=== PATIENT | male | born 1965 | race African-American/Black ===

== ENCOUNTER 2020-05-08 07:14 | Inpatient (IN) | payer BC ==
[2020-05-08] VITALS (13 sets, daily range): BP systolic 119–150; BP diastolic 70–103
[~2020-05-08] VITALS: Ht 180.3 cm; Wt 113.5 kg
[2020-05-08] MEDS ORDERED: PROPOFOL 50 ML IV ONE (07:33)
[2020-05-08] MEDS: PROPOFOL 100 ML IV PRN (07:35)
[2020-05-08] MEDS ORDERED: ALBUTEROL SULFATE 2.5 MG/3 ML NEBU. NEB ONE (07:45)
[2020-05-08] MEDS ORDERED: methylPREDNISolone SOD SUCC PF 125 MG/2 ML VIAL. IV ONE (07:45)
[2020-05-08] MEDS ORDERED: SUCCINYLCHOLINE 200 MG/10 ML VIAL. IV ONE (07:45)
[2020-05-08] MEDS ORDERED: IPRATRPIUM/ALBUTEROL 0.5/2.5MG 3 ML NEBU. NEB ONE (07:45)
[2020-05-08] MEDS ORDERED: ETOMIDATE 20 MG/10 ML VIAL. IV ONE ×2 (07:45→07:55)
[2020-05-08] MEDS ORDERED: cefTRIAXone IV Push 1 GM VIAL. IVP ONE (07:45)
[2020-05-08 07:53] LABS: BASO % 0 % (0-3); EOS # 0.1 x10^3/uL (0.0-0.7); EOS % 1 % (0-3); HEMATOCRIT 48.3 % (39.0-53.0); HEMOGLOBIN 14.6 g/dL (13.0-17.5); LYMPH # 6.9 x10^3/uL (1.0-4.8); LYMPH % 44 % (24-48); MEAN CORPUSCULAR HEMOGLOBIN 24 pg (25-35); MEAN CORPUSCULAR HGB CONC 30 g/dL (31-37); MEAN CORPUSCULAR VOLUME 78 fL (79-100); MONO % 6 % (0-9); NEUT # 7.9 x10^3/uL (1.8-7.7); NEUT % 49 % (31-73); PLATELET COUNT 283 x10^3/uL (140-400); RED BLOOD COUNT 6.18 x10^6/uL (4.30-5.70); RED CELL DISTRIBUTION WIDTH 17.5 % (11.5-14.5)
[2020-05-08] MEDS ORDERED: PROPOFOL 10 MG/ML (20ML) VIAL. IV ONE (08:00)
[2020-05-08] MEDS: MIDAZOLAM HCL/PF 5 MG/5 ML VIAL. IV PRN ×6 (08:05→12:55)
[2020-05-08 08:06] LABS: CALCIUM 7.9 mg/dL (8.5-10.1); CREATININE 2.2 mg/dL (0.7-1.3); GFR 31.1; POTASSIUM 4.5 mmol/L (3.5-5.1)
--- NOTE | 2020-05-08 08:09 | RAD ---
EXAM: Chest, single view. HISTORY: Intubation. COMPARISON: None. FINDINGS: A frontal view of the chest is obtained. There is an endotracheal tube within the mid trachea. There is a nasogastric tube within the stomach. There is diffuse increased interstitial opacity. No pleural effusion or pneumothorax is seen. There is an enlarged cardiac silhouette, a component of which is accentuated due to portable supine technique. IMPRESSION: 1. Endotracheal tube and nasogastric tube in expected position. 2. Diffuse increased interstitial opacity likely due to interstitial infiltrate. Electronically signed by: Jaycee Moyer MD (05/08/2020 8:07 AM) [id number]
[2020-05-08 08:12] LABS: ALBUMIN 3.1 g/dL (3.4-5.0); TOTAL BILIRUBIN 0.5 mg/dL (0.2-1.0); TOTAL PROTEIN 6.1 g/dL (6.4-8.2)
[2020-05-08] MEDS ORDERED: IV NORMAL SALINE 1000ML BAG 1,000 ML IV ONE (08:30)
[2020-05-08] MEDS ORDERED: MIDAZOLAM HCL/PF 5 MG/5 ML VIAL. IV ONE (08:30)
--- NOTE | 2020-05-08 08:30 | PHYS DOC ---
General Adult EDM: Chief Complaint: DYSPNEA/RESPIRATOY DISTRESS HPI: HPI: Patient is a 54-year-old male who lives at home with a history of COPD who presents via EMS with a GCS of 8 and severe respiratory distress. Patient is unable to tell me exactly when his symptoms started. There is been no reported fever chills or sweats. EMS states that there was hydrocodone in the house but they were told he does not take pain medication. EMS did give him Narcan in route and they state that he improved some after being given Narcan. Unknown whether he has been exposed to COVID. [] Review of Systems: Review of Systems: Review of systems is unobtainable secondary to the critical nature of the patient's illness Heart Score: Risk Factors: Risk Factors: DM, Current or recent (<one month) smoker, HTN, HLP, family history of CAD, obesity. Risk Scores: Score 0 - 3: 2.5% MACE over next 6 weeks - Discharge Home Score 4 - 6: 20.3% MACE over next 6 weeks - Admit for Clinical Observation Score 7 - 10: 72.7% MACE over next 6 weeks - Early Invasive Strategies Current Medications: Current Medications Medications (Trade) Dose Ordered Sig/Dario Start Time Stop Time Status Last Admin Dose Admin Albuterol Sulfate (Ventolin Neb Soln) 2.5 mg 1X ONCE 05/08/20 07:45 05/08/20 07:46 UNV Albuterol/ Ipratropium (Duoneb) 6 ml 1X ONCE 05/08/20 07:45 05/08/20 07:46 UNV Ceftriaxone Sodium (Rocephin) 1 gm 1X ONCE 05/08/20 07:45 05/08/20 07:46 UNV Chlorhexidine Gluconate (Peridex) 15 ml BID 05/08/20 09:00 UNV Etomidate (Amidate) 20 mg 1X ONCE 05/08/20 07:45 05/08/20 07:46 UNV 05/08/20 07:30 20 MG Fentanyl Citrate 30 ml @ 0 mls/hr CONT PRN 05/08/20 08:15 UNV Fentanyl Citrate (Fentanyl 2ml Vial) 50 mcg PRN Q1HR PRN 05/08/20 07:45 UNV Methylprednisolone Sodium Succinate (SOLU-Medrol 125MG VIAL) 125 mg 1X ONCE 05/08/20 07:45 05/08/20 07:46 UNV Midazolam HCl 100 ml @ 0 mls/hr CONT PRN 05/08/20 08:15 Propofol (Diprivan) 40 mg 1X ONCE 05/08/20 08:00 05/08/20 08:01 UNV Sodium Chloride 1,000 ml @ 1,000 mls/hr 1X ONCE 05/08/20 08:30 05/08/20 09:29 UNV Succinylcholine Chloride (Anectine) 100 mg 1X ONCE 05/08/20 07:45 05/08/20 07:46 UNV 05/08/20 07:31 100 MG Allergies: Allergies: Allergies Coded Allergies Type Severity Reaction Last Updated Verified No Known Drug Allergies 05/08/20 No Physical Exam: PE: Constitutional: Well developed, well nourished, severe respiratory distress appears acutely ill [] HENT: Normocephalic, atraumatic, bilateral external ears normal, oropharynx moist, no oral exudates, nose normal. [] Eyes: PERRLA, EOMI, conjunctiva normal, no discharge. [] Neck: Normal range of motion, no tenderness, supple, no stridor. [] Cardiovascular:Heart rate regular rhythm, no murmur [] Lungs & Thorax: Diminished breath sounds wheezes in the apices] Abdomen: Bowel sounds normal, soft, no tenderness, no masses, no pulsatile masses. [] Skin: Warm, dry, no erythema, no rash. [] Back: No tenderness, no CVA tenderness. [] Extremities: No tenderness, no cyanosis, no clubbing, ROM intact, no edema. [] Neurologic: Obtunded but does move all 4 extremities [] Psychologic: Obtunded [] Current Patient Data: Labs: Laboratory Tests Test 05/08/20 07:20 White Blood Count 16.0 x10^3/uL (4.0-11.0) H Red Blood Count 6.18 x10^6/uL (4.30-5.70) H Hemoglobin 14.6 g/dL (13.0-17.5) Hematocrit 48.3 % (39.0-53.0) Mean Corpuscular Volume 78 fL (79-100) L Mean Corpuscular Hemoglobin 24 pg (25-35) L Mean Corpuscular Hemoglobin Concent 30 g/dL (31-37) L Red Cell Distribution Width 17.5 % (11.5-14.5) H Platelet Count 283 x10^3/uL (140-400) Neutrophils (%) (Auto) 49 % (31-73) Lymphocytes (%) (Auto) 44 % (24-48) Monocytes (%) (Auto) 6 % (0-9) Eosinophils (%) (Auto) 1 % (0-3) Basophils (%) (Auto) 0 % (0-3) Neutrophils # (Auto) 7.9 x10^3/uL (1.8-7.7) H Lymphocytes # (Auto) 6.9 x10^3/uL (1.0-4.8) H Monocytes # (Auto) 1.0 x10^3/uL (0.0-1.1) Eosinophils # (Auto) 0.1 x10^3/uL (0.0-0.7) Basophils # (Auto) 0.0 x10^3/uL (0.0-0.2) Sodium Level 141 mmol/L (136-145) Potassium Level 4.5 mmol/L (3.5-5.1) Chloride Level 103 mmol/L (98-107) Carbon Dioxide Level 29 mmol/L (21-32) Anion Gap 9 (6-14) Blood Urea Nitrogen 33 mg/dL (8-26) H Creatinine 2.2 mg/dL (0.7-1.3) H Estimated GFR (Cockcroft-Gault) 31.1 BUN/Creatinine Ratio 15 (6-20) Glucose Level 237 mg/dL (70-99) H Calcium Level 7.9 mg/dL (8.5-10.1) L Total Bilirubin 0.5 mg/dL (0.2-1.0) Aspartate Amino Transferase (AST) 64 U/L (15-37) H Alanine Aminotransferase (ALT) 93 U/L (16-63) H Alkaline Phosphatase 37 U/L (46-116) L Troponin I Quantitative 1.123 ng/mL (0.000-0.055) Total Protein 6.1 g/dL (6.4-8.2) L Albumin 3.1 g/dL (3.4-5.0) L Albumin/Globulin Ratio 1.0 (1.0-1.7) Laboratory Tests 05/08/20 07:20 Laboratory Tests 05/08/20 07:20 Vital Signs: Vital Signs Date Time Temp Pulse Resp B/P (MAP) Pulse Ox O2 Delivery O2 Flow Rate FiO2 05/08/20 07:46 100 Ventilator EKG: EKG: EKG: Sinus tachycardia rate of [address]-T changes [] Radiology/Procedures: Radiology/Procedures: []PROCEDURE: CHEST AP ONLY EXAM: Chest, single view. HISTORY: Intubation. COMPARISON: None. FINDINGS: A frontal view of the chest is obtained. There is an endotracheal tube within the mid trachea. There is a nasogastric tube within the stomach. There is diffuse increased interstitial opacity. No pleural effusion or pneumothorax is seen. There is an enlarged cardiac silhouette, a component of which is accentuated due to portable supine technique. IMPRESSION: 1. Endotracheal tube and nasogastric tube in expected position. 2. Diffuse increased interstitial opacity likely due to interstitial infiltrate. Course & Med Decision Making: Course & Med Decision Making Pertinent Labs and Imaging studies reviewed. (See chart for details) [CRITICAL CARE: Time spent was 35 minutes. This includes medical management, evaluation, reevaluation, discussion with consultants and family. Critical Care does NOT include time spent on separately billed procedures.] [email or web address] Disclaimer: [email or web address] Disclaimer: This electronic medical record was generated, in whole or in part, using a voice recognition dictation system. Departure Departure Impression: Primary Impression: Respiratory failure Qualified Codes: J96.01 - Acute respiratory failure with hypoxia Additional Impressions: Suspected COVID-19 virus infection NSTEMI (non-ST elevated myocardial infarction) Cocaine abuse Disposition: ADMITTED INPATIENT Admitting Physician: AARON Condition: CRITICAL Referrals: UNKNOWN PCP NAME (PCP) Justicifation of Admission Dx: Justifications for Admission: Justification of Admission Dx: Yes Respiratory Failure: Mechanical Ventilation Intubation Procedure Intubation Procedure Intub Indication: Respiratory failure Consent: Unable to give consent due to emergent nature. Medications Used: see nursing note Procedure: The patient was placed in the appropriate position. Intubation was performed [cord visualized using 4 Reese blade] 8.0 endotracheal tube. Secured via tube device. Initial confirmation of placement included bilateral breath sounds, tube fogging, adequate chest rise, adequate pulse oximetry reading. A chest x-ray to verify correct placement of the tube showed appropriate tube position. The patient tolerated the procedure well. Complications: none. HERNANDEZ,PETAR C DO May 08, 2020 08:30
[2020-05-08] MEDS: fentaNYL PF VIAL 100 MCG/2 ML VIAL IV PRN ×2 (08:31→12:44)
[2020-05-08] MEDS ORDERED: ONDANSETRON PF 4 MG/2 ML VIAL. IV PRN ×3 (08:45→16:15)
[2020-05-08] MEDS ORDERED: ASPIRIN RECTAL 300 MG SUPP. PR ONE (08:45)
[2020-05-08] MEDS: MIDAZOLAM 100mg/100ml NS BAG 100 ML IV PRN ×2 (08:49→19:03)
[2020-05-08 08:55] LABS: BASE EXCESS COOX -1 mmol/L (-3-3); HCO3 COOX 27 mmol/L (21-28); METHEMOGLOBIN 0.5 % (0.0-1.9); OXYHEMOGLOBIN 94.7 %; PCO2 COOX 59 mmHg (35-46); PO2 COOX 167 mmHg (75-108); SAT O2 COOX 99 % (92-99)
--- NOTE | 2020-05-08 08:56 | EKG ---
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
[2020-05-08] MEDS: CHLORHEXIDINE 0.12% 15 ML MOUTHWASH. MM SCH ×2 (09:00→22:06)
--- NOTE | 2020-05-08 10:26 | PDOC1 ---
History and Physical Date of Admission Date of Admission DATE: 05/08/20 TIME: 10:25 Identification/Chief Complaint Chief Complaint SEEN IN ER WITH ACUTE RESP FAILURE , 54-year-old male who lives at home with a history of COPD who presents via EMS with a GCS of 8 and severe respiratory distress. UNKNOWN when his symptoms started. cocaine pos on UDS, /// INTUBATED IN ER Past Medical History Pulmonary: COPD Family History Family History: High Cholestrol, Hypertension Social History Smoke: <1 pack per day ALCOHOL: none Drugs: None, Cocaine Current Problem List Problem List Problems Medical Problems: (1) NSTEMI (non-ST elevated myocardial infarction) Status: Acute (2) Respiratory failure Status: Acute (3) Suspected COVID-19 virus infection Status: Acute Current Medications Current Medications Current Medications Propofol 50 ml @ As Directed STK-MED ONCE IV ; Start 05/08/20 at 07:33; Stop 05/08/20 at 07:33; Status DC Propofol 100 ml @ 0 mls/hr CONT PRN IV SEE PROTOCOL Last administered on 05/08/20at 07:35; Start 05/08/20 at 07:45 Fentanyl Citrate (Fentanyl 2ml Vial) 50 mcg PRN Q1HR PRN IV SEE COMMENTS Last administered on 05/08/20at 08:31; Start 05/08/20 at 07:45 Chlorhexidine Gluconate (Peridex) 15 ml BID MM ; Start 05/08/20 at 09:00 Etomidate (Amidate) 20 mg 1X ONCE IV Last administered on 05/08/20at 07:30; Start 05/08/20 at 07:45; Stop 05/08/20 at 09:04; Status DC Succinylcholine Chloride (Anectine) 100 mg 1X ONCE IV Last administered on 05/08/20at 07:31; Start 05/08/20 at 07:45; Stop 05/08/20 at 09:04; Status DC Albuterol/ Ipratropium (Duoneb) 6 ml 1X ONCE NEB ; Start 05/08/20 at 07:45; Stop 05/08/20 at 09:04; Status DC Methylprednisolone Sodium Succinate (SOLU-Medrol 125MG VIAL) 125 mg 1X ONCE IV Last administered on 05/08/20at 08:31; Start 05/08/20 at 07:45; Stop 05/08/20 at 09:04; Status DC Albuterol Sulfate (Ventolin Neb Soln) 2.5 mg 1X ONCE NEB ; Start 05/08/20 at 07:45; Stop 05/08/20 at 08:56; Status DC Ceftriaxone Sodium (Rocephin) 1 gm 1X ONCE IVP Last administered on 05/08/20at 08:31; Start 05/08/20 at 07:45; Stop 05/08/20 at 09:04; Status DC Propofol (Diprivan) 40 mg 1X ONCE IV ; Start 05/08/20 at 08:00; Stop 05/08/20 at 09:04; Status DC Fentanyl Citrate 30 ml @ 0 mls/hr CONT PRN IV SEE PROTOCOL; Start 05/08/20 at 08:15 Midazolam HCl 100 ml @ 0 mls/hr CONT PRN IV SEE PROTOCOL Last administered on 05/08/20at 08:49; Start 05/08/20 at 08:15 Sodium Chloride 1,000 ml @ 1,000 mls/hr 1X ONCE IV Last administered on 05/08/20at 08:47; Start 05/08/20 at 08:30; Stop 05/08/20 at 09:29; Status DC Midazolam HCl (Versed) 5 mg 1X ONCE IV Last administered on 05/08/20at 08:33; Start 05/08/20 at 08:30; Stop 05/08/20 at 09:04; Status DC Ondansetron HCl (Zofran) 4 mg PRN Q8HRS PRN IV NAUSEA/VOMITING; Start 05/08/20 at 08:45; Stop 05/09/20 at 08:44 Aspirin (Aspirin Rectal Supp) 300 mg 1X ONCE OH Last administered on 05/08/20at 10:00; Start 05/08/20 at 08:45; Stop 05/08/20 at 09:04; Status DC Allergies Allergies: Coded Allergies: No Known Drug Allergies (Unverified , 05/08/20) ROS Review of System Review of systems is unobtainable, ON VENT Neurological: Yes Confusion Physical Exam Physical Exam Constitutional: Well developed, well nourished, severe respiratory distress appears acutely ill [] HENT: Normocephalic, atraumatic, bilateral external ears normal, oropharynx moist, no oral exudates, nose normal. [] Eyes: PERRLA, EOMI, conjunctiva normal, no discharge. [] Neck: Normal range of motion, no tenderness, supple, no stridor. [] Cardiovascular:Heart rate regular rhythm, no murmur [] Lungs & Thorax: Diminished breath sounds wheezes in the apices] Abdomen: Bowel sounds normal, soft, no tenderness, no masses, no pulsatile masses. [] Skin: Warm, dry, no erythema, no rash. [] Back: No tenderness, no CVA tenderness. [] Extremities: No tenderness, no cyanosis, no clubbing, ROM intact, no edema. [] Neurologic: SEDATED ON VENT Heart: RRR Abdomen: Soft, No tenderness Rectal Exam: not examined Vitals Vitals Vital Signs Date Time Temp Pulse Resp B/P (MAP) Pulse Ox O2 Delivery O2 Flow Rate FiO2 05/08/20 10:00 98 Ventilator Labs Labs Laboratory Tests Test 05/08/20 07:20 05/08/20 08:45 White Blood Count 16.0 x10^3/uL (4.0-11.0) Red Blood Count 6.18 x10^6/uL (4.30-5.70) Hemoglobin 14.6 g/dL (13.0-17.5) Hematocrit 48.3 % (39.0-53.0) Mean Corpuscular Volume 78 fL (79-100) Mean Corpuscular Hemoglobin 24 pg (25-35) Mean Corpuscular Hemoglobin Concent 30 g/dL (31-37) Red Cell Distribution Width 17.5 % (11.5-14.5) Platelet Count 283 x10^3/uL (140-400) Neutrophils (%) (Auto) 49 % (31-73) Lymphocytes (%) (Auto) 44 % (24-48) Monocytes (%) (Auto) 6 % (0-9) Eosinophils (%) (Auto) 1 % (0-3) Basophils (%) (Auto) 0 % (0-3) Neutrophils # (Auto) 7.9 x10^3/uL (1.8-7.7) Lymphocytes # (Auto) 6.9 x10^3/uL (1.0-4.8) Monocytes # (Auto) 1.0 x10^3/uL (0.0-1.1) Eosinophils # (Auto) 0.1 x10^3/uL (0.0-0.7) Basophils # (Auto) 0.0 x10^3/uL (0.0-0.2) Sodium Level 141 mmol/L (136-145) Potassium Level 4.5 mmol/L (3.5-5.1) Chloride Level 103 mmol/L (98-107) Carbon Dioxide Level 29 mmol/L (21-32) Anion Gap 9 (6-14) Blood Urea Nitrogen 33 mg/dL (8-26) Creatinine 2.2 mg/dL (0.7-1.3) Estimated GFR (Cockcroft-Gault) 31.1 BUN/Creatinine Ratio 15 (6-20) Glucose Level 237 mg/dL (70-99) Calcium Level 7.9 mg/dL (8.5-10.1) Total Bilirubin 0.5 mg/dL (0.2-1.0) Aspartate Amino Transf (AST/SGOT) 64 U/L (15-37) Alanine Aminotransferase (ALT/SGPT) 93 U/L (16-63) Alkaline Phosphatase 37 U/L (46-116) Troponin I Quantitative 1.123 ng/mL (0.000-0.055) LX-Ewr-W-Type Natriuretic Peptide 5279 pg/mL (0-124) Total Protein 6.1 g/dL (6.4-8.2) Albumin 3.1 g/dL (3.4-5.0) Albumin/Globulin Ratio 1.0 (1.0-1.7) O2 Saturation 99 % (92-99) Arterial Blood pH 7.28 (7.35-7.45) Arterial Blood pCO2 at Patient Temp 59 mmHg (35-46) Arterial Blood pO2 at Patient Temp 167 mmHg (75-108) Arterial Blood HCO3 27 mmol/L (21-28) Arterial Blood Base Excess -1 mmol/L (-3-3) Oxyhemoglobin 94.7 % Methemoglobin 0.5 % (0.0-1.9) Carbon Monoxide, Quantitative 3.4 % (0.0-1.9) FiO2 100 Laboratory Tests Test 05/08/20 07:20 05/08/20 08:45 White Blood Count 16.0 x10^3/uL (4.0-11.0) Red Blood Count 6.18 x10^6/uL (4.30-5.70) Hemoglobin 14.6 g/dL (13.0-17.5) Hematocrit 48.3 % (39.0-53.0) Mean Corpuscular Volume 78 fL (79-100) Mean Corpuscular Hemoglobin 24 pg (25-35) Mean Corpuscular Hemoglobin Concent 30 g/dL (31-37) Red Cell Distribution Width 17.5 % (11.5-14.5) Platelet Count 283 x10^3/uL (140-400) Neutrophils (%) (Auto) 49 % (31-73) Lymphocytes (%) (Auto) 44 % (24-48) Monocytes (%) (Auto) 6 % (0-9) Eosinophils (%) (Auto) 1 % (0-3) Basophils (%) (Auto) 0 % (0-3) Neutrophils # (Auto) 7.9 x10^3/uL (1.8-7.7) Lymphocytes # (Auto) 6.9 x10^3/uL (1.0-4.8) Monocytes # (Auto) 1.0 x10^3/uL (0.0-1.1) Eosinophils # (Auto) 0.1 x10^3/uL (0.0-0.7) Basophils # (Auto) 0.0 x10^3/uL (0.0-0.2) Sodium Level 141 mmol/L (136-145) Potassium Level 4.5 mmol/L (3.5-5.1) Chloride Level 103 mmol/L (98-107) Carbon Dioxide Level 29 mmol/L (21-32) Anion Gap 9 (6-14) Blood Urea Nitrogen 33 mg/dL (8-26) Creatinine 2.2 mg/dL (0.7-1.3) Estimated GFR (Cockcroft-Gault) 31.1 BUN/Creatinine Ratio 15 (6-20) Glucose Level 237 mg/dL (70-99) Calcium Level 7.9 mg/dL (8.5-10.1) Total Bilirubin 0.5 mg/dL (0.2-1.0) Aspartate Amino Transf (AST/SGOT) 64 U/L (15-37) Alanine Aminotransferase (ALT/SGPT) 93 U/L (16-63) Alkaline Phosphatase 37 U/L (46-116) Troponin I Quantitative 1.123 ng/mL (0.000-0.055) EO-Cee-S-Type Natriuretic Peptide 5279 pg/mL (0-124) Total Protein 6.1 g/dL (6.4-8.2) Albumin 3.1 g/dL (3.4-5.0) Albumin/Globulin Ratio 1.0 (1.0-1.7) O2 Saturation 99 % (92-99) Arterial Blood pH 7.28 (7.35-7.45) Arterial Blood pCO2 at Patient Temp 59 mmHg (35-46) Arterial Blood pO2 at Patient Temp 167 mmHg (75-108) Arterial Blood HCO3 27 mmol/L (21-28) Arterial Blood Base Excess -1 mmol/L (-3-3) Oxyhemoglobin 94.7 % Methemoglobin 0.5 % (0.0-1.9) Carbon Monoxide, Quantitative 3.4 % (0.0-1.9) FiO2 100 Images Images EXAM: Chest, single view. HISTORY: Intubation. COMPARISON: None. FINDINGS: A frontal view of the chest is obtained. There is an endotracheal tube within the mid trachea. There is a nasogastric tube within the stomach. There is diffuse increased interstitial opacity. No pleural effusion or pneumothorax is seen. There is an enlarged cardiac silhouette, a component of which is accentuated due to portable supine technique. IMPRESSION: 1. Endotracheal tube and nasogastric tube in expected position. 2. Diffuse increased interstitial opacity likely due to interstitial infiltrate. Electronically signed by: Jaycee Moyer MD (05/08/2020 8:07 AM) [id number] DICTATED and SIGNED BY: JAYCEE MOYER MD DATE: 05/08/20 0807 VTE Prophylaxis Ordered VTE Prophylaxis Devices: Yes VTE Pharmacological Prophylaxi: Yes Assessment/Plan Assessment/Plan Impression: Respiratory failure COPD ACUTE HYPOXIC RESP FAILURE Suspected COVID-19 virus infection NSTEMI (non-ST elevated myocardial infarction) COCAINE ABUSE Morbid obesity EVY ADMITTED ICU BED PULM CONSULT CARDIOLOGY CONSULT VENT SUPPORT dvt prophylaxis GI PROPHYLAXIS ECHO TAPERING IV STEROIDS covid 19 screen Nephrology consult 50 min cc time Justicifation of Admission Dx: Justifications for Admission: Justification of Admission Dx: Yes CHF: Hemodynamic Instability Respiratory Failure: Mechanical Ventilation Acute COPD Exacerbation: Acute COPD Exacerbation Altered Mental Status: Altered Mental Status CLARK MCMANUS MD May 08, 2020 10:26
[2020-05-08 10:34] LABS: BILIRUBIN,URINE NEGATIVE (NEG); CLARITY,URINE TURBID; COLOR,URINE AMBER; NITRITE,URINE NEGATIVE (NEG); PH,URINE 5.5 (<5.0-8.0); PROTEIN,URINE >=300 mg/dL (NEG-TRACE)
[2020-05-08 10:42] LABS: AMPHETAMINE/METHAMPHETAMINE NEG (NEG); BARBITURATES NEG (NEG); BENZODIAZEPINES POS (NEG); CANNABINOIDS NEG (NEG); COCAINE POS (NEG); METHADONE NEG (NEG); OPIATES NEG (NEG); PHENCYCLIDINE NEG (NEG)
[2020-05-08 10:49] LABS: AMORPHOUS SEDIMENT,UR PRESENT /HPF; BACTERIA,URINE 0 /HPF (0-FEW); SPERM,URINE PRESENT /HPF; SQUAMOUS EPITHELIAL CELL,UR FEW /LPF
[2020-05-08] MEDS ORDERED: IV NORMAL SALINE 1000ML BAG 1,000 ML IV SCH (11:24)
[2020-05-08] MEDS ORDERED: SODIUM PHOSPHATES 19/7GM 133 ML ENEMA. PR PRN ×2 (11:30→16:15)
[2020-05-08] MEDS ORDERED: IPRATRPIUM/ALBUTEROL 0.5/2.5MG 3 ML NEBU. NEB SCH ×2 (11:30→16:15)
[2020-05-08] MEDS ORDERED: 0.9 % SODIUM CHLORIDE 10 ML DISP.SYRIN. IV PRN ×2 (11:30→16:15)
[2020-05-08] MEDS ORDERED: ACETAMINOPHEN 650 MG SUPP.RECT. PR PRN ×2 (11:30→16:15)
[2020-05-08] MEDS ORDERED: FLUT1DIS IH (12:03)
[2020-05-08] MEDS ORDERED: PROVENTIL HFA6.7 G2 INH (12:04)
[2020-05-08] MEDS ORDERED: AMLODIPINE BENAZEP PO (12:08)
--- NOTE | 2020-05-08 12:47 | PDOC2 ---
BELINDA NAVARRO SILK OPENER 05/08/20 1247: CARDIAC CONSULT DATE OF CONSULT Date of Consult DATE: 05/08/20 TIME: 12:39 REASON FOR CONSULT Reason for Consult: NSTEMI REFERRING PHYSICIAN Referring Physician: Dr. Ledesma SOURCE Source: Chart review HISTORY OF PRESENT ILLNESS HISTORY OF PRESENT ILLNESS This is a 54 yo male who presented secondary to respiratory distress. Troponin noted to be elevated, which prompted this consult. Patient intubated, sedative and unable to provide any history. Patient and are here form [place] visiting family. Family reported found him in respiratory distress and EMS was called. Was significantly hxpoxic upon their arrival. No reports of chest pain or recent fevers. No known sick contacts. Was lightheaded yesterday. reports his abdomen has been distended and she noticed some left lower extremity edema. A week ago was hospitalized due to acute respiratory failure, hypoxia. Was set up for outpatient CONNER evaluation. Was sent home with PRN oxygen. Normally goes to [facility] in [place], [place]. reports normal echocardiogram about a year ago. She denies any drug use although UDS was + for cocaine. PAST MEDICAL HISTORY Cardiovascular: HTN Pulmonary: COPD PAST SURGICAL HISTORY Past Surgical History: Hernia Repair, No pertinent history FAMILY HISTORY Family History: Hypertension SOCIAL HISTORY Smoke: 1 pack per day ALCOHOL: social Drugs: Cocaine Lives: with Family CURRENT MEDICATIONS CURRENT MEDICATIONS Current Medications Medications (Trade) Dose Ordered Sig/Dario Route PRN Reason Start Time Stop Time Status Last Admin Dose Admin Propofol 100 ml @ 0 mls/hr CONT PRN IV SEE PROTOCOL 05/08/20 07:45 05/08/20 07:35 Fentanyl Citrate (Fentanyl 2ml Vial) 50 mcg PRN Q1HR PRN IV SEE COMMENTS 05/08/20 07:45 05/08/20 08:31 Etomidate (Amidate) 20 mg 1X ONCE IV 05/08/20 07:45 05/08/20 09:04 DC 05/08/20 07:30 Succinylcholine Chloride (Anectine) 100 mg 1X ONCE IV 05/08/20 07:45 05/08/20 09:04 DC 05/08/20 07:31 Methylprednisolone Sodium Succinate (SOLU-Medrol 125MG VIAL) 125 mg 1X ONCE IV 05/08/20 07:45 05/08/20 09:04 DC 05/08/20 08:31 Ceftriaxone Sodium (Rocephin) 1 gm 1X ONCE IVP 05/08/20 07:45 05/08/20 09:04 DC 05/08/20 08:31 Midazolam HCl 100 ml @ 0 mls/hr CONT PRN IV SEE PROTOCOL 05/08/20 08:15 05/08/20 08:49 Sodium Chloride 1,000 ml @ 1,000 mls/hr 1X ONCE IV 05/08/20 08:30 05/08/20 09:29 DC 05/08/20 08:47 Midazolam HCl (Versed) 5 mg 1X ONCE IV 05/08/20 08:30 05/08/20 09:04 DC 05/08/20 08:33 Aspirin (Aspirin Rectal Supp) 300 mg 1X ONCE RI 05/08/20 08:45 05/08/20 09:04 DC 05/08/20 10:00 Etomidate (Amidate) 40 mg 1X ONCE IV 05/08/20 07:55 05/08/20 12:05 DC 05/08/20 07:57 ALLERGIES ALLERGIES: Coded Allergies: No Known Drug Allergies (Unverified , 05/08/20) ROS Review of System unobtainable. PHYSICAL EXAM General: Other (sedated ) HEENT: Atraumatic Lungs: Other (mechanical vent) Heart: Regular rate, Other Abdomen: Soft Extremities: Other (1+ bilateral LE edema ) Skin: No significant lesion Neuro: Other (sedated ) MUSCULOSKELETAL: No deformity VITALS/I&O VITALS/I&O: Vital Signs Date Time Temp Pulse Resp B/P (MAP) Pulse Ox O2 Delivery O2 Flow Rate FiO2 05/08/20 12:20 100 Ventilator 05/08/20 11:30 20 140/98 (112) 05/08/20 10:30 72 05/08/20 07:30 15.0 05/08/20 07:14 96.8 96.8 LABS Lab: Laboratory Tests Test 05/08/20 07:17 05/08/20 07:20 05/08/20 08:45 05/08/20 09:20 Glucose (Fingerstick) 231 mg/dL (70-99) H White Blood Count 16.0 x10^3/uL (4.0-11.0) H Red Blood Count 6.18 x10^6/uL (4.30-5.70) H Hemoglobin 14.6 g/dL (13.0-17.5) Hematocrit 48.3 % (39.0-53.0) Mean Corpuscular Volume 78 fL (79-100) L Mean Corpuscular Hemoglobin 24 pg (25-35) L Mean Corpuscular Hemoglobin Concent 30 g/dL (31-37) L Red Cell Distribution Width 17.5 % (11.5-14.5) H Platelet Count 283 x10^3/uL (140-400) Neutrophils (%) (Auto) 49 % (31-73) Lymphocytes (%) (Auto) 44 % (24-48) Monocytes (%) (Auto) 6 % (0-9) Eosinophils (%) (Auto) 1 % (0-3) Basophils (%) (Auto) 0 % (0-3) Neutrophils # (Auto) 7.9 x10^3/uL (1.8-7.7) H Lymphocytes # (Auto) 6.9 x10^3/uL (1.0-4.8) H Monocytes # (Auto) 1.0 x10^3/uL (0.0-1.1) Eosinophils # (Auto) 0.1 x10^3/uL (0.0-0.7) Basophils # (Auto) 0.0 x10^3/uL (0.0-0.2) Sodium Level 141 mmol/L (136-145) Potassium Level 4.5 mmol/L (3.5-5.1) Chloride Level 103 mmol/L (98-107) Carbon Dioxide Level 29 mmol/L (21-32) Anion Gap 9 (6-14) Blood Urea Nitrogen 33 mg/dL (8-26) H Creatinine 2.2 mg/dL (0.7-1.3) H Estimated GFR (Cockcroft-Gault) 31.1 BUN/Creatinine Ratio 15 (6-20) Glucose Level 237 mg/dL (70-99) H Calcium Level 7.9 mg/dL (8.5-10.1) L Total Bilirubin 0.5 mg/dL (0.2-1.0) Aspartate Amino Transferase (AST) 64 U/L (15-37) H Alanine Aminotransferase (ALT) 93 U/L (16-63) H Alkaline Phosphatase 37 U/L (46-116) L Troponin I Quantitative 1.123 ng/mL (0.000-0.055) KK-Mdg-S-Type Natriuretic Peptide 5279 pg/mL (0-124) H Total Protein 6.1 g/dL (6.4-8.2) L Albumin 3.1 g/dL (3.4-5.0) L Albumin/Globulin Ratio 1.0 (1.0-1.7) O2 Saturation 99 % (92-99) Arterial Blood pH 7.28 (7.35-7.45) L Arterial Blood pCO2 at Patient Temp 59 mmHg (35-46) H Arterial Blood pO2 at Patient Temp 167 mmHg (75-108) H Arterial Blood HCO3 27 mmol/L (21-28) Arterial Blood Base Excess -1 mmol/L (-3-3) Oxyhemoglobin 94.7 % Methemoglobin 0.5 % (0.0-1.9) Carbon Monoxide, Quantitative 3.4 % (0.0-1.9) H FiO2 100 Urine Collection Type Unknown Urine Color Mariluz Urine Clarity Turbid Urine pH 5.5 (<5.0-8.0) Urine Specific [place] 1.025 (1.000-1.030) Urine Protein >=300 mg/dL (NEG-TRACE) Urine Glucose (UA) 100 mg/dL (NEG) Urine Ketones (Stick) Negative mg/dL (NEG) Urine Blood Large (NEG) Urine Nitrite Negative (NEG) Urine Bilirubin Negative (NEG) Urine Urobilinogen Dipstick 1.0 mg/dL (0.2 mg/dL) Urine Leukocyte Esterase Negative (NEG) Urine RBC 6-10 /HPF (0-2) Urine WBC 1-4 /HPF (0-4) Urine Squamous Epithelial Cells Few /LPF Urine Amorphous Sediment Present /HPF Urine Bacteria 0 /HPF (0-FEW) Urine Sperm Present /HPF Urine Opiates Screen Neg (NEG) Urine Methadone Screen Neg (NEG) Urine Barbiturates Neg (NEG) Urine Phencyclidine Screen Neg (NEG) Urine Amphetamine/Methamphetamine Neg (NEG) Urine Benzodiazepines Screen Pos (NEG) Urine Cocaine Screen Pos (NEG) Urine Cannabinoids Screen Neg (NEG) Urine Ethyl Alcohol Neg (NEG) Test 05/08/20 11:00 Troponin I Quantitative 1.629 ng/mL (0.000-0.055) Laboratory Tests 05/08/20 07:20 Laboratory Tests 05/08/20 07:20 ASSESSMENT/PLAN ASSESSMENT/PLAN 1. Acute on chronic respiratory failure with AECOPD and mild acute CHF. s/p intubation. COVID pending. reports hospitalization last week for hypoxia, respiratory failure. Outpatient sleep study was recommended. PRN oxygen was provided. 2. NSTEMI; highest trop 1.6. Possibly type II, demand ischemia in the setting of EVY, respiratory failure/hypoxia. 3. EVY; denies any prior renal disease 4. Elevated LFTs 5. Leukocytosis 6. Elevated glucose 7. Substance abuse; UDS + cocaine 8. Probable CONNER Recommendations ASA Lipids, A1C Trend trop Echo to assess LV systolic function pending negative COVID testing Obtain records from [facility] in [place], [place]. Consider further ischemic evaluation pending course of hospitalization Follow pulm recs Supportive care. TINY MARSHALL MD 05/09/20 1254: CARDIAC CONSULT ASSESSMENT/PLAN ASSESSMENT/PLAN Late entry for 05/08/2020 Patient seen and examined. Agree with above nurse practitioner note. Awaiting outside hospital records. Suspect that elevated troponin is likely secondary to respiratory failure and not the primary cause. Continue aspirin. Will consider heparinization as necessary depending on clinical status. Supportive care. We will follow along. Critically ill. BELINDA NAVARRO APRN May 08, 2020 12:47 TINY MARSHALL MD May 09, 2020 12:54
[2020-05-08] MEDS: PANTOPRAZOLE IV PUSH 40 MG VIAL. IVP SCH (12:57)
[2020-05-08 13:26] LABS: CHOLESTEROL/HDL RATIO 3.3
[2020-05-08 13:51] LABS: PROTHROMBIN TIME PATIENT 15.2 SEC (11.7-14.0)
--- NOTE | 2020-05-08 13:54 | CONS ---
DATE OF CONSULTATION: PULMONARY CONSULTATION ATTENDING PHYSICIAN: Lukas Jiang MD. REASON FOR CONSULTATION: Respiratory failure. HISTORY OF PRESENT ILLNESS: The patient is a 54-year-old male who has history of COPD. He was brought in via EMS with a Renato coma scale of 8 and in severe respiratory distress. The patient was intubated in the Emergency Room. His urine drug screen was positive for cocaine. Apparently, he was visiting his relatives in [place] and is from [place]. His arterial blood gases revealed a pH of 7.28, pCO2 of 59 and a pO2 of 167 on 100% FiO2. His rate has been increased and FiO2 has been reduced to 70%. He is currently sedated. He also has EVY with a creatinine of 2.2 and a BUN of 33. The patient's chest x-ray was reviewed and it showed mild interstitial prominence. Endotracheal tube is in satisfactory position. Consultation requested for further evaluation and management. I saw the patient in the Emergency Room. PAST MEDICAL HISTORY: Unknown, but likely COPD. The patient is from [place]. PAST SURGICAL HISTORY: Unknown. ALLERGIES: None. MEDICATIONS: Reviewed as listed in the MRAD including Lovenox for DVT prophylaxis, DuoNebs, IV Solu-Medrol. REVIEW OF SYSTEMS: Unable to obtain as he is sedated and intubated. SOCIAL HISTORY: Appears to be cocaine abuse. Urine drug screen was positive. PHYSICAL EXAMINATION: GENERAL: He is intubated and sedated. VITAL SIGNS: Blood pressure 140/98, pulse ox 100%. He is afebrile, 96.8 temperature. HEENT: Sclerae with mild ecchymosis of the conjunctivae. NECK: With no JVD. LUNGS: With diminished breath sounds. CARDIOVASCULAR: With a regular rate. ABDOMEN: Obese. EXTREMITIES: With trace pitting edema. LABORATORY DATA: Reviewed. BUN 33, creatinine 2.2. AST and ALT elevated. Troponin 1.6. Urine toxicology screen positive for cocaine. ABG discussed in my history of present illness. White cell count 16.0, hemoglobin 14.6, and platelets are 283. IMPRESSION: 1. Acute hypoxic and hypercapnic respiratory failure secondary to multifactorial etiologies including suspected chronic obstructive pulmonary disease with acute exacerbation, non-ST myocardial infarction, and cocaine overdose. Possibility of narcotic overdose is also a consideration as the patient reportedly takes pain medication. 2. Underlying chronic obstructive pulmonary disease, clinically suspected. 3. Abnormal chest x-ray with prominent interstitial markings, probably related to mild interstitial edema. 4. Abnormal troponin consistent with non-ST myocardial infarction. 5. Acute kidney injury. 6. Abnormal LFTs. Could be related to hypoperfusion. 7. Urine drug screen positive for cocaine. RECOMMENDATIONS: 1. Continue with present assist control mode. Follow ABGs and make necessary adjustments. 2. Follow Cardiology recommendations. 3. COVID-19 needs to be ruled out. We will keep him under isolation. 4. IV Solu-Medrol. 5. Lovenox for DVT prophylaxis. 6. Follow troponin levels. 7. Renal consultation and follow their recommendation. 8. We will need to obtain old records from [place]. 9. Discussed with ER physician. 10. Discussed with RN and Cardiology. We will follow along with you. Critical care time 37 minutes. KARYNA FRASER MD DR: GEOVANNI/chadwick JOB#: [id number] / [id number]
[2020-05-08] MEDS: methylPREDNISolone SOD SUCC PF 125 MG/2 ML VIAL. IV SCH ×2 (15:36→22:06)
[2020-05-08] MEDS: ENOXAPARIN 40 MG/0.4 ML SYRINGE. SQ SCH (17:17)
[2020-05-08] MEDS ORDERED: ASPIRIN CHEWABLE 81 MG TABLET. PO SCH (17:30)
[2020-05-08 18:41] LABS: BILIRUBIN,URINE SMALL (NEG); CLARITY,URINE TURBID; COLOR,URINE YELLOW; NITRITE,URINE NEGATIVE (NEG); PROTEIN,URINE 100 mg/dL (NEG-TRACE)
[2020-05-08 18:54] LABS: AMORPHOUS SEDIMENT,UR PRESENT /HPF; BACTERIA,URINE 0 /HPF (0-FEW)
[2020-05-08] MEDS ORDERED: ALBUTEROL SULFATE 2.5 MG/3 ML NEBU. NEB PRN (19:00)
[2020-05-08] MEDS: IV NORMAL SALINE 1000ML BAG 1,000 ML IV SCH (22:07)
[2020-05-09] VITALS (24 sets, daily range): BP systolic 122–161; BP diastolic 73–113
[2020-05-09 01:08] LABS: HEMOGLOBIN A1C 6.7 % (4.8-5.6)
[2020-05-09] MEDS: IV NORMAL SALINE 1000ML BAG 1,000 ML IV SCH ×2 (02:32→15:03)
[2020-05-09] MEDS: MIDAZOLAM 100mg/100ml NS BAG 100 ML IV PRN ×2 (03:38→14:44)
[2020-05-09 04:11] LABS: BASO % 0 % (0-3); EOS % 0 % (0-3); HEMATOCRIT 44.5 % (39.0-53.0); HEMOGLOBIN 13.6 g/dL (13.0-17.5); LYMPH # 0.7 x10^3/uL (1.0-4.8); LYMPH % 9 % (24-48); MEAN CORPUSCULAR HEMOGLOBIN 23 pg (25-35); MEAN CORPUSCULAR HGB CONC 31 g/dL (31-37); MEAN CORPUSCULAR VOLUME 76 fL (79-100); MONO # 0.2 x10^3/uL (0.0-1.1); MONO % 2 % (0-9); NEUT # 7.3 x10^3/uL (1.8-7.7); NEUT % 89 % (31-73); PLATELET COUNT 214 x10^3/uL (140-400); RED BLOOD COUNT 5.89 x10^6/uL (4.30-5.70); RED CELL DISTRIBUTION WIDTH 17.2 % (11.5-14.5); WHITE BLOOD COUNT 8.2 x10^3/uL (4.0-11.0)
[2020-05-09 05:11] LABS: ALBUMIN 2.6 g/dL (3.4-5.0); CALCIUM 7.6 mg/dL (8.5-10.1); CREATININE 2.4 mg/dL (0.7-1.3); GFR 34.1; POTASSIUM 4.7 mmol/L (3.5-5.1); TOTAL BILIRUBIN 0.6 mg/dL (0.2-1.0); TOTAL PROTEIN 5.2 g/dL (6.4-8.2)
--- NOTE | 2020-05-09 05:33 | RAD ---
Examination: Ultrasound kidneys HISTORY: History of acute renal insufficiency COMPARISON: None available FINDINGS: The right kidney measures 11.8 x 5.7 x 5.3 cm . The left kidney measures 13.5 x 6.2 x 5.2 cm. Echogenic appearing bilateral kidneys. No evidence of hydronephrosis. Frances catheter identified in the urinary bladder. IMPRESSION: Echogenic appearing bilateral kidneys probably medical renal disease. No evidence of hydronephrosis. Electronically signed by: Alex Yanes MD (05/09/2020 5:30 AM) [id number]
[2020-05-09] MEDS: methylPREDNISolone SOD SUCC PF 125 MG/2 ML VIAL. IV SCH ×3 (06:10→22:22)
[2020-05-09 07:37] LABS: % LYMPHS 10 % (24-48); % MONOS 6 % (0-10); % SEGS 84 % (35-66); NUCLEATED RBC 2; PLT ESTIMATE ADEQUATE (ADEQUATE)
[2020-05-09 07:38] LABS: ANISOCYTOSIS SLIGHT; POLYCHROMASIA SLIGHT
[2020-05-09] MEDS: cefTRIAXone IV Push 1 GM VIAL. IVP SCH (08:22)
[2020-05-09] MEDS: CHLORHEXIDINE 0.12% 15 ML MOUTHWASH. MM SCH ×2 (08:22→22:21)
[2020-05-09] MEDS: ASPIRIN CHEWABLE 81 MG TABLET. PO SCH (08:22)
[2020-05-09] MEDS: PANTOPRAZOLE IV PUSH 40 MG VIAL. IVP SCH (08:22)
[2020-05-09] MEDS ORDERED: ENOXAPARIN 40 MG/0.4 ML SYRINGE. SQ SCH (09:00)
[2020-05-09 09:03] LABS: BASE EXCESS ABG 0 mmol/L (-3-3); CORRECTED PCO2 ABG 46 mmHg; CORRECTED PH ABG 7.37; CORRECTED PO2 ABG 71 mmHg; HCO3 ABG 26 mmol/L (21-28); PCO2 ABG 47 mmHg (35-46); PO2 ABG 72 mmHg (75-108); SAT O2 ABG 93 % (92-99)
[2020-05-09 09:30] LABS: FIO2 ABG 70% VENT
--- NOTE | 2020-05-09 09:39 | PDOC ---
PULMONARY PROGRESS NOTES Subjective remains intubated/sedated AC mode, 70%FIO2 Vitals Vital Signs Date Time Temp Pulse Resp B/P (MAP) Pulse Ox O2 Delivery O2 Flow Rate FiO2 05/09/20 08:10 97 Ventilator 05/09/20 07:00 79 20 140/83 (102) 05/09/20 04:45 98.8 98.8 05/09/20 00:19 15.0 Comments Visual exam done done.due to COVID suspicion sedated/ in sync with vent no JVD no rash Labs Laboratory Tests Test 05/08/20 07:17 05/08/20 07:20 05/08/20 08:45 05/08/20 09:20 Glucose (Fingerstick) 231 mg/dL (70-99) White Blood Count 16.0 x10^3/uL (4.0-11.0) Red Blood Count 6.18 x10^6/uL (4.30-5.70) Hemoglobin 14.6 g/dL (13.0-17.5) Hematocrit 48.3 % (39.0-53.0) Mean Corpuscular Volume 78 fL (79-100) Mean Corpuscular Hemoglobin 24 pg (25-35) Mean Corpuscular Hemoglobin Concent 30 g/dL (31-37) Red Cell Distribution Width 17.5 % (11.5-14.5) Platelet Count 283 x10^3/uL (140-400) Neutrophils (%) (Auto) 49 % (31-73) Lymphocytes (%) (Auto) 44 % (24-48) Monocytes (%) (Auto) 6 % (0-9) Eosinophils (%) (Auto) 1 % (0-3) Basophils (%) (Auto) 0 % (0-3) Neutrophils # (Auto) 7.9 x10^3/uL (1.8-7.7) Lymphocytes # (Auto) 6.9 x10^3/uL (1.0-4.8) Monocytes # (Auto) 1.0 x10^3/uL (0.0-1.1) Eosinophils # (Auto) 0.1 x10^3/uL (0.0-0.7) Basophils # (Auto) 0.0 x10^3/uL (0.0-0.2) Prothrombin Time 15.2 SEC (11.7-14.0) Prothromb Time International Ratio 1.2 (0.8-1.1) Sodium Level 141 mmol/L (136-145) Potassium Level 4.5 mmol/L (3.5-5.1) Chloride Level 103 mmol/L (98-107) Carbon Dioxide Level 29 mmol/L (21-32) Anion Gap 9 (6-14) Blood Urea Nitrogen 33 mg/dL (8-26) Creatinine 2.2 mg/dL (0.7-1.3) Estimated GFR (Cockcroft-Gault) 31.1 BUN/Creatinine Ratio 15 (6-20) Glucose Level 237 mg/dL (70-99) Hemoglobin A1c 6.7 % (4.8-5.6) Calcium Level 7.9 mg/dL (8.5-10.1) Total Bilirubin 0.5 mg/dL (0.2-1.0) Aspartate Amino Transf (AST/SGOT) 64 U/L (15-37) Alanine Aminotransferase (ALT/SGPT) 93 U/L (16-63) Alkaline Phosphatase 37 U/L (46-116) Troponin I Quantitative 1.123 ng/mL (0.000-0.055) LO-[id number]-Type Natriuretic Peptide 5279 pg/mL (0-124) Total Protein 6.1 g/dL (6.4-8.2) Albumin 3.1 g/dL (3.4-5.0) Albumin/Globulin Ratio 1.0 (1.0-1.7) Triglycerides Level 119 mg/dL (0-150) Cholesterol Level 109 mg/dL (0-200) LDL Cholesterol, Calculated 52 mg/dL (0-100) VLDL Cholesterol, Calculated 24 mg/dL (0-40) Non-HDL Cholesterol Calculated 76 mg/dL (0-129) HDL Cholesterol 33 mg/dL (40-60) Cholesterol/HDL Ratio 3.3 Thyroid Stimulating Hormone (TSH) 5.769 uIU/mL (0.358-3.74) O2 Saturation 99 % (92-99) Arterial Blood pH 7.28 (7.35-7.45) Arterial Blood pCO2 at Patient Temp 59 mmHg (35-46) Arterial Blood pO2 at Patient Temp 167 mmHg (75-108) Arterial Blood HCO3 27 mmol/L (21-28) Arterial Blood Base Excess -1 mmol/L (-3-3) Oxyhemoglobin 94.7 % Methemoglobin 0.5 % (0.0-1.9) Carbon Monoxide, Quantitative 3.4 % (0.0-1.9) FiO2 100 Urine Collection Type Unknown Urine Color [place] Urine Clarity Turbid Urine pH 5.5 (<5.0-8.0) Urine Specific [place] 1.025 (1.000-1.030) Urine Protein >=300 mg/dL (NEG-TRACE) Urine Glucose (UA) 100 mg/dL (NEG) Urine Ketones (Stick) Negative mg/dL (NEG) Urine Blood Large (NEG) Urine Nitrite Negative (NEG) Urine Bilirubin Negative (NEG) Urine Urobilinogen Dipstick 1.0 mg/dL (0.2 mg/dL) Urine Leukocyte Esterase Negative (NEG) Urine RBC 6-10 /HPF (0-2) Urine WBC 1-4 /HPF (0-4) Urine Squamous Epithelial Cells Few /LPF Urine Amorphous Sediment Present /HPF Urine Bacteria 0 /HPF (0-FEW) Urine Sperm Present /HPF Urine Opiates Screen Neg (NEG) Urine Methadone Screen Neg (NEG) Urine Barbiturates Neg (NEG) Urine Phencyclidine Screen Neg (NEG) Urine Amphetamine/Methamphetamine Neg (NEG) Urine Benzodiazepines Screen Pos (NEG) Urine Cocaine Screen Pos (NEG) Urine Cannabinoids Screen Neg (NEG) Urine Ethyl Alcohol Neg (NEG) Test 05/08/20 11:00 05/08/20 14:45 05/08/20 17:20 05/09/20 03:05 Troponin I Quantitative 1.629 ng/mL (0.000-0.055) 1.664 ng/mL (0.000-0.055) 1.348 ng/mL (0.000-0.055) Urine Collection Type Unknown Urine Color Yellow Urine Clarity Turbid Urine pH 5.0 (<5.0-8.0) Urine Specific [place] 1.025 (1.000-1.030) Urine Protein 100 mg/dL (NEG-TRACE) Urine Glucose (UA) Negative mg/dL (NEG) Urine Ketones (Stick) Negative mg/dL (NEG) Urine Blood Moderate (NEG) Urine Nitrite Negative (NEG) Urine Bilirubin Small (NEG) Urine Urobilinogen Dipstick 1.0 mg/dL (0.2 mg/dL) Urine Leukocyte Esterase Negative (NEG) Urine RBC 6-10 /HPF (0-2) Urine WBC 1-4 /HPF (0-4) Urine Amorphous Sediment Present /HPF Urine Bacteria 0 /HPF (0-FEW) White Blood Count 8.2 x10^3/uL (4.0-11.0) Red Blood Count 5.89 x10^6/uL (4.30-5.70) Hemoglobin 13.6 g/dL (13.0-17.5) Hematocrit 44.5 % (39.0-53.0) Mean Corpuscular Volume 76 fL (79-100) Mean Corpuscular Hemoglobin 23 pg (25-35) Mean Corpuscular Hemoglobin Concent 31 g/dL (31-37) Red Cell Distribution Width 17.2 % (11.5-14.5) Platelet Count 214 x10^3/uL (140-400) Neutrophils (%) (Auto) 89 % (31-73) Lymphocytes (%) (Auto) 9 % (24-48) Monocytes (%) (Auto) 2 % (0-9) Eosinophils (%) (Auto) 0 % (0-3) Basophils (%) (Auto) 0 % (0-3) Neutrophils # (Auto) 7.3 x10^3/uL (1.8-7.7) Lymphocytes # (Auto) 0.7 x10^3/uL (1.0-4.8) Monocytes # (Auto) 0.2 x10^3/uL (0.0-1.1) Eosinophils # (Auto) 0.0 x10^3/uL (0.0-0.7) Basophils # (Auto) 0.0 x10^3/uL (0.0-0.2) Segmented Neutrophils % 84 % (35-66) Lymphocytes % 10 % (24-48) Monocytes % 6 % (0-10) Nucleated Red Blood Cells 2 Platelet Estimate Adequate (ADEQUATE) Large Platelets Few Polychromasia Slight Basophilic Stippling Present Anisocytosis Slight Sodium Level 142 mmol/L (136-145) Potassium Level 4.7 mmol/L (3.5-5.1) Chloride Level 106 mmol/L (98-107) Carbon Dioxide Level 28 mmol/L (21-32) Anion Gap 8 (6-14) Blood Urea Nitrogen 45 mg/dL (8-26) Creatinine 2.4 mg/dL (0.7-1.3) Estimated GFR (Cockcroft-Gault) 34.1 BUN/Creatinine Ratio 19 (6-20) Glucose Level 160 mg/dL (70-99) Calcium Level 7.6 mg/dL (8.5-10.1) Total Bilirubin 0.6 mg/dL (0.2-1.0) Aspartate Amino Transf (AST/SGOT) 47 U/L (15-37) Alanine Aminotransferase (ALT/SGPT) 85 U/L (16-63) Alkaline Phosphatase 29 U/L (46-116) Total Protein 5.2 g/dL (6.4-8.2) Albumin 2.6 g/dL (3.4-5.0) Albumin/Globulin Ratio 1.0 (1.0-1.7) Test 05/09/20 08:55 O2 Saturation 93 % (92-99) Arterial Blood pH 7.36 (7.35-7.45) Arterial Blood pH (Temp corrected) 7.37 Arterial Blood pCO2 at Patient Temp 47 mmHg (35-46) Arterial Blood pCO2 (Temp correct) 46 mmHg Arterial Blood pO2 at Patient Temp 72 mmHg (75-108) Arterial Blood pO2 (Temp corrected) 71 mmHg Arterial Blood HCO3 26 mmol/L (21-28) Arterial Blood Base Excess 0 mmol/L (-3-3) FiO2 70% vent Laboratory Tests Test 05/08/20 11:00 05/08/20 14:45 05/08/20 17:20 05/09/20 03:05 Troponin I Quantitative 1.629 ng/mL (0.000-0.055) 1.664 ng/mL (0.000-0.055) 1.348 ng/mL (0.000-0.055) Urine Collection Type Unknown Urine Color Yellow Urine Clarity Turbid Urine pH 5.0 (<5.0-8.0) Urine Specific [place]ilt 1.025 (1.000-1.030) Urine Protein 100 mg/dL (NEG-TRACE) Urine Glucose (UA) Negative mg/dL (NEG) Urine Ketones (Stick) Negative mg/dL (NEG) Urine Blood Moderate (NEG) Urine Nitrite Negative (NEG) Urine Bilirubin Small (NEG) Urine Urobilinogen Dipstick 1.0 mg/dL (0.2 mg/dL) Urine Leukocyte Esterase Negative (NEG) Urine RBC 6-10 /HPF (0-2) Urine WBC 1-4 /HPF (0-4) Urine Amorphous Sediment Present /HPF Urine Bacteria 0 /HPF (0-FEW) White Blood Count 8.2 x10^3/uL (4.0-11.0) Red Blood Count 5.89 x10^6/uL (4.30-5.70) Hemoglobin 13.6 g/dL (13.0-17.5) Hematocrit 44.5 % (39.0-53.0) Mean Corpuscular Volume 76 fL (79-100) Mean Corpuscular Hemoglobin 23 pg (25-35) Mean Corpuscular Hemoglobin Concent 31 g/dL (31-37) Red Cell Distribution Width 17.2 % (11.5-14.5) Platelet Count 214 x10^3/uL (140-400) Neutrophils (%) (Auto) 89 % (31-73) Lymphocytes (%) (Auto) 9 % (24-48) Monocytes (%) (Auto) 2 % (0-9) Eosinophils (%) (Auto) 0 % (0-3) Basophils (%) (Auto) 0 % (0-3) Neutrophils # (Auto) 7.3 x10^3/uL (1.8-7.7) Lymphocytes # (Auto) 0.7 x10^3/uL (1.0-4.8) Monocytes # (Auto) 0.2 x10^3/uL (0.0-1.1) Eosinophils # (Auto) 0.0 x10^3/uL (0.0-0.7) Basophils # (Auto) 0.0 x10^3/uL (0.0-0.2) Segmented Neutrophils % 84 % (35-66) Lymphocytes % 10 % (24-48) Monocytes % 6 % (0-10) Nucleated Red Blood Cells 2 Platelet Estimate Adequate (ADEQUATE) Large Platelets Few Polychromasia Slight Basophilic Stippling Present Anisocytosis Slight Sodium Level 142 mmol/L (136-145) Potassium Level 4.7 mmol/L (3.5-5.1) Chloride Level 106 mmol/L (98-107) Carbon Dioxide Level 28 mmol/L (21-32) Anion Gap 8 (6-14) Blood Urea Nitrogen 45 mg/dL (8-26) Creatinine 2.4 mg/dL (0.7-1.3) Estimated GFR (Cockcroft-Gault) 34.1 BUN/Creatinine Ratio 19 (6-20) Glucose Level 160 mg/dL (70-99) Calcium Level 7.6 mg/dL (8.5-10.1) Total Bilirubin 0.6 mg/dL (0.2-1.0) Aspartate Amino Transf (AST/SGOT) 47 U/L (15-37) Alanine Aminotransferase (ALT/SGPT) 85 U/L (16-63) Alkaline Phosphatase 29 U/L (46-116) Total Protein 5.2 g/dL (6.4-8.2) Albumin 2.6 g/dL (3.4-5.0) Albumin/Globulin Ratio 1.0 (1.0-1.7) Test 05/09/20 08:55 O2 Saturation 93 % (92-99) Arterial Blood pH 7.36 (7.35-7.45) Arterial Blood pH (Temp corrected) 7.37 Arterial Blood pCO2 at Patient Temp 47 mmHg (35-46) Arterial Blood pCO2 (Temp correct) 46 mmHg Arterial Blood pO2 at Patient Temp 72 mmHg (75-108) Arterial Blood pO2 (Temp corrected) 71 mmHg Arterial Blood HCO3 26 mmol/L (21-28) Arterial Blood Base Excess 0 mmol/L (-3-3) FiO2 70% vent Medications Active Scripts Medications Dose Route/Sig Max Daily Dose Days Date Category [amlodipine benazep] Unknown Dose PO 05/08/20 Reported Proventil Hfa (Albuterol Sulfate) 6.7 Gm Hfa.aer.ad 1 Puff INH PRN Q6HRS PRN 05/08/20 Reported Advair 100-50 Diskus (Fluticasone/Salmeterol) 1 Each Disk.w.dev 1 Puff IH BID 05/08/20 Reported Impression . 1. Acute hypoxic and hypercapnic respiratory failure secondary to multifactorial etiologies including suspected chronic obstructive pulmonary disease with acute exacerbation, non-ST myocardial infarction, and cocaine overdose. Possibility of narcotic overdose is also a consideration as the patient reportedly takes pain medication. 2. Underlying chronic obstructive pulmonary disease, clinically suspected. 3. Abnormal chest x-ray with prominent interstitial markings, probably related to mild interstitial edema. 4. Abnormal troponin consistent with non-ST myocardial infarction. 5. Acute kidney injury. 6. Abnormal LFTs. Could be related to hypoperfusion. 7. Urine drug screen positive for cocaine. Plan . 1. Continue with present assist control mode. Follow ABGs and make necessary adjustments. 2. Follow Cardiology recommendations. 3. COVID-19 needs to be ruled out. We will keep him under isolation. 4. IV Solu-Medrol. 5. Lovenox for DVT prophylaxis. 6. Follow troponin levels. 7. Renal consultation and follow their recommendation. 8. We will need to obtain old records from [place]. 9. Discussed with RN/RT 10. Discussed with RN and Cardiology. 11. will repeat cxr to r/o worsening infiltrates We will follow along with you. Critical care time 30 minutes. KARYNA FRASER MD May 09, 2020 09:39
--- NOTE | 2020-05-09 10:15 | PDOC ---
BLAINE KEENE C[employer] PLANNER 05/09/20 1015: CARDIO Progress Notes Date and Time Date of Service 05/09/2020 Time of Evaluation 0930 Vitals Vitals Vital Signs Date Time Temp Pulse Resp B/P (MAP) Pulse Ox O2 Delivery O2 Flow Rate FiO2 05/09/20 09:00 78 20 144/96 (112) 97 Ventilator 05/09/20 08:00 98.0 98.0 05/09/20 00:19 15.0 Weight Weight [ ] Input and Output Intake and Output Intake and Output 05/09/20 07:00 Intake Total 2404.84 ml Output Total 695 ml Balance 1709.84 ml Intake IV Total 2404.84 ml Output Urine Total 695 ml Laboratory Labs Laboratory Tests Test 05/08/20 11:00 05/08/20 14:45 05/08/20 17:20 05/09/20 03:05 Troponin I Quantitative 1.629 ng/mL (0.000-0.055) 1.664 ng/mL (0.000-0.055) 1.348 ng/mL (0.000-0.055) Urine Collection Type Unknown Urine Color Yellow Urine Clarity Turbid Urine pH 5.0 (<5.0-8.0) Urine Specific [place] 1.025 (1.000-1.030) Urine Protein 100 mg/dL (NEG-TRACE) Urine Glucose (UA) Negative mg/dL (NEG) Urine Ketones (Stick) Negative mg/dL (NEG) Urine Blood Moderate (NEG) Urine Nitrite Negative (NEG) Urine Bilirubin Small (NEG) Urine Urobilinogen Dipstick 1.0 mg/dL (0.2 mg/dL) Urine Leukocyte Esterase Negative (NEG) Urine RBC 6-10 /HPF (0-2) Urine WBC 1-4 /HPF (0-4) Urine Amorphous Sediment Present /HPF Urine Bacteria 0 /HPF (0-FEW) White Blood Count 8.2 x10^3/uL (4.0-11.0) Red Blood Count 5.89 x10^6/uL (4.30-5.70) Hemoglobin 13.6 g/dL (13.0-17.5) Hematocrit 44.5 % (39.0-53.0) Mean Corpuscular Volume 76 fL (79-100) Mean Corpuscular Hemoglobin 23 pg (25-35) Mean Corpuscular Hemoglobin Concent 31 g/dL (31-37) Red Cell Distribution Width 17.2 % (11.5-14.5) Platelet Count 214 x10^3/uL (140-400) Neutrophils (%) (Auto) 89 % (31-73) Lymphocytes (%) (Auto) 9 % (24-48) Monocytes (%) (Auto) 2 % (0-9) Eosinophils (%) (Auto) 0 % (0-3) Basophils (%) (Auto) 0 % (0-3) Neutrophils # (Auto) 7.3 x10^3/uL (1.8-7.7) Lymphocytes # (Auto) 0.7 x10^3/uL (1.0-4.8) Monocytes # (Auto) 0.2 x10^3/uL (0.0-1.1) Eosinophils # (Auto) 0.0 x10^3/uL (0.0-0.7) Basophils # (Auto) 0.0 x10^3/uL (0.0-0.2) Segmented Neutrophils % 84 % (35-66) Lymphocytes % 10 % (24-48) Monocytes % 6 % (0-10) Nucleated Red Blood Cells 2 Platelet Estimate Adequate (ADEQUATE) Large Platelets Few Polychromasia Slight Basophilic Stippling Present Anisocytosis Slight Sodium Level 142 mmol/L (136-145) Potassium Level 4.7 mmol/L (3.5-5.1) Chloride Level 106 mmol/L (98-107) Carbon Dioxide Level 28 mmol/L (21-32) Anion Gap 8 (6-14) Blood Urea Nitrogen 45 mg/dL (8-26) Creatinine 2.4 mg/dL (0.7-1.3) Estimated GFR (Cockcroft-Gault) 34.1 BUN/Creatinine Ratio 19 (6-20) Glucose Level 160 mg/dL (70-99) Calcium Level 7.6 mg/dL (8.5-10.1) Total Bilirubin 0.6 mg/dL (0.2-1.0) Aspartate Amino Transf (AST/SGOT) 47 U/L (15-37) Alanine Aminotransferase (ALT/SGPT) 85 U/L (16-63) Alkaline Phosphatase 29 U/L (46-116) Total Protein 5.2 g/dL (6.4-8.2) Albumin 2.6 g/dL (3.4-5.0) Albumin/Globulin Ratio 1.0 (1.0-1.7) Test 05/09/20 08:55 O2 Saturation 93 % (92-99) Arterial Blood pH 7.36 (7.35-7.45) Arterial Blood pH (Temp corrected) 7.37 Arterial Blood pCO2 at Patient Temp 47 mmHg (35-46) Arterial Blood pCO2 (Temp correct) 46 mmHg Arterial Blood pO2 at Patient Temp 72 mmHg (75-108) Arterial Blood pO2 (Temp corrected) 71 mmHg Arterial Blood HCO3 26 mmol/L (21-28) Arterial Blood Base Excess 0 mmol/L (-3-3) FiO2 70% vent Microbiology Micro Microbiology 05/08/20 Blood Culture - Preliminary, Resulted NO GROWTH AFTER 1 DAY Physical Exam Chest: Symmetric LUNGS: Other (intubated) Heart: RRR Abdomen: Other (obese) Neurology: other (sedated) Assessment Assessment 1. Acute on chronic respiratory failure with AECOPD and mild acute CHF. s/p intubation. COVID pending. 2. NSTEMI; highest trop 1.6.likely demand mediated with above. No significant arrhythmias 3. EVY likely on CKD: unknown baseline 4. Mild transaminitis 5. Leukocytosis 6. DM2: A1C 6.7. NEW? per PCP 7. Substance abuse; UDS + cocaine 8. Probable CONNER Recommendations 1. ASA. Avoid nephrotoxins. Will need nephrology follow up. May resume home norvasc per BP trend. 2. Echo to assess LV systolic function pending negative COVID testing 3. Will review records from [facility] in [place], [place]. when available 4. Consider further ischemic evaluation pending course of hospitalization 5. Follow pulm recs 6. Supportive care. Justicifation of Admission Dx: Justifications for Admission: Justification of Admission Dx: Yes CHF: Hemodynamic Instability Respiratory Failure: Mechanical Ventilation Acute COPD Exacerbation: Acute COPD Exacerbation Altered Mental Status: Altered Mental Status TINY MARSHALL MD 05/09/20 1656: CARDIO Progress Notes Plan Plan Patient seen and examined. Agree with above nurse practitioner note. No acute cardiovascular events. Supportive care. Await extubation. Consider outpatient ischemic testing. Troponin elevation likely secondary to respiratory failure, cocaine abuse. BLAINE KEENE APRN May 09, 2020 10:15 TINY MARSHALL MD May 09, 2020 16:56
--- NOTE | 2020-05-09 10:52 | PDOC ---
PROGRESS NOTES History of Present Illness History of Present Illness VTE Prophylaxis Ordered VTE Prophylaxis Devices: Yes VTE Pharmacological Prophylaxi: Yes Assessment/Plan Assessment/Plan Impression: Respiratory failure COPD ACUTE HYPOXIC RESP FAILURE Suspected COVID-19 virus infection NSTEMI (non-ST elevated myocardial infarction) COCAINE ABUSE Morbid obesity EVY Echogenic appearing bilateral kidneys probably medical renal disease. No evidence of hydronephrosis. Echo to assess LV systolic function pending negative COVID testing Will review records from [facility] in [place], [place]. when available Consider further ischemic evaluation pending course of hospitalization ADMITTED ICU BED PULM CONSULT AC mode, 70%FIO2 CARDIOLOGY CONSULT VENT SUPPORT dvt prophylaxis GI PROPHYLAXIS ECHO TAPERING IV STEROIDS covid 19 screen Nephrology consult cpk Echo to assess LV systolic function pending negative COVID testing review records from [facility] in [place], [place]. when available further ischemic evaluation pending course of hospitalization 37 min cc time Justicifation of Admission Dx: Justicifation of Admission Dx: Justifications for Admission: Justification of Admission Dx: Yes CHF: Hemodynamic Instability Respiratory Failure: Mechanical Ventilation Acute COPD Exacerbation: Acute COPD Exacerbation Altered Mental Status: Altered Mental Status Vitals Vitals Vital Signs Date Time Temp Pulse Resp B/P (MAP) Pulse Ox O2 Delivery O2 Flow Rate FiO2 05/09/20 10:00 77 20 153/113 (126) 97 Ventilator 05/09/20 08:00 98.0 98.0 05/09/20 00:19 15.0 Physical Exam General: Other (sedated ) Heart: Regular rate, Other Abdomen: Soft, No tenderness Extremities: Other (1+ bilateral LE edema ) Skin: No significant lesion Labs LABS Examination: Ultrasound kidneys HISTORY: History of acute renal insufficiency COMPARISON: None available FINDINGS: The right kidney measures 11.8 x 5.7 x 5.3 cm . The left kidney measures 13.5 x 6.2 x 5.2 cm. Echogenic appearing bilateral kidneys. No evidence of hydronephrosis. Frances catheter identified in the urinary bladder. IMPRESSION: Echogenic appearing bilateral kidneys probably medical renal disease. No evidence of hydronephrosis. Electronically signed by: Alex Yanes MD (05/09/2020 5:30 AM) [id number] DICTATED and SIGNED BY: ALEX YANES MD DATE: 05/09/20 0530 Laboratory Tests Test 05/08/20 11:00 05/08/20 14:45 05/08/20 17:20 05/09/20 03:05 Troponin I Quantitative 1.629 ng/mL (0.000-0.055) 1.664 ng/mL (0.000-0.055) 1.348 ng/mL (0.000-0.055) Urine Collection Type Unknown Urine Color Yellow Urine Clarity Turbid Urine pH 5.0 (<5.0-8.0) Urine Specific [place] 1.025 (1.000-1.030) Urine Protein 100 mg/dL (NEG-TRACE) Urine Glucose (UA) Negative mg/dL (NEG) Urine Ketones (Stick) Negative mg/dL (NEG) Urine Blood Moderate (NEG) Urine Nitrite Negative (NEG) Urine Bilirubin Small (NEG) Urine Urobilinogen Dipstick 1.0 mg/dL (0.2 mg/dL) Urine Leukocyte Esterase Negative (NEG) Urine RBC 6-10 /HPF (0-2) Urine WBC 1-4 /HPF (0-4) Urine Amorphous Sediment Present /HPF Urine Bacteria 0 /HPF (0-FEW) White Blood Count 8.2 x10^3/uL (4.0-11.0) Red Blood Count 5.89 x10^6/uL (4.30-5.70) Hemoglobin 13.6 g/dL (13.0-17.5) Hematocrit 44.5 % (39.0-53.0) Mean Corpuscular Volume 76 fL (79-100) Mean Corpuscular Hemoglobin 23 pg (25-35) Mean Corpuscular Hemoglobin Concent 31 g/dL (31-37) Red Cell Distribution Width 17.2 % (11.5-14.5) Platelet Count 214 x10^3/uL (140-400) Neutrophils (%) (Auto) 89 % (31-73) Lymphocytes (%) (Auto) 9 % (24-48) Monocytes (%) (Auto) 2 % (0-9) Eosinophils (%) (Auto) 0 % (0-3) Basophils (%) (Auto) 0 % (0-3) Neutrophils # (Auto) 7.3 x10^3/uL (1.8-7.7) Lymphocytes # (Auto) 0.7 x10^3/uL (1.0-4.8) Monocytes # (Auto) 0.2 x10^3/uL (0.0-1.1) Eosinophils # (Auto) 0.0 x10^3/uL (0.0-0.7) Basophils # (Auto) 0.0 x10^3/uL (0.0-0.2) Segmented Neutrophils % 84 % (35-66) Lymphocytes % 10 % (24-48) Monocytes % 6 % (0-10) Nucleated Red Blood Cells 2 Platelet Estimate Adequate (ADEQUATE) Large Platelets Few Polychromasia Slight Basophilic Stippling Present Anisocytosis Slight Sodium Level 142 mmol/L (136-145) Potassium Level 4.7 mmol/L (3.5-5.1) Chloride Level 106 mmol/L (98-107) Carbon Dioxide Level 28 mmol/L (21-32) Anion Gap 8 (6-14) Blood Urea Nitrogen 45 mg/dL (8-26) Creatinine 2.4 mg/dL (0.7-1.3) Estimated GFR (Cockcroft-Gault) 34.1 BUN/Creatinine Ratio 19 (6-20) Glucose Level 160 mg/dL (70-99) Calcium Level 7.6 mg/dL (8.5-10.1) Total Bilirubin 0.6 mg/dL (0.2-1.0) Aspartate Amino Transf (AST/SGOT) 47 U/L (15-37) Alanine Aminotransferase (ALT/SGPT) 85 U/L (16-63) Alkaline Phosphatase 29 U/L (46-116) Total Protein 5.2 g/dL (6.4-8.2) Albumin 2.6 g/dL (3.4-5.0) Albumin/Globulin Ratio 1.0 (1.0-1.7) Test 05/09/20 08:55 O2 Saturation 93 % (92-99) Arterial Blood pH 7.36 (7.35-7.45) Arterial Blood pH (Temp corrected) 7.37 Arterial Blood pCO2 at Patient Temp 47 mmHg (35-46) Arterial Blood pCO2 (Temp correct) 46 mmHg Arterial Blood pO2 at Patient Temp 72 mmHg (75-108) Arterial Blood pO2 (Temp corrected) 71 mmHg Arterial Blood HCO3 26 mmol/L (21-28) Arterial Blood Base Excess 0 mmol/L (-3-3) FiO2 70% vent Assessment and Plan Assessmemt and Plan Problems Medical Problems: (1) Cocaine abuse Status: Acute (2) NSTEMI (non-ST elevated myocardial infarction) Status: Acute (3) Respiratory failure Status: Acute (4) Suspected COVID-19 virus infection Status: Acute Comment Review of Relevant I have reviewed the following items jeffrey (where applicable) has been applied. Labs Laboratory Tests Test 05/08/20 07:17 05/08/20 07:20 05/08/20 08:45 05/08/20 09:20 Glucose (Fingerstick) 231 mg/dL (70-99) White Blood Count 16.0 x10^3/uL (4.0-11.0) Red Blood Count 6.18 x10^6/uL (4.30-5.70) Hemoglobin 14.6 g/dL (13.0-17.5) Hematocrit 48.3 % (39.0-53.0) Mean Corpuscular Volume 78 fL (79-100) Mean Corpuscular Hemoglobin 24 pg (25-35) Mean Corpuscular Hemoglobin Concent 30 g/dL (31-37) Red Cell Distribution Width 17.5 % (11.5-14.5) Platelet Count 283 x10^3/uL (140-400) Neutrophils (%) (Auto) 49 % (31-73) Lymphocytes (%) (Auto) 44 % (24-48) Monocytes (%) (Auto) 6 % (0-9) Eosinophils (%) (Auto) 1 % (0-3) Basophils (%) (Auto) 0 % (0-3) Neutrophils # (Auto) 7.9 x10^3/uL (1.8-7.7) Lymphocytes # (Auto) 6.9 x10^3/uL (1.0-4.8) Monocytes # (Auto) 1.0 x10^3/uL (0.0-1.1) Eosinophils # (Auto) 0.1 x10^3/uL (0.0-0.7) Basophils # (Auto) 0.0 x10^3/uL (0.0-0.2) Prothrombin Time 15.2 SEC (11.7-14.0) Prothromb Time International Ratio 1.2 (0.8-1.1) Sodium Level 141 mmol/L (136-145) Potassium Level 4.5 mmol/L (3.5-5.1) Chloride Level 103 mmol/L (98-107) Carbon Dioxide Level 29 mmol/L (21-32) Anion Gap 9 (6-14) Blood Urea Nitrogen 33 mg/dL (8-26) Creatinine 2.2 mg/dL (0.7-1.3) Estimated GFR (Cockcroft-Gault) 31.1 BUN/Creatinine Ratio 15 (6-20) Glucose Level 237 mg/dL (70-99) Hemoglobin A1c 6.7 % (4.8-5.6) Calcium Level 7.9 mg/dL (8.5-10.1) Total Bilirubin 0.5 mg/dL (0.2-1.0) Aspartate Amino Transf (AST/SGOT) 64 U/L (15-37) Alanine Aminotransferase (ALT/SGPT) 93 U/L (16-63) Alkaline Phosphatase 37 U/L (46-116) Troponin I Quantitative 1.123 ng/mL (0.000-0.055) MR-Csq-[id number]-Type Natriuretic Peptide 5279 pg/mL (0-124) Total Protein 6.1 g/dL (6.4-8.2) Albumin 3.1 g/dL (3.4-5.0) Albumin/Globulin Ratio 1.0 (1.0-1.7) Triglycerides Level 119 mg/dL (0-150) Cholesterol Level 109 mg/dL (0-200) LDL Cholesterol, Calculated 52 mg/dL (0-100) VLDL Cholesterol, Calculated 24 mg/dL (0-40) Non-HDL Cholesterol Calculated 76 mg/dL (0-129) HDL Cholesterol 33 mg/dL (40-60) Cholesterol/HDL Ratio 3.3 Thyroid Stimulating Hormone (TSH) 5.769 uIU/mL (0.358-3.74) O2 Saturation 99 % (92-99) Arterial Blood pH 7.28 (7.35-7.45) Arterial Blood pCO2 at Patient Temp 59 mmHg (35-46) Arterial Blood pO2 at Patient Temp 167 mmHg (75-108) Arterial Blood HCO3 27 mmol/L (21-28) Arterial Blood Base Excess -1 mmol/L (-3-3) Oxyhemoglobin 94.7 % Methemoglobin 0.5 % (0.0-1.9) Carbon Monoxide, Quantitative 3.4 % (0.0-1.9) FiO2 100 Urine Collection Type Unknown Urine Color [place] Urine Clarity Turbid Urine pH 5.5 (<5.0-8.0) Urine Specific [place] 1.025 (1.000-1.030) Urine Protein >=300 mg/dL (NEG-TRACE) Urine Glucose (UA) 100 mg/dL (NEG) Urine Ketones (Stick) Negative mg/dL (NEG) Urine Blood Large (NEG) Urine Nitrite Negative (NEG) Urine Bilirubin Negative (NEG) Urine Urobilinogen Dipstick 1.0 mg/dL (0.2 mg/dL) Urine Leukocyte Esterase Negative (NEG) Urine RBC 6-10 /HPF (0-2) Urine WBC 1-4 /HPF (0-4) Urine Squamous Epithelial Cells Few /LPF Urine Amorphous Sediment Present /HPF Urine Bacteria 0 /HPF (0-FEW) Urine Sperm Present /HPF Urine Opiates Screen Neg (NEG) Urine Methadone Screen Neg (NEG) Urine Barbiturates Neg (NEG) Urine Phencyclidine Screen Neg (NEG) Urine Amphetamine/Methamphetamine Neg (NEG) Urine Benzodiazepines Screen Pos (NEG) Urine Cocaine Screen Pos (NEG) Urine Cannabinoids Screen Neg (NEG) Urine Ethyl Alcohol Neg (NEG) Test 05/08/20 11:00 05/08/20 14:45 05/08/20 17:20 05/09/20 03:05 Troponin I Quantitative 1.629 ng/mL (0.000-0.055) 1.664 ng/mL (0.000-0.055) 1.348 ng/mL (0.000-0.055) Urine Collection Type Unknown Urine Color Yellow Urine Clarity Turbid Urine pH 5.0 (<5.0-8.0) Urine Specific [place] 1.025 (1.000-1.030) Urine Protein 100 mg/dL (NEG-TRACE) Urine Glucose (UA) Negative mg/dL (NEG) Urine Ketones (Stick) Negative mg/dL (NEG) Urine Blood Moderate (NEG) Urine Nitrite Negative (NEG) Urine Bilirubin Small (NEG) Urine Urobilinogen Dipstick 1.0 mg/dL (0.2 mg/dL) Urine Leukocyte Esterase Negative (NEG) Urine RBC 6-10 /HPF (0-2) Urine WBC 1-4 /HPF (0-4) Urine Amorphous Sediment Present /HPF Urine Bacteria 0 /HPF (0-FEW) White Blood Count 8.2 x10^3/uL (4.0-11.0) Red Blood Count 5.89 x10^6/uL (4.30-5.70) Hemoglobin 13.6 g/dL (13.0-17.5) Hematocrit 44.5 % (39.0-53.0) Mean Corpuscular Volume 76 fL (79-100) Mean Corpuscular Hemoglobin 23 pg (25-35) Mean Corpuscular Hemoglobin Concent 31 g/dL (31-37) Red Cell Distribution Width 17.2 % (11.5-14.5) Platelet Count 214 x10^3/uL (140-400) Neutrophils (%) (Auto) 89 % (31-73) Lymphocytes (%) (Auto) 9 % (24-48) Monocytes (%) (Auto) 2 % (0-9) Eosinophils (%) (Auto) 0 % (0-3) Basophils (%) (Auto) 0 % (0-3) Neutrophils # (Auto) 7.3 x10^3/uL (1.8-7.7) Lymphocytes # (Auto) 0.7 x10^3/uL (1.0-4.8) Monocytes # (Auto) 0.2 x10^3/uL (0.0-1.1) Eosinophils # (Auto) 0.0 x10^3/uL (0.0-0.7) Basophils # (Auto) 0.0 x10^3/uL (0.0-0.2) Segmented Neutrophils % 84 % (35-66) Lymphocytes % 10 % (24-48) Monocytes % 6 % (0-10) Nucleated Red Blood Cells 2 Platelet Estimate Adequate (ADEQUATE) Large Platelets Few Polychromasia Slight Basophilic Stippling Present Anisocytosis Slight Sodium Level 142 mmol/L (136-145) Potassium Level 4.7 mmol/L (3.5-5.1) Chloride Level 106 mmol/L (98-107) Carbon Dioxide Level 28 mmol/L (21-32) Anion Gap 8 (6-14) Blood Urea Nitrogen 45 mg/dL (8-26) Creatinine 2.4 mg/dL (0.7-1.3) Estimated GFR (Cockcroft-Gault) 34.1 BUN/Creatinine Ratio 19 (6-20) Glucose Level 160 mg/dL (70-99) Calcium Level 7.6 mg/dL (8.5-10.1) Total Bilirubin 0.6 mg/dL (0.2-1.0) Aspartate Amino Transf (AST/SGOT) 47 U/L (15-37) Alanine Aminotransferase (ALT/SGPT) 85 U/L (16-63) Alkaline Phosphatase 29 U/L (46-116) Total Protein 5.2 g/dL (6.4-8.2) Albumin 2.6 g/dL (3.4-5.0) Albumin/Globulin Ratio 1.0 (1.0-1.7) Test 05/09/20 08:55 O2 Saturation 93 % (92-99) Arterial Blood pH 7.36 (7.35-7.45) Arterial Blood pH (Temp corrected) 7.37 Arterial Blood pCO2 at Patient Temp 47 mmHg (35-46) Arterial Blood pCO2 (Temp correct) 46 mmHg Arterial Blood pO2 at Patient Temp 72 mmHg (75-108) Arterial Blood pO2 (Temp corrected) 71 mmHg Arterial Blood HCO3 26 mmol/L (21-28) Arterial Blood Base Excess 0 mmol/L (-3-3) FiO2 70% vent Laboratory Tests Test 05/08/20 11:00 05/08/20 14:45 05/08/20 17:20 05/09/20 03:05 Troponin I Quantitative 1.629 ng/mL (0.000-0.055) 1.664 ng/mL (0.000-0.055) 1.348 ng/mL (0.000-0.055) Urine Collection Type Unknown Urine Color Yellow Urine Clarity Turbid Urine pH 5.0 (<5.0-8.0) Urine Specific [place] 1.025 (1.000-1.030) Urine Protein 100 mg/dL (NEG-TRACE) Urine Glucose (UA) Negative mg/dL (NEG) Urine Ketones (Stick) Negative mg/dL (NEG) Urine Blood Moderate (NEG) Urine Nitrite Negative (NEG) Urine Bilirubin Small (NEG) Urine Urobilinogen Dipstick 1.0 mg/dL (0.2 mg/dL) Urine Leukocyte Esterase Negative (NEG) Urine RBC 6-10 /HPF (0-2) Urine WBC 1-4 /HPF (0-4) Urine Amorphous Sediment Present /HPF Urine Bacteria 0 /HPF (0-FEW) White Blood Count 8.2 x10^3/uL (4.0-11.0) Red Blood Count 5.89 x10^6/uL (4.30-5.70) Hemoglobin 13.6 g/dL (13.0-17.5) Hematocrit 44.5 % (39.0-53.0) Mean Corpuscular Volume 76 fL (79-100) Mean Corpuscular Hemoglobin 23 pg (25-35) Mean Corpuscular Hemoglobin Concent 31 g/dL (31-37) Red Cell Distribution Width 17.2 % (11.5-14.5) Platelet Count 214 x10^3/uL (140-400) Neutrophils (%) (Auto) 89 % (31-73) Lymphocytes (%) (Auto) 9 % (24-48) Monocytes (%) (Auto) 2 % (0-9) Eosinophils (%) (Auto) 0 % (0-3) Basophils (%) (Auto) 0 % (0-3) Neutrophils # (Auto) 7.3 x10^3/uL (1.8-7.7) Lymphocytes # (Auto) 0.7 x10^3/uL (1.0-4.8) Monocytes # (Auto) 0.2 x10^3/uL (0.0-1.1) Eosinophils # (Auto) 0.0 x10^3/uL (0.0-0.7) Basophils # (Auto) 0.0 x10^3/uL (0.0-0.2) Segmented Neutrophils % 84 % (35-66) Lymphocytes % 10 % (24-48) Monocytes % 6 % (0-10) Nucleated Red Blood Cells 2 Platelet Estimate Adequate (ADEQUATE) Large Platelets Few Polychromasia Slight Basophilic Stippling Present Anisocytosis Slight Sodium Level 142 mmol/L (136-145) Potassium Level 4.7 mmol/L (3.5-5.1) Chloride Level 106 mmol/L (98-107) Carbon Dioxide Level 28 mmol/L (21-32) Anion Gap 8 (6-14) Blood Urea Nitrogen 45 mg/dL (8-26) Creatinine 2.4 mg/dL (0.7-1.3) Estimated GFR (Cockcroft-Gault) 34.1 BUN/Creatinine Ratio 19 (6-20) Glucose Level 160 mg/dL (70-99) Calcium Level 7.6 mg/dL (8.5-10.1) Total Bilirubin 0.6 mg/dL (0.2-1.0) Aspartate Amino Transf (AST/SGOT) 47 U/L (15-37) Alanine Aminotransferase (ALT/SGPT) 85 U/L (16-63) Alkaline Phosphatase 29 U/L (46-116) Total Protein 5.2 g/dL (6.4-8.2) Albumin 2.6 g/dL (3.4-5.0) Albumin/Globulin Ratio 1.0 (1.0-1.7) Test 05/09/20 08:55 O2 Saturation 93 % (92-99) Arterial Blood pH 7.36 (7.35-7.45) Arterial Blood pH (Temp corrected) 7.37 Arterial Blood pCO2 at Patient Temp 47 mmHg (35-46) Arterial Blood pCO2 (Temp correct) 46 mmHg Arterial Blood pO2 at Patient Temp 72 mmHg (75-108) Arterial Blood pO2 (Temp corrected) 71 mmHg Arterial Blood HCO3 26 mmol/L (21-28) Arterial Blood Base Excess 0 mmol/L (-3-3) FiO2 70% vent Microbiology 05/08/20 Blood Culture - Preliminary, Resulted NO GROWTH AFTER 1 DAY Medications Current Medications Propofol 50 ml @ As Directed STK-MED ONCE IV ; Start 05/08/20 at 07:33; Stop 05/08/20 at 07:33; Status DC Propofol 100 ml @ 0 mls/hr CONT PRN IV SEE PROTOCOL Last administered on 05/08/20at 07:35; Start 05/08/20 at 07:45 Fentanyl Citrate (Fentanyl 2ml Vial) 50 mcg PRN Q1HR PRN IV SEE COMMENTS Last administered on 05/08/20at 12:44; Start 05/08/20 at 07:45 Chlorhexidine Gluconate (Peridex) 15 ml BID MM Last administered on 05/09/20at 08:22; Start 05/08/20 at 09:00 Etomidate (Amidate) 20 mg 1X ONCE IV Last administered on 05/08/20at 07:30; Start 05/08/20 at 07:45; Stop 05/08/20 at 09:04; Status DC Succinylcholine Chloride (Anectine) 100 mg 1X ONCE IV Last administered on 05/08/20at 07:31; Start 05/08/20 at 07:45; Stop 05/08/20 at 09:04; Status DC Albuterol/ Ipratropium (Duoneb) 6 ml 1X ONCE NEB ; Start 05/08/20 at 07:45; Stop 05/08/20 at 09:04; Status DC Methylprednisolone Sodium Succinate (SOLU-Medrol 125MG VIAL) 125 mg 1X ONCE IV Last administered on 05/08/20at 08:31; Start 05/08/20 at 07:45; Stop 05/08/20 at 09:04; Status DC Albuterol Sulfate (Ventolin Neb Soln) 2.5 mg 1X ONCE NEB ; Start 05/08/20 at 07:45; Stop 05/08/20 at 08:56; Status DC Ceftriaxone Sodium (Rocephin) 1 gm 1X ONCE IVP Last administered on 05/08/20at 08:31; Start 05/08/20 at 07:45; Stop 05/08/20 at 09:04; Status DC Propofol (Diprivan) 40 mg 1X ONCE IV ; Start 05/08/20 at 08:00; Stop 05/08/20 at 09:04; Status DC Fentanyl Citrate 30 ml @ 0 mls/hr CONT PRN IV SEE PROTOCOL Last administered on 05/08/20at 23:49; Start 05/08/20 at 08:15 Midazolam HCl 100 ml @ 0 mls/hr CONT PRN IV SEE PROTOCOL Last administered on 05/09/20at 03:38; Start 05/08/20 at 08:15 Sodium Chloride 1,000 ml @ 1,000 mls/hr 1X ONCE IV Last administered on 05/08/20at 08:47; Start 05/08/20 at 08:30; Stop 05/08/20 at 09:29; Status DC Midazolam HCl (Versed) 5 mg 1X ONCE IV Last administered on 05/08/20at 08:33; Start 05/08/20 at 08:30; Stop 05/08/20 at 09:04; Status DC Ondansetron HCl (Zofran) 4 mg PRN Q8HRS PRN IV NAUSEA/VOMITING; Start 05/08/20 at 08:45; Stop 05/09/20 at 08:44; Status DC Aspirin (Aspirin Rectal Supp) 300 mg 1X ONCE [place] Last administered on 05/08/20at 10:00; Start 05/08/20 at 08:45; Stop 05/08/20 at 09:04; Status DC Sodium Chloride (Normal Saline Flush) 3 ml QSHIFT PRN IV AFTER MEDS AND BLOOD DRAWS; Start 05/08/20 at 11:30; Stop 05/08/20 at 18:55; Status DC Sodium Chloride 1,000 ml @ 60 mls/hr [id number] IV Last administered on 05/08/20at 12:53; Start 05/08/20 at 11:24; Stop 05/08/20 at 18:55; Status DC Ondansetron HCl (Zofran) 4 mg PRN Q4HRS PRN IV NAUSEA/VOMITING; Start 05/08/20 at 11:30; Stop 05/08/20 at 18:55; Status DC Acetaminophen (Tylenol Supp) 650 mg PRN Q4HRS PRN [place] TEMP OVER 100.4F OR MILD PAIN; Start 05/08/20 at 11:30; Stop 05/08/20 at 18:47; Status DC Sodium Monofluorophosphate (Fleet Adult) 133 ml PRN DAILY PRN [place] CONSTIPATION; Start 05/08/20 at 11:30; Stop 05/08/20 at 18:55; Status DC Albuterol/ Ipratropium (Duoneb) 3 ml Q4H NEB ; Start 05/08/20 at 11:30; Stop 05/08/20 at 15:37; Status DC Enoxaparin Sodium (Lovenox 40mg Syringe) 40 mg DAILY SQ ; Start 05/09/20 at 09:00; Stop 05/08/20 at 18:54; Status DC Pantoprazole Sodium (PROTONIX VIAL for IV PUSH) 40 mg DAILYAC IVP Last administered on 05/09/20at 08:22; Start 05/08/20 at 11:30 Etomidate (Amidate) 40 mg 1X ONCE IV Last administered on 05/08/20at 07:57; Start 05/08/20 at 07:55; Stop 05/08/20 at 12:05; Status DC Methylprednisolone Sodium Succinate (SOLU-Medrol 125MG VIAL) 60 mg Q8HRS IV Last administered on 05/09/20at 06:10; Start 05/08/20 at 14:00 Midazolam HCl (Versed) 5 mg PRN Q15MIN PRN IV SEDATION Last administered on 05/08/20at 12:32; Start 05/08/20 at 08:00 Enoxaparin Sodium (Lovenox Per Pharmacy Prophylaxis Dosing) 1 each PRN DAILY PRN MC SEE COMMENTS; Start 05/08/20 at 16:00 Sodium Chloride (Normal Saline Flush) 3 ml QSHIFT PRN IV AFTER MEDS AND BLOOD DRAWS; Start 05/08/20 at 16:15 Sodium Chloride 1,000 ml @ 80 mls/hr [id number] IV Last administered on 05/09/20at 02:32; Start 05/08/20 at 16:01 Ondansetron HCl (Zofran) 4 mg PRN Q4HRS PRN IV NAUSEA/VOMITING; Start 05/08/20 at 16:15 Acetaminophen (Tylenol Supp) 650 mg PRN Q4HRS PRN [place] TEMP OVER 100.4F OR MILD PAIN; Start 05/08/20 at 16:15 Sodium Monofluorophosphate (Fleet Adult) 133 ml PRN DAILY PRN [place] CONSTIPATION; Start 05/08/20 at 16:15 Albuterol/ Ipratropium (Duoneb) 3 ml Q4H NEB ; Start 05/08/20 at 16:15; Stop 05/08/20 at 18:45; Status DC Enoxaparin Sodium (Lovenox 40mg Syringe) 40 mg Q24H SQ Last administered on 05/08/20at 17:17; Start 05/08/20 at 17:00 Ceftriaxone Sodium (Rocephin) 1 gm Q24H IVP Last administered on 05/09/20at 08:22; Start 05/09/20 at 08:00 Aspirin (Aspirin Chewable) 81 mg DAILYWBKFT PO ; Start 05/08/20 at 17:30; Stop 05/08/20 at 17:27; Status DC Aspirin (Aspirin Chewable) 81 mg DAILYWBKFT PO Last administered on 05/09/20at 08:22; Start 05/09/20 at 08:00 Albuterol Sulfate (Ventolin Neb Soln) 2.5 mg PRN Q4HRS PRN NEB SHORTNESS OF BREATH; Start 05/08/20 at 19:00 Active Scripts Active Reported [amlodipine benazep] Unknown Dose PO Proventil Hfa (Albuterol Sulfate) 6.7 Gm Hfa.aer.ad 1 Puff INH PRN Q6HRS PRN Advair 100-50 Diskus (Fluticasone/Salmeterol) 1 Each Disk.w.dev 1 Puff IH BID Vitals/I & O Vital Sign - Last 24 Hours 05/08/20 05/08/20 05/08/20 05/08/20 11:00 11:30 12:00 12:20 Pulse 80 Resp 20 20 20 B/P (MAP) 143/102 (116) 140/98 (112) 149/104 (119) Pulse Ox 100 100 100 100 O2 Delivery Ventilator Ventilator Ventilator Ventilator 05/08/20 05/08/20 05/08/20 05/08/20 12:30 13:00 13:00 13:30 Temp 97.1 97.1 Pulse 82 78 78 Resp 20 20 20 B/P (MAP) 152/103 (119) 131/86 (101) 134/89 (104) Pulse Ox 100 100 100 O2 Delivery Ventilator Ventilator Ventilator 05/08/20 05/08/20 05/08/20 05/08/20 13:45 14:00 14:00 14:03 Temp 98.0 98.0 Pulse 80 82 Resp 20 20 20 B/P (MAP) 140/91 (107) 137/95 (109) Pulse Ox 97 97 99 O2 Delivery Ventilator Ventilator Mechanical Ventilator Ventilator 05/08/20 05/08/20 05/08/20 05/08/20 14:15 14:30 14:33 15:00 Pulse 82 80 80 Resp 20 20 20 B/P (MAP) 127/87 (100) 127/84 (98) 121/70 (87) Pulse Ox 97 98 98 O2 Delivery Ventilator Ventilator Ventilator Ventilator 05/08/20 05/08/20 05/08/20 05/08/20 16:00 16:00 16:02 17:00 Pulse 80 80 Resp 20 20 B/P (MAP) 119/79 (92) 120/73 (89) Pulse Ox 99 99 99 O2 Delivery Mechanical Ventilator Ventilator Ventilator Ventilator 05/08/20 05/08/20 05/08/20 05/08/20 18:00 18:19 18:45 19:39 Pulse 80 80 Resp 19 21 B/P (MAP) 140/84 (102) 134/87 (103) Pulse Ox 99 98 99 98 O2 Delivery Ventilator Ventilator Ventilator Ventilator 05/08/20 05/08/20 05/08/20 05/08/20 20:00 20:00 21:00 22:00 Temp 98.8 98.8 Pulse 81 81 80 Resp 20 19 20 B/P (MAP) 124/84 (97) 147/103 (118) 148/95 (112) Pulse Ox 98 97 97 O2 Delivery Mechanical Ventilator Ventilator Ventilator Ventilator 05/08/20 05/08/20 05/08/20 05/09/20 23:00 23:25 23:49 00:00 Pulse 82 Resp 19 18 B/P (MAP) 150/91 (110) Pulse Ox 96 96 96 O2 Delivery Ventilator Ventilator Mechanical Ventilator O2 Flow Rate 15.0 05/09/20 05/09/20 05/09/20 05/09/20 00:00 00:19 01:00 02:00 Temp 98.2 98.2 Pulse 82 83 84 Resp 20 20 19 19 B/P (MAP) 154/96 (115) 153/79 (103) 153/94 (113) Pulse Ox 96 96 96 96 O2 Delivery Ventilator Ventilator Ventilator O2 Flow Rate 15.0 05/09/20 05/09/20 05/09/20 05/09/20 03:05 03:21 04:00 04:45 Temp 98.8 98.8 Pulse 84 82 Resp 20 20 B/P (MAP) 140/86 (104) 128/84 (99) Pulse Ox 96 97 97 O2 Delivery Ventilator Ventilator Mechanical Ventilator Ventilator 05/09/20 05/09/20 05/09/20 05/09/20 05:00 06:00 07:00 08:00 Pulse 80 80 79 Resp 20 20 20 B/P (MAP) 137/78 (97) 142/91 (108) 140/83 (102) Pulse Ox 96 96 97 O2 Delivery Ventilator Ventilator Ventilator Mechanical Ventilator 05/09/20 05/09/20 05/09/20 05/09/20 08:00 08:10 09:00 10:00 Temp 98.0 98.0 Pulse 76 78 77 Resp 20 20 20 B/P (MAP) 150/94 (112) 144/96 (112) 153/113 (126) Pulse Ox 97 97 97 97 O2 Delivery Ventilator Ventilator Ventilator Ventilator Intake and Output 05/08/20 05/08/20 05/09/20 15:00 23:00 07:00 Intake Total 1004.84 ml 1400 ml Output Total 120 ml 275 ml 300 ml Balance 884.84 ml 1125 ml -300 ml CLARK MCMANUS MD May 09, 2020 10:52
--- NOTE | 2020-05-09 11:07 | PDOC2 ---
CONSULT Date of Consult Date of Consult DATE: 05/09/20 TIME: 11:00 Reason for Consult Reason for Consult: EVY Referring Physician Referring Physician: YONATHAN Identification/Chief Complaint Chief Complaint SOB Source Source: Chart review History of Present Illness Reason for Visit: THIS IS A 54 YR OLD WITH HX OF COPD. ADMITTED WITH SOB AND RESP DISTRESS. INTUBATED IN THE ER AND NOW IN THE ICU. NO KNOW CKD OR HX AVAILABLE. CR OF 2.2 ON ADMIT. UA DIPSTICK POS FOR BLOOD BUT NOT MAY RBC'S. UDS POS FOR COCAINE. HEMODYNAMICALLY STABLE. APPARENTLY VISITING FAMILY HERE FROM [place]. NOTED TO HAVE HYPERCARBIA AND HYPOXIA. UNKNOWN BASELINE PCO2 LEVEL. CARDIAC ENZYMES WERE ALSO ELEVATED AND PT IS UNDERGOING CARDIOLOGY AND PULM EVALUATION. Past Medical History Cardiovascular: HTN Pulmonary: COPD Past Surgical History Past Surgical History: Hernia Repair, No pertinent history Family History Family History: Hypertension Social History 1 pack per day ALCOHOL: social Drugs: None, Cocaine Lives: with Family Current Problem List Problem List Problems Medical Problems: (1) Cocaine abuse Status: Acute (2) NSTEMI (non-ST elevated myocardial infarction) Status: Acute (3) Respiratory failure Status: Acute (4) Suspected COVID-19 virus infection Status: Acute Current Medications Current Medications Current Medications Propofol 50 ml @ As Directed STK-MED ONCE IV ; Start 05/08/20 at 07:33; Stop 05/08/20 at 07:33; Status DC Propofol 100 ml @ 0 mls/hr CONT PRN IV SEE PROTOCOL Last administered on 05/08/20at 07:35; Start 05/08/20 at 07:45 Fentanyl Citrate (Fentanyl 2ml Vial) 50 mcg PRN Q1HR PRN IV SEE COMMENTS Last administered on 05/08/20at 12:44; Start 05/08/20 at 07:45 Chlorhexidine Gluconate (Peridex) 15 ml BID MM Last administered on 05/09/20at 08:22; Start 05/08/20 at 09:00 Etomidate (Amidate) 20 mg 1X ONCE IV Last administered on 05/08/20at 07:30; Start 05/08/20 at 07:45; Stop 05/08/20 at 09:04; Status DC Succinylcholine Chloride (Anectine) 100 mg 1X ONCE IV Last administered on 05/08/20at 07:31; Start 05/08/20 at 07:45; Stop 05/08/20 at 09:04; Status DC Albuterol/ Ipratropium (Duoneb) 6 ml 1X ONCE NEB ; Start 05/08/20 at 07:45; Stop 05/08/20 at 09:04; Status DC Methylprednisolone Sodium Succinate (SOLU-Medrol 125MG VIAL) 125 mg 1X ONCE IV Last administered on 05/08/20at 08:31; Start 05/08/20 at 07:45; Stop 05/08/20 at 09:04; Status DC Albuterol Sulfate (Ventolin Neb Soln) 2.5 mg 1X ONCE NEB ; Start 05/08/20 at 07:45; Stop 05/08/20 at 08:56; Status DC Ceftriaxone Sodium (Rocephin) 1 gm 1X ONCE IVP Last administered on 05/08/20at 08:31; Start 05/08/20 at 07:45; Stop 05/08/20 at 09:04; Status DC Propofol (Diprivan) 40 mg 1X ONCE IV ; Start 05/08/20 at 08:00; Stop 05/08/20 at 09:04; Status DC Fentanyl Citrate 30 ml @ 0 mls/hr CONT PRN IV SEE PROTOCOL Last administered on 05/08/20at 23:49; Start 05/08/20 at 08:15 Midazolam HCl 100 ml @ 0 mls/hr CONT PRN IV SEE PROTOCOL Last administered on 05/09/20at 03:38; Start 05/08/20 at 08:15 Sodium Chloride 1,000 ml @ 1,000 mls/hr 1X ONCE IV Last administered on 05/08/20at 08:47; Start 05/08/20 at 08:30; Stop 05/08/20 at 09:29; Status DC Midazolam HCl (Versed) 5 mg 1X ONCE IV Last administered on 05/08/20at 08:33; Start 05/08/20 at 08:30; Stop 05/08/20 at 09:04; Status DC Ondansetron HCl (Zofran) 4 mg PRN Q8HRS PRN IV NAUSEA/VOMITING; Start 05/08/20 at 08:45; Stop 05/09/20 at 08:44; Status DC Aspirin (Aspirin Rectal Supp) 300 mg 1X ONCE DC Last administered on 05/08/20at 10:00; Start 05/08/20 at 08:45; Stop 05/08/20 at 09:04; Status DC Sodium Chloride (Normal Saline Flush) 3 ml QSHIFT PRN IV AFTER MEDS AND BLOOD DRAWS; Start 05/08/20 at 11:30; Stop 05/08/20 at 18:55; Status DC Sodium Chloride 1,000 ml @ 60 mls/hr [id number] IV Last administered on 05/08/20at 12:53; Start 05/08/20 at 11:24; Stop 05/08/20 at 18:55; Status DC Ondansetron HCl (Zofran) 4 mg PRN Q4HRS PRN IV NAUSEA/VOMITING; Start 05/08/20 at 11:30; Stop 05/08/20 at 18:55; Status DC Acetaminophen (Tylenol Supp) 650 mg PRN Q4HRS PRN DC TEMP OVER 100.4F OR MILD PAIN; Start 05/08/20 at 11:30; Stop 05/08/20 at 18:47; Status DC Sodium Monofluorophosphate (Fleet Adult) 133 ml PRN DAILY PRN DC CONSTIPATION; Start 05/08/20 at 11:30; Stop 05/08/20 at 18:55; Status DC Albuterol/ Ipratropium (Duoneb) 3 ml Q4H NEB ; Start 05/08/20 at 11:30; Stop 05/08/20 at 15:37; Status DC Enoxaparin Sodium (Lovenox 40mg Syringe) 40 mg DAILY SQ ; Start 05/09/20 at 09:00; Stop 05/08/20 at 18:54; Status DC Pantoprazole Sodium (PROTONIX VIAL for IV PUSH) 40 mg DAILYAC IVP Last administered on 05/09/20at 08:22; Start 05/08/20 at 11:30 Etomidate (Amidate) 40 mg 1X ONCE IV Last administered on 05/08/20at 07:57; Start 05/08/20 at 07:55; Stop 05/08/20 at 12:05; Status DC Methylprednisolone Sodium Succinate (SOLU-Medrol 125MG VIAL) 60 mg Q8HRS IV Last administered on 05/09/20at 06:10; Start 05/08/20 at 14:00 Midazolam HCl (Versed) 5 mg PRN Q15MIN PRN IV SEDATION Last administered on 05/08/20at 12:32; Start 05/08/20 at 08:00 Enoxaparin Sodium (Lovenox Per Pharmacy Prophylaxis Dosing) 1 each PRN DAILY PRN MC SEE COMMENTS; Start 05/08/20 at 16:00 Sodium Chloride (Normal Saline Flush) 3 ml QSHIFT PRN IV AFTER MEDS AND BLOOD DRAWS; Start 05/08/20 at 16:15 Sodium Chloride 1,000 ml @ 80 mls/hr [id number] IV Last administered on 05/09/20at 02:32; Start 05/08/20 at 16:01 Ondansetron HCl (Zofran) 4 mg PRN Q4HRS PRN IV NAUSEA/VOMITING; Start 05/08/20 at 16:15 Acetaminophen (Tylenol Supp) 650 mg PRN Q4HRS PRN DC TEMP OVER 100.4F OR MILD PAIN; Start 05/08/20 at 16:15 Sodium Monofluorophosphate (Fleet Adult) 133 ml PRN DAILY PRN DC CONSTIPATION; Start 05/08/20 at 16:15 Albuterol/ Ipratropium (Duoneb) 3 ml Q4H NEB ; Start 05/08/20 at 16:15; Stop 05/08/20 at 18:45; Status DC Enoxaparin Sodium (Lovenox 40mg Syringe) 40 mg Q24H SQ Last administered on 05/08/20at 17:17; Start 05/08/20 at 17:00 Ceftriaxone Sodium (Rocephin) 1 gm Q24H IVP Last administered on 05/09/20at 08 :22; Start 05/09/20 at 08:00 Aspirin (Aspirin Chewable) 81 mg DAILYWBKFT PO ; Start 05/08/20 at 17:30; Stop 05/08/20 at 17:27; Status DC Aspirin (Aspirin Chewable) 81 mg DAILYWBKFT PO Last administered on 05/09/20at 08:22; Start 05/09/20 at 08:00 Albuterol Sulfate (Ventolin Neb Soln) 2.5 mg PRN Q4HRS PRN NEB SHORTNESS OF BREATH; Start 05/08/20 at 19:00 Active Scripts Active Reported [amlodipine benazep] Unknown Dose PO Proventil Hfa (Albuterol Sulfate) 6.7 Gm Hfa.aer.ad 1 Puff INH PRN Q6HRS PRN Advair 100-50 Diskus (Fluticasone/Salmeterol) 1 Each Disk.w.dev 1 Puff IH BID Allergies Allergies: Coded Allergies: No Known Drug Allergies (Unverified , 05/08/20) ROS Review of System UNABLE TO OBTAIN Physical Exam General: Other (INTUBATED AND SEDATED) HEENT: Atraumatic, PERRLA Lungs: Clear to auscultation Heart: Regular rate, Normal S1, Normal S2 Abdomen: Normal bowel sounds, No tenderness Extremities: No cyanosis Skin: No breakdown, No significant lesion Neuro: Other (SEDATED) Psych/Mental Status: Other (SEDATED) MUSCULOSKELETAL: No joint tenderness, No deformity Vitals VITALS Vital Signs Date Time Temp Pulse Resp B/P (MAP) Pulse Ox O2 Delivery O2 Flow Rate FiO2 05/09/20 10:00 77 20 153/113 (126) 97 Ventilator 05/09/20 08:00 98.0 98.0 05/09/20 00:19 15.0 Labs Labs Laboratory Tests Test 05/08/20 07:17 05/08/20 07:20 05/08/20 08:45 05/08/20 09:20 Glucose (Fingerstick) 231 mg/dL (70-99) White Blood Count 16.0 x10^3/uL (4.0-11.0) Red Blood Count 6.18 x10^6/uL (4.30-5.70) Hemoglobin 14.6 g/dL (13.0-17.5) Hematocrit 48.3 % (39.0-53.0) Mean Corpuscular Volume 78 fL (79-100) Mean Corpuscular Hemoglobin 24 pg (25-35) Mean Corpuscular Hemoglobin Concent 30 g/dL (31-37) Red Cell Distribution Width 17.5 % (11.5-14.5) Platelet Count 283 x10^3/uL (140-400) Neutrophils (%) (Auto) 49 % (31-73) Lymphocytes (%) (Auto) 44 % (24-48) Monocytes (%) (Auto) 6 % (0-9) Eosinophils (%) (Auto) 1 % (0-3) Basophils (%) (Auto) 0 % (0-3) Neutrophils # (Auto) 7.9 x10^3/uL (1.8-7.7) Lymphocytes # (Auto) 6.9 x10^3/uL (1.0-4.8) Monocytes # (Auto) 1.0 x10^3/uL (0.0-1.1) Eosinophils # (Auto) 0.1 x10^3/uL (0.0-0.7) Basophils # (Auto) 0.0 x10^3/uL (0.0-0.2) Prothrombin Time 15.2 SEC (11.7-14.0) Prothromb Time International Ratio 1.2 (0.8-1.1) Sodium Level 141 mmol/L (136-145) Potassium Level 4.5 mmol/L (3.5-5.1) Chloride Level 103 mmol/L (98-107) Carbon Dioxide Level 29 mmol/L (21-32) Anion Gap 9 (6-14) Blood Urea Nitrogen 33 mg/dL (8-26) Creatinine 2.2 mg/dL (0.7-1.3) Estimated GFR (Cockcroft-Gault) 31.1 BUN/Creatinine Ratio 15 (6-20) Glucose Level 237 mg/dL (70-99) Hemoglobin A1c 6.7 % (4.8-5.6) Calcium Level 7.9 mg/dL (8.5-10.1) Total Bilirubin 0.5 mg/dL (0.2-1.0) Aspartate Amino Transf (AST/SGOT) 64 U/L (15-37) Alanine Aminotransferase (ALT/SGPT) 93 U/L (16-63) Alkaline Phosphatase 37 U/L (46-116) Troponin I Quantitative 1.123 ng/mL (0.000-0.055) YS-Syd-V-Type Natriuretic Peptide 5279 pg/mL (0-124) Total Protein 6.1 g/dL (6.4-8.2) Albumin 3.1 g/dL (3.4-5.0) Albumin/Globulin Ratio 1.0 (1.0-1.7) Triglycerides Level 119 mg/dL (0-150) Cholesterol Level 109 mg/dL (0-200) LDL Cholesterol, Calculated 52 mg/dL (0-100) VLDL Cholesterol, Calculated 24 mg/dL (0-40) Non-HDL Cholesterol Calculated 76 mg/dL (0-129) HDL Cholesterol 33 mg/dL (40-60) Cholesterol/HDL Ratio 3.3 Thyroid Stimulating Hormone (TSH) 5.769 uIU/mL (0.358-3.74) O2 Saturation 99 % (92-99) Arterial Blood pH 7.28 (7.35-7.45) Arterial Blood pCO2 at Patient Temp 59 mmHg (35-46) Arterial Blood pO2 at Patient Temp 167 mmHg (75-108) Arterial Blood HCO3 27 mmol/L (21-28) Arterial Blood Base Excess -1 mmol/L (-3-3) Oxyhemoglobin 94.7 % Methemoglobin 0.5 % (0.0-1.9) Carbon Monoxide, Quantitative 3.4 % (0.0-1.9) FiO2 100 Urine Collection Type Unknown Urine Color [place] Urine Clarity Turbid Urine pH 5.5 (<5.0-8.0) Urine Specific [place] 1.025 (1.000-1.030) Urine Protein >=300 mg/dL (NEG-TRACE) Urine Glucose (UA) 100 mg/dL (NEG) Urine Ketones (Stick) Negative mg/dL (NEG) Urine Blood Large (NEG) Urine Nitrite Negative (NEG) Urine Bilirubin Negative (NEG) Urine Urobilinogen Dipstick 1.0 mg/dL (0.2 mg/dL) Urine Leukocyte Esterase Negative (NEG) Urine RBC 6-10 /HPF (0-2) Urine WBC 1-4 /HPF (0-4) Urine Squamous Epithelial Cells Few /LPF Urine Amorphous Sediment Present /HPF Urine Bacteria 0 /HPF (0-FEW) Urine Sperm Present /HPF Urine Opiates Screen Neg (NEG) Urine Methadone Screen Neg (NEG) Urine Barbiturates Neg (NEG) Urine Phencyclidine Screen Neg (NEG) Urine Amphetamine/Methamphetamine Neg (NEG) Urine Benzodiazepines Screen Pos (NEG) Urine Cocaine Screen Pos (NEG) Urine Cannabinoids Screen Neg (NEG) Urine Ethyl Alcohol Neg (NEG) Test 05/08/20 11:00 05/08/20 14:45 05/08/20 17:20 05/09/20 03:05 Troponin I Quantitative 1.629 ng/mL (0.000-0.055) 1.664 ng/mL (0.000-0.055) 1.348 ng/mL (0.000-0.055) Urine Collection Type Unknown Urine Color Yellow Urine Clarity Turbid Urine pH 5.0 (<5.0-8.0) Urine Specific [place] 1.025 (1.000-1.030) Urine Protein 100 mg/dL (NEG-TRACE) Urine Glucose (UA) Negative mg/dL (NEG) Urine Ketones (Stick) Negative mg/dL (NEG) Urine Blood Moderate (NEG) Urine Nitrite Negative (NEG) Urine Bilirubin Small (NEG) Urine Urobilinogen Dipstick 1.0 mg/dL (0.2 mg/dL) Urine Leukocyte Esterase Negative (NEG) Urine RBC 6-10 /HPF (0-2) Urine WBC 1-4 /HPF (0-4) Urine Amorphous Sediment Present /HPF Urine Bacteria 0 /HPF (0-FEW) White Blood Count 8.2 x10^3/uL (4.0-11.0) Red Blood Count 5.89 x10^6/uL (4.30-5.70) Hemoglobin 13.6 g/dL (13.0-17.5) Hematocrit 44.5 % (39.0-53.0) Mean Corpuscular Volume 76 fL (79-100) Mean Corpuscular Hemoglobin 23 pg (25-35) Mean Corpuscular Hemoglobin Concent 31 g/dL (31-37) Red Cell Distribution Width 17.2 % (11.5-14.5) Platelet Count 214 x10^3/uL (140-400) Neutrophils (%) (Auto) 89 % (31-73) Lymphocytes (%) (Auto) 9 % (24-48) Monocytes (%) (Auto) 2 % (0-9) Eosinophils (%) (Auto) 0 % (0-3) Basophils (%) (Auto) 0 % (0-3) Neutrophils # (Auto) 7.3 x10^3/uL (1.8-7.7) Lymphocytes # (Auto) 0.7 x10^3/uL (1.0-4.8) Monocytes # (Auto) 0.2 x10^3/uL (0.0-1.1) Eosinophils # (Auto) 0.0 x10^3/uL (0.0-0.7) Basophils # (Auto) 0.0 x10^3/uL (0.0-0.2) Segmented Neutrophils % 84 % (35-66) Lymphocytes % 10 % (24-48) Monocytes % 6 % (0-10) Nucleated Red Blood Cells 2 Platelet Estimate Adequate (ADEQUATE) Large Platelets Few Polychromasia Slight Basophilic Stippling Present Anisocytosis Slight Sodium Level 142 mmol/L (136-145) Potassium Level 4.7 mmol/L (3.5-5.1) Chloride Level 106 mmol/L (98-107) Carbon Dioxide Level 28 mmol/L (21-32) Anion Gap 8 (6-14) Blood Urea Nitrogen 45 mg/dL (8-26) Creatinine 2.4 mg/dL (0.7-1.3) Estimated GFR (Cockcroft-Gault) 34.1 BUN/Creatinine Ratio 19 (6-20) Glucose Level 160 mg/dL (70-99) Calcium Level 7.6 mg/dL (8.5-10.1) Total Bilirubin 0.6 mg/dL (0.2-1.0) Aspartate Amino Transf (AST/SGOT) 47 U/L (15-37) Alanine Aminotransferase (ALT/SGPT) 85 U/L (16-63) Alkaline Phosphatase 29 U/L (46-116) Total Protein 5.2 g/dL (6.4-8.2) Albumin 2.6 g/dL (3.4-5.0) Albumin/Globulin Ratio 1.0 (1.0-1.7) Test 05/09/20 08:55 O2 Saturation 93 % (92-99) Arterial Blood pH 7.36 (7.35-7.45) Arterial Blood pH (Temp corrected) 7.37 Arterial Blood pCO2 at Patient Temp 47 mmHg (35-46) Arterial Blood pCO2 (Temp correct) 46 mmHg Arterial Blood pO2 at Patient Temp 72 mmHg (75-108) Arterial Blood pO2 (Temp corrected) 71 mmHg Arterial Blood HCO3 26 mmol/L (21-28) Arterial Blood Base Excess 0 mmol/L (-3-3) FiO2 70% vent Laboratory Tests Test 05/08/20 14:45 05/08/20 17:20 05/09/20 03:05 05/09/20 08:55 Troponin I Quantitative 1.664 ng/mL (0.000-0.055) 1.348 ng/mL (0.000-0.055) Urine Collection Type Unknown Urine Color Yellow Urine Clarity Turbid Urine pH 5.0 (<5.0-8.0) Urine Specific [place] 1.025 (1.000-1.030) Urine Protein 100 mg/dL (NEG-TRACE) Urine Glucose (UA) Negative mg/dL (NEG) Urine Ketones (Stick) Negative mg/dL (NEG) Urine Blood Moderate (NEG) Urine Nitrite Negative (NEG) Urine Bilirubin Small (NEG) Urine Urobilinogen Dipstick 1.0 mg/dL (0.2 mg/dL) Urine Leukocyte Esterase Negative (NEG) Urine RBC 6-10 /HPF (0-2) Urine WBC 1-4 /HPF (0-4) Urine Amorphous Sediment Present /HPF Urine Bacteria 0 /HPF (0-FEW) White Blood Count 8.2 x10^3/uL (4.0-11.0) Red Blood Count 5.89 x10^6/uL (4.30-5.70) Hemoglobin 13.6 g/dL (13.0-17.5) Hematocrit 44.5 % (39.0-53.0) Mean Corpuscular Volume 76 fL (79-100) Mean Corpuscular Hemoglobin 23 pg (25-35) Mean Corpuscular Hemoglobin Concent 31 g/dL (31-37) Red Cell Distribution Width 17.2 % (11.5-14.5) Platelet Count 214 x10^3/uL (140-400) Neutrophils (%) (Auto) 89 % (31-73) Lymphocytes (%) (Auto) 9 % (24-48) Monocytes (%) (Auto) 2 % (0-9) Eosinophils (%) (Auto) 0 % (0-3) Basophils (%) (Auto) 0 % (0-3) Neutrophils # (Auto) 7.3 x10^3/uL (1.8-7.7) Lymphocytes # (Auto) 0.7 x10^3/uL (1.0-4.8) Monocytes # (Auto) 0.2 x10^3/uL (0.0-1.1) Eosinophils # (Auto) 0.0 x10^3/uL (0.0-0.7) Basophils # (Auto) 0.0 x10^3/uL (0.0-0.2) Segmented Neutrophils % 84 % (35-66) Lymphocytes % 10 % (24-48) Monocytes % 6 % (0-10) Nucleated Red Blood Cells 2 Platelet Estimate Adequate (ADEQUATE) Large Platelets Few Polychromasia Slight Basophilic Stippling Present Anisocytosis Slight Sodium Level 142 mmol/L (136-145) Potassium Level 4.7 mmol/L (3.5-5.1) Chloride Level 106 mmol/L (98-107) Carbon Dioxide Level 28 mmol/L (21-32) Anion Gap 8 (6-14) Blood Urea Nitrogen 45 mg/dL (8-26) Creatinine 2.4 mg/dL (0.7-1.3) Estimated GFR (Cockcroft-Gault) 34.1 BUN/Creatinine Ratio 19 (6-20) Glucose Level 160 mg/dL (70-99) Calcium Level 7.6 mg/dL (8.5-10.1) Total Bilirubin 0.6 mg/dL (0.2-1.0) Aspartate Amino Transf (AST/SGOT) 47 U/L (15-37) Alanine Aminotransferase (ALT/SGPT) 85 U/L (16-63) Alkaline Phosphatase 29 U/L (46-116) Total Protein 5.2 g/dL (6.4-8.2) Albumin 2.6 g/dL (3.4-5.0) Albumin/Globulin Ratio 1.0 (1.0-1.7) O2 Saturation 93 % (92-99) Arterial Blood pH 7.36 (7.35-7.45) Arterial Blood pH (Temp corrected) 7.37 Arterial Blood pCO2 at Patient Temp 47 mmHg (35-46) Arterial Blood pCO2 (Temp correct) 46 mmHg Arterial Blood pO2 at Patient Temp 72 mmHg (75-108) Arterial Blood pO2 (Temp corrected) 71 mmHg Arterial Blood HCO3 26 mmol/L (21-28) Arterial Blood Base Excess 0 mmol/L (-3-3) FiO2 70% vent Assessment/Plan Assessment/Plan IMP EVY WITH CR OF 2.4 POSSIBLE RHABDOMYOLYSIS ACUTE ON CHRONIC HYPERCARBIC HYPOXIC RESP FAILURE SUBSTANCE ABUSE-COCAINE LEUCOCYTOSIS-PROB REACTIVE NSTEMI HYPERGLYCEMIA HTN PLAN RULING OUT COVID 19 VENT SUPPORT SALINE HYDRATION START TF CHECK CPK LEVEL CARDIOLOGY AND PULM EVAL WILL FOLLOW CLOVER REID MD May 09, 2020 11:07
--- NOTE | 2020-05-09 13:23 | NUR ---
SS following for discharge planning. SS reviewed pt chart and discussed with pt RN. Pt is from home with spouse and is currently on the vent. Pt on IV Rocephin. Pt COVID19 pending. SS will continue to follow for discharge planning.
[2020-05-09] MEDS ORDERED: cloNIDine HCL 0.1 MG TABLET PO PRN (14:30)
[2020-05-09] MEDS ORDERED: amLODIPine BESYLATE 10 MG TABLET PO ONE (14:30)
[2020-05-09] MEDS: ENOXAPARIN 40 MG/0.4 ML SYRINGE. SQ SCH (17:04)
[2020-05-10] VITALS (24 sets, daily range): BP systolic 97–135; BP diastolic 64–92
[2020-05-10] MEDS: MIDAZOLAM 100mg/100ml NS BAG 100 ML IV PRN ×3 (01:44→21:56)
[2020-05-10] MEDS: IV NORMAL SALINE 1000ML BAG 1,000 ML IV SCH ×3 (03:23→21:56)
[2020-05-10 05:09] LABS: BASO % 0 % (0-3); EOS % 0 % (0-3); HEMATOCRIT 44.5 % (39.0-53.0); HEMOGLOBIN 13.9 g/dL (13.0-17.5); LYMPH # 0.5 x10^3/uL (1.0-4.8); LYMPH % 4 % (24-48); MEAN CORPUSCULAR HEMOGLOBIN 23 pg (25-35); MEAN CORPUSCULAR HGB CONC 31 g/dL (31-37); MEAN CORPUSCULAR VOLUME 75 fL (79-100); MONO # 0.3 x10^3/uL (0.0-1.1); MONO % 3 % (0-9); NEUT # 10.4 x10^3/uL (1.8-7.7); NEUT % 93 % (31-73); PLATELET COUNT 199 x10^3/uL (140-400); RED BLOOD COUNT 5.95 x10^6/uL (4.30-5.70); WHITE BLOOD COUNT 11.2 x10^3/uL (4.0-11.0)
--- NOTE | 2020-05-10 05:23 | RAD ---
EXAM: CHEST 1 VIEW History: Respiratory failure COMPARISON: 05/08/2020 TECHNIQUE: Single portable radiograph of the chest FINDINGS: Low lung volumes and technique accentuates heart size and pulmonary vascularity. Feeding tube is identified in the stomach. Mild bibasilar lung airspace opacities likely atelectasis or infiltrates. IMPRESSION: Mild bibasilar lung airspace opacities likely atelectasis or infiltrates. Electronically signed by: Alex Yanes MD (05/10/2020 5:20 AM) [id number]
[2020-05-10 05:43] LABS: ALBUMIN 2.5 g/dL (3.4-5.0); ALBUMIN/GLOBULIN RATIO 0.9 (1.0-1.7); CALCIUM 7.5 mg/dL (8.5-10.1); CREATININE 3.3 mg/dL (0.7-1.3); GFR 23.6; POTASSIUM 4.8 mmol/L (3.5-5.1); TOTAL BILIRUBIN 0.5 mg/dL (0.2-1.0); TOTAL PROTEIN 5.2 g/dL (6.4-8.2)
[2020-05-10] MEDS: methylPREDNISolone SOD SUCC PF 125 MG/2 ML VIAL. IV SCH ×3 (06:11→21:55)
[2020-05-10 07:59] LABS: BASE EXCESS ABG -1 mmol/L (-3-3); HCO3 ABG 25 mmol/L (21-28); PCO2 ABG 49 mmHg (35-46); PO2 ABG 65 mmHg (75-108)
[2020-05-10 08:00] LABS: FIO2 ABG 70; SAT O2 ABG 89 % (92-99)
[2020-05-10] MEDS: PANTOPRAZOLE IV PUSH 40 MG VIAL. IVP SCH (08:21)
[2020-05-10] MEDS: CHLORHEXIDINE 0.12% 15 ML MOUTHWASH. MM SCH ×2 (08:32→21:11)
[2020-05-10] MEDS: cefTRIAXone IV Push 1 GM VIAL. IVP SCH (08:32)
[2020-05-10] MEDS: ASPIRIN CHEWABLE 81 MG TABLET. PO SCH (08:32)
[2020-05-10] MEDS: PROPOFOL 100 ML IV PRN ×4 (09:03→21:55)
--- NOTE | 2020-05-10 09:12 | PDOC ---
PULMONARY PROGRESS NOTES Subjective remains intubated/sedated AC mode, 70%FIO2 Vitals Vital Signs Date Time Temp Pulse Resp B/P (MAP) Pulse Ox O2 Delivery O2 Flow Rate FiO2 05/10/20 08:00 Mechanical Ventilator 05/10/20 08:00 97.9 72 20 125/82 (96) 93 97.9 05/09/20 11:49 15.0 Comments intubated/sedated Lungs: Other (decrease bs) Cardiovascular: S1 Abdomen: Soft, Other (obese) Extremities: Other (trace edema) Labs Laboratory Tests Test 05/08/20 09:20 05/08/20 11:00 05/08/20 14:45 05/08/20 17:20 Urine Collection Type Unknown Unknown Urine Color [place] Yellow Urine Clarity Turbid Turbid Urine pH 5.5 (<5.0-8.0) 5.0 (<5.0-8.0) Urine Specific [place] 1.025 (1.000-1.030) 1.025 (1.000-1.030) Urine Protein >=300 mg/dL (NEG-TRACE) 100 mg/dL (NEG-TRACE) Urine Glucose (UA) 100 mg/dL (NEG) Negative mg/dL (NEG) Urine Ketones (Stick) Negative mg/dL (NEG) Negative mg/dL (NEG) Urine Blood Large (NEG) Moderate (NEG) Urine Nitrite Negative (NEG) Negative (NEG) Urine Bilirubin Negative (NEG) Small (NEG) Urine Urobilinogen Dipstick 1.0 mg/dL (0.2 mg/dL) 1.0 mg/dL (0.2 mg/dL) Urine Leukocyte Esterase Negative (NEG) Negative (NEG) Urine RBC 6-10 /HPF (0-2) 6-10 /HPF (0-2) Urine WBC 1-4 /HPF (0-4) 1-4 /HPF (0-4) Urine Squamous Epithelial Cells Few /LPF Urine Amorphous Sediment Present /HPF Present /HPF Urine Bacteria 0 /HPF (0-FEW) 0 /HPF (0-FEW) Urine Sperm Present /HPF Urine Opiates Screen Neg (NEG) Urine Methadone Screen Neg (NEG) Urine Barbiturates Neg (NEG) Urine Phencyclidine Screen Neg (NEG) Urine Amphetamine/Methamphetamine Neg (NEG) Urine Benzodiazepines Screen Pos (NEG) Urine Cocaine Screen Pos (NEG) Urine Cannabinoids Screen Neg (NEG) Urine Ethyl Alcohol Neg (NEG) Troponin I Quantitative 1.629 ng/mL (0.000-0.055) 1.664 ng/mL (0.000-0.055) Test 05/09/20 03:05 05/09/20 08:55 05/09/20 12:49 05/10/20 04:45 White Blood Count 8.2 x10^3/uL (4.0-11.0) 11.2 x10^3/uL (4.0-11.0) Red Blood Count 5.89 x10^6/uL (4.30-5.70) 5.95 x10^6/uL (4.30-5.70) Hemoglobin 13.6 g/dL (13.0-17.5) 13.9 g/dL (13.0-17.5) Hematocrit 44.5 % (39.0-53.0) 44.5 % (39.0-53.0) Mean Corpuscular Volume 76 fL (79-100) 75 fL (79-100) Mean Corpuscular Hemoglobin 23 pg (25-35) 23 pg (25-35) Mean Corpuscular Hemoglobin Concent 31 g/dL (31-37) 31 g/dL (31-37) Red Cell Distribution Width 17.2 % (11.5-14.5) 17.0 % (11.5-14.5) Platelet Count 214 x10^3/uL (140-400) 199 x10^3/uL (140-400) Neutrophils (%) (Auto) 89 % (31-73) 93 % (31-73) Lymphocytes (%) (Auto) 9 % (24-48) 4 % (24-48) Monocytes (%) (Auto) 2 % (0-9) 3 % (0-9) Eosinophils (%) (Auto) 0 % (0-3) 0 % (0-3) Basophils (%) (Auto) 0 % (0-3) 0 % (0-3) Neutrophils # (Auto) 7.3 x10^3/uL (1.8-7.7) 10.4 x10^3/uL (1.8-7.7) Lymphocytes # (Auto) 0.7 x10^3/uL (1.0-4.8) 0.5 x10^3/uL (1.0-4.8) Monocytes # (Auto) 0.2 x10^3/uL (0.0-1.1) 0.3 x10^3/uL (0.0-1.1) Eosinophils # (Auto) 0.0 x10^3/uL (0.0-0.7) 0.0 x10^3/uL (0.0-0.7) Basophils # (Auto) 0.0 x10^3/uL (0.0-0.2) 0.0 x10^3/uL (0.0-0.2) Segmented Neutrophils % 84 % (35-66) Lymphocytes % 10 % (24-48) Monocytes % 6 % (0-10) Nucleated Red Blood Cells 2 Platelet Estimate Adequate (ADEQUATE) Large Platelets Few Polychromasia Slight Basophilic Stippling Present Anisocytosis Slight Sodium Level 142 mmol/L (136-145) 139 mmol/L (136-145) Potassium Level 4.7 mmol/L (3.5-5.1) 4.8 mmol/L (3.5-5.1) Chloride Level 106 mmol/L (98-107) 103 mmol/L (98-107) Carbon Dioxide Level 28 mmol/L (21-32) 26 mmol/L (21-32) Anion Gap 8 (6-14) 10 (6-14) Blood Urea Nitrogen 45 mg/dL (8-26) 61 mg/dL (8-26) Creatinine 2.4 mg/dL (0.7-1.3) 3.3 mg/dL (0.7-1.3) Estimated GFR (Cockcroft-Gault) 34.1 23.6 BUN/Creatinine Ratio 19 (6-20) 18 (6-20) Glucose Level 160 mg/dL (70-99) 190 mg/dL (70-99) Calcium Level 7.6 mg/dL (8.5-10.1) 7.5 mg/dL (8.5-10.1) Total Bilirubin 0.6 mg/dL (0.2-1.0) 0.5 mg/dL (0.2-1.0) Aspartate Amino Transf (AST/SGOT) 47 U/L (15-37) 20 U/L (15-37) Alanine Aminotransferase (ALT/SGPT) 85 U/L (16-63) 61 U/L (16-63) Alkaline Phosphatase 29 U/L (46-116) 30 U/L (46-116) Creatine Kinase 441 U/L (39-308) 170 U/L (39-308) Troponin I Quantitative 1.348 ng/mL (0.000-0.055) Total Protein 5.2 g/dL (6.4-8.2) 5.2 g/dL (6.4-8.2) Albumin 2.6 g/dL (3.4-5.0) 2.5 g/dL (3.4-5.0) Albumin/Globulin Ratio 1.0 (1.0-1.7) 0.9 (1.0-1.7) O2 Saturation 93 % (92-99) Arterial Blood pH 7.36 (7.35-7.45) Arterial Blood pH (Temp corrected) 7.37 Arterial Blood pCO2 at Patient Temp 47 mmHg (35-46) Arterial Blood pCO2 (Temp correct) 46 mmHg Arterial Blood pO2 at Patient Temp 72 mmHg (75-108) Arterial Blood pO2 (Temp corrected) 71 mmHg Arterial Blood HCO3 26 mmol/L (21-28) Arterial Blood Base Excess 0 mmol/L (-3-3) FiO2 70% vent Glucose (Fingerstick) 270 mg/dL (70-99) Test 05/10/20 07:45 O2 Saturation 89 % (92-99) Arterial Blood pH 7.33 (7.35-7.45) Arterial Blood pCO2 at Patient Temp 49 mmHg (35-46) Arterial Blood pO2 at Patient Temp 65 mmHg (75-108) Arterial Blood HCO3 25 mmol/L (21-28) Arterial Blood Base Excess -1 mmol/L (-3-3) FiO2 70 Laboratory Tests Test 05/09/20 12:49 05/10/20 04:45 05/10/20 07:45 Glucose (Fingerstick) 270 mg/dL (70-99) White Blood Count 11.2 x10^3/uL (4.0-11.0) Red Blood Count 5.95 x10^6/uL (4.30-5.70) Hemoglobin 13.9 g/dL (13.0-17.5) Hematocrit 44.5 % (39.0-53.0) Mean Corpuscular Volume 75 fL (79-100) Mean Corpuscular Hemoglobin 23 pg (25-35) Mean Corpuscular Hemoglobin Concent 31 g/dL (31-37) Red Cell Distribution Width 17.0 % (11.5-14.5) Platelet Count 199 x10^3/uL (140-400) Neutrophils (%) (Auto) 93 % (31-73) Lymphocytes (%) (Auto) 4 % (24-48) Monocytes (%) (Auto) 3 % (0-9) Eosinophils (%) (Auto) 0 % (0-3) Basophils (%) (Auto) 0 % (0-3) Neutrophils # (Auto) 10.4 x10^3/uL (1.8-7.7) Lymphocytes # (Auto) 0.5 x10^3/uL (1.0-4.8) Monocytes # (Auto) 0.3 x10^3/uL (0.0-1.1) Eosinophils # (Auto) 0.0 x10^3/uL (0.0-0.7) Basophils # (Auto) 0.0 x10^3/uL (0.0-0.2) Sodium Level 139 mmol/L (136-145) Potassium Level 4.8 mmol/L (3.5-5.1) Chloride Level 103 mmol/L (98-107) Carbon Dioxide Level 26 mmol/L (21-32) Anion Gap 10 (6-14) Blood Urea Nitrogen 61 mg/dL (8-26) Creatinine 3.3 mg/dL (0.7-1.3) Estimated GFR (Cockcroft-Gault) 23.6 BUN/Creatinine Ratio 18 (6-20) Glucose Level 190 mg/dL (70-99) Calcium Level 7.5 mg/dL (8.5-10.1) Total Bilirubin 0.5 mg/dL (0.2-1.0) Aspartate Amino Transf (AST/SGOT) 20 U/L (15-37) Alanine Aminotransferase (ALT/SGPT) 61 U/L (16-63) Alkaline Phosphatase 30 U/L (46-116) Creatine Kinase 170 U/L (39-308) Total Protein 5.2 g/dL (6.4-8.2) Albumin 2.5 g/dL (3.4-5.0) Albumin/Globulin Ratio 0.9 (1.0-1.7) O2 Saturation 89 % (92-99) Arterial Blood pH 7.33 (7.35-7.45) Arterial Blood pCO2 at Patient Temp 49 mmHg (35-46) Arterial Blood pO2 at Patient Temp 65 mmHg (75-108) Arterial Blood HCO3 25 mmol/L (21-28) Arterial Blood Base Excess -1 mmol/L (-3-3) FiO2 70 Medications Active Scripts Medications Dose Route/Sig Max Daily Dose Days Date Category [amlodipine benazep] Unknown Dose PO 05/08/20 Reported Proventil Hfa (Albuterol Sulfate) 6.7 Gm Hfa.aer.ad 1 Puff INH PRN Q6HRS PRN 05/08/20 Reported Advair 100-50 Diskus (Fluticasone/Salmeterol) 1 Each Disk.w.dev 1 Puff IH BID 05/08/20 Reported Comments cxr 05/10 improved effusions Impression . 1. Acute hypoxic and hypercapnic respiratory failure secondary to multifactorial etiologies including suspected chronic obstructive pulmonary disease with acute exacerbation, non-ST myocardial infarction, and cocaine overdose. Persistent hypoxia with improving cxr/ ? PE/? RV ischemia 2. Underlying chronic obstructive pulmonary disease, clinically suspected. 3. Abnormal chest x-ray with prominent interstitial markings, probably related to mild interstitial edema.improved 4. Abnormal troponin consistent with non-ST myocardial infarction./? RV infarction 5. Acute kidney injury. 6. Abnormal LFTs. Could be related to hypoperfusion. 7. Urine drug screen positive for cocaine. Plan . 1. Continue with present assist control mode. Follow ABGs and make necessary adjustments.Increase FIO2 75%/ PEEP 7 2. Follow Cardiology recommendations. 3. Will get venous dopplers and echo report for RV dilatation. Would start heparin full dose. Cannot do CTA chest 4. IV Solu-Medrol./taper 5. COVID 19 Neg 6. Follow troponin levels. 7. Renal recommendation. 8. d/w in detail 05/09 9. Discussed with RN/RT 10. Discussed with Cardiology. 11. enteral nutrition Critical care time 35 minutes including review of labs , cxr and decision making KARYNA FRASER MD May 10, 2020 09:12
--- NOTE | 2020-05-10 09:39 | RAD ---
AP chest. HISTORY: Respiratory failure AP view was taken of the chest. Endotracheal tube remains in good position. NG tube extends into the abdomen although not optimally evaluated. There is density in both lung bases from atelectasis or infiltrates more on the left than on the right. Pleural effusions are likely. There is been a slight improvement compared to the study from earlier this morning. IMPRESSION: 1. Slight improvement with persistent basilar density bilaterally more on the left. Electronically signed by: Pio Melendrez MD (05/10/2020 9:36 AM) [id number]
--- NOTE | 2020-05-10 09:49 | PDOC ---
PROGRESS NOTES History of Present Illness History of Present Illness VTE Prophylaxis Ordered VTE Prophylaxis Devices: Yes VTE Pharmacological Prophylaxi: Yes Assessment/Plan Assessment/Plan Impression: Respiratory failure COPD ACUTE HYPOXIC / HYPERCAPNIC RESP FAILURE Slight improvement with persistent basilar density bilaterally more on the left. CXR 05/10 Screen COVID-19 virus infection neg 05/09 NSTEMI (non-ST elevated myocardial infarction) COCAINE ABUSE Morbid obesity EVY EVY Echogenic appearing bilateral kidneys probably medical renal disease. No evidence of hydronephrosis. Echo to assess LV systolic function pending negative COVID testing Will review records from [facility] in [place], [place]. when available Consider further ischemic evaluation pending course of hospitalization ADMITTED ICU BED PULM CONSULT AC mode, 70%FIO2 remains intubated/sedated CARDIOLOGY CONSULT VENT SUPPORT heparin drip GI PROPHYLAXIS ECHO TAPERING IV STEROIDS covid 19 screen Nephrology consult cpk Echo to assess LV systolic function pending negative COVID testing review records from [facility] in [place], [place]. when available further ischemic evaluation pending course of hospitalization picc 05/10 BB moving forward with cocaine cessation counseling guarded prognosis 37 min cc time Justicifation of Admission Dx: Justicifation of Admission Dx: Justifications for Admission: Justification of Admission Dx: Yes CHF: Hemodynamic Instability Respiratory Failure: Mechanical Ventilation Acute COPD Exacerbation: Acute COPD Exacerbation Altered Mental Status: Altered Mental Status Vitals Vitals Vital Signs Date Time Temp Pulse Resp B/P (MAP) Pulse Ox O2 Delivery O2 Flow Rate FiO2 05/10/20 09:00 70 22 113/81 (92) 95 Ventilator 05/10/20 08:00 97.9 97.9 05/09/20 11:49 15.0 Physical Exam Physical Exam Heart: RRR Abdomen: obese Neurology: SEDATED General: No acute distress, Other (INTUBATED AND SEDATED) Heart: Regular rate, Normal S1, Normal S2 Lungs: Other (decrease bs) Abdomen: Normal bowel sounds, Soft, No tenderness Extremities: No clubbing, No cyanosis Skin: No breakdown, No significant lesion Labs LABS Examination: Ultrasound kidneys HISTORY: History of acute renal insufficiency COMPARISON: None available FINDINGS: The right kidney measures 11.8 x 5.7 x 5.3 cm . The left kidney measures 13.5 x 6.2 x 5.2 cm. Echogenic appearing bilateral kidneys. No evidence of hydronephrosis. Frances catheter identified in the urinary bladder. IMPRESSION: Echogenic appearing bilateral kidneys probably medical renal disease. No evidence of hydronephrosis. Electronically signed by: Alex Yanes MD (05/09/2020 5:30 AM) [id number] DICTATED and SIGNED BY: ALEX YANES MD DATE: 05/09/20 0530 AP chest. HISTORY: Respiratory failure AP view was taken of the chest. Endotracheal tube remains in good position. NG tube extends into the abdomen although not optimally evaluated. There is density in both lung bases from atelectasis or infiltrates more on the left than on the right. Pleural effusions are likely. There is been a slight improvement compared to the study from earlier this morning. IMPRESSION: 1. Slight improvement with persistent basilar density bilaterally more on the left. Electronically signed by: Pio Melendrez MD (05/10/2020 9:36 AM) [id number] DICTATED and SIGNED BY: PIO MELENDREZ MD DATE: 05/10/20 0936 Laboratory Tests Test 05/09/20 12:49 05/10/20 04:45 05/10/20 07:45 Glucose (Fingerstick) 270 mg/dL (70-99) White Blood Count 11.2 x10^3/uL (4.0-11.0) Red Blood Count 5.95 x10^6/uL (4.30-5.70) Hemoglobin 13.9 g/dL (13.0-17.5) Hematocrit 44.5 % (39.0-53.0) Mean Corpuscular Volume 75 fL (79-100) Mean Corpuscular Hemoglobin 23 pg (25-35) Mean Corpuscular Hemoglobin Concent 31 g/dL (31-37) Red Cell Distribution Width 17.0 % (11.5-14.5) Platelet Count 199 x10^3/uL (140-400) Neutrophils (%) (Auto) 93 % (31-73) Lymphocytes (%) (Auto) 4 % (24-48) Monocytes (%) (Auto) 3 % (0-9) Eosinophils (%) (Auto) 0 % (0-3) Basophils (%) (Auto) 0 % (0-3) Neutrophils # (Auto) 10.4 x10^3/uL (1.8-7.7) Lymphocytes # (Auto) 0.5 x10^3/uL (1.0-4.8) Monocytes # (Auto) 0.3 x10^3/uL (0.0-1.1) Eosinophils # (Auto) 0.0 x10^3/uL (0.0-0.7) Basophils # (Auto) 0.0 x10^3/uL (0.0-0.2) Sodium Level 139 mmol/L (136-145) Potassium Level 4.8 mmol/L (3.5-5.1) Chloride Level 103 mmol/L (98-107) Carbon Dioxide Level 26 mmol/L (21-32) Anion Gap 10 (6-14) Blood Urea Nitrogen 61 mg/dL (8-26) Creatinine 3.3 mg/dL (0.7-1.3) Estimated GFR (Cockcroft-Gault) 23.6 BUN/Creatinine Ratio 18 (6-20) Glucose Level 190 mg/dL (70-99) Calcium Level 7.5 mg/dL (8.5-10.1) Total Bilirubin 0.5 mg/dL (0.2-1.0) Aspartate Amino Transf (AST/SGOT) 20 U/L (15-37) Alanine Aminotransferase (ALT/SGPT) 61 U/L (16-63) Alkaline Phosphatase 30 U/L (46-116) Creatine Kinase 170 U/L (39-308) Total Protein 5.2 g/dL (6.4-8.2) Albumin 2.5 g/dL (3.4-5.0) Albumin/Globulin Ratio 0.9 (1.0-1.7) O2 Saturation 89 % (92-99) Arterial Blood pH 7.33 (7.35-7.45) Arterial Blood pCO2 at Patient Temp 49 mmHg (35-46) Arterial Blood pO2 at Patient Temp 65 mmHg (75-108) Arterial Blood HCO3 25 mmol/L (21-28) Arterial Blood Base Excess -1 mmol/L (-3-3) FiO2 70 Assessment and Plan Assessmemt and Plan Problems Medical Problems: (1) Cocaine abuse Status: Acute (2) NSTEMI (non-ST elevated myocardial infarction) Status: Acute (3) Respiratory failure Status: Acute (4) Suspected COVID-19 virus infection Status: Acute Comment Review of Relevant I have reviewed the following items jeffrey (where applicable) has been applied. Labs Laboratory Tests Test 05/08/20 11:00 05/08/20 14:45 05/08/20 17:20 05/09/20 03:05 Troponin I Quantitative 1.629 ng/mL (0.000-0.055) 1.664 ng/mL (0.000-0.055) 1.348 ng/mL (0.000-0.055) Urine Collection Type Unknown Urine Color Yellow Urine Clarity Turbid Urine pH 5.0 (<5.0-8.0) Urine Specific [place] 1.025 (1.000-1.030) Urine Protein 100 mg/dL (NEG-TRACE) Urine Glucose (UA) Negative mg/dL (NEG) Urine Ketones (Stick) Negative mg/dL (NEG) Urine Blood Moderate (NEG) Urine Nitrite Negative (NEG) Urine Bilirubin Small (NEG) Urine Urobilinogen Dipstick 1.0 mg/dL (0.2 mg/dL) Urine Leukocyte Esterase Negative (NEG) Urine RBC 6-10 /HPF (0-2) Urine WBC 1-4 /HPF (0-4) Urine Amorphous Sediment Present /HPF Urine Bacteria 0 /HPF (0-FEW) White Blood Count 8.2 x10^3/uL (4.0-11.0) Red Blood Count 5.89 x10^6/uL (4.30-5.70) Hemoglobin 13.6 g/dL (13.0-17.5) Hematocrit 44.5 % (39.0-53.0) Mean Corpuscular Volume 76 fL (79-100) Mean Corpuscular Hemoglobin 23 pg (25-35) Mean Corpuscular Hemoglobin Concent 31 g/dL (31-37) Red Cell Distribution Width 17.2 % (11.5-14.5) Platelet Count 214 x10^3/uL (140-400) Neutrophils (%) (Auto) 89 % (31-73) Lymphocytes (%) (Auto) 9 % (24-48) Monocytes (%) (Auto) 2 % (0-9) Eosinophils (%) (Auto) 0 % (0-3) Basophils (%) (Auto) 0 % (0-3) Neutrophils # (Auto) 7.3 x10^3/uL (1.8-7.7) Lymphocytes # (Auto) 0.7 x10^3/uL (1.0-4.8) Monocytes # (Auto) 0.2 x10^3/uL (0.0-1.1) Eosinophils # (Auto) 0.0 x10^3/uL (0.0-0.7) Basophils # (Auto) 0.0 x10^3/uL (0.0-0.2) Segmented Neutrophils % 84 % (35-66) Lymphocytes % 10 % (24-48) Monocytes % 6 % (0-10) Nucleated Red Blood Cells 2 Platelet Estimate Adequate (ADEQUATE) Large Platelets Few Polychromasia Slight Basophilic Stippling Present Anisocytosis Slight Sodium Level 142 mmol/L (136-145) Potassium Level 4.7 mmol/L (3.5-5.1) Chloride Level 106 mmol/L (98-107) Carbon Dioxide Level 28 mmol/L (21-32) Anion Gap 8 (6-14) Blood Urea Nitrogen 45 mg/dL (8-26) Creatinine 2.4 mg/dL (0.7-1.3) Estimated GFR (Cockcroft-Gault) 34.1 BUN/Creatinine Ratio 19 (6-20) Glucose Level 160 mg/dL (70-99) Calcium Level 7.6 mg/dL (8.5-10.1) Total Bilirubin 0.6 mg/dL (0.2-1.0) Aspartate Amino Transf (AST/SGOT) 47 U/L (15-37) Alanine Aminotransferase (ALT/SGPT) 85 U/L (16-63) Alkaline Phosphatase 29 U/L (46-116) Creatine Kinase 441 U/L (39-308) Total Protein 5.2 g/dL (6.4-8.2) Albumin 2.6 g/dL (3.4-5.0) Albumin/Globulin Ratio 1.0 (1.0-1.7) Test 05/09/20 08:55 05/09/20 12:49 05/10/20 04:45 05/10/20 07:45 O2 Saturation 93 % (92-99) 89 % (92-99) Arterial Blood pH 7.36 (7.35-7.45) 7.33 (7.35-7.45) Arterial Blood pH (Temp corrected) 7.37 Arterial Blood pCO2 at Patient Temp 47 mmHg (35-46) 49 mmHg (35-46) Arterial Blood pCO2 (Temp correct) 46 mmHg Arterial Blood pO2 at Patient Temp 72 mmHg (75-108) 65 mmHg (75-108) Arterial Blood pO2 (Temp corrected) 71 mmHg Arterial Blood HCO3 26 mmol/L (21-28) 25 mmol/L (21-28) Arterial Blood Base Excess 0 mmol/L (-3-3) -1 mmol/L (-3-3) FiO2 70% vent 70 Glucose (Fingerstick) 270 mg/dL (70-99) White Blood Count 11.2 x10^3/uL (4.0-11.0) Red Blood Count 5.95 x10^6/uL (4.30-5.70) Hemoglobin 13.9 g/dL (13.0-17.5) Hematocrit 44.5 % (39.0-53.0) Mean Corpuscular Volume 75 fL (79-100) Mean Corpuscular Hemoglobin 23 pg (25-35) Mean Corpuscular Hemoglobin Concent 31 g/dL (31-37) Red Cell Distribution Width 17.0 % (11.5-14.5) Platelet Count 199 x10^3/uL (140-400) Neutrophils (%) (Auto) 93 % (31-73) Lymphocytes (%) (Auto) 4 % (24-48) Monocytes (%) (Auto) 3 % (0-9) Eosinophils (%) (Auto) 0 % (0-3) Basophils (%) (Auto) 0 % (0-3) Neutrophils # (Auto) 10.4 x10^3/uL (1.8-7.7) Lymphocytes # (Auto) 0.5 x10^3/uL (1.0-4.8) Monocytes # (Auto) 0.3 x10^3/uL (0.0-1.1) Eosinophils # (Auto) 0.0 x10^3/uL (0.0-0.7) Basophils # (Auto) 0.0 x10^3/uL (0.0-0.2) Sodium Level 139 mmol/L (136-145) Potassium Level 4.8 mmol/L (3.5-5.1) Chloride Level 103 mmol/L (98-107) Carbon Dioxide Level 26 mmol/L (21-32) Anion Gap 10 (6-14) Blood Urea Nitrogen 61 mg/dL (8-26) Creatinine 3.3 mg/dL (0.7-1.3) Estimated GFR (Cockcroft-Gault) 23.6 BUN/Creatinine Ratio 18 (6-20) Glucose Level 190 mg/dL (70-99) Calcium Level 7.5 mg/dL (8.5-10.1) Total Bilirubin 0.5 mg/dL (0.2-1.0) Aspartate Amino Transf (AST/SGOT) 20 U/L (15-37) Alanine Aminotransferase (ALT/SGPT) 61 U/L (16-63) Alkaline Phosphatase 30 U/L (46-116) Creatine Kinase 170 U/L (39-308) Total Protein 5.2 g/dL (6.4-8.2) Albumin 2.5 g/dL (3.4-5.0) Albumin/Globulin Ratio 0.9 (1.0-1.7) Laboratory Tests Test 05/09/20 12:49 05/10/20 04:45 05/10/20 07:45 Glucose (Fingerstick) 270 mg/dL (70-99) White Blood Count 11.2 x10^3/uL (4.0-11.0) Red Blood Count 5.95 x10^6/uL (4.30-5.70) Hemoglobin 13.9 g/dL (13.0-17.5) Hematocrit 44.5 % (39.0-53.0) Mean Corpuscular Volume 75 fL (79-100) Mean Corpuscular Hemoglobin 23 pg (25-35) Mean Corpuscular Hemoglobin Concent 31 g/dL (31-37) Red Cell Distribution Width 17.0 % (11.5-14.5) Platelet Count 199 x10^3/uL (140-400) Neutrophils (%) (Auto) 93 % (31-73) Lymphocytes (%) (Auto) 4 % (24-48) Monocytes (%) (Auto) 3 % (0-9) Eosinophils (%) (Auto) 0 % (0-3) Basophils (%) (Auto) 0 % (0-3) Neutrophils # (Auto) 10.4 x10^3/uL (1.8-7.7) Lymphocytes # (Auto) 0.5 x10^3/uL (1.0-4.8) Monocytes # (Auto) 0.3 x10^3/uL (0.0-1.1) Eosinophils # (Auto) 0.0 x10^3/uL (0.0-0.7) Basophils # (Auto) 0.0 x10^3/uL (0.0-0.2) Sodium Level 139 mmol/L (136-145) Potassium Level 4.8 mmol/L (3.5-5.1) Chloride Level 103 mmol/L (98-107) Carbon Dioxide Level 26 mmol/L (21-32) Anion Gap 10 (6-14) Blood Urea Nitrogen 61 mg/dL (8-26) Creatinine 3.3 mg/dL (0.7-1.3) Estimated GFR (Cockcroft-Gault) 23.6 BUN/Creatinine Ratio 18 (6-20) Glucose Level 190 mg/dL (70-99) Calcium Level 7.5 mg/dL (8.5-10.1) Total Bilirubin 0.5 mg/dL (0.2-1.0) Aspartate Amino Transf (AST/SGOT) 20 U/L (15-37) Alanine Aminotransferase (ALT/SGPT) 61 U/L (16-63) Alkaline Phosphatase 30 U/L (46-116) Creatine Kinase 170 U/L (39-308) Total Protein 5.2 g/dL (6.4-8.2) Albumin 2.5 g/dL (3.4-5.0) Albumin/Globulin Ratio 0.9 (1.0-1.7) O2 Saturation 89 % (92-99) Arterial Blood pH 7.33 (7.35-7.45) Arterial Blood pCO2 at Patient Temp 49 mmHg (35-46) Arterial Blood pO2 at Patient Temp 65 mmHg (75-108) Arterial Blood HCO3 25 mmol/L (21-28) Arterial Blood Base Excess -1 mmol/L (-3-3) FiO2 70 Microbiology 05/08/20 Blood Culture - Preliminary, Resulted NO GROWTH AFTER 1 DAY Medications Current Medications Propofol 50 ml @ As Directed STK-MED ONCE IV ; Start 05/08/20 at 07:33; Stop 05/08/20 at 07:33; Status DC Propofol 100 ml @ 0 mls/hr CONT PRN IV SEE PROTOCOL Last administered on 05/10/20at 09:03; Start 05/08/20 at 07:45 Fentanyl Citrate (Fentanyl 2ml Vial) 50 mcg PRN Q1HR PRN IV SEE COMMENTS Last administered on 05/08/20at 12:44; Start 05/08/20 at 07:45 Chlorhexidine Gluconate (Peridex) 15 ml BID MM Last administered on 05/10/20at 08:32; Start 05/08/20 at 09:00 Etomidate (Amidate) 20 mg 1X ONCE IV Last administered on 05/08/20at 07:30; Start 05/08/20 at 07:45; Stop 05/08/20 at 09:04; Status DC Succinylcholine Chloride (Anectine) 100 mg 1X ONCE IV Last administered on 05/08/20at 07:31; Start 05/08/20 at 07:45; Stop 05/08/20 at 09:04; Status DC Albuterol/ Ipratropium (Duoneb) 6 ml 1X ONCE NEB ; Start 05/08/20 at 07:45; Stop 05/08/20 at 09:04; Status DC Methylprednisolone Sodium Succinate (SOLU-Medrol 125MG VIAL) 125 mg 1X ONCE IV Last administered on 05/08/20at 08:31; Start 05/08/20 at 07:45; Stop 05/08/20 at 09:04; Status DC Albuterol Sulfate (Ventolin Neb Soln) 2.5 mg 1X ONCE NEB ; Start 05/08/20 at 07:45; Stop 05/08/20 at 08:56; Status DC Ceftriaxone Sodium (Rocephin) 1 gm 1X ONCE IVP Last administered on 05/08/20at 08:31; Start 05/08/20 at 07:45; Stop 05/08/20 at 09:04; Status DC Propofol (Diprivan) 40 mg 1X ONCE IV ; Start 05/08/20 at 08:00; Stop 05/08/20 at 09:04; Status DC Fentanyl Citrate 30 ml @ 0 mls/hr CONT PRN IV SEE PROTOCOL Last administered on 05/10/20at 09:04; Start 05/08/20 at 08:15 Midazolam HCl 100 ml @ 0 mls/hr CONT PRN IV SEE PROTOCOL Last administered on 05/10/20at 01:44; Start 05/08/20 at 08:15 Sodium Chloride 1,000 ml @ 1,000 mls/hr 1X ONCE IV Last administered on 05/08/20at 08:47; Start 05/08/20 at 08:30; Stop 05/08/20 at 09:29; Status DC Midazolam HCl (Versed) 5 mg 1X ONCE IV Last administered on 05/08/20at 08:33; Start 05/08/20 at 08:30; Stop 05/08/20 at 09:04; Status DC Ondansetron HCl (Zofran) 4 mg PRN Q8HRS PRN IV NAUSEA/VOMITING; Start 05/08/20 at 08:45; Stop 05/09/20 at 08:44; Status DC Aspirin (Aspirin Rectal Supp) 300 mg 1X ONCE GA Last administered on 05/08/20at 10:00; Start 05/08/20 at 08:45; Stop 05/08/20 at 09:04; Status DC Sodium Chloride (Normal Saline Flush) 3 ml QSHIFT PRN IV AFTER MEDS AND BLOOD DRAWS; Start 05/08/20 at 11:30; Stop 05/08/20 at 18:55; Status DC Sodium Chloride 1,000 ml @ 60 mls/hr [id number] IV Last administered on 05/08/20at 12:53; Start 05/08/20 at 11:24; Stop 05/08/20 at 18:55; Status DC Ondansetron HCl (Zofran) 4 mg PRN Q4HRS PRN IV NAUSEA/VOMITING; Start 05/08/20 at 11:30; Stop 05/08/20 at 18:55; Status DC Acetaminophen (Tylenol Supp) 650 mg PRN Q4HRS PRN GA TEMP OVER 100.4F OR MILD P AIN; Start 05/08/20 at 11:30; Stop 05/08/20 at 18:47; Status DC Sodium Monofluorophosphate (Fleet Adult) 133 ml PRN DAILY PRN GA CONSTIPATION; Start 05/08/20 at 11:30; Stop 05/08/20 at 18:55; Status DC Albuterol/ Ipratropium (Duoneb) 3 ml Q4H NEB ; Start 05/08/20 at 11:30; Stop 05/08/20 at 15:37; Status DC Enoxaparin Sodium (Lovenox 40mg Syringe) 40 mg DAILY SQ ; Start 05/09/20 at 09:00; Stop 05/08/20 at 18:54; Status DC Pantoprazole Sodium (PROTONIX VIAL for IV PUSH) 40 mg DAILYAC IVP Last administered on 05/10/20at 08:21; Start 05/08/20 at 11:30 Etomidate (Amidate) 40 mg 1X ONCE IV Last administered on 05/08/20at 07:57; Start 05/08/20 at 07:55; Stop 05/08/20 at 12:05; Status DC Methylprednisolone Sodium Succinate (SOLU-Medrol 125MG VIAL) 60 mg Q8HRS IV Last administered on 05/10/20at 06:11; Start 05/08/20 at 14:00 Midazolam HCl (Versed) 5 mg PRN Q15MIN PRN IV SEDATION Last administered on 05/08/20at 12:32; Start 05/08/20 at 08:00 Enoxaparin Sodium (Lovenox Per Pharmacy Prophylaxis Dosing) 1 each PRN DAILY PRN MC SEE COMMENTS; Start 05/08/20 at 16:00; Stop 05/10/20 at 09:14; Status DC Sodium Chloride (Normal Saline Flush) 3 ml QSHIFT PRN IV AFTER MEDS AND BLOOD DRAWS; Start 05/08/20 at 16:15 Sodium Chloride 1,000 ml @ 80 mls/hr [id number] IV Last administered on 05/10/20at 03:23; Start 05/08/20 at 16:01 Ondansetron HCl (Zofran) 4 mg PRN Q4HRS PRN IV NAUSEA/VOMITING; Start 05/08/20 at 16:15 Acetaminophen (Tylenol Supp) 650 mg PRN Q4HRS PRN GA TEMP OVER 100.4F OR MILD PAIN; Start 05/08/20 at 16:15 Sodium Monofluorophosphate (Fleet Adult) 133 ml PRN DAILY PRN GA CONSTIPATION; Start 05/08/20 at 16:15 Albuterol/ Ipratropium (Duoneb) 3 ml Q4H NEB ; Start 05/08/20 at 16:15; Stop 05/08/20 at 18:45; Status DC Enoxaparin Sodium (Lovenox 40mg Syringe) 40 mg Q24H SQ Last administered on 05/09/20at 17:04; Start 05/08/20 at 17:00; Stop 05/10/20 at 09:14; Status DC Ceftriaxone Sodium (Rocephin) 1 gm Q24H IVP Last administered on 05/10/20at 08:32; Start 05/09/20 at 08:00 Aspirin (Aspirin Chewable) 81 mg DAILYWBKFT PO ; Start 05/08/20 at 17:30; Stop 05/08/20 at 17:27; Status DC Aspirin (Aspirin Chewable) 81 mg DAILYWBKFT PO Last administered on 05/10/20at 08:32; Start 05/09/20 at 08:00 Albuterol Sulfate (Ventolin Neb Soln) 2.5 mg PRN Q4HRS PRN NEB SHORTNESS OF BREATH; Start 05/08/20 at 19:00 Amlodipine Besylate (Norvasc) 10 mg 1X ONCE PO Last administered on 05/09/20at 14:31; Start 05/09/20 at 14:30; Stop 05/09/20 at 14:31; Status DC Clonidine HCl (Catapres) 0.1 mg PRN Q2HR PRN PO HYPERTENSION; Start 05/09/20 at 14:30 Enoxaparin Sodium (Lovenox Per Pharmacy Treatment Dosing) 1 each PRN DAILY PRN MC SEE COMMENTS; Start 05/10/20 at 09:30 Enoxaparin Sodium (Lovenox 120mg Syringe) 120 mg DAILY SQ ; Start 05/10/20 at 10:00 Active Scripts Active Reported [amlodipine benazep] Unknown Dose PO Proventil Hfa (Albuterol Sulfate) 6.7 Gm Hfa.aer.ad 1 Puff INH PRN Q6HRS PRN Advair 100-50 Diskus (Fluticasone/Salmeterol) 1 Each Disk.w.dev 1 Puff IH BID Vitals/I & O Vital Sign - Last 24 Hours 05/09/20 05/09/20 05/09/20 05/09/20 10:00 11:00 11:43 11:49 Pulse 77 76 Resp 20 20 20 B/P (MAP) 153/113 (126) 148/105 (119) Pulse Ox 97 98 97 97 O2 Delivery Ventilator Ventilator Ventilator Ventilator O2 Flow Rate 15.0 6/2305/09/20 05/09/20 05/09/20 12:00 12:00 12:18 13:00 Temp 98.2 98.2 Pulse 76 80 Resp 20 33 B/P (MAP) 154/100 (118) 161/110 (127) Pulse Ox 98 98 96 O2 Delivery Mechanical Ventilator Ventilator Ventilator Ventilator 05/09/20 05/09/20 05/09/20 05/09/20 13:58 14:00 14:31 15:00 Pulse 76 75 75 Resp 20 20 B/P (MAP) 147/106 (120) 147/106 144/105 (118) Pulse Ox 97 97 98 O2 Delivery Ventilator Ventilator Ventilator 05/09/20 05/09/20 05/09/20 05/09/20 15:25 16:00 16:00 17:00 Temp 98.0 98.0 Pulse 71 75 Resp 19 19 B/P (MAP) 155/98 (117) 123/78 (93) Pulse Ox 97 97 98 O2 Delivery Ventilator Ventilator Mechanical Ventilator Ventilator 05/09/20 05/09/20 05/09/20 05/09/20 17:47 18:00 19:00 19:55 Pulse 80 75 Resp 20 19 B/P (MAP) 125/79 (94) 134/83 (100) Pulse Ox 97 97 98 98 O2 Delivery Ventilator Ventilator Ventilator Ventilator 05/09/20 05/09/20 05/09/20 05/09/20 20:00 20:03 21:00 22:00 Temp 97.8 97.8 Pulse 75 80 76 Resp 20 20 20 B/P (MAP) 135/80 (98) 155/104 (121) 122/73 (89) Pulse Ox 98 98 98 O2 Delivery Mechanical Ventilator Ventilator Ventilator Ventilator 05/09/20 05/09/20 05/09/20 05/10/20 23:00 23:35 23:43 00:00 Temp 98.5 98.5 Pulse 72 70 Resp 19 19 19 B/P (MAP) 124/81 (95) 135/87 (103) Pulse Ox 98 98 96 98 O2 Delivery Ventilator Ventilator Ventilator 05/10/20 05/10/20 05/10/20 05/10/20 00:00 00:05 01:00 02:00 Pulse 71 73 Resp 19 19 19 B/P (MAP) 131/86 (101) 132/82 (99) Pulse Ox 98 95 95 O2 Delivery Mechanical Ventilator Ventilator Ventilator Ventilator 05/10/20 05/10/20 05/10/20 05/10/20 03:00 04:00 04:00 04:05 Temp 98.6 98.6 Pulse 70 71 Resp 20 19 B/P (MAP) 131/87 (102) 131/87 (102) Pulse Ox 98 93 96 O2 Delivery Ventilator Mechanical Ventilator Ventilator Ventilator 05/10/20 05/10/20 05/10/20 05/10/20 05:00 06:00 07:00 07:33 Pulse 75 72 75 Resp 20 19 19 B/P (MAP) 125/92 (103) 134/92 (106) 125/87 (100) Pulse Ox 98 98 92 93 O2 Delivery Ventilator Ventilator Ventilator Ventilator 05/10/20 05/10/20 05/10/20 08:00 08:00 09:00 Temp 97.9 97.9 Pulse 72 70 Resp 20 22 B/P (MAP) 125/82 (96) 113/81 (92) Pulse Ox 93 95 O2 Delivery Ventilator Mechanical Ventilator Ventilator Intake and Output 05/09/20 05/09/20 05/10/20 15:00 23:00 07:00 Intake Total 100 ml 2285.2 ml 262 ml Output Total 182 ml 380 ml 250 ml Balance -82 ml 1905.2 ml 12 ml CLARK MCMANUS MD May 10, 2020 09:49
--- NOTE | 2020-05-10 10:12 | CARD ---
MR#: [id number] Date of Study: 05/10/2020 Ordering Physician: CLARK MCMANUS, Referring Physician: CLARK MCMANUS, Tech: Gini Teresa APPROVED REPORT EXAM: Two-dimensional and M-mode echocardiogram with Doppler and color Doppler. Other Information Quality : AverageHR: 73bpm INDICATION COPD Status/Post NH 2D DIMENSIONS RVDd4.2 (2.9-3.5cm)Left Atrium(2D)3.6 (1.6-4.0cm) IVSd1.2 (0.7-1.1cm)Aortic Root(2D)3.8 (2.0-3.7cm) LVDd5.0 (3.9-5.9cm)LVOT Diameter2.2 (1.8-2.4cm) PWd1.3 (0.7-1.1cm)LVDs4.0 (2.5-4.0cm) FS (%) 18.3 %SV43.7 ml LVEF(%)37.8 (>50%) Aortic Valve AoV Peak Kaveh.126.6cm/sAoV VTI22.3cm AO Peak GR.6.4mmHgLVOT VTI 12.25cm AO Mean GR.3mmHg Mitral Valve MV E Vpdvblkh04.0cm/sMV E Peak Gr.1mmHg MV DECEL [id number] A Obqcjpee32.2cm/s MV E Mean Gr.1mmHgE/A Ratio1.1 TDI Lateral E' P. V6.05cm/sMedial E' P. V4.89cm/s E/Lateral E'7.8E/Medial E'9.6 Tricuspid Valve TR P. [id number]/sRAP [id number] TR Peak Gr.[id number] LEFT VENTRICLE The left ventricle is normal size. There is mild left ventricular hypertrophy. The left ventricular s ystolic function is mildly impaired. The Ejection Fraction is 45%. There is global hypokinesis of the left ventricle. RIGHT VENTRICLE The right ventricle is mildly dilated. There is normal right ventricular wall thickness. Systolic fun ction is borderline reduced. ATRIA The left atrium is borderline dilated. The right atrium is moderately dilated. The interatrial septum is intact with no evidence for an atrial septal defect or patent foramen ovale as noted on 2-D or Do ppler imaging. AORTIC VALVE The aortic valve is normal in structure and function. Doppler and Color Flow revealed no significant aortic regurgitation. There is no significant aortic valvular stenosis. MITRAL VALVE The mitral valve is normal in structure and function. There is no evidence of mitral valve prolapse. There is no mitral valve stenosis. Doppler and Color Flow revealed no mitral valve regurgitation note d. TRICUSPID VALVE The tricuspid valve is normal in structure and function. Doppler and Color Flow revealed trace tricus pid regurgitation with an estimated PAP of 54 mmHg. There is no tricuspid valve stenosis. PULMONIC VALVE The pulmonic valve is not well visualized. Doppler and Color Flow revealed no pulmonic valvular regur gitation. GREAT VESSELS The aortic root is normal in size. The IVC is dilated and collapses <50% with inspiration. PERICARDIAL EFFUSION There is no evidence of significant pericardial effusion. Critical Notification Critical Value: No <Conclusion> The left ventricular systolic function is mildly impaired. The Ejection Fraction is 45%. Trace tricuspid regurgitation with an estimated PAP of 54 mmHg. There is no evidence of significant pericardial effusion. Signed by : Reinier Girard, Electronically Approved : 05/10/2020 10:11:44
--- NOTE | 2020-05-10 10:53 | PDOC ---
BLAINE KEENE TEST BAKER 05/10/20 1053: CARDIO Progress Notes Date and Time Date of Service 05/10/2020 Time of Evaluation 1030 Subjective Subjective: Other (intubated) Vitals Vitals Vital Signs Date Time Temp Pulse Resp B/P (MAP) Pulse Ox O2 Delivery O2 Flow Rate FiO2 05/10/20 10:00 73 22 121/82 (95) 95 Ventilator 05/10/20 08:00 97.9 97.9 05/09/20 11:49 15.0 Weight Weight [ ] Input and Output Intake and Output Intake and Output 05/10/20 07:00 Intake Total 2647.2 ml Output Total 812 ml Balance 1835.2 ml Intake IV Total 2083.2 ml Tube Feeding 564 ml Output Urine Total 812 ml Laboratory Labs Laboratory Tests Test 05/09/20 12:49 05/10/20 04:45 05/10/20 07:45 Glucose (Fingerstick) 270 mg/dL (70-99) White Blood Count 11.2 x10^3/uL (4.0-11.0) Red Blood Count 5.95 x10^6/uL (4.30-5.70) Hemoglobin 13.9 g/dL (13.0-17.5) Hematocrit 44.5 % (39.0-53.0) Mean Corpuscular Volume 75 fL (79-100) Mean Corpuscular Hemoglobin 23 pg (25-35) Mean Corpuscular Hemoglobin Concent 31 g/dL (31-37) Red Cell Distribution Width 17.0 % (11.5-14.5) Platelet Count 199 x10^3/uL (140-400) Neutrophils (%) (Auto) 93 % (31-73) Lymphocytes (%) (Auto) 4 % (24-48) Monocytes (%) (Auto) 3 % (0-9) Eosinophils (%) (Auto) 0 % (0-3) Basophils (%) (Auto) 0 % (0-3) Neutrophils # (Auto) 10.4 x10^3/uL (1.8-7.7) Lymphocytes # (Auto) 0.5 x10^3/uL (1.0-4.8) Monocytes # (Auto) 0.3 x10^3/uL (0.0-1.1) Eosinophils # (Auto) 0.0 x10^3/uL (0.0-0.7) Basophils # (Auto) 0.0 x10^3/uL (0.0-0.2) Sodium Level 139 mmol/L (136-145) Potassium Level 4.8 mmol/L (3.5-5.1) Chloride Level 103 mmol/L (98-107) Carbon Dioxide Level 26 mmol/L (21-32) Anion Gap 10 (6-14) Blood Urea Nitrogen 61 mg/dL (8-26) Creatinine 3.3 mg/dL (0.7-1.3) Estimated GFR (Cockcroft-Gault) 23.6 BUN/Creatinine Ratio 18 (6-20) Glucose Level 190 mg/dL (70-99) Calcium Level 7.5 mg/dL (8.5-10.1) Total Bilirubin 0.5 mg/dL (0.2-1.0) Aspartate Amino Transf (AST/SGOT) 20 U/L (15-37) Alanine Aminotransferase (ALT/SGPT) 61 U/L (16-63) Alkaline Phosphatase 30 U/L (46-116) Creatine Kinase 170 U/L (39-308) Total Protein 5.2 g/dL (6.4-8.2) Albumin 2.5 g/dL (3.4-5.0) Albumin/Globulin Ratio 0.9 (1.0-1.7) O2 Saturation 89 % (92-99) Arterial Blood pH 7.33 (7.35-7.45) Arterial Blood pCO2 at Patient Temp 49 mmHg (35-46) Arterial Blood pO2 at Patient Temp 65 mmHg (75-108) Arterial Blood HCO3 25 mmol/L (21-28) Arterial Blood Base Excess -1 mmol/L (-3-3) FiO2 70 Microbiology Micro Microbiology 05/08/20 Blood Culture - Preliminary, Resulted NO GROWTH AFTER 1 DAY Physical Exam Chest: Symmetric LUNGS: Other (intubated) Heart: RRR Abdomen: Other (obese) Neurology: other (sedated) Assessment Assessment 1. Acute on chronic respiratory failure with AECOPD and acute CHF. s/p intubation. COVID negative. Still hypoxic. PE/RV ischemia part of the differential 2. NSTEMI; highest trop 1.6.likely demand mediated with above. No significant arrhythmias 3. EVY likely on CKD: unknown baseline, worsening Cr, nephrology following 4. Mild transaminitis 5. Leukocytosis 6. DM2: A1C 6.7. NEW? per PCP 7. Substance abuse; UDS + cocaine 8. Probable CONNER 9. Mild Cardiomyopathy: EF at 45% Recommendations 1. ASA. Avoid nephrotoxins. May start home norvasc if BP becomes labile. Clonidine PRN. Consider BB moving forward with cocaine cessation counseling 2. EF nml and noted with RV dilation per TTE. Awaiting venous doppler. Empiric lovenox in place will DC due to severe EVY and will initiate heparin tomorrow as lovenox has been received. 3. Will review records from [facility] in [place], [place]. when available 4. Consider further ischemic evaluation pending clinical course 5. Follow pulm recs 6. Supportive care. Justicifation of Admission Dx: Justifications for Admission: Justification of Admission Dx: Yes CHF: Hemodynamic Instability Respiratory Failure: Mechanical Ventilation Acute COPD Exacerbation: Acute COPD Exacerbation Altered Mental Status: Altered Mental Status TINY MARSHALL MD 05/10/20 1836: CARDIO Progress Notes Plan Plan Pt. seen and examined. Agree with above ROTOR PLATE WASHER Note. Discussed with at bedside. Acute on chronic hypoxic resp failure. Echo with mild LV dysfunction. Mild RV dilation, lower suspicion for massive PE NSTEMI - likely demand mediated. EVY Given current EVY, no clear EKG changes and positive cocaine, would defer cardiac catheterization as risks outweight benefits. Agree with empiric heparinization for possible P.E per pulmonary. Continue asa for elevated troponin. Supportive care. Thanks BLAINE KEENE APRN May 10, 2020 10:53 TINY MARSHALL MD May 10, 2020 18:36
[2020-05-10] MEDS ORDERED: HEPARIN for IV BOLUS 10,000 UNIT/10 ML VIAL. IV PRN (11:00)
[2020-05-10] MEDS ORDERED: HEPARIN 25,000UTS/250ML PREMIX 250 ML IV PRN (11:00)
--- NOTE | 2020-05-10 12:36 | NUR ---
Notified Dr. Metz of ABG results this am, order received to change ventilator settings. Extensive discussion with patient's son, Alpesh Ch, regarding ventilator changes, Covid test results, and POC. Asked patient's and son to give consent to a central line, patient's son would prefer a PICC line instead, will ask nephrology. Dr. Metz changed lovenox order to weight based for potential PE, dose given. When cardiology SENIOR SERVICE AIDE rounded, the order was changed to a heparin gtt. Per pharmacy, the heparin gtt needs to wait until 24 hours post lovenox dose before initiation, notified SENIOR SERVICE AIDE.
--- NOTE | 2020-05-10 13:45 | PDOC ---
Renal-Progress Notes Subjective Notes Notes REMAINS INTUBATED History of Present Illness Hx of present illness NO CHANGES Vitals Vitals Vital Signs Date Time Temp Pulse Resp B/P (MAP) Pulse Ox O2 Delivery O2 Flow Rate FiO2 05/10/20 13:00 75 21 120/69 (86) 94 Ventilator 05/10/20 12:00 97.9 97.9 05/09/20 11:49 15.0 Weight Weight [ ] I.O. Intake and Output Intake and Output 05/10/20 07:00 Intake Total 2647.2 ml Output Total 812 ml Balance 1835.2 ml Intake IV Total 2083.2 ml Tube Feeding 564 ml Output Urine Total 812 ml Labs Labs Laboratory Tests Test 05/10/20 04:45 05/10/20 07:45 White Blood Count 11.2 x10^3/uL (4.0-11.0) Red Blood Count 5.95 x10^6/uL (4.30-5.70) Hemoglobin 13.9 g/dL (13.0-17.5) Hematocrit 44.5 % (39.0-53.0) Mean Corpuscular Volume 75 fL (79-100) Mean Corpuscular Hemoglobin 23 pg (25-35) Mean Corpuscular Hemoglobin Concent 31 g/dL (31-37) Red Cell Distribution Width 17.0 % (11.5-14.5) Platelet Count 199 x10^3/uL (140-400) Neutrophils (%) (Auto) 93 % (31-73) Lymphocytes (%) (Auto) 4 % (24-48) Monocytes (%) (Auto) 3 % (0-9) Eosinophils (%) (Auto) 0 % (0-3) Basophils (%) (Auto) 0 % (0-3) Neutrophils # (Auto) 10.4 x10^3/uL (1.8-7.7) Lymphocytes # (Auto) 0.5 x10^3/uL (1.0-4.8) Monocytes # (Auto) 0.3 x10^3/uL (0.0-1.1) Eosinophils # (Auto) 0.0 x10^3/uL (0.0-0.7) Basophils # (Auto) 0.0 x10^3/uL (0.0-0.2) Sodium Level 139 mmol/L (136-145) Potassium Level 4.8 mmol/L (3.5-5.1) Chloride Level 103 mmol/L (98-107) Carbon Dioxide Level 26 mmol/L (21-32) Anion Gap 10 (6-14) Blood Urea Nitrogen 61 mg/dL (8-26) Creatinine 3.3 mg/dL (0.7-1.3) Estimated GFR (Cockcroft-Gault) 23.6 BUN/Creatinine Ratio 18 (6-20) Glucose Level 190 mg/dL (70-99) Calcium Level 7.5 mg/dL (8.5-10.1) Total Bilirubin 0.5 mg/dL (0.2-1.0) Aspartate Amino Transf (AST/SGOT) 20 U/L (15-37) Alanine Aminotransferase (ALT/SGPT) 61 U/L (16-63) Alkaline Phosphatase 30 U/L (46-116) Creatine Kinase 170 U/L (39-308) Total Protein 5.2 g/dL (6.4-8.2) Albumin 2.5 g/dL (3.4-5.0) Albumin/Globulin Ratio 0.9 (1.0-1.7) O2 Saturation 89 % (92-99) Arterial Blood pH 7.33 (7.35-7.45) Arterial Blood pCO2 at Patient Temp 49 mmHg (35-46) Arterial Blood pO2 at Patient Temp 65 mmHg (75-108) Arterial Blood HCO3 25 mmol/L (21-28) Arterial Blood Base Excess -1 mmol/L (-3-3) FiO2 70 Micro Micro Microbiology 05/08/20 Blood Culture - Preliminary, Resulted NO GROWTH AFTER 1 DAY Review of Systems Constitutional: yes: other (ON THE VENT SEDATED) Physical Exam General Appearance: no apparent distress Skin: warm Respiratory: decreased breath sounds Heart: S1S2 Abdomen: soft, bowel sounds present Genitourinary: bladder flat Extremities: pulses present Neurology: other (sedated) Assessment Assessment IMP EVY WITH CR WORSE UP TO 3.3 AND DECREASED UO POSSIBLE RHABDOMYOLYSIS-CK OF 441 ACUTE ON CHRONIC HYPERCARBIC HYPOXIC RESP FAILURE-FIO2 OF 70% SUBSTANCE ABUSE-COCAINE LEUCOCYTOSIS-PROB REACTIVE NSTEMI HYPERGLYCEMIA HTN PLAN COVID 19 NEG VENT SUPPORT INCREASE SALINE HYDRATION ? PE START TF F/U CPK LEVEL CARDIOLOGY AND PULM EVAL MAY NEED HD WILL FOLLOW CLOVER REID MD May 10, 2020 13:45
--- NOTE | 2020-05-10 14:09 | RAD ---
EXAM: Bilateral lower extremity venous Doppler. HISTORY: Bilateral lower extremity pain/swelling. Pulmonary embolism. COMPARISON: None. FINDINGS: Grayscale and Doppler analysis of the both lower extremity deep venous systems was performed with graded compression and augmentation. The common femoral, greater saphenous, superficial femoral, popliteal and calf veins were assessed. There is no evidence of deep venous thrombosis. IMPRESSION: 1. No evidence of deep venous thrombosis. Electronically signed by: Cachorro Diamond MD (05/10/2020 2:06 PM) [id number]
--- NOTE | 2020-05-10 14:35 | NUR ---
SS following up with discharge planning. SS reviewed pt chart and discussed with pt RN. Pt COVID19 negative. Pt remains on the vent at this time. Pt on IV Rocephin. SS will continue to follow for discharge planning.
[2020-05-10] MEDS: POLYETHYLENE GLYCOL 3350 17 GM PACKET. PO PRN (17:29)
--- NOTE | 2020-05-10 21:30 | NUR ---
Minimal output since 1699. Townsend placement verified. Flushed townsend with 10cc of NS, received large amount of thick yellow sediment and received 350cc of urine immediately.
[2020-05-11] VITALS (24 sets, daily range): BP systolic 106–159; BP diastolic 55–97
[2020-05-11] MEDS: PROPOFOL 100 ML IV PRN ×2 (01:29→05:46)
[2020-05-11] MEDS: IV NORMAL SALINE 1000ML BAG 1,000 ML IV SCH ×3 (05:45→21:52)
[2020-05-11] MEDS: methylPREDNISolone SOD SUCC PF 125 MG/2 ML VIAL. IV SCH ×3 (05:46→21:52)
[2020-05-11 06:01] LABS: BASO % 0 % (0-3); EOS % 0 % (0-3); HEMATOCRIT 44.3 % (39.0-53.0); HEMOGLOBIN 13.6 g/dL (13.0-17.5); LYMPH # 0.5 x10^3/uL (1.0-4.8); LYMPH % 5 % (24-48); MEAN CORPUSCULAR HEMOGLOBIN 23 pg (25-35); MEAN CORPUSCULAR HGB CONC 31 g/dL (31-37); MEAN CORPUSCULAR VOLUME 75 fL (79-100); MONO # 0.2 x10^3/uL (0.0-1.1); MONO % 2 % (0-9); NEUT % 93 % (31-73); PLATELET COUNT 174 x10^3/uL (140-400); RED BLOOD COUNT 5.88 x10^6/uL (4.30-5.70); RED CELL DISTRIBUTION WIDTH 17.8 % (11.5-14.5); WHITE BLOOD COUNT 10.7 x10^3/uL (4.0-11.0)
[2020-05-11 06:25] LABS: ALBUMIN 2.4 g/dL (3.4-5.0); ALBUMIN/GLOBULIN RATIO 1.1 (1.0-1.7); CALCIUM 7.6 mg/dL (8.5-10.1); CREATININE 3.4 mg/dL (0.7-1.3); GFR 22.8; POTASSIUM 5.5 mmol/L (3.5-5.1); TOTAL BILIRUBIN 0.3 mg/dL (0.2-1.0); TOTAL PROTEIN 4.6 g/dL (6.4-8.2)
[2020-05-11 08:09] LABS: BASE EXCESS ABG -5 mmol/L (-3-3); FIO2 ABG 75; HCO3 ABG 20 mmol/L (21-28); PCO2 ABG 37 mmHg (35-46); PO2 ABG 70 mmHg (75-108); SAT O2 ABG 93 % (92-99)
[2020-05-11] MEDS: MIDAZOLAM 100mg/100ml NS BAG 100 ML IV PRN (09:06)
--- NOTE | 2020-05-11 09:28 | PDOC ---
BLAINE KEENE TELEPHONE MECHANIC 05/11/20 0928: CARDIO Progress Notes Date and Time Date of Service 05/11/2020 Time of Evaluation 0915 Subjective Subjective: Other (intubated) Vitals Vitals Vital Signs Date Time Temp Pulse Resp B/P (MAP) Pulse Ox O2 Delivery O2 Flow Rate FiO2 05/11/20 07:45 96 Ventilator 05/11/20 06:05 60 22 125/75 (92) 05/11/20 04:00 97.7 97.7 Weight Weight [ ] Input and Output Intake and Output Intake and Output 05/11/20 07:00 Intake Total 6721.5 ml Output Total 2215 ml Balance 4506.5 ml Intake IV Total 4670.5 ml Tube Feeding 1751 ml Other 300 ml Output Urine Total 2215 ml Laboratory Labs Laboratory Tests Test 05/11/20 05:52 05/11/20 08:00 White Blood Count 10.7 x10^3/uL (4.0-11.0) Red Blood Count 5.88 x10^6/uL (4.30-5.70) Hemoglobin 13.6 g/dL (13.0-17.5) Hematocrit 44.3 % (39.0-53.0) Mean Corpuscular Volume 75 fL (79-100) Mean Corpuscular Hemoglobin 23 pg (25-35) Mean Corpuscular Hemoglobin Concent 31 g/dL (31-37) Red Cell Distribution Width 17.8 % (11.5-14.5) Platelet Count 174 x10^3/uL (140-400) Neutrophils (%) (Auto) 93 % (31-73) Lymphocytes (%) (Auto) 5 % (24-48) Monocytes (%) (Auto) 2 % (0-9) Eosinophils (%) (Auto) 0 % (0-3) Basophils (%) (Auto) 0 % (0-3) Neutrophils # (Auto) 10.0 x10^3/uL (1.8-7.7) Lymphocytes # (Auto) 0.5 x10^3/uL (1.0-4.8) Monocytes # (Auto) 0.2 x10^3/uL (0.0-1.1) Eosinophils # (Auto) 0.0 x10^3/uL (0.0-0.7) Basophils # (Auto) 0.0 x10^3/uL (0.0-0.2) Sodium Level 141 mmol/L (136-145) Potassium Level 5.5 mmol/L (3.5-5.1) Chloride Level 107 mmol/L (98-107) Carbon Dioxide Level 23 mmol/L (21-32) Anion Gap 11 (6-14) Blood Urea Nitrogen 72 mg/dL (8-26) Creatinine 3.4 mg/dL (0.7-1.3) Estimated GFR (Cockcroft-Gault) 22.8 BUN/Creatinine Ratio 21 (6-20) Glucose Level 240 mg/dL (70-99) Calcium Level 7.6 mg/dL (8.5-10.1) Total Bilirubin 0.3 mg/dL (0.2-1.0) Aspartate Amino Transf (AST/SGOT) 11 U/L (15-37) Alanine Aminotransferase (ALT/SGPT) 41 U/L (16-63) Alkaline Phosphatase 31 U/L (46-116) Total Protein 4.6 g/dL (6.4-8.2) Albumin 2.4 g/dL (3.4-5.0) Albumin/Globulin Ratio 1.1 (1.0-1.7) O2 Saturation 93 % (92-99) Arterial Blood pH 7.35 (7.35-7.45) Arterial Blood pCO2 at Patient Temp 37 mmHg (35-46) Arterial Blood pO2 at Patient Temp 70 mmHg (75-108) Arterial Blood HCO3 20 mmol/L (21-28) Arterial Blood Base Excess -5 mmol/L (-3-3) FiO2 75 Microbiology Micro Microbiology 05/08/20 Blood Culture - Preliminary, Resulted NO GROWTH AFTER 2 DAYS Review of Systems Constitutional: yes: other (ON THE VENT SEDATED) Physical Exam Chest: Symmetric LUNGS: Other (intubated) Heart: RRR (SR) Abdomen: Other (obese) Neurology: other (sedated) Assessment Assessment 1. Acute on chronic respiratory failure with AECOPD and acute CHF. s/p intubation. COVID negative. Still hypoxic. PE/RV ischemia part of the differential 2. NSTEMI; highest trop 1.6.likely demand mediated with above. No significant arrhythmias 3. EVY: baseline Cr at 1.2 05/03/2020. Cr 3.4. no improvement. nephrology following 4. Mild transaminitis 5. Leukocytosis 6. DM2: A1C 6.7. NEW? per PCP 7. Substance abuse; UDS + cocaine 8. Probable CONNER 9. Mild Cardiomyopathy: EF at 45% Recommendations 1. ASA. Avoid nephrotoxins. May start home norvasc if BP becomes labile. Clonidine PRN. Consider BB moving forward with cocaine cessation counseling 2. Neg for DVT. Needing HD. Empiric heparin for possible PE once HD cath is placed 3. Will review records from [facility] in [facility] [place]. when available. Limited records so far. 4. Consider further ischemic evaluation pending clinical course 5. Follow pulm recs 6. Discussed with RN as is wanting pt to transfer to [facility], defer to PCP Justicifation of Admission Dx: Justifications for Admission: Justification of Admission Dx: Yes CHF: Hemodynamic Instability Respiratory Failure: Mechanical Ventilation Acute COPD Exacerbation: Acute COPD Exacerbation Altered Mental Status: Altered Mental Status TINY MARSHALL MD 05/11/20 1418: CARDIO Progress Notes Plan Plan Pt. seen and examined. Agree with above ROLL HAND note. Stable from CV standpoint. No significant hemodynamic collapse. I had a long discussion with the patient's brother and patient's yesterday regarding the current issues. 1. Hypoxic resp failure likely related to primary pulmonary etiology. 2. Elevated troponin likely Type 2 with peak trop of only 1.6 in the setting of EVY and cocaine in U tox, although family is not sure that toxicology is accurate as they do not believe he did any drugs. 3. Mild cardiomyopathy - cannot rule out ischemic etiology but given EVY, poor candidate for invasive evaluation. 4. Currently on anticoagulation for possible PE, continue same, may need HD, ok to hold hep for HD cath placement. Continue aspirin daily. No CV contraindications for transfer. Will follow along while he is here, I think ultimately he does merit an ischemic evaluation with either a cath or stress test depending on the course of his renal failure. Awaiting OSH records. Thanks BLAINE KEENE APRN May 11, 2020 09:28 TINY MARSHALL MD May 11, 2020 14:18
--- NOTE | 2020-05-11 09:31 | PDOC ---
PROGRESS NOTES History of Present Illness History of Present Illness VTE Prophylaxis Ordered VTE Prophylaxis Devices: Yes VTE Pharmacological Prophylaxi: Yes Assessment/Plan Assessment/Plan Impression: Respiratory failure requiring vent support 75% fio2 COPD ACUTE HYPOXIC / HYPERCAPNIC RESP FAILURE Slight improvement with persistent basilar density bilaterally more on the left. CXR 05/10 Screen COVID-19 virus infection neg 05/09 NSTEMI (non-ST elevated myocardial infarction) COCAINE ABUSE, present on admit Morbid obesity EVY EVY Echogenic appearing bilateral kidneys probably medical renal disease., worse No evidence of hydronephrosis. Echo to assess LV systolic function pending negative COVID testing Will review records from [facility] in [place], [place]. when available Consider further ischemic evaluation pending course of hospitalization ADMITTED ICU BED PULM CONSULT AC mode, 70%FIO2 remains intubated/sedated CARDIOLOGY CONSULT VENT SUPPORT heparin drip GI PROPHYLAXIS ECHO TAPERING IV STEROIDS covid 19 screen Nephrology following cpk Echo to assess LV systolic function pending negative COVID testing review records from [facility] in [place], [place]. when available further ischemic evaluati on pending course of hospitalization picc 05/10 BB moving forward with cocaine cessation counseling guarded prognosis 05/11 EVY WORSE, planning dialysis cr 3.4 wt 121 kg , family request transfer to [facility] notified, pending 38 min cc time Justicifation of Admission Dx: Justicifation of Admission Dx: Justifications for Admission: Justification of Admission Dx: Yes CHF: Hemodynamic Instability Respiratory Failure: Mechanical Ventilation Acute COPD Exacerbation: Acute COPD Exacerbation Altered Mental Status: Altered Mental Status Vitals Vitals Vital Signs Date Time Temp Pulse Resp B/P (MAP) Pulse Ox O2 Delivery O2 Flow Rate FiO2 05/11/20 09:17 22 95 Ventilator 05/11/20 06:05 60 125/75 (92) 05/11/20 04:00 97.7 97.7 Physical Exam Physical Exam Heart: RRR Abdomen: obese Neurology: SEDATED General: No acute distress, Other (INTUBATED AND SEDATED) Heart: Regular rate, Normal S1, Normal S2 Lungs: Other (decrease bs) Abdomen: Normal bowel sounds, Soft, No tenderness Extremities: No clubbing, No cyanosis Skin: No breakdown, No significant lesion Labs LABS Laboratory Tests Test 05/11/20 05:52 05/11/20 08:00 White Blood Count 10.7 x10^3/uL (4.0-11.0) Red Blood Count 5.88 x10^6/uL (4.30-5.70) Hemoglobin 13.6 g/dL (13.0-17.5) Hematocrit 44.3 % (39.0-53.0) Mean Corpuscular Volume 75 fL (79-100) Mean Corpuscular Hemoglobin 23 pg (25-35) Mean Corpuscular Hemoglobin Concent 31 g/dL (31-37) Red Cell Distribution Width 17.8 % (11.5-14.5) Platelet Count 174 x10^3/uL (140-400) Neutrophils (%) (Auto) 93 % (31-73) Lymphocytes (%) (Auto) 5 % (24-48) Monocytes (%) (Auto) 2 % (0-9) Eosinophils (%) (Auto) 0 % (0-3) Basophils (%) (Auto) 0 % (0-3) Neutrophils # (Auto) 10.0 x10^3/uL (1.8-7.7) Lymphocytes # (Auto) 0.5 x10^3/uL (1.0-4.8) Monocytes # (Auto) 0.2 x10^3/uL (0.0-1.1) Eosinophils # (Auto) 0.0 x10^3/uL (0.0-0.7) Basophils # (Auto) 0.0 x10^3/uL (0.0-0.2) Sodium Level 141 mmol/L (136-145) Potassium Level 5.5 mmol/L (3.5-5.1) Chloride Level 107 mmol/L (98-107) Carbon Dioxide Level 23 mmol/L (21-32) Anion Gap 11 (6-14) Blood Urea Nitrogen 72 mg/dL (8-26) Creatinine 3.4 mg/dL (0.7-1.3) Estimated GFR (Cockcroft-Gault) 22.8 BUN/Creatinine Ratio 21 (6-20) Glucose Level 240 mg/dL (70-99) Calcium Level 7.6 mg/dL (8.5-10.1) Total Bilirubin 0.3 mg/dL (0.2-1.0) Aspartate Amino Transf (AST/SGOT) 11 U/L (15-37) Alanine Aminotransferase (ALT/SGPT) 41 U/L (16-63) Alkaline Phosphatase 31 U/L (46-116) Total Protein 4.6 g/dL (6.4-8.2) Albumin 2.4 g/dL (3.4-5.0) Albumin/Globulin Ratio 1.1 (1.0-1.7) O2 Saturation 93 % (92-99) Arterial Blood pH 7.35 (7.35-7.45) Arterial Blood pCO2 at Patient Temp 37 mmHg (35-46) Arterial Blood pO2 at Patient Temp 70 mmHg (75-108) Arterial Blood HCO3 20 mmol/L (21-28) Arterial Blood Base Excess -5 mmol/L (-3-3) FiO2 75 Assessment and Plan Assessmemt and Plan Problems Medical Problems: (1) Cocaine abuse Status: Acute (2) NSTEMI (non-ST elevated myocardial infarction) Status: Acute (3) Respiratory failure Status: Acute (4) Suspected COVID-19 virus infection Status: Acute Comment Review of Relevant I have reviewed the following items jeffrey (where applicable) has been applied. Labs Laboratory Tests Test 05/09/20 12:49 05/10/20 04:45 05/10/20 07:45 05/11/20 05:52 Glucose (Fingerstick) 270 mg/dL (70-99) White Blood Count 11.2 x10^3/uL (4.0-11.0) 10.7 x10^3/uL (4.0-11.0) Red Blood Count 5.95 x10^6/uL (4.30-5.70) 5.88 x10^6/uL (4.30-5.70) Hemoglobin 13.9 g/dL (13.0-17.5) 13.6 g/dL (13.0-17.5) Hematocrit 44.5 % (39.0-53.0) 44.3 % (39.0-53.0) Mean Corpuscular Volume 75 fL (79-100) 75 fL (79-100) Mean Corpuscular Hemoglobin 23 pg (25-35) 23 pg (25-35) Mean Corpuscular Hemoglobin Concent 31 g/dL (31-37) 31 g/dL (31-37) Red Cell Distribution Width 17.0 % (11.5-14.5) 17.8 % (11.5-14.5) Platelet Count 199 x10^3/uL (140-400) 174 x10^3/uL (140-400) Neutrophils (%) (Auto) 93 % (31-73) 93 % (31-73) Lymphocytes (%) (Auto) 4 % (24-48) 5 % (24-48) Monocytes (%) (Auto) 3 % (0-9) 2 % (0-9) Eosinophils (%) (Auto) 0 % (0-3) 0 % (0-3) Basophils (%) (Auto) 0 % (0-3) 0 % (0-3) Neutrophils # (Auto) 10.4 x10^3/uL (1.8-7.7) 10.0 x10^3/uL (1.8-7.7) Lymphocytes # (Auto) 0.5 x10^3/uL (1.0-4.8) 0.5 x10^3/uL (1.0-4.8) Monocytes # (Auto) 0.3 x10^3/uL (0.0-1.1) 0.2 x10^3/uL (0.0-1.1) Eosinophils # (Auto) 0.0 x10^3/uL (0.0-0.7) 0.0 x10^3/uL (0.0-0.7) Basophils # (Auto) 0.0 x10^3/uL (0.0-0.2) 0.0 x10^3/uL (0.0-0.2) Sodium Level 139 mmol/L (136-145) 141 mmol/L (136-145) Potassium Level 4.8 mmol/L (3.5-5.1) 5.5 mmol/L (3.5-5.1) Chloride Level 103 mmol/L (98-107) 107 mmol/L (98-107) Carbon Dioxide Level 26 mmol/L (21-32) 23 mmol/L (21-32) Anion Gap 10 (6-14) 11 (6-14) Blood Urea Nitrogen 61 mg/dL (8-26) 72 mg/dL (8-26) Creatinine 3.3 mg/dL (0.7-1.3) 3.4 mg/dL (0.7-1.3) Estimated GFR (Cockcroft-Gault) 23.6 22.8 BUN/Creatinine Ratio 18 (6-20) 21 (6-20) Glucose Level 190 mg/dL (70-99) 240 mg/dL (70-99) Calcium Level 7.5 mg/dL (8.5-10.1) 7.6 mg/dL (8.5-10.1) Total Bilirubin 0.5 mg/dL (0.2-1.0) 0.3 mg/dL (0.2-1.0) Aspartate Amino Transf (AST/SGOT) 20 U/L (15-37) 11 U/L (15-37) Alanine Aminotransferase (ALT/SGPT) 61 U/L (16-63) 41 U/L (16-63) Alkaline Phosphatase 30 U/L (46-116) 31 U/L (46-116) Creatine Kinase 170 U/L (39-308) Total Protein 5.2 g/dL (6.4-8.2) 4.6 g/dL (6.4-8.2) Albumin 2.5 g/dL (3.4-5.0) 2.4 g/dL (3.4-5.0) Albumin/Globulin Ratio 0.9 (1.0-1.7) 1.1 (1.0-1.7) O2 Saturation 89 % (92-99) Arterial Blood pH 7.33 (7.35-7.45) Arterial Blood pCO2 at Patient Temp 49 mmHg (35-46) Arterial Blood pO2 at Patient Temp 65 mmHg (75-108) Arterial Blood HCO3 25 mmol/L (21-28) Arterial Blood Base Excess -1 mmol/L (-3-3) FiO2 70 Test 05/11/20 08:00 O2 Saturation 93 % (92-99) Arterial Blood pH 7.35 (7.35-7.45) Arterial Blood pCO2 at Patient Temp 37 mmHg (35-46) Arterial Blood pO2 at Patient Temp 70 mmHg (75-108) Arterial Blood HCO3 20 mmol/L (21-28) Arterial Blood Base Excess -5 mmol/L (-3-3) FiO2 75 Laboratory Tests Test 05/11/20 05:52 05/11/20 08:00 White Blood Count 10.7 x10^3/uL (4.0-11.0) Red Blood Count 5.88 x10^6/uL (4.30-5.70) Hemoglobin 13.6 g/dL (13.0-17.5) Hematocrit 44.3 % (39.0-53.0) Mean Corpuscular Volume 75 fL (79-100) Mean Corpuscular Hemoglobin 23 pg (25-35) Mean Corpuscular Hemoglobin Concent 31 g/dL (31-37) Red Cell Distribution Width 17.8 % (11.5-14.5) Platelet Count 174 x10^3/uL (140-400) Neutrophils (%) (Auto) 93 % (31-73) Lymphocytes (%) (Auto) 5 % (24-48) Monocytes (%) (Auto) 2 % (0-9) Eosinophils (%) (Auto) 0 % (0-3) Basophils (%) (Auto) 0 % (0-3) Neutrophils # (Auto) 10.0 x10^3/uL (1.8-7.7) Lymphocytes # (Auto) 0.5 x10^3/uL (1.0-4.8) Monocytes # (Auto) 0.2 x10^3/uL (0.0-1.1) Eosinophils # (Auto) 0.0 x10^3/uL (0.0-0.7) Basophils # (Auto) 0.0 x10^3/uL (0.0-0.2) Sodium Level 141 mmol/L (136-145) Potassium Level 5.5 mmol/L (3.5-5.1) Chloride Level 107 mmol/L (98-107) Carbon Dioxide Level 23 mmol/L (21-32) Anion Gap 11 (6-14) Blood Urea Nitrogen 72 mg/dL (8-26) Creatinine 3.4 mg/dL (0.7-1.3) Estimated GFR (Cockcroft-Gault) 22.8 BUN/Creatinine Ratio 21 (6-20) Glucose Level 240 mg/dL (70-99) Calcium Level 7.6 mg/dL (8.5-10.1) Total Bilirubin 0.3 mg/dL (0.2-1.0) Aspartate Amino Transf (AST/SGOT) 11 U/L (15-37) Alanine Aminotransferase (ALT/SGPT) 41 U/L (16-63) Alkaline Phosphatase 31 U/L (46-116) Total Protein 4.6 g/dL (6.4-8.2) Albumin 2.4 g/dL (3.4-5.0) Albumin/Globulin Ratio 1.1 (1.0-1.7) O2 Saturation 93 % (92-99) Arterial Blood pH 7.35 (7.35-7.45) Arterial Blood pCO2 at Patient Temp 37 mmHg (35-46) Arterial Blood pO2 at Patient Temp 70 mmHg (75-108) Arterial Blood HCO3 20 mmol/L (21-28) Arterial Blood Base Excess -5 mmol/L (-3-3) FiO2 75 Microbiology 05/08/20 Blood Culture - Preliminary, Resulted NO GROWTH AFTER 2 DAYS Medications Current Medications Propofol 50 ml @ As Directed STK-MED ONCE IV ; Start 05/08/20 at 07:33; Stop 05/08/20 at 07:33; Status DC Propofol 100 ml @ 0 mls/hr CONT PRN IV SEE PROTOCOL Last administered on 05/11/20at 05:46; Start 05/08/20 at 07:45 Fentanyl Citrate (Fentanyl 2ml Vial) 50 mcg PRN Q1HR PRN IV SEE COMMENTS Last administered on 05/08/20at 12:44; Start 05/08/20 at 07:45 Chlorhexidine Gluconate (Peridex) 15 ml BID MM Last administered on 05/10/20at 21:11; Start 05/08/20 at 09:00 Etomidate (Amidate) 20 mg 1X ONCE IV Last administered on 05/08/20at 07:30; S tart 05/08/20 at 07:45; Stop 05/08/20 at 09:04; Status DC Succinylcholine Chloride (Anectine) 100 mg 1X ONCE IV Last administered on 05/08/20at 07:31; Start 05/08/20 at 07:45; Stop 05/08/20 at 09:04; Status DC Albuterol/ Ipratropium (Duoneb) 6 ml 1X ONCE NEB ; Start 05/08/20 at 07:45; Stop 05/08/20 at 09:04; Status DC Methylprednisolone Sodium Succinate (SOLU-Medrol 125MG VIAL) 125 mg 1X ONCE IV Last administered on 05/08/20at 08:31; Start 05/08/20 at 07:45; Stop 05/08/20 at 09:04; Status DC Albuterol Sulfate (Ventolin Neb Soln) 2.5 mg 1X ONCE NEB ; Start 05/08/20 at 07:45; Stop 05/08/20 at 08:56; Status DC Ceftriaxone Sodium (Rocephin) 1 gm 1X ONCE IVP Last administered on 05/08/20at 08:31; Start 05/08/20 at 07:45; Stop 05/08/20 at 09:04; Status DC Propofol (Diprivan) 40 mg 1X ONCE IV ; Start 05/08/20 at 08:00; Stop 05/08/20 at 09:04; Status DC Fentanyl Citrate 30 ml @ 0 mls/hr CONT PRN IV SEE PROTOCOL Last administered on 05/11/20at 09:17; Start 05/08/20 at 08:15 Midazolam HCl 100 ml @ 0 mls/hr CONT PRN IV SEE PROTOCOL Last administered on 05/11/20at 09:06; Start 05/08/20 at 08:15 Sodium Chloride 1,000 ml @ 1,000 mls/hr 1X ONCE IV Last administered on 05/08/20at 08:47; Start 05/08/20 at 08:30; Stop 05/08/20 at 09:29; Status DC Midazolam HCl (Versed) 5 mg 1X ONCE IV Last administered on 05/08/20at 08:33; Start 05/08/20 at 08:30; Stop 05/08/20 at 09:04; Status DC Ondansetron HCl (Zofran) 4 mg PRN Q8HRS PRN IV NAUSEA/VOMITING; Start 05/08/20 at 08:45; Stop 05/09/20 at 08:44; Status DC Aspirin (Aspirin Rectal Supp) 300 mg 1X ONCE AR Last administered on 05/08/20at 10:00; Start 05/08/20 at 08:45; Stop 05/08/20 at 09:04; Status DC Sodium Chloride (Normal Saline Flush) 3 ml QSHIFT PRN IV AFTER MEDS AND BLOOD DRAWS; Start 05/08/20 at 11:30; Stop 05/08/20 at 18:55; Status DC Sodium Chloride 1,000 ml @ 60 mls/hr [id number] IV Last administered on 05/08/20at 12:53; Start 05/08/20 at 11:24; Stop 05/08/20 at 18:55; Status DC Ondansetron HCl (Zofran) 4 mg PRN Q4HRS PRN IV NAUSEA/VOMITING; Start 05/08/20 at 11:30; Stop 05/08/20 at 18:55; Status DC Acetaminophen (Tylenol Supp) 650 mg PRN Q4HRS PRN AR TEMP OVER 100.4F OR MILD PAIN; Start 05/08/20 at 11:30; Stop 05/08/20 at 18:47; Status DC Sodium Monofluorophosphate (Fleet Adult) 133 ml PRN DAILY PRN AR CONSTIPATION; Start 05/08/20 at 11:30; Stop 05/08/20 at 18:55; Status DC Albuterol/ Ipratropium (Duoneb) 3 ml Q4H NEB ; Start 05/08/20 at 11:30; Stop 05/08/20 at 15:37; Status DC Enoxaparin Sodium (Lovenox 40mg Syringe) 40 mg DAILY SQ ; Start 05/09/20 at 09:00; Stop 05/08/20 at 18:54; Status DC Pantoprazole Sodium (PROTONIX VIAL for IV PUSH) 40 mg DAILYAC IVP Last administered on 05/10/20at 08:21; Start 05/08/20 at 11:30 Etomidate (Amidate) 40 mg 1X ONCE IV Last administered on 05/08/20at 07:57; Start 05/08/20 at 07:55; Stop 05/08/20 at 12:05; Status DC Methylprednisolone Sodium Succinate (SOLU-Medrol 125MG VIAL) 60 mg Q8HRS IV Last administered on 05/11/20at 05:46; Start 05/08/20 at 14:00 Midazolam HCl (Versed) 5 mg PRN Q15MIN PRN IV SEDATION Last administered on 05/08/20at 12:32; Start 05/08/20 at 08:00 Enoxaparin Sodium (Lovenox Per Pharmacy Prophylaxis Dosing) 1 each PRN DAILY PRN MC SEE COMMENTS; Start 05/08/20 at 16:00; Stop 05/10/20 at 09:14; Status DC Sodium Chloride (Normal Saline Flush) 3 ml QSHIFT PRN IV AFTER MEDS AND BLOOD DRAWS; Start 05/08/20 at 16:15 Sodium Chloride 1,000 ml @ 125 mls/hr Q8H IV Last administered on 05/11/20at 05:45; Start 05/08/20 at 16:01 Ondansetron HCl (Zofran) 4 mg PRN Q4HRS PRN IV NAUSEA/VOMITING; Start 05/08/20 at 16:15 Acetaminophen (Tylenol Supp) 650 mg PRN Q4HRS PRN AR TEMP OVER 100.4F OR MILD PAIN; Start 05/08/20 at 16:15 Sodium Monofluorophosphate (Fleet Adult) 133 ml PRN DAILY PRN AR CONSTIPATION; Start 05/08/20 at 16:15 Albuterol/ Ipratropium (Duoneb) 3 ml Q4H NEB ; Start 05/08/20 at 16:15; Stop 05/08/20 at 18:45; Status DC Enoxaparin Sodium (Lovenox 40mg Syringe) 40 mg Q24H SQ Last administered on 05/09/20at 17:04; Start 05/08/20 at 17:00; Stop 05/10/20 at 09:14; Status DC Ceftriaxone Sodium (Rocephin) 1 gm Q24H IVP Last administered on 05/10/20at 08:32; Start 05/09/20 at 08:00 Aspirin (Aspirin Chewable) 81 mg DAILYWBKFT PO ; Start 05/08/20 at 17:30; Stop 05/08/20 at 17:27; Status DC Aspirin (Aspirin Chewable) 81 mg DAILYWBKFT PO Last administered on 05/10/20at 08:32; Start 05/09/20 at 08:00 Albuterol Sulfate (Ventolin Neb Soln) 2.5 mg PRN Q4HRS PRN NEB SHORTNESS OF BREATH; Start 05/08/20 at 19:00 Amlodipine Besylate (Norvasc) 10 mg 1X ONCE PO Last administered on 05/09/20at 14:31; Start 05/09/20 at 14:30; Stop 05/09/20 at 14:31; Status DC Clonidine HCl (Catapres) 0.1 mg PRN Q2HR PRN PO HYPERTENSION; Start 05/09/20 at 14:30 Enoxaparin Sodium (Lovenox Per Pharmacy Treatment Dosing) 1 each PRN DAILY PRN MC SEE COMMENTS; Start 05/10/20 at 09:30; Status Cancel Enoxaparin Sodium (Lovenox 120mg Syringe) 120 mg DAILY SQ Last administered on 05/10/20at 10:19; Start 05/10/20 at 10:00; Stop 05/10/20 at 10:48; Status DC Heparin Sodium/ Dextrose 250 ml @ 10 mls/hr CONT PRN IV PER PROTOCOL; Start 05/10/20 at 11:00 Heparin Sodium (Porcine) (Heparin Sodium) 2,950 unit PRN Q6HRS PRN IV FOR UFH LEVEL LESS THAN 0.2; Start 05/10/20 at 11:00 Polyethylene Glycol (miraLAX PACKET) 17 gm PRN DAILY PRN PO CONSTIPATION Last administered on 05/10/20at 17:29; Start 05/10/20 at 16:00 Active Scripts Active Reported [amlodipine benazep] Unknown Dose PO Proventil Hfa (Albuterol Sulfate) 6.7 Gm Hfa.aer.ad 1 Puff INH PRN Q6HRS PRN Advair 100-50 Diskus (Fluticasone/Salmeterol) 1 Each Disk.w.dev 1 Puff IH BID Vitals/I & O Vital Sign - Last 24 Hours 05/10/20 05/10/20 05/10/20 05/10/20 10:00 11:00 11:07 12:00 Temp 97.9 97.9 Pulse 73 75 72 Resp 22 22 22 B/P (MAP) 121/82 (95) 128/77 (94) 117/72 (87) Pulse Ox 95 94 94 92 O2 Delivery Ventilator Ventilator Ventilator Ventilator 05/10/20 05/10/20 05/10/20 05/10/20 12:00 13:00 14:00 15:00 Pulse 75 69 71 Resp 22 22 22 B/P (MAP) 120/69 (86) 102/70 (81) 100/70 (80) Pulse Ox 94 96 96 O2 Delivery Mechanical Ventilator Ventilator Ventilator Ventilator 05/10/20 05/10/20 05/10/20 05/10/20 15:29 15:34 16:00 17:00 Temp 98.0 98.0 Pulse 67 69 Resp 22 22 B/P (MAP) 115/78 (90) 126/85 (99) Pulse Ox 96 96 94 O2 Delivery Mechanical Ventilator Ventilator Ventilator Ventilator 05/10/20 05/10/20 05/10/20 05/10/20 18:00 19:00 20:00 20:00 Temp 97.6 97.6 Pulse 69 67 68 Resp 22 22 B/P (MAP) 118/84 (95) 119/85 (96) 100/73 (82) Pulse Ox 93 94 93 O2 Delivery Ventilator Ventilator Mechanical Ventilator Ventilator 05/10/20 05/10/20 05/10/20 05/10/20 20:08 21:00 22:00 23:00 Pulse 65 61 64 Resp 22 B/P (MAP) 106/69 (81) 104/69 (81) 97/64 (75) Pulse Ox 94 96 95 95 O2 Delivery Ventilator Ventilator Ventilator Ventilator 05/11/20 05/11/20 05/11/20 05/11/20 00:03 00:04 00:24 01:00 Temp 97.6 97.6 Pulse 59 64 Resp 22 B/P (MAP) 106/70 (82) 106/71 (83) Pulse Ox 96 95 95 O2 Delivery Ventilator Mechanical Ventilator Ventilator Ventilator 05/11/20 05/11/20 05/11/20 05/11/20 02:00 03:00 04:00 04:00 Temp 97.7 97.7 Pulse 61 64 58 Resp 22 B/P (MAP) 115/77 (90) 106/71 (83) 108/76 (87) Pulse Ox 96 95 95 O2 Delivery Ventilator Ventilator Mechanical Ventilator Ventilator 05/11/20 05/11/20 05/11/20 05/11/20 04:37 05:00 06:05 07:45 Pulse 57 60 Resp 22 B/P (MAP) 118/77 (91) 125/75 (92) Pulse Ox 95 96 96 96 O2 Delivery Ventilator Ventilator Ventilator Ventilator 05/11/20 09:17 Resp 22 Pulse Ox 95 O2 Delivery Ventilator Intake and Output 05/10/20 05/10/20 05/11/20 14:59 22:59 06:59 Intake Total 200 ml 3517 ml 3004.5 ml Output Total 650 ml 865 ml 700 ml Balance -450 ml 2652 ml 2304.5 ml CLARK MCMANUS MD May 11, 2020 09:31
--- NOTE | 2020-05-11 10:06 | NUR ---
Talked with Avelina and she wishes patient transfered to [facility]. Social Work notified and they will proceed with notification. Dr Jiang made aware of the wifes decision. called back and gave verbal consent for the dialysis catheter.
--- NOTE | 2020-05-11 10:29 | NUR ---
SS following up with discharge planning. SS reviewed pt chart and discussed with RN, Marlen. Pt remains on the vent at this time. COVID19 negative. Pt's family requesting transfer to [facility] on the [address], ; fax [phone]. SS contacted [facility] inpatient transfer team and spoke with Susan. SS faxed face sheet and insurance card copies to [facility] as requested. SS contacted Radiology, [phone], and requested that images be clouded to [facility]. Packet, transfer form, and ambulance form on the chart. SS will await acceptance decision and will proceed accordingly.
--- NOTE | 2020-05-11 10:31 | PDOC ---
PULMONARY PROGRESS NOTES Subjective Patient remains on assist control ventilation 7 of PEEP 75% FiO2 Vitals Vital Signs Date Time Temp Pulse Resp B/P (MAP) Pulse Ox O2 Delivery O2 Flow Rate FiO2 05/11/20 09:17 22 95 Ventilator 05/11/20 06:05 60 125/75 (92) 05/11/20 04:00 97.7 97.7 Comments intubated/sedated Lungs: Other (decrease bs) Cardiovascular: S1 Abdomen: Soft, Other (obese) Extremities: Other (trace edema) Labs Laboratory Tests Test 05/09/20 12:49 05/10/20 04:45 05/10/20 07:45 05/11/20 05:52 Glucose (Fingerstick) 270 mg/dL (70-99) White Blood Count 11.2 x10^3/uL (4.0-11.0) 10.7 x10^3/uL (4.0-11.0) Red Blood Count 5.95 x10^6/uL (4.30-5.70) 5.88 x10^6/uL (4.30-5.70) Hemoglobin 13.9 g/dL (13.0-17.5) 13.6 g/dL (13.0-17.5) Hematocrit 44.5 % (39.0-53.0) 44.3 % (39.0-53.0) Mean Corpuscular Volume 75 fL (79-100) 75 fL (79-100) Mean Corpuscular Hemoglobin 23 pg (25-35) 23 pg (25-35) Mean Corpuscular Hemoglobin Concent 31 g/dL (31-37) 31 g/dL (31-37) Red Cell Distribution Width 17.0 % (11.5-14.5) 17.8 % (11.5-14.5) Platelet Count 199 x10^3/uL (140-400) 174 x10^3/uL (140-400) Neutrophils (%) (Auto) 93 % (31-73) 93 % (31-73) Lymphocytes (%) (Auto) 4 % (24-48) 5 % (24-48) Monocytes (%) (Auto) 3 % (0-9) 2 % (0-9) Eosinophils (%) (Auto) 0 % (0-3) 0 % (0-3) Basophils (%) (Auto) 0 % (0-3) 0 % (0-3) Neutrophils # (Auto) 10.4 x10^3/uL (1.8-7.7) 10.0 x10^3/uL (1.8-7.7) Lymphocytes # (Auto) 0.5 x10^3/uL (1.0-4.8) 0.5 x10^3/uL (1.0-4.8) Monocytes # (Auto) 0.3 x10^3/uL (0.0-1.1) 0.2 x10^3/uL (0.0-1.1) Eosinophils # (Auto) 0.0 x10^3/uL (0.0-0.7) 0.0 x10^3/uL (0.0-0.7) Basophils # (Auto) 0.0 x10^3/uL (0.0-0.2) 0.0 x10^3/uL (0.0-0.2) Sodium Level 139 mmol/L (136-145) 141 mmol/L (136-145) Potassium Level 4.8 mmol/L (3.5-5.1) 5.5 mmol/L (3.5-5.1) Chloride Level 103 mmol/L (98-107) 107 mmol/L (98-107) Carbon Dioxide Level 26 mmol/L (21-32) 23 mmol/L (21-32) Anion Gap 10 (6-14) 11 (6-14) Blood Urea Nitrogen 61 mg/dL (8-26) 72 mg/dL (8-26) Creatinine 3.3 mg/dL (0.7-1.3) 3.4 mg/dL (0.7-1.3) Estimated GFR (Cockcroft-Gault) 23.6 22.8 BUN/Creatinine Ratio 18 (6-20) 21 (6-20) Glucose Level 190 mg/dL (70-99) 240 mg/dL (70-99) Calcium Level 7.5 mg/dL (8.5-10.1) 7.6 mg/dL (8.5-10.1) Total Bilirubin 0.5 mg/dL (0.2-1.0) 0.3 mg/dL (0.2-1.0) Aspartate Amino Transf (AST/SGOT) 20 U/L (15-37) 11 U/L (15-37) Alanine Aminotransferase (ALT/SGPT) 61 U/L (16-63) 41 U/L (16-63) Alkaline Phosphatase 30 U/L (46-116) 31 U/L (46-116) Creatine Kinase 170 U/L (39-308) Total Protein 5.2 g/dL (6.4-8.2) 4.6 g/dL (6.4-8.2) Albumin 2.5 g/dL (3.4-5.0) 2.4 g/dL (3.4-5.0) Albumin/Globulin Ratio 0.9 (1.0-1.7) 1.1 (1.0-1.7) O2 Saturation 89 % (92-99) Arterial Blood pH 7.33 (7.35-7.45) Arterial Blood pCO2 at Patient Temp 49 mmHg (35-46) Arterial Blood pO2 at Patient Temp 65 mmHg (75-108) Arterial Blood HCO3 25 mmol/L (21-28) Arterial Blood Base Excess -1 mmol/L (-3-3) FiO2 70 Test 05/11/20 08:00 O2 Saturation 93 % (92-99) Arterial Blood pH 7.35 (7.35-7.45) Arterial Blood pCO2 at Patient Temp 37 mmHg (35-46) Arterial Blood pO2 at Patient Temp 70 mmHg (75-108) Arterial Blood HCO3 20 mmol/L (21-28) Arterial Blood Base Excess -5 mmol/L (-3-3) FiO2 75 Laboratory Tests Test 05/11/20 05:52 05/11/20 08:00 White Blood Count 10.7 x10^3/uL (4.0-11.0) Red Blood Count 5.88 x10^6/uL (4.30-5.70) Hemoglobin 13.6 g/dL (13.0-17.5) Hematocrit 44.3 % (39.0-53.0) Mean Corpuscular Volume 75 fL (79-100) Mean Corpuscular Hemoglobin 23 pg (25-35) Mean Corpuscular Hemoglobin Concent 31 g/dL (31-37) Red Cell Distribution Width 17.8 % (11.5-14.5) Platelet Count 174 x10^3/uL (140-400) Neutrophils (%) (Auto) 93 % (31-73) Lymphocytes (%) (Auto) 5 % (24-48) Monocytes (%) (Auto) 2 % (0-9) Eosinophils (%) (Auto) 0 % (0-3) Basophils (%) (Auto) 0 % (0-3) Neutrophils # (Auto) 10.0 x10^3/uL (1.8-7.7) Lymphocytes # (Auto) 0.5 x10^3/uL (1.0-4.8) Monocytes # (Auto) 0.2 x10^3/uL (0.0-1.1) Eosinophils # (Auto) 0.0 x10^3/uL (0.0-0.7) Basophils # (Auto) 0.0 x10^3/uL (0.0-0.2) Sodium Level 141 mmol/L (136-145) Potassium Level 5.5 mmol/L (3.5-5.1) Chloride Level 107 mmol/L (98-107) Carbon Dioxide Level 23 mmol/L (21-32) Anion Gap 11 (6-14) Blood Urea Nitrogen 72 mg/dL (8-26) Creatinine 3.4 mg/dL (0.7-1.3) Estimated GFR (Cockcroft-Gault) 22.8 BUN/Creatinine Ratio 21 (6-20) Glucose Level 240 mg/dL (70-99) Calcium Level 7.6 mg/dL (8.5-10.1) Total Bilirubin 0.3 mg/dL (0.2-1.0) Aspartate Amino Transf (AST/SGOT) 11 U/L (15-37) Alanine Aminotransferase (ALT/SGPT) 41 U/L (16-63) Alkaline Phosphatase 31 U/L (46-116) Total Protein 4.6 g/dL (6.4-8.2) Albumin 2.4 g/dL (3.4-5.0) Albumin/Globulin Ratio 1.1 (1.0-1.7) O2 Saturation 93 % (92-99) Arterial Blood pH 7.35 (7.35-7.45) Arterial Blood pCO2 at Patient Temp 37 mmHg (35-46) Arterial Blood pO2 at Patient Temp 70 mmHg (75-108) Arterial Blood HCO3 20 mmol/L (21-28) Arterial Blood Base Excess -5 mmol/L (-3-3) FiO2 75 Medications Active Scripts Medications Dose Route/Sig Max Daily Dose Days Date Category [amlodipine benazep] Unknown Dose PO 05/08/20 Reported Proventil Hfa (Albuterol Sulfate) 6.7 Gm Hfa.aer.ad 1 Puff INH PRN Q6HRS PRN 05/08/20 Reported Advair 100-50 Diskus (Fluticasone/Salmeterol) 1 Each Disk.w.dev 1 Puff IH BID 05/08/20 Reported Comments IMPRESSION:New right internal jugular central venous catheter with tip at the superior cavoatrial junction. No pneumothorax. Otherwise unchanged. Impression . 1. Acute hypoxic and hypercapnic respiratory failure secondary to multifactorial etiologies including suspected chronic obstructive pulmonary disease with acute exacerbation, non-ST myocardial infarction, and cocaine overdose. 2. Underlying chronic obstructive pulmonary disease, clinically suspected. 3. Abnormal chest x-ray with prominent interstitial markings, probably related to mild interstitial edema.improved 4. Abnormal troponin consistent with non-ST myocardial infarction./? RV infarction 5. Acute kidney injury. 6. Abnormal LFTs. Could be related to hypoperfusion. 7. Urine drug screen positive for cocaine. 8. Possible pulmonary embolism Plan . Case discussed with Dr. Miranda, patient to start hemodialysis Continue assist control ventilation We will obtain CT angiogram IV steroids Follow cardiology input Discussed with RT Total cumulative critical care time of 30 minutes, reviewing data, labs, chest x-ray, and formulating a plan TOÑA WAGONER MD May 11, 2020 10:31
--- NOTE | 2020-05-11 10:50 | NUR ---
SS following up with discharge planning. [facility] the [place] contacted SS and notified SS that pt has been declined for transfer to [facility]. They reported that they do not have the resources at this time to accept pt. Pt's RN notified.
--- NOTE | 2020-05-11 11:12 | NUR ---
SS following up with discharge planning. Pt's family now requesting transfer to . SS contacted transfer team, ; fax [phone]. SS spoke with Norman in the transfer team, , and made request for transfer. SS faxed face sheet and insurance cards per request. Norman reported that he would discuss with his medical collections representative and would notify SS of further steps needed.
[2020-05-11] MEDS: ASPIRIN CHEWABLE 81 MG TABLET. PO SCH (11:19)
[2020-05-11] MEDS: POLYETHYLENE GLYCOL 3350 17 GM PACKET. PO PRN (11:20)
[2020-05-11] MEDS: PANTOPRAZOLE IV PUSH 40 MG VIAL. IVP SCH (11:20)
[2020-05-11] MEDS: cefTRIAXone IV Push 1 GM VIAL. IVP SCH (11:21)
[2020-05-11] MEDS: CHLORHEXIDINE 0.12% 15 ML MOUTHWASH. MM SCH ×2 (11:21→20:57)
--- NOTE | 2020-05-11 11:30 | PDOC ---
Renal-Progress Notes Subjective Notes Notes INTUBATED History of Present Illness Hx of present illness EVY IS WORSE Vitals Vitals Vital Signs Date Time Temp Pulse Resp B/P (MAP) Pulse Ox O2 Delivery O2 Flow Rate FiO2 05/11/20 09:17 22 95 Ventilator 05/11/20 06:05 60 125/75 (92) 05/11/20 04:00 97.7 97.7 Weight Weight [ ] I.O. Intake and Output Intake and Output 05/11/20 07:00 Intake Total 6721.5 ml Output Total 2215 ml Balance 4506.5 ml Intake IV Total 4670.5 ml Tube Feeding 1751 ml Other 300 ml Output Urine Total 2215 ml Labs Labs Laboratory Tests Test 05/11/20 05:52 05/11/20 08:00 White Blood Count 10.7 x10^3/uL (4.0-11.0) Red Blood Count 5.88 x10^6/uL (4.30-5.70) Hemoglobin 13.6 g/dL (13.0-17.5) Hematocrit 44.3 % (39.0-53.0) Mean Corpuscular Volume 75 fL (79-100) Mean Corpuscular Hemoglobin 23 pg (25-35) Mean Corpuscular Hemoglobin Concent 31 g/dL (31-37) Red Cell Distribution Width 17.8 % (11.5-14.5) Platelet Count 174 x10^3/uL (140-400) Neutrophils (%) (Auto) 93 % (31-73) Lymphocytes (%) (Auto) 5 % (24-48) Monocytes (%) (Auto) 2 % (0-9) Eosinophils (%) (Auto) 0 % (0-3) Basophils (%) (Auto) 0 % (0-3) Neutrophils # (Auto) 10.0 x10^3/uL (1.8-7.7) Lymphocytes # (Auto) 0.5 x10^3/uL (1.0-4.8) Monocytes # (Auto) 0.2 x10^3/uL (0.0-1.1) Eosinophils # (Auto) 0.0 x10^3/uL (0.0-0.7) Basophils # (Auto) 0.0 x10^3/uL (0.0-0.2) Sodium Level 141 mmol/L (136-145) Potassium Level 5.5 mmol/L (3.5-5.1) Chloride Level 107 mmol/L (98-107) Carbon Dioxide Level 23 mmol/L (21-32) Anion Gap 11 (6-14) Blood Urea Nitrogen 72 mg/dL (8-26) Creatinine 3.4 mg/dL (0.7-1.3) Estimated GFR (Cockcroft-Gault) 22.8 BUN/Creatinine Ratio 21 (6-20) Glucose Level 240 mg/dL (70-99) Calcium Level 7.6 mg/dL (8.5-10.1) Total Bilirubin 0.3 mg/dL (0.2-1.0) Aspartate Amino Transf (AST/SGOT) 11 U/L (15-37) Alanine Aminotransferase (ALT/SGPT) 41 U/L (16-63) Alkaline Phosphatase 31 U/L (46-116) Total Protein 4.6 g/dL (6.4-8.2) Albumin 2.4 g/dL (3.4-5.0) Albumin/Globulin Ratio 1.1 (1.0-1.7) O2 Saturation 93 % (92-99) Arterial Blood pH 7.35 (7.35-7.45) Arterial Blood pCO2 at Patient Temp 37 mmHg (35-46) Arterial Blood pO2 at Patient Temp 70 mmHg (75-108) Arterial Blood HCO3 20 mmol/L (21-28) Arterial Blood Base Excess -5 mmol/L (-3-3) FiO2 75 Micro Micro Microbiology 05/08/20 Blood Culture - Preliminary, Resulted NO GROWTH AFTER 2 DAYS Review of Systems Constitutional: yes: other (ON THE VENT SEDATED) Physical Exam General Appearance: no apparent distress Skin: warm Respiratory: ventilator (Mode:A/C), decreased breath sounds Heart: S1S2 Abdomen: soft, bowel sounds present Genitourinary: bladder flat Extremities: pulses present Neurology: other (sedated) Assessment Assessment IMP EVY - ATN WITH CR WORSE AND DECREASED UO HYPERKALEMIA POSSIBLE RHABDOMYOLYSIS-CK OF 441 ACUTE ON CHRONIC HYPERCARBIC HYPOXIC RESP FAILURE-FIO2 OF 70% SUBSTANCE ABUSE-COCAINE LEUCOCYTOSIS-PROB REACTIVE NSTEMI HYPERGLYCEMIA HTN PLAN COVID 19 NEG VENT SUPPORT CONT SALINE HYDRATION ? PE - OK WITH CTA IF NEEDED CONT TF-CHANGE TO NEPRO F/U CPK LEVEL CARDIOLOGY AND PULM EVAL TEMP HD CATH TODAY HD TODAY UF MINIMAL D/W PULM AND CARDIOLOGY OK WITH HEART CATH NEEDED UPDATED CLOVER REID MD May 11, 2020 11:30
--- NOTE | 2020-05-11 12:47 | NUR ---
SS following up with discharge planning. SS received phone contact from Norman at the transfer team, , reporting that pt has financial clearance and physician director is requesting to review clinical. SS faxed clinical to transfer team, fax [phone], as requested. SS contacted radiology, [phone], and requested images be clouded to . SS will continue to follow for discharge planning.
[2020-05-11] MEDS ORDERED: LIDOCAINE WITH 8.4% SOD BICARB 3 ML DISP.SYRIN. ONE (13:30)
[2020-05-11] MEDS ORDERED: LIDOCAINE WITH 8.4% SOD BICARB 3 ML DISP.SYRIN. INJ ONE (14:00)
--- NOTE | 2020-05-11 14:17 | RAD ---
EXAM: CHEST AP ONLY 05/11/2020 1:49 PM CLINICAL INDICATION:Temporary dialysis catheter placement COMPARISON:Chest radiograph 05/10/2020 TECHNIQUE:AP supine view of the chest FINDINGS:A new right IJ central venous catheter tip terminates at the superior cavoatrial junction. Nasogastric tube is seen to the inferior edge of the film, with the distal tip not visualized. An endotracheal tube terminates approximately 7 cm above the michaela, unchanged. Bilateral pleural effusions and bibasilar opacities are unchanged allowing for differences in technique. No pneumothorax. The cardiomediastinal silhouette remains enlarged. IMPRESSION:New right internal jugular central venous catheter with tip at the superior cavoatrial junction. No pneumothorax. Otherwise unchanged. Electronically signed by: Alba Mcclain MD (05/11/2020 2:14 PM) [id number]
[2020-05-11] MEDS ORDERED: IV NORMAL SALINE 1000ML BAG 1,000 ML IV PRN (15:19)
[2020-05-11] MEDS ORDERED: DIALYSIS PATIENT. MC PRN ×2 (15:30)
--- NOTE | 2020-05-11 20:52 | RAD ---
EXAM: Supine AP view of the abdomen DATE: 05/11/2020 8:14 PM INDICATION: Reason: verify NG placement / Spl. Instructions: / History: COMPARISON: No Prior FINDINGS: Exam is limited by motion artifact. NG tube tip projects over the body of the stomach. No abnormal small or large bowel dilatation. No abnormal soft tissue mass effect. No suspicious calcifications are seen. Evaluation for free intraperitoneal gas is limited on this supine exam. Left lung base opacities IMPRESSION: 1. No evidence for bowel obstruction. 2. NG tube tip projects over the body of the stomach. Electronically signed by: Miller Mcbride MD (05/11/2020 8:49 PM) MEKA
[2020-05-12] VITALS (24 sets, daily range): BP systolic 92–177; BP diastolic 66–106
[2020-05-12] MEDS: IV NORMAL SALINE 1000ML BAG 1,000 ML IV SCH ×3 (01:04→20:54)
[2020-05-12] MEDS: MIDAZOLAM 100mg/100ml NS BAG 100 ML IV PRN ×2 (01:05→18:17)
[2020-05-12] MEDS: PROPOFOL 100 ML IV PRN ×4 (01:05→22:17)
[2020-05-12 03:39] LABS: HEMATOCRIT 44.9 % (39.0-53.0); HEMOGLOBIN 13.9 g/dL (13.0-17.5); RED BLOOD COUNT 5.99 x10^6/uL (4.30-5.70); RED CELL DISTRIBUTION WIDTH 17.6 % (11.5-14.5); WHITE BLOOD COUNT 11.9 x10^3/uL (4.0-11.0)
[2020-05-12 03:55] LABS: ALBUMIN 2.4 g/dL (3.4-5.0); ALBUMIN/GLOBULIN RATIO 0.9 (1.0-1.7); CALCIUM 7.8 mg/dL (8.5-10.1); CREATININE 2.7 mg/dL (0.7-1.3); GFR 29.7; POTASSIUM 4.5 mmol/L (3.5-5.1); TOTAL BILIRUBIN 0.5 mg/dL (0.2-1.0)
[2020-05-12] MEDS: methylPREDNISolone SOD SUCC PF 125 MG/2 ML VIAL. IV SCH ×3 (05:54→22:17)
[2020-05-12 07:52] LABS: BASE EXCESS ABG -1 mmol/L (-3-3); HCO3 ABG 23 mmol/L (21-28); PCO2 ABG 39 mmHg (35-46); PO2 ABG 70 mmHg (75-108); SAT O2 ABG 93 % (92-99)
[2020-05-12] MEDS: PANTOPRAZOLE IV PUSH 40 MG VIAL. IVP SCH (08:11)
[2020-05-12] MEDS: cefTRIAXone IV Push 1 GM VIAL. IVP SCH (08:11)
[2020-05-12] MEDS: ASPIRIN CHEWABLE 81 MG TABLET. PO SCH (08:11)
[2020-05-12] MEDS: CHLORHEXIDINE 0.12% 15 ML MOUTHWASH. MM SCH ×2 (08:28→20:53)
[2020-05-12] MEDS ORDERED: IV NORMAL SALINE 1000ML BAG 1,000 ML IV PRN ×2 (08:28)
[2020-05-12] MEDS ORDERED: 0.9 % SODIUM CHLORIDE 10 ML DISP.SYRIN. IV PRN ×2 (08:30)
[2020-05-12] MEDS ORDERED: DIALYSIS PATIENT. MC PRN ×2 (08:30)
[2020-05-12] MEDS ORDERED: ALBUMIN HUMAN 25% 200 ML IV PRN (08:30)
--- NOTE | 2020-05-12 09:09 | PDOC ---
BLAINE KEENE CLIENT EXPERIENCE SPECIALIST 05/12/20 0909: CARDIO Progress Notes Date and Time Date of Service 05/12/2020 Time of Evaluation 0850 Subjective Subjective: Other (intubated) Vitals Vitals Vital Signs Date Time Temp Pulse Resp B/P (MAP) Pulse Ox O2 Delivery O2 Flow Rate FiO2 05/12/20 07:39 97 Ventilator 05/12/20 06:00 63 22 146/92 (110) 05/12/20 04:00 97.8 97.8 05/11/20 16:04 15.0 Weight Weight [ ] Input and Output Intake and Output Intake and Output 05/12/20 07:00 Intake Total 2370.83 ml Output Total 1600 ml Balance 770.83 ml Intake Oral 0 ml IV Total 1514.83 ml Tube Feeding 640 ml Other 216 ml Output Urine Total 1600 ml # Voids 1 Laboratory Labs Laboratory Tests Test 05/12/20 03:10 White Blood Count 11.9 x10^3/uL (4.0-11.0) Red Blood Count 5.99 x10^6/uL (4.30-5.70) Hemoglobin 13.9 g/dL (13.0-17.5) Hematocrit 44.9 % (39.0-53.0) Mean Corpuscular Volume 75 fL (79-100) Mean Corpuscular Hemoglobin 23 pg (25-35) Mean Corpuscular Hemoglobin Concent 31 g/dL (31-37) Red Cell Distribution Width 17.6 % (11.5-14.5) Platelet Count 153 x10^3/uL (140-400) Heparin Anti-Xa Act, Unfractionated 0.22 IU/mL (0.30-0.70) Sodium Level 141 mmol/L (136-145) Potassium Level 4.5 mmol/L (3.5-5.1) Chloride Level 106 mmol/L (98-107) Carbon Dioxide Level 25 mmol/L (21-32) Anion Gap 10 (6-14) Blood Urea Nitrogen 52 mg/dL (8-26) Creatinine 2.7 mg/dL (0.7-1.3) Estimated GFR (Cockcroft-Gault) 29.7 BUN/Creatinine Ratio 19 (6-20) Glucose Level 194 mg/dL (70-99) Calcium Level 7.8 mg/dL (8.5-10.1) Total Bilirubin 0.5 mg/dL (0.2-1.0) Aspartate Amino Transf (AST/SGOT) 15 U/L (15-37) Alanine Aminotransferase (ALT/SGPT) 34 U/L (16-63) Alkaline Phosphatase 31 U/L (46-116) Total Protein 5.0 g/dL (6.4-8.2) Albumin 2.4 g/dL (3.4-5.0) Albumin/Globulin Ratio 0.9 (1.0-1.7) Microbiology Micro Microbiology 05/08/20 Blood Culture - Preliminary, Resulted NO GROWTH AFTER 3 DAYS Review of Systems Constitutional: yes: other (ON THE VENT SEDATED) Physical Exam Chest: Symmetric LUNGS: Other (intubated) Heart: RRR (SR with significant ectopies) Abdomen: Other (obese) Neurology: other (sedated) Assessment Assessment 1. Acute on chronic respiratory failure with AECOPD and acute CHF. s/p intubation. COVID negative. Still hypoxic. PE/RV ischemia part of the differential 2. NSTEMI; highest trop 1.6.likely demand mediated with above. No significant arrhythmias 3. Severe EVY: HD started per nephrology 4. Mild transaminitis 5. Leukocytosis 6. DM2: A1C 6.7. NEW? per PCP 7. Substance abuse; UDS + cocaine 8. Probable CONNER 9. Mild Cardiomyopathy: EF at 45% Recommendations 1. ASA. Avoid nephrotoxins. May start home norvasc if BP becomes labile. Clonidine PRN. Consider BB moving forward with cocaine cessation counseling 2. Neg for DVT. Needing HD. Empiric heparin for possible PE 3. Will review records from [facility] in [facility] [place]. when available. Limited records so far. 4. Consider further ischemic evaluation pending clinical course 5. Follow pulm recs. Supportive care 6. Discussed with RN as is wanting pt to transfer to [facility], [facility] deferred, defer to PCP Justicifation of Admission Dx: Justifications for Admission: Justification of Admission Dx: Yes CHF: Hemodynamic Instability Respiratory Failure: Mechanical Ventilation Acute COPD Exacerbation: Acute COPD Exacerbation Altered Mental Status: Altered Mental Status TINY MARSHALL MD 05/12/20 2387: CARDIO Progress Notes Plan Plan Pt. seen and examined. Agree with above CORRECTIVE THERAPIST note. Supportive care. BLAINE KEENE APRN May 12, 2020 09:09 TINY MARSHALL MD May 12, 2020 17:07
[2020-05-12] MEDS ORDERED: ANTI-COAG MONITOR BY PHARMACY. MC PRN (09:15)
--- NOTE | 2020-05-12 09:30 | PDOC ---
PULMONARY PROGRESS NOTES Subjective Patient remains on assist control ventilation FiO2 down to 65% currently undergoing hemodialysis Vitals Vital Signs Date Time Temp Pulse Resp B/P (MAP) Pulse Ox O2 Delivery O2 Flow Rate FiO2 05/12/20 09:00 78 22 177/104 (128) 98 Ventilator 05/12/20 08:00 98.4 98.4 05/11/20 16:04 15.0 Comments intubated/sedated Lungs: Other (decrease bs) Cardiovascular: S1 Abdomen: Soft, Other (obese) Extremities: Other (trace edema) Labs Laboratory Tests Test 05/11/20 05:52 05/11/20 08:00 05/12/20 03:10 White Blood Count 10.7 x10^3/uL (4.0-11.0) 11.9 x10^3/uL (4.0-11.0) Red Blood Count 5.88 x10^6/uL (4.30-5.70) 5.99 x10^6/uL (4.30-5.70) Hemoglobin 13.6 g/dL (13.0-17.5) 13.9 g/dL (13.0-17.5) Hematocrit 44.3 % (39.0-53.0) 44.9 % (39.0-53.0) Mean Corpuscular Volume 75 fL (79-100) 75 fL (79-100) Mean Corpuscular Hemoglobin 23 pg (25-35) 23 pg (25-35) Mean Corpuscular Hemoglobin Concent 31 g/dL (31-37) 31 g/dL (31-37) Red Cell Distribution Width 17.8 % (11.5-14.5) 17.6 % (11.5-14.5) Platelet Count 174 x10^3/uL (140-400) 153 x10^3/uL (140-400) Neutrophils (%) (Auto) 93 % (31-73) Lymphocytes (%) (Auto) 5 % (24-48) Monocytes (%) (Auto) 2 % (0-9) Eosinophils (%) (Auto) 0 % (0-3) Basophils (%) (Auto) 0 % (0-3) Neutrophils # (Auto) 10.0 x10^3/uL (1.8-7.7) Lymphocytes # (Auto) 0.5 x10^3/uL (1.0-4.8) Monocytes # (Auto) 0.2 x10^3/uL (0.0-1.1) Eosinophils # (Auto) 0.0 x10^3/uL (0.0-0.7) Basophils # (Auto) 0.0 x10^3/uL (0.0-0.2) Sodium Level 141 mmol/L (136-145) 141 mmol/L (136-145) Potassium Level 5.5 mmol/L (3.5-5.1) 4.5 mmol/L (3.5-5.1) Chloride Level 107 mmol/L (98-107) 106 mmol/L (98-107) Carbon Dioxide Level 23 mmol/L (21-32) 25 mmol/L (21-32) Anion Gap 11 (6-14) 10 (6-14) Blood Urea Nitrogen 72 mg/dL (8-26) 52 mg/dL (8-26) Creatinine 3.4 mg/dL (0.7-1.3) 2.7 mg/dL (0.7-1.3) Estimated GFR (Cockcroft-Gault) 22.8 29.7 BUN/Creatinine Ratio 21 (6-20) 19 (6-20) Glucose Level 240 mg/dL (70-99) 194 mg/dL (70-99) Calcium Level 7.6 mg/dL (8.5-10.1) 7.8 mg/dL (8.5-10.1) Total Bilirubin 0.3 mg/dL (0.2-1.0) 0.5 mg/dL (0.2-1.0) Aspartate Amino Transf (AST/SGOT) 11 U/L (15-37) 15 U/L (15-37) Alanine Aminotransferase (ALT/SGPT) 41 U/L (16-63) 34 U/L (16-63) Alkaline Phosphatase 31 U/L (46-116) 31 U/L (46-116) Total Protein 4.6 g/dL (6.4-8.2) 5.0 g/dL (6.4-8.2) Albumin 2.4 g/dL (3.4-5.0) 2.4 g/dL (3.4-5.0) Albumin/Globulin Ratio 1.1 (1.0-1.7) 0.9 (1.0-1.7) Hepatitis B Surface Antigen Nonreactive (Nonreactive) Hepatitis B Surface Antibody Nonreactive O2 Saturation 93 % (92-99) Arterial Blood pH 7.35 (7.35-7.45) Arterial Blood pCO2 at Patient Temp 37 mmHg (35-46) Arterial Blood pO2 at Patient Temp 70 mmHg (75-108) Arterial Blood HCO3 20 mmol/L (21-28) Arterial Blood Base Excess -5 mmol/L (-3-3) FiO2 75 Heparin Anti-Xa Act, Unfractionated 0.22 IU/mL (0.30-0.70) Laboratory Tests Test 05/12/20 03:10 White Blood Count 11.9 x10^3/uL (4.0-11.0) Red Blood Count 5.99 x10^6/uL (4.30-5.70) Hemoglobin 13.9 g/dL (13.0-17.5) Hematocrit 44.9 % (39.0-53.0) Mean Corpuscular Volume 75 fL (79-100) Mean Corpuscular Hemoglobin 23 pg (25-35) Mean Corpuscular Hemoglobin Concent 31 g/dL (31-37) Red Cell Distribution Width 17.6 % (11.5-14.5) Platelet Count 153 x10^3/uL (140-400) Heparin Anti-Xa Act, Unfractionated 0.22 IU/mL (0.30-0.70) Sodium Level 141 mmol/L (136-145) Potassium Level 4.5 mmol/L (3.5-5.1) Chloride Level 106 mmol/L (98-107) Carbon Dioxide Level 25 mmol/L (21-32) Anion Gap 10 (6-14) Blood Urea Nitrogen 52 mg/dL (8-26) Creatinine 2.7 mg/dL (0.7-1.3) Estimated GFR (Cockcroft-Gault) 29.7 BUN/Creatinine Ratio 19 (6-20) Glucose Level 194 mg/dL (70-99) Calcium Level 7.8 mg/dL (8.5-10.1) Total Bilirubin 0.5 mg/dL (0.2-1.0) Aspartate Amino Transf (AST/SGOT) 15 U/L (15-37) Alanine Aminotransferase (ALT/SGPT) 34 U/L (16-63) Alkaline Phosphatase 31 U/L (46-116) Total Protein 5.0 g/dL (6.4-8.2) Albumin 2.4 g/dL (3.4-5.0) Albumin/Globulin Ratio 0.9 (1.0-1.7) Medications Active Scripts Medications Dose Route/Sig Max Daily Dose Days Date Category [amlodipine benazep] Unknown Dose PO 05/08/20 Reported Proventil Hfa (Albuterol Sulfate) 6.7 Gm Hfa.aer.ad 1 Puff INH PRN Q6HRS PRN 05/08/20 Reported Advair 100-50 Diskus (Fluticasone/Salmeterol) 1 Each Disk.w.dev 1 Puff IH BID 05/08/20 Reported Comments IMPRESSION:New right internal jugular central venous catheter with tip at the superior cavoatrial junction. No pneumothorax. Otherwise unchanged. Impression . 1. Acute hypoxic and hypercapnic respiratory failure secondary to multifactorial etiologies including suspected chronic obstructive pulmonary disease with acute exacerbation, non-ST myocardial infarction, and cocaine overdose. 2. Underlying chronic obstructive pulmonary disease, clinically suspected. 3. Abnormal chest x-ray with prominent interstitial markings, probably related to mild interstitial edema.improved 4. Abnormal troponin consistent with non-ST myocardial infarction./? RV infarction 5. Acute kidney injury. 6. Abnormal LFTs. Could be related to hypoperfusion. 7. Urine drug screen positive for cocaine. 8. Possible pulmonary embolism Plan . Discussed with RN, proceed with CT angiogram Had dialysis yesterday and today, review chest x-ray, recommend negative fluid balance Continue assist control ventilation We will obtain CT angiogram IV steroids Follow cardiology input Discussed with RT Total cumulative critical care time of 30 minutes, reviewing data, labs, chest x-ray, and formulating a plan TOÑA WAGONER MD May 12, 2020 09:30
[2020-05-12 09:34] LABS: FIO2 ABG 70
--- NOTE | 2020-05-12 10:52 | PDOC ---
Renal-Progress Notes Subjective Notes Notes INTUBATED History of Present Illness Hx of present illness STABLE Vitals Vitals Vital Signs Date Time Temp Pulse Resp B/P (MAP) Pulse Ox O2 Delivery O2 Flow Rate FiO2 05/12/20 10:19 96 15.0 05/12/20 10:00 70 22 159/106 (123) Ventilator 05/12/20 08:00 98.4 98.4 Weight Weight [ ] I.O. Intake and Output Intake and Output 05/12/20 07:00 Intake Total 2370.83 ml Output Total 1600 ml Balance 770.83 ml Intake Oral 0 ml IV Total 1514.83 ml Tube Feeding 640 ml Other 216 ml Output Urine Total 1600 ml # Voids 1 Labs Labs Laboratory Tests Test 05/12/20 03:10 05/12/20 07:45 05/12/20 09:47 White Blood Count 11.9 x10^3/uL (4.0-11.0) Red Blood Count 5.99 x10^6/uL (4.30-5.70) Hemoglobin 13.9 g/dL (13.0-17.5) Hematocrit 44.9 % (39.0-53.0) Mean Corpuscular Volume 75 fL (79-100) Mean Corpuscular Hemoglobin 23 pg (25-35) Mean Corpuscular Hemoglobin Concent 31 g/dL (31-37) Red Cell Distribution Width 17.6 % (11.5-14.5) Platelet Count 153 x10^3/uL (140-400) Heparin Anti-Xa Act, Unfractionated 0.22 IU/mL (0.30-0.70) 0.57 IU/mL (0.30-0.70) Sodium Level 141 mmol/L (136-145) Potassium Level 4.5 mmol/L (3.5-5.1) Chloride Level 106 mmol/L (98-107) Carbon Dioxide Level 25 mmol/L (21-32) Anion Gap 10 (6-14) Blood Urea Nitrogen 52 mg/dL (8-26) Creatinine 2.7 mg/dL (0.7-1.3) Estimated GFR (Cockcroft-Gault) 29.7 BUN/Creatinine Ratio 19 (6-20) Glucose Level 194 mg/dL (70-99) Calcium Level 7.8 mg/dL (8.5-10.1) Total Bilirubin 0.5 mg/dL (0.2-1.0) Aspartate Amino Transf (AST/SGOT) 15 U/L (15-37) Alanine Aminotransferase (ALT/SGPT) 34 U/L (16-63) Alkaline Phosphatase 31 U/L (46-116) Total Protein 5.0 g/dL (6.4-8.2) Albumin 2.4 g/dL (3.4-5.0) Albumin/Globulin Ratio 0.9 (1.0-1.7) O2 Saturation 93 % (92-99) Arterial Blood pH 7.40 (7.35-7.45) Arterial Blood pCO2 at Patient Temp 39 mmHg (35-46) Arterial Blood pO2 at Patient Temp 70 mmHg (75-108) Arterial Blood HCO3 23 mmol/L (21-28) Arterial Blood Base Excess -1 mmol/L (-3-3) FiO2 70 Micro Micro Microbiology 05/08/20 Blood Culture - Preliminary, Resulted NO GROWTH AFTER 3 DAYS Review of Systems Constitutional: yes: other (ON THE VENT SEDATED) Physical Exam General Appearance: no apparent distress Skin: warm Respiratory: ventilator (Mode:A/C), decreased breath sounds Heart: S1S2 Abdomen: soft, bowel sounds present Genitourinary: bladder flat Extremities: pulses present Neurology: other (sedated) Assessment Assessment IMP EVY - ATN WITH CR WORSE AND DECREASED UO HYPERKALEMIA POSSIBLE RHABDOMYOLYSIS-CK OF 441 ACUTE ON CHRONIC HYPERCARBIC HYPOXIC RESP FAILURE-FIO2 OF 70% SUBSTANCE ABUSE-COCAINE LEUCOCYTOSIS-PROB REACTIVE NSTEMI HYPERGLYCEMIA HTN PLAN COVID 19 NEG VENT SUPPORT CONT SALINE HYDRATION ? PE - OK WITH CTA IF NEEDED CONT TF-CHANGE TO NEPRO F/U CPK LEVEL CARDIOLOGY AND PULM EVAL HD AGAIN TODAY UF MINIMAL D/W PULM AND CARDIOLOGY UPDATED CLOVER REID MD May 12, 2020 10:52
--- NOTE | 2020-05-12 11:27 | PDOC ---
PROGRESS NOTES Chief Complaint Chief Complaint Assessment/Plan Impression: Respiratory failure requiring vent support 75% fio2 COPD ACUTE HYPOXIC / HYPERCAPNIC RESP FAILURE Slight improvement with persistent basilar density bilaterally more on the left. CXR 05/10 Screen COVID-19 virus infection neg 05/09 NSTEMI (non-ST elevated myocardial infarction) COCAINE ABUSE, present on admit Morbid obesity EVY EVY Echogenic appearing bilateral kidneys probably medical renal disease., worse No evidence of hydronephrosis. Echo to assess LV systolic function pending negative COVID testing Will review records from [facility] in [place], Consider further ischemic evaluation pending course of hospitalization Plan: ICU BED follow pulmonary recommendations for vent management. AC mode, 70%FIO2 remains intubated/sedated [employer] recommendations greatly appreciated. VENT SUPPORT heparin drip GI PROPHYLAXIS TAPERING IV STEROIDS covid 19 screen negative. Nephrology following cpk Echo to assess LV systolic function pending negative COVID testing review records from [facility] in [place], [place]. when available further ischemic evaluation pending course of hospitalization picc 05/10 BB moving forward with cocaine cessation counseling VTE Prophylaxis Ordered VTE Prophylaxis Devices: Yes VTE Pharmacological Prophylaxi: Yes History of Present Illness History of Present Illness guarded prognosis 05/11 EVY WORSE, planning dialysis cr 3.4 wt 121 kg , family request transfer to [facility] notified, pending 05/12 patient will start dialysis, discussed with php consultant. No acute events reported overnight, critically stable. Vitals Vitals Vital Signs Date Time Temp Pulse Resp B/P (MAP) Pulse Ox O2 Delivery O2 Flow Rate FiO2 05/12/20 11:10 97 Ventilator 05/12/20 10:49 15.0 05/12/20 10:00 70 22 159/106 (123) 05/12/20 08:00 98.4 98.4 Physical Exam Physical Exam Heart: RRR Abdomen: obese Neurology: SEDATED General: No acute distress, Other (INTUBATED AND SEDATED) Heart: Regular rate, Normal S1, Normal S2 Lungs: Other (decrease bs) Abdomen: Normal bowel sounds, Soft, No tenderness Extremities: No clubbing, No cyanosis Skin: No breakdown, No significant lesion Labs LABS Laboratory Tests Test 05/12/20 03:10 05/12/20 07:45 05/12/20 09:47 White Blood Count 11.9 x10^3/uL (4.0-11.0) Red Blood Count 5.99 x10^6/uL (4.30-5.70) Hemoglobin 13.9 g/dL (13.0-17.5) Hematocrit 44.9 % (39.0-53.0) Mean Corpuscular Volume 75 fL (79-100) Mean Corpuscular Hemoglobin 23 pg (25-35) Mean Corpuscular Hemoglobin Concent 31 g/dL (31-37) Red Cell Distribution Width 17.6 % (11.5-14.5) Platelet Count 153 x10^3/uL (140-400) Heparin Anti-Xa Act, Unfractionated 0.22 IU/mL (0.30-0.70) 0.57 IU/mL (0.30-0.70) Sodium Level 141 mmol/L (136-145) Potassium Level 4.5 mmol/L (3.5-5.1) Chloride Level 106 mmol/L (98-107) Carbon Dioxide Level 25 mmol/L (21-32) Anion Gap 10 (6-14) Blood Urea Nitrogen 52 mg/dL (8-26) Creatinine 2.7 mg/dL (0.7-1.3) Estimated GFR (Cockcroft-Gault) 29.7 BUN/Creatinine Ratio 19 (6-20) Glucose Level 194 mg/dL (70-99) Calcium Level 7.8 mg/dL (8.5-10.1) Total Bilirubin 0.5 mg/dL (0.2-1.0) Aspartate Amino Transf (AST/SGOT) 15 U/L (15-37) Alanine Aminotransferase (ALT/SGPT) 34 U/L (16-63) Alkaline Phosphatase 31 U/L (46-116) Total Protein 5.0 g/dL (6.4-8.2) Albumin 2.4 g/dL (3.4-5.0) Albumin/Globulin Ratio 0.9 (1.0-1.7) O2 Saturation 93 % (92-99) Arterial Blood pH 7.40 (7.35-7.45) Arterial Blood pCO2 at Patient Temp 39 mmHg (35-46) Arterial Blood pO2 at Patient Temp 70 mmHg (75-108) Arterial Blood HCO3 23 mmol/L (21-28) Arterial Blood Base Excess -1 mmol/L (-3-3) FiO2 70 Assessment and Plan Assessmemt and Plan Problems Medical Problems: (1) Cocaine abuse Status: Acute (2) NSTEMI (non-ST elevated myocardial infarction) Status: Acute (3) Respiratory failure Status: Acute (4) Suspected COVID-19 virus infection Status: Acute Comment Review of Relevant I have reviewed the following items jeffrey (where applicable) has been applied. Labs Laboratory Tests Test 05/11/20 05:52 05/11/20 08:00 05/12/20 03:10 05/12/20 07:45 White Blood Count 10.7 x10^3/uL (4.0-11.0) 11.9 x10^3/uL (4.0-11.0) Red Blood Count 5.88 x10^6/uL (4.30-5.70) 5.99 x10^6/uL (4.30-5.70) Hemoglobin 13.6 g/dL (13.0-17.5) 13.9 g/dL (13.0-17.5) Hematocrit 44.3 % (39.0-53.0) 44.9 % (39.0-53.0) Mean Corpuscular Volume 75 fL (79-100) 75 fL (79-100) Mean Corpuscular Hemoglobin 23 pg (25-35) 23 pg (25-35) Mean Corpuscular Hemoglobin Concent 31 g/dL (31-37) 31 g/dL (31-37) Red Cell Distribution Width 17.8 % (11.5-14.5) 17.6 % (11.5-14.5) Platelet Count 174 x10^3/uL (140-400) 153 x10^3/uL (140-400) Neutrophils (%) (Auto) 93 % (31-73) Lymphocytes (%) (Auto) 5 % (24-48) Monocytes (%) (Auto) 2 % (0-9) Eosinophils (%) (Auto) 0 % (0-3) Basophils (%) (Auto) 0 % (0-3) Neutrophils # (Auto) 10.0 x10^3/uL (1.8-7.7) Lymphocytes # (Auto) 0.5 x10^3/uL (1.0-4.8) Monocytes # (Auto) 0.2 x10^3/uL (0.0-1.1) Eosinophils # (Auto) 0.0 x10^3/uL (0.0-0.7) Basophils # (Auto) 0.0 x10^3/uL (0.0-0.2) Sodium Level 141 mmol/L (136-145) 141 mmol/L (136-145) Potassium Level 5.5 mmol/L (3.5-5.1) 4.5 mmol/L (3.5-5.1) Chloride Level 107 mmol/L (98-107) 106 mmol/L (98-107) Carbon Dioxide Level 23 mmol/L (21-32) 25 mmol/L (21-32) Anion Gap 11 (6-14) 10 (6-14) Blood Urea Nitrogen 72 mg/dL (8-26) 52 mg/dL (8-26) Creatinine 3.4 mg/dL (0.7-1.3) 2.7 mg/dL (0.7-1.3) Estimated GFR (Cockcroft-Gault) 22.8 29.7 BUN/Creatinine Ratio 21 (6-20) 19 (6-20) Glucose Level 240 mg/dL (70-99) 194 mg/dL (70-99) Calcium Level 7.6 mg/dL (8.5-10.1) 7.8 mg/dL (8.5-10.1) Total Bilirubin 0.3 mg/dL (0.2-1.0) 0.5 mg/dL (0.2-1.0) Aspartate Amino Transf (AST/SGOT) 11 U/L (15-37) 15 U/L (15-37) Alanine Aminotransferase (ALT/SGPT) 41 U/L (16-63) 34 U/L (16-63) Alkaline Phosphatase 31 U/L (46-116) 31 U/L (46-116) Total Protein 4.6 g/dL (6.4-8.2) 5.0 g/dL (6.4-8.2) Albumin 2.4 g/dL (3.4-5.0) 2.4 g/dL (3.4-5.0) Albumin/Globulin Ratio 1.1 (1.0-1.7) 0.9 (1.0-1.7) Hepatitis B Surface Antigen Nonreactive (Nonreactive) Hepatitis B Surface Antibody Nonreactive O2 Saturation 93 % (92-99) 93 % (92-99) Arterial Blood pH 7.35 (7.35-7.45) 7.40 (7.35-7.45) Arterial Blood pCO2 at Patient Temp 37 mmHg (35-46) 39 mmHg (35-46) Arterial Blood pO2 at Patient Temp 70 mmHg (75-108) 70 mmHg (75-108) Arterial Blood HCO3 20 mmol/L (21-28) 23 mmol/L (21-28) Arterial Blood Base Excess -5 mmol/L (-3-3) -1 mmol/L (-3-3) FiO2 75 70 Heparin Anti-Xa Act, Unfractionated 0.22 IU/mL (0.30-0.70) Test 05/12/20 09:47 Heparin Anti-Xa Act, Unfractionated 0.57 IU/mL (0.30-0.70) Laboratory Tests Test 05/12/20 03:10 05/12/20 07:45 05/12/20 09:47 White Blood Count 11.9 x10^3/uL (4.0-11.0) Red Blood Count 5.99 x10^6/uL (4.30-5.70) Hemoglobin 13.9 g/dL (13.0-17.5) Hematocrit 44.9 % (39.0-53.0) Mean Corpuscular Volume 75 fL (79-100) Mean Corpuscular Hemoglobin 23 pg (25-35) Mean Corpuscular Hemoglobin Concent 31 g/dL (31-37) Red Cell Distribution Width 17.6 % (11.5-14.5) Platelet Count 153 x10^3/uL (140-400) Heparin Anti-Xa Act, Unfractionated 0.22 IU/mL (0.30-0.70) 0.57 IU/mL (0.30-0.70) Sodium Level 141 mmol/L (136-145) Potassium Level 4.5 mmol/L (3.5-5.1) Chloride Level 106 mmol/L (98-107) Carbon Dioxide Level 25 mmol/L (21-32) Anion Gap 10 (6-14) Blood Urea Nitrogen 52 mg/dL (8-26) Creatinine 2.7 mg/dL (0.7-1.3) Estimated GFR (Cockcroft-Gault) 29.7 BUN/Creatinine Ratio 19 (6-20) Glucose Level 194 mg/dL (70-99) Calcium Level 7.8 mg/dL (8.5-10.1) Total Bilirubin 0.5 mg/dL (0.2-1.0) Aspartate Amino Transf (AST/SGOT) 15 U/L (15-37) Alanine Aminotransferase (ALT/SGPT) 34 U/L (16-63) Alkaline Phosphatase 31 U/L (46-116) Total Protein 5.0 g/dL (6.4-8.2) Albumin 2.4 g/dL (3.4-5.0) Albumin/Globulin Ratio 0.9 (1.0-1.7) O2 Saturation 93 % (92-99) Arterial Blood pH 7.40 (7.35-7.45) Arterial Blood pCO2 at Patient Temp 39 mmHg (35-46) Arterial Blood pO2 at Patient Temp 70 mmHg (75-108) Arterial Blood HCO3 23 mmol/L (21-28) Arterial Blood Base Excess -1 mmol/L (-3-3) FiO2 70 Microbiology 05/08/20 Blood Culture - Preliminary, Resulted NO GROWTH AFTER 3 DAYS Medications Current Medications Propofol 50 ml @ As Directed STK-MED ONCE IV ; Start 05/08/20 at 07:33; Stop 05/08/20 at 07:33; Status DC Propofol 100 ml @ 0 mls/hr CONT PRN IV SEE PROTOCOL Last administered on 05/12/20at 08:29; Start 05/08/20 at 07:45 Fentanyl Citrate (Fentanyl 2ml Vial) 50 mcg PRN Q1HR PRN IV SEE COMMENTS Last administered on 05/08/20at 12:44; Start 05/08/20 at 07:45 Chlorhexidine Gluconate (Peridex) 15 ml BID MM Last administered on 05/12/20at 08:28; Start 05/08/20 at 09:00 Etomidate (Amidate) 20 mg 1X ONCE IV Last administered on 05/08/20at 07:30; Start 05/08/20 at 07:45; Stop 05/08/20 at 09:04; Status DC Succinylcholine Chloride (Anectine) 100 mg 1X ONCE IV Last administered on 05/08/20at 07:31; Start 05/08/20 at 07:45; Stop 05/08/20 at 09:04; Status DC Albuterol/ Ipratropium (Duoneb) 6 ml 1X ONCE NEB ; Start 05/08/20 at 07:45; Stop 05/08/20 at 09:04; Status DC Methylprednisolone Sodium Succinate (SOLU-Medrol 125MG VIAL) 125 mg 1X ONCE IV Last administered on 05/08/20at 08:31; Start 05/08/20 at 07:45; Stop 05/08/20 at 09:04; Status DC Albuterol Sulfate (Ventolin Neb Soln) 2.5 mg 1X ONCE NEB ; Start 05/08/20 at 07:45; Stop 05/08/20 at 08:56; Status DC Ceftriaxone Sodium (Rocephin) 1 gm 1X ONCE IVP Last administered on 05/08/20at 08:31; Start 05/08/20 at 07:45; Stop 05/08/20 at 09:04; Status DC Propofol (Diprivan) 40 mg 1X ONCE IV ; Start 05/08/20 at 08:00; Stop 05/08/20 a t 09:04; Status DC Fentanyl Citrate 30 ml @ 0 mls/hr CONT PRN IV SEE PROTOCOL Last administered on 05/12/20at 10:19; Start 05/08/20 at 08:15 Midazolam HCl 100 ml @ 0 mls/hr CONT PRN IV SEE PROTOCOL Last administered on 05/12/20at 01:05; Start 05/08/20 at 08:15 Sodium Chloride 1,000 ml @ 1,000 mls/hr 1X ONCE IV Last administered on 05/08/20at 08:47; Start 05/08/20 at 08:30; Stop 05/08/20 at 09:29; Status DC Midazolam HCl (Versed) 5 mg 1X ONCE IV Last administered on 05/08/20at 08:33; Start 05/08/20 at 08:30; Stop 05/08/20 at 09:04; Status DC Ondansetron HCl (Zofran) 4 mg PRN Q8HRS PRN IV NAUSEA/VOMITING; Start 05/08/20 at 08:45; Stop 05/09/20 at 08:44; Status DC Aspirin (Aspirin Rectal Supp) 300 mg 1X ONCE HI Last administered on 05/08/20at 10:00; Start 05/08/20 at 08:45; Stop 05/08/20 at 09:04; Status DC Sodium Chloride (Normal Saline Flush) 3 ml QSHIFT PRN IV AFTER MEDS AND BLOOD DRAWS; Start 05/08/20 at 11:30; Stop 05/08/20 at 18:55; Status DC Sodium Chloride 1,000 ml @ 60 mls/hr [id number] IV Last administered on 05/08/20at 12:53; Start 05/08/20 at 11:24; Stop 05/08/20 at 18:55; Status DC Ondansetron HCl (Zofran) 4 mg PRN Q4HRS PRN IV NAUSEA/VOMITING; Start 05/08/20 at 11:30; Stop 05/08/20 at 18:55; Status DC Acetaminophen (Tylenol Supp) 650 mg PRN Q4HRS PRN HI TEMP OVER 100.4F OR MILD PAIN; Start 05/08/20 at 11:30; Stop 05/08/20 at 18:47; Status DC Sodium Monofluorophosphate (Fleet Adult) 133 ml PRN DAILY PRN HI CONSTIPATION; Start 05/08/20 at 11:30; Stop 05/08/20 at 18:55; Status DC Albuterol/ Ipratropium (Duoneb) 3 ml Q4H NEB ; Start 05/08/20 at 11:30; Stop 05/08/20 at 15:37; Status DC Enoxaparin Sodium (Lovenox 40mg Syringe) 40 mg DAILY SQ ; Start 05/09/20 at 09:00; Stop 05/08/20 at 18:54; Status DC Pantoprazole Sodium (PROTONIX VIAL for IV PUSH) 40 mg DAILYAC IVP Last administered on 05/12/20at 08:11; Start 05/08/20 at 11:30 Etomidate (Amidate) 40 mg 1X ONCE IV Last administered on 05/08/20at 07:57; Start 05/08/20 at 07:55; Stop 05/08/20 at 12:05; Status DC Methylprednisolone Sodium Succinate (SOLU-Medrol 125MG VIAL) 60 mg Q8HRS IV Last administered on 05/12/20at 05:54; Start 05/08/20 at 14:00 Midazolam HCl (Versed) 5 mg PRN Q15MIN PRN IV SEDATION Last administered on 05/08/20at 12:32; Start 05/08/20 at 08:00 Enoxaparin Sodium (Lovenox Per Pharmacy Prophylaxis Dosing) 1 each PRN DAILY PRN MC SEE COMMENTS; Start 05/08/20 at 16:00; Stop 05/10/20 at 09:14; Status DC Sodium Chloride (Normal Saline Flush) 3 ml QSHIFT PRN IV AFTER MEDS AND BLOOD DRAWS; Start 05/08/20 at 16:15 Sodium Chloride 1,000 ml @ 125 mls/hr Q8H IV Last administered on 05/12/20at 01:04; Start 05/08/20 at 16:01 Ondansetron HCl (Zofran) 4 mg PRN Q4HRS PRN IV NAUSEA/VOMITING; Start 05/08/20 at 16:15 Acetaminophen (Tylenol Supp) 650 mg PRN Q4HRS PRN HI TEMP OVER 100.4F OR MILD PAIN; Start 05/08/20 at 16:15 Sodium Monofluorophosphate (Fleet Adult) 133 ml PRN DAILY PRN HI CONSTIPATION; Start 05/08/20 at 16:15 Albuterol/ Ipratropium (Duoneb) 3 ml Q4H NEB ; Start 05/08/20 at 16:15; Stop 05/08/20 at 18:45; Status DC Enoxaparin Sodium (Lovenox 40mg Syringe) 40 mg Q24H SQ Last administered on 05/09/20at 17:04; Start 05/08/20 at 17:00; Stop 05/10/20 at 09:14; Status DC Ceftriaxone Sodium (Rocephin) 1 gm Q24H IVP Last administered on 05/12/20at 08:11; Start 05/09/20 at 08:00 Aspirin (Aspirin Chewable) 81 mg DAILYWBKFT PO ; Start 05/08/20 at 17:30; Stop 05/08/20 at 17:27; Status DC Aspirin (Aspirin Chewable) 81 mg DAILYWBKFT PO Last administered on 05/12/20at 08:11; Start 05/09/20 at 08:00 Albuterol Sulfate (Ventolin Neb Soln) 2.5 mg PRN Q4HRS PRN NEB SHORTNESS OF BREATH; Start 05/08/20 at 19:00 Amlodipine Besylate (Norvasc) 10 mg 1X ONCE PO Last administered on 05/09/20at 14:31; Start 05/09/20 at 14:30; Stop 05/09/20 at 14:31; Status DC Clonidine HCl (Catapres) 0.1 mg PRN Q2HR PRN PO HYPERTENSION; Start 05/09/20 at 14:30 Enoxaparin Sodium (Lovenox Per Pharmacy Treatment Dosing) 1 each PRN DAILY PRN MC SEE COMMENTS; Start 05/10/20 at 09:30; Status Cancel Enoxaparin Sodium (Lovenox 120mg Syringe) 120 mg DAILY SQ Last administered on 05/10/20at 10:19; Start 05/10/20 at 10:00; Stop 05/10/20 at 10:48; Status DC Heparin Sodium/ Dextrose 250 ml @ 10 mls/hr CONT PRN IV PER PROTOCOL Last administered on 05/11/20at 20:59; Start 05/10/20 at 11:00 Heparin Sodium (Porcine) (Heparin Sodium) 2,950 unit PRN Q6HRS PRN IV FOR UFH LEVEL LESS THAN 0.2; Start 05/10/20 at 11:00 Polyethylene Glycol (miraLAX PACKET) 17 gm PRN DAILY PRN PO CONSTIPATION Last administered on 05/11/20at 11:20; Start 05/10/20 at 16:00 Lidocaine HCl (Buffered Lidocaine 1%) 3 ml STK-MED ONCE .ROUTE ; Start 05/11/20 at 13:30; Stop 05/11/20 at 13:30; Status DC Lidocaine HCl (Buffered Lidocaine 1%) 6 ml 1X ONCE INJ Last administered on 05/11/20at 13:50; Start 05/11/20 at 14:00; Stop 05/11/20 at 14:01; Status DC Sodium Chloride 1,000 ml @ 1,000 mls/hr Q1H PRN IV hypotension; Start 05/11/20 at 15:19; Stop 05/11/20 at 21:18; Status DC Info (PHARMACY MONITORING -- do not chart) 1 each PRN DAILY PRN MC SEE COMMENTS; Start 05/11/20 at 15:30; Status Cancel Info (PHARMACY MONITORING -- do not chart) 1 each PRN DAILY PRN MC SEE COMMENTS; Start 05/11/20 at 15:30; Status UNV Sodium Chloride 1,000 ml @ 1,000 mls/hr Q1H PRN IV hypotension; Start 05/12/20 at 08:28; Stop 05/12/20 at 14:27 Albumin Human 200 ml @ 200 mls/hr 1X PRN PRN IV Hypotension; Start 05/12/20 at 08:30; Stop 05/12/20 at 14:29 Sodium Chloride (Normal Saline Flush) 10 ml 1X PRN PRN IV AP catheter pack; Start 05/12/20 at 08:30; Stop 05/13/20 at 08:29 Sodium Chloride (Normal Saline Flush) 10 ml 1X PRN PRN IV RETORT FIRER catheter pack; Start 05/12/20 at 08:30; Stop 05/13/20 at 08:29 Sodium Chloride 1,000 ml @ 400 mls/hr Q2H30M PRN IV PATENCY; Start 05/12/20 at 08:28; Stop 05/12/20 at 20:27 Info (PHARMACY MONITORING -- do not chart) 1 each PRN DAILY PRN MC SEE COMMENTS; Start 05/12/20 at 08:30; Status UNV Info (PHARMACY MONITORING -- do not chart) 1 each PRN DAILY PRN MC SEE COMMENTS; Start 05/12/20 at 08:30 Info (Anti-Coagulation Monitoring By Pharmacy) 1 each PRN DAILY PRN MC SEE COMMENTS; Start 05/12/20 at 09:15 Active Scripts Active Reported [amlodipine benazep] Unknown Dose PO Proventil Hfa (Albuterol Sulfate) 6.7 Gm Hfa.aer.ad 1 Puff INH PRN Q6HRS PRN Advair 100-50 Diskus (Fluticasone/Salmeterol) 1 Each Disk.w.dev 1 Puff IH BID Vitals/I & O Vital Sign - Last 24 Hours 05/11/20 05/11/20 05/11/20 05/11/20 12:00 12:00 13:00 13:28 Temp 97.9 97.9 Pulse 56 58 Resp 22 22 B/P (MAP) 120/60 (80) 137/97 (110) Pulse Ox 94 94 95 O2 Delivery Ventilator Mechanical Ventilator Ventilator Ventilator 05/11/20 05/11/20 05/11/20 05/11/20 14:00 15:00 15:35 16:00 Temp 97.7 97.7 Pulse 60 64 64 Resp 22 22 22 B/P (MAP) 127/93 (104) 119/84 (96) 129/78 (95) Pulse Ox 96 95 95 96 O2 Delivery Ventilator Ventilator Ventilator Ventilator 05/11/20 05/11/20 05/11/20 05/11/20 16:00 16:04 16:34 17:07 Pulse 64 Resp 22 22 B/P (MAP) 127/82 (97) Pulse Ox 95 96 94 O2 Delivery Mechanical Ventilator Ventilator Ventilator O2 Flow Rate 15.0 05/11/20 05/11/20 05/11/20 05/11/20 18:00 18:05 19:00 20:00 Pulse 64 72 Resp 22 26 B/P (MAP) 146/55 (85) 149/94 (112) Pulse Ox 95 93 93 O2 Delivery Ventilator Ventilator Ventilator Mechanical Ventilator 05/11/20 05/11/20 05/11/20 05/11/20 20:00 20:06 21:05 22:00 Temp 97.4 97.4 Pulse 75 62 60 Resp 22 22 22 B/P (MAP) 159/93 (115) 151/91 (111) 138/95 (109) Pulse Ox 95 95 96 97 O2 Delivery Ventilator Ventilator Ventilator Ventilator 05/11/20 05/11/20 05/12/20 05/12/20 23:00 23:36 00:00 00:00 Temp 97.6 97.6 Pulse 61 65 Resp 22 22 B/P (MAP) 140/95 (110) 144/93 (110) Pulse Ox 97 96 96 O2 Delivery Ventilator Ventilator Mechanical Ventilator Ventilator 05/12/20 05/12/20 05/12/20 05/12/20 01:00 02:00 02:30 03:00 Pulse 64 78 74 Resp 22 22 22 B/P (MAP) 149/91 (110) 151/98 (115) 144/99 (114) Pulse Ox 97 87 91 92 O2 Delivery Ventilator Ventilator Ventilator 05/12/20 05/12/20 05/12/20 05/12/20 03:57 04:00 04:00 05:00 Temp 97.8 97.8 Pulse 73 72 Resp 22 22 B/P (MAP) 135/91 (106) 141/91 (108) Pulse Ox 96 95 96 O2 Delivery Ventilator Mechanical Ventilator Ventilator Ventilator 05/12/20 05/12/20 05/12/20 05/12/20 06:00 07:00 07:39 08:00 Temp 98.4 98.4 Pulse 63 60 70 Resp 22 22 B/P (MAP) 146/92 (110) 150/104 (119) 169/102 (124) Pulse Ox 98 98 97 95 O2 Delivery Ventilator Ventilator Ventilator Ventilator 05/12/20 05/12/20 05/12/20 05/12/20 08:00 09:00 10:00 10:19 Pulse 78 70 Resp 22 B/P (MAP) 177/104 (128) 159/106 (123) Pulse Ox 98 96 96 O2 Delivery Mechanical Ventilator Ventilator Ventilator O2 Flow Rate 15.0 05/12/20 05/12/20 10:49 11:10 Pulse Ox 97 97 O2 Delivery Ventilator O2 Flow Rate 15.0 Intake and Output 05/11/20 05/11/20 05/12/20 15:00 23:00 07:00 Intake Total 200 ml 615 ml 1555.83 ml Output Total 470 ml 690 ml 440 ml Balance -270 ml -75 ml 1115.83 ml PRASANNA FERNANDES MD May 12, 2020 11:27
[2020-05-12] MEDS ORDERED: CONTRAST GIVEN. MC PRN (11:45)
[2020-05-12] MEDS ORDERED: IOHEXOL 350 MG/ML 100 ML VIAL. IV ONE (11:45)
[2020-05-12] MEDS ORDERED: IV DEXTROSE 5% 250 ML BAG. IV PRN (12:45)
[2020-05-12] MEDS ORDERED: DEXTROSE 50% 25 GM / 50ML DISP.SYRIN. IV PRN (12:45)
--- NOTE | 2020-05-12 14:20 | NUR ---
SS following up with discharge planning. SS reviewed pt chart and discussed with pt RN. [facility] contacted SS and declined transfer due to capacity. Pt remains on the vent at this time. Pt having CT today. SS will continue to follow for discharge planning.
[2020-05-12] MEDS: INSULIN LISPRO 300 UNITS/3 ML VIAL. SQ SCH ×2 (15:07→18:16)
--- NOTE | 2020-05-12 16:22 | RAD ---
EXAM: CT chest with contrast - pulmonary embolus protocol CLINICAL HISTORY: Reason: RESPIRATORY FAILURE / Spl. Instructions: INJ 100ML OMNI 350 PT TO HAVE DIALYSIS IN AM / History: . COMPARISON: None. TECHNIQUE: CT of the chest following the administration of intravenous contrast during the pulmonary arterial phase. Axial, coronal and sagittal reformatted images were generated including MIP images. ---PQRS compliance statement - One or more of the following individualized dose reduction techniques were utilized for this study: 1. Automated exposure control 2. Adjustment of the mA and/or kV according to patient size 3. Use of iterative reconstruction technique--- FINDINGS: CHEST: Diagnostic quality: Borderline adequate contrast bolus although parenchymal opacities and pleural effusions limited evaluation of distal pulmonary arteries. Pulmonary emboli: No pulmonary emboli to the level of the segmental branches. More peripheral vessels are not well assessed. Right heart strain: None Pulmonary arteries: Normal in caliber. ET tube tip terminates within the mid to distal thoracic trachea. Enteric tube tip terminates within the body of the stomach. Vascular catheter terminates within the distal SVC. Heart is not enlarged. Small pericardial effusion. Prominent pericardial recesses are seen. No mediastinal or hilar lymphadenopathy. There is volume loss with lobar collapse of the lower lobes bilaterally as well as a portion of the middle lobe. No obvious obstructing mass is identified linear opacities in the lingula likely scarring/atelectasis. Background of emphysematous change. Small to moderate bilateral pleural effusions. No axillary lymphadenopathy. Thyroid is grossly unremarkable. No aggressive osseous lesion is definitively seen. Visualized Upper abdomen: 7 mm right adrenal nodule is indeterminate. Otherwise upper abdomen is unremarkable. Trace perihepatic ascites. Bones: No aggressive osseous lesion is seen. IMPRESSION: 1. No evidence for acute pulmonary embolus the level of the subsegmental branches. More peripheral vessels are not well assessed. 2. Are seen moderate bilateral pleural effusions are seen. 3. Lower atelectasis of the lower lobes and atelectasis of the middle lobe without obvious obstructing mass, etiology is uncertain. Of note there may be small hilar lymph nodes bilaterally that are secured by the pleural effusions and hilar infiltration. Consider further evaluation with bronchoscopy or short interval follow-up CT following resolution of the acute process to further delineate. 4. Indeterminate right adrenal nodule can be correlated with prior imaging is available otherwise close attention on follow-up is recommended. Electronically signed by: Miller Mcbride MD (05/12/2020 4:20 PM) [facility]
[2020-05-13] VITALS (24 sets, daily range): BP systolic 118–183; BP diastolic 75–115
[2020-05-13] MEDS: INSULIN LISPRO 300 UNITS/3 ML VIAL. SQ SCH ×4 (00:28→17:10)
[2020-05-13] MEDS: PROPOFOL 100 ML IV PRN ×5 (03:46→23:17)
[2020-05-13] MEDS: methylPREDNISolone SOD SUCC PF 125 MG/2 ML VIAL. IV SCH ×3 (05:46→21:47)
[2020-05-13 06:10] LABS: HEMATOCRIT 41.7 % (39.0-53.0); HEMOGLOBIN 13.2 g/dL (13.0-17.5); RED BLOOD COUNT 5.61 x10^6/uL (4.30-5.70); RED CELL DISTRIBUTION WIDTH 17.5 % (11.5-14.5); WHITE BLOOD COUNT 7.5 x10^3/uL (4.0-11.0)
[2020-05-13 06:26] LABS: CALCIUM 7.4 mg/dL (8.5-10.1); CREATININE 2.1 mg/dL (0.7-1.3); GFR 39.7; POTASSIUM 4.3 mmol/L (3.5-5.1)
[2020-05-13 08:16] LABS: BASE EXCESS ABG 1 mmol/L (-3-3); HCO3 ABG 24 mmol/L (21-28); PCO2 ABG 36 mmHg (35-46); PO2 ABG 76 mmHg (75-108); SAT O2 ABG 95 % (92-99)
[2020-05-13 08:18] LABS: FIO2 ABG 60
[2020-05-13] MEDS: ASPIRIN CHEWABLE 81 MG TABLET. PO SCH (08:30)
[2020-05-13] MEDS: CHLORHEXIDINE 0.12% 15 ML MOUTHWASH. MM SCH ×2 (08:30→21:00)
[2020-05-13] MEDS: PANTOPRAZOLE IV PUSH 40 MG VIAL. IVP SCH (08:30)
[2020-05-13] MEDS: cefTRIAXone IV Push 1 GM VIAL. IVP SCH (08:30)
[2020-05-13] MEDS: MIDAZOLAM 100mg/100ml NS BAG 100 ML IV PRN (10:24)
--- NOTE | 2020-05-13 11:27 | PDOC ---
PULMONARY PROGRESS NOTES Subjective Patient remains on assist control ventilation FiO2 down to 65% Vitals Vital Signs Date Time Temp Pulse Resp B/P (MAP) Pulse Ox O2 Delivery O2 Flow Rate FiO2 05/13/20 10:18 88 176/111 05/13/20 10:00 22 97 Ventilator 05/13/20 08:00 98.5 98.5 05/13/20 07:54 15.0 Comments intubated/sedated Lungs: Other (decrease bs) Cardiovascular: S1 Abdomen: Soft, Other (obese) Extremities: Other (BLE +1) Skin: Warm, Dry Labs Laboratory Tests Test 05/12/20 03:10 05/12/20 07:45 05/12/20 09:47 05/12/20 15:05 White Blood Count 11.9 x10^3/uL (4.0-11.0) Red Blood Count 5.99 x10^6/uL (4.30-5.70) Hemoglobin 13.9 g/dL (13.0-17.5) Hematocrit 44.9 % (39.0-53.0) Mean Corpuscular Volume 75 fL (79-100) Mean Corpuscular Hemoglobin 23 pg (25-35) Mean Corpuscular Hemoglobin Concent 31 g/dL (31-37) Red Cell Distribution Width 17.6 % (11.5-14.5) Platelet Count 153 x10^3/uL (140-400) Heparin Anti-Xa Act, Unfractionated 0.22 IU/mL (0.30-0.70) 0.57 IU/mL (0.30-0.70) Sodium Level 141 mmol/L (136-145) Potassium Level 4.5 mmol/L (3.5-5.1) Chloride Level 106 mmol/L (98-107) Carbon Dioxide Level 25 mmol/L (21-32) Anion Gap 10 (6-14) Blood Urea Nitrogen 52 mg/dL (8-26) Creatinine 2.7 mg/dL (0.7-1.3) Estimated GFR (Cockcroft-Gault) 29.7 BUN/Creatinine Ratio 19 (6-20) Glucose Level 194 mg/dL (70-99) Calcium Level 7.8 mg/dL (8.5-10.1) Total Bilirubin 0.5 mg/dL (0.2-1.0) Aspartate Amino Transf (AST/SGOT) 15 U/L (15-37) Alanine Aminotransferase (ALT/SGPT) 34 U/L (16-63) Alkaline Phosphatase 31 U/L (46-116) Total Protein 5.0 g/dL (6.4-8.2) Albumin 2.4 g/dL (3.4-5.0) Albumin/Globulin Ratio 0.9 (1.0-1.7) O2 Saturation 93 % (92-99) Arterial Blood pH 7.40 (7.35-7.45) Arterial Blood pCO2 at Patient Temp 39 mmHg (35-46) Arterial Blood pO2 at Patient Temp 70 mmHg (75-108) Arterial Blood HCO3 23 mmol/L (21-28) Arterial Blood Base Excess -1 mmol/L (-3-3) FiO2 70 Glucose (Fingerstick) 237 mg/dL (70-99) Test 05/12/20 16:05 05/12/20 17:43 05/12/20 23:55 05/13/20 05:42 Heparin Anti-Xa Act, Unfractionated 0.46 IU/mL (0.30-0.70) Glucose (Fingerstick) 181 mg/dL (70-99) 195 mg/dL (70-99) 226 mg/dL (70-99) Test 05/13/20 05:45 05/13/20 08:10 White Blood Count 7.5 x10^3/uL (4.0-11.0) Red Blood Count 5.61 x10^6/uL (4.30-5.70) Hemoglobin 13.2 g/dL (13.0-17.5) Hematocrit 41.7 % (39.0-53.0) Mean Corpuscular Volume 74 fL (79-100) Mean Corpuscular Hemoglobin 23 pg (25-35) Mean Corpuscular Hemoglobin Concent 32 g/dL (31-37) Red Cell Distribution Width 17.5 % (11.5-14.5) Platelet Count 146 x10^3/uL (140-400) Sodium Level 139 mmol/L (136-145) Potassium Level 4.3 mmol/L (3.5-5.1) Chloride Level 103 mmol/L (98-107) Carbon Dioxide Level 29 mmol/L (21-32) Anion Gap 7 (6-14) Blood Urea Nitrogen 41 mg/dL (8-26) Creatinine 2.1 mg/dL (0.7-1.3) Estimated GFR (Cockcroft-Gault) 39.7 Glucose Level 238 mg/dL (70-99) Calcium Level 7.4 mg/dL (8.5-10.1) O2 Saturation 95 % (92-99) Arterial Blood pH 7.45 (7.35-7.45) Arterial Blood pCO2 at Patient Temp 36 mmHg (35-46) Arterial Blood pO2 at Patient Temp 76 mmHg (75-108) Arterial Blood HCO3 24 mmol/L (21-28) Arterial Blood Base Excess 1 mmol/L (-3-3) FiO2 60 Laboratory Tests Test 05/12/20 15:05 05/12/20 16:05 05/12/20 17:43 05/12/20 23:55 Glucose (Fingerstick) 237 mg/dL (70-99) 181 mg/dL (70-99) 195 mg/dL (70-99) Heparin Anti-Xa Act, Unfractionated 0.46 IU/mL (0.30-0.70) Test 05/13/20 05:42 05/13/20 05:45 05/13/20 08:10 Glucose (Fingerstick) 226 mg/dL (70-99) White Blood Count 7.5 x10^3/uL (4.0-11.0) Red Blood Count 5.61 x10^6/uL (4.30-5.70) Hemoglobin 13.2 g/dL (13.0-17.5) Hematocrit 41.7 % (39.0-53.0) Mean Corpuscular Volume 74 fL (79-100) Mean Corpuscular Hemoglobin 23 pg (25-35) Mean Corpuscular Hemoglobin Concent 32 g/dL (31-37) Red Cell Distribution Width 17.5 % (11.5-14.5) Platelet Count 146 x10^3/uL (140-400) Sodium Level 139 mmol/L (136-145) Potassium Level 4.3 mmol/L (3.5-5.1) Chloride Level 103 mmol/L (98-107) Carbon Dioxide Level 29 mmol/L (21-32) Anion Gap 7 (6-14) Blood Urea Nitrogen 41 mg/dL (8-26) Creatinine 2.1 mg/dL (0.7-1.3) Estimated GFR (Cockcroft-Gault) 39.7 Glucose Level 238 mg/dL (70-99) Calcium Level 7.4 mg/dL (8.5-10.1) O2 Saturation 95 % (92-99) Arterial Blood pH 7.45 (7.35-7.45) Arterial Blood pCO2 at Patient Temp 36 mmHg (35-46) Arterial Blood pO2 at Patient Temp 76 mmHg (75-108) Arterial Blood HCO3 24 mmol/L (21-28) Arterial Blood Base Excess 1 mmol/L (-3-3) FiO2 60 Medications Active Scripts Medications Dose Route/Sig Max Daily Dose Days Date Category [amlodipine benazep] Unknown Dose PO 05/08/20 Reported Proventil Hfa (Albuterol Sulfate) 6.7 Gm Hfa.aer.ad 1 Puff INH PRN Q6HRS PRN 05/08/20 Reported Advair 100-50 Diskus (Fluticasone/Salmeterol) 1 Each Disk.w.dev 1 Puff IH BID 05/08/20 Reported Comments IMPRESSION:New right internal jugular central venous catheter with tip at the superior cavoatrial junction. No pneumothorax. Otherwise unchanged. CTA chest IMPRESSION: 1. No evidence for acute pulmonary embolus the level of the subsegmental branches. More peripheral vessels are not well assessed. 2. Are seen moderate bilateral pleural effusions are seen. 3. Lower atelectasis of the lower lobes and atelectasis of the middle lobe without obvious obstructing mass, etiology is uncertain. Of note there may be small hilar lymph nodes bilaterally that are secured by the pleural effusions and hilar infiltration. Consider further evaluation with bronchoscopy or short interval follow-up CT following resolution of the acute process to further delineate. 4. Indeterminate right adrenal nodule can be correlated with prior imaging is available otherwise close attention on follow-up is recommended. Impression . 1. Acute hypoxic and hypercapnic respiratory failure secondary to multifactorial etiologies including suspected chronic obstructive pulmonary disease with acute exacerbation, non-ST myocardial infarction, and cocaine overdose. 2. Underlying chronic obstructive pulmonary disease, clinically suspected. 3. Abnormal chest x-ray with prominent interstitial markings, probably related to mild interstitial edema.improved 4. Abnormal troponin consistent with non-ST myocardial infarction./? RV infarction 5. Acute kidney injury. 6. Abnormal LFTs. Could be related to hypoperfusion. 7. Urine drug screen positive for cocaine. 8. CT chest neg for PE 9. Arslan atelectasis CT chest IMPRESSION: 1. No evidence for acute pulmonary embolus the level of the subsegmental branches. More peripheral vessels are not well assessed. 2. Are seen moderate bilateral pleural effusions are seen. 3. Lower atelectasis of the lower lobes and atelectasis of the middle lobe without obvious obstructing mass, etiology is uncertain. Of note there may be small hilar lymph nodes bilaterally that are secured by the pleural effusions and hilar infiltration. Consider further evaluation with bronchoscopy or short interval follow-up CT following resolution of the acute process to further delineate. 4. Indeterminate right adrenal nodule can be correlated with prior imaging is available otherwise close attention on follow-up is recommended. Plan . Continue current vent support Fi02 60% and PEEP 7 CTA reviewed-- will repeat CT in 2 months Follow nephrology recs-- cont. HD , neg fluid balance cont. IV steroids Cont. ABX Follow cardiology input Discussed with RT and RN Total cumulative critical care time of 30 minutes, reviewing data, labs, chest x-ray, and formulating a plan D/W Sister at bedside TOÑA WAGONER MD May 13, 2020 11:27
[2020-05-13] MEDS ORDERED: IV NORMAL SALINE 1000ML BAG 1,000 ML IV PRN ×2 (12:00)
[2020-05-13] MEDS ORDERED: DIALYSIS PATIENT. MC PRN ×2 (12:00)
--- NOTE | 2020-05-13 13:45 | PDOC ---
PROGRESS NOTES Chief Complaint Chief Complaint Assessment/Plan Impression: Respiratory failure requiring vent support 75% fio2 COPD ACUTE HYPOXIC / HYPERCAPNIC RESP FAILURE Slight improvement with persistent basilar density bilaterally more on the left. CXR 05/10 Screen COVID-19 virus infection neg 05/09 NSTEMI (non-ST elevated myocardial infarction) COCAINE ABUSE, present on admit Morbid obesity EVY EVY Echogenic appearing bilateral kidneys probably medical renal disease., worse No evidence of hydronephrosis. Echo to assess LV systolic function pending negative COVID testing Will review records from [facility] in [place], Consider further ischemic evaluation pending course of hospitalization Plan: ICU BED follow pulmonary recommendations for vent management. 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 VENT SUPPORT heparin drip GI PROPHYLAXIS TAPERING IV STEROIDS covid 19 screen negative. Nephrology following cpk Echo to assess LV systolic function pending negative COVID testing review records from [facility] in [place], [place]. when available further ischemic evaluation pending course of hospitalization picc 05/10 BB moving forward with cocaine cessation counseling VTE Prophylaxis Ordered VTE Prophylaxis Devices: Yes VTE Pharmacological Prophylaxi: Yes History of Present Illness History of Present Illness guarded prognosis 05/11 EVY WORSE, planning dialysis cr 3.4 wt 121 kg , family request transfer to [facility] notified, pending 05/12 patient will start dialysis, discussed with clinical documentation consultant. No acute events reported overnight, critically stable. 05/13 no acute events reported overnight, case discussed with nursing staff patient in no acute distress no complaints during my visit, he had dialysis yesterday, sister at bedside reassurance provided. Vitals Vitals Vital Signs Date Time Temp Pulse Resp B/P (MAP) Pulse Ox O2 Delivery O2 Flow Rate FiO2 05/13/20 13:00 54 22 145/90 (108) 99 Ventilator 05/13/20 12:00 98.6 98.6 05/13/20 07:54 15.0 Physical Exam Physical Exam Heart: RRR Abdomen: obese Neurology: SEDATED General: No acute distress, Other (INTUBATED AND SEDATED) Heart: Regular rate, Normal S1, Normal S2 Lungs: Other (decrease bs) Abdomen: Normal bowel sounds, Soft, No tenderness Extremities: No clubbing, No cyanosis Skin: No breakdown, No significant lesion Labs LABS Laboratory Tests Test 05/12/20 15:05 05/12/20 16:05 05/12/20 17:43 05/12/20 23:55 Glucose (Fingerstick) 237 mg/dL (70-99) 181 mg/dL (70-99) 195 mg/dL (70-99) Heparin Anti-Xa Act, Unfractionated 0.46 IU/mL (0.30-0.70) Test 05/13/20 05:42 05/13/20 05:45 05/13/20 08:10 05/13/20 12:44 Glucose (Fingerstick) 226 mg/dL (70-99) 216 mg/dL (70-99) White Blood Count 7.5 x10^3/uL (4.0-11.0) Red Blood Count 5.61 x10^6/uL (4.30-5.70) Hemoglobin 13.2 g/dL (13.0-17.5) Hematocrit 41.7 % (39.0-53.0) Mean Corpuscular Volume 74 fL (79-100) Mean Corpuscular Hemoglobin 23 pg (25-35) Mean Corpuscular Hemoglobin Concent 32 g/dL (31-37) Red Cell Distribution Width 17.5 % (11.5-14.5) Platelet Count 146 x10^3/uL (140-400) Sodium Level 139 mmol/L (136-145) Potassium Level 4.3 mmol/L (3.5-5.1) Chloride Level 103 mmol/L (98-107) Carbon Dioxide Level 29 mmol/L (21-32) Anion Gap 7 (6-14) Blood Urea Nitrogen 41 mg/dL (8-26) Creatinine 2.1 mg/dL (0.7-1.3) Estimated GFR (Cockcroft-Gault) 39.7 Glucose Level 238 mg/dL (70-99) Calcium Level 7.4 mg/dL (8.5-10.1) O2 Saturation 95 % (92-99) Arterial Blood pH 7.45 (7.35-7.45) Arterial Blood pCO2 at Patient Temp 36 mmHg (35-46) Arterial Blood pO2 at Patient Temp 76 mmHg (75-108) Arterial Blood HCO3 24 mmol/L (21-28) Arterial Blood Base Excess 1 mmol/L (-3-3) FiO2 60 Assessment and Plan Assessmemt and Plan Problems Medical Problems: (1) Cocaine abuse Status: Acute (2) NSTEMI (non-ST elevated myocardial infarction) Status: Acute (3) Respiratory failure Status: Acute (4) Suspected COVID-19 virus infection Status: Acute Comment Review of Relevant I have reviewed the following items jeffrey (where applicable) has been applied. Labs Laboratory Tests Test 05/12/20 03:10 05/12/20 07:45 05/12/20 09:47 05/12/20 15:05 White Blood Count 11.9 x10^3/uL (4.0-11.0) Red Blood Count 5.99 x10^6/uL (4.30-5.70) Hemoglobin 13.9 g/dL (13.0-17.5) Hematocrit 44.9 % (39.0-53.0) Mean Corpuscular Volume 75 fL (79-100) Mean Corpuscular Hemoglobin 23 pg (25-35) Mean Corpuscular Hemoglobin Concent 31 g/dL (31-37) Red Cell Distribution Width 17.6 % (11.5-14.5) Platelet Count 153 x10^3/uL (140-400) Heparin Anti-Xa Act, Unfractionated 0.22 IU/mL (0.30-0.70) 0.57 IU/mL (0.30-0.70) Sodium Level 141 mmol/L (136-145) Potassium Level 4.5 mmol/L (3.5-5.1) Chloride Level 106 mmol/L (98-107) Carbon Dioxide Level 25 mmol/L (21-32) Anion Gap 10 (6-14) Blood Urea Nitrogen 52 mg/dL (8-26) Creatinine 2.7 mg/dL (0.7-1.3) Estimated GFR (Cockcroft-Gault) 29.7 BUN/Creatinine Ratio 19 (6-20) Glucose Level 194 mg/dL (70-99) Calcium Level 7.8 mg/dL (8.5-10.1) Total Bilirubin 0.5 mg/dL (0.2-1.0) Aspartate Amino Transf (AST/SGOT) 15 U/L (15-37) Alanine Aminotransferase (ALT/SGPT) 34 U/L (16-63) Alkaline Phosphatase 31 U/L (46-116) Total Protein 5.0 g/dL (6.4-8.2) Albumin 2.4 g/dL (3.4-5.0) Albumin/Globulin Ratio 0.9 (1.0-1.7) O2 Saturation 93 % (92-99) Arterial Blood pH 7.40 (7.35-7.45) Arterial Blood pCO2 at Patient Temp 39 mmHg (35-46) Arterial Blood pO2 at Patient Temp 70 mmHg (75-108) Arterial Blood HCO3 23 mmol/L (21-28) Arterial Blood Base Excess -1 mmol/L (-3-3) FiO2 70 Glucose (Fingerstick) 237 mg/dL (70-99) Test 05/12/20 16:05 05/12/20 17:43 05/12/20 23:55 05/13/20 05:42 Heparin Anti-Xa Act, Unfractionated 0.46 IU/mL (0.30-0.70) Glucose (Fingerstick) 181 mg/dL (70-99) 195 mg/dL (70-99) 226 mg/dL (70-99) Test 05/13/20 05:45 05/13/20 08:10 05/13/20 12:44 White Blood Count 7.5 x10^3/uL (4.0-11.0) Red Blood Count 5.61 x10^6/uL (4.30-5.70) Hemoglobin 13.2 g/dL (13.0-17.5) Hematocrit 41.7 % (39.0-53.0) Mean Corpuscular Volume 74 fL (79-100) Mean Corpuscular Hemoglobin 23 pg (25-35) Mean Corpuscular Hemoglobin Concent 32 g/dL (31-37) Red Cell Distribution Width 17.5 % (11.5-14.5) Platelet Count 146 x10^3/uL (140-400) Sodium Level 139 mmol/L (136-145) Potassium Level 4.3 mmol/L (3.5-5.1) Chloride Level 103 mmol/L (98-107) Carbon Dioxide Level 29 mmol/L (21-32) Anion Gap 7 (6-14) Blood Urea Nitrogen 41 mg/dL (8-26) Creatinine 2.1 mg/dL (0.7-1.3) Estimated GFR (Cockcroft-Gault) 39.7 Glucose Level 238 mg/dL (70-99) Calcium Level 7.4 mg/dL (8.5-10.1) O2 Saturation 95 % (92-99) Arterial Blood pH 7.45 (7.35-7.45) Arterial Blood pCO2 at Patient Temp 36 mmHg (35-46) Arterial Blood pO2 at Patient Temp 76 mmHg (75-108) Arterial Blood HCO3 24 mmol/L (21-28) Arterial Blood Base Excess 1 mmol/L (-3-3) FiO2 60 Glucose (Fingerstick) 216 mg/dL (70-99) Laboratory Tests Test 05/12/20 15:05 05/12/20 16:05 05/12/20 17:43 05/12/20 23:55 Glucose (Fingerstick) 237 mg/dL (70-99) 181 mg/dL (70-99) 195 mg/dL (70-99) Heparin Anti-Xa Act, Unfractionated 0.46 IU/mL (0.30-0.70) Test 05/13/20 05:42 05/13/20 05:45 05/13/20 08:10 05/13/20 12:44 Glucose (Fingerstick) 226 mg/dL (70-99) 216 mg/dL (70-99) White Blood Count 7.5 x10^3/uL (4.0-11.0) Red Blood Count 5.61 x10^6/uL (4.30-5.70) Hemoglobin 13.2 g/dL (13.0-17.5) Hematocrit 41.7 % (39.0-53.0) Mean Corpuscular Volume 74 fL (79-100) Mean Corpuscular Hemoglobin 23 pg (25-35) Mean Corpuscular Hemoglobin Concent 32 g/dL (31-37) Red Cell Distribution Width 17.5 % (11.5-14.5) Platelet Count 146 x10^3/uL (140-400) Sodium Level 139 mmol/L (136-145) Potassium Level 4.3 mmol/L (3.5-5.1) Chloride Level 103 mmol/L (98-107) Carbon Dioxide Level 29 mmol/L (21-32) Anion Gap 7 (6-14) Blood Urea Nitrogen 41 mg/dL (8-26) Creatinine 2.1 mg/dL (0.7-1.3) Estimated GFR (Cockcroft-Gault) 39.7 Glucose Level 238 mg/dL (70-99) Calcium Level 7.4 mg/dL (8.5-10.1) O2 Saturation 95 % (92-99) Arterial Blood pH 7.45 (7.35-7.45) Arterial Blood pCO2 at Patient Temp 36 mmHg (35-46) Arterial Blood pO2 at Patient Temp 76 mmHg (75-108) Arterial Blood HCO3 24 mmol/L (21-28) Arterial Blood Base Excess 1 mmol/L (-3-3) FiO2 60 Microbiology 05/08/20 Blood Culture - Preliminary, Resulted NO GROWTH AFTER 4 DAYS Medications Current Medications Propofol 50 ml @ As Directed STK-MED ONCE IV ; Start 05/08/20 at 07:33; Stop 05/08/20 at 07:33; Status DC Propofol 100 ml @ 0 mls/hr CONT PRN IV SEE PROTOCOL Last administered on 05/13/20at 10:47; Start 05/08/20 at 07:45 Fentanyl Citrate (Fentanyl 2ml Vial) 50 mcg PRN Q1HR PRN IV SEE COMMENTS Last administered on 05/08/20at 12:44; Start 05/08/20 at 07:45 Chlorhexidine Gluconate (Peridex) 15 ml BID MM Last administered on 05/13/20at 08:30; Start 05/08/20 at 09:00 Etomidate (Amidate) 20 mg 1X ONCE IV Last administered on 05/08/20at 07:30; Start 05/08/20 at 07:45; Stop 05/08/20 at 09:04; Status DC Succinylcholine Chloride (Anectine) 100 mg 1X ONCE IV Last administered on at 07:31; Start 05/08/20 at 07:45; Stop 05/08/20 at 09:04; Status DC Albuterol/ Ipratropium (Duoneb) 6 ml 1X ONCE NEB ; Start 05/08/20 at 07:45; Stop 05/08/20 at 09:04; Status DC Methylprednisolone Sodium Succinate (SOLU-Medrol 125MG VIAL) 125 mg 1X ONCE IV Last administered on 05/08/20at 08:31; Start 05/08/20 at 07:45; Stop 05/08/20 at 09:04; Status DC Albuterol Sulfate (Ventolin Neb Soln) 2.5 mg 1X ONCE NEB ; Start 05/08/20 at 07:45; Stop 05/08/20 at 08:56; Status DC Ceftriaxone Sodium (Rocephin) 1 gm 1X ONCE IVP Last administered on 05/08/20at 08:31; Start 05/08/20 at 07:45; Stop 05/08/20 at 09:04; Status DC Propofol (Diprivan) 40 mg 1X ONCE IV ; Start 05/08/20 at 08:00; Stop 05/08/20 at 09:04; Status DC Fentanyl Citrate 30 ml @ 0 mls/hr CONT PRN IV SEE PROTOCOL Last administered on 05/13/20at 07:54; Start 05/08/20 at 08:15 Midazolam HCl 100 ml @ 0 mls/hr CONT PRN IV SEE PROTOCOL Last administered on 05/13/20at 10:24; Start 05/08/20 at 08:15 Sodium Chloride 1,000 ml @ 1,000 mls/hr 1X ONCE IV Last administered on 05/08/20at 08:47; Start 05/08/20 at 08:30; Stop 05/08/20 at 09:29; Status DC Midazolam HCl (Versed) 5 mg 1X ONCE IV Last administered on 05/08/20at 08:33; Start 05/08/20 at 08:30; Stop 05/08/20 at 09:04; Status DC Ondansetron HCl (Zofran) 4 mg PRN Q8HRS PRN IV NAUSEA/VOMITING; Start 05/08/20 at 08:45; Stop 05/09/20 at 08:44; Status DC Aspirin (Aspirin Rectal Supp) 300 mg 1X ONCE SC Last administered on 05/08/20at 10:00; Start 05/08/20 at 08:45; Stop 05/08/20 at 09:04; Status DC Sodium Chloride (Normal Saline Flush) 3 ml QSHIFT PRN IV AFTER MEDS AND BLOOD DRAWS; Start 05/08/20 at 11:30; Stop 05/08/20 at 18:55; Status DC Sodium Chloride 1,000 ml @ 60 mls/hr [id number] IV Last administered on 05/08/20at 12:53; Start 05/08/20 at 11:24; Stop 05/08/20 at 18:55; Status DC Ondansetron HCl (Zofran) 4 mg PRN Q4HRS PRN IV NAUSEA/VOMITING; Start 05/08/20 at 11:30; Stop 05/08/20 at 18:55; Status DC Acetaminophen (Tylenol Supp) 650 mg PRN Q4HRS PRN SC TEMP OVER 100.4F OR MILD PAIN; Start 05/08/20 at 11:30; Stop 05/08/20 at 18:47; Status DC Sodium Monofluorophosphate (Fleet Adult) 133 ml PRN DAILY PRN SC CONSTIPATION; Start 05/08/20 at 11:30; Stop 05/08/20 at 18:55; Status DC Albuterol/ Ipratropium (Duoneb) 3 ml Q4H NEB ; Start 05/08/20 at 11:30; Stop 05/08/20 at 15:37; Status DC Enoxaparin Sodium (Lovenox 40mg Syringe) 40 mg DAILY SQ ; Start 05/09/20 at 09:00; Stop 05/08/20 at 18:54; Status DC Pantoprazole Sodium (PROTONIX VIAL for IV PUSH) 40 mg DAILYAC IVP Last administered on 05/13/20at 08:30; Start 05/08/20 at 11:30 Etomidate (Amidate) 40 mg 1X ONCE IV Last administered on 05/08/20at 07:57; Start 05/08/20 at 07:55; Stop 05/08/20 at 12:05; Status DC Methylprednisolone Sodium Succinate (SOLU-Medrol 125MG VIAL) 60 mg Q8HRS IV Last administered on 05/13/20at 05:46; Start 05/08/20 at 14:00 Midazolam HCl (Versed) 5 mg PRN Q15MIN PRN IV SEDATION Last administered on 05/08/20at 12:32; Start 05/08/20 at 08:00 Enoxaparin Sodium (Lovenox Per Pharmacy Prophylaxis Dosing) 1 each PRN DAILY SC N MC SEE COMMENTS; Start 05/08/20 at 16:00; Stop 05/10/20 at 09:14; Status DC Sodium Chloride (Normal Saline Flush) 3 ml QSHIFT PRN IV AFTER MEDS AND BLOOD DRAWS; Start 05/08/20 at 16:15 Sodium Chloride 1,000 ml @ 125 mls/hr Q8H IV Last administered on 05/12/20at 20:54; Start 05/08/20 at 16:01 Ondansetron HCl (Zofran) 4 mg PRN Q4HRS PRN IV NAUSEA/VOMITING; Start 05/08/20 at 16:15 Acetaminophen (Tylenol Supp) 650 mg PRN Q4HRS PRN SC TEMP OVER 100.4F OR MILD PAIN; Start 05/08/20 at 16:15 Sodium Monofluorophosphate (Fleet Adult) 133 ml PRN DAILY PRN SC CONSTIPATION; Start 05/08/20 at 16:15 Albuterol/ Ipratropium (Duoneb) 3 ml Q4H NEB ; Start 05/08/20 at 16:15; Stop 05/08/20 at 18:45; Status DC Enoxaparin Sodium (Lovenox 40mg Syringe) 40 mg Q24H SQ Last administered on 05/09/20at 17:04; Start 05/08/20 at 17:00; Stop 05/10/20 at 09:14; Status DC Ceftriaxone Sodium (Rocephin) 1 gm Q24H IVP Last administered on 05/13/20at 08:30; Start 05/09/20 at 08:00 Aspirin (Aspirin Chewable) 81 mg DAILYWBKFT PO ; Start 05/08/20 at 17:30; Stop 05/08/20 at 17:27; Status DC Aspirin (Aspirin Chewable) 81 mg DAILYWBKFT PO Last administered on 05/13/20at 08:30; Start 05/09/20 at 08:00 Albuterol Sulfate (Ventolin Neb Soln) 2.5 mg PRN Q4HRS PRN NEB SHORTNESS OF BREATH; Start 05/08/20 at 19:00 Amlodipine Besylate (Norvasc) 10 mg 1X ONCE PO Last administered on 05/09/20at 14:31; Start 05/09/20 at 14:30; Stop 05/09/20 at 14:31; Status DC Clonidine HCl (Catapres) 0.1 mg PRN Q2HR PRN PO HYPERTENSION Last administered on 05/13/20at 10:18; Start 05/09/20 at 14:30; Stop 05/13/20 at 11:34; Status DC Enoxaparin Sodium (Lovenox Per Pharmacy Treatment Dosing) 1 each PRN DAILY PRN MC SEE COMMENTS; Start 05/10/20 at 09:30; Status Cancel Enoxaparin Sodium (Lovenox 120mg Syringe) 120 mg DAILY SQ Last administered on 05/10/20at 10:19; Start 05/10/20 at 10:00; Stop 05/10/20 at 10:48; Status DC Heparin Sodium/ Dextrose 250 ml @ 10 mls/hr CONT PRN IV PER PROTOCOL Last administered on 05/11/20at 20:59; Start 05/10/20 at 11:00; Stop 05/13/20 at 13:35; Status DC Heparin Sodium (Porcine) (Heparin Sodium) 2,950 unit PRN Q6HRS PRN IV FOR UFH LEVEL LESS THAN 0.2; Start 05/10/20 at 11:00; Stop 05/13/20 at 13:36; Status DC Polyethylene Glycol (miraLAX PACKET) 17 gm PRN DAILY PRN PO CONSTIPATION Last administered on 05/11/20at 11:20; Start 05/10/20 at 16:00 Lidocaine HCl (Buffered Lidocaine 1%) 3 ml STK-MED ONCE .ROUTE ; Start 05/11/20 at 13:30; Stop 05/11/20 at 13:30; Status DC Lidocaine HCl (Buffered Lidocaine 1%) 6 ml 1X ONCE INJ Last administered on 05/11/20at 13:50; Start 05/11/20 at 14:00; Stop 05/11/20 at 14:01; Status DC Sodium Chloride 1,000 ml @ 1,000 mls/hr Q1H PRN IV hypotension; Start 05/11/20 at 15:19; Stop 05/11/20 at 21:18; Status DC Info (PHARMACY MONITORING -- do not chart) 1 each PRN DAILY PRN MC SEE COMMENTS; Start 05/11/20 at 15:30; Status Cancel Info (PHARMACY MONITORING -- do not chart) 1 each PRN DAILY PRN MC SEE COMMENTS; Start 05/11/20 at 15:30; Status UNV Sodium Chloride 1,000 ml @ 1,000 mls/hr Q1H PRN IV hypotension; Start 05/12/20 at 08:28; Stop 05/12/20 at 14:27; Status DC Albumin Human 200 ml @ 200 mls/hr 1X PRN PRN IV Hypotension; Start 05/12/20 at 08:30; Stop 05/12/20 at 14:29; Status DC Sodium Chloride (Normal Saline Flush) 10 ml 1X PRN PRN IV AP catheter pack; Start 05/12/20 at 08:30; Stop 05/13/20 at 08:29; Status DC Sodium Chloride (Normal Saline Flush) 10 ml 1X PRN PRN IV MANAGER MOTOR catheter pack; Start 05/12/20 at 08:30; Stop 05/13/20 at 08:29; Status DC Sodium Chloride 1,000 ml @ 400 mls/hr Q2H30M PRN IV PATENCY; Start 05/12/20 at 08:28; Stop 05/12/20 at 20:27; Status DC Info (PHARMACY MONITORING -- do not chart) 1 each PRN DAILY PRN MC SEE COMMENTS; Start 05/12/20 at 08:30; Status UNV Info (PHARMACY MONITORING -- do not chart) 1 each PRN DAILY PRN MC SEE COMMENTS; Start 05/12/20 at 08:30 Info (Anti-Coagulation Monitoring By Pharmacy) 1 each PRN DAILY PRN MC SEE COMMENTS; Start 05/12/20 at 09:15; Stop 05/13/20 at 13:35; Status DC Iohexol (Omnipaque 350 Mg/ml) 100 ml 1X ONCE IV Last administered on 05/12/20at 15:45; Start 05/12/20 at 11:45; Stop 05/12/20 at 11:46; Status DC Info (CONTRAST GIVEN -- Rx MONITORING) 1 each PRN DAILY PRN MC SEE COMMENTS; Start 05/12/20 at 11:45; Stop 05/14/20 at 11:44 Insulin Human Lispro (HumaLOG) 0-5 UNITS TIDWMEALS SQ Last administered on 05/12/20at 18:16; Start 05/12/20 at 13:00; Stop 05/12/20 at 19:02; Status DC Dextrose (Dextrose 50%-Water Syringe) 12.5 gm PRN Q15MIN PRN IV SEE COMMENTS; Start 05/12/20 at 12:45 Dextrose (Iv Dextrose 5%) 250 ml PRN Q15MIN PRN IV SEE COMMENTS; Start 05/12/20 at 12:45 Insulin Human Lispro (HumaLOG) 0-5 UNITS Q6HRS SQ Last administered on 05/13/20at 12:47; Start 05/13/20 at 00:00 Labetalol HCl (Normodyne Iv Push) 10 mg PRN Q4HRS PRN IVP HYPERTENSION; Start 05/13/20 at 12:00 Sodium Chloride 1,000 ml @ 1,000 mls/hr Q1H PRN IV hypotension; Start 05/13/20 at 12:00; Stop 05/13/20 at 19:00 Sodium Chloride 1,000 ml @ 400 mls/hr Q2H30M PRN IV PATENCY; Start 05/13/20 at 12:00; Stop 05/13/20 at 19:00 Info (PHARMACY MONITORING -- do not chart) 1 each PRN DAILY PRN MC SEE COMMENTS; Start 05/13/20 at 12:00; Status UNV Info (PHARMACY MONITORING -- do not chart) 1 each PRN DAILY PRN MC SEE COMMENTS; Start 05/13/20 at 12:00; Status UNV Active Scripts Active Reported [amlodipine benazep] Unknown Dose PO Proventil Hfa (Albuterol Sulfate) 6.7 Gm Hfa.aer.ad 1 Puff INH PRN Q6HRS PRN Advair 100-50 Diskus (Fluticasone/Salmeterol) 1 Each Disk.w.dev 1 Puff IH BID Vitals/I & O Vital Sign - Last 24 Hours 05/12/20 05/12/20 05/12/20 05/12/20 14:00 15:00 15:56 16:00 Temp 98.9 98.9 Pulse 70 74 88 Resp 22 22 B/P (MAP) 119/83 (95) 127/81 (96) 122/78 (93) Pulse Ox 99 99 97 97 O2 Delivery Ventilator Ventilator Ventilator Ventilator 05/12/20 05/12/20 05/12/20 05/12/20 16:00 17:00 18:00 19:00 Temp 98.1 98.1 Pulse 68 63 65 Resp 22 22 22 B/P (MAP) 134/88 (103) 137/84 (101) 149/98 (115) Pulse Ox 99 96 97 O2 Delivery Mechanical Ventilator Ventilator Ventilator Ventilator 05/12/20 05/12/20 05/12/20 05/12/20 20:00 20:00 20:00 21:00 Pulse 81 76 Resp 22 22 B/P (MAP) 160/92 (114) 133/76 (95) Pulse Ox 97 96 96 O2 Delivery Ventilator Ventilator Mechanical Ventilator Ventilator 05/12/20 05/12/20 05/13/20 05/13/20 22:00 23:00 00:00 00:00 Temp 98.1 98.1 Pulse 80 70 58 Resp 22 22 22 B/P (MAP) 157/87 (110) 157/90 (112) 144/87 (106) Pulse Ox 97 96 96 O2 Delivery Ventilator Ventilator Mechanical Ventilator Ventilator 05/13/20 05/13/20 05/13/20 05/13/20 00:03 01:00 02:00 03:00 Pulse 57 59 70 Resp 22 22 B/P (MAP) 132/82 (99) 135/83 (100) 156/98 (117) Pulse Ox 96 97 98 98 O2 Delivery Ventilator Ventilator Ventilator Ventilator 05/13/20 05/13/20 05/13/20 05/13/20 04:00 04:00 04:57 05:00 Temp 98.4 98.4 Pulse 65 60 Resp 22 22 B/P (MAP) 156/98 (117) 155/93 (113) Pulse Ox 98 96 97 O2 Delivery Ventilator Mechanical Ventilator Ventilator Ventilator 05/13/20 05/13/20 05/13/20 05/13/20 06:00 07:00 07:54 07:56 Pulse 58 62 Resp 22 22 B/P (MAP) 140/87 (104) 146/84 (104) Pulse Ox 98 97 98 98 O2 Delivery Ventilator Ventilator Ventilator Ventilator O2 Flow Rate 15.0 05/13/20 05/13/20 05/13/20 05/13/20 08:00 08:00 09:00 10:00 Temp 98.5 98.5 Pulse 62 74 82 Resp 22 22 22 B/P (MAP) 163/96 (118) 183/115 (137) 176/111 (132) Pulse Ox 98 97 97 O2 Delivery Ventilator Mechanical Ventilator Ventilator Ventilator 05/13/20 05/13/20 05/13/20 05/13/20 10:18 11:00 11:20 12:00 Pulse 88 67 Resp 22 B/P (MAP) 176/111 177/105 (129) Pulse Ox 97 97 O2 Delivery Ventilator Ventilator Mechanical Ventilator 05/13/20 05/13/20 12:00 13:00 Temp 98.6 98.6 Pulse 60 54 Resp 22 22 B/P (MAP) 154/91 (112) 145/90 (108) Pulse Ox 98 99 O2 Delivery Ventilator Ventilator Intake and Output 05/12/20 05/12/20 05/13/20 15:00 23:00 07:00 Intake Total 340 ml 2113.6 ml 2072.3 ml Output Total 430 ml 400 ml 810 ml Balance -90 ml 1713.6 ml 1262.3 ml PRASANNA FERNANDES MD May 13, 2020 13:45
--- NOTE | 2020-05-13 14:33 | PDOC ---
Renal-Progress Notes Subjective Notes Notes INTUBATED History of Present Illness Hx of present illness STABLE Vitals Vitals Vital Signs Date Time Temp Pulse Resp B/P (MAP) Pulse Ox O2 Delivery O2 Flow Rate FiO2 05/13/20 14:00 62 22 133/81 (98) 99 Ventilator 05/13/20 13:42 15.0 05/13/20 12:00 98.6 98.6 Weight Weight [ ] I.O. Intake and Output Intake and Output 05/13/20 07:00 Intake Total 4525.9 ml Output Total 1640 ml Balance 2885.9 ml IV Total 2024.9 ml Tube Feeding 1821 ml Other 680 ml Output Urine Total 1640 ml Gastric Drainage Total 0 ml Labs Labs Laboratory Tests Test 05/12/20 15:05 05/12/20 16:05 05/12/20 17:43 05/12/20 23:55 Glucose (Fingerstick) 237 mg/dL (70-99) 181 mg/dL (70-99) 195 mg/dL (70-99) Heparin Anti-Xa Act, Unfractionated 0.46 IU/mL (0.30-0.70) Test 05/13/20 05:42 05/13/20 05:45 05/13/20 08:10 05/13/20 12:44 Glucose (Fingerstick) 226 mg/dL (70-99) 216 mg/dL (70-99) White Blood Count 7.5 x10^3/uL (4.0-11.0) Red Blood Count 5.61 x10^6/uL (4.30-5.70) Hemoglobin 13.2 g/dL (13.0-17.5) Hematocrit 41.7 % (39.0-53.0) Mean Corpuscular Volume 74 fL (79-100) Mean Corpuscular Hemoglobin 23 pg (25-35) Mean Corpuscular Hemoglobin Concent 32 g/dL (31-37) Red Cell Distribution Width 17.5 % (11.5-14.5) Platelet Count 146 x10^3/uL (140-400) Sodium Level 139 mmol/L (136-145) Potassium Level 4.3 mmol/L (3.5-5.1) Chloride Level 103 mmol/L (98-107) Carbon Dioxide Level 29 mmol/L (21-32) Anion Gap 7 (6-14) Blood Urea Nitrogen 41 mg/dL (8-26) Creatinine 2.1 mg/dL (0.7-1.3) Estimated GFR (Cockcroft-Gault) 39.7 Glucose Level 238 mg/dL (70-99) Calcium Level 7.4 mg/dL (8.5-10.1) O2 Saturation 95 % (92-99) Arterial Blood pH 7.45 (7.35-7.45) Arterial Blood pCO2 at Patient Temp 36 mmHg (35-46) Arterial Blood pO2 at Patient Temp 76 mmHg (75-108) Arterial Blood HCO3 24 mmol/L (21-28) Arterial Blood Base Excess 1 mmol/L (-3-3) FiO2 60 Micro Micro Microbiology 05/08/20 Blood Culture - Preliminary, Resulted NO GROWTH AFTER 4 DAYS Review of Systems Constitutional: yes: other (ON THE VENT SEDATED) Physical Exam General Appearance: no apparent distress Skin: warm Respiratory: ventilator (Mode:A/C), decreased breath sounds Heart: S1S2 Abdomen: soft, bowel sounds present Genitourinary: bladder flat Extremities: pulses present Neurology: other (sedated) Assessment Assessment IMP EVY - ATN UO IMPROVING HYPERKALEMIA-RESOLVED POSSIBLE RHABDOMYOLYSIS-CK NL NOW ACUTE ON CHRONIC HYPERCARBIC HYPOXIC RESP FAILURE-FIO2 OF 60% SUBSTANCE ABUSE-COCAINE LEUCOCYTOSIS-PROB REACTIVE NSTEMI HYPERGLYCEMIA ? ADRENAL MASS HTN PLAN COVID 19 NEG VENT SUPPORT DECREASE SALINE HYDRATION WILL ATTEMPT TO DIURESE TOMORROW CTA NEG FOR PE NEPRO TF TO CONTINUE CARDIOLOGY AND PULM EVAL HD AGAIN TODAY UF MINIMAL D/W PULM AND CARDIOLOGY CLOVER REID MD May 13, 2020 14:33
[2020-05-13] MEDS: IV NORMAL SALINE 1000ML BAG 1,000 ML IV SCH ×2 (16:04→18:39)
[2020-05-13] MEDS: HEPARIN for SUB-Q USE 5,000 UNIT/ML VIAL. SQ SCH (21:01)
[2020-05-14] VITALS (25 sets, daily range): BP systolic 85–181; BP diastolic 43–107
[2020-05-14] MEDS: INSULIN LISPRO 300 UNITS/3 ML VIAL. SQ SCH ×4 (00:17→17:23)
[2020-05-14] MEDS: PROPOFOL 100 ML IV PRN ×6 (04:08→20:52)
[2020-05-14] MEDS: methylPREDNISolone SOD SUCC PF 125 MG/2 ML VIAL. IV SCH ×3 (05:52→22:05)
--- NOTE | 2020-05-14 05:53 | RAD ---
AP chest. HISTORY: Short of breath, intubated AP view was taken of the chest. NG tube extends into the abdomen. Endotracheal tube remains in good position. Dialysis catheter is unchanged. There are bilateral effusions. There is atelectasis or consolidation in both lower lobes. There has been little change from the recent prior study. IMPRESSION: 1. Persistent pleural effusions with basilar atelectasis or infiltrates. 2. Tubes and lines unchanged. Electronically signed by: Pio Melendrez MD (05/14/2020 5:50 AM) [id number]
[2020-05-14 06:29] LABS: CALCIUM 7.9 mg/dL (8.5-10.1); CREATININE 1.8 mg/dL (0.7-1.3); GFR 47.5; POTASSIUM 4.2 mmol/L (3.5-5.1)
[2020-05-14] MEDS: ASPIRIN CHEWABLE 81 MG TABLET. PO SCH (07:25)
[2020-05-14] MEDS: PANTOPRAZOLE IV PUSH 40 MG VIAL. IVP SCH (07:25)
[2020-05-14 08:11] LABS: BASE EXCESS ABG 0 mmol/L (-3-3); HCO3 ABG 23 mmol/L (21-28); PCO2 ABG 33 mmHg (35-46); PO2 ABG 73 mmHg (75-108); SAT O2 ABG 94 % (92-99)
[2020-05-14] MEDS: MIDAZOLAM 100mg/100ml NS BAG 100 ML IV PRN ×2 (08:19→23:34)
[2020-05-14] MEDS: cefTRIAXone IV Push 1 GM VIAL. IVP SCH (08:52)
[2020-05-14] MEDS: CHLORHEXIDINE 0.12% 15 ML MOUTHWASH. MM SCH ×2 (08:52→20:07)
[2020-05-14] MEDS: HEPARIN for SUB-Q USE 5,000 UNIT/ML VIAL. SQ SCH ×2 (08:53→21:11)
[2020-05-14] MEDS: LABETALOL 20 MG/4 ML DISP.SYRIN. IVP PRN (09:03)
[2020-05-14 09:42] LABS: FIO2 ABG 60
--- NOTE | 2020-05-14 09:59 | PDOC ---
PULMONARY PROGRESS NOTES Subjective Patient remains on assist control ventilation FiO2 down 60% and PEEP 7 no overnight concerns from nursing Vitals Vital Signs Date Time Temp Pulse Resp B/P (MAP) Pulse Ox O2 Delivery O2 Flow Rate FiO2 05/14/20 09:20 70 22 175/93 (120) 94 Ventilator 05/14/20 08:00 98.1 98.1 05/13/20 13:42 15.0 Comments intubated/sedated Lungs: Other (decrease bs) Cardiovascular: S1 Abdomen: Soft, Other (obese) Extremities: Other (BLE +1) Skin: Warm, Dry Labs Laboratory Tests Test 05/12/20 15:05 05/12/20 16:05 05/12/20 17:43 05/12/20 23:55 Glucose (Fingerstick) 237 mg/dL (70-99) 181 mg/dL (70-99) 195 mg/dL (70-99) Heparin Anti-Xa Act, Unfractionated 0.46 IU/mL (0.30-0.70) Test 05/13/20 05:42 05/13/20 05:45 05/13/20 08:10 05/13/20 12:44 Glucose (Fingerstick) 226 mg/dL (70-99) 216 mg/dL (70-99) White Blood Count 7.5 x10^3/uL (4.0-11.0) Red Blood Count 5.61 x10^6/uL (4.30-5.70) Hemoglobin 13.2 g/dL (13.0-17.5) Hematocrit 41.7 % (39.0-53.0) Mean Corpuscular Volume 74 fL (79-100) Mean Corpuscular Hemoglobin 23 pg (25-35) Mean Corpuscular Hemoglobin Concent 32 g/dL (31-37) Red Cell Distribution Width 17.5 % (11.5-14.5) Platelet Count 146 x10^3/uL (140-400) Sodium Level 139 mmol/L (136-145) Potassium Level 4.3 mmol/L (3.5-5.1) Chloride Level 103 mmol/L (98-107) Carbon Dioxide Level 29 mmol/L (21-32) Anion Gap 7 (6-14) Blood Urea Nitrogen 41 mg/dL (8-26) Creatinine 2.1 mg/dL (0.7-1.3) Estimated GFR (Cockcroft-Gault) 39.7 Glucose Level 238 mg/dL (70-99) Calcium Level 7.4 mg/dL (8.5-10.1) O2 Saturation 95 % (92-99) Arterial Blood pH 7.45 (7.35-7.45) Arterial Blood pCO2 at Patient Temp 36 mmHg (35-46) Arterial Blood pO2 at Patient Temp 76 mmHg (75-108) Arterial Blood HCO3 24 mmol/L (21-28) Arterial Blood Base Excess 1 mmol/L (-3-3) FiO2 60 Test 05/13/20 17:07 05/14/20 00:11 05/14/20 05:58 05/14/20 06:00 Glucose (Fingerstick) 177 mg/dL (70-99) 227 mg/dL (70-99) 227 mg/dL (70-99) Sodium Level 138 mmol/L (136-145) Potassium Level 4.2 mmol/L (3.5-5.1) Chloride Level 103 mmol/L (98-107) Carbon Dioxide Level 30 mmol/L (21-32) Anion Gap 5 (6-14) Blood Urea Nitrogen 36 mg/dL (8-26) Creatinine 1.8 mg/dL (0.7-1.3) Estimated GFR (Cockcroft-Gault) 47.5 Glucose Level 235 mg/dL (70-99) Calcium Level 7.9 mg/dL (8.5-10.1) Test 05/14/20 07:45 O2 Saturation 94 % (92-99) Arterial Blood pH 7.47 (7.35-7.45) Arterial Blood pCO2 at Patient Temp 33 mmHg (35-46) Arterial Blood pO2 at Patient Temp 73 mmHg (75-108) Arterial Blood HCO3 23 mmol/L (21-28) Arterial Blood Base Excess 0 mmol/L (-3-3) FiO2 60 Laboratory Tests Test 05/13/20 12:44 05/13/20 17:07 05/14/20 00:11 05/14/20 05:58 Glucose (Fingerstick) 216 mg/dL (70-99) 177 mg/dL (70-99) 227 mg/dL (70-99) 227 mg/dL (70-99) Test 05/14/20 06:00 05/14/20 07:45 Sodium Level 138 mmol/L (136-145) Potassium Level 4.2 mmol/L (3.5-5.1) Chloride Level 103 mmol/L (98-107) Carbon Dioxide Level 30 mmol/L (21-32) Anion Gap 5 (6-14) Blood Urea Nitrogen 36 mg/dL (8-26) Creatinine 1.8 mg/dL (0.7-1.3) Estimated GFR (Cockcroft-Gault) 47.5 Glucose Level 235 mg/dL (70-99) Calcium Level 7.9 mg/dL (8.5-10.1) O2 Saturation 94 % (92-99) Arterial Blood pH 7.47 (7.35-7.45) Arterial Blood pCO2 at Patient Temp 33 mmHg (35-46) Arterial Blood pO2 at Patient Temp 73 mmHg (75-108) Arterial Blood HCO3 23 mmol/L (21-28) Arterial Blood Base Excess 0 mmol/L (-3-3) FiO2 60 Medications Active Scripts Medications Dose Route/Sig Max Daily Dose Days Date Category [amlodipine benazep] Unknown Dose PO 05/08/20 Reported Proventil Hfa (Albuterol Sulfate) 6.7 Gm Hfa.aer.ad 1 Puff INH PRN Q6HRS PRN 05/08/20 Reported Advair 100-50 Diskus (Fluticasone/Salmeterol) 1 Each Disk.w.dev 1 Puff IH BID 05/08/20 Reported Comments CXR 05/14/2020 IMPRESSION: 1. Persistent pleural effusions with basilar atelectasis or infiltrates. 2. Tubes and lines unchanged. CTA chest IMPRESSION: 1. No evidence for acute pulmonary embolus the level of the subsegmental branches. More peripheral vessels are not well assessed. 2. Are seen moderate bilateral pleural effusions are seen. 3. Lower atelectasis of the lower lobes and atelectasis of the middle lobe without obvious obstructing mass, etiology is uncertain. Of note there may be small hilar lymph nodes bilaterally that are secured by the pleural effusions and hilar infiltration. Consider further evaluation with bronchoscopy or short interval follow-up CT following resolution of the acute process to further delineate. 4. Indeterminate right adrenal nodule can be correlated with prior imaging is available otherwise close attention on follow-up is recommended. Impression . 1. Acute hypoxic and hypercapnic respiratory failure secondary to multifactorial etiologies including suspected chronic obstructive pulmonary disease with acute exacerbation, non-ST myocardial infarction, and cocaine overdose. 2. Underlying chronic obstructive pulmonary disease, clinically suspected. 3. Abnormal chest x-ray with prominent interstitial markings, probably related to mild interstitial edema.improved 4. Abnormal troponin consistent with non-ST myocardial infarction./? RV infarction 5. Acute kidney injury-- improving 6. Abnormal LFTs. Could be related to hypoperfusion. 7. Urine drug screen positive for cocaine. 8. CT chest neg for PE 9. Arslan atelectasis CT chest IMPRESSION: 1. No evidence for acute pulmonary embolus the level of the subsegmental branches. More peripheral vessels are not well assessed. 2. Are seen moderate bilateral pleural effusions are seen. 3. Lower atelectasis of the lower lobes and atelectasis of the middle lobe without obvious obstructing mass, etiology is uncertain. Of note there may be small hilar lymph nodes bilaterally that are secured by the pleural effusions and hilar infiltration. Consider further evaluation with bronchoscopy or short interval follow-up CT following resolution of the acute process to further delineate. 4. Indeterminate right adrenal nodule can be correlated with prior imaging is available otherwise close attention on follow-up is recommended. Plan . Continue current vent support Fi02 60% and PEEP 7, ABG and CXR reviewed will reduce rate to 20 CTA reviewed-- will repeat CT in 2 months Follow nephrology recs-- cont. HD , neg fluid balance, cr. improving cont. IV steroids Cont. ABX Follow cardiology input Continue TF for nutritional support Discussed with RT and RN Total cumulative critical care time of 30 minutes, reviewing data, labs, chest x-ray, and formulating a plan TOÑA WAGONER MD May 14, 2020 09:59
--- NOTE | 2020-05-14 10:59 | PDOC ---
PROGRESS NOTES Chief Complaint Chief Complaint Assessment/Plan Impression: Respiratory failure requiring vent support 75% fio2 COPD ACUTE HYPOXIC / HYPERCAPNIC RESP FAILURE Slight improvement with persistent basilar density bilaterally more on the left. CXR 05/10 Screen COVID-19 virus infection neg 05/09 NSTEMI (non-ST elevated myocardial infarction) COCAINE ABUSE, present on admit Morbid obesity EVY EVY Echogenic appearing bilateral kidneys probably medical renal disease., worse No evidence of hydronephrosis. Echo to assess LV systolic function pending negative COVID testing Will review records from [facility] in [place], Consider further ischemic evaluation pending course of hospitalization Plan: ICU BED follow pulmonary recommendations for vent management. AC mode, remains intubated/sedated [employer] recommendations greatly appreciated. VENT SUPPORT heparin drip GI PROPHYLAXIS TAPERING IV STEROIDS covid 19 screen negative. Nephrology following HD as per travel consultant cpk Echo to assess LV systolic function pending negative COVID testing review records from [facility] in [place], [place]. when available further ischemic evaluati on pending course of hospitalization picc 05/10 BB moving forward with cocaine cessation counseling VTE Prophylaxis Ordered VTE Prophylaxis Devices: Yes VTE Pharmacological Prophylaxi: Yes History of Present Illness History of Present Illness guarded prognosis 05/11 EVY WORSE, planning dialysis cr 3.4 wt 121 kg , family request transfer to [facility] notified, pending 05/12 patient will start dialysis, discussed with [employer] consultant. No acute events reported overnight, critically stable. 05/13 no acute events reported overnight, case discussed with nursing staff patient in no acute distress no complaints during my visit, he had dialysis yesterday, sister at bedside reassurance provided. 05/14 patient seems to be improving and seems to be making more urine, creatinine noted. No hemodialysis planned for today patient remains critically stable Vitals Vitals Vital Signs Date Time Temp Pulse Resp B/P (MAP) Pulse Ox O2 Delivery O2 Flow Rate FiO2 05/14/20 09:20 70 22 175/93 (120) 94 Ventilator 05/14/20 08:00 98.1 98.1 05/13/20 13:42 15.0 Physical Exam Physical Exam Heart: RRR Abdomen: obese Neurology: SEDATED General: No acute distress, Other (INTUBATED AND SEDATED) Heart: Regular rate, Normal S1, Normal S2 Lungs: Other (decrease bs) Abdomen: Normal bowel sounds, Soft, No tenderness Extremities: No clubbing, No cyanosis Skin: No breakdown, No significant lesion Labs LABS Laboratory Tests Test 05/13/20 12:44 05/13/20 17:07 05/14/20 00:11 05/14/20 05:58 Glucose (Fingerstick) 216 mg/dL (70-99) 177 mg/dL (70-99) 227 mg/dL (70-99) 227 mg/dL (70-99) Test 05/14/20 06:00 05/14/20 07:45 Sodium Level 138 mmol/L (136-145) Potassium Level 4.2 mmol/L (3.5-5.1) Chloride Level 103 mmol/L (98-107) Carbon Dioxide Level 30 mmol/L (21-32) Anion Gap 5 (6-14) Blood Urea Nitrogen 36 mg/dL (8-26) Creatinine 1.8 mg/dL (0.7-1.3) Estimated GFR (Cockcroft-Gault) 47.5 Glucose Level 235 mg/dL (70-99) Calcium Level 7.9 mg/dL (8.5-10.1) O2 Saturation 94 % (92-99) Arterial Blood pH 7.47 (7.35-7.45) Arterial Blood pCO2 at Patient Temp 33 mmHg (35-46) Arterial Blood pO2 at Patient Temp 73 mmHg (75-108) Arterial Blood HCO3 23 mmol/L (21-28) Arterial Blood Base Excess 0 mmol/L (-3-3) FiO2 60 Assessment and Plan Assessmemt and Plan Problems Medical Problems: (1) Cocaine abuse Status: Acute (2) NSTEMI (non-ST elevated myocardial infarction) Status: Acute (3) Respiratory failure Status: Acute (4) Suspected COVID-19 virus infection Status: Acute Comment Review of Relevant I have reviewed the following items jeffrey (where applicable) has been applied. Labs Laboratory Tests Test 05/12/20 15:05 05/12/20 16:05 05/12/20 17:43 05/12/20 23:55 Glucose (Fingerstick) 237 mg/dL (70-99) 181 mg/dL (70-99) 195 mg/dL (70-99) Heparin Anti-Xa Act, Unfractionated 0.46 IU/mL (0.30-0.70) Test 05/13/20 05:42 05/13/20 05:45 05/13/20 08:10 05/13/20 12:44 Glucose (Fingerstick) 226 mg/dL (70-99) 216 mg/dL (70-99) White Blood Count 7.5 x10^3/uL (4.0-11.0) Red Blood Count 5.61 x10^6/uL (4.30-5.70) Hemoglobin 13.2 g/dL (13.0-17.5) Hematocrit 41.7 % (39.0-53.0) Mean Corpuscular Volume 74 fL (79-100) Mean Corpuscular Hemoglobin 23 pg (25-35) Mean Corpuscular Hemoglobin Concent 32 g/dL (31-37) Red Cell Distribution Width 17.5 % (11.5-14.5) Platelet Count 146 x10^3/uL (140-400) Sodium Level 139 mmol/L (136-145) Potassium Level 4.3 mmol/L (3.5-5.1) Chloride Level 103 mmol/L (98-107) Carbon Dioxide Level 29 mmol/L (21-32) Anion Gap 7 (6-14) Blood Urea Nitrogen 41 mg/dL (8-26) Creatinine 2.1 mg/dL (0.7-1.3) Estimated GFR (Cockcroft-Gault) 39.7 Glucose Level 238 mg/dL (70-99) Calcium Level 7.4 mg/dL (8.5-10.1) O2 Saturation 95 % (92-99) Arterial Blood pH 7.45 (7.35-7.45) Arterial Blood pCO2 at Patient Temp 36 mmHg (35-46) Arterial Blood pO2 at Patient Temp 76 mmHg (75-108) Arterial Blood HCO3 24 mmol/L (21-28) Arterial Blood Base Excess 1 mmol/L (-3-3) FiO2 60 Test 05/13/20 17:07 05/14/20 00:11 05/14/20 05:58 05/14/20 06:00 Glucose (Fingerstick) 177 mg/dL (70-99) 227 mg/dL (70-99) 227 mg/dL (70-99) Sodium Level 138 mmol/L (136-145) Potassium Level 4.2 mmol/L (3.5-5.1) Chloride Level 103 mmol/L (98-107) Carbon Dioxide Level 30 mmol/L (21-32) Anion Gap 5 (6-14) Blood Urea Nitrogen 36 mg/dL (8-26) Creatinine 1.8 mg/dL (0.7-1.3) Estimated GFR (Cockcroft-Gault) 47.5 Glucose Level 235 mg/dL (70-99) Calcium Level 7.9 mg/dL (8.5-10.1) Test 05/14/20 07:45 O2 Saturation 94 % (92-99) Arterial Blood pH 7.47 (7.35-7.45) Arterial Blood pCO2 at Patient Temp 33 mmHg (35-46) Arterial Blood pO2 at Patient Temp 73 mmHg (75-108) Arterial Blood HCO3 23 mmol/L (21-28) Arterial Blood Base Excess 0 mmol/L (-3-3) FiO2 60 Laboratory Tests Test 05/13/20 12:44 05/13/20 17:07 05/14/20 00:11 05/14/20 05:58 Glucose (Fingerstick) 216 mg/dL (70-99) 177 mg/dL (70-99) 227 mg/dL (70-99) 227 mg/dL (70-99) Test 05/14/20 06:00 05/14/20 07:45 Sodium Level 138 mmol/L (136-145) Potassium Level 4.2 mmol/L (3.5-5.1) Chloride Level 103 mmol/L (98-107) Carbon Dioxide Level 30 mmol/L (21-32) Anion Gap 5 (6-14) Blood Urea Nitrogen 36 mg/dL (8-26) Creatinine 1.8 mg/dL (0.7-1.3) Estimated GFR (Cockcroft-Gault) 47.5 Glucose Level 235 mg/dL (70-99) Calcium Level 7.9 mg/dL (8.5-10.1) O2 Saturation 94 % (92-99) Arterial Blood pH 7.47 (7.35-7.45) Arterial Blood pCO2 at Patient Temp 33 mmHg (35-46) Arterial Blood pO2 at Patient Temp 73 mmHg (75-108) Arterial Blood HCO3 23 mmol/L (21-28) Arterial Blood Base Excess 0 mmol/L (-3-3) FiO2 60 Microbiology 05/08/20 Blood Culture - Final, Complete NO GROWTH AFTER 5 DAYS Medications Current Medications Propofol 50 ml @ As Directed STK-MED ONCE IV ; Start 05/08/20 at 07:33; Stop 05/08/20 at 07:33; Status DC Propofol 100 ml @ 0 mls/hr CONT PRN IV SEE PROTOCOL Last administered on at 07:25; Start 05/08/20 at 07:45 Fentanyl Citrate (Fentanyl 2ml Vial) 50 mcg PRN Q1HR PRN IV SEE COMMENTS Last administered on 05/08/20at 12:44; Start 05/08/20 at 07:45 Chlorhexidine Gluconate (Peridex) 15 ml BID MM Last administered on 05/14/20at 08:52; Start 05/08/20 at 09:00 Etomidate (Amidate) 20 mg 1X ONCE IV Last administered on 05/08/20at 07:30; Start 05/08/20 at 07:45; Stop 05/08/20 at 09:04; Status DC Succinylcholine Chloride (Anectine) 100 mg 1X ONCE IV Last administered on 05/08/20at 07:31; Start 05/08/20 at 07:45; Stop 05/08/20 at 09:04; Status DC Albuterol/ Ipratropium (Duoneb) 6 ml 1X ONCE NEB ; Start 05/08/20 at 07:45; Stop 05/08/20 at 09:04; Status DC Methylprednisolone Sodium Succinate (SOLU-Medrol 125MG VIAL) 125 mg 1X ONCE IV Last administered on 05/08/20at 08:31; Start 05/08/20 at 07:45; Stop 05/08/20 at 09:04; Status DC Albuterol Sulfate (Ventolin Neb Soln) 2.5 mg 1X ONCE NEB ; Start 05/08/20 at 07:45; Stop 05/08/20 at 08:56; Status DC Ceftriaxone Sodium (Rocephin) 1 gm 1X ONCE IVP Last administered on 05/08/20at 08:31; Start 05/08/20 at 07:45; Stop 05/08/20 at 09:04; Status DC Propofol (Diprivan) 40 mg 1X ONCE IV ; Start 05/08/20 at 08:00; Stop 05/08/20 at 09:04; Status DC Fentanyl Citrate 30 ml @ 0 mls/hr CONT PRN IV SEE PROTOCOL Last administered on 05/14/20at 05:54; Start 05/08/20 at 08:15 Midazolam HCl 100 ml @ 0 mls/hr CONT PRN IV SEE PROTOCOL Last administered on 05/14/20at 08:19; Start 05/08/20 at 08:15 Sodium Chloride 1,000 ml @ 1,000 mls/hr 1X ONCE IV Last administered on 05/08/20at 08:47; Start 05/08/20 at 08:30; Stop 05/08/20 at 09:29; Status DC Midazolam HCl (Versed) 5 mg 1X ONCE IV Last administered on 05/08/20at 08:33; Start 05/08/20 at 08:30; Stop 05/08/20 at 09:04; Status DC Ondansetron HCl (Zofran) 4 mg PRN Q8HRS PRN IV NAUSEA/VOMITING; Start 05/08/20 at 08:45; Stop 05/09/20 at 08:44; Status DC Aspirin (Aspirin Rectal Supp) 300 mg 1X ONCE DE Last administered on 05/08/20at 10:00; Start 05/08/20 at 08:45; Stop 05/08/20 at 09:04; Status DC Sodium Chloride (Normal Saline Flush) 3 ml QSHIFT PRN IV AFTER MEDS AND BLOOD DRAWS; Start 05/08/20 at 11:30; Stop 05/08/20 at 18:55; Status DC Sodium Chloride 1,000 ml @ 60 mls/hr [id number] IV Last administered on 05/08/20at 12:53; Start 05/08/20 at 11:24; Stop 05/08/20 at 18:55; Status DC Ondansetron HCl (Zofran) 4 mg PRN Q4HRS PRN IV NAUSEA/VOMITING; Start 05/08/20 at 11:30; Stop 05/08/20 at 18:55; Status DC Acetaminophen (Tylenol Supp) 650 mg PRN Q4HRS PRN DE TEMP OVER 100.4F OR MILD PAIN; Start 05/08/20 at 11:30; Stop 05/08/20 at 18:47; Status DC Sodium Monofluorophosphate (Fleet Adult) 133 ml PRN DAILY PRN DE CONSTIPATION; Start 05/08/20 at 11:30; Stop 05/08/20 at 18:55; Status DC Albuterol/ Ipratropium (Duoneb) 3 ml Q4H NEB ; Start 05/08/20 at 11:30; Stop 05/08/20 at 15:37; Status DC Enoxaparin Sodium (Lovenox 40mg Syringe) 40 mg DAILY SQ ; Start 05/09/20 at 09:00; Stop 05/08/20 at 18:54; Status DC Pantoprazole Sodium (PROTONIX VIAL for IV PUSH) 40 mg DAILYAC IVP Last administered on 05/14/20at 07:25; Start 05/08/20 at 11:30 Etomidate (Amidate) 40 mg 1X ONCE IV Last administered on 05/08/20at 07:57; Start 05/08/20 at 07:55; Stop 05/08/20 at 12:05; Status DC Methylprednisolone Sodium Succinate (SOLU-Medrol 125MG VIAL) 60 mg Q8HRS IV Last administered on 05/14/20at 05:52; Start 05/08/20 at 14:00 Midazolam HCl (Versed) 5 mg PRN Q15MIN PRN IV SEDATION Last administered on 05/08/20at 12:32; Start 05/08/20 at 08:00 Enoxaparin Sodium (Lovenox Per Pharmacy Prophylaxis Dosing) 1 each PRN DAILY PRN MC SEE COMMENTS; Start 05/08/20 at 16:00; Stop 05/10/20 at 09:14; Status DC Sodium Chloride (Normal Saline Flush) 3 ml QSHIFT PRN IV AFTER MEDS AND BLOOD DRAWS; Start 05/08/20 at 16:15 Sodium Chloride 1,000 ml @ 50 mls/hr Q20H IV Last administered on 05/13/20at 1 6:04; Start 05/08/20 at 16:01 Ondansetron HCl (Zofran) 4 mg PRN Q4HRS PRN IV NAUSEA/VOMITING; Start 05/08/20 at 16:15 Acetaminophen (Tylenol Supp) 650 mg PRN Q4HRS PRN DE TEMP OVER 100.4F OR MILD PAIN; Start 05/08/20 at 16:15 Sodium Monofluorophosphate (Fleet Adult) 133 ml PRN DAILY PRN DE CONSTIPATION; Start 05/08/20 at 16:15 Albuterol/ Ipratropium (Duoneb) 3 ml Q4H NEB ; Start 05/08/20 at 16:15; Stop 05/08/20 at 18:45; Status DC Enoxaparin Sodium (Lovenox 40mg Syringe) 40 mg Q24H SQ Last administered on 05/09/20at 17:04; Start 05/08/20 at 17:00; Stop 05/10/20 at 09:14; Status DC Ceftriaxone Sodium (Rocephin) 1 gm Q24H IVP Last administered on 05/14/20at 08:52; Start 05/09/20 at 08:00 Aspirin (Aspirin Chewable) 81 mg DAILYWBKFT PO ; Start 05/08/20 at 17:30; Stop 05/08/20 at 17:27; Status DC Aspirin (Aspirin Chewable) 81 mg DAILYWBKFT PO Last administered on 05/14/20at 07:25; Start 05/09/20 at 08:00 Albuterol Sulfate (Ventolin Neb Soln) 2.5 mg PRN Q4HRS PRN NEB SHORTNESS OF BREATH; Start 05/08/20 at 19:00 Amlodipine Besylate (Norvasc) 10 mg 1X ONCE PO Last administered on 05/09/20at 14:31; Start 05/09/20 at 14:30; Stop 05/09/20 at 14:31; Status DC Clonidine HCl (Catapres) 0.1 mg PRN Q2HR PRN PO HYPERTENSION Last administered on 05/13/20at 10:18; Start 05/09/20 at 14:30; Stop 05/13/20 at 11:34; Status DC Enoxaparin Sodium (Lovenox Per Pharmacy Treatment Dosing) 1 each PRN DAILY PRN MC SEE COMMENTS; Start 05/10/20 at 09:30; Status Cancel Enoxaparin Sodium (Lovenox 120mg Syringe) 120 mg DAILY SQ Last administered on 05/10/20at 10:19; Start 05/10/20 at 10:00; Stop 05/10/20 at 10:48; Status DC Heparin Sodium/ Dextrose 250 ml @ 10 mls/hr CONT PRN IV PER PROTOCOL Last administered on 05/11/20at 20:59; Start 05/10/20 at 11:00; Stop 05/13/20 at 13:35; Status DC Heparin Sodium (Porcine) (Heparin Sodium) 2,950 unit PRN Q6HRS PRN IV FOR UFH LEVEL LESS THAN 0.2; Start 05/10/20 at 11:00; Stop 05/13/20 at 13:36; Status DC Polyethylene Glycol (miraLAX PACKET) 17 gm PRN DAILY PRN PO CONSTIPATION Last administered on 05/11/20at 11:20; Start 05/10/20 at 16:00 Lidocaine HCl (Buffered Lidocaine 1%) 3 ml STK-MED ONCE .ROUTE ; Start 05/11/20 at 13:30; Stop 05/11/20 at 13:30; Status DC Lidocaine HCl (Buffered Lidocaine 1%) 6 ml 1X ONCE INJ Last administered on 05/11/20at 13:50; Start 05/11/20 at 14:00; Stop 05/11/20 at 14:01; Status DC Sodium Chloride 1,000 ml @ 1,000 mls/hr Q1H PRN IV hypotension; Start 05/11/20 at 15:19; Stop 05/11/20 at 21:18; Status DC Info (PHARMACY MONITORING -- do not chart) 1 each PRN DAILY PRN MC SEE COMMENTS; Start 05/11/20 at 15:30; Status Cancel Info (PHARMACY MONITORING -- do not chart) 1 each PRN DAILY PRN MC SEE COMMENTS; Start 05/11/20 at 15:30; Status UNV Sodium Chloride 1,000 ml @ 1,000 mls/hr Q1H PRN IV hypotension; Start 05/12/20 at 08:28; Stop 05/12/20 at 14:27; Status DC Albumin Human 200 ml @ 200 mls/hr 1X PRN PRN IV Hypotension; Start 05/12/20 at 08:30; Stop 05/12/20 at 14:29; Status DC Sodium Chloride (Normal Saline Flush) 10 ml 1X PRN PRN IV AP catheter pack; Start 05/12/20 at 08:30; Stop 05/13/20 at 08:29; Status DC Sodium Chloride (Normal Saline Flush) 10 ml 1X PRN PRN IV CLIN NURSE SPEC catheter pack; Start 05/12/20 at 08:30; Stop 05/13/20 at 08:29; Status DC Sodium Chloride 1,000 ml @ 400 mls/hr Q2H30M PRN IV PATENCY; Start 05/12/20 at 08:28; Stop 05/12/20 at 20:27; Status DC Info (PHARMACY MONITORING -- do not chart) 1 each PRN DAILY PRN MC SEE COMMENTS; Start 05/12/20 at 08:30; Status UNV Info (PHARMACY MONITORING -- do not chart) 1 each PRN DAILY PRN MC SEE COMMENTS; Start 05/12/20 at 08:30 Info (Anti-Coagulation Monitoring By Pharmacy) 1 each PRN DAILY PRN MC SEE COMMENTS; Start 05/12/20 at 09:15; Stop 05/13/20 at 13:35; Status DC Iohexol (Omnipaque 350 Mg/ml) 100 ml 1X ONCE IV Last administered on 05/12/20at 15:45; Start 05/12/20 at 11:45; Stop 05/12/20 at 11:46; Status DC Info (CONTRAST GIVEN -- Rx MONITORING) 1 each PRN DAILY PRN MC SEE COMMENTS; Start 05/12/20 at 11:45; Stop 05/14/20 at 11:44 Insulin Human Lispro (HumaLOG) 0-5 UNITS TIDWMEALS SQ Last administered on 05/12/20at 18:16; Start 05/12/20 at 13:00; Stop 05/12/20 at 19:02; Status DC Dextrose (Dextrose 50%-Water Syringe) 12.5 gm PRN Q15MIN PRN IV SEE COMMENTS; Start 05/12/20 at 12:45 Dextrose (Iv Dextrose 5%) 250 ml PRN Q15MIN PRN IV SEE COMMENTS; Start 05/12/20 at 12:45 Insulin Human Lispro (HumaLOG) 0-5 UNITS Q6HRS SQ Last administered on 05/14/20at 06:00; Start 05/13/20 at 00:00 Labetalol HCl (Normodyne Iv Push) 10 mg PRN Q4HRS PRN IVP HYPERTENSION Last administered on 05/14/20at 09:03; Start 05/13/20 at 12:00 Sodium Chloride 1,000 ml @ 1,000 mls/hr Q1H PRN IV hypotension; Start 05/13/20 at 12:00; Stop 05/13/20 at 19:00; Status DC Sodium Chloride 1,000 ml @ 400 mls/hr Q2H30M PRN IV PATENCY; Start 05/13/20 at 12:00; Stop 05/13/20 at 19:00; Status DC Info (PHARMACY MONITORING -- do not chart) 1 each PRN DAILY PRN MC SEE COMMENTS; Start 05/13/20 at 12:00; Status UNV Info (PHARMACY MONITORING -- do not chart) 1 each PRN DAILY PRN MC SEE COMMENTS; Start 05/13/20 at 12:00; Status UNV Heparin Sodium (Porcine) (Heparin Sodium) 5,000 unit Q12HR SQ Last administered on 05/14/20at 08:53; Start 05/13/20 at 21:00 Active Scripts Active Reported [amlodipine benazep] Unknown Dose PO Proventil Hfa (Albuterol Sulfate) 6.7 Gm Hfa.aer.ad 1 Puff INH PRN Q6HRS PRN Advair 100-50 Diskus (Fluticasone/Salmeterol) 1 Each Disk.w.dev 1 Puff IH BID Vitals/I & O Vital Sign - Last 24 Hours 05/13/20 05/13/20 05/13/20 05/13/20 11:00 11:20 12:00 12:00 Temp 98.6 98.6 Pulse 67 60 Resp 22 22 B/P (MAP) 177/105 (129) 154/91 (112) Pulse Ox 97 97 98 O2 Delivery Ventilator Ventilator Mechanical Ventilator Ventilator 05/13/20 05/13/20 05/13/20 05/13/20 13:00 13:42 14:00 15:00 Pulse 54 62 58 Resp 22 22 22 B/P (MAP) 145/90 (108) 133/81 (98) 118/75 (89) Pulse Ox 99 99 99 99 O2 Delivery Ventilator Ventilator Ventilator Ventilator O2 Flow Rate 15.0 05/13/20 05/13/20 05/13/20 05/13/20 15:52 16:00 16:00 17:00 Temp 98.6 98.6 Pulse 64 69 Resp 22 22 B/P (MAP) 141/88 (105) 144/99 (114) Pulse Ox 100 99 99 O2 Delivery Ventilator Mechanical Ventilator Ventilator Ventilator 05/13/20 05/13/20 05/13/20 05/13/20 18:00 19:00 19:48 20:00 Pulse 65 65 Resp 22 22 22 B/P (MAP) 154/100 (118) 155/97 (116) Pulse Ox 99 95 O2 Delivery Ventilator Ventilator Ventilator Mechanical Ventilator 05/13/20 05/13/20 05/13/20 05/13/20 20:00 20:09 20:18 21:00 Temp 98.2 98.2 Pulse 70 64 Resp 22 22 22 B/P (MAP) 148/89 (108) 150/90 (110) Pulse Ox 97 100 96 O2 Delivery Ventilator Ventilator Ventilator Ventilator 05/13/20 05/13/20 05/13/20 05/13/20 22:00 23:00 23:18 23:59 Pulse 68 61 Resp 22 22 B/P (MAP) 154/91 (112) 143/84 (103) Pulse Ox 96 97 100 O2 Delivery Ventilator Ventilator Ventilator Mechanical Ventilator 05/14/20 05/14/20 05/14/20 05/14/20 00:01 01:00 02:00 03:00 Temp 98.1 98.1 Pulse 60 78 79 82 Resp 22 22 22 B/P (MAP) 152/88 (109) 161/97 (118) 154/93 (113) 164/92 (116) Pulse Ox 97 97 98 97 O2 Delivery Ventilator Ventilator Ventilator Ventilator 05/14/20 05/14/20 05/14/20 05/14/20 04:00 04:00 05:00 05:06 Temp 98.0 98.0 Pulse 67 62 Resp 22 22 B/P (MAP) 151/89 (109) 157/91 (113) Pulse Ox 97 97 100 O2 Delivery Mechanical Ventilator Ventilator Ventilator Ventilator 05/14/20 05/14/20 05/14/20 05/14/20 05:54 06:00 07:00 07:45 Pulse 56 62 Resp 22 22 22 B/P (MAP) 155/90 (111) 150/86 (107) Pulse Ox 98 98 100 O2 Delivery Ventilator Ventilator Ventilator Ventilator 05/14/20 05/14/20 05/14/20 05/14/20 08:00 08:00 09:00 09:03 Temp 98.1 98.1 Pulse 59 69 69 Resp 22 22 B/P (MAP) 169/97 (121) 181/107 (131) 181/107 Pulse Ox 98 95 O2 Delivery Ventilator Mechanical Ventilator Ventilator 05/14/20 09:20 Pulse 70 Resp 22 B/P (MAP) 175/93 (120) Pulse Ox 94 O2 Delivery Ventilator Intake and Output 05/13/20 05/13/20 05/14/20 15:00 23:00 07:00 Intake Total 340 ml 2140 ml 2416.93 ml Output Total 700 ml 645 ml 850 ml Balance -360 ml 1495 ml 1566.93 ml PRASANNA FERNANDES MD May 14, 2020 10:59
[2020-05-14] MEDS: amLODIPine BESYLATE 10 MG TABLET PO SCH (11:46)
[2020-05-14] MEDS: hydrALAZINE 20 MG/ML VIAL. IVP SCH ×2 (11:47→23:00)
[2020-05-14] MEDS: IV NORMAL SALINE 1000ML BAG 1,000 ML IV SCH (11:48)
--- NOTE | 2020-05-14 11:49 | PDOC ---
Renal-Progress Notes Subjective Notes Notes INTUBATED History of Present Illness Hx of present illness NO CHANGE Vitals Vitals Vital Signs Date Time Temp Pulse Resp B/P (MAP) Pulse Ox O2 Delivery O2 Flow Rate FiO2 05/14/20 09:20 70 22 175/93 (120) 94 Ventilator 05/14/20 08:00 98.1 98.1 05/13/20 13:42 15.0 Weight Weight [ ] I.O. Intake and Output Intake and Output 05/14/20 07:00 Intake Total 4896.93 ml Output Total 2195 ml Balance 2701.93 ml IV Total 1093.93 ml Tube Feeding 2385 ml Other 1418 ml Output Urine Total 2195 ml Gastric Drainage Total 0 ml Labs Labs Laboratory Tests Test 05/13/20 12:44 05/13/20 17:07 05/14/20 00:11 05/14/20 05:58 Glucose (Fingerstick) 216 mg/dL (70-99) 177 mg/dL (70-99) 227 mg/dL (70-99) 227 mg/dL (70-99) Test 05/14/20 06:00 05/14/20 07:45 Sodium Level 138 mmol/L (136-145) Potassium Level 4.2 mmol/L (3.5-5.1) Chloride Level 103 mmol/L (98-107) Carbon Dioxide Level 30 mmol/L (21-32) Anion Gap 5 (6-14) Blood Urea Nitrogen 36 mg/dL (8-26) Creatinine 1.8 mg/dL (0.7-1.3) Estimated GFR (Cockcroft-Gault) 47.5 Glucose Level 235 mg/dL (70-99) Calcium Level 7.9 mg/dL (8.5-10.1) O2 Saturation 94 % (92-99) Arterial Blood pH 7.47 (7.35-7.45) Arterial Blood pCO2 at Patient Temp 33 mmHg (35-46) Arterial Blood pO2 at Patient Temp 73 mmHg (75-108) Arterial Blood HCO3 23 mmol/L (21-28) Arterial Blood Base Excess 0 mmol/L (-3-3) FiO2 60 Micro Micro Microbiology 05/08/20 Blood Culture - Final, Complete NO GROWTH AFTER 5 DAYS Review of Systems Constitutional: yes: other (ON THE VENT SEDATED) Physical Exam General Appearance: no apparent distress Skin: warm Respiratory: ventilator (Mode:A/C), decreased breath sounds Heart: S1S2 Abdomen: soft, bowel sounds present Genitourinary: bladder flat Extremities: pulses present Neurology: other (sedated) Assessment Assessment IMP EVY - ATN UO IMPROVING-CR 1.8 HYPERKALEMIA-RESOLVED POSSIBLE RHABDOMYOLYSIS-CK NL NOW ACUTE ON CHRONIC HYPERCARBIC HYPOXIC RESP FAILURE-FIO2 OF 60% SUBSTANCE ABUSE-COCAINE LEUCOCYTOSIS-PROB REACTIVE NSTEMI HYPERGLYCEMIA ? ADRENAL MASS HTN PLAN COVID 19 NEG VENT SUPPORT ATTEMPT TO DIURESE CTA NEG FOR PE NEPRO TF TO CONTINUE CARDIOLOGY AND PULM EVAL HD AGAIN ON HOLD FOR NOW TENTATIVE HD FRIDAY LOOK FOR RENAL RECOVERY CLOVER REID MD May 14, 2020 11:49
[2020-05-14] MEDS ORDERED: FUROSEMIDE 100 MG/10 ML VIAL. IVP ONE (12:00)
--- NOTE | 2020-05-14 23:00 | NUR ---
2100 dose of Hydralazine held since SBP 114 and less; reevaluated at 2200 and 2300 with SBP 108 and 97 respectively. Hydralazine non-administered.
[2020-05-15] VITALS (25 sets, daily range): BP systolic 93–159; BP diastolic 49–97
[2020-05-15] MEDS: INSULIN LISPRO 300 UNITS/3 ML VIAL. SQ SCH ×4 (00:51→18:50)
[2020-05-15] MEDS: PROPOFOL 100 ML IV PRN ×6 (01:25→21:36)
[2020-05-15] MEDS: methylPREDNISolone SOD SUCC PF 125 MG/2 ML VIAL. IV SCH ×3 (06:08→21:31)
[2020-05-15 06:48] LABS: CALCIUM 7.9 mg/dL (8.5-10.1); CREATININE 1.7 mg/dL (0.7-1.3); GFR 50.7; PHOSPHORUS 5.5 mg/dL (2.6-4.7); POTASSIUM 4.4 mmol/L (3.5-5.1)
[2020-05-15 07:47] LABS: BASE EXCESS ABG -3 mmol/L (-3-3); HCO3 ABG 23 mmol/L (21-28); PCO2 ABG 44 mmHg (35-46); PO2 ABG 80 mmHg (75-108); SAT O2 ABG 94 % (92-99)
[2020-05-15 07:48] LABS: FIO2 ABG 60
[2020-05-15] MEDS: IV NORMAL SALINE 1000ML BAG 1,000 ML IV SCH (07:51)
--- NOTE | 2020-05-15 09:18 | PDOC ---
PROGRESS NOTES Chief Complaint Chief Complaint Assessment/Plan Impression: Respiratory failure requiring vent support 75% fio2 COPD ACUTE HYPOXIC / HYPERCAPNIC RESP FAILURE Slight improvement with persistent basilar density bilaterally more on the left. CXR 05/10 Screen COVID-19 virus infection neg 05/09 NSTEMI (non-ST elevated myocardial infarction) left ventricular systolic function is mildly impaired. Ejection Fraction is 45%. tricuspid regurgitation with an estimated PAP of 54 mmHg. COCAINE ABUSE, present on admit Morbid obesity EVY RENAL FX IMPROVING EVY Echogenic appearing bilateral kidneys probably medical renal disease., worse No evidence of hydronephrosis. negative COVID testing Consider further ischemic evaluation pending course of hospitalization Plan: ICU BED follow pulmonary recommendations for vent management. AC mode, remains intubated/sedated CARDIOLOGY FOLLOWING recommendations greatly appreciated. VENT SUPPORT heparin drip GI PROPHYLAXIS TAPERING IV STEROIDS covid 19 screen negative. Nephrology following cpk Echo to assess LV systolic function pending negative COVID testing review records from [facility] in [place], [place]. when available further ischemic evaluation pending course of hospitalization picc 05/10 BB moving forward with cocaine cessation counseling The patient was evaluated during the global COVID-19 pandemic, and that diagnosis was suspected/considered upon their initial presentation. Their evaluation, treatment and testing was consistent with current guidelines for patients who present with complaints or symptoms that may be related to COVID- 19. 36 MIN CC TIME VTE Prophylaxis Ordered VTE Prophylaxis Devices: Yes VTE Pharmacological Prophylaxi: Yes History of Present Illness History of Present Illness guarded prognosis 05/11 EVY WORSE, planning dialysis cr 3.4 wt 121 kg , family request transfer to [facility] notified, pending 05/12 patient will start dialysis, discussed with hospice consultant. No acute events reported overnight, critically stable. 05/13 no acute events reported overnight, case discussed with nursing staff patient in no acute distress no complaints during my visit, he had dialysis yesterday, sister at bedside reassurance provided. 05/15 patient seems to be improving and seems to be making more urine, creatinine noted. No hemodialysis planned for today patient remains critically stable ? Adrenal mass Indeterminate right adrenal nodule can be correlated with prior imaging is available otherwise close attention on follow-up is recommended. 33 MIN CC TIME Vitals Vitals Vital Signs Date Time Temp Pulse Resp B/P (MAP) Pulse Ox O2 Delivery O2 Flow Rate FiO2 05/15/20 07:30 97 Ventilator 05/15/20 07:00 77 18 113/68 (83) 05/15/20 04:00 98.9 98.9 Physical Exam Physical Exam Heart: RRR Abdomen: obese Neurology: SEDATED General: No acute distress, Other (INTUBATED AND SEDATED) Heart: Regular rate, Normal S1, Normal S2 Lungs: Other (decrease bs) Abdomen: Normal bowel sounds, Soft, No tenderness Extremities: No clubbing, No cyanosis, No edema Skin: No breakdown, No significant lesion Labs LABS AP chest. HISTORY: Short of breath, intubated AP view was taken of the chest. NG tube extends into the abdomen. Endotracheal tube remains in good position. Dialysis catheter is unchanged. There are bilateral effusions. There is atelectasis or consolidation in both lower lobes. There has been little change from the recent prior study. IMPRESSION: 1. Persistent pleural effusions with basilar atelectasis or infiltrates. 2. Tubes and lines unchanged. Electronically signed by: Pio Melendrez MD (05/14/2020 5:50 AM) [id number] DICTATED and SIGNED BY: PIO MELENDREZ MD DATE: 05/14/20 0550 LEFT VENTRICLE The left ventricle is normal size. There is mild left ventricular hypertrophy. The left ventricular systolic function is mildly impaired. The Ejection Fraction is 45%. There is global hypokinesis of the left ventricle. RIGHT VENTRICLE The right ventricle is mildly dilated. There is normal right ventricular wall thickness. Systolic function is borderline reduced. ATRIA The left atrium is borderline dilated. The right atrium is moderately dilated. The interatrial septum is intact with no evidence for an atrial septal defect or patent foramen ovale as noted on 2-D or Doppler imaging. AORTIC VALVE The aortic valve is normal in structure and function. Doppler and Color Flow revealed no significant aortic regurgitation. There is no significant aortic valvular stenosis. MITRAL VALVE The mitral valve is normal in structure and function. There is no evidence of mitral valve prolapse. There is no mitral valve stenosis. Doppler and Color Flow revealed no mitral valve regurgitation noted. TRICUSPID VALVE The tricuspid valve is normal in structure and function. Doppler and Color Flow revealed trace tricuspid regurgitation with an estimated PAP of 54 mmHg. There is no tricuspid valve stenosis. PULMONIC VALVE The pulmonic valve is not well visualized. Doppler and Color Flow revealed no pulmonic valvular regurgitation. GREAT VESSELS The aortic root is normal in size. The IVC is dilated and collapses <50% with inspiration. PERICARDIAL EFFUSION There is no evidence of significant pericardial effusion. Critical Notification Critical Value: No <Conclusion> The left ventricular systolic function is mildly impaired. The Ejection Fraction is 45%. Trace tricuspid regurgitation with an estimated PAP of 54 mmHg. There is no evidence of significant pericardial effusion. Signed by : William Benavidez, Electronically Approved : 05/10/2020 10:11:44 DICTATED and SIGNED BY: WILLIAM BENAVIDEZ MD DATE: 05/10/20 0953 RUST compliance statement - One or more of the following individualized dose reduction techniques were utilized for this study: 1. Automated exposure control 2. Adjustment of the mA and/or kV according to patient size 3. Use of iterative reconstruction technique--- FINDINGS: CHEST: Diagnostic quality: Borderline adequate contrast bolus although parenchymal opacities and pleural effusions limited evaluation of distal pulmonary arteries. Pulmonary emboli: No pulmonary emboli to the level of the segmental branches. More peripheral vessels are not well assessed. Right heart strain: None Pulmonary arteries: Normal in caliber. ET tube tip terminates within the mid to distal thoracic trachea. Enteric tube tip terminates within the body of the stomach. Vascular catheter terminates within the distal SVC. Heart is not enlarged. Small pericardial effusion. Prominent pericardial recesses are seen. No mediastinal or hilar lymphadenopathy. There is volume loss with lobar collapse of the lower lobes bilaterally as well as a portion of the middle lobe. No obvious obstructing mass is identified linear opacities in the lingula likely scarring/atelectasis. Background of emphysematous change. Small to moderate bilateral pleural effusions. No axillary lymphadenopathy. Thyroid is grossly unremarkable. No aggressive osseous lesion is definitively seen. Visualized Upper abdomen: 7 mm right adrenal nodule is indeterminate. Otherwise upper abdomen is unremarkable. Trace perihepatic ascites. Bones: No aggressive osseous lesion is seen. IMPRESSION: 1. No evidence for acute pulmonary embolus the level of the subsegmental branches. More peripheral vessels are not well assessed. 2. Are seen moderate bilateral pleural effusions are seen. 3. Lower atelectasis of the lower lobes and atelectasis of the middle lobe without obvious obstructing mass, etiology is uncertain. Of note there may be small hilar lymph nodes bilaterally that are secured by the pleural effusions and hilar infiltration. Consider further evaluation with bronchoscopy or short interval follow-up CT following resolution of the acute process to further delineate. 4. Indeterminate right adrenal nodule can be correlated with prior imaging is available otherwise close attention on follow-up is recommended. Electronically signed by: Miller Mcbride MD (05/12/2020 4:20 PM) [facility] Laboratory Tests Test 05/14/20 11:59 05/14/20 17:20 05/15/20 00:35 05/15/20 06:00 Glucose (Fingerstick) 259 mg/dL (70-99) 250 mg/dL (70-99) 208 mg/dL (70-99) Sodium Level 140 mmol/L (136-145) Potassium Level 4.4 mmol/L (3.5-5.1) Chloride Level 103 mmol/L (98-107) Carbon Dioxide Level 31 mmol/L (21-32) Anion Gap 6 (6-14) Blood Urea Nitrogen 42 mg/dL (8-26) Creatinine 1.7 mg/dL (0.7-1.3) Estimated GFR (Cockcroft-Gault) 50.7 Glucose Level 230 mg/dL (70-99) Calcium Level 7.9 mg/dL (8.5-10.1) Phosphorus Level 5.5 mg/dL (2.6-4.7) Magnesium Level 2.0 mg/dL (1.8-2.4) Test 05/15/20 06:10 05/15/20 07:30 Glucose (Fingerstick) 212 mg/dL (70-99) O2 Saturation 94 % (92-99) Arterial Blood pH 7.34 (7.35-7.45) Arterial Blood pCO2 at Patient Temp 44 mmHg (35-46) Arterial Blood pO2 at Patient Temp 80 mmHg (75-108) Arterial Blood HCO3 23 mmol/L (21-28) Arterial Blood Base Excess -3 mmol/L (-3-3) FiO2 60 Assessment and Plan Assessmemt and Plan Problems Medical Problems: (1) Cocaine abuse Status: Acute (2) NSTEMI (non-ST elevated myocardial infarction) Status: Acute (3) Respiratory failure Status: Acute (4) Suspected COVID-19 virus infection Status: Acute Comment Review of Relevant I have reviewed the following items jeffrey (where applicable) has been applied. Labs Laboratory Tests Test 05/13/20 12:44 05/13/20 17:07 05/14/20 00:11 05/14/20 05:58 Glucose (Fingerstick) 216 mg/dL (70-99) 177 mg/dL (70-99) 227 mg/dL (70-99) 227 mg/dL (70-99) Test 05/14/20 06:00 05/14/20 07:45 05/14/20 11:59 05/14/20 17:20 Sodium Level 138 mmol/L (136-145) Potassium Level 4.2 mmol/L (3.5-5.1) Chloride Level 103 mmol/L (98-107) Carbon Dioxide Level 30 mmol/L (21-32) Anion Gap 5 (6-14) Blood Urea Nitrogen 36 mg/dL (8-26) Creatinine 1.8 mg/dL (0.7-1.3) Estimated GFR (Cockcroft-Gault) 47.5 Glucose Level 235 mg/dL (70-99) Calcium Level 7.9 mg/dL (8.5-10.1) O2 Saturation 94 % (92-99) Arterial Blood pH 7.47 (7.35-7.45) Arterial Blood pCO2 at Patient Temp 33 mmHg (35-46) Arterial Blood pO2 at Patient Temp 73 mmHg (75-108) Arterial Blood HCO3 23 mmol/L (21-28) Arterial Blood Base Excess 0 mmol/L (-3-3) FiO2 60 Glucose (Fingerstick) 259 mg/dL (70-99) 250 mg/dL (70-99) Test 05/15/20 00:35 05/15/20 06:00 05/15/20 06:10 05/15/20 07:30 Glucose (Fingerstick) 208 mg/dL (70-99) 212 mg/dL (70-99) Sodium Level 140 mmol/L (136-145) Potassium Level 4.4 mmol/L (3.5-5.1) Chloride Level 103 mmol/L (98-107) Carbon Dioxide Level 31 mmol/L (21-32) Anion Gap 6 (6-14) Blood Urea Nitrogen 42 mg/dL (8-26) Creatinine 1.7 mg/dL (0.7-1.3) Estimated GFR (Cockcroft-Gault) 50.7 Glucose Level 230 mg/dL (70-99) Calcium Level 7.9 mg/dL (8.5-10.1) Phosphorus Level 5.5 mg/dL (2.6-4.7) Magnesium Level 2.0 mg/dL (1.8-2.4) O2 Saturation 94 % (92-99) Arterial Blood pH 7.34 (7.35-7.45) Arterial Blood pCO2 at Patient Temp 44 mmHg (35-46) Arterial Blood pO2 at Patient Temp 80 mmHg (75-108) Arterial Blood HCO3 23 mmol/L (21-28) Arterial Blood Base Excess -3 mmol/L (-3-3) FiO2 60 Laboratory Tests Test 05/14/20 11:59 05/14/20 17:20 05/15/20 00:35 05/15/20 06:00 Glucose (Fingerstick) 259 mg/dL (70-99) 250 mg/dL (70-99) 208 mg/dL (70-99) Sodium Level 140 mmol/L (136-145) Potassium Level 4.4 mmol/L (3.5-5.1) Chloride Level 103 mmol/L (98-107) Carbon Dioxide Level 31 mmol/L (21-32) Anion Gap 6 (6-14) Blood Urea Nitrogen 42 mg/dL (8-26) Creatinine 1.7 mg/dL (0.7-1.3) Estimated GFR (Cockcroft-Gault) 50.7 Glucose Level 230 mg/dL (70-99) Calcium Level 7.9 mg/dL (8.5-10.1) Phosphorus Level 5.5 mg/dL (2.6-4.7) Magnesium Level 2.0 mg/dL (1.8-2.4) Test 05/15/20 06:10 05/15/20 07:30 Glucose (Fingerstick) 212 mg/dL (70-99) O2 Saturation 94 % (92-99) Arterial Blood pH 7.34 (7.35-7.45) Arterial Blood pCO2 at Patient Temp 44 mmHg (35-46) Arterial Blood pO2 at Patient Temp 80 mmHg (75-108) Arterial Blood HCO3 23 mmol/L (21-28) Arterial Blood Base Excess -3 mmol/L (-3-3) FiO2 60 Microbiology 05/08/20 Blood Culture - Final, Complete NO GROWTH AFTER 5 DAYS Medications Current Medications Propofol 50 ml @ As Directed STK-MED ONCE IV ; Start 05/08/20 at 07:33; Stop 05/08/20 at 07:33; Status DC Propofol 100 ml @ 0 mls/hr CONT PRN IV SEE PROTOCOL Last administered on 05/15/20at 07:50; Start 05/08/20 at 07:45 Fentanyl Citrate (Fentanyl 2ml Vial) 50 mcg PRN Q1HR PRN IV SEE COMMENTS Last administered on 05/08/20at 12:44; Start 05/08/20 at 07:45 Chlorhexidine Gluconate (Peridex) 15 ml BID MM Last administered on 05/14/20at 20:07; Start 05/08/20 at 09:00 Etomidate (Amidate) 20 mg 1X ONCE IV Last administered on 05/08/20at 07:30; Start 05/08/20 at 07:45; Stop 05/08/20 at 09:04; Status DC Succinylcholine Chloride (Anectine) 100 mg 1X ONCE IV Last administered on 05/08/20at 07:31; Start 05/08/20 at 07:45; Stop 05/08/20 at 09:04; Status DC Albuterol/ Ipratropium (Duoneb) 6 ml 1X ONCE NEB ; Start 05/08/20 at 07:45; Stop 05/08/20 at 09:04; Status DC Methylprednisolone Sodium Succinate (SOLU-Medrol 125MG VIAL) 125 mg 1X ONCE IV Last administered on 05/08/20at 08:31; Start 05/08/20 at 07:45; Stop 05/08/20 at 09:04; Status DC Albuterol Sulfate (Ventolin Neb Soln) 2.5 mg 1X ONCE NEB ; Start 05/08/20 at 07:45; Stop 05/08/20 at 08:56; Status DC Ceftriaxone Sodium (Rocephin) 1 gm 1X ONCE IVP Last administered on 05/08/20at 08:31; Start 05/08/20 at 07:45; Stop 05/08/20 at 09:04; Status DC Propofol (Diprivan) 40 mg 1X ONCE IV ; Start 05/08/20 at 08:00; Stop 05/08/20 at 09:04; Status DC Fentanyl Citrate 30 ml @ 0 mls/hr CONT PRN IV SEE PROTOCOL Last administered on 05/15/20at 04:20; Start 05/08/20 at 08:15 Midazolam HCl 100 ml @ 0 mls/hr CONT PRN IV SEE PROTOCOL Last administered on 05/14/20at 23:34; Start 05/08/20 at 08:15 Sodium Chloride 1,000 ml @ 1,000 mls/hr 1X ONCE IV Last administered on 05/08/20at 08:47; Start 05/08/20 at 08:30; Stop 05/08/20 at 09:29; Status DC Midazolam HCl (Versed) 5 mg 1X ONCE IV Last administered on 05/08/20at 08:33; Start 05/08/20 at 08:30; Stop 05/08/20 at 09:04; Status DC Ondansetron HCl (Zofran) 4 mg PRN Q8HRS PRN IV NAUSEA/VOMITING; Start 05/08/20 at 08:45; Stop 05/09/20 at 08:44; Status DC Aspirin (Aspirin Rectal Supp) 300 mg 1X ONCE FL Last administered on 05/08/20at 10:00; Start 05/08/20 at 08:45; Stop 05/08/20 at 09:04; Status DC Sodium Chloride (Normal Saline Flush) 3 ml QSHIFT PRN IV AFTER MEDS AND BLOOD DRAWS; Start 05/08/20 at 11:30; Stop 05/08/20 at 18:55; Status DC Sodium Chloride 1,000 ml @ 60 mls/hr [id number] IV Last administered on 05/08/20at 12:53; Start 05/08/20 at 11:24; Stop 05/08/20 at 18:55; Status DC Ondansetron HCl (Zofran) 4 mg PRN Q4HRS PRN IV NAUSEA/VOMITING; Start 05/08/20 at 11:30; Stop 05/08/20 at 18:55; Status DC Acetaminophen (Tylenol Supp) 650 mg PRN Q4HRS PRN FL TEMP OVER 100.4F OR MILD PAIN; Start 05/08/20 at 11:30; Stop 05/08/20 at 18:47; Status DC Sodium Monofluorophosphate (Fleet Adult) 133 ml PRN DAILY PRN FL CONSTIPATION; Start 05/08/20 at 11:30; Stop 05/08/20 at 18:55; Status DC Albuterol/ Ipratropium (Duoneb) 3 ml Q4H NEB ; Start 05/08/20 at 11:30; Stop 05/08/20 at 15:37; Status DC Enoxaparin Sodium (Lovenox 40mg Syringe) 40 mg DAILY SQ ; Start 05/09/20 at 09:00; Stop 05/08/20 at 18:54; Status DC Pantoprazole Sodium (PROTONIX VIAL for IV PUSH) 40 mg DAILYAC IVP Last administered on 05/14/20at 07:25; Start 05/08/20 at 11:30 Etomidate (Amidate) 40 mg 1X ONCE IV Last administered on 05/08/20at 07:57; Start 05/08/20 at 07:55; Stop 05/08/20 at 12:05; Status DC Methylprednisolone Sodium Succinate (SOLU-Medrol 125MG VIAL) 60 mg Q8HRS IV Last administered on 05/15/20at 06:08; Start 05/08/20 at 14:00 Midazolam HCl (Versed) 5 mg PRN Q15MIN PRN IV SEDATION Last administered on 05/08/20at 12:32; Start 05/08/20 at 08:00 Enoxaparin Sodium (Lovenox Per Pharmacy Prophylaxis Dosing) 1 each PRN DAILY PRN MC SEE COMMENTS; Start 05/08/20 at 16:00; Stop 05/10/20 at 09:14; Status DC Sodium Chloride (Normal Saline Flush) 3 ml QSHIFT PRN IV AFTER MEDS AND BLOOD DRAWS; Start 05/08/20 at 16:15 Sodium Chloride 1,000 ml @ 50 mls/hr Q20H IV Last administered on 05/15/20at 07:51; Start 05/08/20 at 16:01 Ondansetron HCl (Zofran) 4 mg PRN Q4HRS PRN IV NAUSEA/VOMITING; Start 05/08/20 at 16:15 Acetaminophen (Tylenol Supp) 650 mg PRN Q4HRS PRN [place] TEMP OVER 100.4F OR MILD PAIN; Start 05/08/20 at 16:15 Sodium Monofluorophosphate (Fleet Adult) 133 ml PRN DAILY PRN FL CONSTIPATION; Start 05/08/20 at 16:15 Albuterol/ Ipratropium (Duoneb) 3 ml Q4H NEB ; Start 05/08/20 at 16:15; Stop 05/08/20 at 18:45; Status DC Enoxaparin Sodium (Lovenox 40mg Syringe) 40 mg Q24H SQ Last administered on 05/09/20at 17:04; Start 05/08/20 at 17:00; Stop 05/10/20 at 09:14; Status DC Ceftriaxone Sodium (Rocephin) 1 gm Q24H IVP Last administered on 05/14/20at 08:52; Start 05/09/20 at 08:00 Aspirin (Aspirin Chewable) 81 mg DAILYWBKFT PO ; Start 05/08/20 at 17:30; Stop 05/08/20 at 17:27; Status DC Aspirin (Aspirin Chewable) 81 mg DAILYWBKFT PO Last administered on 05/14/20at 07:25; Start 05/09/20 at 08:00 Albuterol Sulfate (Ventolin Neb Soln) 2.5 mg PRN Q4HRS PRN NEB SHORTNESS OF BREATH; Start 05/08/20 at 19:00 Amlodipine Besylate (Norvasc) 10 mg 1X ONCE PO Last administered on 05/09/20at 14:31; Start 05/09/20 at 14:30; Stop 05/09/20 at 14:31; Status DC Clonidine HCl (Catapres) 0.1 mg PRN Q2HR PRN PO HYPERTENSION Last administered on 05/13/20at 10:18; Start 05/09/20 at 14:30; Stop 05/13/20 at 11:34; Status DC Enoxaparin Sodium (Lovenox Per Pharmacy Treatment Dosing) 1 each PRN DAILY PRN MC SEE COMMENTS; Start 05/10/20 at 09:30; Status Cancel Enoxaparin Sodium (Lovenox 120mg Syringe) 120 mg DAILY SQ Last administered on 05/10/20at 10:19; Start 05/10/20 at 10:00; Stop 05/10/20 at 10:48; Status DC Heparin Sodium/ Dextrose 250 ml @ 10 mls/hr CONT PRN IV PER PROTOCOL Last administered on 05/11/20at 20:59; Start 05/10/20 at 11:00; Stop 05/13/20 at 13:35; Status DC Heparin Sodium (Porcine) (Heparin Sodium) 2,950 unit PRN Q6HRS PRN IV FOR UFH LEVEL LESS THAN 0.2; Start 05/10/20 at 11:00; Stop 05/13/20 at 13:36; Status DC Polyethylene Glycol (miraLAX PACKET) 17 gm PRN DAILY PRN PO CONSTIPATION Last administered on 05/11/20at 11:20; Start 05/10/20 at 16:00 Lidocaine HCl (Buffered Lidocaine 1%) 3 ml STK-MED ONCE .ROUTE ; Start 05/11/20 at 13:30; Stop 05/11/20 at 13:30; Status DC Lidocaine HCl (Buffered Lidocaine 1%) 6 ml 1X ONCE INJ Last administered on 05/11/20at 13:50; Start 05/11/20 at 14:00; Stop 05/11/20 at 14:01; Status DC Sodium Chloride 1,000 ml @ 1,000 mls/hr Q1H PRN IV hypotension; Start 05/11/20 at 15:19; Stop 05/11/20 at 21:18; Status DC Info (PHARMACY MONITORING -- do not chart) 1 each PRN DAILY PRN MC SEE COMMENTS; Start 05/11/20 at 15:30; Status Cancel Info (PHARMACY MONITORING -- do not chart) 1 each PRN DAILY PRN MC SEE COMMENTS; Start 05/11/20 at 15:30; Status UNV Sodium Chloride 1,000 ml @ 1,000 mls/hr Q1H PRN IV hypotension; Start 05/12/20 at 08:28; Stop 05/12/20 at 14:27; Status DC Albumin Human 200 ml @ 200 mls/hr 1X PRN PRN IV Hypotension; Start 05/12/20 at 08:30; Stop 05/12/20 at 14:29; Status DC Sodium Chloride (Normal Saline Flush) 10 ml 1X PRN PRN IV AP catheter pack; Start 05/12/20 at 08:30; Stop 05/13/20 at 08:29; Status DC Sodium Chloride (Normal Saline Flush) 10 ml 1X PRN PRN IV [employer]IST catheter pack; Start 05/12/20 at 08:30; Stop 05/13/20 at 08:29; Status DC Sodium Chloride 1,000 ml @ 400 mls/hr Q2H30M PRN IV PATENCY; Start 05/12/20 at 08:28; Stop 05/12/20 at 20:27; Status DC Info (PHARMACY MONITORING -- do not chart) 1 each PRN DAILY PRN MC SEE COMMENTS; Start 05/12/20 at 08:30; Status UNV Info (PHARMACY MONITORING -- do not chart) 1 each PRN DAILY PRN MC SEE COMMENTS; Start 05/12/20 at 08:30 Info (Anti-Coagulation Monitoring By Pharmacy) 1 each PRN DAILY PRN MC SEE COMMENTS; Start 05/12/20 at 09:15; Stop 05/13/20 at 13:35; Status DC Iohexol (Omnipaque 350 Mg/ml) 100 ml 1X ONCE IV Last administered on 05/12/20at 15:45; Start 05/12/20 at 11:45; Stop 05/12/20 at 11:46; Status DC Info (CONTRAST GIVEN -- Rx MONITORING) 1 each PRN DAILY PRN MC SEE COMMENTS; Start 05/12/20 at 11:45; Stop 05/14/20 at 11:44; Status DC Insulin Human Lispro (HumaLOG) 0-5 UNITS TIDWMEALS SQ Last administered on 05/12/20at 18:16; Start 05/12/20 at 13:00; Stop 05/12/20 at 19:02; Status DC Dextrose (Dextrose 50%-Water Syringe) 12.5 gm PRN Q15MIN PRN IV SEE COMMENTS; Start 05/12/20 at 12:45 Dextrose (Iv Dextrose 5%) 250 ml PRN Q15MIN PRN IV SEE COMMENTS; Start 05/12/20 at 12:45 Insulin Human Lispro (HumaLOG) 0-5 UNITS Q6HRS SQ Last administered on 05/15/20at 06:12; Start 05/13/20 at 00:00 Labetalol HCl (Normodyne Iv Push) 10 mg PRN Q4HRS PRN IVP HYPERTENSION Last administered on 05/14/20at 09:03; Start 05/13/20 at 12:00 Sodium Chloride 1,000 ml @ 1,000 mls/hr Q1H PRN IV hypotension; Start 05/13/20 at 12:00; Stop 05/13/20 at 19:00; Status DC Sodium Chloride 1,000 ml @ 400 mls/hr Q2H30M PRN IV PATENCY; Start 05/13/20 at 12:00; Stop 05/13/20 at 19:00; Status DC Info (PHARMACY MONITORING -- do not chart) 1 each PRN DAILY PRN MC SEE COMMENTS; Start 05/13/20 at 12:00; Status UNV Info (PHARMACY MONITORING -- do not chart) 1 each PRN DAILY PRN MC SEE COMMENTS; Start 05/13/20 at 12:00; Status UNV Heparin Sodium (Porcine) (Heparin Sodium) 5,000 unit Q12HR SQ Last administered on 05/14/20at 21:11; Start 05/13/20 at 21:00 Amlodipine Besylate (Norvasc) 10 mg DAILY PO Last administered on 05/14/20at 11:46; Start 05/14/20 at 12:00 Hydralazine HCl (Apresoline Inj) 25 mg TID IVP Last administered on 05/14/20at 11:47; Start 05/14/20 at 12:00 Furosemide (Lasix) 80 mg 1X ONCE IVP Last administered on 05/14/20at 12:03; Start 05/14/20 at 12:00; Stop 05/14/20 at 12:01; Status DC Active Scripts Active Reported [amlodipine benazep] Unknown Dose PO Proventil Hfa (Albuterol Sulfate) 6.7 Gm Hfa.aer.ad 1 Puff INH PRN Q6HRS PRN Advair 100-50 Diskus (Fluticasone/Salmeterol) 1 Each Disk.w.dev 1 Puff IH BID Vitals/I & O Vital Sign - Last 24 Hours 05/14/20 05/14/20 05/14/20 05/14/20 09:20 10:00 11:00 11:46 Pulse 70 71 95 95 Resp 22 18 18 B/P (MAP) 175/93 (120) 161/85 (110) 176/104 (128) 176/104 Pulse Ox 94 95 94 O2 Delivery Ventilator Ventilator Ventilator 05/14/20 05/14/20 05/14/20 05/14/20 11:47 11:54 12:00 12:00 Temp 98.1 98.1 Pulse 95 106 Resp 23 B/P (MAP) 176/104 175/87 (116) Pulse Ox 98 96 O2 Delivery Ventilator Mechanical Ventilator Ventilator 05/14/20 05/14/20 05/14/20 05/14/20 13:00 14:00 15:00 15:46 Pulse 104 107 107 Resp 19 24 22 B/P (MAP) 150/76 (100) 115/71 (86) 120/68 (85) Pulse Ox 94 94 94 O2 Delivery Ventilator Ventilator Ventilator Mechanical Ventilator 05/14/20 05/14/20 05/14/20 05/14/20 16:00 16:00 16:32 17:00 Temp 98.8 98.8 Pulse 109 95 Resp 31 21 B/P (MAP) 144/82 (102) 133/73 (93) Pulse Ox 93 94 92 O2 Delivery Ventilator Ventilator Ventilator Ventilator 05/14/20 05/14/20 05/14/20 05/14/20 18:00 18:00 19:00 20:00 Temp 99.2 99.2 Pulse 92 90 90 Resp 18 18 20 B/P (MAP) 85/43 (57) 101/54 (70) 104/56 (72) Pulse Ox 92 93 93 95 O2 Delivery Ventilator Ventilator Ventilator Ventilator 05/14/20 05/14/20 05/14/20 05/14/20 20:00 20:31 21:00 22:00 Temp 99.3 99.3 Pulse 95 92 Resp 18 22 B/P (MAP) 114/63 (80) 108/66 (80) Pulse Ox 95 96 96 O2 Delivery Mechanical Ventilator Ventilator Ventilator Ventilator 05/14/20 05/14/20 05/14/20 05/15/20 23:00 23:00 23:59 00:00 Temp 98.8 98.8 Pulse 84 84 82 Resp 18 20 B/P (MAP) 97/52 97/52 (67) 100/54 (69) Pulse Ox 94 95 O2 Delivery Ventilator Mechanical Ventilator Ventilator 05/15/20 05/15/20 05/15/20 05/15/20 00:32 01:00 02:00 03:00 Pulse 94 94 92 Resp 18 18 18 B/P (MAP) 153/87 (109) 127/83 (98) 143/87 (105) Pulse Ox 95 95 96 97 O2 Delivery Ventilator Ventilator Ventilator Ventilator 05/15/20 05/15/20 05/15/20 05/15/20 04:00 04:00 04:20 04:29 Temp 98.9 98.9 Pulse 96 Resp 18 24 B/P (MAP) 159/97 (117) Pulse Ox 97 95 O2 Delivery Ventilator Mechanical Ventilator Ventilator Ventilator 05/15/20 05/15/20 05/15/20 05/15/20 04:50 05:00 06:00 07:00 Pulse 86 80 77 Resp 18 18 22 18 B/P (MAP) 141/83 (102) 104/66 (79) 113/68 (83) Pulse Ox 97 97 97 96 O2 Delivery Ventilator Ventilator Ventilator Ventilator 05/15/20 07:30 Pulse Ox 97 O2 Delivery Ventilator Intake and Output 05/14/20 05/14/20 05/15/20 15:00 23:00 07:00 Intake Total 340 ml 2405 ml 2353 ml Output Total 2020 ml 2045 ml 1030 ml Balance -1680 ml 360 ml 1323 ml CLARK MCMANUS MD May 15, 2020 09:18
[2020-05-15] MEDS: PANTOPRAZOLE IV PUSH 40 MG VIAL. IVP SCH (10:00)
[2020-05-15] MEDS: hydrALAZINE 20 MG/ML VIAL. IVP SCH ×3 (10:04→21:00)
[2020-05-15] MEDS: amLODIPine BESYLATE 10 MG TABLET PO SCH (10:05)
[2020-05-15] MEDS: ASPIRIN CHEWABLE 81 MG TABLET. PO SCH (10:05)
[2020-05-15] MEDS: CHLORHEXIDINE 0.12% 15 ML MOUTHWASH. MM SCH ×2 (10:05→20:22)
[2020-05-15] MEDS: HEPARIN for SUB-Q USE 5,000 UNIT/ML VIAL. SQ SCH ×2 (10:06→21:27)
--- NOTE | 2020-05-15 10:24 | PDOC ---
CARDIOLOGY PROGRESS NOTE SUBJECTIVE: No new events overnight. Still intubated. No HD over the weekend. UOP improving per nursing staff. Fio2 requirements coming down. OBJECTIVE: Vital Signs/I&O: Vital Signs Date Time Temp Pulse Resp B/P (MAP) Pulse Ox O2 Delivery O2 Flow Rate FiO2 05/15/20 10:05 108/62 05/15/20 10:04 81 05/15/20 07:30 97 Ventilator 05/15/20 07:00 18 05/15/20 04:00 98.9 98.9 I & O 05/14/20 05/14/20 05/15/20 15:00 23:00 07:00 Intake Total 340 ml 2405 ml 2353 ml Output Total 2020 ml 2045 ml 1030 ml Balance -1680 ml 360 ml 1323 ml Objective: Sedated, intubated. Non-responsive. Mild anasarca Normal heart tones. Soft abdomen HD cath site ok. Lungs clear anteriorly. CURRENT MEDICATIONS: amlodipine, asa, hydralazine iV prn. DIAGNOSTIC TESTING: Labs reviewed. Cr 1.7 Tele unremarkable. ASSESSMENT: 1. Acute on chronic respiratory failure - Multifactorial 2. EVY improving. 3. NSTEMI 4. Cocaine abuse 5. HTN PLAN: 1. Given hemodynamic stability, improving O2 requirements, and recent EVY, will defer any further aggressive invasive cardiac assessment. Continue supportive care. Will follow along. Thanks Justicifation of Admission Dx: Justifications for Admission: Justification of Admission Dx: Yes CHF: Hemodynamic Instability Respiratory Failure: Mechanical Ventilation Acute COPD Exacerbation: Acute COPD Exacerbation Altered Mental Status: Altered Mental Status TINY MARSHALL MD May 15, 2020 10:24
--- NOTE | 2020-05-15 10:28 | NUR ---
SS following up with discharge planning. SS reviewed pt chart and discussed with pt RN. Pt remains on the vent at this time. Per RN, pt required no HD over the weekend, pt's urine output improving, and pt's Fio2 requirements are decreasing. Pt visiting from [place], [place] and does not live in [place]. Pt was denied for transfer at [facility] and . SS will continue to follow for discharge planning.
--- NOTE | 2020-05-15 10:58 | PDOC ---
SUBJECTIVE ROS Intubated , sister at bedside OBJECTIVE Vital Signs Vital Signs Date Time Temp Pulse Resp B/P (MAP) Pulse Ox O2 Delivery O2 Flow Rate FiO2 05/15/20 10:05 108/62 05/15/20 10:04 81 05/15/20 07:30 97 Ventilator 05/15/20 07:00 18 05/15/20 04:00 98.9 98.9 I & 0 Intake and Output 05/15/20 07:00 Intake Total 5098 ml Output Total 5095 ml Balance 3 ml IV Total 2077 ml Tube Feeding 1904 ml Other 1117 ml Output Urine Total 5095 ml Gastric Drainage Total 0 ml PHYSICAL EXAM Physical Exam General : no apparent distress, Intubated HEENT-Intubated Neck supple Resp- decreased at bases Heart S1S2 Skin: warm, no rash Abdomen: soft, bowel sounds present Genitourinary: townsend + Extremities: No LE edema Neurology: sedated DIAGNOSIS/ASSESSMENT Assessment & Plan EVY - ATN , required HD, last HD was on 05/12 Improving renal function and UOP E-Lytes , acid base stable, Currently no indication for HD Supportive care, avoid nephrotoxins HyperKalemia- Resolved CKD - Echogenic appearing bilateral kidneys probably medical renal disease., worse No evidence of hydronephrosis. Acute Hypoxic /Hypercapnic Resp Failure- Intubated on MV COVID-19 virus infection negative 05/09 NSTEMI (non-ST elevated myocardial infarction) Cocaine Abuse-at presentation Morbid obesity ? Adrenal mass COMMENT/RELEVANT DATA Meds Current Medications Medications (Trade) Dose Ordered Sig/Dario Start Time Stop Time Status Last Admin Dose Admin Acetaminophen (Tylenol Supp) 650 mg PRN Q4HRS PRN 05/08/20 16:15 Albumin Human 200 ml @ 200 mls/hr 1X PRN PRN 05/12/20 08:30 05/12/20 14:29 DC Albuterol Sulfate (Ventolin Neb Soln) 2.5 mg PRN Q4HRS PRN 05/08/20 19:00 Albuterol/ Ipratropium (Duoneb) 3 ml Q4H 05/08/20 16:15 05/08/20 18:45 DC Amlodipine Besylate (Norvasc) 10 mg DAILY 05/14/20 12:00 05/15/20 10:05 10 MG Aspirin (Aspirin Chewable) 81 mg DAILYWBKFT 05/09/20 08:00 05/15/20 10:05 81 MG Aspirin (Aspirin Rectal Supp) 300 mg 1X ONCE 05/08/20 08:45 05/08/20 09:04 DC 05/08/20 10:00 300 MG Ceftriaxone Sodium (Rocephin) 1 gm Q24H 05/09/20 08:00 05/14/20 08:52 1 GM Chlorhexidine Gluconate (Peridex) 15 ml BID 05/08/20 09:00 05/15/20 10:05 15 ML Clonidine HCl (Catapres) 0.1 mg PRN Q2HR PRN 05/09/20 14:30 05/13/20 11:34 DC 05/13/20 10:18 0.1 MG Dextrose (Dextrose 50%-Water Syringe) 12.5 gm PRN Q15MIN PRN 05/12/20 12:45 Dextrose (Iv Dextrose 5%) 250 ml PRN Q15MIN PRN 05/12/20 12:45 Enoxaparin Sodium (Lovenox 120mg Syringe) 120 mg DAILY 05/10/20 10:00 05/10/20 10:48 DC 05/10/20 10:19 120 MG Enoxaparin Sodium (Lovenox 40mg Syringe) 40 mg Q24H 05/08/20 17:00 05/10/20 09:14 DC 05/09/20 17:04 40 MG Enoxaparin Sodium (Lovenox Per Pharmacy Prophylaxis Dosing) 1 each PRN DAILY PRN 05/08/20 16:00 05/10/20 09:14 DC Enoxaparin Sodium (Lovenox Per Pharmacy Treatment Dosing) 1 each PRN DAILY PRN 05/10/20 09:30 Cancel Etomidate (Amidate) 40 mg 1X ONCE 05/08/20 07:55 05/08/20 12:05 DC 05/08/20 07:57 40 MG Fentanyl Citrate 30 ml @ 0 mls/hr CONT PRN 05/08/20 08:15 05/15/20 04:20 2.5 MLS/HR Fentanyl Citrate (Fentanyl 2ml Vial) 50 mcg PRN Q1HR PRN 05/08/20 07:45 05/08/20 12:44 50 MCG Furosemide (Lasix) 80 mg 1X ONCE 05/14/20 12:00 05/14/20 12:01 DC 05/14/20 12:03 80 MG Heparin Sodium (Porcine) (Heparin Sodium) 5,000 unit Q12HR 05/13/20 21:00 05/15/20 10:06 5,000 UNIT Heparin Sodium/ Dextrose 250 ml @ 10 mls/hr CONT PRN 05/10/20 11:00 05/13/20 13:35 DC 05/11/20 20:59 10 MLS/HR Hydralazine HCl (Apresoline Inj) 25 mg TID 05/14/20 12:00 05/15/20 10:04 25 MG Info (Anti-Coagulation Monitoring By Pharmacy) 1 each PRN DAILY PRN 05/12/20 09:15 05/13/20 13:35 DC Info (CONTRAST GIVEN -- Rx MONITORING) 1 each PRN DAILY PRN 05/12/20 11:45 05/14/20 11:44 DC Info (PHARMACY MONITORING -- do not chart) 1 each PRN DAILY PRN 05/13/20 12:00 UNV Insulin Human Lispro (HumaLOG) 0-5 UNITS Q6HRS 05/13/20 00:00 05/15/20 06:12 3 UNITS Iohexol (Omnipaque 350 Mg/ml) 100 ml 1X ONCE 05/12/20 11:45 05/12/20 11:46 DC 05/12/20 15:45 100 ML Labetalol HCl (Normodyne Iv Push) 10 mg PRN Q4HRS PRN 05/13/20 12:00 05/14/20 09:03 10 MG Lidocaine HCl (Buffered Lidocaine 1%) 6 ml 1X ONCE 05/11/20 14:00 05/11/20 14:01 DC 05/11/20 13:50 3 ML Methylprednisolone Sodium Succinate (SOLU-Medrol 125MG VIAL) 60 mg Q8HRS 05/08/20 14:00 05/15/20 06:08 60 MG Midazolam HCl (Versed) 5 mg PRN Q15MIN PRN 05/08/20 08:00 05/08/20 12:32 5 MG Ondansetron HCl (Zofran) 4 mg PRN Q4HRS PRN 05/08/20 16:15 Pantoprazole Sodium (PROTONIX VIAL for IV PUSH) 40 mg DAILYAC 05/08/20 11:30 05/15/20 10:00 40 MG Polyethylene Glycol (miraLAX PACKET) 17 gm PRN DAILY PRN 05/10/20 16:00 05/11/20 11:20 17 GM Propofol (Diprivan) 40 mg 1X ONCE 05/08/20 08:00 05/08/20 09:04 DC Sodium Monofluorophosphate (Fleet Adult) 133 ml PRN DAILY PRN 05/08/20 16:15 Sodium Chloride 1,000 ml @ 400 mls/hr Q2H30M PRN 05/13/20 12:00 05/13/20 19:00 DC Sodium Chloride (Normal Saline Flush) 10 ml 1X PRN PRN 05/12/20 08:30 05/13/20 08:29 DC Succinylcholine Chloride (Anectine) 100 mg 1X ONCE 05/08/20 07:45 05/08/20 09:04 DC 05/08/20 07:31 100 MG Lab Laboratory Tests Test 05/14/20 11:59 05/14/20 17:20 05/15/20 00:35 05/15/20 06:00 Glucose (Fingerstick) 259 mg/dL (70-99) 250 mg/dL (70-99) 208 mg/dL (70-99) Sodium Level 140 mmol/L (136-145) Potassium Level 4.4 mmol/L (3.5-5.1) Chloride Level 103 mmol/L (98-107) Carbon Dioxide Level 31 mmol/L (21-32) Anion Gap 6 (6-14) Blood Urea Nitrogen 42 mg/dL (8-26) Creatinine 1.7 mg/dL (0.7-1.3) Estimated GFR (Cockcroft-Gault) 50.7 Glucose Level 230 mg/dL (70-99) Calcium Level 7.9 mg/dL (8.5-10.1) Phosphorus Level 5.5 mg/dL (2.6-4.7) Magnesium Level 2.0 mg/dL (1.8-2.4) Test 05/15/20 06:10 05/15/20 07:30 Glucose (Fingerstick) 212 mg/dL (70-99) O2 Saturation 94 % (92-99) Arterial Blood pH 7.34 (7.35-7.45) Arterial Blood pCO2 at Patient Temp 44 mmHg (35-46) Arterial Blood pO2 at Patient Temp 80 mmHg (75-108) Arterial Blood HCO3 23 mmol/L (21-28) Arterial Blood Base Excess -3 mmol/L (-3-3) FiO2 60 Results All relevant outside records, renal labs, imaging studies, telemetry/EKG's were reviewed. Justicifation of Admission Dx: Justifications for Admission: Justification of Admission Dx: Yes CHF: Hemodynamic Instability Respiratory Failure: Mechanical Ventilation Acute COPD Exacerbation: Acute COPD Exacerbation Altered Mental Status: Altered Mental Status ISMAEL BOOTH MD May 15, 2020 10:58
[2020-05-15] MEDS: cefTRIAXone IV Push 1 GM VIAL. IVP SCH (11:16)
--- NOTE | 2020-05-15 12:21 | PDOC ---
PULMONARY PROGRESS NOTES Subjective Patient is on assist control ventilation, some abdominal breathing no overnight concerns from nursing Vitals Vital Signs Date Time Temp Pulse Resp B/P (MAP) Pulse Ox O2 Delivery O2 Flow Rate FiO2 05/15/20 11:19 95 Ventilator 05/15/20 10:05 108/62 05/15/20 10:04 81 05/15/20 07:00 18 05/15/20 04:00 98.9 98.9 Comments intubated/sedated Lungs: Other (decrease bs) Cardiovascular: S1 Abdomen: Soft, Other (obese) Extremities: Other (BLE +1) Skin: Warm, Dry Labs Laboratory Tests Test 05/13/20 12:44 05/13/20 17:07 05/14/20 00:11 05/14/20 05:58 Glucose (Fingerstick) 216 mg/dL (70-99) 177 mg/dL (70-99) 227 mg/dL (70-99) 227 mg/dL (70-99) Test 05/14/20 06:00 05/14/20 07:45 05/14/20 11:59 05/14/20 17:20 Sodium Level 138 mmol/L (136-145) Potassium Level 4.2 mmol/L (3.5-5.1) Chloride Level 103 mmol/L (98-107) Carbon Dioxide Level 30 mmol/L (21-32) Anion Gap 5 (6-14) Blood Urea Nitrogen 36 mg/dL (8-26) Creatinine 1.8 mg/dL (0.7-1.3) Estimated GFR (Cockcroft-Gault) 47.5 Glucose Level 235 mg/dL (70-99) Calcium Level 7.9 mg/dL (8.5-10.1) O2 Saturation 94 % (92-99) Arterial Blood pH 7.47 (7.35-7.45) Arterial Blood pCO2 at Patient Temp 33 mmHg (35-46) Arterial Blood pO2 at Patient Temp 73 mmHg (75-108) Arterial Blood HCO3 23 mmol/L (21-28) Arterial Blood Base Excess 0 mmol/L (-3-3) FiO2 60 Glucose (Fingerstick) 259 mg/dL (70-99) 250 mg/dL (70-99) Test 05/15/20 00:35 05/15/20 06:00 05/15/20 06:10 05/15/20 07:30 Glucose (Fingerstick) 208 mg/dL (70-99) 212 mg/dL (70-99) Sodium Level 140 mmol/L (136-145) Potassium Level 4.4 mmol/L (3.5-5.1) Chloride Level 103 mmol/L (98-107) Carbon Dioxide Level 31 mmol/L (21-32) Anion Gap 6 (6-14) Blood Urea Nitrogen 42 mg/dL (8-26) Creatinine 1.7 mg/dL (0.7-1.3) Estimated GFR (Cockcroft-Gault) 50.7 Glucose Level 230 mg/dL (70-99) Calcium Level 7.9 mg/dL (8.5-10.1) Phosphorus Level 5.5 mg/dL (2.6-4.7) Magnesium Level 2.0 mg/dL (1.8-2.4) O2 Saturation 94 % (92-99) Arterial Blood pH 7.34 (7.35-7.45) Arterial Blood pCO2 at Patient Temp 44 mmHg (35-46) Arterial Blood pO2 at Patient Temp 80 mmHg (75-108) Arterial Blood HCO3 23 mmol/L (21-28) Arterial Blood Base Excess -3 mmol/L (-3-3) FiO2 60 Laboratory Tests Test 05/14/20 17:20 05/15/20 00:35 05/15/20 06:00 05/15/20 06:10 Glucose (Fingerstick) 250 mg/dL (70-99) 208 mg/dL (70-99) 212 mg/dL (70-99) Sodium Level 140 mmol/L (136-145) Potassium Level 4.4 mmol/L (3.5-5.1) Chloride Level 103 mmol/L (98-107) Carbon Dioxide Level 31 mmol/L (21-32) Anion Gap 6 (6-14) Blood Urea Nitrogen 42 mg/dL (8-26) Creatinine 1.7 mg/dL (0.7-1.3) Estimated GFR (Cockcroft-Gault) 50.7 Glucose Level 230 mg/dL (70-99) Calcium Level 7.9 mg/dL (8.5-10.1) Phosphorus Level 5.5 mg/dL (2.6-4.7) Magnesium Level 2.0 mg/dL (1.8-2.4) Test 05/15/20 07:30 O2 Saturation 94 % (92-99) Arterial Blood pH 7.34 (7.35-7.45) Arterial Blood pCO2 at Patient Temp 44 mmHg (35-46) Arterial Blood pO2 at Patient Temp 80 mmHg (75-108) Arterial Blood HCO3 23 mmol/L (21-28) Arterial Blood Base Excess -3 mmol/L (-3-3) FiO2 60 Medications Active Scripts Medications Dose Route/Sig Max Daily Dose Days Date Category [amlodipine benazep] Unknown Dose PO 05/08/20 Reported Proventil Hfa (Albuterol Sulfate) 6.7 Gm Hfa.aer.ad 1 Puff INH PRN Q6HRS PRN 05/08/20 Reported Advair 100-50 Diskus (Fluticasone/Salmeterol) 1 Each Disk.w.dev 1 Puff IH BID 05/08/20 Reported Comments CXR 05/14/2020 IMPRESSION: 1. Persistent pleural effusions with basilar atelectasis or infiltrates. 2. Tubes and lines unchanged. CTA chest IMPRESSION: 1. No evidence for acute pulmonary embolus the level of the subsegmental branches. More peripheral vessels are not well assessed. 2. Are seen moderate bilateral pleural effusions are seen. 3. Lower atelectasis of the lower lobes and atelectasis of the middle lobe without obvious obstructing mass, etiology is uncertain. Of note there may be small hilar lymph nodes bilaterally that are secured by the pleural effusions and hilar infiltration. Consider further evaluation with bronchoscopy or short interval follow-up CT following resolution of the acute process to further delineate. 4. Indeterminate right adrenal nodule can be correlated with prior imaging is available otherwise close attention on follow-up is recommended. Impression . 1. Acute hypoxic and hypercapnic respiratory failure secondary to multi factorial etiologies including suspected chronic obstructive pulmonary disease with acute exacerbation, non-ST myocardial infarction, and cocaine overdose. 2. Underlying chronic obstructive pulmonary disease, clinically suspected. 3. Abnormal chest x-ray with prominent interstitial markings, probably related to mild interstitial edema.improved 4. Abnormal troponin consistent with non-ST myocardial infarction./? RV infarction 5. Acute kidney injury-- improving 6. Abnormal LFTs. Could be related to hypoperfusion. 7. Urine drug screen positive for cocaine. 8. CT chest neg for PE 9. Arslan atelectasis CT chest IMPRESSION: 1. No evidence for acute pulmonary embolus the level of the subsegmental branches. More peripheral vessels are not well assessed. 2. Are seen moderate bilateral pleural effusions are seen. 3. Lower atelectasis of the lower lobes and atelectasis of the middle lobe without obvious obstructing mass, etiology is uncertain. Of note there may be small hilar lymph nodes bilaterally that are secured by the pleural effusions and hilar infiltration. Consider further evaluation with bronchoscopy or short interval follow-up CT following resolution of the acute process to further delineate. 4. Indeterminate right adrenal nodule can be correlated with prior imaging is available otherwise close attention on follow-up is recommended. Plan . ABG noted, some paradoxical breathing, not ready for trial, spoke with son yesterday at the bedside Appreciate nephrology and cardiology input CTA reviewed-- will repeat CT in 2 months cont. IV steroids Cont. ABX Follow cardiology input Continue TF for nutritional support Discussed with RT and RN Total cumulative critical care time of 30 minutes, reviewing data, labs, chest x-ray, and formulating a plan TOÑA WAGONER MD May 15, 2020 12:21
[2020-05-16] VITALS (24 sets, daily range): BP systolic 94–198; BP diastolic 42–121
[2020-05-16] MEDS: INSULIN LISPRO 300 UNITS/3 ML VIAL. SQ SCH ×4 (00:43→17:40)
[2020-05-16] MEDS: PROPOFOL 100 ML IV PRN ×8 (00:54→21:39)
[2020-05-16] MEDS: IV NORMAL SALINE 1000ML BAG 1,000 ML IV SCH ×2 (03:18→23:47)
[2020-05-16] MEDS: methylPREDNISolone SOD SUCC PF 125 MG/2 ML VIAL. IV SCH ×3 (06:23→22:24)
[2020-05-16 06:29] LABS: BASO % 0 % (0-3); EOS % 0 % (0-3); HEMATOCRIT 43.5 % (39.0-53.0); HEMOGLOBIN 13.6 g/dL (13.0-17.5); LYMPH # 0.2 x10^3/uL (1.0-4.8); LYMPH % 3 % (24-48); MEAN CORPUSCULAR HEMOGLOBIN 23 pg (25-35); MEAN CORPUSCULAR HGB CONC 31 g/dL (31-37); MEAN CORPUSCULAR VOLUME 75 fL (79-100); MONO # 0.4 x10^3/uL (0.0-1.1); MONO % 5 % (0-9); NEUT # 8.2 x10^3/uL (1.8-7.7); NEUT % 92 % (31-73); PLATELET COUNT 141 x10^3/uL (140-400); WHITE BLOOD COUNT 8.9 x10^3/uL (4.0-11.0)
[2020-05-16 06:48] LABS: ALBUMIN 2.2 g/dL (3.4-5.0); ALBUMIN/GLOBULIN RATIO 0.8 (1.0-1.7); CALCIUM 8.3 mg/dL (8.5-10.1); CREATININE 1.4 mg/dL (0.7-1.3); GFR 63.4; POTASSIUM 4.8 mmol/L (3.5-5.1); TOTAL BILIRUBIN 0.4 mg/dL (0.2-1.0)
[2020-05-16] MEDS: PANTOPRAZOLE IV PUSH 40 MG VIAL. IVP SCH (07:41)
[2020-05-16] MEDS: ASPIRIN CHEWABLE 81 MG TABLET. PO SCH (07:42)
[2020-05-16] MEDS: hydrALAZINE 20 MG/ML VIAL. IVP SCH (07:42)
[2020-05-16] MEDS: amLODIPine BESYLATE 10 MG TABLET PO SCH (07:42)
[2020-05-16] MEDS: cefTRIAXone IV Push 1 GM VIAL. IVP SCH (07:46)
[2020-05-16] MEDS: CHLORHEXIDINE 0.12% 15 ML MOUTHWASH. MM SCH ×2 (08:04→20:05)
[2020-05-16] MEDS: HEPARIN for SUB-Q USE 5,000 UNIT/ML VIAL. SQ SCH ×2 (08:07→21:04)
--- NOTE | 2020-05-16 08:09 | PDOC ---
PULMONARY PROGRESS NOTES Subjective Patient is on assist control ventilation, some abdominal breathing no overnight concerns from nursing Vitals Vital Signs Date Time Temp Pulse Resp B/P (MAP) Pulse Ox O2 Delivery O2 Flow Rate FiO2 05/16/20 07:55 97 Ventilator 05/16/20 07:42 182/104 05/16/20 07:00 95 20 05/16/20 04:00 98.9 98.9 05/15/20 15:09 15.0 Comments intubated/sedated Lungs: Other (decrease bs) Cardiovascular: S1 Abdomen: Soft, Other (obese) Extremities: Other (BLE +1) Skin: Warm, Dry Labs Laboratory Tests Test 05/14/20 11:59 05/14/20 17:20 05/15/20 00:35 05/15/20 06:00 Glucose (Fingerstick) 259 mg/dL (70-99) 250 mg/dL (70-99) 208 mg/dL (70-99) Sodium Level 140 mmol/L (136-145) Potassium Level 4.4 mmol/L (3.5-5.1) Chloride Level 103 mmol/L (98-107) Carbon Dioxide Level 31 mmol/L (21-32) Anion Gap 6 (6-14) Blood Urea Nitrogen 42 mg/dL (8-26) Creatinine 1.7 mg/dL (0.7-1.3) Estimated GFR (Cockcroft-Gault) 50.7 Glucose Level 230 mg/dL (70-99) Calcium Level 7.9 mg/dL (8.5-10.1) Phosphorus Level 5.5 mg/dL (2.6-4.7) Magnesium Level 2.0 mg/dL (1.8-2.4) Hepatitis B Core Total Antibody Nonreactive (Nonreactive) Test 05/15/20 06:10 05/15/20 07:30 05/15/20 13:52 05/16/20 00:38 Glucose (Fingerstick) 212 mg/dL (70-99) 240 mg/dL (70-99) 201 mg/dL (70-99) O2 Saturation 94 % (92-99) Arterial Blood pH 7.34 (7.35-7.45) Arterial Blood pCO2 at Patient Temp 44 mmHg (35-46) Arterial Blood pO2 at Patient Temp 80 mmHg (75-108) Arterial Blood HCO3 23 mmol/L (21-28) Arterial Blood Base Excess -3 mmol/L (-3-3) FiO2 60 Test 05/16/20 06:10 05/16/20 06:18 White Blood Count 8.9 x10^3/uL (4.0-11.0) Red Blood Count 5.80 x10^6/uL (4.30-5.70) Hemoglobin 13.6 g/dL (13.0-17.5) Hematocrit 43.5 % (39.0-53.0) Mean Corpuscular Volume 75 fL (79-100) Mean Corpuscular Hemoglobin 23 pg (25-35) Mean Corpuscular Hemoglobin Concent 31 g/dL (31-37) Red Cell Distribution Width 17.0 % (11.5-14.5) Platelet Count 141 x10^3/uL (140-400) Neutrophils (%) (Auto) 92 % (31-73) Lymphocytes (%) (Auto) 3 % (24-48) Monocytes (%) (Auto) 5 % (0-9) Eosinophils (%) (Auto) 0 % (0-3) Basophils (%) (Auto) 0 % (0-3) Neutrophils # (Auto) 8.2 x10^3/uL (1.8-7.7) Lymphocytes # (Auto) 0.2 x10^3/uL (1.0-4.8) Monocytes # (Auto) 0.4 x10^3/uL (0.0-1.1) Eosinophils # (Auto) 0.0 x10^3/uL (0.0-0.7) Basophils # (Auto) 0.0 x10^3/uL (0.0-0.2) Sodium Level 140 mmol/L (136-145) Potassium Level 4.8 mmol/L (3.5-5.1) Chloride Level 104 mmol/L (98-107) Carbon Dioxide Level 31 mmol/L (21-32) Anion Gap 5 (6-14) Blood Urea Nitrogen 41 mg/dL (8-26) Creatinine 1.4 mg/dL (0.7-1.3) Estimated GFR (Cockcroft-Gault) 63.4 BUN/Creatinine Ratio 29 (6-20) Glucose Level 233 mg/dL (70-99) Calcium Level 8.3 mg/dL (8.5-10.1) Total Bilirubin 0.4 mg/dL (0.2-1.0) Aspartate Amino Transf (AST/SGOT) 7 U/L (15-37) Alanine Aminotransferase (ALT/SGPT) 23 U/L (16-63) Alkaline Phosphatase 39 U/L (46-116) Total Protein 5.0 g/dL (6.4-8.2) Albumin 2.2 g/dL (3.4-5.0) Albumin/Globulin Ratio 0.8 (1.0-1.7) Glucose (Fingerstick) 217 mg/dL (70-99) Laboratory Tests Test 05/15/20 13:52 05/16/20 00:38 05/16/20 06:10 05/16/20 06:18 Glucose (Fingerstick) 240 mg/dL (70-99) 201 mg/dL (70-99) 217 mg/dL (70-99) White Blood Count 8.9 x10^3/uL (4.0-11.0) Red Blood Count 5.80 x10^6/uL (4.30-5.70) Hemoglobin 13.6 g/dL (13.0-17.5) Hematocrit 43.5 % (39.0-53.0) Mean Corpuscular Volume 75 fL (79-100) Mean Corpuscular Hemoglobin 23 pg (25-35) Mean Corpuscular Hemoglobin Concent 31 g/dL (31-37) Red Cell Distribution Width 17.0 % (11.5-14.5) Platelet Count 141 x10^3/uL (140-400) Neutrophils (%) (Auto) 92 % (31-73) Lymphocytes (%) (Auto) 3 % (24-48) Monocytes (%) (Auto) 5 % (0-9) Eosinophils (%) (Auto) 0 % (0-3) Basophils (%) (Auto) 0 % (0-3) Neutrophils # (Auto) 8.2 x10^3/uL (1.8-7.7) Lymphocytes # (Auto) 0.2 x10^3/uL (1.0-4.8) Monocytes # (Auto) 0.4 x10^3/uL (0.0-1.1) Eosinophils # (Auto) 0.0 x10^3/uL (0.0-0.7) Basophils # (Auto) 0.0 x10^3/uL (0.0-0.2) Sodium Level 140 mmol/L (136-145) Potassium Level 4.8 mmol/L (3.5-5.1) Chloride Level 104 mmol/L (98-107) Carbon Dioxide Level 31 mmol/L (21-32) Anion Gap 5 (6-14) Blood Urea Nitrogen 41 mg/dL (8-26) Creatinine 1.4 mg/dL (0.7-1.3) Estimated GFR (Cockcroft-Gault) 63.4 BUN/Creatinine Ratio 29 (6-20) Glucose Level 233 mg/dL (70-99) Calcium Level 8.3 mg/dL (8.5-10.1) Total Bilirubin 0.4 mg/dL (0.2-1.0) Aspartate Amino Transf (AST/SGOT) 7 U/L (15-37) Alanine Aminotransferase (ALT/SGPT) 23 U/L (16-63) Alkaline Phosphatase 39 U/L (46-116) Total Protein 5.0 g/dL (6.4-8.2) Albumin 2.2 g/dL (3.4-5.0) Albumin/Globulin Ratio 0.8 (1.0-1.7) Medications Active Scripts Medications Dose Route/Sig Max Daily Dose Days Date Category [amlodipine benazep] Unknown Dose PO 05/08/20 Reported Proventil Hfa (Albuterol Sulfate) 6.7 Gm Hfa.aer.ad 1 Puff INH PRN Q6HRS PRN 05/08/20 Reported Advair 100-50 Diskus (Fluticasone/Salmeterol) 1 Each Disk.w.dev 1 Puff IH BID 05/08/20 Reported Comments CXR 05/14/2020 IMPRESSION: 1. Persistent pleural effusions with basilar atelectasis or infiltrates. 2. Tubes and lines unchanged. CTA chest IMPRESSION: 1. No evidence for acute pulmonary embolus the level of the subsegmental branches. More peripheral vessels are not well assessed. 2. Are seen moderate bilateral pleural effusions are seen. 3. Lower atelectasis of the lower lobes and atelectasis of the middle lobe without obvious obstructing mass, etiology is uncertain. Of note there may be small hilar lymph nodes bilaterally that are secured by the pleural effusions and hilar infiltration. Consider further evaluation with bronchoscopy or short interval follow-up CT following resolution of the acute process to further delineate. 4. Indeterminate right adrenal nodule can be correlated with prior imaging is available otherwise close attention on follow-up is recommended. Impression . 1. Acute hypoxic and hypercapnic respiratory failure secondary to multifactorial etiologies including suspected chronic obstructive pulmonary disease with acute exacerbation, non-ST myocardial infarction, and cocaine overdose. 2. Underlying chronic obstructive pulmonary disease, clinically suspected. 3. Abnormal chest x-ray with prominent interstitial markings, probably related to mild interstitial edema.improved 4. Abnormal troponin consistent with non-ST myocardial infarction. 5. Acute kidney injury-- improving 6. Abnormal LFTs. Could be related to hypoperfusion. 7. Urine drug screen positive for cocaine. 8. CT chest neg for PE 9. Arslan atelectasis CT chest IMPRESSION: 1. No evidence for acute pulmonary embolus the level of the subsegmental branches. More peripheral vessels are not well assessed. 2. Are seen moderate bilateral pleural effusions are seen. 3. Lower atelectasis of the lower lobes and atelectasis of the middle lobe without obvious obstructing mass, etiology is uncertain. Of note there may be small hilar lymph nodes bilaterally that are secured by the pleural effusions and hilar infiltration. Consider further evaluation with bronchoscopy or short interval follow-up CT following resolution of the acute process to further delineate. 4. Indeterminate right adrenal nodule can be correlated with prior imaging is available otherwise close attention on follow-up is recommended. Plan . Repeat chest x-ray in the a.m., did not do well on trial today ABG noted, Appreciate nephrology and cardiology input CTA reviewed-- will repeat CT in 2 months cont. IV steroids Cont. ABX Follow cardiology input Continue TF for nutritional support Discussed with RT and RN Discussed with 2 sisters at the bedside Total cumulative critical care time of 30 minutes, reviewing data, labs, chest x-ray, and formulating a plan TOÑA WAGONER MD May 16, 2020 08:09
[2020-05-16 08:10] LABS: BASE EXCESS ABG 2 mmol/L (-3-3); HCO3 ABG 28 mmol/L (21-28); PCO2 ABG 47 mmHg (35-46); PO2 ABG 68 mmHg (75-108); SAT O2 ABG 94 % (92-99)
--- NOTE | 2020-05-16 09:12 | PDOC ---
SUBJECTIVE ROS Intubated OBJECTIVE Vital Signs Vital Signs Date Time Temp Pulse Resp B/P (MAP) Pulse Ox O2 Delivery O2 Flow Rate FiO2 05/16/20 07:55 97 Ventilator 05/16/20 07:42 182/104 05/16/20 07:00 95 20 05/16/20 04:00 98.9 98.9 05/15/20 15:09 15.0 I & 0 Intake and Output 05/16/20 07:00 Intake Total 2629 ml Output Total 3050 ml Balance -421 ml Tube Feeding 1923 ml Other 706 ml Output Urine Total 3050 ml Gastric Drainage Total 0 ml PHYSICAL EXAM Physical Exam General : no apparent distress, Intubated HEENT-Intubated Neck supple Resp- decreased at bases Heart S1S2 Skin: warm, no rash Abdomen: soft, bowel sounds present Genitourinary: townsend + Extremities: No LE edema Neurology: sedated DIAGNOSIS/ASSESSMENT Assessment & Plan EVY - ATN , required HD, last HD was on 05/12 Improving renal function and UOP E-Lytes , acid base stable, Currently no indication for HD Supportive care, avoid nephrotoxins HyperKalemia- Resolved CKD - Echogenic appearing bilateral kidneys probably medical renal disease., worse No evidence of hydronephrosis. Acute Hypoxic /Hypercapnic Resp Failure- Intubated on MV COVID-19 virus infection negative 05/09 NSTEMI (non-ST elevated myocardial infarction) Cocaine Abuse-at presentation Morbid obesity ? Adrenal nodule- defer to primary COMMENT/RELEVANT DATA Meds Current Medications Medications (Trade) Dose Ordered Sig/Dario Start Time Stop Time Status Last Admin Dose Admin Acetaminophen (Tylenol Supp) 650 mg PRN Q4HRS PRN 05/08/20 16:15 Albumin Human 200 ml @ 200 mls/hr 1X PRN PRN 05/12/20 08:30 05/12/20 14:29 DC Albuterol Sulfate (Ventolin Neb Soln) 2.5 mg PRN Q4HRS PRN 05/08/20 19:00 Albuterol/ Ipratropium (Duoneb) 3 ml Q4H 05/08/20 16:15 05/08/20 18:45 DC Amlodipine Besylate (Norvasc) 10 mg DAILY 05/14/20 12:00 05/16/20 07:42 10 MG Aspirin (Aspirin Chewable) 81 mg [id number] 05/09/20 08:00 05/16/20 07:42 81 MG Aspirin (Aspirin Rectal Supp) 300 mg 1X ONCE 05/08/20 08:45 05/08/20 09:04 DC 05/08/20 10:00 300 MG Ceftriaxone Sodium (Rocephin) 1 gm Q24H 05/09/20 08:00 05/16/20 07:46 1 GM Chlorhexidine Gluconate (Peridex) 15 ml BID 05/08/20 09:00 05/16/20 08:04 15 ML Clonidine HCl (Catapres) 0.1 mg PRN Q2HR PRN 05/09/20 14:30 05/13/20 11:34 DC 05/13/20 10:18 0.1 MG Dextrose (Dextrose 50%-Water Syringe) 12.5 gm PRN Q15MIN PRN 05/12/20 12:45 Dextrose (Iv Dextrose 5%) 250 ml PRN Q15MIN PRN 05/12/20 12:45 Enoxaparin Sodium (Lovenox 120mg Syringe) 120 mg DAILY 05/10/20 10:00 05/10/20 10:48 DC 05/10/20 10:19 120 MG Enoxaparin Sodium (Lovenox 40mg Syringe) 40 mg Q24H 05/08/20 17:00 05/10/20 09:14 DC 05/09/20 17:04 40 MG Enoxaparin Sodium (Lovenox Per Pharmacy Prophylaxis Dosing) 1 each PRN DAILY PRN 05/08/20 16:00 05/10/20 09:14 DC Enoxaparin Sodium (Lovenox Per Pharmacy Treatment Dosing) 1 each PRN DAILY PRN 05/10/20 09:30 Cancel Etomidate (Amidate) 40 mg 1X ONCE 05/08/20 07:55 05/08/20 12:05 DC 05/08/20 07:57 40 MG Fentanyl Citrate 30 ml @ 0 mls/hr CONT PRN 05/08/20 08:15 05/16/20 03:20 2.5 MLS/HR Fentanyl Citrate (Fentanyl 2ml Vial) 50 mcg PRN Q1HR PRN 05/08/20 07:45 05/08/20 12:44 50 MCG Furosemide (Lasix) 80 mg 1X ONCE 05/14/20 12:00 05/14/20 12:01 DC 05/14/20 12:03 80 MG Heparin Sodium (Porcine) (Heparin Sodium) 5,000 unit Q12HR 05/13/20 21:00 05/16/20 08:07 5,000 UNIT Heparin Sodium/ Dextrose 250 ml @ 10 mls/hr CONT PRN 05/10/20 11:00 05/13/20 13:35 DC 05/11/20 20:59 10 MLS/HR Hydralazine HCl (Apresoline Inj) 25 mg TID 05/14/20 12:00 05/16/20 07:42 25 MG Info (Anti-Coagulation Monitoring By Pharmacy) 1 each PRN DAILY PRN 05/12/20 09:15 05/13/20 13:35 DC Info (CONTRAST GIVEN -- Rx MONITORING) 1 each PRN DAILY PRN 05/12/20 11:45 05/14/20 11:44 DC Info (PHARMACY MONITORING -- do not chart) 1 each PRN DAILY PRN 05/13/20 12:00 UNV Insulin Human Lispro (HumaLOG) 0-5 UNITS Q6HRS 05/13/20 00:00 05/16/20 06:24 3 UNITS Iohexol (Omnipaque 350 Mg/ml) 100 ml 1X ONCE 05/12/20 11:45 05/12/20 11:46 DC 05/12/20 15:45 100 ML Labetalol HCl (Normodyne Iv Push) 10 mg PRN Q4HRS PRN 05/13/20 12:00 05/14/20 09:03 10 MG Lidocaine HCl (Buffered Lidocaine 1%) 6 ml 1X ONCE 05/11/20 14:00 05/11/20 14:01 DC 05/11/20 13:50 3 ML Methylprednisolone Sodium Succinate (SOLU-Medrol 125MG VIAL) 60 mg Q8HRS 05/08/20 14:00 05/16/20 06:23 60 MG Midazolam HCl (Versed) 5 mg PRN Q15MIN PRN 05/08/20 08:00 05/08/20 12:32 5 MG Ondansetron HCl (Zofran) 4 mg PRN Q4HRS PRN 05/08/20 16:15 Pantoprazole Sodium (PROTONIX VIAL for IV PUSH) 40 mg DAILYAC 05/08/20 11:30 05/16/20 07:41 40 MG Polyethylene Glycol (miraLAX PACKET) 17 gm PRN DAILY PRN 05/10/20 16:00 05/11/20 11:20 17 GM Propofol (Diprivan) 40 mg 1X ONCE 05/08/20 08:00 05/08/20 09:04 DC Sodium Monofluorophosphate (Fleet Adult) 133 ml PRN DAILY PRN 05/08/20 16:15 Sodium Chloride 1,000 ml @ 400 mls/hr Q2H30M PRN 05/13/20 12:00 05/13/20 19:00 DC Sodium Chloride (Normal Saline Flush) 10 ml 1X PRN PRN 05/12/20 08:30 05/13/20 08:29 DC Succinylcholine Chloride (Anectine) 100 mg 1X ONCE 05/08/20 07:45 05/08/20 09:04 DC 05/08/20 07:31 100 MG Lab Laboratory Tests Test 05/15/20 13:52 05/16/20 00:38 05/16/20 06:10 05/16/20 06:18 Glucose (Fingerstick) 240 mg/dL (70-99) 201 mg/dL (70-99) 217 mg/dL (70-99) White Blood Count 8.9 x10^3/uL (4.0-11.0) Red Blood Count 5.80 x10^6/uL (4.30-5.70) Hemoglobin 13.6 g/dL (13.0-17.5) Hematocrit 43.5 % (39.0-53.0) Mean Corpuscular Volume 75 fL (79-100) Mean Corpuscular Hemoglobin 23 pg (25-35) Mean Corpuscular Hemoglobin Concent 31 g/dL (31-37) Red Cell Distribution Width 17.0 % (11.5-14.5) Platelet Count 141 x10^3/uL (140-400) Neutrophils (%) (Auto) 92 % (31-73) Lymphocytes (%) (Auto) 3 % (24-48) Monocytes (%) (Auto) 5 % (0-9) Eosinophils (%) (Auto) 0 % (0-3) Basophils (%) (Auto) 0 % (0-3) Neutrophils # (Auto) 8.2 x10^3/uL (1.8-7.7) Lymphocytes # (Auto) 0.2 x10^3/uL (1.0-4.8) Monocytes # (Auto) 0.4 x10^3/uL (0.0-1.1) Eosinophils # (Auto) 0.0 x10^3/uL (0.0-0.7) Basophils # (Auto) 0.0 x10^3/uL (0.0-0.2) Sodium Level 140 mmol/L (136-145) Potassium Level 4.8 mmol/L (3.5-5.1) Chloride Level 104 mmol/L (98-107) Carbon Dioxide Level 31 mmol/L (21-32) Anion Gap 5 (6-14) Blood Urea Nitrogen 41 mg/dL (8-26) Creatinine 1.4 mg/dL (0.7-1.3) Estimated GFR (Cockcroft-Gault) 63.4 BUN/Creatinine Ratio 29 (6-20) Glucose Level 233 mg/dL (70-99) Calcium Level 8.3 mg/dL (8.5-10.1) Total Bilirubin 0.4 mg/dL (0.2-1.0) Aspartate Amino Transf (AST/SGOT) 7 U/L (15-37) Alanine Aminotransferase (ALT/SGPT) 23 U/L (16-63) Alkaline Phosphatase 39 U/L (46-116) Total Protein 5.0 g/dL (6.4-8.2) Albumin 2.2 g/dL (3.4-5.0) Albumin/Globulin Ratio 0.8 (1.0-1.7) Results All relevant outside records, renal labs, imaging studies, telemetry/EKG's were reviewed. Justicifation of Admission Dx: Justifications for Admission: Justification of Admission Dx: Yes CHF: Hemodynamic Instability Respiratory Failure: Mechanical Ventilation Acute COPD Exacerbation: Acute COPD Exacerbation Altered Mental Status: Altered Mental Status ISMAEL BOOTH MD May 16, 2020 09:12
--- NOTE | 2020-05-16 09:25 | PDOC ---
PROGRESS NOTES Chief Complaint Chief Complaint Assessment/Plan Impression: Respiratory failure requiring vent support 75% fio2 COPD ACUTE HYPOXIC / HYPERCAPNIC RESP FAILURE Slight improvement with persistent basilar density bilaterally more on the left. CXR 05/10 Screen COVID-19 virus infection neg 05/09 NSTEMI (non-ST elevated myocardial infarction) left ventricular systolic function is mildly impaired. Ejection Fraction is 45%. tricuspid regurgitation with an estimated PAP of 54 mmHg. COCAINE ABUSE, present on admit Morbid obesity EVY RENAL FX IMPROVING EVY Echogenic appearing bilateral kidneys probably medical renal disease., worse No evidence of hydronephrosis. negative COVID testing Consider further ischemic evaluation pending course of hospitalization Indeterminate right adrenal nodule can be correlated with prior imaging iF available otherwise close attention on follow-up Plan: ICU BED follow pulmonary recommendations for vent management. AC mode, remains intubated/sedated CARDIOLOGY FOLLOWING recommendations greatly appreciated. VENT SUPPORT heparin drip GI PROPHYLAXIS TAPERING IV STEROIDS covid 19 screen negative. Nephrology following cpk Echo to assess LV systolic function pending negative COVID testing review records from [facility] in [place], [place]. when available further ischemic evaluation pending course of hospitalization picc 05/10 BB moving forward with cocaine cessation counseling The patient was evaluated during the global COVID-19 pandemic, and that diagnosis was suspected/considered upon their initial presentation. Their evaluation, treatment and testing was consistent with current guidelines for patients who present with complaints or symptoms that may be related to COVID- 19. 38 MIN CC TIME VTE Prophylaxis Ordered VTE Prophylaxis Devices: Yes VTE Pharmacological Prophylaxi: Yes History of Present Illness History of Present Illness guarded prognosis 05/11 EVY WORSE, planning dialysis cr 3.4 wt 121 kg , family request transfer to [facility] notified, pending 05/12 patient will start dialysis, discussed with qa consultant. No acute events reported overnight, critically stable. 05/16 patient seems to be improving TRACKS No hemodialysis planned for today patient remains critically stable ? Adrenal mass Indeterminate right adrenal nodule can be correlated with prior imaging is available otherwise close attention on follow-up is recommended. 38 MIN CC TIME Vitals Vitals Vital Signs Date Time Temp Pulse Resp B/P (MAP) Pulse Ox O2 Delivery O2 Flow Rate FiO2 05/16/20 07:55 97 Ventilator 05/16/20 07:42 182/104 05/16/20 07:00 95 20 05/16/20 04:00 98.9 98.9 05/15/20 15:09 15.0 Physical Exam Physical Exam Heart: RRR Abdomen: obese Neurology: SEDATED General: Cooperative, No acute distress, Other (INTUBATED AND SEDATED) Heart: Regular rate, Normal S1, Normal S2 Lungs: Other (decrease bs) Abdomen: Normal bowel sounds, Soft, No tenderness Extremities: No clubbing, No cyanosis, No edema Skin: No breakdown, No significant lesion Labs LABS Laboratory Tests Test 05/15/20 13:52 05/16/20 00:38 05/16/20 06:10 05/16/20 06:18 Glucose (Fingerstick) 240 mg/dL (70-99) 201 mg/dL (70-99) 217 mg/dL (70-99) White Blood Count 8.9 x10^3/uL (4.0-11.0) Red Blood Count 5.80 x10^6/uL (4.30-5.70) Hemoglobin 13.6 g/dL (13.0-17.5) Hematocrit 43.5 % (39.0-53.0) Mean Corpuscular Volume 75 fL (79-100) Mean Corpuscular Hemoglobin 23 pg (25-35) Mean Corpuscular Hemoglobin Concent 31 g/dL (31-37) Red Cell Distribution Width 17.0 % (11.5-14.5) Platelet Count 141 x10^3/uL (140-400) Neutrophils (%) (Auto) 92 % (31-73) Lymphocytes (%) (Auto) 3 % (24-48) Monocytes (%) (Auto) 5 % (0-9) Eosinophils (%) (Auto) 0 % (0-3) Basophils (%) (Auto) 0 % (0-3) Neutrophils # (Auto) 8.2 x10^3/uL (1.8-7.7) Lymphocytes # (Auto) 0.2 x10^3/uL (1.0-4.8) Monocytes # (Auto) 0.4 x10^3/uL (0.0-1.1) Eosinophils # (Auto) 0.0 x10^3/uL (0.0-0.7) Basophils # (Auto) 0.0 x10^3/uL (0.0-0.2) Sodium Level 140 mmol/L (136-145) Potassium Level 4.8 mmol/L (3.5-5.1) Chloride Level 104 mmol/L (98-107) Carbon Dioxide Level 31 mmol/L (21-32) Anion Gap 5 (6-14) Blood Urea Nitrogen 41 mg/dL (8-26) Creatinine 1.4 mg/dL (0.7-1.3) Estimated GFR (Cockcroft-Gault) 63.4 BUN/Creatinine Ratio 29 (6-20) Glucose Level 233 mg/dL (70-99) Calcium Level 8.3 mg/dL (8.5-10.1) Total Bilirubin 0.4 mg/dL (0.2-1.0) Aspartate Amino Transf (AST/SGOT) 7 U/L (15-37) Alanine Aminotransferase (ALT/SGPT) 23 U/L (16-63) Alkaline Phosphatase 39 U/L (46-116) Total Protein 5.0 g/dL (6.4-8.2) Albumin 2.2 g/dL (3.4-5.0) Albumin/Globulin Ratio 0.8 (1.0-1.7) Assessment and Plan Assessmemt and Plan Problems Medical Problems: (1) Cocaine abuse Status: Acute (2) NSTEMI (non-ST elevated myocardial infarction) Status: Acute (3) Respiratory failure Status: Acute (4) Suspected COVID-19 virus infection Status: Acute Comment Review of Relevant I have reviewed the following items jeffrey (where applicable) has been applied. Labs Laboratory Tests Test 05/14/20 11:59 05/14/20 17:20 05/15/20 00:35 05/15/20 06:00 Glucose (Fingerstick) 259 mg/dL (70-99) 250 mg/dL (70-99) 208 mg/dL (70-99) Sodium Level 140 mmol/L (136-145) Potassium Level 4.4 mmol/L (3.5-5.1) Chloride Level 103 mmol/L (98-107) Carbon Dioxide Level 31 mmol/L (21-32) Anion Gap 6 (6-14) Blood Urea Nitrogen 42 mg/dL (8-26) Creatinine 1.7 mg/dL (0.7-1.3) Estimated GFR (Cockcroft-Gault) 50.7 Glucose Level 230 mg/dL (70-99) Calcium Level 7.9 mg/dL (8.5-10.1) Phosphorus Level 5.5 mg/dL (2.6-4.7) Magnesium Level 2.0 mg/dL (1.8-2.4) Hepatitis B Core Total Antibody Nonreactive (Nonreactive) Test 05/15/20 06:10 05/15/20 07:30 05/15/20 13:52 05/16/20 00:38 Glucose (Fingerstick) 212 mg/dL (70-99) 240 mg/dL (70-99) 201 mg/dL (70-99) O2 Saturation 94 % (92-99) Arterial Blood pH 7.34 (7.35-7.45) Arterial Blood pCO2 at Patient Temp 44 mmHg (35-46) Arterial Blood pO2 at Patient Temp 80 mmHg (75-108) Arterial Blood HCO3 23 mmol/L (21-28) Arterial Blood Base Excess -3 mmol/L (-3-3) FiO2 60 Test 05/16/20 06:10 05/16/20 06:18 White Blood Count 8.9 x10^3/uL (4.0-11.0) Red Blood Count 5.80 x10^6/uL (4.30-5.70) Hemoglobin 13.6 g/dL (13.0-17.5) Hematocrit 43.5 % (39.0-53.0) Mean Corpuscular Volume 75 fL (79-100) Mean Corpuscular Hemoglobin 23 pg (25-35) Mean Corpuscular Hemoglobin Concent 31 g/dL (31-37) Red Cell Distribution Width 17.0 % (11.5-14.5) Platelet Count 141 x10^3/uL (140-400) Neutrophils (%) (Auto) 92 % (31-73) Lymphocytes (%) (Auto) 3 % (24-48) Monocytes (%) (Auto) 5 % (0-9) Eosinophils (%) (Auto) 0 % (0-3) Basophils (%) (Auto) 0 % (0-3) Neutrophils # (Auto) 8.2 x10^3/uL (1.8-7.7) Lymphocytes # (Auto) 0.2 x10^3/uL (1.0-4.8) Monocytes # (Auto) 0.4 x10^3/uL (0.0-1.1) Eosinophils # (Auto) 0.0 x10^3/uL (0.0-0.7) Basophils # (Auto) 0.0 x10^3/uL (0.0-0.2) Sodium Level 140 mmol/L (136-145) Potassium Level 4.8 mmol/L (3.5-5.1) Chloride Level 104 mmol/L (98-107) Carbon Dioxide Level 31 mmol/L (21-32) Anion Gap 5 (6-14) Blood Urea Nitrogen 41 mg/dL (8-26) Creatinine 1.4 mg/dL (0.7-1.3) Estimated GFR (Cockcroft-Gault) 63.4 BUN/Creatinine Ratio 29 (6-20) Glucose Level 233 mg/dL (70-99) Calcium Level 8.3 mg/dL (8.5-10.1) Total Bilirubin 0.4 mg/dL (0.2-1.0) Aspartate Amino Transf (AST/SGOT) 7 U/L (15-37) Alanine Aminotransferase (ALT/SGPT) 23 U/L (16-63) Alkaline Phosphatase 39 U/L (46-116) Total Protein 5.0 g/dL (6.4-8.2) Albumin 2.2 g/dL (3.4-5.0) Albumin/Globulin Ratio 0.8 (1.0-1.7) Glucose (Fingerstick) 217 mg/dL (70-99) Laboratory Tests Test 05/15/20 13:52 05/16/20 00:38 05/16/20 06:10 05/16/20 06:18 Glucose (Fingerstick) 240 mg/dL (70-99) 201 mg/dL (70-99) 217 mg/dL (70-99) White Blood Count 8.9 x10^3/uL (4.0-11.0) Red Blood Count 5.80 x10^6/uL (4.30-5.70) Hemoglobin 13.6 g/dL (13.0-17.5) Hematocrit 43.5 % (39.0-53.0) Mean Corpuscular Volume 75 fL (79-100) Mean Corpuscular Hemoglobin 23 pg (25-35) Mean Corpuscular Hemoglobin Concent 31 g/dL (31-37) Red Cell Distribution Width 17.0 % (11.5-14.5) Platelet Count 141 x10^3/uL (140-400) Neutrophils (%) (Auto) 92 % (31-73) Lymphocytes (%) (Auto) 3 % (24-48) Monocytes (%) (Auto) 5 % (0-9) Eosinophils (%) (Auto) 0 % (0-3) Basophils (%) (Auto) 0 % (0-3) Neutrophils # (Auto) 8.2 x10^3/uL (1.8-7.7) Lymphocytes # (Auto) 0.2 x10^3/uL (1.0-4.8) Monocytes # (Auto) 0.4 x10^3/uL (0.0-1.1) Eosinophils # (Auto) 0.0 x10^3/uL (0.0-0.7) Basophils # (Auto) 0.0 x10^3/uL (0.0-0.2) Sodium Level 140 mmol/L (136-145) Potassium Level 4.8 mmol/L (3.5-5.1) Chloride Level 104 mmol/L (98-107) Carbon Dioxide Level 31 mmol/L (21-32) Anion Gap 5 (6-14) Blood Urea Nitrogen 41 mg/dL (8-26) Creatinine 1.4 mg/dL (0.7-1.3) Estimated GFR (Cockcroft-Gault) 63.4 BUN/Creatinine Ratio 29 (6-20) Glucose Level 233 mg/dL (70-99) Calcium Level 8.3 mg/dL (8.5-10.1) Total Bilirubin 0.4 mg/dL (0.2-1.0) Aspartate Amino Transf (AST/SGOT) 7 U/L (15-37) Alanine Aminotransferase (ALT/SGPT) 23 U/L (16-63) Alkaline Phosphatase 39 U/L (46-116) Total Protein 5.0 g/dL (6.4-8.2) Albumin 2.2 g/dL (3.4-5.0) Albumin/Globulin Ratio 0.8 (1.0-1.7) Microbiology 05/08/20 Blood Culture - Final, Complete NO GROWTH AFTER 5 DAYS Medications Current Medications Propofol 50 ml @ As Directed STK-MED ONCE IV ; Start 05/08/20 at 07:33; Stop 05/08/20 at 07:33; Status DC Propofol 100 ml @ 0 mls/hr CONT PRN IV SEE PROTOCOL Last administered on 05/16/20at 06:22; Start 05/08/20 at 07:45 Fentanyl Citrate (Fentanyl 2ml Vial) 50 mcg PRN Q1HR PRN IV SEE COMMENTS Last administered on 05/08/20at 12:44; Start 05/08/20 at 07:45 Chlorhexidine Gluconate (Peridex) 15 ml BID MM Last administered on 05/16/20at 08:04; Start 05/08/20 at 09:00 Etomidate (Amidate) 20 mg 1X ONCE IV Last administered on 05/08/20at 07:30; Start 05/08/20 at 07:45; Stop 05/08/20 at 09:04; Status DC Succinylcholine Chloride (Anectine) 100 mg 1X ONCE IV Last administered on 05/08/20at 07:31; Start 05/08/20 at 07:45; Stop 05/08/20 at 09:04; Status DC Albuterol/ Ipratropium (Duoneb) 6 ml 1X ONCE NEB ; Start 05/08/20 at 07:45; Stop 05/08/20 at 09:04; Status DC Methylprednisolone Sodium Succinate (SOLU-Medrol 125MG VIAL) 125 mg 1X ONCE IV Last administered on 05/08/20at 08:31; Start 05/08/20 at 07:45; Stop 05/08/20 at 09:04; Status DC Albuterol Sulfate (Ventolin Neb Soln) 2.5 mg 1X ONCE NEB ; Start 05/08/20 at 07:45; Stop 05/08/20 at 08:56; Status DC Ceftriaxone Sodium (Rocephin) 1 gm 1X ONCE IVP Last administered on 05/08/20at 08:31; Start 05/08/20 at 07:45; Stop 05/08/20 at 09:04; Status DC Propofol (Diprivan) 40 mg 1X ONCE IV ; Start 05/08/20 at 08:00; Stop 05/08/20 at 09:04; Status DC Fentanyl Citrate 30 ml @ 0 mls/hr CONT PRN IV SEE PROTOCOL Last administered on 05/16/20at 03:20; Start 05/08/20 at 08:15 Midazolam HCl 100 ml @ 0 mls/hr CONT PRN IV SEE PROTOCOL Last administered on 05/14/20at 23:34; Start 05/08/20 at 08:15 Sodium Chloride 1,000 ml @ 1,000 mls/hr 1X ONCE IV Last administered on 05/08/20at 08:47; Start 05/08/20 at 08:30; Stop 05/08/20 at 09:29; Status DC Midazolam HCl (Versed) 5 mg 1X ONCE IV Last administered on 05/08/20at 08:33; Start 05/08/20 at 08:30; Stop 05/08/20 at 09:04; Status DC Ondansetron HCl (Zofran) 4 mg PRN Q8HRS PRN IV NAUSEA/VOMITING; Start 05/08/20 at 08:45; Stop 05/09/20 at 08:44; Status DC Aspirin (Aspirin Rectal Supp) 300 mg 1X ONCE ND Last administered on 05/08/20at 10:00; Start 05/08/20 at 08:45; Stop 05/08/20 at 09:04; Status DC Sodium Chloride (Normal Saline Flush) 3 ml QSHIFT PRN IV AFTER MEDS AND BLOOD DRAWS; Start 05/08/20 at 11:30; Stop 05/08/20 at 18:55; Status DC Sodium Chloride 1,000 ml @ 60 mls/hr [id number] IV Last administered on 05/08/20at 12:53; Start 05/08/20 at 11:24; Stop 05/08/20 at 18:55; Status DC Ondansetron HCl (Zofran) 4 mg PRN Q4HRS PRN IV NAUSEA/VOMITING; Start 05/08/20 at 11:30; Stop 05/08/20 at 18:55; Status DC Acetaminophen (Tylenol Supp) 650 mg PRN Q4HRS PRN ND TEMP OVER 100.4F OR MILD PAIN; Start 05/08/20 at 11:30; Stop 05/08/20 at 18:47; Status DC Sodium Monofluorophosphate (Fleet Adult) 133 ml PRN DAILY PRN ND CONSTIPATION; Start 05/08/20 at 11:30; Stop 05/08/20 at 18:55; Status DC Albuterol/ Ipratropium (Duoneb) 3 ml Q4H NEB ; Start 05/08/20 at 11:30; Stop 05/08/20 at 15:37; Status DC Enoxaparin Sodium (Lovenox 40mg Syringe) 40 mg DAILY SQ ; Start 05/09/20 at 09:00; Stop 05/08/20 at 18:54; Status DC Pantoprazole Sodium (PROTONIX VIAL for IV PUSH) 40 mg DAILYAC IVP Last administered on 05/16/20at 07:41; Start 05/08/20 at 11:30 Etomidate (Amidate) 40 mg 1X ONCE IV Last administered on 05/08/20at 07:57; Start 05/08/20 at 07:55; Stop 05/08/20 at 12:05; Status DC Methylprednisolone Sodium Succinate (SOLU-Medrol 125MG VIAL) 60 mg Q8HRS IV Last administered on 05/16/20at 06:23; Start 05/08/20 at 14:00 Midazolam HCl (Versed) 5 mg PRN Q15MIN PRN IV SEDATION Last administered on 05/08/20at 12:32; Start 05/08/20 at 08:00 Enoxaparin Sodium (Lovenox Per Pharmacy Prophylaxis Dosing) 1 each PRN DAILY PRN MC SEE COMMENTS; Start 05/08/20 at 16:00; Stop 05/10/20 at 09:14; Status DC Sodium Chloride (Normal Saline Flush) 3 ml QSHIFT PRN IV AFTER MEDS AND BLOOD DRAWS; Start 05/08/20 at 16:15 Sodium Chloride 1,000 ml @ 50 mls/hr Q20H IV Last administered on 05/16/20at 03:18; Start 05/08/20 at 16:01 Ondansetron HCl (Zofran) 4 mg PRN Q4HRS PRN IV NAUSEA/VOMITING; Start 05/08/20 at 16:15 Acetaminophen (Tylenol Supp) 650 mg PRN Q4HRS PRN ND TEMP OVER 100.4F OR MILD PAIN; Start 05/08/20 at 16:15 Sodium Monofluorophosphate (Fleet Adult) 133 ml PRN DAILY PRN ND CONSTIPATION; Start 05/08/20 at 16:15 Albuterol/ Ipratropium (Duoneb) 3 ml Q4H NEB ; Start 05/08/20 at 16:15; Stop 05/08/20 at 18:45; Status DC Enoxaparin Sodium (Lovenox 40mg Syringe) 40 mg Q24H SQ Last administered on 05/09/20at 17:04; Start 05/08/20 at 17:00; Stop 05/10/20 at 09:14; Status DC Ceftriaxone Sodium (Rocephin) 1 gm Q24H IVP Last administered on 05/16/20at 07:46; Start 05/09/20 at 08:00 Aspirin (Aspirin Chewable) 81 mg DAILYWBKFT PO ; Start 05/08/20 at 17:30; Stop 05/08/20 at 17:27; Status DC Aspirin (Aspirin Chewable) 81 mg DAILYWBKFT PO Last administered on 05/16/20at 07:42; Start 05/09/20 at 08:00 Albuterol Sulfate (Ventolin Neb Soln) 2.5 mg PRN Q4HRS PRN NEB SHORTNESS OF BREATH; Start 05/08/20 at 19:00 Amlodipine Besylate (Norvasc) 10 mg 1X ONCE PO Last administered on 05/09/20at 14:31; Start 05/09/20 at 14:30; Stop 05/09/20 at 14:31; Status DC Clonidine HCl (Catapres) 0.1 mg PRN Q2HR PRN PO HYPERTENSION Last administered on 05/13/20at 10:18; Start 05/09/20 at 14:30; Stop 05/13/20 at 11:34; Status DC Enoxaparin Sodium (Lovenox Per Pharmacy Treatment Dosing) 1 each PRN DAILY PRN MC SEE COMMENTS; Start 05/10/20 at 09:30; Status Cancel Enoxaparin Sodium (Lovenox 120mg Syringe) 120 mg DAILY SQ Last administered on 05/10/20at 10:19; Start 05/10/20 at 10:00; Stop 05/10/20 at 10:48; Status DC Heparin Sodium/ Dextrose 250 ml @ 10 mls/hr CONT PRN IV PER PROTOCOL Last administered on 05/11/20at 20:59; Start 05/10/20 at 11:00; Stop 05/13/20 at 13:35; Status DC Heparin Sodium (Porcine) (Heparin Sodium) 2,950 unit PRN Q6HRS PRN IV FOR UFH LEVEL LESS THAN 0.2; Start 05/10/20 at 11:00; Stop 05/13/20 at 13:36; Status DC Polyethylene Glycol (miraLAX PACKET) 17 gm PRN DAILY PRN PO CONSTIPATION Last administered on 05/11/20at 11:20; Start 05/10/20 at 16:00 Lidocaine HCl (Buffered Lidocaine 1%) 3 ml STK-MED ONCE .ROUTE ; Start 05/11/20 at 13:30; Stop 05/11/20 at 13:30; Status DC Lidocaine HCl (Buffered Lidocaine 1%) 6 ml 1X ONCE INJ Last administered on 05/11/20at 13:50; Start 05/11/20 at 14:00; Stop 05/11/20 at 14:01; Status DC Sodium Chloride 1,000 ml @ 1,000 mls/hr Q1H PRN IV hypotension; Start 05/11/20 at 15:19; Stop 05/11/20 at 21:18; Status DC Info (PHARMACY MONITORING -- do not chart) 1 each PRN DAILY PRN MC SEE COMMENTS; Start 05/11/20 at 15:30; Status Cancel Info (PHARMACY MONITORING -- do not chart) 1 each PRN DAILY PRN MC SEE COMMENTS; Start 05/11/20 at 15:30; Status UNV Sodium Chloride 1,000 ml @ 1,000 mls/hr Q1H PRN IV hypotension; Start 05/12/20 at 08:28; Stop 05/12/20 at 14:27; Status DC Albumin Human 200 ml @ 200 mls/hr 1X PRN PRN IV Hypotension; Start 05/12/20 at 08:30; Stop 05/12/20 at 14:29; Status DC Sodium Chloride (Normal Saline Flush) 10 ml 1X PRN PRN IV AP catheter pack; Start 05/12/20 at 08:30; Stop 05/13/20 at 08:29; Status DC Sodium Chloride (Normal Saline Flush) 10 ml 1X PRN PRN IV 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; Start 05/12/20 at 08:30; Stop 05/13/20 at 08:29; Status DC Sodium Chloride 1,000 ml @ 400 mls/hr Q2H30M PRN IV PATENCY; Start 05/12/20 at 08:28; Stop 05/12/20 at 20:27; Status DC Info (PHARMACY MONITORING -- do not chart) 1 each PRN DAILY PRN MC SEE COMMENTS; Start 05/12/20 at 08:30; Status UNV Info (PHARMACY MONITORING -- do not chart) 1 each PRN DAILY PRN MC SEE COMMENTS; Start 05/12/20 at 08:30 Info (Anti-Coagulation Monitoring By Pharmacy) 1 each PRN DAILY PRN MC SEE COMMENTS; Start 05/12/20 at 09:15; Stop 05/13/20 at 13:35; Status DC Iohexol (Omnipaque 350 Mg/ml) 100 ml 1X ONCE IV Last administered on 05/12/20at 15:45; Start 05/12/20 at 11:45; Stop 05/12/20 at 11:46; Status DC Info (CONTRAST GIVEN -- Rx MONITORING) 1 each PRN DAILY PRN MC SEE COMMENTS; Start 05/12/20 at 11:45; Stop 05/14/20 at 11:44; Status DC Insulin Human Lispro (HumaLOG) 0-5 UNITS TIDWMEALS SQ Last administered on 05/12/20at 18:16; Start 05/12/20 at 13:00; Stop 05/12/20 at 19:02; Status DC Dextrose (Dextrose 50%-Water Syringe) 12.5 gm PRN Q15MIN PRN IV SEE COMMENTS; Start 05/12/20 at 12:45 Dextrose (Iv Dextrose 5%) 250 ml PRN Q15MIN PRN IV SEE COMMENTS; Start 05/12/20 at 12:45 Insulin Human Lispro (HumaLOG) 0-5 UNITS Q6HRS SQ Last administered on 05/16/20at 06:24; Start 05/13/20 at 00:00 Labetalol HCl (Normodyne Iv Push) 10 mg PRN Q4HRS PRN IVP HYPERTENSION Last administered on 05/14/20at 09:03; Start 05/13/20 at 12:00 Sodium Chloride 1,000 ml @ 1,000 mls/hr Q1H PRN IV hypotension; Start 05/13/20 at 12:00; Stop 05/13/20 at 19:00; Status DC Sodium Chloride 1,000 ml @ 400 mls/hr Q2H30M PRN IV PATENCY; Start 05/13/20 at 12:00; Stop 05/13/20 at 19:00; Status DC Info (PHARMACY MONITORING -- do not chart) 1 each PRN DAILY PRN MC SEE COMMENTS; Start 05/13/20 at 12:00; Status UNV Info (PHARMACY MONITORING -- do not chart) 1 each PRN DAILY PRN MC SEE COM MENTS; Start 05/13/20 at 12:00; Status UNV Heparin Sodium (Porcine) (Heparin Sodium) 5,000 unit Q12HR SQ Last administered on 05/16/20at 08:07; Start 05/13/20 at 21:00 Amlodipine Besylate (Norvasc) 10 mg DAILY PO Last administered on 05/16/20at 07:42; Start 05/14/20 at 12:00 Hydralazine HCl (Apresoline Inj) 25 mg TID IVP Last administered on 05/16/20at 07:42; Start 05/14/20 at 12:00 Furosemide (Lasix) 80 mg 1X ONCE IVP Last administered on 05/14/20at 12:03; Start 05/14/20 at 12:00; Stop 05/14/20 at 12:01; Status DC Active Scripts Active Reported [amlodipine benazep] Unknown Dose PO Proventil Hfa (Albuterol Sulfate) 6.7 Gm Hfa.aer.ad 1 Puff INH PRN Q6HRS PRN Advair 100-50 Diskus (Fluticasone/Salmeterol) 1 Each Disk.w.dev 1 Puff IH BID Vitals/I & O Vital Sign - Last 24 Hours 05/15/20 05/15/20 05/15/20 05/15/20 10:00 10:04 10:05 11:00 Pulse 78 81 102 Resp 20 19 B/P (MAP) 108/62 (77) 108/62 108/62 141/83 (102) Pulse Ox 96 96 O2 Delivery Ventilator Ventilator 05/15/20 05/15/20 05/15/20 05/15/20 11:19 12:00 12:00 13:00 Temp 98.3 98.3 Pulse 112 116 Resp 22 28 B/P (MAP) 150/83 (105) 150/87 (108) Pulse Ox 95 94 94 O2 Delivery Ventilator Ventilator Mechanical Ventilator Ventilator 05/15/20 05/15/20 05/15/20 05/15/20 13:57 14:00 14:39 15:00 Pulse 112 114 Resp B/P (MAP) 144/76 144/76 (98) 132/56 (81) Pulse Ox 93 95 94 O2 Delivery Ventilator Ventilator O2 Flow Rate 15.0 05/15/20 05/15/20 05/15/20 05/15/20 15:09 15:53 16:00 16:00 Temp 98.4 98.4 Pulse 114 Resp 29 B/P (MAP) 113/68 (83) Pulse Ox 91 95 93 O2 Delivery Ventilator Ventilator Mechanical Ventilator O2 Flow Rate 15.0 05/15/20 05/15/20 05/15/20 05/15/20 17:00 18:00 19:00 20:00 Temp 100.3 100.3 Pulse 114 106 104 99 Resp 20 B/P (MAP) 140/76 (97) 143/76 (98) 129/65 (86) 134/70 (91) Pulse Ox 92 91 94 94 O2 Delivery Ventilator Ventilator Ventilator Ventilator 05/15/20 05/15/20 05/15/20 05/15/20 20:00 20:30 21:00 21:00 Pulse 93 93 Resp 18 B/P (MAP) 96/49 96/49 (65) Pulse Ox 94 95 O2 Delivery Mechanical Ventilator Ventilator Ventilator 05/15/20 05/15/20 05/15/20 05/15/20 22:00 23:00 23:44 23:59 Temp 99.3 98.8 99.3 98.8 Pulse 88 84 85 Resp 18 20 B/P (MAP) 93/54 (67) 112/63 (79) 113/63 (80) Pulse Ox 95 95 96 96 O2 Delivery Ventilator Ventilator Ventilator Ventilator 05/15/20 05/16/20 05/16/20 05/16/20 23:59 01:00 02:00 03:00 Pulse 91 85 90 Resp 18 18 18 B/P (MAP) 115/66 (82) 113/62 (79) 131/42 (71) Pulse Ox 97 97 97 O2 Delivery Mechanical Ventilator Ventilator Ventilator Ventilator 05/16/20 05/16/20 05/16/20 05/16/20 03:20 03:50 04:00 04:00 Resp 18 18 Pulse Ox 97 95 95 O2 Delivery Ventilator Ventilator Mechanical Ventilator 05/16/20 05/16/20 05/16/20 05/16/20 04:00 05:00 06:00 07:00 Temp 98.9 98.9 Pulse 88 90 86 95 Resp 18 18 20 20 B/P (MAP) 136/92 (107) 171/105 (127) 161/95 (117) 182/104 (130) Pulse Ox 97 98 98 98 O2 Delivery Ventilator Ventilator Ventilator Ventilator 05/16/20 05/16/20 05/16/20 07:42 07:42 07:55 B/P (MAP) 182/104 182/104 Pulse Ox 97 O2 Delivery Ventilator Intake and Output 05/15/20 05/15/20 05/16/20 15:00 23:00 07:00 Intake Total 340 ml 1083 ml 1206 ml Output Total 950 ml 1330 ml 770 ml Balance -610 ml -247 ml 436 ml CLARK MCMANUS MD May 16, 2020 09:24
[2020-05-16] MEDS: LABETALOL 20 MG/4 ML DISP.SYRIN. IVP PRN (10:40)
--- NOTE | 2020-05-16 11:08 | NUR ---
SS following up with discharge planning. SS reviewed pt chart and discussed with pt RN. Pt remains on the vent at this time. Per RN, pt will have CPAP trial today. Pt on IV Rocephin. Pt temperature better today. SS will continue to follow for discharge planning.
[2020-05-16 12:14] LABS: FIO2 ABG 40%+7
--- NOTE | 2020-05-16 13:24 | PDOC ---
BLAINE KEENE ASSISTANT DIRECTOR OF NURSING 05/16/20 1324: CARDIO Progress Notes Date and Time Date of Service 05/16/2020 Time of Evaluation 1220 Subjective Subjective: Other (intubated) Vitals Vitals Vital Signs Date Time Temp Pulse Resp B/P (MAP) Pulse Ox O2 Delivery O2 Flow Rate FiO2 05/16/20 11:30 96 Ventilator 05/16/20 11:00 108 29 169/98 (121) 05/16/20 08:00 98.1 98.1 05/15/20 15:09 15.0 Weight Weight [ ] Input and Output Intake and Output Intake and Output 05/16/20 07:00 Intake Total 2629 ml Output Total 3050 ml Balance -421 ml Tube Feeding 1923 ml Other 706 ml Output Urine Total 3050 ml Gastric Drainage Total 0 ml Laboratory Labs Laboratory Tests Test 05/15/20 13:52 05/16/20 00:38 05/16/20 06:10 05/16/20 06:18 Glucose (Fingerstick) 240 mg/dL (70-99) 201 mg/dL (70-99) 217 mg/dL (70-99) White Blood Count 8.9 x10^3/uL (4.0-11.0) Red Blood Count 5.80 x10^6/uL (4.30-5.70) Hemoglobin 13.6 g/dL (13.0-17.5) Hematocrit 43.5 % (39.0-53.0) Mean Corpuscular Volume 75 fL (79-100) Mean Corpuscular Hemoglobin 23 pg (25-35) Mean Corpuscular Hemoglobin Concent 31 g/dL (31-37) Red Cell Distribution Width 17.0 % (11.5-14.5) Platelet Count 141 x10^3/uL (140-400) Neutrophils (%) (Auto) 92 % (31-73) Lymphocytes (%) (Auto) 3 % (24-48) Monocytes (%) (Auto) 5 % (0-9) Eosinophils (%) (Auto) 0 % (0-3) Basophils (%) (Auto) 0 % (0-3) Neutrophils # (Auto) 8.2 x10^3/uL (1.8-7.7) Lymphocytes # (Auto) 0.2 x10^3/uL (1.0-4.8) Monocytes # (Auto) 0.4 x10^3/uL (0.0-1.1) Eosinophils # (Auto) 0.0 x10^3/uL (0.0-0.7) Basophils # (Auto) 0.0 x10^3/uL (0.0-0.2) Sodium Level 140 mmol/L (136-145) Potassium Level 4.8 mmol/L (3.5-5.1) Chloride Level 104 mmol/L (98-107) Carbon Dioxide Level 31 mmol/L (21-32) Anion Gap 5 (6-14) Blood Urea Nitrogen 41 mg/dL (8-26) Creatinine 1.4 mg/dL (0.7-1.3) Estimated GFR (Cockcroft-Gault) 63.4 BUN/Creatinine Ratio 29 (6-20) Glucose Level 233 mg/dL (70-99) Calcium Level 8.3 mg/dL (8.5-10.1) Total Bilirubin 0.4 mg/dL (0.2-1.0) Aspartate Amino Transf (AST/SGOT) 7 U/L (15-37) Alanine Aminotransferase (ALT/SGPT) 23 U/L (16-63) Alkaline Phosphatase 39 U/L (46-116) Total Protein 5.0 g/dL (6.4-8.2) Albumin 2.2 g/dL (3.4-5.0) Albumin/Globulin Ratio 0.8 (1.0-1.7) Test 05/16/20 08:00 05/16/20 12:05 O2 Saturation 94 % (92-99) Arterial Blood pH 7.39 (7.35-7.45) Arterial Blood pCO2 at Patient Temp 47 mmHg (35-46) Arterial Blood pO2 at Patient Temp 68 mmHg (75-108) Arterial Blood HCO3 28 mmol/L (21-28) Arterial Blood Base Excess 2 mmol/L (-3-3) FiO2 40%+7 Glucose (Fingerstick) 251 mg/dL (70-99) Microbiology Micro Microbiology 05/08/20 Blood Culture - Final, Complete NO GROWTH AFTER 5 DAYS Review of Systems Constitutional: yes: other (ON THE VENT SEDATED) Physical Exam Chest: Symmetric LUNGS: Other (intubated) Heart: RRR (SR with significant ectopies) Abdomen: Other (obese) Neurology: other (sedated) Assessment Assessment 1. Acute on chronic respiratory failure with AECOPD and acute CHF. remains intubated. COVID negative. No PE per pulmonary 2. NSTEMI; highest trop 1.6.likely demand mediated with above. No significant arrhythmias 3. Severe EVY: last HD was last wk. UOP improving, Cr much better 4. Mild transaminitis: resolved 5. Leukocytosis 6. DM2: A1C 6.7. NEW? per PCP 7. Substance abuse; UDS + cocaine 8. Probable CONNER 9. Mild Cardiomyopathy: EF at 45%. No significant arrhythmia. sinus tach 10. HTN urgency: while off sedation. Recommendations 1. ASA. Avoid nephrotoxins. Continue norvasc. BP much better after resuming sedation. Continue hydralazine and will start coreg. Will uptitrate BP meds once off sedation per BP trend. 2. OUtp stress test. 3. Follow pulm recs. Supportive care 4. Supportive care Justicifation of Admission Dx: Justifications for Admission: Justification of Admission Dx: Yes CHF: Hemodynamic Instability Respiratory Failure: Mechanical Ventilation Acute COPD Exacerbation: Acute COPD Exacerbation Altered Mental Status: Altered Mental Status TINY MARSHALL MD 05/16/20 1743: CARDIO Progress Notes Plan Plan Patient seen and examined. Agree with above nurse practitioner note. No acute events overnight. Oxygenation is improved. Awaiting trial per pulmonary. Stable from a cardiovascular perspective. Supportive care. BLAINE KEENE APRN May 16, 2020 13:24 TINY MARSHALL MD May 16, 2020 17:43
[2020-05-16] MEDS: MIDAZOLAM 100mg/100ml NS BAG 100 ML IV PRN (14:08)
[2020-05-16] MEDS ORDERED: CARVEDILOL 3.125 MG TABLET. PO SCH (17:00)
[2020-05-16] MEDS ORDERED: CARVEDILOL 12.5 MG TABLET. PO SCH (17:00)
[2020-05-16] MEDS: hydrALAZINE 25 MG TABLET PO SCH (21:04)
[2020-05-17] VITALS (25 sets, daily range): BP systolic 104–193; BP diastolic 54–119
[2020-05-17] MEDS: INSULIN LISPRO 300 UNITS/3 ML VIAL. SQ SCH ×4 (00:01→18:07)
[2020-05-17] MEDS: PROPOFOL 100 ML IV PRN ×5 (00:58→14:21)
[2020-05-17] MEDS: LABETALOL 20 MG/4 ML DISP.SYRIN. IVP PRN (05:16)
--- NOTE | 2020-05-17 06:22 | RAD ---
AP chest. HISTORY: CHF AP view was taken of the chest. Endotracheal tube, dialysis catheter and NG tube are unchanged. There are bilateral effusions. There is retrocardiac atelectasis or infiltrate in the left lung base. There is mild right perihilar infiltrate or pulmonary edema. IMPRESSION: 1. Persistent pleural effusions and basilar atelectasis or infiltrates. 2. Little change. Electronically signed by: Pio Melendrez MD (05/17/2020 6:18 AM) [id number]
[2020-05-17] MEDS: methylPREDNISolone SOD SUCC PF 125 MG/2 ML VIAL. IV SCH ×3 (06:32→23:03)
[2020-05-17] MEDS: hydrALAZINE 20 MG/ML VIAL. IVP PRN ×2 (06:38→16:48)
[2020-05-17 07:25] LABS: ALBUMIN 2.4 g/dL (3.4-5.0); CALCIUM 8.5 mg/dL (8.5-10.1); CREATININE 1.2 mg/dL (0.7-1.3); GFR 75.8; PHOSPHORUS 3.9 mg/dL (2.6-4.7); POTASSIUM 4.5 mmol/L (3.5-5.1)
[2020-05-17 07:46] LABS: BASE EXCESS ABG 6 mmol/L (-3-3); HCO3 ABG 32 mmol/L (21-28); PCO2 ABG 54 mmHg (35-46); PO2 ABG 74 mmHg (75-108); SAT O2 ABG 95 % (92-99)
[2020-05-17 07:48] LABS: FIO2 ABG 40
--- NOTE | 2020-05-17 08:34 | PDOC ---
PULMONARY PROGRESS NOTES Subjective Patient is on assist control ventilation, some abdominal breathing A patient sedation holiday, very agitated Vitals Vital Signs Date Time Temp Pulse Resp B/P (MAP) Pulse Ox O2 Delivery O2 Flow Rate FiO2 05/17/20 07:36 97 Ventilator 05/17/20 07:00 90 20 178/98 (124) 05/17/20 04:00 98.6 98.6 05/16/20 15:55 15.0 Comments intubated/sedated Lungs: Other (decrease bs) Cardiovascular: S1 Abdomen: Soft, Other (obese) Extremities: Other (BLE +1) Skin: Warm, Dry Labs Laboratory Tests Test 05/15/20 13:52 05/16/20 00:38 05/16/20 06:10 05/16/20 06:18 Glucose (Fingerstick) 240 mg/dL (70-99) 201 mg/dL (70-99) 217 mg/dL (70-99) White Blood Count 8.9 x10^3/uL (4.0-11.0) Red Blood Count 5.80 x10^6/uL (4.30-5.70) Hemoglobin 13.6 g/dL (13.0-17.5) Hematocrit 43.5 % (39.0-53.0) Mean Corpuscular Volume 75 fL (79-100) Mean Corpuscular Hemoglobin 23 pg (25-35) Mean Corpuscular Hemoglobin Concent 31 g/dL (31-37) Red Cell Distribution Width 17.0 % (11.5-14.5) Platelet Count 141 x10^3/uL (140-400) Neutrophils (%) (Auto) 92 % (31-73) Lymphocytes (%) (Auto) 3 % (24-48) Monocytes (%) (Auto) 5 % (0-9) Eosinophils (%) (Auto) 0 % (0-3) Basophils (%) (Auto) 0 % (0-3) Neutrophils # (Auto) 8.2 x10^3/uL (1.8-7.7) Lymphocytes # (Auto) 0.2 x10^3/uL (1.0-4.8) Monocytes # (Auto) 0.4 x10^3/uL (0.0-1.1) Eosinophils # (Auto) 0.0 x10^3/uL (0.0-0.7) Basophils # (Auto) 0.0 x10^3/uL (0.0-0.2) Sodium Level 140 mmol/L (136-145) Potassium Level 4.8 mmol/L (3.5-5.1) Chloride Level 104 mmol/L (98-107) Carbon Dioxide Level 31 mmol/L (21-32) Anion Gap 5 (6-14) Blood Urea Nitrogen 41 mg/dL (8-26) Creatinine 1.4 mg/dL (0.7-1.3) Estimated GFR (Cockcroft-Gault) 63.4 BUN/Creatinine Ratio 29 (6-20) Glucose Level 233 mg/dL (70-99) Calcium Level 8.3 mg/dL (8.5-10.1) Total Bilirubin 0.4 mg/dL (0.2-1.0) Aspartate Amino Transf (AST/SGOT) 7 U/L (15-37) Alanine Aminotransferase (ALT/SGPT) 23 U/L (16-63) Alkaline Phosphatase 39 U/L (46-116) Total Protein 5.0 g/dL (6.4-8.2) Albumin 2.2 g/dL (3.4-5.0) Albumin/Globulin Ratio 0.8 (1.0-1.7) Test 05/16/20 08:00 05/16/20 12:05 05/16/20 23:58 05/17/20 06:20 O2 Saturation 94 % (92-99) Arterial Blood pH 7.39 (7.35-7.45) Arterial Blood pCO2 at Patient Temp 47 mmHg (35-46) Arterial Blood pO2 at Patient Temp 68 mmHg (75-108) Arterial Blood HCO3 28 mmol/L (21-28) Arterial Blood Base Excess 2 mmol/L (-3-3) FiO2 40%+7 Glucose (Fingerstick) 251 mg/dL (70-99) 232 mg/dL (70-99) Sodium Level 140 mmol/L (136-145) Potassium Level 4.5 mmol/L (3.5-5.1) Chloride Level 103 mmol/L (98-107) Carbon Dioxide Level 32 mmol/L (21-32) Anion Gap 5 (6-14) Blood Urea Nitrogen 38 mg/dL (8-26) Creatinine 1.2 mg/dL (0.7-1.3) Estimated GFR (Cockcroft-Gault) 75.8 Glucose Level 243 mg/dL (70-99) Calcium Level 8.5 mg/dL (8.5-10.1) Phosphorus Level 3.9 mg/dL (2.6-4.7) Albumin 2.4 g/dL (3.4-5.0) Test 05/17/20 06:40 05/17/20 07:36 Glucose (Fingerstick) 218 mg/dL (70-99) O2 Saturation 95 % (92-99) Arterial Blood pH 7.39 (7.35-7.45) Arterial Blood pCO2 at Patient Temp 54 mmHg (35-46) Arterial Blood pO2 at Patient Temp 74 mmHg (75-108) Arterial Blood HCO3 32 mmol/L (21-28) Arterial Blood Base Excess 6 mmol/L (-3-3) FiO2 40 Laboratory Tests Test 05/16/20 12:05 05/16/20 23:58 05/17/20 06:20 05/17/20 06:40 Glucose (Fingerstick) 251 mg/dL (70-99) 232 mg/dL (70-99) 218 mg/dL (70-99) Sodium Level 140 mmol/L (136-145) Potassium Level 4.5 mmol/L (3.5-5.1) Chloride Level 103 mmol/L (98-107) Carbon Dioxide Level 32 mmol/L (21-32) Anion Gap 5 (6-14) Blood Urea Nitrogen 38 mg/dL (8-26) Creatinine 1.2 mg/dL (0.7-1.3) Estimated GFR (Cockcroft-Gault) 75.8 Glucose Level 243 mg/dL (70-99) Calcium Level 8.5 mg/dL (8.5-10.1) Phosphorus Level 3.9 mg/dL (2.6-4.7) Albumin 2.4 g/dL (3.4-5.0) Test 05/17/20 07:36 O2 Saturation 95 % (92-99) Arterial Blood pH 7.39 (7.35-7.45) Arterial Blood pCO2 at Patient Temp 54 mmHg (35-46) Arterial Blood pO2 at Patient Temp 74 mmHg (75-108) Arterial Blood HCO3 32 mmol/L (21-28) Arterial Blood Base Excess 6 mmol/L (-3-3) FiO2 40 Medications Active Scripts Medications Dose Route/Sig Max Daily Dose Days Date Category [amlodipine benazep] Unknown Dose PO 05/08/20 Reported Proventil Hfa (Albuterol Sulfate) 6.7 Gm Hfa.aer.ad 1 Puff INH PRN Q6HRS PRN 05/08/20 Reported Advair 100-50 Diskus (Fluticasone/Salmeterol) 1 Each Disk.w.dev 1 Puff IH BID 05/08/20 Reported Comments CXR 05/14/2020 IMPRESSION: 1. Persistent pleural effusions with basilar atelectasis or infiltrates. 2. Tubes and lines unchanged. CTA chest IMPRESSION: 1. No evidence for acute pulmonary embolus the level of the subsegmental branches. More peripheral vessels are not well assessed. 2. Are seen moderate bilateral pleural effusions are seen. 3. Lower atelectasis of the lower lobes and atelectasis of the middle lobe without obvious obstructing mass, etiology is uncertain. Of note there may be small hilar lymph nodes bilaterally that are secured by the pleural effusions and hilar infiltration. Consider further evaluation with bronchoscopy or short interval follow-up CT following resolution of the acute process to further delineate. 4. Indeterminate right adrenal nodule can be correlated with prior imaging is available otherwise close attention on follow-up is recommended. Impression . 1. Acute hypoxic and hypercapnic respiratory failure secondary to multifactorial etiologies including suspected chronic obstructive pulmonary disease with acute exacerbation, non-ST myocardial infarction, and cocaine overdose. 2. Underlying chronic obstructive pulmonary disease, clinically suspected. 3. Abnormal chest x-ray with prominent interstitial markings, probably related to mild interstitial edema.improved 4. Abnormal troponin consistent with non-ST myocardial infarction. 5. Acute kidney injury-- improving 6. Abnormal LFTs. Could be related to hypoperfusion. 7. Urine drug screen positive for cocaine. 8. CT chest neg for PE 9. Arslan atelectasis 10. Delirium CT chest IMPRESSION: 1. No evidence for acute pulmonary embolus the level of the subsegmental branches. More peripheral vessels are not well assessed. 2. Are seen moderate bilateral pleural effusions are seen. 3. Lower atelectasis of the lower lobes and atelectasis of the middle lobe without obvious obstructing mass, etiology is uncertain. Of note there may be small hilar lymph nodes bilaterally that are secured by the pleural effusions and hilar infiltration. Consider further evaluation with bronchoscopy or short interval follow-up CT following resolution of the acute process to further delineate. 4. Indeterminate right adrenal nodule can be correlated with prior imaging is available otherwise close attention on follow-up is recommended. Plan . Gave patient sedation holiday, very agitated Add Haldol as needed, patient with polysubstance abuse ABG noted, Appreciate nephrology and cardiology input CTA reviewed-- will repeat CT in 2 months cont. IV steroids Cont. ABX Follow cardiology input Continue TF for nutritional support Discussed with RT and RN Total cumulative critical care time of 30 minutes, reviewing data, labs, chest x-ray, and formulating a plan TOÑA WAGONER MD May 17, 2020 08:34
[2020-05-17] MEDS: PANTOPRAZOLE IV PUSH 40 MG VIAL. IVP SCH (08:45)
[2020-05-17] MEDS: cefTRIAXone IV Push 1 GM VIAL. IVP SCH (08:45)
[2020-05-17] MEDS: hydrALAZINE 25 MG TABLET PO SCH ×2 (08:46→21:17)
[2020-05-17] MEDS: amLODIPine BESYLATE 10 MG TABLET PO SCH (08:47)
[2020-05-17] MEDS: CARVEDILOL 6.25 MG TABLET. PO SCH ×2 (08:47→16:48)
[2020-05-17] MEDS: ASPIRIN CHEWABLE 81 MG TABLET. PO SCH (08:47)
[2020-05-17] MEDS: HEPARIN for SUB-Q USE 5,000 UNIT/ML VIAL. SQ SCH ×2 (08:48→20:35)
[2020-05-17] MEDS: MIDAZOLAM 100mg/100ml NS BAG 100 ML IV PRN (08:57)
[2020-05-17] MEDS ORDERED: ATROPINE 0.5 MG/5 ML DISP.SYRINGE. IV PRN (09:45)
[2020-05-17] MEDS ORDERED: IV NORMAL SALINE 500ML BAG 500 ML IV PRN (09:45)
[2020-05-17] MEDS: DEXMEDETOMIDINE 400 MCG in IV NORMAL SALINE 100ML 96 ML IV PRN ×2 (09:54→20:28)
--- NOTE | 2020-05-17 10:33 | PDOC ---
SUBJECTIVE ROS Intubated OBJECTIVE Vital Signs Vital Signs Date Time Temp Pulse Resp B/P (MAP) Pulse Ox O2 Delivery O2 Flow Rate FiO2 05/17/20 08:47 86 114/64 05/17/20 08:00 Mechanical Ventilator 05/17/20 07:36 97 05/17/20 07:00 20 05/17/20 04:00 98.6 98.6 05/16/20 15:55 15.0 I & 0 Intake and Output 05/17/20 07:00 Intake Total 4825 ml Output Total 3140 ml Balance 1685 ml Intake Oral 207 ml IV Total 1983 ml Tube Feeding 1700 ml Other 935 ml Output Urine Total 3140 ml Gastric Drainage Total 0 ml PHYSICAL EXAM Physical Exam General : no apparent distress, Intubated HEENT-Intubated Neck supple Resp- decreased at bases Heart S1S2 Skin: warm, no rash Abdomen: soft, bowel sounds present Genitourinary: townsend + Extremities: No LE edema Neurology: sedated DIAGNOSIS/ASSESSMENT Assessment & Plan EVY - ATN , required HD, last HD was on 05/12 Improving renal function and UOP E-Lytes , acid base stable Supportive care, avoid nephrotoxins HyperKalemia- Resolved CKD - Echogenic appearing bilateral kidneys probably medical renal disease., worse No evidence of hydronephrosis. Acute Hypoxic /Hypercapnic Resp Failure- Intubated on MV COVID-19 virus infection negative 05/09 NSTEMI (non-ST elevated myocardial infarction) Cocaine Abuse-at presentation Morbid obesity ? Adrenal nodule- defer to primary COMMENT/RELEVANT DATA Meds Current Medications Medications (Trade) Dose Ordered Sig/Dario Start Time Stop Time Status Last Admin Dose Admin Acetaminophen (Tylenol Supp) 650 mg PRN Q4HRS PRN 05/08/20 16:15 Albumin Human 200 ml @ 200 mls/hr 1X PRN PRN 05/12/20 08:30 05/12/20 14:29 DC Albuterol Sulfate (Ventolin Neb Soln) 2.5 mg PRN Q4HRS PRN 05/08/20 19:00 Albuterol/ Ipratropium (Duoneb) 3 ml Q4H 05/08/20 16:15 05/08/20 18:45 DC Amlodipine Besylate (Norvasc) 10 mg DAILY 05/14/20 12:00 05/17/20 08:47 10 MG Aspirin (Aspirin Chewable) 81 mg [id number] 05/09/20 08:00 05/17/20 08:47 81 MG Aspirin (Aspirin Rectal Supp) 300 mg 1X ONCE 05/08/20 08:45 05/08/20 09:04 DC 05/08/20 10:00 300 MG Atropine Sulfate (ATROPINE 0.5mg SYRINGE) 0.5 mg PRN Q5MIN PRN 05/17/20 09:45 Carvedilol (Coreg) 6.25 mg BIDWMEALS 05/17/20 08:15 05/17/20 08:47 6.25 MG Ceftriaxone Sodium (Rocephin) 1 gm Q24H 05/09/20 08:00 05/17/20 08:45 1 GM Chlorhexidine Gluconate (Peridex) 15 ml BID 05/08/20 09:00 05/16/20 20:05 15 ML Clonidine HCl (Catapres) 0.1 mg PRN Q2HR PRN 05/09/20 14:30 05/13/20 11:34 DC 05/13/20 10:18 0.1 MG Dexmedetomidine HCl 400 mcg/ Sodium Chloride 100 ml @ 0 mls/hr CONT PRN 05/17/20 09:45 05/17/20 09:54 5.9 MLS/HR Dextrose (Dextrose 50%-Water Syringe) 12.5 gm PRN Q15MIN PRN 05/12/20 12:45 Dextrose (Iv Dextrose 5%) 250 ml PRN Q15MIN PRN 05/12/20 12:45 Enoxaparin Sodium (Lovenox 120mg Syringe) 120 mg DAILY 05/10/20 10:00 05/10/20 10:48 DC 05/10/20 10:19 120 MG Enoxaparin Sodium (Lovenox 40mg Syringe) 40 mg Q24H 05/08/20 17:00 05/10/20 09:14 DC 05/09/20 17:04 40 MG Enoxaparin Sodium (Lovenox Per Pharmacy Prophylaxis Dosing) 1 each PRN DAILY PRN 05/08/20 16:00 05/10/20 09:14 DC Enoxaparin Sodium (Lovenox Per Pharmacy Treatment Dosing) 1 each PRN DAILY PRN 05/10/20 09:30 Cancel Etomidate (Amidate) 40 mg 1X ONCE 05/08/20 07:55 05/08/20 12:05 DC 05/08/20 07:57 40 MG Fentanyl Citrate 30 ml @ 0 mls/hr CONT PRN 05/08/20 08:15 05/16/20 15:25 2.5 MLS/HR Fentanyl Citrate (Fentanyl 2ml Vial) 50 mcg PRN Q1HR PRN 05/08/20 07:45 05/08/20 12:44 50 MCG Furosemide (Lasix) 80 mg 1X ONCE 05/14/20 12:00 05/14/20 12:01 DC 05/14/20 12:03 80 MG Heparin Sodium (Porcine) (Heparin Sodium) 5,000 unit Q12HR 05/13/20 21:00 05/17/20 08:48 5,000 UNIT Heparin Sodium/ Dextrose 250 ml @ 10 mls/hr CONT PRN 05/10/20 11:00 05/13/20 13:35 DC 05/11/20 20:59 10 MLS/HR Hydralazine HCl (Apresoline Inj) 10 mg PRN Q4HRS PRN 05/16/20 12:15 05/17/20 06:38 10 MG Hydralazine HCl (Apresoline) 25 mg BID 05/16/20 21:00 05/17/20 08:46 25 MG Info (Anti-Coagulation Monitoring By Pharmacy) 1 each PRN DAILY PRN 05/12/20 09:15 05/13/20 13:35 DC Info (CONTRAST GIVEN -- Rx MONITORING) 1 each PRN DAILY PRN 05/12/20 11:45 05/14/20 11:44 DC Info (PHARMACY MONITORING -- do not chart) 1 each PRN DAILY PRN 05/13/20 12:00 UNV Insulin Human Lispro (HumaLOG) 0-5 UNITS Q6HRS 05/13/20 00:00 05/17/20 06:44 3 UNITS Iohexol (Omnipaque 350 Mg/ml) 100 ml 1X ONCE 05/12/20 11:45 05/12/20 11:46 DC 05/12/20 15:45 100 ML Labetalol HCl (Normodyne Iv Push) 10 mg PRN Q4HRS PRN 05/13/20 12:00 05/17/20 05:16 10 MG Lidocaine HCl (Buffered Lidocaine 1%) 6 ml 1X ONCE 05/11/20 14:00 05/11/20 14:01 DC 05/11/20 13:50 3 ML Methylprednisolone Sodium Succinate (SOLU-Medrol 125MG VIAL) 60 mg Q8HRS 05/08/20 14:00 05/17/20 06:32 60 MG Midazolam HCl (Versed) 5 mg PRN Q15MIN PRN 05/08/20 08:00 05/08/20 12:32 5 MG Ondansetron HCl (Zofran) 4 mg PRN Q4HRS PRN 05/08/20 16:15 Pantoprazole Sodium (PROTONIX VIAL for IV PUSH) 40 mg DAILYAC 05/08/20 11:30 05/17/20 08:45 40 MG Polyethylene Glycol (miraLAX PACKET) 17 gm PRN DAILY PRN 05/10/20 16:00 05/11/20 11:20 17 GM Propofol (Diprivan) 40 mg 1X ONCE 05/08/20 08:00 05/08/20 09:04 DC Sodium Monofluorophosphate (Fleet Adult) 133 ml PRN DAILY PRN 05/08/20 16:15 Sodium Chloride 500 ml @ 500 mls/hr 1X PRN PRN 05/17/20 09:45 Sodium Chloride (Normal Saline Flush) 10 ml 1X PRN PRN 05/12/20 08:30 05/13/20 08:29 DC Succinylcholine Chloride (Anectine) 100 mg 1X ONCE 05/08/20 07:45 05/08/20 09:04 DC 05/08/20 07:31 100 MG Lab Laboratory Tests Test 05/16/20 12:05 05/16/20 23:58 05/17/20 06:20 05/17/20 06:40 Glucose (Fingerstick) 251 mg/dL (70-99) 232 mg/dL (70-99) 218 mg/dL (70-99) Sodium Level 140 mmol/L (136-145) Potassium Level 4.5 mmol/L (3.5-5.1) Chloride Level 103 mmol/L (98-107) Carbon Dioxide Level 32 mmol/L (21-32) Anion Gap 5 (6-14) Blood Urea Nitrogen 38 mg/dL (8-26) Creatinine 1.2 mg/dL (0.7-1.3) Estimated GFR (Cockcroft-Gault) 75.8 Glucose Level 243 mg/dL (70-99) Calcium Level 8.5 mg/dL (8.5-10.1) Phosphorus Level 3.9 mg/dL (2.6-4.7) Albumin 2.4 g/dL (3.4-5.0) Test 05/17/20 07:36 O2 Saturation 95 % (92-99) Arterial Blood pH 7.39 (7.35-7.45) Arterial Blood pCO2 at Patient Temp 54 mmHg (35-46) Arterial Blood pO2 at Patient Temp 74 mmHg (75-108) Arterial Blood HCO3 32 mmol/L (21-28) Arterial Blood Base Excess 6 mmol/L (-3-3) FiO2 40 Results All relevant outside records, renal labs, imaging studies, telemetry/EKG's were reviewed. Justicifation of Admission Dx: Justifications for Admission: Justification of Admission Dx: Yes CHF: Hemodynamic Instability Respiratory Failure: Mechanical Ventilation Acute COPD Exacerbation: Acute COPD Exacerbation Altered Mental Status: Altered Mental Status ISMAEL BOOTH MD May 17, 2020 10:33
--- NOTE | 2020-05-17 13:26 | NUR ---
SS following up with discharge planning. SS reviewed pt chart and discussed with pt RN. Pt remains on the vent at this time. Pt on IV Rocephin. Pt not ready for extubation at this time. Pt's family traveled back to [place], [place] today. SS phoned and faxed referral to [facility], ; fax [phone], to check benefits. SS will continue to follow for discharge planning.
--- NOTE | 2020-05-17 14:09 | PDOC ---
BLAINE KEENE ASSEMBLER CATERPILLAR SPIDER 05/17/20 1409: CARDIO Progress Notes Date and Time Date of Service 05/17/2020 Time of Evaluation 1130 Subjective Subjective: Other (intubated) Vitals Vitals Vital Signs Date Time Temp Pulse Resp B/P (MAP) Pulse Ox O2 Delivery O2 Flow Rate FiO2 05/17/20 12:00 Mechanical Ventilator 05/17/20 12:00 81 23 111/57 (75) 99 05/17/20 08:00 98.4 98.4 05/16/20 15:55 15.0 Weight Weight [ ] Input and Output Intake and Output Intake and Output 05/17/20 07:00 Intake Total 4825 ml Output Total 3140 ml Balance 1685 ml Intake Oral 207 ml IV Total 1983 ml Tube Feeding 1700 ml Other 935 ml Output Urine Total 3140 ml Gastric Drainage Total 0 ml Laboratory Labs Laboratory Tests Test 05/16/20 23:58 05/17/20 06:20 05/17/20 06:40 05/17/20 07:36 Glucose (Fingerstick) 232 mg/dL (70-99) 218 mg/dL (70-99) Sodium Level 140 mmol/L (136-145) Potassium Level 4.5 mmol/L (3.5-5.1) Chloride Level 103 mmol/L (98-107) Carbon Dioxide Level 32 mmol/L (21-32) Anion Gap 5 (6-14) Blood Urea Nitrogen 38 mg/dL (8-26) Creatinine 1.2 mg/dL (0.7-1.3) Estimated GFR (Cockcroft-Gault) 75.8 Glucose Level 243 mg/dL (70-99) Calcium Level 8.5 mg/dL (8.5-10.1) Phosphorus Level 3.9 mg/dL (2.6-4.7) Albumin 2.4 g/dL (3.4-5.0) O2 Saturation 95 % (92-99) Arterial Blood pH 7.39 (7.35-7.45) Arterial Blood pCO2 at Patient Temp 54 mmHg (35-46) Arterial Blood pO2 at Patient Temp 74 mmHg (75-108) Arterial Blood HCO3 32 mmol/L (21-28) Arterial Blood Base Excess 6 mmol/L (-3-3) FiO2 40 Test 05/17/20 12:15 Glucose (Fingerstick) 244 mg/dL (70-99) Microbiology Micro Microbiology 05/08/20 Blood Culture - Final, Complete NO GROWTH AFTER 5 DAYS Review of Systems Constitutional: yes: other (ON THE VENT SEDATED) Physical Exam Chest: Symmetric LUNGS: Other (intubated) Heart: RRR (SR with significant ectopies) Abdomen: Other (obese) Neurology: other (sedated) Assessment Assessment 1. Acute on chronic respiratory failure with AECOPD and acute CHF. remains intubated. COVID negative. No PE per pulmonary 2. NSTEMI; highest trop 1.6.likely demand mediated with above. No significant arrhythmias 3. Severe EVY: last HD was last wk. UOP much beter Cr normalized 4. Mild transaminitis: resolved 5. Leukocytosis 6. DM2: A1C 6.7. NEW? per PCP 7. Substance abuse; UDS + cocaine 8. Probable CONNER 9. Mild Cardiomyopathy: EF at 45%. No significant arrhythmia. sinus tach 10. HTN urgency: while off sedation. Recommendations 1. ASA. Avoid nephrotoxins. Remains to have accelerated HTN when weaned off sedation. Failed weaning today. Will continue current BP regimen and will adjust BP meds accordingly once extubated 2. Outp stress test. Discussed with sister in room 3. Follow pulm recs. 4. Supportive care Justicifation of Admission Dx: Justifications for Admission: Justification of Admission Dx: Yes CHF: Hemodynamic Instability Respiratory Failure: Mechanical Ventilation Acute COPD Exacerbation: Acute COPD Exacerbation Altered Mental Status: Altered Mental Status TINY MARSHALL MD 05/18/20 0921: CARDIO Progress Notes Plan Plan Late entry for 05/17/2020 Pt. seen and examined. Agree with above SOFTWARE QUALITY ENGINEER note. Plan for IV lasix given persistent pleural effusions and improved renal function. Supportive care. BLAINE KEENE APRN May 17, 2020 14:09 TINY MARSHALL MD May 18, 2020 09:21
[2020-05-17] MEDS: HALOPERIDOL LACTATE 5 MG/ML VIAL. IVP SCH ×2 (14:20→23:02)
--- NOTE | 2020-05-17 14:20 | PDOC ---
PROGRESS NOTES Chief Complaint Chief Complaint Assessment/Plan Impression: Respiratory failure requiring vent support 75% fio2 COPD ACUTE HYPOXIC / HYPERCAPNIC RESP FAILURE Slight improvement with persistent basilar density bilaterally more on the left. CXR 05/10 Screen COVID-19 virus infection neg 05/09 NSTEMI (non-ST elevated myocardial infarction) left ventricular systolic function is mildly impaired. Ejection Fraction is 45%. tricuspid regurgitation with an estimated PAP of 54 mmHg. COCAINE ABUSE, present on admit Morbid obesity EVY RENAL FX IMPROVING EVY Echogenic appearing bilateral kidneys probably medical renal disease., worse No evidence of hydronephrosis. negative COVID testing Consider further ischemic evaluation pending course of hospitalization Indeterminate right adrenal nodule can be correlated with prior imaging iF available otherwise close attention on follow-up Plan: ICU BED follow pulmonary recommendations for vent management. AC mode, remains intubated/sedated CARDIOLOGY FOLLOWING recommendations greatly appreciated. VENT SUPPORT heparin drip GI PROPHYLAXIS TAPERING IV STEROIDS covid 19 screen negative. Nephrology following cpk Echo to assess LV systolic function pending negative COVID testing review records from [facility] in [place], [place]. when available further ischemic evaluation pending course of hospitalization picc 05/10 BB moving forward with cocaine cessation counseling The patient was evaluated during the global COVID-19 pandemic, and that diagnosis was suspected/considered upon their initial presentation. Their evaluation, treatment and testing was consistent with current guidelines for patients who present with complaints or symptoms that may be related to COVID- 19. 38 MIN CC TIME VTE Prophylaxis Ordered VTE Prophylaxis Devices: Yes VTE Pharmacological Prophylaxi: Yes History of Present Illness History of Present Illness guarded prognosis still on vent labs better Vitals Vitals Vital Signs Date Time Temp Pulse Resp B/P (MAP) Pulse Ox O2 Delivery O2 Flow Rate FiO2 05/17/20 12:00 Mechanical Ventilator 05/17/20 12:00 81 23 111/57 (75) 99 05/17/20 08:00 98.4 98.4 05/16/20 15:55 15.0 Physical Exam Physical Exam Heart: RRR Abdomen: obese Neurology: SEDATED General: Cooperative, No acute distress, Other (INTUBATED AND SEDATED) Heart: Regular rate, Normal S1, Normal S2 Lungs: Other (decrease bs) Abdomen: Normal bowel sounds, Soft, No tenderness Extremities: No clubbing, No cyanosis, No edema Skin: No breakdown, No significant lesion Labs LABS Laboratory Tests Test 05/16/20 23:58 05/17/20 06:20 05/17/20 06:40 05/17/20 07:36 Glucose (Fingerstick) 232 mg/dL (70-99) 218 mg/dL (70-99) Sodium Level 140 mmol/L (136-145) Potassium Level 4.5 mmol/L (3.5-5.1) Chloride Level 103 mmol/L (98-107) Carbon Dioxide Level 32 mmol/L (21-32) Anion Gap 5 (6-14) Blood Urea Nitrogen 38 mg/dL (8-26) Creatinine 1.2 mg/dL (0.7-1.3) Estimated GFR (Cockcroft-Gault) 75.8 Glucose Level 243 mg/dL (70-99) Calcium Level 8.5 mg/dL (8.5-10.1) Phosphorus Level 3.9 mg/dL (2.6-4.7) Albumin 2.4 g/dL (3.4-5.0) O2 Saturation 95 % (92-99) Arterial Blood pH 7.39 (7.35-7.45) Arterial Blood pCO2 at Patient Temp 54 mmHg (35-46) Arterial Blood pO2 at Patient Temp 74 mmHg (75-108) Arterial Blood HCO3 32 mmol/L (21-28) Arterial Blood Base Excess 6 mmol/L (-3-3) FiO2 40 Test 05/17/20 12:15 Glucose (Fingerstick) 244 mg/dL (70-99) Assessment and Plan Assessmemt and Plan Problems Medical Problems: (1) Cocaine abuse Status: Acute (2) NSTEMI (non-ST elevated myocardial infarction) Status: Acute (3) Respiratory failure Status: Acute (4) Suspected COVID-19 virus infection Status: Acute Comment Review of Relevant I have reviewed the following items jeffrey (where applicable) has been applied. Labs Laboratory Tests Test 05/16/20 00:38 05/16/20 06:10 05/16/20 06:18 05/16/20 08:00 Glucose (Fingerstick) 201 mg/dL (70-99) 217 mg/dL (70-99) White Blood Count 8.9 x10^3/uL (4.0-11.0) Red Blood Count 5.80 x10^6/uL (4.30-5.70) Hemoglobin 13.6 g/dL (13.0-17.5) Hematocrit 43.5 % (39.0-53.0) Mean Corpuscular Volume 75 fL (79-100) Mean Corpuscular Hemoglobin 23 pg (25-35) Mean Corpuscular Hemoglobin Concent 31 g/dL (31-37) Red Cell Distribution Width 17.0 % (11.5-14.5) Platelet Count 141 x10^3/uL (140-400) Neutrophils (%) (Auto) 92 % (31-73) Lymphocytes (%) (Auto) 3 % (24-48) Monocytes (%) (Auto) 5 % (0-9) Eosinophils (%) (Auto) 0 % (0-3) Basophils (%) (Auto) 0 % (0-3) Neutrophils # (Auto) 8.2 x10^3/uL (1.8-7.7) Lymphocytes # (Auto) 0.2 x10^3/uL (1.0-4.8) Monocytes # (Auto) 0.4 x10^3/uL (0.0-1.1) Eosinophils # (Auto) 0.0 x10^3/uL (0.0-0.7) Basophils # (Auto) 0.0 x10^3/uL (0.0-0.2) Sodium Level 140 mmol/L (136-145) Potassium Level 4.8 mmol/L (3.5-5.1) Chloride Level 104 mmol/L (98-107) Carbon Dioxide Level 31 mmol/L (21-32) Anion Gap 5 (6-14) Blood Urea Nitrogen 41 mg/dL (8-26) Creatinine 1.4 mg/dL (0.7-1.3) Estimated GFR (Cockcroft-Gault) 63.4 BUN/Creatinine Ratio 29 (6-20) Glucose Level 233 mg/dL (70-99) Calcium Level 8.3 mg/dL (8.5-10.1) Total Bilirubin 0.4 mg/dL (0.2-1.0) Aspartate Amino Transf (AST/SGOT) 7 U/L (15-37) Alanine Aminotransferase (ALT/SGPT) 23 U/L (16-63) Alkaline Phosphatase 39 U/L (46-116) Total Protein 5.0 g/dL (6.4-8.2) Albumin 2.2 g/dL (3.4-5.0) Albumin/Globulin Ratio 0.8 (1.0-1.7) O2 Saturation 94 % (92-99) Arterial Blood pH 7.39 (7.35-7.45) Arterial Blood pCO2 at Patient Temp 47 mmHg (35-46) Arterial Blood pO2 at Patient Temp 68 mmHg (75-108) Arterial Blood HCO3 28 mmol/L (21-28) Arterial Blood Base Excess 2 mmol/L (-3-3) FiO2 40%+7 Test 05/16/20 12:05 05/16/20 23:58 05/17/20 06:20 05/17/20 06:40 Glucose (Fingerstick) 251 mg/dL (70-99) 232 mg/dL (70-99) 218 mg/dL (70-99) Sodium Level 140 mmol/L (136-145) Potassium Level 4.5 mmol/L (3.5-5.1) Chloride Level 103 mmol/L (98-107) Carbon Dioxide Level 32 mmol/L (21-32) Anion Gap 5 (6-14) Blood Urea Nitrogen 38 mg/dL (8-26) Creatinine 1.2 mg/dL (0.7-1.3) Estimated GFR (Cockcroft-Gault) 75.8 Glucose Level 243 mg/dL (70-99) Calcium Level 8.5 mg/dL (8.5-10.1) Phosphorus Level 3.9 mg/dL (2.6-4.7) Albumin 2.4 g/dL (3.4-5.0) Test 05/17/20 07:36 05/17/20 12:15 O2 Saturation 95 % (92-99) Arterial Blood pH 7.39 (7.35-7.45) Arterial Blood pCO2 at Patient Temp 54 mmHg (35-46) Arterial Blood pO2 at Patient Temp 74 mmHg (75-108) Arterial Blood HCO3 32 mmol/L (21-28) Arterial Blood Base Excess 6 mmol/L (-3-3) FiO2 40 Glucose (Fingerstick) 244 mg/dL (70-99) Laboratory Tests Test 05/16/20 23:58 05/17/20 06:20 05/17/20 06:40 05/17/20 07:36 Glucose (Fingerstick) 232 mg/dL (70-99) 218 mg/dL (70-99) Sodium Level 140 mmol/L (136-145) Potassium Level 4.5 mmol/L (3.5-5.1) Chloride Level 103 mmol/L (98-107) Carbon Dioxide Level 32 mmol/L (21-32) Anion Gap 5 (6-14) Blood Urea Nitrogen 38 mg/dL (8-26) Creatinine 1.2 mg/dL (0.7-1.3) Estimated GFR (Cockcroft-Gault) 75.8 Glucose Level 243 mg/dL (70-99) Calcium Level 8.5 mg/dL (8.5-10.1) Phosphorus Level 3.9 mg/dL (2.6-4.7) Albumin 2.4 g/dL (3.4-5.0) O2 Saturation 95 % (92-99) Arterial Blood pH 7.39 (7.35-7.45) Arterial Blood pCO2 at Patient Temp 54 mmHg (35-46) Arterial Blood pO2 at Patient Temp 74 mmHg (75-108) Arterial Blood HCO3 32 mmol/L (21-28) Arterial Blood Base Excess 6 mmol/L (-3-3) FiO2 40 Test 05/17/20 12:15 Glucose (Fingerstick) 244 mg/dL (70-99) Microbiology 05/08/20 Blood Culture - Final, Complete NO GROWTH AFTER 5 DAYS Medications Current Medications Propofol 50 ml @ As Directed STK-MED ONCE IV ; Start 05/08/20 at 07:33; Stop 05/08/20 at 07:33; Status DC Propofol 100 ml @ 0 mls/hr CONT PRN IV SEE PROTOCOL Last administered on 05/17/20at 09:52; Start 05/08/20 at 07:45 Fentanyl Citrate (Fentanyl 2ml Vial) 50 mcg PRN Q1HR PRN IV SEE COMMENTS Last administered on 05/08/20at 12:44; Start 05/08/20 at 07:45 Chlorhexidine Gluconate (Peridex) 15 ml BID MM Last administered on 05/16/20at 20:05; Start 05/08/20 at 09:00; Stop 05/17/20 at 10:45; Status DC Etomidate (Amidate) 20 mg 1X ONCE IV Last administered on 05/08/20at 07:30; Start 05/08/20 at 07:45; Stop 05/08/20 at 09:04; Status DC Succinylcholine Chloride (Anectine) 100 mg 1X ONCE IV Last administered on 05/08/20at 07:31; Start 05/08/20 at 07:45; Stop 05/08/20 at 09:04; Status DC Albuterol/ Ipratropium (Duoneb) 6 ml 1X ONCE NEB ; Start 05/08/20 at 07:45; Stop 05/08/20 at 09:04; Status DC Methylprednisolone Sodium Succinate (SOLU-Medrol 125MG VIAL) 125 mg 1X ONCE IV Last administered on 05/08/20at 08:31; Start 05/08/20 at 07:45; Stop 05/08/20 at 09:04; Status DC Albuterol Sulfate (Ventolin Neb Soln) 2.5 mg 1X ONCE NEB ; Start 05/08/20 at 07:45; Stop 05/08/20 at 08:56; Status DC Ceftriaxone Sodium (Rocephin) 1 gm 1X ONCE IVP Last administered on 05/08/20at 08:31; Start 05/08/20 at 07:45; Stop 05/08/20 at 09:04; Status DC Propofol (Diprivan) 40 mg 1X ONCE IV ; Start 05/08/20 at 08:00; Stop 05/08/20 at 09:04; Status DC Fentanyl Citrate 30 ml @ 0 mls/hr CONT PRN IV SEE PROTOCOL Last administered on 05/17/20at 10:54; Start 05/08/20 at 08:15 Midazolam HCl 100 ml @ 0 mls/hr CONT PRN IV SEE PROTOCOL Last administered on 05/17/20at 08:57; Start 05/08/20 at 08:15 Sodium Chloride 1,000 ml @ 1,000 mls/hr 1X ONCE IV Last administered on 05/08/20at 08:47; Start 05/08/20 at 08:30; Stop 05/08/20 at 09:29; Status DC Midazolam HCl (Versed) 5 mg 1X ONCE IV Last administered on 05/08/20at 08:33; Start 05/08/20 at 08:30; Stop 05/08/20 at 09:04; Status DC Ondansetron HCl (Zofran) 4 mg PRN Q8HRS PRN IV NAUSEA/VOMITING; Start 05/08/20 at 08:45; Stop 05/09/20 at 08:44; Status DC Aspirin (Aspirin Rectal Supp) 300 mg 1X ONCE DE Last administered on 05/08/20at 10:00; Start 05/08/20 at 08:45; Stop 05/08/20 at 09:04; Status DC Sodium Chloride (Normal Saline Flush) 3 ml QSHIFT PRN IV AFTER MEDS AND BLOOD DRAWS; Start 05/08/20 at 11:30; Stop 05/08/20 at 18:55; Status DC Sodium Chloride 1,000 ml @ 60 mls/hr [id number] IV Last administered on 05/08/20at 12:53; Start 05/08/20 at 11:24; Stop 05/08/20 at 18:55; Status DC Ondansetron HCl (Zofran) 4 mg PRN Q4HRS PRN IV NAUSEA/VOMITING; Start 05/08/20 at 11:30; Stop 05/08/20 at 18:55; Status DC Acetaminophen (Tylenol Supp) 650 mg PRN Q4HRS PRN DE TEMP OVER 100.4F OR MILD PAIN; Start 05/08/20 at 11:30; Stop 05/08/20 at 18:47; Status DC Sodium Monofluorophosphate (Fleet Adult) 133 ml PRN DAILY PRN DE CONSTIPATION; Start 05/08/20 at 11:30; Stop 05/08/20 at 18:55; Status DC Albuterol/ Ipratropium (Duoneb) 3 ml Q4H NEB ; Start 05/08/20 at 11:30; Stop 05/08/20 at 15:37; Status DC Enoxaparin Sodium (Lovenox 40mg Syringe) 40 mg DAILY SQ ; Start 05/09/20 at 09:00; Stop 05/08/20 at 18:54; Status DC Pantoprazole Sodium (PROTONIX VIAL for IV PUSH) 40 mg DAILYAC IVP Last administered on 05/17/20at 08:45; Start 05/08/20 at 11:30 Etomidate (Amidate) 40 mg 1X ONCE IV Last administered on 05/08/20at 07:57; Start 05/08/20 at 07:55; Stop 05/08/20 at 12:05; Status DC Methylprednisolone Sodium Succinate (SOLU-Medrol 125MG VIAL) 60 mg Q8HRS IV Last administered on 05/17/20at 06:32; Start 05/08/20 at 14:00 Midazolam HCl (Versed) 5 mg PRN Q15MIN PRN IV SEDATION Last administered on 05/08/20at 12:32; Start 05/08/20 at 08:00 Enoxaparin Sodium (Lovenox Per Pharmacy Prophylaxis Dosing) 1 each PRN DAILY PRN MC SEE COMMENTS; Start 05/08/20 at 16:00; Stop 05/10/20 at 09:14; Status DC Sodium Chloride (Normal Saline Flush) 3 ml QSHIFT PRN IV AFTER MEDS AND BLOOD DRAWS; Start 05/08/20 at 16:15 Sodium Chloride 1,000 ml @ 50 mls/hr Q20H IV Last administered on 05/16/20at 23:47; Start 05/08/20 at 16:01 Ondansetron HCl (Zofran) 4 mg PRN Q4HRS PRN IV NAUSEA/VOMITING; Start 05/08/20 at 16:15 Acetaminophen (Tylenol Supp) 650 mg PRN Q4HRS PRN DE TEMP OVER 100.4F OR MILD PAIN; Start 05/08/20 at 16:15 Sodium Monofluorophosphate (Fleet Adult) 133 ml PRN DAILY PRN DE CONSTIPATION; Start 05/08/20 at 16:15 Albuterol/ Ipratropium (Duoneb) 3 ml Q4H NEB ; Start 05/08/20 at 16:15; Stop 05/08/20 at 18:45; Status DC Enoxaparin Sodium (Lovenox 40mg Syringe) 40 mg Q24H SQ Last administered on 05/09/20at 17:04; Start 05/08/20 at 17:00; Stop 05/10/20 at 09:14; Status DC Ceftriaxone Sodium (Rocephin) 1 gm Q24H IVP Last administered on 05/17/20at 08:45; Start 05/09/20 at 08:00 Aspirin (Aspirin Chewable) 81 mg DAILYWBKFT PO ; Start 05/08/20 at 17:30; Stop 05/08/20 at 17:27; Status DC Aspirin (Aspirin Chewable) 81 mg DAILYWBKFT PO Last administered on 05/17/20at 08:47; Start 05/09/20 at 08:00 Albuterol Sulfate (Ventolin Neb Soln) 2.5 mg PRN Q4HRS PRN NEB SHORTNESS OF BREATH; Start 05/08/20 at 19:00 Amlodipine Besylate (Norvasc) 10 mg 1X ONCE PO Last administered on 05/09/20at 14:31; Start 05/09/20 at 14:30; Stop 05/09/20 at 14:31; Status DC Clonidine HCl (Catapres) 0.1 mg PRN Q2HR PRN PO HYPERTENSION Last administered on 05/13/20at 10:18; Start 05/09/20 at 14:30; Stop 05/13/20 at 11:34; Status DC Enoxaparin Sodium (Lovenox Per Pharmacy Treatment Dosing) 1 each PRN DAILY PRN MC SEE COMMENTS; Start 05/10/20 at 09:30; Status Cancel Enoxaparin Sodium (Lovenox 120mg Syringe) 120 mg DAILY SQ Last administered on 05/10/20at 10:19; Start 05/10/20 at 10:00; Stop 05/10/20 at 10:48; Status DC Heparin Sodium/ Dextrose 250 ml @ 10 mls/hr CONT PRN IV PER PROTOCOL Last administered on 05/11/20at 20:59; Start 05/10/20 at 11:00; Stop 05/13/20 at 13:35; Status DC Heparin Sodium (Porcine) (Heparin Sodium) 2,950 unit PRN Q6HRS PRN IV FOR UFH LEVEL LESS THAN 0.2; Start 05/10/20 at 11:00; Stop 05/13/20 at 13:36; Status DC Polyethylene Glycol (miraLAX PACKET) 17 gm PRN DAILY PRN PO CONSTIPATION Last administered on 05/11/20at 11:20; Start 05/10/20 at 16:00 Lidocaine HCl (Buffered Lidocaine 1%) 3 ml STK-MED ONCE .ROUTE ; Start 05/11/20 at 13:30; Stop 05/11/20 at 13:30; Status DC Lidocaine HCl (Buffered Lidocaine 1%) 6 ml 1X ONCE INJ Last administered on 05/11/20at 13:50; Start 05/11/20 at 14:00; Stop 05/11/20 at 14:01; Status DC Sodium Chloride 1,000 ml @ 1,000 mls/hr Q1H PRN IV hypotension; Start 05/11/20 at 15:19; Stop 05/11/20 at 21:18; Status DC Info (PHARMACY MONITORING -- do not chart) 1 each PRN DAILY PRN MC SEE COMMENTS; Start 05/11/20 at 15:30; Status Cancel Info (PHARMACY MONITORING -- do not chart) 1 each PRN DAILY PRN MC SEE COMMENTS; Start 05/11/20 at 15:30; Status UNV Sodium Chloride 1,000 ml @ 1,000 mls/hr Q1H PRN IV hypotension; Start 05/12/20 at 08:28; Stop 05/12/20 at 14:27; Status DC Albumin Human 200 ml @ 200 mls/hr 1X PRN PRN IV Hypotension; Start 05/12/20 at 08:30; Stop 05/12/20 at 14:29; Status DC Sodium Chloride (Normal Saline Flush) 10 ml 1X PRN PRN IV AP catheter pack; Start 05/12/20 at 08:30; Stop 05/13/20 at 08:29; Status DC Sodium Chloride (Normal Saline Flush) 10 ml 1X PRN PRN IV FLAP CURER catheter pack; Start 05/12/20 at 08:30; Stop 05/13/20 at 08:29; Status DC Sodium Chloride 1,000 ml @ 400 mls/hr Q2H30M PRN IV PATENCY; Start 05/12/20 at 08:28; Stop 05/12/20 at 20:27; Status DC Info (PHARMACY MONITORING -- do not chart) 1 each PRN DAILY PRN MC SEE COMMENTS; Start 05/12/20 at 08:30; Status UNV Info (PHARMACY MONITORING -- do not chart) 1 each PRN DAILY PRN MC SEE COMMENTS; Start 05/12/20 at 08:30 Info (Anti-Coagulation Monitoring By Pharmacy) 1 each PRN DAILY PRN MC SEE COMMENTS; Start 05/12/20 at 09:15; Stop 05/13/20 at 13:35; Status DC Iohexol (Omnipaque 350 Mg/ml) 100 ml 1X ONCE IV Last administered on 05/12/20at 15:45; Start 05/12/20 at 11:45; Stop 05/12/20 at 11:46; Status DC Info (CONTRAST GIVEN -- Rx MONITORING) 1 each PRN DAILY PRN MC SEE COMMENTS; Start 05/12/20 at 11:45; Stop 05/14/20 at 11:44; Status DC Insulin Human Lispro (HumaLOG) 0-5 UNITS TIDWMEALS SQ Last administered on 05/12/20at 18:16; Start 05/12/20 at 13:00; Stop 05/12/20 at 19:02; Status DC Dextrose (Dextrose 50%-Water Syringe) 12.5 gm PRN Q15MIN PRN IV SEE COMMENTS; Start 05/12/20 at 12:45 Dextrose (Iv Dextrose 5%) 250 ml PRN Q15MIN PRN IV SEE COMMENTS; Start 05/12/20 at 12:45 Insulin Human Lispro (HumaLOG) 0-5 UNITS Q6HRS SQ Last administered on 05/17/20at 12:19; Start 05/13/20 at 00:00 Labetalol HCl (Normodyne Iv Push) 10 mg PRN Q4HRS PRN IVP HYPERTENSION Last administered on 05/17/20at 05:16; Start 05/13/20 at 12:00 Sodium Chloride 1,000 ml @ 1,000 mls/hr Q1H PRN IV hypotension; Start 05/13/20 at 12:00; Stop 05/13/20 at 19:00; Status DC Sodium Chloride 1,000 ml @ 400 mls/hr Q2H30M PRN IV PATENCY; Start 05/13/20 at 12:00; Stop 05/13/20 at 19:00; Status DC Info (PHARMACY MONITORING -- do not chart) 1 each PRN DAILY PRN MC SEE COMMENTS; Start 05/13/20 at 12:00; Status UNV Info (PHARMACY MONITORING -- do not chart) 1 each PRN DAILY PRN MC SEE COMMENTS; Start 05/13/20 at 12:00; Status UNV Heparin Sodium (Porcine) (Heparin Sodium) 5,000 unit Q12HR SQ Last administered on 05/17/20at 08:48; Start 05/13/20 at 21:00 Amlodipine Besylate (Norvasc) 10 mg DAILY PO Last administered on 05/17/20at 08:47; Start 05/14/20 at 12:00 Hydralazine HCl (Apresoline Inj) 25 mg TID IVP Last administered on 05/16/20at 07:42; Start 05/14/20 at 12:00; Stop 05/16/20 at 13:17; Status DC Furosemide (Lasix) 80 mg 1X ONCE IVP Last administered on 05/14/20at 12:03; Start 05/14/20 at 12:00; Stop 05/14/20 at 12:01; Status DC Hydralazine HCl (Apresoline Inj) 10 mg PRN Q4HRS PRN IVP ELEVATED BP, SEE COMMENTS Last administered on 05/17/20at 06:38; Start 05/16/20 at 12:15 Hydralazine HCl (Apresoline) 50 mg TID PO ; Start 05/16/20 at 14:00; Stop 05/16/20 at 13:25; Status DC Carvedilol (Coreg) 12.5 mg BIDWMEALS PO ; Start 05/16/20 at 17:00; Stop 05/16/20 at 13:25; Status DC Carvedilol (Coreg) 3.125 mg BIDWMEALS PO Last administered on 05/16/20at 17:30; Start 05/16/20 at 17:00; Stop 05/17/20 at 08:15; Status DC Hydralazine HCl (Apresoline) 25 mg BID PO Last administered on 05/17/20at 08:46; Start 05/16/20 at 21:00 Carvedilol (Coreg) 6.25 mg BIDWMEALS PO Last administered on 05/17/20at 08:47; Start 05/17/20 at 08:15 Dexmedetomidine HCl 400 mcg/ Sodium Chloride 100 ml @ 0 mls/hr CONT PRN IV PER PROTOCOL Last administered on 05/17/20at 09:54; Start 05/17/20 at 09:45 Sodium Chloride 500 ml @ 500 mls/hr 1X PRN PRN IV PER PROTOCOL; Start 05/17/20 at 09:45 Atropine Sulfate (ATROPINE 0.5mg SYRINGE) 0.5 mg PRN Q5MIN PRN IV SEE COMMENTS; Start 05/17/20 at 09:45 Haloperidol Lactate (Haldol Inj) 5 mg Q8HRS IVP ; Start 05/17/20 at 14:00 Active Scripts Active Reported [amlodipine benazep] Unknown Dose PO Proventil Hfa (Albuterol Sulfate) 6.7 Gm Hfa.aer.ad 1 Puff INH PRN Q6HRS PRN Advair 100-50 Diskus (Fluticasone/Salmeterol) 1 Each Disk.w.dev 1 Puff IH BID Vitals/I & O Vital Sign - Last 24 Hours 05/16/20 05/16/20 05/16/20 05/16/20 15:00 15:25 15:37 15:55 Pulse 92 Resp 20 B/P (MAP) 100/53 (69) Pulse Ox 95 94 96 96 O2 Delivery Ventilator Ventilator O2 Flow Rate 15.0 15.0 05/16/20 05/16/20 05/16/20 05/16/20 16:00 16:00 17:00 17:11 Temp 98.0 98.0 Pulse 96 102 Resp 18 19 B/P (MAP) 140/73 (95) 166/81 (109) Pulse Ox 96 96 96 O2 Delivery Mechanical Ventilator Ventilator Ventilator Ventilator 05/16/20 05/16/20 05/16/20 05/16/20 17:30 18:00 19:00 19:48 Pulse 108 104 Resp 21 20 B/P (MAP) 166/81 173/102 (125) 175/100 (125) Pulse Ox 95 95 96 O2 Delivery Ventilator Ventilator Ventilator 05/16/20 05/16/20 05/16/20 05/16/20 20:00 20:00 21:00 21:04 Temp 98.9 98.9 Pulse 101 99 99 Resp 18 20 B/P (MAP) 151/84 (106) 140/83 (102) 148/83 Pulse Ox 95 97 O2 Delivery Mechanical Ventilator Ventilator Ventilator 05/16/20 05/16/20 05/16/20 05/16/20 22:00 22:18 23:00 23:59 Temp 98.6 98.6 Pulse 89 85 81 Resp 18 20 20 B/P (MAP) 105/67 (80) 118/63 (81) 113/66 (82) Pulse Ox 96 95 96 97 O2 Delivery Ventilator Ventilator Ventilator Ventilator 05/16/20 05/17/20 05/17/20 05/17/20 23:59 00:50 01:00 02:00 Pulse 99 101 Resp 20 24 B/P (MAP) 157/84 (108) 165/98 (120) Pulse Ox 98 98 98 O2 Delivery Mechanical Ventilator Ventilator Ventilator Ventilator 05/17/20 05/17/20 05/17/20 05/17/20 03:00 03:08 04:00 04:00 Temp 98.6 98.6 Pulse 99 89 Resp 18 18 B/P (MAP) 157/91 (113) 139/81 (100) Pulse Ox 98 99 98 O2 Delivery Ventilator Ventilator Ventilator Mechanical Ventilator 05/17/20 05/17/20 05/17/20 05/17/20 05:00 05:16 06:00 06:25 Pulse 93 93 90 87 Resp 18 20 20 B/P (MAP) 171/101 (124) 171/101 193/119 (143) 166/104 (124) Pulse Ox 98 98 98 O2 Delivery Ventilator Ventilator Ventilator 05/17/20 05/17/20 05/17/20 05/17/20 06:38 07:00 07:36 08:00 Pulse 87 90 Resp 20 B/P (MAP) 166/104 178/98 (124) Pulse Ox 98 97 O2 Delivery Ventilator Ventilator Mechanical Ventilator 05/17/20 05/17/20 05/17/20 05/17/20 08:00 08:46 08:47 08:47 Temp 98.4 98.4 Pulse 83 83 86 86 Resp 22 B/P (MAP) 114/64 (81) 114/64 114/64 114/64 Pulse Ox 97 O2 Delivery Ventilator 05/17/20 05/17/20 05/17/20 05/17/20 09:00 10:00 10:54 11:00 Pulse 95 82 75 Resp 20 21 B/P (MAP) 173/91 (118) 113/58 (76) 106/54 (71) Pulse Ox 98 97 97 O2 Delivery Ventilator Ventilator Ventilator Ventilator 05/17/20 05/17/20 05/17/20 05/17/20 11:46 11:48 12:00 12:00 Pulse 81 Resp 23 B/P (MAP) 111/57 (75) Pulse Ox 98 99 O2 Delivery Ventilator Ventilator Ventilator Mechanical Ventilator Intake and Output 05/16/20 05/16/20 05/17/20 15:00 23:00 07:00 Intake Total 340 ml 2166 ml 2319 ml Output Total 800 ml 1410 ml 930 ml Balance -460 ml 756 ml 1389 ml SNAGEETA SUERO MD May 17, 2020:20
[2020-05-17] MEDS ORDERED: FUROSEMIDE 40 MG/4 ML VIAL. IVP ONE (17:30)
[2020-05-17] MEDS: IV NORMAL SALINE 1000ML BAG 1,000 ML IV SCH (20:28)
[2020-05-18] VITALS (22 sets, daily range): BP systolic 119–203; BP diastolic 4–110
[2020-05-18] MEDS: PROPOFOL 100 ML IV PRN ×2 (00:11→04:04)
[2020-05-18] MEDS: INSULIN LISPRO 300 UNITS/3 ML VIAL. SQ SCH ×5 (00:12→23:45)
[2020-05-18] MEDS: DEXMEDETOMIDINE 400 MCG in IV NORMAL SALINE 100ML 96 ML IV PRN (04:06)
[2020-05-18] MEDS: methylPREDNISolone SOD SUCC PF 125 MG/2 ML VIAL. IV SCH ×3 (06:06→22:06)
[2020-05-18] MEDS: HALOPERIDOL LACTATE 5 MG/ML VIAL. IVP SCH ×2 (06:07→14:00)
[2020-05-18] MEDS: hydrALAZINE 20 MG/ML VIAL. IVP PRN ×3 (06:09→20:48)
[2020-05-18] MEDS: PANTOPRAZOLE IV PUSH 40 MG VIAL. IVP SCH (08:03)
[2020-05-18] MEDS: ASPIRIN CHEWABLE 81 MG TABLET. PO SCH (08:03)
[2020-05-18] MEDS: CARVEDILOL 6.25 MG TABLET. PO SCH ×2 (08:04→18:24)
[2020-05-18] MEDS: hydrALAZINE 25 MG TABLET PO SCH ×2 (08:09→21:00)
[2020-05-18] MEDS: cefTRIAXone IV Push 1 GM VIAL. IVP SCH (08:10)
[2020-05-18] MEDS: amLODIPine BESYLATE 10 MG TABLET PO SCH (08:12)
[2020-05-18] MEDS: HEPARIN for SUB-Q USE 5,000 UNIT/ML VIAL. SQ SCH ×2 (08:14→20:52)
[2020-05-18 08:16] LABS: BASE EXCESS ABG 5 mmol/L (-3-3); HCO3 ABG 30 mmol/L (21-28); PCO2 ABG 48 mmHg (35-46); PO2 ABG 69 mmHg (75-108); SAT O2 ABG 93 % (92-99)
[2020-05-18] MEDS ORDERED: FUROSEMIDE 40 MG/4 ML VIAL. IVP SCH (09:00)
[2020-05-18 09:15] LABS: FIO2 ABG 40
--- NOTE | 2020-05-18 09:31 | PDOC ---
PULMONARY PROGRESS NOTES Subjective Patient did well on pressure support ventilation Vitals Vital Signs Date Time Temp Pulse Resp B/P (MAP) Pulse Ox O2 Delivery O2 Flow Rate FiO2 05/18/20 08:12 203/106 05/18/20 08:04 97 Ventilator 05/18/20 07:00 91 24 05/18/20 04:52 15.0 05/18/20 04:00 99.0 99.0 Lungs: Other (decrease bs) Cardiovascular: S1 Abdomen: Soft, Other (obese) Extremities: Other (BLE +1) Skin: Warm, Dry Labs Laboratory Tests Test 05/16/20 12:05 05/16/20 23:58 05/17/20 06:20 05/17/20 06:40 Glucose (Fingerstick) 251 mg/dL (70-99) 232 mg/dL (70-99) 218 mg/dL (70-99) Sodium Level 140 mmol/L (136-145) Potassium Level 4.5 mmol/L (3.5-5.1) Chloride Level 103 mmol/L (98-107) Carbon Dioxide Level 32 mmol/L (21-32) Anion Gap 5 (6-14) Blood Urea Nitrogen 38 mg/dL (8-26) Creatinine 1.2 mg/dL (0.7-1.3) Estimated GFR (Cockcroft-Gault) 75.8 Glucose Level 243 mg/dL (70-99) Calcium Level 8.5 mg/dL (8.5-10.1) Phosphorus Level 3.9 mg/dL (2.6-4.7) Albumin 2.4 g/dL (3.4-5.0) Test 05/17/20 07:36 05/17/20 12:15 05/17/20 18:05 05/18/20 00:09 O2 Saturation 95 % (92-99) Arterial Blood pH 7.39 (7.35-7.45) Arterial Blood pCO2 at Patient Temp 54 mmHg (35-46) Arterial Blood pO2 at Patient Temp 74 mmHg (75-108) Arterial Blood HCO3 32 mmol/L (21-28) Arterial Blood Base Excess 6 mmol/L (-3-3) FiO2 40 Glucose (Fingerstick) 244 mg/dL (70-99) 255 mg/dL (70-99) 269 mg/dL (70-99) Test 05/18/20 06:13 72/20 08:00 Glucose (Fingerstick) 239 mg/dL (70-99) O2 Saturation 93 % (92-99) Arterial Blood pH 7.42 (7.35-7.45) Arterial Blood pCO2 at Patient Temp 48 mmHg (35-46) Arterial Blood pO2 at Patient Temp 69 mmHg (75-108) Arterial Blood HCO3 30 mmol/L (21-28) Arterial Blood Base Excess 5 mmol/L (-3-3) FiO2 40 Laboratory Tests Test 05/17/20 12:15 05/17/20 18:05 05/18/20 00:09 05/18/20 06:13 Glucose (Fingerstick) 244 mg/dL (70-99) 255 mg/dL (70-99) 269 mg/dL (70-99) 239 mg/dL (70-99) Test 05/18/20 08:00 O2 Saturation 93 % (92-99) Arterial Blood pH 7.42 (7.35-7.45) Arterial Blood pCO2 at Patient Temp 48 mmHg (35-46) Arterial Blood pO2 at Patient Temp 69 mmHg (75-108) Arterial Blood HCO3 30 mmol/L (21-28) Arterial Blood Base Excess 5 mmol/L (-3-3) FiO2 40 Medications Active Scripts Medications Dose Route/Sig Max Daily Dose Days Date Category [amlodipine benazep] Unknown Dose PO 05/08/20 Reported Proventil Hfa (Albuterol Sulfate) 6.7 Gm Hfa.aer.ad 1 Puff INH PRN Q6HRS PRN 05/08/20 Reported Advair 100-50 Diskus (Fluticasone/Salmeterol) 1 Each Disk.w.dev 1 Puff IH BID 05/08/20 Reported Comments Chest x-ray 05/17 reviewed CTA chest IMPRESSION: 1. No evidence for acute pulmonary embolus the level of the subsegmental branches. More peripheral vessels are not well assessed. 2. Are seen moderate bilateral pleural effusions are seen. 3. Lower atelectasis of the lower lobes and atelectasis of the middle lobe without obvious obstructing mass, etiology is uncertain. Of note there may be small hilar lymph nodes bilaterally that are secured by the pleural effusions and hilar infiltration. Consider further evaluation with bronchoscopy or short interval follow-up CT following resolution of the acute process to further delineate. 4. Indeterminate right adrenal nodule can be correlated with prior imaging is available otherwise close attention on follow-up is recommended. Impression . 1. Acute hypoxic and hypercapnic respiratory failure secondary to multifactorial etiologies including suspected chronic obstructive pulmonary disease with acute exacerbation, non-ST myocardial infarction, and cocaine overdose. 2. Underlying chronic obstructive pulmonary disease, clinically suspected. 3. Abnormal chest x-ray with prominent interstitial markings, probably related to mild interstitial edema.improved 4. Abnormal troponin consistent with non-ST myocardial infarction. 5. Acute kidney injury-- improving 6. Abnormal LFTs. Could be related to hypoperfusion. 7. Urine drug screen positive for cocaine. 8. CT chest neg for PE 9. Arslan atelectasis 10. Delirium CT chest IMPRESSION: 1. No evidence for acute pulmonary embolus the level of the subsegmental branches. More peripheral vessels are not well assessed. 2. Are seen moderate bilateral pleural effusions are seen. 3. Lower atelectasis of the lower lobes and atelectasis of the middle lobe without obvious obstructing mass, etiology is uncertain. Of note there may be small hilar lymph nodes bilaterally that are secured by the pleural effusions and hilar infiltration. Consider further evaluation with bronchoscopy or short interval follow-up CT following resolution of the acute process to further delineate. 4. Indeterminate right adrenal nodule can be correlated with prior imaging is available otherwise close attention on follow-up is recommended. Plan . Did well on pressure support of 5, will proceed with extubation. Add Haldol as needed, patient with polysubstance abuse ABG noted, on trial Appreciate nephrology and cardiology input CTA reviewed-- will repeat CT in 2 months cont. IV steroids Cont. ABX Follow cardiology input Continue TF for nutritional support Discussed with RT and RN Total cumulative critical care time of 30 minutes, reviewing data, labs, chest x-ray, and formulating a plan TOÑA WAGONER MD May 18, 2020 09:31
--- NOTE | 2020-05-18 10:17 | NUR ---
SS following up with discharge planning. SS reviewed pt chart and discussed with pt RN. Pt on CPAP trial now. Blood gases being tested. Pt is on IV Lasix and IV Rocephin. Pt COVID19 negative. Pt accepted at [facility] and has insurance authorization if needed. SS will continue to follow for discharge planning.
[2020-05-18 10:19] LABS: BASE EXCESS ABG 8 mmol/L (-3-3); HCO3 ABG 34 mmol/L (21-28); PCO2 ABG 50 mmHg (35-46); PO2 ABG 69 mmHg (75-108); SAT O2 ABG 94 % (92-99)
--- NOTE | 2020-05-18 10:20 | PDOC ---
SUBJECTIVE ROS Intubated , currently undergoing weaning trial, Awake OBJECTIVE Vital Signs Vital Signs Date Time Temp Pulse Resp B/P (MAP) Pulse Ox O2 Delivery O2 Flow Rate FiO2 05/18/20 08:12 203/106 05/18/20 08:04 97 Ventilator 05/18/20 07:00 91 24 05/18/20 04:52 15.0 05/18/20 04:00 99.0 99.0 I & 0 Intake and Output 05/18/20 07:00 Intake Total 4775.11 ml Output Total 4935 ml Balance -159.89 ml Intake Oral 90 ml IV Total 1916.11 ml Tube Feeding 1888 ml Other 881 ml Output Urine Total 4935 ml Gastric Drainage Total 0 ml PHYSICAL EXAM Physical Exam General : no apparent distress, Intubated HEENT-Intubated Neck supple Resp- decreased at bases Heart S1S2 Skin: warm, no rash Abdomen: soft, bowel sounds present Genitourinary: townsend + Extremities: No LE edema Neurology: awake DIAGNOSIS/ASSESSMENT Assessment & Plan EVY - ATN , required HD, last HD was on 05/12 Improving renal function and UOP , No labs this am On lasix IV per Pulm- Monitor renal function E-Lytes , acid base stable Supportive care, avoid nephrotoxins HyperKalemia- Resolved CKD - Echogenic appearing bilateral kidneys probably medical renal disease., worse No evidence of hydronephrosis. Acute Hypoxic /Hypercapnic Resp Failure- Intubated on MV COVID-19 virus infection negative 05/09 NSTEMI (non-ST elevated myocardial infarction) Cocaine Abuse-at presentation Morbid obesity ? Adrenal nodule- defer to primary COMMENT/RELEVANT DATA Meds Current Medications Medications (Trade) Dose Ordered Sig/Dario Start Time Stop Time Status Last Admin Dose Admin Acetaminophen (Tylenol Supp) 650 mg PRN Q4HRS PRN 05/08/20 16:15 Albumin Human 200 ml @ 200 mls/hr 1X PRN PRN 05/12/20 08:30 05/12/20 14:29 DC Albuterol Sulfate (Ventolin Neb Soln) 2.5 mg PRN Q4HRS PRN 05/08/20 19:00 Albuterol/ Ipratropium (Duoneb) 3 ml Q4H 05/08/20 16:15 05/08/20 18:45 DC Amlodipine Besylate (Norvasc) 10 mg DAILY 05/14/20 12:00 05/18/20 08:12 10 MG Aspirin (Aspirin Chewable) 81 mg DAILYWBKFT 05/09/20 08:00 05/18/20 08:03 81 MG Aspirin (Aspirin Rectal Supp) 300 mg 1X ONCE 05/08/20 08:45 05/08/20 09:04 DC 05/08/20 10:00 300 MG Atropine Sulfate (ATROPINE 0.5mg SYRINGE) 0.5 mg PRN Q5MIN PRN 05/17/20 09:45 Carvedilol (Coreg) 6.25 mg BIDWMEALS 05/17/20 08:15 05/18/20 08:04 6.25 MG Ceftriaxone Sodium (Rocephin) 1 gm Q24H 05/09/20 08:00 05/18/20 08:10 1 GM Chlorhexidine Gluconate (Peridex) 15 ml BID 05/08/20 09:00 05/17/20 10:45 DC 05/16/20 20:05 15 ML Clonidine HCl (Catapres) 0.1 mg PRN Q2HR PRN 05/09/20 14:30 05/13/20 11:34 DC 05/13/20 10:18 0.1 MG Dexmedetomidine HCl 400 mcg/ Sodium Chloride 100 ml @ 0 mls/hr CONT PRN 05/17/20 09:45 05/18/20 04:06 11.7 MLS/HR Dextrose (Dextrose 50%-Water Syringe) 12.5 gm PRN Q15MIN PRN 05/12/20 12:45 Dextrose (Iv Dextrose 5%) 250 ml PRN Q15MIN PRN 05/12/20 12:45 Enoxaparin Sodium (Lovenox 120mg Syringe) 120 mg DAILY 05/10/20 10:00 05/10/20 10:48 DC 05/10/20 10:19 120 MG Enoxaparin Sodium (Lovenox 40mg Syringe) 40 mg Q24H 05/08/20 17:00 05/10/20 09:14 DC 05/09/20 17:04 40 MG Enoxaparin Sodium (Lovenox Per Pharmacy Prophylaxis Dosing) 1 each PRN DAILY PRN 05/08/20 16:00 05/10/20 09:14 DC Enoxaparin Sodium (Lovenox Per Pharmacy Treatment Dosing) 1 each PRN DAILY PRN 05/10/20 09:30 Cancel Etomidate (Amidate) 40 mg 1X ONCE 05/08/20 07:55 05/08/20 12:05 DC 05/08/20 07:57 40 MG Fentanyl Citrate 30 ml @ 0 mls/hr CONT PRN 05/08/20 08:15 05/18/20 04:52 1.25 MLS/HR Fentanyl Citrate (Fentanyl 2ml Vial) 50 mcg PRN Q1HR PRN 05/08/20 07:45 05/08/20 12:44 50 MCG Furosemide (Lasix) 40 mg DAILY 05/18/20 09:00 05/18/20 08:03 40 MG Haloperidol Lactate (Haldol Inj) 5 mg Q8HRS 05/17/20 14:00 05/18/20 06:07 5 MG Heparin Sodium (Porcine) (Heparin Sodium) 5,000 unit Q12HR 05/13/20 21:00 05/18/20 08:14 5,000 UNIT Heparin Sodium/ Dextrose 250 ml @ 10 mls/hr CONT PRN 05/10/20 11:00 05/13/20 13:35 DC 05/11/20 20:59 10 MLS/HR Hydralazine HCl (Apresoline Inj) 10 mg PRN Q4HRS PRN 05/16/20 12:15 05/18/20 06:09 10 MG Hydralazine HCl (Apresoline) 25 mg BID 05/16/20 21:00 05/18/20 08:09 25 MG Info (Anti-Coagulation Monitoring By Pharmacy) 1 each PRN DAILY PRN 05/12/20 09:15 05/13/20 13:35 DC Info (CONTRAST GIVEN -- Rx MONITORING) 1 each PRN DAILY PRN 05/12/20 11:45 05/14/20 11:44 DC Info (PHARMACY MONITORING -- do not chart) 1 each PRN DAILY PRN 05/13/20 12:00 UNV Insulin Glargine (Lantus Syringe) 14 unit DAILY 05/18/20 10:15 UNV Insulin Human Lispro (HumaLOG) 0-5 UNITS Q6HRS 05/13/20 00:00 05/18/20 06:15 3 UNITS Iohexol (Omnipaque 350 Mg/ml) 100 ml 1X ONCE 05/12/20 11:45 05/12/20 11:46 DC 05/12/20 15:45 100 ML Labetalol HCl (Normodyne Iv Push) 10 mg PRN Q4HRS PRN 05/13/20 12:00 05/17/20 05:16 10 MG Lidocaine HCl (Buffered Lidocaine 1%) 6 ml 1X ONCE 05/11/20 14:00 05/11/20 14:01 DC 05/11/20 13:50 3 ML Methylprednisolone Sodium Succinate (SOLU-Medrol 125MG VIAL) 60 mg Q8HRS 05/08/20 14:00 05/18/20 06:06 60 MG Midazolam HCl (Versed) 5 mg PRN Q15MIN PRN 05/08/20 08:00 05/08/20 12:32 5 MG Ondansetron HCl (Zofran) 4 mg PRN Q4HRS PRN 05/08/20 16:15 Pantoprazole Sodium (PROTONIX VIAL for IV PUSH) 40 mg DAILYAC 05/08/20 11:30 05/18/20 08:03 40 MG Polyethylene Glycol (miraLAX PACKET) 17 gm PRN DAILY PRN 05/10/20 16:00 05/11/20 11:20 17 GM Propofol (Diprivan) 40 mg 1X ONCE 05/08/20 08:00 05/08/20 09:04 DC Sodium Monofluorophosphate (Fleet Adult) 133 ml PRN DAILY PRN 05/08/20 16:15 Sodium Chloride 500 ml @ 500 mls/hr 1X PRN PRN 05/17/20 09:45 Sodium Chloride (Normal Saline Flush) 10 ml 1X PRN PRN 05/12/20 08:30 05/13/20 08:29 DC Succinylcholine Chloride (Anectine) 100 mg 1X ONCE 05/08/20 07:45 05/08/20 09:04 DC 05/08/20 07:31 100 MG Lab Laboratory Tests Test 05/17/20 12:15 05/17/20 18:05 05/18/20 00:09 05/18/20 06:13 Glucose (Fingerstick) 244 mg/dL (70-99) 255 mg/dL (70-99) 269 mg/dL (70-99) 239 mg/dL (70-99) Test 05/18/20 08:00 O2 Saturation 93 % (92-99) Arterial Blood pH 7.42 (7.35-7.45) Arterial Blood pCO2 at Patient Temp 48 mmHg (35-46) Arterial Blood pO2 at Patient Temp 69 mmHg (75-108) Arterial Blood HCO3 30 mmol/L (21-28) Arterial Blood Base Excess 5 mmol/L (-3-3) FiO2 40 Results All relevant outside records, renal labs, imaging studies, telemetry/EKG's were reviewed. Justicifation of Admission Dx: Justifications for Admission: Justification of Admission Dx: Yes CHF: Hemodynamic Instability Respiratory Failure: Mechanical Ventilation Acute COPD Exacerbation: Acute COPD Exacerbation Altered Mental Status: Altered Mental Status ISMAEL BOOTH MD May 18, 2020 10:20
--- NOTE | 2020-05-18 10:23 | PDOC ---
PROGRESS NOTES Chief Complaint Chief Complaint Assessment/Plan Impression: Respiratory failure requiring vent support 75% fio2 COPD ACUTE HYPOXIC / HYPERCAPNIC RESP FAILURE Slight improvement with persistent basilar density bilaterally more on the left. CXR 05/10 Screen COVID-19 virus infection neg 05/09 NSTEMI (non-ST elevated myocardial infarction) left ventricular systolic function is mildly impaired. Ejection Fraction is 45%. tricuspid regurgitation with an estimated PAP of 54 mmHg. COCAINE ABUSE, present on admit Morbid obesity EVY RENAL FX IMPROVING EVY Echogenic appearing bilateral kidneys probably medical renal disease., worse No evidence of hydronephrosis. negative COVID testing Consider further ischemic evaluation pending course of hospitalization Indeterminate right adrenal nodule can be correlated with prior imaging iF available otherwise close attention on follow-up Plan: ICU BED follow pulmonary recommendations for vent management. AC mode, remains intubated/sedated CARDIOLOGY FOLLOWING recommendations greatly appreciated. VENT SUPPORT heparin drip GI PROPHYLAXIS TAPERING IV STEROIDS covid 19 screen negative. Nephrology following cpk Echo to assess LV systolic function pending negative COVID testing review records from [facility] in [place], [place]. when available further ischemic evaluation pending course of hospitalization picc 05/10 BB moving forward with cocaine cessation counseling The patient was evaluated during the global COVID-19 pandemic, and that diagnosis was suspected/considered upon their initial presentation. Their evaluation, treatment and testing was consistent with current guidelines for patients who present with complaints or symptoms that may be related to COVID- 19. 38 MIN CC TIME VTE Prophylaxis Ordered VTE Prophylaxis Devices: Yes VTE Pharmacological Prophylaxi: Yes History of Present Illness History of Present Illness much better today calm on CPAP trial , family is in room, and coaching him ABG reviewed, 7.45, 60/50 should be able to try to extubate today Vitals Vitals Vital Signs Date Time Temp Pulse Resp B/P (MAP) Pulse Ox O2 Delivery O2 Flow Rate FiO2 05/18/20 08:12 203/106 05/18/20 08:04 97 Ventilator 05/18/20 07:00 91 24 05/18/20 04:52 15.0 05/18/20 04:00 99.0 99.0 Physical Exam Physical Exam Heart: RRR Abdomen: obese Neurology: SEDATED General: Cooperative, No acute distress, Other (INTUBATED AND SEDATED) Heart: Regular rate, Normal S1, Normal S2 Lungs: Other (decrease bs) Abdomen: Normal bowel sounds, Soft, No tenderness Extremities: No clubbing, No cyanosis, No edema Skin: No breakdown, No significant lesion Labs LABS Laboratory Tests Test 05/17/20 12:15 05/17/20 18:05 05/18/20 00:09 05/18/20 06:13 Glucose (Fingerstick) 244 mg/dL (70-99) 255 mg/dL (70-99) 269 mg/dL (70-99) 239 mg/dL (70-99) Test 05/18/20 08:00 O2 Saturation 93 % (92-99) Arterial Blood pH 7.42 (7.35-7.45) Arterial Blood pCO2 at Patient Temp 48 mmHg (35-46) Arterial Blood pO2 at Patient Temp 69 mmHg (75-108) Arterial Blood HCO3 30 mmol/L (21-28) Arterial Blood Base Excess 5 mmol/L (-3-3) FiO2 40 Assessment and Plan Assessmemt and Plan Problems Medical Problems: (1) Cocaine abuse Status: Acute (2) NSTEMI (non-ST elevated myocardial infarction) Status: Acute (3) Respiratory failure Status: Acute (4) Suspected COVID-19 virus infection Status: Acute Comment Review of Relevant I have reviewed the following items jeffrey (where applicable) has been applied. Labs Laboratory Tests Test 05/16/20 12:05 05/16/20 23:58 05/17/20 06:20 05/17/20 06:40 Glucose (Fingerstick) 251 mg/dL (70-99) 232 mg/dL (70-99) 218 mg/dL (70-99) Sodium Level 140 mmol/L (136-145) Potassium Level 4.5 mmol/L (3.5-5.1) Chloride Level 103 mmol/L (98-107) Carbon Dioxide Level 32 mmol/L (21-32) Anion Gap 5 (6-14) Blood Urea Nitrogen 38 mg/dL (8-26) Creatinine 1.2 mg/dL (0.7-1.3) Estimated GFR (Cockcroft-Gault) 75.8 Glucose Level 243 mg/dL (70-99) Calcium Level 8.5 mg/dL (8.5-10.1) Phosphorus Level 3.9 mg/dL (2.6-4.7) Albumin 2.4 g/dL (3.4-5.0) Test 05/17/20 07:36 05/17/20 12:15 05/17/20 18:05 05/18/20 00:09 O2 Saturation 95 % (92-99) Arterial Blood pH 7.39 (7.35-7.45) Arterial Blood pCO2 at Patient Temp 54 mmHg (35-46) Arterial Blood pO2 at Patient Temp 74 mmHg (75-108) Arterial Blood HCO3 32 mmol/L (21-28) Arterial Blood Base Excess 6 mmol/L (-3-3) FiO2 40 Glucose (Fingerstick) 244 mg/dL (70-99) 255 mg/dL (70-99) 269 mg/dL (70-99) Test 05/18/20 06:13 05/18/20 08:00 Glucose (Fingerstick) 239 mg/dL (70-99) O2 Saturation 93 % (92-99) Arterial Blood pH 7.42 (7.35-7.45) Arterial Blood pCO2 at Patient Temp 48 mmHg (35-46) Arterial Blood pO2 at Patient Temp 69 mmHg (75-108) Arterial Blood HCO3 30 mmol/L (21-28) Arterial Blood Base Excess 5 mmol/L (-3-3) FiO2 40 Laboratory Tests Test 05/17/20 12:15 05/17/20 18:05 05/18/20 00:09 05/18/20 06:13 Glucose (Fingerstick) 244 mg/dL (70-99) 255 mg/dL (70-99) 269 mg/dL (70-99) 239 mg/dL (70-99) Test 05/18/20 08:00 O2 Saturation 93 % (92-99) Arterial Blood pH 7.42 (7.35-7.45) Arterial Blood pCO2 at Patient Temp 48 mmHg (35-46) Arterial Blood pO2 at Patient Temp 69 mmHg (75-108) Arterial Blood HCO3 30 mmol/L (21-28) Arterial Blood Base Excess 5 mmol/L (-3-3) FiO2 40 Microbiology 05/08/20 Blood Culture - Final, Complete NO GROWTH AFTER 5 DAYS Medications Current Medications Propofol 50 ml @ As Directed STK-MED ONCE IV ; Start 05/08/20 at 07:33; Stop at 07:33; Status DC Propofol 100 ml @ 0 mls/hr CONT PRN IV SEE PROTOCOL Last administered on 05/18/20at 04:04; Start 05/08/20 at 07:45 Fentanyl Citrate (Fentanyl 2ml Vial) 50 mcg PRN Q1HR PRN IV SEE COMMENTS Last administered on 05/08/20at 12:44; Start 05/08/20 at 07:45 Chlorhexidine Gluconate (Peridex) 15 ml BID MM Last administered on 05/16/20at 20:05; Start 05/08/20 at 09:00; Stop 05/17/20 at 10:45; Status DC Etomidate (Amidate) 20 mg 1X ONCE IV Last administered on 05/08/20at 07:30; Start 05/08/20 at 07:45; Stop 05/08/20 at 09:04; Status DC Succinylcholine Chloride (Anectine) 100 mg 1X ONCE IV Last administered on 05/08/20at 07:31; Start 05/08/20 at 07:45; Stop 05/08/20 at 09:04; Status DC Albuterol/ Ipratropium (Duoneb) 6 ml 1X ONCE NEB ; Start 05/08/20 at 07:45; Stop 05/08/20 at 09:04; Status DC Methylprednisolone Sodium Succinate (SOLU-Medrol 125MG VIAL) 125 mg 1X ONCE IV Last administered on 05/08/20at 08:31; Start 05/08/20 at 07:45; Stop 05/08/20 at 09:04; Status DC Albuterol Sulfate (Ventolin Neb Soln) 2.5 mg 1X ONCE NEB ; Start 05/08/20 at 07:45; Stop 05/08/20 at 08:56; Status DC Ceftriaxone Sodium (Rocephin) 1 gm 1X ONCE IVP Last administered on 05/08/20at 08:31; Start 05/08/20 at 07:45; Stop 05/08/20 at 09:04; Status DC Propofol (Diprivan) 40 mg 1X ONCE IV ; Start 05/08/20 at 08:00; Stop 05/08/20 at 09:04; Status DC Fentanyl Citrate 30 ml @ 0 mls/hr CONT PRN IV SEE PROTOCOL Last administered on 05/18/20at 04:52; Start 05/08/20 at 08:15 Midazolam HCl 100 ml @ 0 mls/hr CONT PRN IV SEE PROTOCOL Last administered on 05/17/20at 08:57; Start 05/08/20 at 08:15 Sodium Chloride 1,000 ml @ 1,000 mls/hr 1X ONCE IV Last administered on 05/08/20at 08:47; Start 05/08/20 at 08:30; Stop 05/08/20 at 09:29; Status DC Midazolam HCl (Versed) 5 mg 1X ONCE IV Last administered on 05/08/20at 08:33; Start 05/08/20 at 08:30; Stop 05/08/20 at 09:04; Status DC Ondansetron HCl (Zofran) 4 mg PRN Q8HRS PRN IV NAUSEA/VOMITING; Start 05/08/20 at 08:45; Stop 05/09/20 at 08:44; Status DC Aspirin (Aspirin Rectal Supp) 300 mg 1X ONCE DC Last administered on 05/08/20at 10:00; Start 05/08/20 at 08:45; Stop 05/08/20 at 09:04; Status DC Sodium Chloride (Normal Saline Flush) 3 ml QSHIFT PRN IV AFTER MEDS AND BLOOD DRAWS; Start 05/08/20 at 11:30; Stop 05/08/20 at 18:55; Status DC Sodium Chloride 1,000 ml @ 60 mls/hr [id number] IV Last administered on 05/08/20at 12:53; Start 05/08/20 at 11:24; Stop 05/08/20 at 18:55; Status DC Ondansetron HCl (Zofran) 4 mg PRN Q4HRS PRN IV NAUSEA/VOMITING; Start 05/08/20 at 11:30; Stop 05/08/20 at 18:55; Status DC Acetaminophen (Tylenol Supp) 650 mg PRN Q4HRS PRN DC TEMP OVER 100.4F OR MILD PAIN; Start 05/08/20 at 11:30; Stop 05/08/20 at 18:47; Status DC Sodium Monofluorophosphate (Fleet Adult) 133 ml PRN DAILY PRN DC CONSTIPATION; Start 05/08/20 at 11:30; Stop 05/08/20 at 18:55; Status DC Albuterol/ Ipratropium (Duoneb) 3 ml Q4H NEB ; Start 05/08/20 at 11:30; Stop 05/08/20 at 15:37; Status DC Enoxaparin Sodium (Lovenox 40mg Syringe) 40 mg DAILY SQ ; Start 05/09/20 at 09:00; Stop 05/08/20 at 18:54; Status DC Pantoprazole Sodium (PROTONIX VIAL for IV PUSH) 40 mg DAILYAC IVP Last administered on 05/18/20at 08:03; Start 05/08/20 at 11:30 Etomidate (Amidate) 40 mg 1X ONCE IV Last administered on 05/08/20at 07:57; Start 05/08/20 at 07:55; Stop 05/08/20 at 12:05; Status DC Methylprednisolone Sodium Succinate (SOLU-Medrol 125MG VIAL) 60 mg Q8HRS IV Last administered on 05/18/20at 06:06; Start 05/08/20 at 14:00 Midazolam HCl (Versed) 5 mg PRN Q15MIN PRN IV SEDATION Last administered on 05/08/20at 12:32; Start 05/08/20 at 08:00 Enoxaparin Sodium (Lovenox Per Pharmacy Prophylaxis Dosing) 1 each PRN DAILY PRN MC SEE COMMENTS; Start 05/08/20 at 16:00; Stop 05/10/20 at 09:14; Status DC Sodium Chloride (Normal Saline Flush) 3 ml QSHIFT PRN IV AFTER MEDS AND BLOOD DRAWS; Start 05/08/20 at 16:15 Sodium Chloride 1,000 ml @ 50 mls/hr Q20H IV Last administered on 05/17/20at 20:28; Start 05/08/20 at 16:01 Ondansetron HCl (Zofran) 4 mg PRN Q4HRS PRN IV NAUSEA/VOMITING; Start 05/08/20 at 16:15 Acetaminophen (Tylenol Supp) 650 mg PRN Q4HRS PRN DC TEMP OVER 100.4F OR MILD PAIN; Start 05/08/20 at 16:15 Sodium Monofluorophosphate (Fleet Adult) 133 ml PRN DAILY PRN DC CONSTIPATION; Start 05/08/20 at 16:15 Albuterol/ Ipratropium (Duoneb) 3 ml Q4H NEB ; Start 05/08/20 at 16:15; Stop 05/08/20 at 18:45; Status DC Enoxaparin Sodium (Lovenox 40mg Syringe) 40 mg Q24H SQ Last administered on 05/09/20at 17:04; Start 05/08/20 at 17:00; Stop 05/10/20 at 09:14; Status DC Ceftriaxone Sodium (Rocephin) 1 gm Q24H IVP Last administered on 05/18/20at 08:10; Start 05/09/20 at 08:00 Aspirin (Aspirin Chewable) 81 mg DAILYWBKFT PO ; Start 05/08/20 at 17:30; Stop 05/08/20 at 17:27; Status DC Aspirin (Aspirin Chewable) 81 mg DAILYWBKFT PO Last administered on 05/18/20at 08:03; Start 05/09/20 at 08:00 Albuterol Sulfate (Ventolin Neb Soln) 2.5 mg PRN Q4HRS PRN NEB SHORTNESS OF BREATH; Start 05/08/20 at 19:00 Amlodipine Besylate (Norvasc) 10 mg 1X ONCE PO Last administered on 05/09/20at 14:31; Start 05/09/20 at 14:30; Stop 05/09/20 at 14:31; Status DC Clonidine HCl (Catapres) 0.1 mg PRN Q2HR PRN PO HYPERTENSION Last administered on 05/13/20at 10:18; Start 05/09/20 at 14:30; Stop 05/13/20 at 11:34; Status DC Enoxaparin Sodium (Lovenox Per Pharmacy Treatment Dosing) 1 each PRN DAILY PRN MC SEE COMMENTS; Start 05/10/20 at 09:30; Status Cancel Enoxaparin Sodium (Lovenox 120mg Syringe) 120 mg DAILY SQ Last administered on 05/10/20at 10:19; Start 05/10/20 at 10:00; Stop 05/10/20 at 10:48; Status DC Heparin Sodium/ Dextrose 250 ml @ 10 mls/hr CONT PRN IV PER PROTOCOL Last administered on 05/11/20at 20:59; Start 05/10/20 at 11:00; Stop 05/13/20 at 13:35; Status DC Heparin Sodium (Porcine) (Heparin Sodium) 2,950 unit PRN Q6HRS PRN IV FOR UFH LEVEL LESS THAN 0.2; Start 05/10/20 at 11:00; Stop 05/13/20 at 13:36; Status DC Polyethylene Glycol (miraLAX PACKET) 17 gm PRN DAILY PRN PO CONSTIPATION Last administered on 05/11/20at 11:20; Start 05/10/20 at 16:00 Lidocaine HCl (Buffered Lidocaine 1%) 3 ml STK-MED ONCE .ROUTE ; Start 05/11/20 at 13:30; Stop 05/11/20 at 13:30; Status DC Lidocaine HCl (Buffered Lidocaine 1%) 6 ml 1X ONCE INJ Last administered on 05/11/20at 13:50; Start 05/11/20 at 14:00; Stop 05/11/20 at 14:01; Status DC Sodium Chloride 1,000 ml @ 1,000 mls/hr Q1H PRN IV hypotension; Start 05/11/20 at 15:19; Stop 05/11/20 at 21:18; Status DC Info (PHARMACY MONITORING -- do not chart) 1 each PRN DAILY PRN MC SEE COMMENTS; Start 05/11/20 at 15:30; Status Cancel Info (PHARMACY MONITORING -- do not chart) 1 each PRN DAILY PRN MC SEE COMMENTS; Start 05/11/20 at 15:30; Status UNV Sodium Chloride 1,000 ml @ 1,000 mls/hr Q1H PRN IV hypotension; Start 05/12/20 at 08:28; Stop 05/12/20 at 14:27; Status DC Albumin Human 200 ml @ 200 mls/hr 1X PRN PRN IV Hypotension; Start 05/12/20 at 08:30; Stop 05/12/20 at 14:29; Status DC Sodium Chloride (Normal Saline Flush) 10 ml 1X PRN PRN IV AP catheter pack; Start 05/12/20 at 08:30; Stop 05/13/20 at 08:29; Status DC Sodium Chloride (Normal Saline Flush) 10 ml 1X PRN PRN IV [employer]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 [employer]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[employer]IVE catheter pack; Start 05/12/20 at 08:30; Stop 05/13/20 at 08:29; Status DC Sodium Chloride 1,000 ml @ 400 mls/hr Q2H30M PRN IV PATENCY; Start 05/12/20 at 08:28; Stop 05/12/20 at 20:27; Status DC Info (PHARMACY MONITORING -- do not chart) 1 each PRN DAILY PRN MC SEE COMMENTS; Start 05/12/20 at 08:30; Status UNV Info (PHARMACY MONITORING -- do not chart) 1 each PRN DAILY PRN MC SEE COMMENT S; Start 05/12/20 at 08:30 Info (Anti-Coagulation Monitoring By Pharmacy) 1 each PRN DAILY PRN MC SEE COMMENTS; Start 05/12/20 at 09:15; Stop 05/13/20 at 13:35; Status DC Iohexol (Omnipaque 350 Mg/ml) 100 ml 1X ONCE IV Last administered on 05/12/20at 15:45; Start 05/12/20 at 11:45; Stop 05/12/20 at 11:46; Status DC Info (CONTRAST GIVEN -- Rx MONITORING) 1 each PRN DAILY PRN MC SEE COMMENTS; Start 05/12/20 at 11:45; Stop 05/14/20 at 11:44; Status DC Insulin Human Lispro (HumaLOG) 0-5 UNITS TIDWMEALS SQ Last administered on 05/12/20at 18:16; Start 05/12/20 at 13:00; Stop 05/12/20 at 19:02; Status DC Dextrose (Dextrose 50%-Water Syringe) 12.5 gm PRN Q15MIN PRN IV SEE COMMENTS; Start 05/12/20 at 12:45 Dextrose (Iv Dextrose 5%) 250 ml PRN Q15MIN PRN IV SEE COMMENTS; Start 05/12/20 at 12:45 Insulin Human Lispro (HumaLOG) 0-5 UNITS Q6HRS SQ Last administered on 05/18/20at 06:15; Start 05/13/20 at 00:00 Labetalol HCl (Normodyne Iv Push) 10 mg PRN Q4HRS PRN IVP HYPERTENSION Last administered on 05/17/20at 05:16; Start 05/13/20 at 12:00 Sodium Chloride 1,000 ml @ 1,000 mls/hr Q1H PRN IV hypotension; Start 05/13/20 at 12:00; Stop 05/13/20 at 19:00; Status DC Sodium Chloride 1,000 ml @ 400 mls/hr Q2H30M PRN IV PATENCY; Start 05/13/20 at 12:00; Stop 05/13/20 at 19:00; Status DC Info (PHARMACY MONITORING -- do not chart) 1 each PRN DAILY PRN MC SEE COMMENTS; Start 05/13/20 at 12:00; Status UNV Info (PHARMACY MONITORING -- do not chart) 1 each PRN DAILY PRN MC SEE COMMENTS; Start 05/13/20 at 12:00; Status UNV Heparin Sodium (Porcine) (Heparin Sodium) 5,000 unit Q12HR SQ Last administered on 05/18/20at 08:14; Start 05/13/20 at 21:00 Amlodipine Besylate (Norvasc) 10 mg DAILY PO Last administered on 05/18/20at 08:12; Start 05/14/20 at 12:00 Hydralazine HCl (Apresoline Inj) 25 mg TID IVP Last administered on 05/16/20at 07:42; Start 05/14/20 at 12:00; Stop 05/16/20 at 13:17; Status DC Furosemide (Lasix) 80 mg 1X ONCE IVP Last administered on 05/14/20at 12:03; Start 05/14/20 at 12:00; Stop 05/14/20 at 12:01; Status DC Hydralazine HCl (Apresoline Inj) 10 mg PRN Q4HRS PRN IVP ELEVATED BP, SEE COMMENTS Last administered on 05/18/20at 06:09; Start 05/16/20 at 12:15 Hydralazine HCl (Apresoline) 50 mg TID PO ; Start 05/16/20 at 14:00; Stop 05/16/20 at 13:25; Status DC Carvedilol (Coreg) 12.5 mg BIDWMEALS PO ; Start 05/16/20 at 17:00; Stop 05/16/20 at 13:25; Status DC Carvedilol (Coreg) 3.125 mg BIDWMEALS PO Last administered on 05/16/20at 17:30; Start 05/16/20 at 17:00; Stop 05/17/20 at 08:15; Status DC Hydralazine HCl (Apresoline) 25 mg BID PO Last administered on 05/18/20at 08:09; Start 05/16/20 at 21:00 Carvedilol (Coreg) 6.25 mg BIDWMEALS PO Last administered on 05/18/20at 08:04; Start 05/17/20 at 08:15 Dexmedetomidine HCl 400 mcg/ Sodium Chloride 100 ml @ 0 mls/hr CONT PRN IV PER PROTOCOL Last administered on 05/18/20at 04:06; Start 05/17/20 at 09:45 Sodium Chloride 500 ml @ 500 mls/hr 1X PRN PRN IV PER PROTOCOL; Start 05/17/20 at 09:45 Atropine Sulfate (ATROPINE 0.5mg SYRINGE) 0.5 mg PRN Q5MIN PRN IV SEE COMMENTS; Start 05/17/20 at 09:45 Haloperidol Lactate (Haldol Inj) 5 mg Q8HRS IVP Last administered on 05/18/20at 06:07; Start 05/17/20 at 14:00 Furosemide (Lasix) 40 mg 1X ONCE IVP Last administered on 05/17/20at 18:00; Start 05/17/20 at 17:30; Stop 05/17/20 at 17:31; Status DC Furosemide (Lasix) 40 mg DAILY IVP Last administered on 05/18/20at 08:03; Start 05/18/20 at 09:00 Active Scripts Active Reported [amlodipine benazep] Unknown Dose PO Proventil Hfa (Albuterol Sulfate) 6.7 Gm Hfa.aer.ad 1 Puff INH PRN Q6HRS PRN Advair 100-50 Diskus (Fluticasone/Salmeterol) 1 Each Disk.w.dev 1 Puff IH BID Vitals/I & O Vital Sign - Last 24 Hours 05/17/20 05/17/20 05/17/20 05/17/20 10:54 11:00 11:46 11:48 Pulse 75 Resp 19 21 B/P (MAP) 106/54 (71) Pulse Ox 97 98 O2 Delivery Ventilator Ventilator Ventilator Ventilator 05/17/20 05/17/20 05/17/20 05/17/20 12:00 12:00 13:00 14:00 Pulse 81 74 74 Resp 23 21 18 B/P (MAP) 111/57 (75) 112/58 (76) 117/60 (79) Pulse Ox 99 97 98 O2 Delivery Ventilator Mechanical Ventilator Ventilator Ventilator 05/17/20 05/17/20 05/17/20 05/17/20 15:00 15:41 16:00 16:00 Temp 98.0 98.0 Pulse 71 72 Resp 18 18 B/P (MAP) 121/62 (81) 134/69 (90) Pulse Ox 97 98 97 O2 Delivery Ventilator Ventilator Ventilator Mechanical Ventilator 05/17/20 05/17/20 05/17/20 05/17/20 16:48 16:48 17:00 18:00 Pulse 77 78 77 88 Resp 18 18 B/P (MAP) 175/107 175/107 131/64 (86) 153/86 (108) Pulse Ox 97 96 O2 Delivery Ventilator Ventilator 05/17/20 05/17/20 05/17/20 05/17/20 19:00 20:00 20:00 20:08 Temp 99.5 99.5 Pulse 84 82 Resp 20 20 B/P (MAP) 141/77 (98) 130/74 (92) Pulse Ox 96 96 98 O2 Delivery Ventilator Ventilator Mechanical Ventilator Ventilator 05/17/20 05/17/20 05/17/20 05/17/20 21:00 21:17 22:00 23:00 Pulse 77 77 80 84 Resp 18 18 18 B/P (MAP) 110/83 (92) 140/83 110/66 (81) 104/67 (79) Pulse Ox 97 97 97 O2 Delivery Ventilator Ventilator Ventilator 05/17/20 05/17/20 05/17/20 05/18/20 23:07 23:59 23:59 01:00 Temp 99.1 99.1 Pulse 73 77 Resp 18 18 B/P (MAP) 119/73 (88) 121/73 (89) Pulse Ox 97 97 96 O2 Delivery Ventilator Mechanical Ventilator Ventilator Ventilator 05/18/20 05/18/20 05/18/20 05/18/20 01:10 02:00 03:00 04:00 Pulse 82 86 Resp 18 18 B/P (MAP) 119/68 (85) 136/82 (100) Pulse Ox 98 96 96 O2 Delivery Ventilator Ventilator Ventilator Mechanical Ventilator 05/18/20 05/18/20 05/18/20 05/18/20 04:00 04:35 04:52 05:00 Temp 99.0 99.0 Pulse 90 72 Resp 22 18 18 B/P (MAP) 159/91 (113) Pulse Ox 98 94 94 97 O2 Delivery Ventilator Ventilator Ventilator O2 Flow Rate 15.0 05/18/20 05/18/20 05/18/20 05/18/20 05:20 06:00 06:09 07:00 Pulse 68 68 91 Resp 18 18 24 B/P (MAP) 172/97 (122) 172/97 169/91 (117) Pulse Ox 98 97 97 O2 Delivery Ventilator Ventilator 05/18/20 05/18/20 05/18/20 05/18/20 08:04 08:04 08:09 08:12 B/P (MAP) 203/106 203/106 203/106 Pulse Ox 97 O2 Delivery Ventilator Intake and Output 05/17/20 05/17/20 05/18/20 15:00 23:00 07:00 Intake Total 390 ml 1985.11 ml 2400 ml Output Total 1025 ml 3100 ml 810 ml Balance -635 ml -1114.89 ml 1590 ml Justicifation of Admission Dx: Justifications for Admission: Justification of Admission Dx: Yes CHF: Hemodynamic Instability Respiratory Failure: Mechanical Ventilation Acute COPD Exacerbation: Acute COPD Exacerbation Altered Mental Status: Altered Mental Status SANGEETA SUERO MD May 18, 2020 10:23
[2020-05-18 10:25] LABS: FIO2 ABG CPAP TRIAL
[2020-05-18 10:56] LABS: CALCIUM 8.2 mg/dL (8.5-10.1); CREATININE 1.2 mg/dL (0.7-1.3); GFR 75.8; MAGNESIUM 1.6 mg/dL (1.8-2.4); POTASSIUM 3.9 mmol/L (3.5-5.1)
[2020-05-18] MEDS: INSULIN GLARGINE SYRINGE. SQ SCH (11:26)
--- NOTE | 2020-05-18 12:33 | PDOC ---
B[employer] 05/18/20 1233: CARDIO Progress Notes Date and Time Date of Service 05/18/2020 Time of Evaluation 1050 Subjective Subjective: Other (intubated) Vitals Vitals Vital Signs Date Time Temp Pulse Resp B/P (MAP) Pulse Ox O2 Delivery O2 Flow Rate FiO2 05/18/20 10:26 97 Ventilator 05/18/20 08:12 203/106 05/18/20 07:00 91 24 05/18/20 04:52 15.0 05/18/20 04:00 99.0 99.0 Weight Weight [ ] Input and Output Intake and Output Intake and Output 05/18/20 07:00 Intake Total 4775.11 ml Output Total 4935 ml Balance -159.89 ml Intake Oral 90 ml IV Total 1916.11 ml Tube Feeding 1888 ml Other 881 ml Output Urine Total 4935 ml Gastric Drainage Total 0 ml Laboratory Labs Laboratory Tests Test 05/17/20 18:05 05/18/20 00:09 05/18/20 06:13 05/18/20 08:00 Glucose (Fingerstick) 255 mg/dL (70-99) 269 mg/dL (70-99) 239 mg/dL (70-99) O2 Saturation 93 % (92-99) Arterial Blood pH 7.42 (7.35-7.45) Arterial Blood pCO2 at Patient Temp 48 mmHg (35-46) Arterial Blood pO2 at Patient Temp 69 mmHg (75-108) Arterial Blood HCO3 30 mmol/L (21-28) Arterial Blood Base Excess 5 mmol/L (-3-3) FiO2 40 Test 05/18/20 09:50 05/18/20 10:35 05/18/20 11:21 O2 Saturation 94 % (92-99) Arterial Blood pH 7.45 (7.35-7.45) Arterial Blood pCO2 at Patient Temp 50 mmHg (35-46) Arterial Blood pO2 at Patient Temp 69 mmHg (75-108) Arterial Blood HCO3 34 mmol/L (21-28) Arterial Blood Base Excess 8 mmol/L (-3-3) FiO2 Cpap trial Sodium Level 138 mmol/L (136-145) Potassium Level 3.9 mmol/L (3.5-5.1) Chloride Level 98 mmol/L (98-107) Carbon Dioxide Level 36 mmol/L (21-32) Anion Gap 4 (6-14) Blood Urea Nitrogen 39 mg/dL (8-26) Creatinine 1.2 mg/dL (0.7-1.3) Estimated GFR (Cockcroft-Gault) 75.8 Glucose Level 272 mg/dL (70-99) Calcium Level 8.2 mg/dL (8.5-10.1) Magnesium Level 1.6 mg/dL (1.8-2.4) Glucose (Fingerstick) 259 mg/dL (70-99) Microbiology Micro Microbiology 05/08/20 Blood Culture - Final, Complete NO GROWTH AFTER 5 DAYS Review of Systems Constitutional: yes: other (ON THE VENT SEDATED) Physical Exam Chest: Symmetric LUNGS: Other (intubated) Heart: RRR (SR without significant ectopies) Abdomen: Other (obese) Extremities: Other (1+ bilateral LE pitting edema) Neurology: other (waking up off sedation) Assessment Assessment 1. Acute on chronic respiratory failure with AECOPD and acute CHF. remains intubated. COVID negative. No PE per pulmonary 2. NSTEMI; highest trop 1.6.likely demand mediated with above. No significant arrhythmias 3. Severe EVY: last HD was last wk. UOP much beter Cr normalized 4. Mild transaminitis: resolved 5. Leukocytosis 6. DM2: per PCP 7. Substance abuse; UDS + cocaine 8. Probable CONNER 9. Mild Cardiomyopathy: EF at 45%. No significant arrhythmia. sinus tach 10. HTN urgency: controlled 11. Protein malnutrition Recommendations 1. ASA. Avoid nephrotoxins. Off sedation on CPAP trial, BP controlled so far. Will continue current BP regimen and will adjust BP meds accordingly once extubated. Excellent UOP. Change lasix to PRN with noted contraction alkalosis 2. Outpt stress test, will need cardiology referral when back to [place]. 3. Follow pulm recs. 4. Supportive care 5. Cocaine cessation Justicifation of Admission Dx: Justifications for Admission: Justification of Admission Dx: Yes CHF: Hemodynamic Instability Respiratory Failure: Mechanical Ventilation Acute COPD Exacerbation: Acute COPD Exacerbation Altered Mental Status: Altered Mental Status TINY MARSHALL MD 05/18/20 1627: CARDIO Progress Notes Plan Plan Pt. seen and examined. Agree with above [employer] note. Supportive care from CV standpoint. Renal function improved, patient extubated today. Plan for outpt stress testing if he remains in town, otherwise, f/u with cardiology in [place]. Thanks. Pls call with questions. BLAINE KEENE APRN May 18, 2020 12:33 TINY MARSHALL MD May 18, 2020 16:27
[2020-05-18] MEDS ORDERED: FUROSEMIDE 40 MG/4 ML VIAL. IVP PRN (12:45)
--- NOTE | 2020-05-18 15:05 | NUR ---
wound care patient seen per wound care consult. see wound assessment. patient as an open and intact blister to the right thigh, the wound was cleaned and redressed with skin prep and left GLENDY. patient turned to the right side at this time, wound care will continue to f/u for changes.
[2020-05-18] MEDS: IV NORMAL SALINE 1000ML BAG 1,000 ML IV SCH (17:00)
[2020-05-18] MEDS: LABETALOL 20 MG/4 ML DISP.SYRIN. IVP PRN ×2 (17:02→22:07)
[2020-05-18] MEDS ORDERED: HALOPERIDOL LACTATE 5 MG/ML VIAL. IVP PRN (18:45)
[2020-05-19] VITALS (16 sets, daily range): BP systolic 146–179; BP diastolic 80–111
[2020-05-19] MEDS: hydrALAZINE 20 MG/ML VIAL. IVP PRN ×4 (01:26→23:07)
[2020-05-19 05:04] LABS: HEMATOCRIT 43.8 % (39.0-53.0); HEMOGLOBIN 13.7 g/dL (13.0-17.5); MEAN CORPUSCULAR HEMOGLOBIN 23 pg (25-35); MEAN CORPUSCULAR HGB CONC 31 g/dL (31-37); MEAN CORPUSCULAR VOLUME 75 fL (79-100); PLATELET COUNT 143 x10^3/uL (140-400); RED BLOOD COUNT 5.88 x10^6/uL (4.30-5.70); RED CELL DISTRIBUTION WIDTH 16.6 % (11.5-14.5); WHITE BLOOD COUNT 10.6 x10^3/uL (4.0-11.0)
[2020-05-19 05:25] LABS: ALBUMIN 2.6 g/dL (3.4-5.0); CALCIUM 8.5 mg/dL (8.5-10.1); GFR 93.5; POTASSIUM 4.3 mmol/L (3.5-5.1); TOTAL BILIRUBIN 0.6 mg/dL (0.2-1.0); TOTAL PROTEIN 5.2 g/dL (6.4-8.2)
[2020-05-19 05:29] LABS: % LYMPHS 4 % (24-48); % MONOS 3 % (0-10); % SEGS 93 % (35-66); ANISOCYTOSIS SLIGHT; HYPOCHROMIA SLIGHT; MICROCYTOSIS SLIGHT; PLT ESTIMATE ADEQUATE (ADEQUATE); TOXIC GRANULATION SLIGHT
[2020-05-19] MEDS: INSULIN LISPRO 300 UNITS/3 ML VIAL. SQ SCH ×3 (06:00→17:26)
[2020-05-19] MEDS: methylPREDNISolone SOD SUCC PF 125 MG/2 ML VIAL. IV SCH ×2 (06:19→21:38)
[2020-05-19] MEDS: PANTOPRAZOLE IV PUSH 40 MG VIAL. IVP SCH (06:56)
[2020-05-19] MEDS: ASPIRIN CHEWABLE 81 MG TABLET. PO SCH (08:00)
[2020-05-19] MEDS: CARVEDILOL 6.25 MG TABLET. PO SCH ×2 (08:00→16:54)
[2020-05-19] MEDS: cefTRIAXone IV Push 1 GM VIAL. IVP SCH (08:19)
[2020-05-19] MEDS: HEPARIN for SUB-Q USE 5,000 UNIT/ML VIAL. SQ SCH ×2 (08:28→21:43)
--- NOTE | 2020-05-19 08:56 | PDOC ---
PULMONARY PROGRESS NOTES Subjective Patient doing well not more short of air on nasal cannula oxygen Vitals Vital Signs Date Time Temp Pulse Resp B/P (MAP) Pulse Ox O2 Delivery O2 Flow Rate FiO2 05/19/20 08:00 97.6 105 20 159/106 (123) 95 Nasal Cannula 97.6 05/19/20 07:54 4.0 Lungs: Other (decrease bs) Cardiovascular: S1 Abdomen: Soft, Other (obese) Extremities: Other (BLE +1) Skin: Warm, Dry Labs Laboratory Tests Test 05/17/20 12:15 05/17/20 18:05 05/18/20 00:09 05/18/20 06:13 Glucose (Fingerstick) 244 mg/dL (70-99) 255 mg/dL (70-99) 269 mg/dL (70-99) 239 mg/dL (70-99) Test 05/18/20 08:00 05/18/20 09:50 05/18/20 10:35 05/18/20 11:21 O2 Saturation 93 % (92-99) 94 % (92-99) Arterial Blood pH 7.42 (7.35-7.45) 7.45 (7.35-7.45) Arterial Blood pCO2 at Patient Temp 48 mmHg (35-46) 50 mmHg (35-46) Arterial Blood pO2 at Patient Temp 69 mmHg (75-108) 69 mmHg (75-108) Arterial Blood HCO3 30 mmol/L (21-28) 34 mmol/L (21-28) Arterial Blood Base Excess 5 mmol/L (-3-3) 8 mmol/L (-3-3) FiO2 40 Cpap trial Sodium Level 138 mmol/L (136-145) Potassium Level 3.9 mmol/L (3.5-5.1) Chloride Level 98 mmol/L (98-107) Carbon Dioxide Level 36 mmol/L (21-32) Anion Gap 4 (6-14) Blood Urea Nitrogen 39 mg/dL (8-26) Creatinine 1.2 mg/dL (0.7-1.3) Estimated GFR (Cockcroft-Gault) 75.8 Glucose Level 272 mg/dL (70-99) Calcium Level 8.2 mg/dL (8.5-10.1) Magnesium Level 1.6 mg/dL (1.8-2.4) Glucose (Fingerstick) 259 mg/dL (70-99) Test 05/18/20 18:21 05/18/20 23:44 05/19/20 04:45 05/19/20 06:18 Glucose (Fingerstick) 154 mg/dL (70-99) 154 mg/dL (70-99) 167 mg/dL (70-99) White Blood Count 10.6 x10^3/uL (4.0-11.0) Red Blood Count 5.88 x10^6/uL (4.30-5.70) Hemoglobin 13.7 g/dL (13.0-17.5) Hematocrit 43.8 % (39.0-53.0) Mean Corpuscular Volume 75 fL (79-100) Mean Corpuscular Hemoglobin 23 pg (25-35) Mean Corpuscular Hemoglobin Concent 31 g/dL (31-37) Red Cell Distribution Width 16.6 % (11.5-14.5) Platelet Count 143 x10^3/uL (140-400) Neutrophils (%) (Auto) % (31-73) Lymphocytes (%) (Auto) % (24-48) Monocytes (%) (Auto) % (0-9) Eosinophils (%) (Auto) % (0-3) Basophils (%) (Auto) % (0-3) Neutrophils # (Auto) x10^3/uL (1.8-7.7) Lymphocytes # (Auto) x10^3/uL (1.0-4.8) Monocytes # (Auto) x10^3/uL (0.0-1.1) Eosinophils # (Auto) x10^3/uL (0.0-0.7) Basophils # (Auto) x10^3/uL (0.0-0.2) Segmented Neutrophils % 93 % (35-66) Lymphocytes % 4 % (24-48) Monocytes % 3 % (0-10) Toxic Granulation Slight Platelet Estimate Adequate (ADEQUATE) Hypochromasia Slight Anisocytosis Slight Microcytosis Slight Sodium Level 142 mmol/L (136-145) Potassium Level 4.3 mmol/L (3.5-5.1) Chloride Level 103 mmol/L (98-107) Carbon Dioxide Level 36 mmol/L (21-32) Anion Gap 3 (6-14) Blood Urea Nitrogen 36 mg/dL (8-26) Creatinine 1.0 mg/dL (0.7-1.3) Estimated GFR (Cockcroft-Gault) 93.5 BUN/Creatinine Ratio 36 (6-20) Glucose Level 176 mg/dL (70-99) Calcium Level 8.5 mg/dL (8.5-10.1) Total Bilirubin 0.6 mg/dL (0.2-1.0) Aspartate Amino Transf (AST/SGOT) 20 U/L (15-37) Alanine Aminotransferase (ALT/SGPT) 26 U/L (16-63) Alkaline Phosphatase 37 U/L (46-116) Total Protein 5.2 g/dL (6.4-8.2) Albumin 2.6 g/dL (3.4-5.0) Albumin/Globulin Ratio 1.0 (1.0-1.7) Test 05/19/20 08:18 Glucose (Fingerstick) 165 mg/dL (70-99) Laboratory Tests Test 05/18/20 09:50 05/18/20 10:35 05/18/20 11:21 05/18/20 18:21 O2 Saturation 94 % (92-99) Arterial Blood pH 7.45 (7.35-7.45) Arterial Blood pCO2 at Patient Temp 50 mmHg (35-46) Arterial Blood pO2 at Patient Temp 69 mmHg (75-108) Arterial Blood HCO3 34 mmol/L (21-28) Arterial Blood Base Excess 8 mmol/L (-3-3) FiO2 Cpap trial Sodium Level 138 mmol/L (136-145) Potassium Level 3.9 mmol/L (3.5-5.1) Chloride Level 98 mmol/L (98-107) Carbon Dioxide Level 36 mmol/L (21-32) Anion Gap 4 (6-14) Blood Urea Nitrogen 39 mg/dL (8-26) Creatinine 1.2 mg/dL (0.7-1.3) Estimated GFR (Cockcroft-Gault) 75.8 Glucose Level 272 mg/dL (70-99) Calcium Level 8.2 mg/dL (8.5-10.1) Magnesium Level 1.6 mg/dL (1.8-2.4) Glucose (Fingerstick) 259 mg/dL (70-99) 154 mg/dL (70-99) Test 05/18/20 23:44 7/3/20 04:45 05/19/20 06:18 05/19/20 08:18 Glucose (Fingerstick) 154 mg/dL (70-99) 167 mg/dL (70-99) 165 mg/dL (70-99) White Blood Count 10.6 x10^3/uL (4.0-11.0) Red Blood Count 5.88 x10^6/uL (4.30-5.70) Hemoglobin 13.7 g/dL (13.0-17.5) Hematocrit 43.8 % (39.0-53.0) Mean Corpuscular Volume 75 fL (79-100) Mean Corpuscular Hemoglobin 23 pg (25-35) Mean Corpuscular Hemoglobin Concent 31 g/dL (31-37) Red Cell Distribution Width 16.6 % (11.5-14.5) Platelet Count 143 x10^3/uL (140-400) Neutrophils (%) (Auto) % (31-73) Lymphocytes (%) (Auto) % (24-48) Monocytes (%) (Auto) % (0-9) Eosinophils (%) (Auto) % (0-3) Basophils (%) (Auto) % (0-3) Neutrophils # (Auto) x10^3/uL (1.8-7.7) Lymphocytes # (Auto) x10^3/uL (1.0-4.8) Monocytes # (Auto) x10^3/uL (0.0-1.1) Eosinophils # (Auto) x10^3/uL (0.0-0.7) Basophils # (Auto) x10^3/uL (0.0-0.2) Segmented Neutrophils % 93 % (35-66) Lymphocytes % 4 % (24-48) Monocytes % 3 % (0-10) Toxic Granulation Slight Platelet Estimate Adequate (ADEQUATE) Hypochromasia Slight Anisocytosis Slight Microcytosis Slight Sodium Level 142 mmol/L (136-145) Potassium Level 4.3 mmol/L (3.5-5.1) Chloride Level 103 mmol/L (98-107) Carbon Dioxide Level 36 mmol/L (21-32) Anion Gap 3 (6-14) Blood Urea Nitrogen 36 mg/dL (8-26) Creatinine 1.0 mg/dL (0.7-1.3) Estimated GFR (Cockcroft-Gault) 93.5 BUN/Creatinine Ratio 36 (6-20) Glucose Level 176 mg/dL (70-99) Calcium Level 8.5 mg/dL (8.5-10.1) Total Bilirubin 0.6 mg/dL (0.2-1.0) Aspartate Amino Transf (AST/SGOT) 20 U/L (15-37) Alanine Aminotransferase (ALT/SGPT) 26 U/L (16-63) Alkaline Phosphatase 37 U/L (46-116) Total Protein 5.2 g/dL (6.4-8.2) Albumin 2.6 g/dL (3.4-5.0) Albumin/Globulin Ratio 1.0 (1.0-1.7) Medications Active Scripts Medications Dose Route/Sig Max Daily Dose Days Date Category [amlodipine benazep] Unknown Dose PO 05/08/20 Reported Proventil Hfa (Albuterol Sulfate) 6.7 Gm Hfa.aer.ad 1 Puff INH PRN Q6HRS PRN 05/08/20 Reported Advair 100-50 Diskus (Fluticasone/Salmeterol) 1 Each Disk.w.dev 1 Puff IH BID 05/08/20 Reported Comments Chest x-ray 05/17 reviewed CTA chest IMPRESSION: 1. No evidence for acute pulmonary embolus the level of the subsegmental branches. More peripheral vessels are not well assessed. 2. Are seen moderate bilateral pleural effusions are seen. 3. Lower atelectasis of the lower lobes and atelectasis of the middle lobe without obvious obstructing mass, etiology is uncertain. Of note there may be small hilar lymph nodes bilaterally that are secured by the pleural effusions and hilar infiltration. Consider further evaluation with bronchoscopy or short interval follow-up CT following resolution of the acute process to further delineate. 4. Indeterminate right adrenal nodule can be correlated with prior imaging is available otherwise close attention on follow-up is recommended. Impression . 1. Acute hypoxic and hypercapnic respiratory failure secondary to multifactorial etiologies including suspected chronic obstructive pulmonary disease with acute exacerbation, non-ST myocardial infarction, and cocaine overdose. Status post extubation 7 1 2. Underlying chronic obstructive pulmonary disease, clinically suspected. 3. Abnormal chest x-ray with prominent interstitial markings, probably related to mild interstitial edema.improved 4. Abnormal troponin consistent with non-ST myocardial infarction. 5. Acute kidney injury-- improving 6. Abnormal LFTs. Could be related to hypoperfusion. 7. Urine drug screen positive for cocaine. 8. CT chest neg for PE 9. Arslan atelectasis 10. Delirium CT chest IMPRESSION: 1. No evidence for acute pulmonary embolus the level of the subsegmental branches. More peripheral vessels are not well assessed. 2. Are seen moderate bilateral pleural effusions are seen. 3. Lower atelectasis of the lower lobes and atelectasis of the middle lobe without obvious obstructing mass, etiology is uncertain. Of note there may be small hilar lymph nodes bilaterally that are secured by the pleural effusions and hilar infiltration. Consider further evaluation with bronchoscopy or short interval follow-up CT following resolution of the acute process to further delineate. 4. Indeterminate right adrenal nodule can be correlated with prior imaging is available otherwise close attention on follow-up is recommended. Plan . Did not do well with dysphasia study n.p.o. for now Okay to transfer out of the intensive care unit Up in chair Add Haldol as needed, patient with polysubstance abuse Appreciate nephrology and cardiology input CTA reviewed-- will repeat CT in 2 months cont. IV steroids Cont. ABX Follow cardiology input Discussed with RT and RN Total cumulative critical care time of 30 minutes, reviewing data, labs, chest x-ray, and formulating a plan TOÑA WAGONER MD May 19, 2020 08:56
[2020-05-19] MEDS: hydrALAZINE 25 MG TABLET PO SCH ×2 (09:00→20:54)
[2020-05-19] MEDS: amLODIPine BESYLATE 10 MG TABLET PO SCH (09:00)
[2020-05-19] MEDS: LABETALOL 20 MG/4 ML DISP.SYRIN. IVP PRN (09:04)
[2020-05-19] MEDS: INSULIN GLARGINE SYRINGE. SQ SCH (09:13)
[2020-05-19] MEDS ORDERED: ZOLPIDEM 5 MG TABLET. PO PRN (10:30)
[2020-05-19] MEDS: AMINO AC 3%/ELECTROLYTE/GLYCER 1,000 ML IV SCH ×2 (11:16→23:06)
--- NOTE | 2020-05-19 12:07 | PDOC ---
SUBJECTIVE ROS Extubated, stable OBJECTIVE Vital Signs Vital Signs Date Time Temp Pulse Resp B/P (MAP) Pulse Ox O2 Delivery O2 Flow Rate FiO2 05/19/20 11:11 104 164/93 (116) 05/19/20 09:00 22 Nasal Cannula 05/19/20 08:00 97.6 95 97.6 05/19/20 07:54 4.0 I & 0 Intake and Output 05/19/20 07:00 Intake Total 1486 ml Output Total 4905 ml Balance -3419 ml Intake Oral 0 ml IV Total 682 ml Tube Feeding 552 ml Other 252 ml Output Urine Total 4905 ml Gastric Drainage Total 0 ml PHYSICAL EXAM Physical Exam General : no apparent distress, HEENT- OM moist Neck supple Resp- decreased at bases , Non labored Heart S1S2 Skin: warm, no rash Abdomen: soft, bowel sounds present Genitourinary: townsend + Extremities: No LE edema Neurology: awake and alert DIAGNOSIS/ASSESSMENT Assessment & Plan EVY - ATN , required HD, last HD was on 05/12 Resolved with Good UOP E-Lytes , acid base stable Supportive care, avoid nephrotoxins HyperKalemia- Resolved CKD - Echogenic appearing bilateral kidneys probably medical renal disease., worse No evidence of hydronephrosis. Acute Hypoxic /Hypercapnic Resp Failure- Intubated on MV COVID-19 virus infection negative 05/09 NSTEMI (non-ST elevated myocardial infarction) Cocaine Abuse-at presentation Morbid obesity ? Adrenal nodule- defer to primary Will sign off COMMENT/RELEVANT DATA Meds Current Medications Medications (Trade) Dose Ordered Sig/Dario Start Time Stop Time Status Last Admin Dose Admin Acetaminophen (Tylenol Supp) 650 mg PRN Q4HRS PRN 05/08/20 16:15 Albumin Human 200 ml @ 200 mls/hr 1X PRN PRN 05/12/20 08:30 05/12/20 14:29 DC Albuterol Sulfate (Ventolin Neb Soln) 2.5 mg PRN Q4HRS PRN 05/08/20 19:00 Albuterol/ Ipratropium (Duoneb) 3 ml Q4H 05/08/20 16:15 05/08/20 18:45 DC Amino Acids/ Glycerin/ Electrolytes 1,000 ml @ 80 mls/hr [id number] 05/19/20 11:15 05/19/20 11:16 80 MLS/HR Amlodipine Besylate (Norvasc) 10 mg DAILY 05/14/20 12:00 05/18/20 08:12 10 MG Aspirin (Aspirin Chewable) 81 mg [id number] 05/09/20 08:00 05/18/20 08:03 81 MG Aspirin (Aspirin Rectal Supp) 300 mg 1X ONCE 05/08/20 08:45 05/08/20 09:04 DC 05/08/20 10:00 300 MG Atropine Sulfate (ATROPINE 0.5mg SYRINGE) 0.5 mg PRN Q5MIN PRN 05/17/20 09:45 Carvedilol (Coreg) 6.25 mg BIDWMEALS 05/17/20 08:15 05/18/20 18:24 6.25 MG Ceftriaxone Sodium (Rocephin) 1 gm Q24H 05/09/20 08:00 05/19/20 11:32 DC 05/19/20 08:19 1 GM Chlorhexidine Gluconate (Peridex) 15 ml BID 05/08/20 09:00 05/17/20 10:45 DC 05/16/20 20:05 15 ML Clonidine HCl (Catapres) 0.1 mg PRN Q2HR PRN 05/09/20 14:30 05/13/20 11:34 DC 05/13/20 10:18 0.1 MG Dexmedetomidine HCl 400 mcg/ Sodium Chloride 100 ml @ 0 mls/hr CONT PRN 05/17/20 09:45 05/19/20 11:32 DC 05/18/20 04:06 11.7 MLS/HR Dextrose (Dextrose 50%-Water Syringe) 12.5 gm PRN Q15MIN PRN 05/12/20 12:45 Dextrose (Iv Dextrose 5%) 250 ml PRN Q15MIN PRN 05/12/20 12:45 Enoxaparin Sodium (Lovenox 120mg Syringe) 120 mg DAILY 05/10/20 10:00 05/10/20 10:48 DC 05/10/20 10:19 120 MG Enoxaparin Sodium (Lovenox 40mg Syringe) 40 mg Q24H 05/08/20 17:00 05/10/20 09:14 DC 05/09/20 17:04 40 MG Enoxaparin Sodium (Lovenox Per Pharmacy Prophylaxis Dosing) 1 each PRN DAILY PRN 05/08/20 16:00 05/10/20 09:14 DC Enoxaparin Sodium (Lovenox Per Pharmacy Treatment Dosing) 1 each PRN DAILY PRN 05/10/20 09:30 Cancel Etomidate (Amidate) 40 mg 1X ONCE 05/08/20 07:55 05/08/20 12:05 DC 05/08/20 07:57 40 MG Fentanyl Citrate 30 ml @ 0 mls/hr CONT PRN 05/08/20 08:15 05/18/20 18:42 DC 05/18/20 04:52 1.25 MLS/HR Fentanyl Citrate (Fentanyl 2ml Vial) 50 mcg PRN Q1HR PRN 05/08/20 07:45 05/18/20 18:04 DC 05/08/20 12:44 50 MCG Furosemide (Lasix) 40 mg PRN DAILY PRN 05/18/20 12:45 Haloperidol Lactate (Haldol Inj) 5 mg PRN Q8HRS PRN 05/18/20 18:45 Heparin Sodium (Porcine) (Heparin Sodium) 5,000 unit Q12HR 05/13/20 21:00 05/19/20 08:28 5,000 UNIT Heparin Sodium/ Dextrose 250 ml @ 10 mls/hr CONT PRN 05/10/20 11:00 05/13/20 13:35 DC 05/11/20 20:59 10 MLS/HR Hydralazine HCl (Apresoline Inj) 10 mg PRN Q4HRS PRN 05/16/20 12:15 05/19/20 06:23 10 MG Hydralazine HCl (Apresoline) 25 mg BID 05/16/20 21:00 05/18/20 08:09 25 MG Info (Anti-Coagulation Monitoring By Pharmacy) 1 each PRN DAILY PRN 05/12/20 09:15 05/13/20 13:35 DC Info (CONTRAST GIVEN -- Rx MONITORING) 1 each PRN DAILY PRN 05/12/20 11:45 05/14/20 11:44 DC Info (PHARMACY MONITORING -- do not chart) 1 each PRN DAILY PRN 05/13/20 12:00 UNV Insulin Glargine (Lantus Syringe) 14 unit DAILY 05/18/20 11:00 05/19/20 09:13 14 UNIT Insulin Human Lispro (HumaLOG) 0-5 UNITS Q6HRS 05/13/20 00:00 05/18/20 06:15 3 UNITS Iohexol (Omnipaque 350 Mg/ml) 100 ml 1X ONCE 05/12/20 11:45 05/12/20 11:46 DC 05/12/20 15:45 100 ML Labetalol HCl (Normodyne Iv Push) 10 mg PRN Q4HRS PRN 05/13/20 12:00 05/19/20 09:04 10 MG Lidocaine HCl (Buffered Lidocaine 1%) 6 ml 1X ONCE 05/11/20 14:00 05/11/20 14:01 DC 05/11/20 13:50 3 ML Methylprednisolone Sodium Succinate (SOLU-Medrol 125MG VIAL) 60 mg BID 05/19/20 21:00 Midazolam HCl (Versed) 5 mg PRN Q15MIN PRN 05/08/20 08:00 05/08/20 12:32 5 MG Ondansetron HCl (Zofran) 4 mg PRN Q4HRS PRN 05/08/20 16:15 Pantoprazole Sodium (PROTONIX VIAL for IV PUSH) 40 mg DAILYAC 05/08/20 11:30 05/19/20 06:56 40 MG Polyethylene Glycol (miraLAX PACKET) 17 gm PRN DAILY PRN 05/10/20 16:00 05/11/20 11:20 17 GM Propofol (Diprivan) 40 mg 1X ONCE 05/08/20 08:00 05/08/20 09:04 DC Sodium Monofluorophosphate (Fleet Adult) 133 ml PRN DAILY PRN 05/08/20 16:15 Sodium Chloride 500 ml @ 500 mls/hr 1X PRN PRN 05/17/20 09:45 Sodium Chloride (Normal Saline Flush) 10 ml 1X PRN PRN 05/12/20 08:30 05/13/20 08:29 DC Succinylcholine Chloride (Anectine) 100 mg 1X ONCE 05/08/20 07:45 05/08/20 09:04 DC 05/08/20 07:31 100 MG Zolpidem Tartrate (Ambien) 5 mg PRN QHS PRN 05/19/20 10:30 Lab Laboratory Tests Test 05/18/20 18:21 05/18/20 23:44 05/19/20 04:45 05/19/20 06:18 Glucose (Fingerstick) 154 mg/dL (70-99) 154 mg/dL (70-99) 167 mg/dL (70-99) White Blood Count 10.6 x10^3/uL (4.0-11.0) Red Blood Count 5.88 x10^6/uL (4.30-5.70) Hemoglobin 13.7 g/dL (13.0-17.5) Hematocrit 43.8 % (39.0-53.0) Mean Corpuscular Volume 75 fL (79-100) Mean Corpuscular Hemoglobin 23 pg (25-35) Mean Corpuscular Hemoglobin Concent 31 g/dL (31-37) Red Cell Distribution Width 16.6 % (11.5-14.5) Platelet Count 143 x10^3/uL (140-400) Neutrophils (%) (Auto) % (31-73) Lymphocytes (%) (Auto) % (24-48) Monocytes (%) (Auto) % (0-9) Eosinophils (%) (Auto) % (0-3) Basophils (%) (Auto) % (0-3) Neutrophils # (Auto) x10^3/uL (1.8-7.7) Lymphocytes # (Auto) x10^3/uL (1.0-4.8) Monocytes # (Auto) x10^3/uL (0.0-1.1) Eosinophils # (Auto) x10^3/uL (0.0-0.7) Basophils # (Auto) x10^3/uL (0.0-0.2) Segmented Neutrophils % 93 % (35-66) Lymphocytes % 4 % (24-48) Monocytes % 3 % (0-10) Toxic Granulation Slight Platelet Estimate Adequate (ADEQUATE) Hypochromasia Slight Anisocytosis Slight Microcytosis Slight Sodium Level 142 mmol/L (136-145) Potassium Level 4.3 mmol/L (3.5-5.1) Chloride Level 103 mmol/L (98-107) Carbon Dioxide Level 36 mmol/L (21-32) Anion Gap 3 (6-14) Blood Urea Nitrogen 36 mg/dL (8-26) Creatinine 1.0 mg/dL (0.7-1.3) Estimated GFR (Cockcroft-Gault) 93.5 BUN/Creatinine Ratio 36 (6-20) Glucose Level 176 mg/dL (70-99) Calcium Level 8.5 mg/dL (8.5-10.1) Total Bilirubin 0.6 mg/dL (0.2-1.0) Aspartate Amino Transf (AST/SGOT) 20 U/L (15-37) Alanine Aminotransferase (ALT/SGPT) 26 U/L (16-63) Alkaline Phosphatase 37 U/L (46-116) Total Protein 5.2 g/dL (6.4-8.2) Albumin 2.6 g/dL (3.4-5.0) Albumin/Globulin Ratio 1.0 (1.0-1.7) Test 05/19/20 08:18 05/19/20 12:00 Glucose (Fingerstick) 165 mg/dL (70-99) 184 mg/dL (70-99) Results All relevant outside records, renal labs, imaging studies, telemetry/EKG's were reviewed. Justicifation of Admission Dx: Justifications for Admission: Justification of Admission Dx: Yes CHF: Hemodynamic Instability Respiratory Failure: Mechanical Ventilation Acute COPD Exacerbation: Acute COPD Exacerbation Altered Mental Status: Altered Mental Status ISMAEL BOOTH MD May 19, 2020 12:07
--- NOTE | 2020-05-19 12:59 | PDOC ---
PROGRESS NOTES Subjective Subjective Feeling better. Denied any chest pain. Objective Objective Vital Signs Date Time Temp Pulse Resp B/P (MAP) Pulse Ox O2 Delivery O2 Flow Rate FiO2 05/19/20 12:05 146/95 (112) 05/19/20 11:11 104 05/19/20 09:00 22 Nasal Cannula 05/19/20 08:00 97.6 95 97.6 05/19/20 07:54 4.0 Intake and Output 05/19/20 06:59 Intake Total 1486 ml Output Total 4905 ml Balance -3419 ml Intake Oral 0 ml IV Total 682 ml Tube Feeding 552 ml Other 252 ml Output Urine Total 4905 ml Gastric Drainage Total 0 ml Physical Exam Abdomen: Normal bowel sounds, Soft, No tenderness Heart: Regular rate, Normal S1, Normal S2 Extremities: No clubbing, No cyanosis, No edema General: Cooperative, No acute distress, Other (INTUBATED AND SEDATED) HEENT: Atraumatic, PERRLA Lungs: Clear to auscultation MUSCULOSKELETAL: No joint tenderness, No deformity Neuro: Other (SEDATED) Psych/Mental Status: Other (SEDATED) Skin: No breakdown, No significant lesion Assessment Assessment 1. Acute on chronic respiratory failure secondary to combination of AECOPD and acute on chronic systolic and diastolic HF. s/p extubation. LVEF 45%. COVID negative. Pulmonary team following. 2. NSTEMI; highest trop 1.6.likely demand mediated/type II. Telemetry did not show any significant arrhythmias. 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 3. Severe EVY: last HD was last wk, improved since admission. Nephrology team following. 4. Mild transaminitis: resolved 5. HTN urgency: Better controlled 6. DM2: per PCP 7. Substance abuse; UDS + cocaine: Advised on abstinence Plan Plan of Care Problems Medical Problems: (1) Cocaine abuse Status: Acute (2) NSTEMI (non-ST elevated myocardial infarction) Status: Acute (3) Respiratory failure Status: Acute (4) Suspected COVID-19 virus infection Status: Acute Comment Review of Relevant I have reviewed the following items jeffrey (where applicable) has been applied. Labs Laboratory Tests Test 05/18/20 18:21 05/18/20 23:44 05/19/20 04:45 05/19/20 06:18 Glucose (Fingerstick) 154 mg/dL (70-99) 154 mg/dL (70-99) 167 mg/dL (70-99) White Blood Count 10.6 x10^3/uL (4.0-11.0) Red Blood Count 5.88 x10^6/uL (4.30-5.70) Hemoglobin 13.7 g/dL (13.0-17.5) Hematocrit 43.8 % (39.0-53.0) Mean Corpuscular Volume 75 fL (79-100) Mean Corpuscular Hemoglobin 23 pg (25-35) Mean Corpuscular Hemoglobin Concent 31 g/dL (31-37) Red Cell Distribution Width 16.6 % (11.5-14.5) Platelet Count 143 x10^3/uL (140-400) Neutrophils (%) (Auto) % (31-73) Lymphocytes (%) (Auto) % (24-48) Monocytes (%) (Auto) % (0-9) Eosinophils (%) (Auto) % (0-3) Basophils (%) (Auto) % (0-3) Neutrophils # (Auto) x10^3/uL (1.8-7.7) Lymphocytes # (Auto) x10^3/uL (1.0-4.8) Monocytes # (Auto) x10^3/uL (0.0-1.1) Eosinophils # (Auto) x10^3/uL (0.0-0.7) Basophils # (Auto) x10^3/uL (0.0-0.2) Segmented Neutrophils % 93 % (35-66) Lymphocytes % 4 % (24-48) Monocytes % 3 % (0-10) Toxic Granulation Slight Platelet Estimate Adequate (ADEQUATE) Hypochromasia Slight Anisocytosis Slight Microcytosis Slight Sodium Level 142 mmol/L (136-145) Potassium Level 4.3 mmol/L (3.5-5.1) Chloride Level 103 mmol/L (98-107) Carbon Dioxide Level 36 mmol/L (21-32) Anion Gap 3 (6-14) Blood Urea Nitrogen 36 mg/dL (8-26) Creatinine 1.0 mg/dL (0.7-1.3) Estimated GFR (Cockcroft-Gault) 93.5 BUN/Creatinine Ratio 36 (6-20) Glucose Level 176 mg/dL (70-99) Calcium Level 8.5 mg/dL (8.5-10.1) Total Bilirubin 0.6 mg/dL (0.2-1.0) Aspartate Amino Transf (AST/SGOT) 20 U/L (15-37) Alanine Aminotransferase (ALT/SGPT) 26 U/L (16-63) Alkaline Phosphatase 37 U/L (46-116) Total Protein 5.2 g/dL (6.4-8.2) Albumin 2.6 g/dL (3.4-5.0) Albumin/Globulin Ratio 1.0 (1.0-1.7) Test 05/19/20 08:18 05/19/20 12:00 Glucose (Fingerstick) 165 mg/dL (70-99) 184 mg/dL (70-99) Microbiology 05/08/20 Blood Culture - Final, Complete NO GROWTH AFTER 5 DAYS Medications Current Medications Amino Acids/ Glycerin/ Electrolytes 1,000 ml @ 80 mls/hr [id number] IV Last administered on 05/19/20at 11:16; Start 05/19/20 at 11:15 Haloperidol Lactate (Haldol Inj) 5 mg PRN Q8HRS PRN IVP DELIRIUM; Start 05/18/20 at 18:45 Methylprednisolone Sodium Succinate (SOLU-Medrol 125MG VIAL) 60 mg BID IV ; Start 05/19/20 at 21:00 Zolpidem Tartrate (Ambien) 5 mg PRN QHS PRN PO INSOMNIA; Start 05/19/20 at 10:30 Vitals/I & O Vital Sign - Last 24 Hours 05/18/20 05/18/20 05/18/20 05/18/20 13:00 14:00 14:45 15:00 Pulse 97 100 112 Resp 16 19 26 B/P (MAP) 181/94 (123) 195/110 (138) 179/100 143/95 (111) Pulse Ox 99 99 99 O2 Delivery Nasal Cannula Nasal Cannula Nasal Cannula O2 Flow Rate 4.0 4.0 4.0 05/18/20 05/18/20 05/18/20 05/18/20 16:00 16:00 17:00 17:02 Temp 97.8 97.8 Pulse 106 100 Resp 28 25 B/P (MAP) 168/96 (120) 165/95 (118) 165/93 Pulse Ox 99 94 O2 Delivery Nasal Cannula Nasal Cannula Nasal Cannula O2 Flow Rate 4.0 4.0 4.0 05/18/20 05/18/20 05/18/20 05/18/20 18:00 18:24 19:00 20:00 Temp 97.9 97.9 Pulse 102 103 102 Resp 14 17 17 B/P (MAP) 173/100 (124) 173/100 152/101 (118) 172/96 (121) Pulse Ox 94 96 95 O2 Delivery Nasal Cannula Nasal Cannula Nasal Cannula O2 Flow Rate 4.0 4.0 4.0 05/18/20 05/18/20 05/18/20 05/18/20 20:00 20:48 21:00 22:00 Pulse 102 106 99 Resp 18 18 B/P (MAP) 172/96 173/96 (121) 174/104 (127) Pulse Ox 96 93 O2 Delivery Nasal Cannula Nasal Cannula Nasal Cannula O2 Flow Rate 4.0 4.0 4.0 05/18/20 05/18/20 05/18/20 05/19/20 22:07 23:00 23:59 00:01 Temp 97.9 97.9 Pulse 103 96 102 Resp 19 16 B/P (MAP) 174/106 164/93 (116) 158/100 (119) Pulse Ox 93 93 O2 Delivery Nasal Cannula Nasal Cannula Nasal Cannula O2 Flow Rate 4.0 4.0 4.0 05/19/20 05/19/20 05/19/20 05/19/20 01:00 01:26 02:00 03:00 Pulse 104 104 104 101 Resp 18 20 B/P (MAP) 161/95 (117) 161/95 162/111 (128) 159/98 (118) Pulse Ox 93 93 92 O2 Delivery Nasal Cannula Nasal Cannula Nasal Cannula O2 Flow Rate 4.0 4.0 4.0 05/19/20 05/19/20 05/19/20 05/19/20 04:00 04:00 05:00 06:00 Temp 97.6 97.6 Pulse 108 109 102 Resp 21 23 18 B/P (MAP) 156/96 (116) 148/99 (115) 178/109 (132) Pulse Ox 95 95 92 O2 Delivery Nasal Cannula Nasal Cannula Nasal Cannula Nasal Cannula O2 Flow Rate 4.0 4.0 4.0 4.0 05/19/20 05/19/20 05/19/20 05/19/20 06:23 07:00 07:54 08:00 Temp 97.6 97.6 Pulse 103 105 105 Resp 20 B/P (MAP) 178/109 162/100 (120) 159/106 (123) Pulse Ox 95 O2 Delivery Nasal Cannula Nasal Cannula O2 Flow Rate 4.0 05/19/20 05/19/20 05/19/20 05/19/20 09:00 09:04 10:05 11:11 Pulse 102 105 99 104 Resp 22 B/P (MAP) 176/107 (130) 176/107 164/99 (120) 164/93 (116) O2 Delivery Nasal Cannula 05/19/20 12:05 B/P (MAP) 146/95 (112) l Intake and Output 05/18/20 05/18/20 05/19/20 14:59 22:59 06:59 Intake Total 466 ml 1020 ml 0 ml Output Total 2050 ml 2150 ml 705 ml Balance -1584 ml -1130 ml -705 ml WILLIAM BENAVIDEZ MD May 19, 2020 12:59
--- NOTE | 2020-05-19 15:58 | PDOC ---
PROGRESS NOTES Chief Complaint Chief Complaint Assessment/Plan Impression: Respiratory failure requiring vent support 75% fio2 COPD ACUTE HYPOXIC / HYPERCAPNIC RESP FAILURE Slight improvement with persistent basilar density bilaterally more on the left. CXR 05/10 Screen COVID-19 virus infection neg 05/09 NSTEMI (non-ST elevated myocardial infarction) left ventricular systolic function is mildly impaired. Ejection Fraction is 45%. tricuspid regurgitation with an estimated PAP of 54 mmHg. COCAINE ABUSE, present on admit Morbid obesity EVY RENAL FX IMPROVING EVY Echogenic appearing bilateral kidneys probably medical renal disease., worse No evidence of hydronephrosis. negative COVID testing Consider further ischemic evaluation pending course of hospitalization Indeterminate right adrenal nodule can be correlated with prior imaging iF available otherwise close attention on follow-up Plan: ICU BED follow pulmonary recommendations for vent management. AC mode, remains intubated/sedated CARDIOLOGY FOLLOWING recommendations greatly appreciated. VENT SUPPORT heparin drip GI PROPHYLAXIS TAPERING IV STEROIDS covid 19 screen negative. Nephrology following cpk Echo to assess LV systolic function pending negative COVID testing review records from [facility] in [place], [place]. when available further ischemic evaluation pending course of hospitalization picc 05/10 BB moving forward with cocaine cessation counseling The patient was evaluated during the global COVID-19 pandemic, and that diagnosis was suspected/considered upon their initial presentation. Their evaluation, treatment and testing was consistent with current guidelines for patients who present with complaints or symptoms that may be related to COVID- 19. 38 MIN CC TIME VTE Prophylaxis Ordered VTE Prophylaxis Devices: Yes VTE Pharmacological Prophylaxi: Yes History of Present Illness History of Present Illness extubated yesterday still NPO, swallow diminished, start PPN cont other, plan out of ICU, breathing better, start pt and ot and st Vitals Vitals Vital Signs Date Time Temp Pulse Resp B/P (MAP) Pulse Ox O2 Delivery O2 Flow Rate FiO2 05/19/20 15:00 98.7 107 18 151/92 (111) 93 Nasal Cannula 4.0 98.7 Physical Exam Physical Exam Heart: RRR Abdomen: obese Neurology: SEDATED General: Cooperative, No acute distress, Other (INTUBATED AND SEDATED) Heart: Regular rate, Normal S1, Normal S2 Lungs: Other (decrease bs) Abdomen: Normal bowel sounds, Soft, No tenderness Extremities: No clubbing, No cyanosis, No edema Skin: No breakdown, No significant lesion Labs LABS Laboratory Tests Test 05/18/20 18:21 05/18/20 23:44 05/19/20 04:45 05/19/20 06:18 Glucose (Fingerstick) 154 mg/dL (70-99) 154 mg/dL (70-99) 167 mg/dL (70-99) White Blood Count 10.6 x10^3/uL (4.0-11.0) Red Blood Count 5.88 x10^6/uL (4.30-5.70) Hemoglobin 13.7 g/dL (13.0-17.5) Hematocrit 43.8 % (39.0-53.0) Mean Corpuscular Volume 75 fL (79-100) Mean Corpuscular Hemoglobin 23 pg (25-35) Mean Corpuscular Hemoglobin Concent 31 g/dL (31-37) Red Cell Distribution Width 16.6 % (11.5-14.5) Platelet Count 143 x10^3/uL (140-400) Neutrophils (%) (Auto) % (31-73) Lymphocytes (%) (Auto) % (24-48) Monocytes (%) (Auto) % (0-9) Eosinophils (%) (Auto) % (0-3) Basophils (%) (Auto) % (0-3) Neutrophils # (Auto) x10^3/uL (1.8-7.7) Lymphocytes # (Auto) x10^3/uL (1.0-4.8) Monocytes # (Auto) x10^3/uL (0.0-1.1) Eosinophils # (Auto) x10^3/uL (0.0-0.7) Basophils # (Auto) x10^3/uL (0.0-0.2) Segmented Neutrophils % 93 % (35-66) Lymphocytes % 4 % (24-48) Monocytes % 3 % (0-10) Toxic Granulation Slight Platelet Estimate Adequate (ADEQUATE) Hypochromasia Slight Anisocytosis Slight Microcytosis Slight Sodium Level 142 mmol/L (136-145) Potassium Level 4.3 mmol/L (3.5-5.1) Chloride Level 103 mmol/L (98-107) Carbon Dioxide Level 36 mmol/L (21-32) Anion Gap 3 (6-14) Blood Urea Nitrogen 36 mg/dL (8-26) Creatinine 1.0 mg/dL (0.7-1.3) Estimated GFR (Cockcroft-Gault) 93.5 BUN/Creatinine Ratio 36 (6-20) Glucose Level 176 mg/dL (70-99) Calcium Level 8.5 mg/dL (8.5-10.1) Total Bilirubin 0.6 mg/dL (0.2-1.0) Aspartate Amino Transf (AST/SGOT) 20 U/L (15-37) Alanine Aminotransferase (ALT/SGPT) 26 U/L (16-63) Alkaline Phosphatase 37 U/L (46-116) Total Protein 5.2 g/dL (6.4-8.2) Albumin 2.6 g/dL (3.4-5.0) Albumin/Globulin Ratio 1.0 (1.0-1.7) Test 05/19/20 08:18 05/19/20 12:00 Glucose (Fingerstick) 165 mg/dL (70-99) 184 mg/dL (70-99) Assessment and Plan Assessmemt and Plan Problems Medical Problems: (1) Cocaine abuse Status: Acute (2) NSTEMI (non-ST elevated myocardial infarction) Status: Acute (3) Respiratory failure Status: Acute (4) Suspected COVID-19 virus infection Status: Acute Comment Review of Relevant I have reviewed the following items jeffrey (where applicable) has been applied. Labs Laboratory Tests Test 05/17/20 18:05 05/18/20 00:09 05/18/20 06:13 05/18/20 08:00 Glucose (Fingerstick) 255 mg/dL (70-99) 269 mg/dL (70-99) 239 mg/dL (70-99) O2 Saturation 93 % (92-99) Arterial Blood pH 7.42 (7.35-7.45) Arterial Blood pCO2 at Patient Temp 48 mmHg (35-46) Arterial Blood pO2 at Patient Temp 69 mmHg (75-108) Arterial Blood HCO3 30 mmol/L (21-28) Arterial Blood Base Excess 5 mmol/L (-3-3) FiO2 40 Test 05/18/20 09:50 05/18/20 10:35 05/18/20 11:21 05/18/20 18:21 O2 Saturation 94 % (92-99) Arterial Blood pH 7.45 (7.35-7.45) Arterial Blood pCO2 at Patient Temp 50 mmHg (35-46) Arterial Blood pO2 at Patient Temp 69 mmHg (75-108) Arterial Blood HCO3 34 mmol/L (21-28) Arterial Blood Base Excess 8 mmol/L (-3-3) FiO2 Cpap trial Sodium Level 138 mmol/L (136-145) Potassium Level 3.9 mmol/L (3.5-5.1) Chloride Level 98 mmol/L (98-107) Carbon Dioxide Level 36 mmol/L (21-32) Anion Gap 4 (6-14) Blood Urea Nitrogen 39 mg/dL (8-26) Creatinine 1.2 mg/dL (0.7-1.3) Estimated GFR (Cockcroft-Gault) 75.8 Glucose Level 272 mg/dL (70-99) Calcium Level 8.2 mg/dL (8.5-10.1) Magnesium Level 1.6 mg/dL (1.8-2.4) Glucose (Fingerstick) 259 mg/dL (70-99) 154 mg/dL (70-99) Test 05/18/20 23:44 05/19/20 04:45 05/19/20 06:18 05/19/20 08:18 Glucose (Fingerstick) 154 mg/dL (70-99) 167 mg/dL (70-99) 165 mg/dL (70-99) White Blood Count 10.6 x10^3/uL (4.0-11.0) Red Blood Count 5.88 x10^6/uL (4.30-5.70) Hemoglobin 13.7 g/dL (13.0-17.5) Hematocrit 43.8 % (39.0-53.0) Mean Corpuscular Volume 75 fL (79-100) Mean Corpuscular Hemoglobin 23 pg (25-35) Mean Corpuscular Hemoglobin Concent 31 g/dL (31-37) Red Cell Distribution Width 16.6 % (11.5-14.5) Platelet Count 143 x10^3/uL (140-400) Neutrophils (%) (Auto) % (31-73) Lymphocytes (%) (Auto) % (24-48) Monocytes (%) (Auto) % (0-9) Eosinophils (%) (Auto) % (0-3) Basophils (%) (Auto) % (0-3) Neutrophils # (Auto) x10^3/uL (1.8-7.7) Lymphocytes # (Auto) x10^3/uL (1.0-4.8) Monocytes # (Auto) x10^3/uL (0.0-1.1) Eosinophils # (Auto) x10^3/uL (0.0-0.7) Basophils # (Auto) x10^3/uL (0.0-0.2) Segmented Neutrophils % 93 % (35-66) Lymphocytes % 4 % (24-48) Monocytes % 3 % (0-10) Toxic Granulation Slight Platelet Estimate Adequate (ADEQUATE) Hypochromasia Slight Anisocytosis Slight Microcytosis Slight Sodium Level 142 mmol/L (136-145) Potassium Level 4.3 mmol/L (3.5-5.1) Chloride Level 103 mmol/L (98-107) Carbon Dioxide Level 36 mmol/L (21-32) Anion Gap 3 (6-14) Blood Urea Nitrogen 36 mg/dL (8-26) Creatinine 1.0 mg/dL (0.7-1.3) Estimated GFR (Cockcroft-Gault) 93.5 BUN/Creatinine Ratio 36 (6-20) Glucose Level 176 mg/dL (70-99) Calcium Level 8.5 mg/dL (8.5-10.1) Total Bilirubin 0.6 mg/dL (0.2-1.0) Aspartate Amino Transf (AST/SGOT) 20 U/L (15-37) Alanine Aminotransferase (ALT/SGPT) 26 U/L (16-63) Alkaline Phosphatase 37 U/L (46-116) Total Protein 5.2 g/dL (6.4-8.2) Albumin 2.6 g/dL (3.4-5.0) Albumin/Globulin Ratio 1.0 (1.0-1.7) Test 05/19/20 12:00 Glucose (Fingerstick) 184 mg/dL (70-99) Laboratory Tests Test 05/18/20 18:21 05/18/20 23:44 05/19/20 04:45 05/19/20 06:18 Glucose (Fingerstick) 154 mg/dL (70-99) 154 mg/dL (70-99) 167 mg/dL (70-99) White Blood Count 10.6 x10^3/uL (4.0-11.0) Red Blood Count 5.88 x10^6/uL (4.30-5.70) Hemoglobin 13.7 g/dL (13.0-17.5) Hematocrit 43.8 % (39.0-53.0) Mean Corpuscular Volume 75 fL (79-100) Mean Corpuscular Hemoglobin 23 pg (25-35) Mean Corpuscular Hemoglobin Concent 31 g/dL (31-37) Red Cell Distribution Width 16.6 % (11.5-14.5) Platelet Count 143 x10^3/uL (140-400) Neutrophils (%) (Auto) % (31-73) Lymphocytes (%) (Auto) % (24-48) Monocytes (%) (Auto) % (0-9) Eosinophils (%) (Auto) % (0-3) Basophils (%) (Auto) % (0-3) Neutrophils # (Auto) x10^3/uL (1.8-7.7) Lymphocytes # (Auto) x10^3/uL (1.0-4.8) Monocytes # (Auto) x10^3/uL (0.0-1.1) Eosinophils # (Auto) x10^3/uL (0.0-0.7) Basophils # (Auto) x10^3/uL (0.0-0.2) Segmented Neutrophils % 93 % (35-66) Lymphocytes % 4 % (24-48) Monocytes % 3 % (0-10) Toxic Granulation Slight Platelet Estimate Adequate (ADEQUATE) Hypochromasia Slight Anisocytosis Slight Microcytosis Slight Sodium Level 142 mmol/L (136-145) Potassium Level 4.3 mmol/L (3.5-5.1) Chloride Level 103 mmol/L (98-107) Carbon Dioxide Level 36 mmol/L (21-32) Anion Gap 3 (6-14) Blood Urea Nitrogen 36 mg/dL (8-26) Creatinine 1.0 mg/dL (0.7-1.3) Estimated GFR (Cockcroft-Gault) 93.5 BUN/Creatinine Ratio 36 (6-20) Glucose Level 176 mg/dL (70-99) Calcium Level 8.5 mg/dL (8.5-10.1) Total Bilirubin 0.6 mg/dL (0.2-1.0) Aspartate Amino Transf (AST/SGOT) 20 U/L (15-37) Alanine Aminotransferase (ALT/SGPT) 26 U/L (16-63) Alkaline Phosphatase 37 U/L (46-116) Total Protein 5.2 g/dL (6.4-8.2) Albumin 2.6 g/dL (3.4-5.0) Albumin/Globulin Ratio 1.0 (1.0-1.7) Test 05/19/20 08:18 05/19/20 12:00 Glucose (Fingerstick) 165 mg/dL (70-99) 184 mg/dL (70-99) Microbiology 05/08/20 Blood Culture - Final, Complete NO GROWTH AFTER 5 DAYS Medications Current Medications Propofol 50 ml @ As Directed STK-MED ONCE IV ; Start 05/08/20 at 07:33; Stop 05/08/20 at 07:33; Status DC Propofol 100 ml @ 0 mls/hr CONT PRN IV SEE PROTOCOL Last administered on 05/18/20at 04:04; Start 05/08/20 at 07:45; Stop 05/18/20 at 18:04; Status DC Fentanyl Citrate (Fentanyl 2ml Vial) 50 mcg PRN Q1HR PRN IV SEE COMMENTS Last administered on 05/08/20at 12:44; Start 05/08/20 at 07:45; Stop 05/18/20 at 18:04; Status DC Chlorhexidine Gluconate (Peridex) 15 ml BID MM Last administered on 05/16/20at 20:05; Start 05/08/20 at 09:00; Stop 05/17/20 at 10:45; Status DC Etomidate (Amidate) 20 mg 1X ONCE IV Last administered on 05/08/20at 07:30; Start 05/08/20 at 07:45; Stop 05/08/20 at 09:04; Status DC Succinylcholine Chloride (Anectine) 100 mg 1X ONCE IV Last administered on 05/08/20at 07:31; Start 05/08/20 at 07:45; Stop 05/08/20 at 09:04; Status DC Albuterol/ Ipratropium (Duoneb) 6 ml 1X ONCE NEB ; Start 05/08/20 at 07:45; Stop 05/08/20 at 09:04; Status DC Methylprednisolone Sodium Succinate (SOLU-Medrol 125MG VIAL) 125 mg 1X ONCE IV Last administered on 05/08/20at 08:31; Start 05/08/20 at 07:45; Stop 05/08/20 at 09:04; Status DC Albuterol Sulfate (Ventolin Neb Soln) 2.5 mg 1X ONCE NEB ; Start 05/08/20 at 07:45; Stop 05/08/20 at 08:56; Status DC Ceftriaxone Sodium (Rocephin) 1 gm 1X ONCE IVP Last administered on 05/08/20at 08:31; Start 05/08/20 at 07:45; Stop 05/08/20 at 09:04; Status DC Propofol (Diprivan) 40 mg 1X ONCE IV ; Start 05/08/20 at 08:00; Stop 05/08/20 at 09:04; Status DC Fentanyl Citrate 30 ml @ 0 mls/hr CONT PRN IV SEE PROTOCOL Last administered on 05/18/20at 04:52; Start 05/08/20 at 08:15; Stop 05/18/20 at 18:42; Status DC Midazolam HCl 100 ml @ 0 mls/hr CONT PRN IV SEE PROTOCOL Last administered on 05/17/20at 08:57; Start 05/08/20 at 08:15; Stop 05/18/20 at 18:04; Status DC Sodium Chloride 1,000 ml @ 1,000 mls/hr 1X ONCE IV Last administered on 05/08/20at 08:47; Start 05/08/20 at 08:30; Stop 05/08/20 at 09:29; Status DC Midazolam HCl (Versed) 5 mg 1X ONCE IV Last administered on 05/08/20at 08:33; Start 05/08/20 at 08:30; Stop 05/08/20 at 09:04; Status DC Ondansetron HCl (Zofran) 4 mg PRN Q8HRS PRN IV NAUSEA/VOMITING; Start 05/08/20 at 08:45; Stop 05/09/20 at 08:44; Status DC Aspirin (Aspirin Rectal Supp) 300 mg 1X ONCE IA Last administered on 05/08/20at 10:00; Start 05/08/20 at 08:45; Stop 05/08/20 at 09:04; Status DC Sodium Chloride (Normal Saline Flush) 3 ml QSHIFT PRN IV AFTER MEDS AND BLOOD DRAWS; Start 05/08/20 at 11:30; Stop 05/08/20 at 18:55; Status DC Sodium Chloride 1,000 ml @ 60 mls/hr [id number] IV Last administered on 05/08/20at 12:53; Start 05/08/20 at 11:24; Stop 05/08/20 at 18:55; Status DC Ondansetron HCl (Zofran) 4 mg PRN Q4HRS PRN IV NAUSEA/VOMITING; Start 05/08/20 at 11:30; Stop 05/08/20 at 18:55; Status DC Acetaminophen (Tylenol Supp) 650 mg PRN Q4HRS PRN IA TEMP OVER 100.4F OR MILD PAIN; Start 05/08/20 at 11:30; Stop 05/08/20 at 18:47; Status DC Sodium Monofluorophosphate (Fleet Adult) 133 ml PRN DAILY PRN IA CONSTIPATION; Start 05/08/20 at 11:30; Stop 05/08/20 at 18:55; Status DC Albuterol/ Ipratropium (Duoneb) 3 ml Q4H NEB ; Start 05/08/20 at 11:30; Stop 05/08/20 at 15:37; Status DC Enoxaparin Sodium (Lovenox 40mg Syringe) 40 mg DAILY SQ ; Start 05/09/20 at 09:00; Stop 05/08/20 at 18:54; Status DC Pantoprazole Sodium (PROTONIX VIAL for IV PUSH) 40 mg DAILYAC IVP Last administered on 05/19/20at 06:56; Start 05/08/20 at 11:30 Etomidate (Amidate) 40 mg 1X ONCE IV Last administered on 05/08/20at 07:57; Start 05/08/20 at 07:55; Stop 05/08/20 at 12:05; Status DC Methylprednisolone Sodium Succinate (SOLU-Medrol 125MG VIAL) 60 mg Q8HRS IV Last administered on 05/19/20at 06:19; Start 05/08/20 at 14:00; Stop 05/19/20 at 11:32; Status DC Midazolam HCl (Versed) 5 mg PRN Q15MIN PRN IV SEDATION Last administered on 05/08/20at 12:32; Start 05/08/20 at 08:00 Enoxaparin Sodium (Lovenox Per Pharmacy Prophylaxis Dosing) 1 each PRN DAILY PRN MC SEE COMMENTS; Start 05/08/20 at 16:00; Stop 05/10/20 at 09:14; Status DC Sodium Chloride (Normal Saline Flush) 3 ml QSHIFT PRN IV AFTER MEDS AND BLOOD DRAWS; Start 05/08/20 at 16:15 Sodium Chloride 1,000 ml @ 50 mls/hr Q20H IV Last administered on 05/18/20at 17:00; Start 05/08/20 at 16:01; Stop 05/19/20 at 11:02; Status DC Ondansetron HCl (Zofran) 4 mg PRN Q4HRS PRN IV NAUSEA/VOMITING; Start 05/08/20 at 16:15 Acetaminophen (Tylenol Supp) 650 mg PRN Q4HRS PRN IA TEMP OVER 100.4F OR MILD PAIN; Start 05/08/20 at 16:15 Sodium Monofluorophosphate (Fleet Adult) 133 ml PRN DAILY PRN IA CONSTIPATION; Start 05/08/20 at 16:15 Albuterol/ Ipratropium (Duoneb) 3 ml Q4H NEB ; Start 05/08/20 at 16:15; Stop at 18:45; Status DC Enoxaparin Sodium (Lovenox 40mg Syringe) 40 mg Q24H SQ Last administered on 05/09/20at 17:04; Start 05/08/20 at 17:00; Stop 05/10/20 at 09:14; Status DC Ceftriaxone Sodium (Rocephin) 1 gm Q24H IVP Last administered on 05/19/20at 08:19; Start 05/09/20 at 08:00; Stop 05/19/20 at 11:32; Status DC Aspirin (Aspirin Chewable) 81 mg DAILYWBKFT PO ; Start 05/08/20 at 17:30; Stop 05/08/20 at 17:27; Status DC Aspirin (Aspirin Chewable) 81 mg DAILYWBKFT PO Last administered on 05/18/20at 08 :03; Start 05/09/20 at 08:00 Albuterol Sulfate (Ventolin Neb Soln) 2.5 mg PRN Q4HRS PRN NEB SHORTNESS OF BREATH; Start 05/08/20 at 19:00 Amlodipine Besylate (Norvasc) 10 mg 1X ONCE PO Last administered on 05/09/20at 14:31; Start 05/09/20 at 14:30; Stop 05/09/20 at 14:31; Status DC Clonidine HCl (Catapres) 0.1 mg PRN Q2HR PRN PO HYPERTENSION Last administered on 05/13/20at 10:18; Start 05/09/20 at 14:30; Stop 05/13/20 at 11:34; Status DC Enoxaparin Sodium (Lovenox Per Pharmacy Treatment Dosing) 1 each PRN DAILY PRN MC SEE COMMENTS; Start 05/10/20 at 09:30; Status Cancel Enoxaparin Sodium (Lovenox 120mg Syringe) 120 mg DAILY SQ Last administered on 05/10/20at 10:19; Start 05/10/20 at 10:00; Stop 05/10/20 at 10:48; Status DC Heparin Sodium/ Dextrose 250 ml @ 10 mls/hr CONT PRN IV PER PROTOCOL Last administered on 05/11/20at 20:59; Start 05/10/20 at 11:00; Stop 05/13/20 at 13:35; Status DC Heparin Sodium (Porcine) (Heparin Sodium) 2,950 unit PRN Q6HRS PRN IV FOR UFH LEVEL LESS THAN 0.2; Start 05/10/20 at 11:00; Stop 05/13/20 at 13:36; Status DC Polyethylene Glycol (miraLAX PACKET) 17 gm PRN DAILY PRN PO CONSTIPATION Last administered on 05/11/20at 11:20; Start 05/10/20 at 16:00 Lidocaine HCl (Buffered Lidocaine 1%) 3 ml STK-MED ONCE .ROUTE ; Start 05/11/20 at 13:30; Stop 05/11/20 at 13:30; Status DC Lidocaine HCl (Buffered Lidocaine 1%) 6 ml 1X ONCE INJ Last administered on at 13:50; Start 05/11/20 at 14:00; Stop 05/11/20 at 14:01; Status DC Sodium Chloride 1,000 ml @ 1,000 mls/hr Q1H PRN IV hypotension; Start 05/11/20 at 15:19; Stop 05/11/20 at 21:18; Status DC Info (PHARMACY MONITORING -- do not chart) 1 each PRN DAILY PRN MC SEE COMMENTS; Start 05/11/20 at 15:30; Status Cancel Info (PHARMACY MONITORING -- do not chart) 1 each PRN DAILY PRN MC SEE COMMENTS; Start 05/11/20 at 15:30; Status UNV Sodium Chloride 1,000 ml @ 1,000 mls/hr Q1H PRN IV hypotension; Start 05/12/20 at 08:28; Stop 05/12/20 at 14:27; Status DC Albumin Human 200 ml @ 200 mls/hr 1X PRN PRN IV Hypotension; Start 05/12/20 at 08:30; Stop 05/12/20 at 14:29; Status DC Sodium Chloride (Normal Saline Flush) 10 ml 1X PRN PRN IV AP catheter pack; Start 05/12/20 at 08:30; Stop 05/13/20 at 08:29; Status DC Sodium Chloride (Normal Saline Flush) 10 ml 1X PRN PRN IV [employer] catheter pack; Start 05/12/20 at 08:30; Stop 05/13/20 at 08:29; Status DC Sodium Chloride 1,000 ml @ 400 mls/hr Q2H30M PRN IV PATENCY; Start 05/12/20 at 08:28; Stop 05/12/20 at 20:27; Status DC Info (PHARMACY MONITORING -- do not chart) 1 each PRN DAILY PRN MC SEE COMMENTS; Start 05/12/20 at 08:30; Status UNV Info (PHARMACY MONITORING -- do not chart) 1 each PRN DAILY PRN MC SEE COM MENTS; Start 05/12/20 at 08:30 Info (Anti-Coagulation Monitoring By Pharmacy) 1 each PRN DAILY PRN MC SEE COMMENTS; Start 05/12/20 at 09:15; Stop 05/13/20 at 13:35; Status DC Iohexol (Omnipaque 350 Mg/ml) 100 ml 1X ONCE IV Last administered on 05/12/20at 15:45; Start 05/12/20 at 11:45; Stop 05/12/20 at 11:46; Status DC Info (CONTRAST GIVEN -- Rx MONITORING) 1 each PRN DAILY PRN MC SEE COMMENTS; Start 05/12/20 at 11:45; Stop 05/14/20 at 11:44; Status DC Insulin Human Lispro (HumaLOG) 0-5 UNITS TIDWMEALS SQ Last administered on 05/12/20at 18:16; Start 05/12/20 at 13:00; Stop 05/12/20 at 19:02; Status DC Dextrose (Dextrose 50%-Water Syringe) 12.5 gm PRN Q15MIN PRN IV SEE COMMENTS; Start 05/12/20 at 12:45 Dextrose (Iv Dextrose 5%) 250 ml PRN Q15MIN PRN IV SEE COMMENTS; Start 05/12/20 at 12:45 Insulin Human Lispro (HumaLOG) 0-5 UNITS Q6HRS SQ Last administered on 05/18/20at 06:15; Start 05/13/20 at 00:00 Labetalol HCl (Normodyne Iv Push) 10 mg PRN Q4HRS PRN IVP HYPERTENSION Last administered on 05/19/20at 09:04; Start 05/13/20 at 12:00 Sodium Chloride 1,000 ml @ 1,000 mls/hr Q1H PRN IV hypotension; Start 05/13/20 at 12:00; Stop 05/13/20 at 19:00; Status DC Sodium Chloride 1,000 ml @ 400 mls/hr Q2H30M PRN IV PATENCY; Start 05/13/20 at 12:00; Stop 05/13/20 at 19:00; Status DC Info (PHARMACY MONITORING -- do not chart) 1 each PRN DAILY PRN MC SEE COMMENTS; Start 05/13/20 at 12:00; Status UNV Info (PHARMACY MONITORING -- do not chart) 1 each PRN DAILY PRN MC SEE COMMENTS; Start 05/13/20 at 12:00; Status UNV Heparin Sodium (Porcine) (Heparin Sodium) 5,000 unit Q12HR SQ Last administered on 05/19/20at 08:28; Start 05/13/20 at 21:00 Amlodipine Besylate (Norvasc) 10 mg DAILY PO Last administered on 05/18/20at 08:12; Start 05/14/20 at 12:00 Hydralazine HCl (Apresoline Inj) 25 mg TID IVP Last administered on 05/16/20at 07:42; Start 05/14/20 at 12:00; Stop 05/16/20 at 13:17; Status DC Furosemide (Lasix) 80 mg 1X ONCE IVP Last administered on 05/14/20at 12:03; Start 05/14/20 at 12:00; Stop 05/14/20 at 12:01; Status DC Hydralazine HCl (Apresoline Inj) 10 mg PRN Q4HRS PRN IVP ELEVATED BP, SEE COMMENTS Last administered on 05/19/20at 14:31; Start 05/16/20 at 12:15 Hydralazine HCl (Apresoline) 50 mg TID PO ; Start 05/16/20 at 14:00; Stop 05/16/20 at 13:25; Status DC Carvedilol (Coreg) 12.5 mg BIDWMEALS PO ; Start 05/16/20 at 17:00; Stop 05/16/20 at 13:25; Status DC Carvedilol (Coreg) 3.125 mg BIDWMEALS PO Last administered on 05/16/20at 17:30; Start 05/16/20 at 17:00; Stop 05/17/20 at 08:15; Status DC Hydralazine HCl (Apresoline) 25 mg BID PO Last administered on 05/18/20at 08:09; Start 05/16/20 at 21:00 Carvedilol (Coreg) 6.25 mg BIDWMEALS PO Last administered on 05/18/20at 18:24; Start 05/17/20 at 08:15 Dexmedetomidine HCl 400 mcg/ Sodium Chloride 100 ml @ 0 mls/hr CONT PRN IV PER PROTOCOL Last administered on 05/18/20at 04:06; Start 05/17/20 at 09:45; Stop 05/19/20 at 11:32; Status DC Sodium Chloride 500 ml @ 500 mls/hr 1X PRN PRN IV PER PROTOCOL; Start 05/17/20 at 09:45 Atropine Sulfate (ATROPINE 0.5mg SYRINGE) 0.5 mg PRN Q5MIN PRN IV SEE COMMENTS; Start 05/17/20 at 09:45 Haloperidol Lactate (Haldol Inj) 5 mg Q8HRS IVP Last administered on 05/18/20at 06:07; Start 05/17/20 at 14:00; Stop 05/18/20 at 18:42; Status DC Furosemide (Lasix) 40 mg 1X ONCE IVP Last administered on 05/17/20at 18:00; Start 05/17/20 at 17:30; Stop 05/17/20 at 17:31; Status DC Furosemide (Lasix) 40 mg DAILY IVP Last administered on 05/18/20at 08:03; Start 05/18/20 at 09:00; Stop 05/18/20 at 12:32; Status DC Insulin Glargine (Lantus Syringe) 14 unit DAILY SQ Last administered on 05/19/20at 09:13; Start 05/18/20 at 11:00 Furosemide (Lasix) 40 mg PRN DAILY PRN IVP SEE COMMENTS; Start 05/18/20 at 12:45 Haloperidol Lactate (Haldol Inj) 5 mg PRN Q8HRS PRN IVP DELIRIUM; Start 05/18/20 at 18:45 Zolpidem Tartrate (Ambien) 5 mg PRN QHS PRN PO INSOMNIA; Start 05/19/20 at 10:30 Amino Acids/ Glycerin/ Electrolytes 1,000 ml @ 80 mls/hr [id number] IV Last administered on 05/19/20at 11:16; Start 05/19/20 at 11:15 Methylprednisolone Sodium Succinate (SOLU-Medrol 125MG VIAL) 60 mg BID IV ; Start 05/19/20 at 21:00 Active Scripts Active Reported [amlodipine benazep] Unknown Dose PO Proventil Hfa (Albuterol Sulfate) 6.7 Gm Hfa.aer.ad 1 Puff INH PRN Q6HRS PRN Advair 100-50 Diskus (Fluticasone/Salmeterol) 1 Each Disk.w.dev 1 Puff IH BID Vitals/I & O Vital Sign - Last 24 Hours 05/18/20 05/18/20 05/18/20 05/18/20 16:00 16:00 17:00 17:02 Temp 97.8 97.8 Pulse 106 100 Resp 28 25 B/P (MAP) 168/96 (120) 165/95 (118) 165/93 Pulse Ox 99 94 O2 Delivery Nasal Cannula Nasal Cannula Nasal Cannula O2 Flow Rate 4.0 4.0 4.0 05/18/20 05/18/20 05/18/20 05/18/20 18:00 18:24 19:00 20:00 Temp 97.9 97.9 Pulse 102 103 102 Resp 14 17 17 B/P (MAP) 173/100 (124) 173/100 152/101 (118) 172/96 (121) Pulse Ox 94 96 95 O2 Delivery Nasal Cannula Nasal Cannula Nasal Cannula O2 Flow Rate 4.0 4.0 4.0 05/18/20 05/18/20 05/18/20 05/18/20 20:00 20:48 21:00 22:00 Pulse 102 106 99 Resp 18 18 B/P (MAP) 172/96 173/96 (121) 174/104 (127) Pulse Ox 96 93 O2 Delivery Nasal Cannula Nasal Cannula Nasal Cannula O2 Flow Rate 4.0 4.0 4.0 05/18/20 05/18/20 05/18/20 05/19/20 22:07 23:00 23:59 00:01 Temp 97.9 97.9 Pulse 103 96 102 Resp 19 16 B/P (MAP) 174/106 164/93 (116) 158/100 (119) Pulse Ox 93 93 O2 Delivery Nasal Cannula Nasal Cannula Nasal Cannula O2 Flow Rate 4.0 4.0 4.0 05/19/20 05/19/20 05/19/20 05/19/20 01:00 01:26 02:00 03:00 Pulse 104 104 104 101 Resp 18 20 B/P (MAP) 161/95 (117) 161/95 162/111 (128) 159/98 (118) Pulse Ox 93 93 92 O2 Delivery Nasal Cannula Nasal Cannula Nasal Cannula O2 Flow Rate 4.0 4.0 4.0 05/19/20 05/19/20 05/19/20 05/19/20 04:00 04:00 05:00 06:00 Temp 97.6 97.6 Pulse 108 109 102 Resp 21 23 18 B/P (MAP) 156/96 (116) 148/99 (115) 178/109 (132) Pulse Ox 95 95 92 O2 Delivery Nasal Cannula Nasal Cannula Nasal Cannula Nasal Cannula O2 Flow Rate 4.0 4.0 4.0 4.0 05/19/20 05/19/20 05/19/20 05/19/20 06:23 07:00 07:54 08:00 Temp 97.6 97.6 Pulse 103 105 105 Resp 20 B/P (MAP) 178/109 162/100 (120) 159/106 (123) Pulse Ox 95 O2 Delivery Nasal Cannula Nasal Cannula O2 Flow Rate 4.0 05/19/20 05/19/20 05/19/20 05/19/20 09:00 09:04 10:05 11:11 Pulse 102 105 99 104 Resp 22 B/P (MAP) 176/107 (130) 176/107 164/99 (120) 164/93 (116) O2 Delivery Nasal Cannula 05/19/20 05/19/20 05/19/20 12:05 14:31 15:00 Temp 98.7 98.7 Pulse 105 107 Resp 18 B/P (MAP) 146/95 (112) 176/103 151/92 (111) Pulse Ox 93 O2 Delivery Nasal Cannula O2 Flow Rate 4.0 Intake and Output 05/18/20 05/18/20 05/19/20 15:00 23:00 07:00 Intake Total 466 ml 1020 ml 0 ml Output Total 2050 ml 2225 ml 630 ml Balance -1584 ml -1205 ml -630 ml Justicifation of Admission Dx: Justifications for Admission: Justification of Admission Dx: Yes CHF: Hemodynamic Instability Respiratory Failure: Mechanical Ventilation Acute COPD Exacerbation: Acute COPD Exacerbation Altered Mental Status: Altered Mental Status SANGEETA SUERO MD May 19, 2020 15:58
[2020-05-20 02:56] LABS: BASO % 0 % (0-3); EOS % 0 % (0-3); HEMATOCRIT 43.2 % (39.0-53.0); HEMOGLOBIN 13.5 g/dL (13.0-17.5); LYMPH % 10 % (24-48); MEAN CORPUSCULAR HEMOGLOBIN 23 pg (25-35); MEAN CORPUSCULAR HGB CONC 31 g/dL (31-37); MEAN CORPUSCULAR VOLUME 75 fL (79-100); MONO # 0.3 x10^3/uL (0.0-1.1); MONO % 3 % (0-9); NEUT # 9.1 x10^3/uL (1.8-7.7); NEUT % 87 % (31-73); PLATELET COUNT 158 x10^3/uL (140-400); RED BLOOD COUNT 5.75 x10^6/uL (4.30-5.70); RED CELL DISTRIBUTION WIDTH 16.1 % (11.5-14.5); WHITE BLOOD COUNT 10.5 x10^3/uL (4.0-11.0)
[2020-05-20 03:12] LABS: ALBUMIN 2.6 g/dL (3.4-5.0); ALBUMIN/GLOBULIN RATIO 0.9 (1.0-1.7); ALK PHOS 34 U/L (46-116); ALT (SGPT) 37 U/L (16-63); AST (SGOT) 19 U/L (15-37); BLOOD UREA NITROGEN 36 mg/dL (8-26); BUN/CREATININE RATIO 33 (6-20); CALCIUM 8.1 mg/dL (8.5-10.1); CARBON DIOXIDE 39 mmol/L (21-32); CHLORIDE 102 mmol/L (98-107); CREATININE 1.1 mg/dL (0.7-1.3); GFR 83.8; GLUCOSE 177 mg/dL (70-99); POTASSIUM 4.1 mmol/L (3.5-5.1); SODIUM 139 mmol/L (136-145); TOTAL BILIRUBIN 0.9 mg/dL (0.2-1.0); TOTAL PROTEIN 5.5 g/dL (6.4-8.2)
[2020-05-20 03:53] VITALS: BP 160/101
--- NOTE | 2020-05-20 04:56 | EKG ---
[facility] [address] [place] [address] Test Date: 2020-05-20 Test Time: 04:52:27 Pat Name: AUGUST CHAVIRA Department: Room: 262 1 Gender: M Direct Support Professional Home Health: ELIN : 1965 Requested By: WILLIAM BENAVIDEZ Order Number: [id number] Reading MD: Measurements Intervals [place] Rate: 103 P: 90 NV: 142 QRS: 58 QRSD: 68 T: 64 QT: 306 QTc: 403 Interpretive Statements SINUS TACHYCARDIA ATRIAL PREMATURE COMPLEX(ES) LOW LIMB LEAD VOLTAGE CONSIDER RIGHT VENTRICULAR HYPERTROPHY QRS(T) CONTOUR ABNORMALITY CONSIDER ANTEROSEPTAL MYOCARDIAL DAMAGE POSSIBLY ABNORMAL ECG RI6.02 Compared to ECG 05/08/2020 07:23:16 No significant changes
[2020-05-20] MEDS: INSULIN LISPRO 300 UNITS/3 ML VIAL. SQ SCH ×5 (06:00→23:10)
[2020-05-20 07:00] VITALS: BP 112/64
--- NOTE | 2020-05-20 09:45 | PDOC ---
PULMONARY PROGRESS NOTES Subjective Patient feeling better today, reports no increase in cough and minimal SOB Reports he wore BIPAP overnight Vitals Vital Signs Date Time Temp Pulse Resp B/P (MAP) Pulse Ox O2 Delivery O2 Flow Rate FiO2 05/20/20 08:00 Nasal Cannula 4.0 05/20/20 07:00 97.9 101 22 112/64 (80) 93 97.9 ROS: No Nausea, No Chest Pain, No Abdominal Pain, No Increase Cough General: Alert Lungs: Other (decrease bs) Cardiovascular: S1 Abdomen: Soft, Other (obese) Extremities: Other (BLE +1) Skin: Warm, Dry Labs Laboratory Tests Test 05/18/20 09:50 05/18/20 10:35 05/18/20 11:21 05/18/20 18:21 O2 Saturation 94 % (92-99) Arterial Blood pH 7.45 (7.35-7.45) Arterial Blood pCO2 at Patient Temp 50 mmHg (35-46) Arterial Blood pO2 at Patient Temp 69 mmHg (75-108) Arterial Blood HCO3 34 mmol/L (21-28) Arterial Blood Base Excess 8 mmol/L (-3-3) FiO2 Cpap trial Sodium Level 138 mmol/L (136-145) Potassium Level 3.9 mmol/L (3.5-5.1) Chloride Level 98 mmol/L (98-107) Carbon Dioxide Level 36 mmol/L (21-32) Anion Gap 4 (6-14) Blood Urea Nitrogen 39 mg/dL (8-26) Creatinine 1.2 mg/dL (0.7-1.3) Estimated GFR (Cockcroft-Gault) 75.8 Glucose Level 272 mg/dL (70-99) Calcium Level 8.2 mg/dL (8.5-10.1) Magnesium Level 1.6 mg/dL (1.8-2.4) Glucose (Fingerstick) 259 mg/dL (70-99) 154 mg/dL (70-99) Test 05/18/20 23:44 05/19/20 04:45 05/19/20 06:18 05/19/20 08:18 Glucose (Fingerstick) 154 mg/dL (70-99) 167 mg/dL (70-99) 165 mg/dL (70-99) White Blood Count 10.6 x10^3/uL (4.0-11.0) Red Blood Count 5.88 x10^6/uL (4.30-5.70) Hemoglobin 13.7 g/dL (13.0-17.5) Hematocrit 43.8 % (39.0-53.0) Mean Corpuscular Volume 75 fL (79-100) Mean Corpuscular Hemoglobin 23 pg (25-35) Mean Corpuscular Hemoglobin Concent 31 g/dL (31-37) Red Cell Distribution Width 16.6 % (11.5-14.5) Platelet Count 143 x10^3/uL (140-400) Neutrophils (%) (Auto) % (31-73) Lymphocytes (%) (Auto) % (24-48) Monocytes (%) (Auto) % (0-9) Eosinophils (%) (Auto) % (0-3) Basophils (%) (Auto) % (0-3) Neutrophils # (Auto) x10^3/uL (1.8-7.7) Lymphocytes # (Auto) x10^3/uL (1.0-4.8) Monocytes # (Auto) x10^3/uL (0.0-1.1) Eosinophils # (Auto) x10^3/uL (0.0-0.7) Basophils # (Auto) x10^3/uL (0.0-0.2) Segmented Neutrophils % 93 % (35-66) Lymphocytes % 4 % (24-48) Monocytes % 3 % (0-10) Toxic Granulation Slight Platelet Estimate Adequate (ADEQUATE) Hypochromasia Slight Anisocytosis Slight Microcytosis Slight Sodium Level 142 mmol/L (136-145) Potassium Level 4.3 mmol/L (3.5-5.1) Chloride Level 103 mmol/L (98-107) Carbon Dioxide Level 36 mmol/L (21-32) Anion Gap 3 (6-14) Blood Urea Nitrogen 36 mg/dL (8-26) Creatinine 1.0 mg/dL (0.7-1.3) Estimated GFR (Cockcroft-Gault) 93.5 BUN/Creatinine Ratio 36 (6-20) Glucose Level 176 mg/dL (70-99) Calcium Level 8.5 mg/dL (8.5-10.1) Total Bilirubin 0.6 mg/dL (0.2-1.0) Aspartate Amino Transf (AST/SGOT) 20 U/L (15-37) Alanine Aminotransferase (ALT/SGPT) 26 U/L (16-63) Alkaline Phosphatase 37 U/L (46-116) Total Protein 5.2 g/dL (6.4-8.2) Albumin 2.6 g/dL (3.4-5.0) Albumin/Globulin Ratio 1.0 (1.0-1.7) Test 05/19/20 12:00 05/19/20 17:10 05/19/20 20:57 05/19/20 23:11 Glucose (Fingerstick) 184 mg/dL (70-99) 163 mg/dL (70-99) 117 mg/dL (70-99) 120 mg/dL (70-99) Test 05/20/20 02:35 White Blood Count 10.5 x10^3/uL (4.0-11.0) Red Blood Count 5.75 x10^6/uL (4.30-5.70) Hemoglobin 13.5 g/dL (13.0-17.5) Hematocrit 43.2 % (39.0-53.0) Mean Corpuscular Volume 75 fL (79-100) Mean Corpuscular Hemoglobin 23 pg (25-35) Mean Corpuscular Hemoglobin Concent 31 g/dL (31-37) Red Cell Distribution Width 16.1 % (11.5-14.5) Platelet Count 158 x10^3/uL (140-400) Neutrophils (%) (Auto) 87 % (31-73) Lymphocytes (%) (Auto) 10 % (24-48) Monocytes (%) (Auto) 3 % (0-9) Eosinophils (%) (Auto) 0 % (0-3) Basophils (%) (Auto) 0 % (0-3) Neutrophils # (Auto) 9.1 x10^3/uL (1.8-7.7) Lymphocytes # (Auto) 1.0 x10^3/uL (1.0-4.8) Monocytes # (Auto) 0.3 x10^3/uL (0.0-1.1) Eosinophils # (Auto) 0.0 x10^3/uL (0.0-0.7) Basophils # (Auto) 0.0 x10^3/uL (0.0-0.2) Sodium Level 139 mmol/L (136-145) Potassium Level 4.1 mmol/L (3.5-5.1) Chloride Level 102 mmol/L (98-107) Carbon Dioxide Level 39 mmol/L (21-32) Anion Gap (6-14) Blood Urea Nitrogen 36 mg/dL (8-26) Creatinine 1.1 mg/dL (0.7-1.3) Estimated GFR (Cockcroft-Gault) 83.8 BUN/Creatinine Ratio 33 (6-20) Glucose Level 177 mg/dL (70-99) Calcium Level 8.1 mg/dL (8.5-10.1) Total Bilirubin 0.9 mg/dL (0.2-1.0) Aspartate Amino Transf (AST/SGOT) 19 U/L (15-37) Alanine Aminotransferase (ALT/SGPT) 37 U/L (16-63) Alkaline Phosphatase 34 U/L (46-116) Total Protein 5.5 g/dL (6.4-8.2) Albumin 2.6 g/dL (3.4-5.0) Albumin/Globulin Ratio 0.9 (1.0-1.7) Laboratory Tests Test 05/19/20 12:00 05/19/20 17:10 05/19/20 20:57 05/19/20 23:11 Glucose (Fingerstick) 184 mg/dL (70-99) 163 mg/dL (70-99) 117 mg/dL (70-99) 120 mg/dL (70-99) Test 05/20/20 02:35 White Blood Count 10.5 x10^3/uL (4.0-11.0) Red Blood Count 5.75 x10^6/uL (4.30-5.70) Hemoglobin 13.5 g/dL (13.0-17.5) Hematocrit 43.2 % (39.0-53.0) Mean Corpuscular Volume 75 fL (79-100) Mean Corpuscular Hemoglobin 23 pg (25-35) Mean Corpuscular Hemoglobin Concent 31 g/dL (31-37) Red Cell Distribution Width 16.1 % (11.5-14.5) Platelet Count 158 x10^3/uL (140-400) Neutrophils (%) (Auto) 87 % (31-73) Lymphocytes (%) (Auto) 10 % (24-48) Monocytes (%) (Auto) 3 % (0-9) Eosinophils (%) (Auto) 0 % (0-3) Basophils (%) (Auto) 0 % (0-3) Neutrophils # (Auto) 9.1 x10^3/uL (1.8-7.7) Lymphocytes # (Auto) 1.0 x10^3/uL (1.0-4.8) Monocytes # (Auto) 0.3 x10^3/uL (0.0-1.1) Eosinophils # (Auto) 0.0 x10^3/uL (0.0-0.7) Basophils # (Auto) 0.0 x10^3/uL (0.0-0.2) Sodium Level 139 mmol/L (136-145) Potassium Level 4.1 mmol/L (3.5-5.1) Chloride Level 102 mmol/L (98-107) Carbon Dioxide Level 39 mmol/L (21-32) Anion Gap (6-14) Blood Urea Nitrogen 36 mg/dL (8-26) Creatinine 1.1 mg/dL (0.7-1.3) Estimated GFR (Cockcroft-Gault) 83.8 BUN/Creatinine Ratio 33 (6-20) Glucose Level 177 mg/dL (70-99) Calcium Level 8.1 mg/dL (8.5-10.1) Total Bilirubin 0.9 mg/dL (0.2-1.0) Aspartate Amino Transf (AST/SGOT) 19 U/L (15-37) Alanine Aminotransferase (ALT/SGPT) 37 U/L (16-63) Alkaline Phosphatase 34 U/L (46-116) Total Protein 5.5 g/dL (6.4-8.2) Albumin 2.6 g/dL (3.4-5.0) Albumin/Globulin Ratio 0.9 (1.0-1.7) Medications Active Scripts Medications Dose Route/Sig Max Daily Dose Days Date Category [amlodipine benazep] Unknown Dose PO 05/08/20 Reported Proventil Hfa (Albuterol Sulfate) 6.7 Gm Hfa.aer.ad 1 Puff INH PRN Q6HRS PRN 05/08/20 Reported Advair 100-50 Diskus (Fluticasone/Salmeterol) 1 Each Disk.w.dev 1 Puff IH BID 05/08/20 Reported Comments Chest x-ray 05/17 reviewed CTA chest IMPRESSION: 1. No evidence for acute pulmonary embolus the level of the subsegmental branches. More peripheral vessels are not well assessed. 2. Are seen moderate bilateral pleural effusions are seen. 3. Lower atelectasis of the lower lobes and atelectasis of the middle lobe without obvious obstructing mass, etiology is uncertain. Of note there may be small hilar lymph nodes bilaterally that are secured by the pleural effusions and hilar infiltration. Consider further evaluation with bronchoscopy or short interval follow-up CT following resolution of the acute process to further delineate. 4. Indeterminate right adrenal nodule can be correlated with prior imaging is available otherwise close attention on follow-up is recommended. Impression . 1. Acute hypoxic and hypercapnic respiratory failure secondary to multifactorial etiologies including suspected chronic obstructive pulmonary disease with acute exacerbation, non-ST myocardial infarction, and cocaine overdose. Status post extubation 7 1 2. Underlying chronic obstructive pulmonary disease, clinically suspected. 3. Abnormal chest x-ray with prominent interstitial markings, probably related to mild interstitial edema.---improved 4. Abnormal troponin consistent with non-ST myocardial infarction. 5. Acute kidney injury-- improving 6. Abnormal LFTs. Could be related to hypoperfusion. 7. Urine drug screen positive for cocaine. 8. CT chest neg for PE 9. Arslan atelectasis 10. Delirium CT chest IMPRESSION: 1. No evidence for acute pulmonary embolus the level of the subsegmental branches. More peripheral vessels are not well assessed. 2. Are seen moderate bilateral pleural effusions are seen. 3. Lower atelectasis of the lower lobes and atelectasis of the middle lobe without obvious obstructing mass, etiology is uncertain. Of note there may be small hilar lymph nodes bilaterally that are secured by the pleural effusions and hilar infiltration. Consider further evaluation with bronchoscopy or short interval follow-up CT following resolution of the acute process to further delineate. 4. Indeterminate right adrenal nodule can be correlated with prior imaging is available otherwise close attention on follow-up is recommended. Plan . Continue supplemental oxygen and BIPAP at HS and PRN Did not do well with dysphasia study n.p.o. for now-- continue PPN for nutritional support Up in chair TID and as tolerated continue PRN Haldol Appreciate nephrology and cardiology input CTA reviewed-- will repeat CT in 2 months cont. IV steroids Cont. ABX Follow cardiology input Discussed with RT and RN TOÑA WAGONER MD May 20, 2020 09:45
--- NOTE | 2020-05-20 10:02 | PDOC ---
PROGRESS NOTES Subjective Subjective c/o mild dyspnea, denied any chest pain Objective Objective Vital Signs Date Time Temp Pulse Resp B/P (MAP) Pulse Ox O2 Delivery O2 Flow Rate FiO2 05/20/20 08:00 Nasal Cannula 4.0 05/20/20 07:00 97.9 101 22 112/64 (80) 93 97.9 Intake and Output 05/20/20 07:00 Intake Total 200 ml Output Total 900 ml Balance -700 ml Intake Oral 0 ml IV Total 200 ml Output Urine Total 900 ml # Voids 5 Physical Exam Abdomen: Normal bowel sounds, Soft, No tenderness Heart: Regular rate, Normal S1, Normal S2 Extremities: No clubbing, No cyanosis, No edema General: Cooperative, No acute distress, Other (INTUBATED AND SEDATED) HEENT: Atraumatic, PERRLA Lungs: Clear to auscultation MUSCULOSKELETAL: No joint tenderness, No deformity Neuro: Other (SEDATED) Psych/Mental Status: Other (SEDATED) Skin: No breakdown, No significant lesion Assessment Assessment 1. Acute on chronic respiratory failure secondary to combination of AECOPD and acute on chronic systolic and diastolic HF. s/p extubation 05/17. LVEF 45%. COVID negative. Pulmonary team following. 2. NSTEMI; highest trop 1.6.likely demand mediated/type II. Telemetry did not show any significant arrhythmias. Plan outpatient ischemic evaluation,, probably with statistical developer in [place]. 3. Severe EVY: last HD was last wk, improved since admission. Nephrology team following. 4. Mild transaminitis: resolved 5. HTN urgency: Better controlled 6. DM2: per PCP 7. Substance abuse; UDS + cocaine: Advised on abstinence Plan Plan of Care Problems Medical Problems: (1) Cocaine abuse Status: Acute (2) NSTEMI (non-ST elevated myocardial infarction) Status: Acute (3) Respiratory failure Status: Acute (4) Suspected COVID-19 virus infection Status: Acute Comment Review of Relevant I have reviewed the following items jeffrey (where applicable) has been applied. Labs Laboratory Tests Test 05/19/20 12:00 05/19/20 17:10 05/19/20 20:57 05/19/20 23:11 Glucose (Fingerstick) 184 mg/dL (70-99) 163 mg/dL (70-99) 117 mg/dL (70-99) 120 mg/dL (70-99) Test 05/20/20 02:35 White Blood Count 10.5 x10^3/uL (4.0-11.0) Red Blood Count 5.75 x10^6/uL (4.30-5.70) Hemoglobin 13.5 g/dL (13.0-17.5) Hematocrit 43.2 % (39.0-53.0) Mean Corpuscular Volume 75 fL (79-100) Mean Corpuscular Hemoglobin 23 pg (25-35) Mean Corpuscular Hemoglobin Concent 31 g/dL (31-37) Red Cell Distribution Width 16.1 % (11.5-14.5) Platelet Count 158 x10^3/uL (140-400) Neutrophils (%) (Auto) 87 % (31-73) Lymphocytes (%) (Auto) 10 % (24-48) Monocytes (%) (Auto) 3 % (0-9) Eosinophils (%) (Auto) 0 % (0-3) Basophils (%) (Auto) 0 % (0-3) Neutrophils # (Auto) 9.1 x10^3/uL (1.8-7.7) Lymphocytes # (Auto) 1.0 x10^3/uL (1.0-4.8) Monocytes # (Auto) 0.3 x10^3/uL (0.0-1.1) Eosinophils # (Auto) 0.0 x10^3/uL (0.0-0.7) Basophils # (Auto) 0.0 x10^3/uL (0.0-0.2) Sodium Level 139 mmol/L (136-145) Potassium Level 4.1 mmol/L (3.5-5.1) Chloride Level 102 mmol/L (98-107) Carbon Dioxide Level 39 mmol/L (21-32) Anion Gap (6-14) Blood Urea Nitrogen 36 mg/dL (8-26) Creatinine 1.1 mg/dL (0.7-1.3) Estimated GFR (Cockcroft-Gault) 83.8 BUN/Creatinine Ratio 33 (6-20) Glucose Level 177 mg/dL (70-99) Calcium Level 8.1 mg/dL (8.5-10.1) Total Bilirubin 0.9 mg/dL (0.2-1.0) Aspartate Amino Transf (AST/SGOT) 19 U/L (15-37) Alanine Aminotransferase (ALT/SGPT) 37 U/L (16-63) Alkaline Phosphatase 34 U/L (46-116) Total Protein 5.5 g/dL (6.4-8.2) Albumin 2.6 g/dL (3.4-5.0) Albumin/Globulin Ratio 0.9 (1.0-1.7) Microbiology 05/08/20 Blood Culture - Final, Complete NO GROWTH AFTER 5 DAYS Medications Current Medications Amino Acids/ Glycerin/ Electrolytes 1,000 ml @ 80 mls/hr [id number] IV Last administered on 05/19/20at 23:06; Start 05/19/20 at 11:15 Methylprednisolone Sodium Succinate (SOLU-Medrol 125MG VIAL) 60 mg BID IV Last administered on 05/19/20at 21:38; Start 05/19/20 at 21:00 Zolpidem Tartrate (Ambien) 5 mg PRN QHS PRN PO INSOMNIA; Start 05/19/20 at 10:30 Vitals/I & O Vital Sign - Last 24 Hours 05/19/20 05/19/20 05/19/20 05/19/20 10:05 11:11 12:05 14:31 Pulse 99 104 105 B/P (MAP) 164/99 (120) 164/93 (116) 146/95 (112) 176/103 05/19/20 05/19/20 05/19/20 05/19/20 15:00 19:45 20:00 20:41 Temp 98.7 98.0 98.7 98.0 Pulse 107 100 Resp 23 B/P (MAP) 151/92 (111) 164/80 (108) Pulse Ox 93 91 93 O2 Delivery Nasal Cannula Nasal Cannula Nasal Cannula BiPAP/CPAP O2 Flow Rate 4.0 4.0 4.0 05/19/20 05/19/20 05/20/20 05/20/20 23:07 23:15 00:40 03:53 Temp 98.9 98.4 98.9 98.4 Pulse 100 99 110 Resp 22 B/P (MAP) 179/103 179/103 (128) 160/101 (120) Pulse Ox 99 96 93 O2 Delivery BiPAP/CPAP BiPAP/CPAP Nasal Cannula O2 Flow Rate 4.0 05/20/20 05/20/20 05/20/20 04:15 07:00 08:00 Temp 97.9 97.9 Pulse 101 Resp 22 B/P (MAP) 112/64 (80) Pulse Ox 95 93 O2 Delivery BiPAP/CPAP Nasal Cannula Nasal Cannula O2 Flow Rate 4.0 4.0 Intake and Output 05/19/20 05/19/20 05/20/20 15:00 23:00 07:00 Intake Total 200 ml 0 ml 0 ml Output Total 300 ml 400 ml 200 ml Balance -100 ml -400 ml -200 ml WILLIAM BENAVIDEZ MD May 20, 2020 10:02
[2020-05-20 11:13] VITALS: BP 142/76
[2020-05-20] MEDS: ASPIRIN CHEWABLE 81 MG TABLET. PO SCH (12:39)
[2020-05-20] MEDS: methylPREDNISolone SOD SUCC PF 125 MG/2 ML VIAL. IV SCH ×2 (12:39→21:06)
[2020-05-20] MEDS: amLODIPine BESYLATE 10 MG TABLET PO SCH (12:40)
[2020-05-20] MEDS: hydrALAZINE 25 MG TABLET PO SCH ×2 (12:40→21:05)
[2020-05-20] MEDS: HEPARIN for SUB-Q USE 5,000 UNIT/ML VIAL. SQ SCH ×2 (12:49→21:12)
[2020-05-20] MEDS: AMINO AC 3%/ELECTROLYTE/GLYCER 1,000 ML IV SCH (12:55)
[2020-05-20] MEDS: INSULIN GLARGINE SYRINGE. SQ SCH (12:58)
--- NOTE | 2020-05-20 13:06 | PDOC ---
PROGRESS NOTES Chief Complaint Chief Complaint Respiratory failure requiring vent support 75% fio2 COPD ACUTE HYPOXIC / HYPERCAPNIC RESP FAILURE Slight improvement with persistent basilar density bilaterally more on the left. CXR 05/10 Screen COVID-19 virus infection neg 05/09 NSTEMI (non-ST elevated myocardial infarction) left ventricular systolic function is mildly impaired. Ejection Fraction is 45%. tricuspid regurgitation with an estimated PAP of 54 mmHg. COCAINE ABUSE, present on admit Morbid obesity EVY RENAL FX IMPROVING EVY Echogenic appearing bilateral kidneys probably medical renal disease., worse No evidence of hydronephrosis. negative COVID testing Consider further ischemic evaluation pending course of hospitalization Indeterminate right adrenal nodule can be correlated with prior imaging iF available otherwise close attention on follow-up Plan: ICU BED follow pulmonary recommendations for vent management. AC mode, remains intubated/sedated CARDIOLOGY FOLLOWING recommendations greatly appreciated. VENT SUPPORT heparin drip GI PROPHYLAXIS TAPERING IV STEROIDS covid 19 screen negative. Nephrology following cpk Echo to assess LV systolic function pending negative COVID testing review records from [facility] in [place], [place]. when available further ischemic evaluation pending course of hospitalization picc 05/10 BB moving forward with cocaine cessation counseling The patient was evaluated during the global COVID-19 pandemic, and that diagnosis was suspected/considered upon their initial presentation. Their evaluation, treatment and testing was consistent with current guidelines for patients who present with complaints or symptoms that may be related to COVID- 19. 38 MIN CC TIME VTE Prophylaxis Ordered VTE Prophylaxis Devices: Yes VTE Pharmacological Prophylaxi: Yes History of Present Illness History of Present Illness getting some po intake this AM, with speech therapy, thickened liquids, may have diet with supervision and thickened per speech oob to chair, doing better cont other, plan out of ICU, breathing better, start pt and ot and st Vitals Vitals Vital Signs Date Time Temp Pulse Resp B/P (MAP) Pulse Ox O2 Delivery O2 Flow Rate FiO2 05/20/20 12:40 95 142/76 05/20/20 11:13 98.5 20 97 Nasal Cannula 4.0 98.5 Physical Exam Physical Exam Heart: RRR Abdomen: obese Neurology: SEDATED General: Cooperative, No acute distress, Other (INTUBATED AND SEDATED) Heart: Regular rate, Normal S1, Normal S2 Lungs: Other (decrease bs) Abdomen: Normal bowel sounds, Soft, No tenderness Extremities: No clubbing, No cyanosis, No edema Skin: No breakdown, No significant lesion Labs LABS Laboratory Tests Test 05/19/20 17:10 05/19/20 20:57 05/19/20 23:11 05/20/20 02:35 Glucose (Fingerstick) 163 mg/dL (70-99) 117 mg/dL (70-99) 120 mg/dL (70-99) White Blood Count 10.5 x10^3/uL (4.0-11.0) Red Blood Count 5.75 x10^6/uL (4.30-5.70) Hemoglobin 13.5 g/dL (13.0-17.5) Hematocrit 43.2 % (39.0-53.0) Mean Corpuscular Volume 75 fL (79-100) Mean Corpuscular Hemoglobin 23 pg (25-35) Mean Corpuscular Hemoglobin Concent 31 g/dL (31-37) Red Cell Distribution Width 16.1 % (11.5-14.5) Platelet Count 158 x10^3/uL (140-400) Neutrophils (%) (Auto) 87 % (31-73) Lymphocytes (%) (Auto) 10 % (24-48) Monocytes (%) (Auto) 3 % (0-9) Eosinophils (%) (Auto) 0 % (0-3) Basophils (%) (Auto) 0 % (0-3) Neutrophils # (Auto) 9.1 x10^3/uL (1.8-7.7) Lymphocytes # (Auto) 1.0 x10^3/uL (1.0-4.8) Monocytes # (Auto) 0.3 x10^3/uL (0.0-1.1) Eosinophils # (Auto) 0.0 x10^3/uL (0.0-0.7) Basophils # (Auto) 0.0 x10^3/uL (0.0-0.2) Sodium Level 139 mmol/L (136-145) Potassium Level 4.1 mmol/L (3.5-5.1) Chloride Level 102 mmol/L (98-107) Carbon Dioxide Level 39 mmol/L (21-32) Anion Gap (6-14) Blood Urea Nitrogen 36 mg/dL (8-26) Creatinine 1.1 mg/dL (0.7-1.3) Estimated GFR (Cockcroft-Gault) 83.8 BUN/Creatinine Ratio 33 (6-20) Glucose Level 177 mg/dL (70-99) Calcium Level 8.1 mg/dL (8.5-10.1) Total Bilirubin 0.9 mg/dL (0.2-1.0) Aspartate Amino Transf (AST/SGOT) 19 U/L (15-37) Alanine Aminotransferase (ALT/SGPT) 37 U/L (16-63) Alkaline Phosphatase 34 U/L (46-116) Total Protein 5.5 g/dL (6.4-8.2) Albumin 2.6 g/dL (3.4-5.0) Albumin/Globulin Ratio 0.9 (1.0-1.7) Test 05/20/20 11:45 Glucose (Fingerstick) 82 mg/dL (70-99) Assessment and Plan Assessmemt and Plan Problems Medical Problems: (1) Cocaine abuse Status: Acute (2) NSTEMI (non-ST elevated myocardial infarction) Status: Acute (3) Respiratory failure Status: Acute (4) Suspected COVID-19 virus infection Status: Acute Comment Review of Relevant I have reviewed the following items jeffrey (where applicable) has been applied. Labs Laboratory Tests Test 05/18/20 18:21 05/18/20 23:44 05/19/20 04:45 05/19/20 06:18 Glucose (Fingerstick) 154 mg/dL (70-99) 154 mg/dL (70-99) 167 mg/dL (70-99) White Blood Count 10.6 x10^3/uL (4.0-11.0) Red Blood Count 5.88 x10^6/uL (4.30-5.70) Hemoglobin 13.7 g/dL (13.0-17.5) Hematocrit 43.8 % (39.0-53.0) Mean Corpuscular Volume 75 fL (79-100) Mean Corpuscular Hemoglobin 23 pg (25-35) Mean Corpuscular Hemoglobin Concent 31 g/dL (31-37) Red Cell Distribution Width 16.6 % (11.5-14.5) Platelet Count 143 x10^3/uL (140-400) Neutrophils (%) (Auto) % (31-73) Lymphocytes (%) (Auto) % (24-48) Monocytes (%) (Auto) % (0-9) Eosinophils (%) (Auto) % (0-3) Basophils (%) (Auto) % (0-3) Neutrophils # (Auto) x10^3/uL (1.8-7.7) Lymphocytes # (Auto) x10^3/uL (1.0-4.8) Monocytes # (Auto) x10^3/uL (0.0-1.1) Eosinophils # (Auto) x10^3/uL (0.0-0.7) Basophils # (Auto) x10^3/uL (0.0-0.2) Segmented Neutrophils % 93 % (35-66) Lymphocytes % 4 % (24-48) Monocytes % 3 % (0-10) Toxic Granulation Slight Platelet Estimate Adequate (ADEQUATE) Hypochromasia Slight Anisocytosis Slight Microcytosis Slight Sodium Level 142 mmol/L (136-145) Potassium Level 4.3 mmol/L (3.5-5.1) Chloride Level 103 mmol/L (98-107) Carbon Dioxide Level 36 mmol/L (21-32) Anion Gap 3 (6-14) Blood Urea Nitrogen 36 mg/dL (8-26) Creatinine 1.0 mg/dL (0.7-1.3) Estimated GFR (Cockcroft-Gault) 93.5 BUN/Creatinine Ratio 36 (6-20) Glucose Level 176 mg/dL (70-99) Calcium Level 8.5 mg/dL (8.5-10.1) Total Bilirubin 0.6 mg/dL (0.2-1.0) Aspartate Amino Transf (AST/SGOT) 20 U/L (15-37) Alanine Aminotransferase (ALT/SGPT) 26 U/L (16-63) Alkaline Phosphatase 37 U/L (46-116) Total Protein 5.2 g/dL (6.4-8.2) Albumin 2.6 g/dL (3.4-5.0) Albumin/Globulin Ratio 1.0 (1.0-1.7) Test 05/19/20 08:18 05/19/20 12:00 05/19/20 17:10 05/19/20 20:57 Glucose (Fingerstick) 165 mg/dL (70-99) 184 mg/dL (70-99) 163 mg/dL (70-99) 117 mg/dL (70-99) Test 05/19/20 23:11 05/20/20 02:35 05/20/20 11:45 Glucose (Fingerstick) 120 mg/dL (70-99) 82 mg/dL (70-99) White Blood Count 10.5 x10^3/uL (4.0-11.0) Red Blood Count 5.75 x10^6/uL (4.30-5.70) Hemoglobin 13.5 g/dL (13.0-17.5) Hematocrit 43.2 % (39.0-53.0) Mean Corpuscular Volume 75 fL (79-100) Mean Corpuscular Hemoglobin 23 pg (25-35) Mean Corpuscular Hemoglobin Concent 31 g/dL (31-37) Red Cell Distribution Width 16.1 % (11.5-14.5) Platelet Count 158 x10^3/uL (140-400) Neutrophils (%) (Auto) 87 % (31-73) Lymphocytes (%) (Auto) 10 % (24-48) Monocytes (%) (Auto) 3 % (0-9) Eosinophils (%) (Auto) 0 % (0-3) Basophils (%) (Auto) 0 % (0-3) Neutrophils # (Auto) 9.1 x10^3/uL (1.8-7.7) Lymphocytes # (Auto) 1.0 x10^3/uL (1.0-4.8) Monocytes # (Auto) 0.3 x10^3/uL (0.0-1.1) Eosinophils # (Auto) 0.0 x10^3/uL (0.0-0.7) Basophils # (Auto) 0.0 x10^3/uL (0.0-0.2) Sodium Level 139 mmol/L (136-145) Potassium Level 4.1 mmol/L (3.5-5.1) Chloride Level 102 mmol/L (98-107) Carbon Dioxide Level 39 mmol/L (21-32) Anion Gap (6-14) Blood Urea Nitrogen 36 mg/dL (8-26) Creatinine 1.1 mg/dL (0.7-1.3) Estimated GFR (Cockcroft-Gault) 83.8 BUN/Creatinine Ratio 33 (6-20) Glucose Level 177 mg/dL (70-99) Calcium Level 8.1 mg/dL (8.5-10.1) Total Bilirubin 0.9 mg/dL (0.2-1.0) Aspartate Amino Transf (AST/SGOT) 19 U/L (15-37) Alanine Aminotransferase (ALT/SGPT) 37 U/L (16-63) Alkaline Phosphatase 34 U/L (46-116) Total Protein 5.5 g/dL (6.4-8.2) Albumin 2.6 g/dL (3.4-5.0) Albumin/Globulin Ratio 0.9 (1.0-1.7) Laboratory Tests Test 05/19/20 17:10 05/19/20 20:57 05/19/20 23:11 05/20/20 02:35 Glucose (Fingerstick) 163 mg/dL (70-99) 117 mg/dL (70-99) 120 mg/dL (70-99) White Blood Count 10.5 x10^3/uL (4.0-11.0) Red Blood Count 5.75 x10^6/uL (4.30-5.70) Hemoglobin 13.5 g/dL (13.0-17.5) Hematocrit 43.2 % (39.0-53.0) Mean Corpuscular Volume 75 fL (79-100) Mean Corpuscular Hemoglobin 23 pg (25-35) Mean Corpuscular Hemoglobin Concent 31 g/dL (31-37) Red Cell Distribution Width 16.1 % (11.5-14.5) Platelet Count 158 x10^3/uL (140-400) Neutrophils (%) (Auto) 87 % (31-73) Lymphocytes (%) (Auto) 10 % (24-48) Monocytes (%) (Auto) 3 % (0-9) Eosinophils (%) (Auto) 0 % (0-3) Basophils (%) (Auto) 0 % (0-3) Neutrophils # (Auto) 9.1 x10^3/uL (1.8-7.7) Lymphocytes # (Auto) 1.0 x10^3/uL (1.0-4.8) Monocytes # (Auto) 0.3 x10^3/uL (0.0-1.1) Eosinophils # (Auto) 0.0 x10^3/uL (0.0-0.7) Basophils # (Auto) 0.0 x10^3/uL (0.0-0.2) Sodium Level 139 mmol/L (136-145) Potassium Level 4.1 mmol/L (3.5-5.1) Chloride Level 102 mmol/L (98-107) Carbon Dioxide Level 39 mmol/L (21-32) Anion Gap (6-14) Blood Urea Nitrogen 36 mg/dL (8-26) Creatinine 1.1 mg/dL (0.7-1.3) Estimated GFR (Cockcroft-Gault) 83.8 BUN/Creatinine Ratio 33 (6-20) Glucose Level 177 mg/dL (70-99) Calcium Level 8.1 mg/dL (8.5-10.1) Total Bilirubin 0.9 mg/dL (0.2-1.0) Aspartate Amino Transf (AST/SGOT) 19 U/L (15-37) Alanine Aminotransferase (ALT/SGPT) 37 U/L (16-63) Alkaline Phosphatase 34 U/L (46-116) Total Protein 5.5 g/dL (6.4-8.2) Albumin 2.6 g/dL (3.4-5.0) Albumin/Globulin Ratio 0.9 (1.0-1.7) Test 05/20/20 11:45 Glucose (Fingerstick) 82 mg/dL (70-99) Microbiology 05/08/20 Blood Culture - Final, Complete NO GROWTH AFTER 5 DAYS Medications Current Medications Propofol 50 ml @ As Directed STK-MED ONCE IV ; Start 05/08/20 at 07:33; Stop 05/08/20 at 07:33; Status DC Propofol 100 ml @ 0 mls/hr CONT PRN IV SEE PROTOCOL Last administered on 05/18/20at 04:04; Start 05/08/20 at 07:45; Stop 05/18/20 at 18:04; Status DC Fentanyl Citrate (Fentanyl 2ml Vial) 50 mcg PRN Q1HR PRN IV SEE COMMENTS Last administered on 05/08/20at 12:44; Start 05/08/20 at 07:45; Stop 05/18/20 at 18:04; Status DC Chlorhexidine Gluconate (Peridex) 15 ml BID MM Last administered on 05/16/20at 20:05; Start 05/08/20 at 09:00; Stop 05/17/20 at 10:45; Status DC Etomidate (Amidate) 20 mg 1X ONCE IV Last administered on 05/08/20at 07:30; Start 05/08/20 at 07:45; Stop 05/08/20 at 09:04; Status DC Succinylcholine Chloride (Anectine) 100 mg 1X ONCE IV Last administered on 05/08/20at 07:31; Start 05/08/20 at 07:45; Stop 05/08/20 at 09:04; Status DC Albuterol/ Ipratropium (Duoneb) 6 ml 1X ONCE NEB ; Start 05/08/20 at 07:45; Stop 05/08/20 at 09:04; Status DC Methylprednisolone Sodium Succinate (SOLU-Medrol 125MG VIAL) 125 mg 1X ONCE IV Last administered on 05/08/20at 08:31; Start 05/08/20 at 07:45; Stop 05/08/20 at 09:04; Status DC Albuterol Sulfate (Ventolin Neb Soln) 2.5 mg 1X ONCE NEB ; Start 05/08/20 at 07:45; Stop 05/08/20 at 08:56; Status DC Ceftriaxone Sodium (Rocephin) 1 gm 1X ONCE IVP Last administered on 05/08/20at 08:31; Start 05/08/20 at 07:45; Stop 05/08/20 at 09:04; Status DC Propofol (Diprivan) 40 mg 1X ONCE IV ; Start 05/08/20 at 08:00; Stop 05/08/20 at 09:04; Status DC Fentanyl Citrate 30 ml @ 0 mls/hr CONT PRN IV SEE PROTOCOL Last administered on 05/18/20at 04:52; Start 05/08/20 at 08:15; Stop 05/18/20 at 18:42; Status DC Midazolam HCl 100 ml @ 0 mls/hr CONT PRN IV SEE PROTOCOL Last administered on 05/17/20at 08:57; Start 05/08/20 at 08:15; Stop 05/18/20 at 18:04; Status DC Sodium Chloride 1,000 ml @ 1,000 mls/hr 1X ONCE IV Last administered on 05/08/20at 08:47; Start 05/08/20 at 08:30; Stop 05/08/20 at 09:29; Status DC Midazolam HCl (Versed) 5 mg 1X ONCE IV Last administered on 05/08/20at 08:33; Start 05/08/20 at 08:30; Stop 05/08/20 at 09:04; Status DC Ondansetron HCl (Zofran) 4 mg PRN Q8HRS PRN IV NAUSEA/VOMITING; Start 05/08/20 at 08:45; Stop 05/09/20 at 08:44; Status DC Aspirin (Aspirin Rectal Supp) 300 mg 1X ONCE ME Last administered on 05/08/20at 10:00; Start 05/08/20 at 08:45; Stop 05/08/20 at 09:04; Status DC Sodium Chloride (Normal Saline Flush) 3 ml QSHIFT PRN IV AFTER MEDS AND BLOOD DRAWS; Start 05/08/20 at 11:30; Stop 05/08/20 at 18:55; Status DC Sodium Chloride 1,000 ml @ 60 mls/hr Q32H78F IV Last administered on 05/08/20at 12:53; Start 05/08/20 at 11:24; Stop 05/08/20 at 18:55; Status DC Ondansetron HCl (Zofran) 4 mg PRN Q4HRS PRN IV NAUSEA/VOMITING; Start 05/08/20 at 11:30; Stop 05/08/20 at 18:55; Status DC Acetaminophen (Tylenol Supp) 650 mg PRN Q4HRS PRN ME TEMP OVER 100.4F OR MILD PAIN; Start 05/08/20 at 11:30; Stop 05/08/20 at 18:47; Status DC Sodium Monofluorophosphate (Fleet Adult) 133 ml PRN DAILY PRN ME CONSTIPATION; Start 05/08/20 at 11:30; Stop 05/08/20 at 18:55; Status DC Albuterol/ Ipratropium (Duoneb) 3 ml Q4H NEB ; Start 05/08/20 at 11:30; Stop 05/08/20 at 15:37; Status DC Enoxaparin Sodium (Lovenox 40mg Syringe) 40 mg DAILY SQ ; Start 05/09/20 at 09:00; Stop 05/08/20 at 18:54; Status DC Pantoprazole Sodium (PROTONIX VIAL for IV PUSH) 40 mg DAILYAC IVP Last administered on 05/19/20at 06:56; Start 05/08/20 at 11:30 Etomidate (Amidate) 40 mg 1X ONCE IV Last administered on 05/08/20at 07:57; Start 05/08/20 at 07:55; Stop 05/08/20 at 12:05; Status DC Methylprednisolone Sodium Succinate (SOLU-Medrol 125MG VIAL) 60 mg Q8HRS IV Last administered on 05/19/20at 06:19; Start 05/08/20 at 14:00; Stop 05/19/20 at 11:32; Status DC Midazolam HCl (Versed) 5 mg PRN Q15MIN PRN IV SEDATION Last administered on 05/08/20at 12:32; Start 05/08/20 at 08:00 Enoxaparin Sodium (Lovenox Per Pharmacy Prophylaxis Dosing) 1 each PRN DAILY PRN MC SEE COMMENTS; Start 05/08/20 at 16:00; Stop 05/10/20 at 09:14; Status DC Sodium Chloride (Normal Saline Flush) 3 ml QSHIFT PRN IV AFTER MEDS AND BLOOD DRAWS; Start 05/08/20 at 16:15 Sodium Chloride 1,000 ml @ 50 mls/hr Q20H IV Last administered on 05/18/20at 17:00; Start 05/08/20 at 16:01; Stop 05/19/20 at 11:02; Status DC Ondansetron HCl (Zofran) 4 mg PRN Q4HRS PRN IV NAUSEA/VOMITING; Start 05/08/20 at 16:15 Acetaminophen (Tylenol Supp) 650 mg PRN Q4HRS PRN ME TEMP OVER 100.4F OR MILD PAIN; Start 05/08/20 at 16:15 Sodium Monofluorophosphate (Fleet Adult) 133 ml PRN DAILY PRN ME CONSTIPATION; Start 05/08/20 at 16:15 Albuterol/ Ipratropium (Duoneb) 3 ml Q4H NEB ; Start 05/08/20 at 16:15; Stop 05/08/20 at 18:45; Status DC Enoxaparin Sodium (Lovenox 40mg Syringe) 40 mg Q24H SQ Last administered on 05/09/20at 17:04; Start 05/08/20 at 17:00; Stop 05/10/20 at 09:14; Status DC Ceftriaxone Sodium (Rocephin) 1 gm Q24H IVP Last administered on 05/19/20at 08:19; Start 05/09/20 at 08:00; Stop 05/19/20 at 11:32; Status DC Aspirin (Aspirin Chewable) 81 mg DAILYWBKFT PO ; Start 05/08/20 at 17:30; Stop 05/08/20 at 17:27; Status DC Aspirin (Aspirin Chewable) 81 mg DAILYWBKFT PO Last administered on 05/20/20at 12:39; Start 05/09/20 at 08:00 Albuterol Sulfate (Ventolin Neb Soln) 2.5 mg PRN Q4HRS PRN NEB SHORTNESS OF BREATH; Start 05/08/20 at 19:00 Amlodipine Besylate (Norvasc) 10 mg 1X ONCE PO Last administered on 05/09/20at 14:31; Start 05/09/20 at 14:30; Stop 05/09/20 at 14:31; Status DC Clonidine HCl (Catapres) 0.1 mg PRN Q2HR PRN PO HYPERTENSION Last administered on 05/13/20at 10:18; Start 05/09/20 at 14:30; Stop 05/13/20 at 11:34; Status DC Enoxaparin Sodium (Lovenox Per Pharmacy Treatment Dosing) 1 each PRN DAILY PRN MC SEE COMMENTS; Start 05/10/20 at 09:30; Status Cancel Enoxaparin Sodium (Lovenox 120mg Syringe) 120 mg DAILY SQ Last administered on 05/10/20at 10:19; Start 05/10/20 at 10:00; Stop 05/10/20 at 10:48; Status DC Heparin Sodium/ Dextrose 250 ml @ 10 mls/hr CONT PRN IV PER PROTOCOL Last administered on 05/11/20at 20:59; Start 05/10/20 at 11:00; Stop 05/13/20 at 13:35; Status DC Heparin Sodium (Porcine) (Heparin Sodium) 2,950 unit PRN Q6HRS PRN IV FOR UFH LEVEL LESS THAN 0.2; Start 05/10/20 at 11:00; Stop 05/13/20 at 13:36; Status DC Polyethylene Glycol (miraLAX PACKET) 17 gm PRN DAILY PRN PO CONSTIPATION Last administered on 05/11/20at 11:20; Start 05/10/20 at 16:00 Lidocaine HCl (Buffered Lidocaine 1%) 3 ml STK-MED ONCE .ROUTE ; Start 05/11/20 at 13:30; Stop 05/11/20 at 13:30; Status DC Lidocaine HCl (Buffered Lidocaine 1%) 6 ml 1X ONCE INJ Last administered on 05/11/20at 13:50; Start 05/11/20 at 14:00; Stop 05/11/20 at 14:01; Status DC Sodium Chloride 1,000 ml @ 1,000 mls/hr Q1H PRN IV hypotension; Start 05/11/20 at 15:19; Stop 05/11/20 at 21:18; Status DC Info (PHARMACY MONITORING -- do not chart) 1 each PRN DAILY PRN MC SEE COMMENTS; Start 05/11/20 at 15:30; Status Cancel Info (PHARMACY MONITORING -- do not chart) 1 each PRN DAILY PRN MC SEE COMMENTS; Start 05/11/20 at 15:30; Status UNV Sodium Chloride 1,000 ml @ 1,000 mls/hr Q1H PRN IV hypotension; Start 05/12/20 at 08:28; Stop 05/12/20 at 14:27; Status DC Albumin Human 200 ml @ 200 mls/hr 1X PRN PRN IV Hypotension; Start 05/12/20 at 08:30; Stop 05/12/20 at 14:29; Status DC Sodium Chloride (Normal Saline Flush) 10 ml 1X PRN PRN IV AP catheter pack; Start 05/12/20 at 08:30; Stop 05/13/20 at 08:29; Status DC Sodium Chloride (Normal Saline Flush) 10 ml 1X PRN PRN IV AIRLINE PILOT catheter pack; Start 05/12/20 at 08:30; Stop 05/13/20 at 08:29; Status DC Sodium Chloride 1,000 ml @ 400 mls/hr Q2H30M PRN IV PATENCY; Start 05/12/20 at 08:28; Stop 05/12/20 at 20:27; Status DC Info (PHARMACY MONITORING -- do not chart) 1 each PRN DAILY PRN MC SEE COMMENTS; Start 05/12/20 at 08:30; Status UNV Info (PHARMACY MONITORING -- do not chart) 1 each PRN DAILY PRN MC SEE COMMENTS; Start 05/12/20 at 08:30 Info (Anti-Coagulation Monitoring By Pharmacy) 1 each PRN DAILY PRN MC SEE COMMENTS; Start 05/12/20 at 09:15; Stop 05/13/20 at 13:35; Status DC Iohexol (Omnipaque 350 Mg/ml) 100 ml 1X ONCE IV Last administered on 05/12/20at 15:45; Start 05/12/20 at 11:45; Stop 05/12/20 at 11:46; Status DC Info (CONTRAST GIVEN -- Rx MONITORING) 1 each PRN DAILY PRN MC SEE COMMENTS; Start 05/12/20 at 11:45; Stop 05/14/20 at 11:44; Status DC Insulin Human Lispro (HumaLOG) 0-5 UNITS TIDWMEALS SQ Last administered on 05/12/20at 18:16; Start 05/12/20 at 13:00; Stop 05/12/20 at 19:02; Status DC Dextrose (Dextrose 50%-Water Syringe) 12.5 gm PRN Q15MIN PRN IV SEE COMMENTS; Start 05/12/20 at 12:45 Dextrose (Iv Dextrose 5%) 250 ml PRN Q15MIN PRN IV SEE COMMENTS; Start 05/12/20 at 12:45 Insulin Human Lispro (HumaLOG) 0-5 UNITS Q6HRS SQ Last administered on 05/18/20at 06:15; Start 05/13/20 at 00:00 Labetalol HCl (Normodyne Iv Push) 10 mg PRN Q4HRS PRN IVP HYPERTENSION Last administered on 05/19/20at 09:04; Start 05/13/20 at 12:00 Sodium Chloride 1,000 ml @ 1,000 mls/hr Q1H PRN IV hypotension; Start 05/13/20 at 12:00; Stop 05/13/20 at 19:00; Status DC Sodium Chloride 1,000 ml @ 400 mls/hr Q2H30M PRN IV PATENCY; Start 05/13/20 at 12:00; Stop 05/13/20 at 19:00; Status DC Info (PHARMACY MONITORING -- do not chart) 1 each PRN DAILY PRN MC SEE COMMENTS; Start 05/13/20 at 12:00; Status UNV Info (PHARMACY MONITORING -- do not chart) 1 each PRN DAILY PRN MC SEE COMMENTS; Start 05/13/20 at 12:00; Status UNV Heparin Sodium (Porcine) (Heparin Sodium) 5,000 unit Q12HR SQ Last administered on 05/20/20at 12:49; Start 05/13/20 at 21:00 Amlodipine Besylate (Norvasc) 10 mg DAILY PO Last administered on 05/20/20at 12:40; Start 05/14/20 at 12:00 Hydralazine HCl (Apresoline Inj) 25 mg TID IVP Last administered on 05/16/20at 07:42; Start 05/14/20 at 12:00; Stop 05/16/20 at 13:17; Status DC Furosemide (Lasix) 80 mg 1X ONCE IVP Last administered on 05/14/20at 12:03; Start 05/14/20 at 12:00; Stop 05/14/20 at 12:01; Status DC Hydralazine HCl (Apresoline Inj) 10 mg PRN Q4HRS PRN IVP ELEVATED BP, SEE COMMENTS Last administered on 05/19/20at 23:07; Start 05/16/20 at 12:15 Hydralazine HCl (Apresoline) 50 mg TID PO ; Start 05/16/20 at 14:00; Stop 05/16/20 at 13:25; Status DC Carvedilol (Coreg) 12.5 mg BIDWMEALS PO ; Start 05/16/20 at 17:00; Stop 05/16/20 at 13:25; Status DC Carvedilol (Coreg) 3.125 mg BIDWMEALS PO Last administered on 05/16/20at 17:30; Start 05/16/20 at 17:00; Stop 05/17/20 at 08:15; Status DC Hydralazine HCl (Apresoline) 25 mg BID PO Last administered on 05/20/20at 12:40; Start 05/16/20 at 21:00 Carvedilol (Coreg) 6.25 mg BIDWMEALS PO Last administered on 05/18/20at 18:24; Start 05/17/20 at 08:15 Dexmedetomidine HCl 400 mcg/ Sodium Chloride 100 ml @ 0 mls/hr CONT PRN IV PER PROTOCOL Last administered on 05/18/20at 04:06; Start 05/17/20 at 09:45; Stop 05/19/20 at 11:32; Status DC Sodium Chloride 500 ml @ 500 mls/hr 1X PRN PRN IV PER PROTOCOL; Start 05/17/20 at 09:45 Atropine Sulfate (ATROPINE 0.5mg SYRINGE) 0.5 mg PRN Q5MIN PRN IV SEE COMMENTS; Start 05/17/20 at 09:45 Haloperidol Lactate (Haldol Inj) 5 mg Q8HRS IVP Last administered on 05/18/20at 06:07; Start 05/17/20 at 14:00; Stop 05/18/20 at 18:42; Status DC Furosemide (Lasix) 40 mg 1X ONCE IVP Last administered on 05/17/20at 18:00; Start 05/17/20 at 17:30; Stop 05/17/20 at 17:31; Status DC Furosemide (Lasix) 40 mg DAILY IVP Last administered on 05/18/20at 08:03; Start 05/18/20 at 09:00; Stop 05/18/20 at 12:32; Status DC Insulin Glargine (Lantus Syringe) 14 unit DAILY SQ Last administered on 05/20/20at 12:58; Start 05/18/20 at 11:00 Furosemide (Lasix) 40 mg PRN DAILY PRN IVP SEE COMMENTS; Start 05/18/20 at 12:45 Haloperidol Lactate (Haldol Inj) 5 mg PRN Q8HRS PRN IVP DELIRIUM; Start 05/18/20 at 18:45 Zolpidem Tartrate (Ambien) 5 mg PRN QHS PRN PO INSOMNIA; Start 05/19/20 at 10:30 Amino Acids/ Glycerin/ Electrolytes 1,000 ml @ 80 mls/hr [id number] IV Last administered on 05/20/20at 12:55; Start 05/19/20 at 11:15 Methylprednisolone Sodium Succinate (SOLU-Medrol 125MG VIAL) 60 mg BID IV Last administered on 05/20/20at 12:39; Start 05/19/20 at 21:00 Active Scripts Active Reported [amlodipine benazep] Unknown Dose PO Proventil Hfa (Albuterol Sulfate) 6.7 Gm Hfa.aer.ad 1 Puff INH PRN Q6HRS PRN Advair 100-50 Diskus (Fluticasone/Salmeterol) 1 Each Disk.w.dev 1 Puff IH BID Vitals/I & O Vital Sign - Last 24 Hours 05/19/20 05/19/20 05/19/20 05/19/20 14:31 15:00 19:45 20:00 Temp 98.7 98.0 98.7 98.0 Pulse 105 107 100 Resp 18 23 B/P (MAP) 176/103 151/92 (111) 164/80 (108) Pulse Ox 93 91 O2 Delivery Nasal Cannula Nasal Cannula Nasal Cannula O2 Flow Rate 4.0 4.0 4.0 05/19/20 05/19/20 05/19/20 05/20/20 20:41 23:07 23:15 00:40 Temp 98.9 98.9 Pulse 100 99 Resp B/P (MAP) 179/103 179/103 (128) Pulse Ox 93 99 96 O2 Delivery BiPAP/CPAP BiPAP/CPAP BiPAP/CPAP 05/20/20 05/20/20 05/20/20 05/20/20 03:53 04:15 07:00 08:00 Temp 98.4 97.9 98.4 97.9 Pulse 110 101 Resp 22 22 B/P (MAP) 160/101 (120) 112/64 (80) Pulse Ox 93 95 93 O2 Delivery Nasal Cannula BiPAP/CPAP Nasal Cannula Nasal Cannula O2 Flow Rate 4.0 4.0 4.0 05/20/20 05/20/20 05/20/20 11:13 12:40 12:40 Temp 98.5 98.5 Pulse 95 95 95 Resp 20 B/P (MAP) 142/76 (98) 142/76 142/76 Pulse Ox 97 O2 Delivery Nasal Cannula O2 Flow Rate 4.0 Intake and Output 05/19/20 05/19/20 05/20/20 15:00 23:00 07:00 Intake Total 200 ml 0 ml 0 ml Output Total 300 ml 400 ml 200 ml Balance -100 ml -400 ml -200 ml Justicifation of Admission Dx: Justifications for Admission: Justification of Admission Dx: Yes CHF: Hemodynamic Instability Respiratory Failure: Mechanical Ventilation Acute COPD Exacerbation: Acute COPD Exacerbation Altered Mental Status: Altered Mental Status SANGEETA SUERO MD May 20, 2020 13:06
[2020-05-20] MEDS: CARVEDILOL 6.25 MG TABLET. PO SCH ×2 (13:13→17:42)
[2020-05-20] MEDS: PANTOPRAZOLE IV PUSH 40 MG VIAL. IVP SCH (13:14)
[2020-05-20 14:37] VITALS: BP 139/92
[2020-05-20 19:31] VITALS: BP 131/91
[2020-05-20 22:38] VITALS: BP 127/95
--- NOTE | 2020-05-20 22:58 | NUR ---
balke pt refused bipap. I asked him 3 times if he would wear it. The answer was still no.
[2020-05-21] MEDS: AMINO AC 3%/ELECTROLYTE/GLYCER 1,000 ML IV SCH (01:10)
[2020-05-21 03:34] VITALS: BP 134/90
[2020-05-21] MEDS: INSULIN LISPRO 300 UNITS/3 ML VIAL. SQ SCH ×3 (05:38→17:00)
[2020-05-21 07:00] VITALS: BP 139/98
[2020-05-21] MEDS: ASPIRIN CHEWABLE 81 MG TABLET. PO SCH (09:01)
[2020-05-21] MEDS: PANTOPRAZOLE IV PUSH 40 MG VIAL. IVP SCH (09:01)
[2020-05-21] MEDS: methylPREDNISolone SOD SUCC PF 125 MG/2 ML VIAL. IV SCH ×2 (09:01→21:28)
[2020-05-21] MEDS: amLODIPine BESYLATE 10 MG TABLET PO SCH (09:02)
[2020-05-21] MEDS: CARVEDILOL 6.25 MG TABLET. PO SCH ×2 (09:02→17:27)
[2020-05-21] MEDS: hydrALAZINE 25 MG TABLET PO SCH ×2 (09:03→21:27)
[2020-05-21] MEDS: INSULIN GLARGINE SYRINGE. SQ SCH (09:11)
[2020-05-21] MEDS: HEPARIN for SUB-Q USE 5,000 UNIT/ML VIAL. SQ SCH ×2 (09:12→21:34)
[2020-05-21 11:00] VITALS: BP 146/95
--- NOTE | 2020-05-21 11:19 | PDOC ---
PULMONARY PROGRESS NOTES Subjective Patient continues to improve clinically wore BiPAP overnight working with physical therapy and Occupational Therapy today Vitals Vital Signs Date Time Temp Pulse Resp B/P (MAP) Pulse Ox O2 Delivery O2 Flow Rate FiO2 05/21/20 09:03 87 139/98 05/21/20 08:14 Nasal Cannula 4.0 05/21/20 07:00 98.5 22 98 98.5 ROS: No Nausea, No Chest Pain, No Abdominal Pain, No Increase Cough General: Alert Lungs: Other (decrease bs) Cardiovascular: S1 Abdomen: Soft, Other (obese) Extremities: Other (BLE +1) Skin: Warm, Dry Labs Laboratory Tests Test 05/19/20 12:00 05/19/20 17:10 05/19/20 20:57 05/19/20 23:11 Glucose (Fingerstick) 184 mg/dL (70-99) 163 mg/dL (70-99) 117 mg/dL (70-99) 120 mg/dL (70-99) Test 05/20/20 02:35 05/20/20 11:45 05/20/20 17:27 05/20/20 20:38 White Blood Count 10.5 x10^3/uL (4.0-11.0) Red Blood Count 5.75 x10^6/uL (4.30-5.70) Hemoglobin 13.5 g/dL (13.0-17.5) Hematocrit 43.2 % (39.0-53.0) Mean Corpuscular Volume 75 fL (79-100) Mean Corpuscular Hemoglobin 23 pg (25-35) Mean Corpuscular Hemoglobin Concent 31 g/dL (31-37) Red Cell Distribution Width 16.1 % (11.5-14.5) Platelet Count 158 x10^3/uL (140-400) Neutrophils (%) (Auto) 87 % (31-73) Lymphocytes (%) (Auto) 10 % (24-48) Monocytes (%) (Auto) 3 % (0-9) Eosinophils (%) (Auto) 0 % (0-3) Basophils (%) (Auto) 0 % (0-3) Neutrophils # (Auto) 9.1 x10^3/uL (1.8-7.7) Lymphocytes # (Auto) 1.0 x10^3/uL (1.0-4.8) Monocytes # (Auto) 0.3 x10^3/uL (0.0-1.1) Eosinophils # (Auto) 0.0 x10^3/uL (0.0-0.7) Basophils # (Auto) 0.0 x10^3/uL (0.0-0.2) Sodium Level 139 mmol/L (136-145) Potassium Level 4.1 mmol/L (3.5-5.1) Chloride Level 102 mmol/L (98-107) Carbon Dioxide Level 39 mmol/L (21-32) Anion Gap (6-14) Blood Urea Nitrogen 36 mg/dL (8-26) Creatinine 1.1 mg/dL (0.7-1.3) Estimated GFR (Cockcroft-Gault) 83.8 BUN/Creatinine Ratio 33 (6-20) Glucose Level 177 mg/dL (70-99) Calcium Level 8.1 mg/dL (8.5-10.1) Total Bilirubin 0.9 mg/dL (0.2-1.0) Aspartate Amino Transf (AST/SGOT) 19 U/L (15-37) Alanine Aminotransferase (ALT/SGPT) 37 U/L (16-63) Alkaline Phosphatase 34 U/L (46-116) Total Protein 5.5 g/dL (6.4-8.2) Albumin 2.6 g/dL (3.4-5.0) Albumin/Globulin Ratio 0.9 (1.0-1.7) Glucose (Fingerstick) 82 mg/dL (70-99) 154 mg/dL (70-99) 154 mg/dL (70-99) Test 05/21/20 07:39 Glucose (Fingerstick) 146 mg/dL (70-99) Laboratory Tests Test 05/20/20 11:45 05/20/20 17:27 05/20/20 20:38 05/21/20 07:39 Glucose (Fingerstick) 82 mg/dL (70-99) 154 mg/dL (70-99) 154 mg/dL (70-99) 146 mg/dL (70-99) Medications Active Scripts Medications Dose Route/Sig Max Daily Dose Days Date Category [amlodipine benazep] Unknown Dose PO 05/08/20 Reported Proventil Hfa (Albuterol Sulfate) 6.7 Gm Hfa.aer.ad 1 Puff INH PRN Q6HRS PRN 05/08/20 Reported Advair 100-50 Diskus (Fluticasone/Salmeterol) 1 Each Disk.w.dev 1 Puff IH BID 05/08/20 Reported Comments Chest x-ray 05/17 reviewed CTA chest IMPRESSION: 1. No evidence for acute pulmonary embolus the level of the subsegmental branches. More peripheral vessels are not well assessed. 2. Are seen moderate bilateral pleural effusions are seen. 3. Lower atelectasis of the lower lobes and atelectasis of the middle lobe without obvious obstructing mass, etiology is uncertain. Of note there may be small hilar lymph nodes bilaterally that are secured by the pleural effusions and hilar infiltration. Consider further evaluation with bronchoscopy or short interval follow-up CT following resolution of the acute process to further delineate. 4. Indeterminate right adrenal nodule can be correlated with prior imaging is available otherwise close attention on follow-up is recommended. Impression . 1. Acute hypoxic and hypercapnic respiratory failure secondary to multifactorial etiologies including suspected chronic obstructive pulmonary disease with acute exacerbation, non-ST myocardial infarction, and cocaine overdose. Status post extubation 7 1 2. Underlying chronic obstructive pulmonary disease, clinically suspected. 3. Abnormal chest x-ray with prominent interstitial markings, probably related to mild interstitial edema.---improved 4. Abnormal troponin consistent with non-ST myocardial infarction. 5. Acute kidney injury-- improving 6. Abnormal LFTs. Could be related to hypoperfusion. 7. Urine drug screen positive for cocaine. 8. CT chest neg for PE 9. Arslan atelectasis 10. Delirium CT chest IMPRESSION: 1. No evidence for acute pulmonary embolus the level of the subsegmental branches. More peripheral vessels are not well assessed. 2. Are seen moderate bilateral pleural effusions are seen. 3. Lower atelectasis of the lower lobes and atelectasis of the middle lobe without obvious obstructing mass, etiology is uncertain. Of note there may be small hilar lymph nodes bilaterally that are secured by the pleural effusions and hilar infiltration. Consider further evaluation with bronchoscopy or short interval follow-up CT following resolution of the acute process to further delineate. 4. Indeterminate right adrenal nodule can be correlated with prior imaging is available otherwise close attention on follow-up is recommended. Plan . 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 Speech recs for dysphasia--- now on thickened liquids Up in chair TID and as tolerated continue PRN [place] Appreciate nephrology and cardiology input CTA reviewed-- will repeat CT in 2 months cont. IV steroids NEBS DVT/GI PPX Discussed with RT and RN TOÑA WAGONER MD May 21, 2020 11:19
--- NOTE | 2020-05-21 12:39 | PDOC ---
PROGRESS NOTES Subjective Subjective Feeling better, denies any chest pain Objective Objective Vital Signs Date Time Temp Pulse Resp B/P (MAP) Pulse Ox O2 Delivery O2 Flow Rate FiO2 05/21/20 11:00 98.4 83 22 146/95 (112) 97 Nasal Cannula 4.0 98.4 Intake and Output 05/21/20 07:00 Intake Total 100 ml Balance 100 ml Intake Oral 100 ml # Voids 7 # Bowel Movements 1 Physical Exam Abdomen: Normal bowel sounds, Soft, No tenderness Heart: Regular rate, Normal S1, Normal S2 Extremities: No clubbing, No cyanosis, No edema General: Cooperative, No acute distress, Other (INTUBATED AND SEDATED) HEENT: Atraumatic, PERRLA Lungs: Clear to auscultation MUSCULOSKELETAL: No joint tenderness, No deformity Neuro: Other (SEDATED) Psych/Mental Status: Other (SEDATED) Skin: No breakdown, No significant lesion Assessment Assessment 1. Acute on chronic respiratory failure secondary to combination of AECOPD and acute on chronic systolic and diastolic HF. s/p extubation 05/17. LVEF 45%. COVID negative. Pulmonary team following. 2. NSTEMI; highest trop 1.6.likely demand mediated/type II. Telemetry did not show any significant arrhythmias. 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 3. Severe EVY: last HD was last wk, improved since admission. Nephrology team following. 4. Mild transaminitis: resolved 5. HTN urgency: Better controlled 6. DM2: per PCP 7. Substance abuse; UDS + cocaine: Advised on abstinence Plan Plan of Care Problems Medical Problems: (1) Cocaine abuse Status: Acute (2) NSTEMI (non-ST elevated myocardial infarction) Status: Acute (3) Respiratory failure Status: Acute (4) Suspected COVID-19 virus infection Status: Acute Comment Review of Relevant I have reviewed the following items jeffrey (where applicable) has been applied. Labs Laboratory Tests Test 05/20/20 17:27 05/20/20 20:38 05/21/20 07:39 05/21/20 12:12 Glucose (Fingerstick) 154 mg/dL (70-99) 154 mg/dL (70-99) 146 mg/dL (70-99) 192 mg/dL (70-99) Microbiology 05/08/20 Blood Culture - Final, Complete NO GROWTH AFTER 5 DAYS Medications Current Medications Insulin Human Lispro (HumaLOG) 0-5 UNITS TIDWMEALS SQ ; Start 05/21/20 at 12:00 Vitals/I & O Vital Sign - Last 24 Hours 05/20/20 05/20/20 05/20/20 05/20/20 12:40 12:40 13:13 14:37 Temp 98.6 98.6 Pulse 95 95 95 90 Resp 22 B/P (MAP) 142/76 142/76 142/76 139/92 (108) Pulse Ox 95 O2 Delivery Nasal Cannula O2 Flow Rate 4.0 05/20/20 05/20/20 05/20/20 05/20/20 17:42 19:31 19:58 21:05 Temp 98.7 98.7 Pulse 90 99 99 Resp 16 B/P (MAP) 139/92 131/91 (104) 131/91 Pulse Ox 90 O2 Delivery Nasal Cannula Nasal Cannula O2 Flow Rate 4.0 4.0 05/20/20 05/21/20 05/21/20 05/21/20 22:38 03:34 07:00 08:14 Temp 98.7 98.3 98.5 98.7 98.3 98.5 Pulse 96 93 87 Resp 18 22 22 B/P (MAP) 127/95 (106) 134/90 (105) 139/98 (112) Pulse Ox 96 98 98 O2 Delivery Nasal Cannula BiPAP/CPAP BiPAP/CPAP Nasal Cannula O2 Flow Rate 4.0 4.0 05/21/20 05/21/20 05/21/20 05/21/20 09:02 09:02 09:03 11:00 Temp 98.4 98.4 Pulse 87 83 Resp 22 B/P (MAP) 139/98 139/98 139/98 146/95 (112) Pulse Ox 97 O2 Delivery Nasal Cannula O2 Flow Rate 4.0 Intake and Output 05/20/20 05/20/20 05/21/20 15:00 23:00 07:00 Intake Total 50 ml 50 ml Balance 50 ml 50 ml WILLIAM BENAVIDEZ MD May 21, 2020 12:39
[2020-05-21 15:00] VITALS: BP 168/95
--- NOTE | 2020-05-21 16:36 | PDOC ---
PROGRESS NOTES Chief Complaint Chief Complaint Respiratory failure requiring vent support 75% fio2 COPD ACUTE HYPOXIC / HYPERCAPNIC RESP FAILURE Slight improvement with persistent basilar density bilaterally more on the left. CXR 05/10 Screen COVID-19 virus infection neg 05/09 NSTEMI (non-ST elevated myocardial infarction) left ventricular systolic function is mildly impaired. Ejection Fraction is 45%. tricuspid regurgitation with an estimated PAP of 54 mmHg. COCAINE ABUSE, present on admit Morbid obesity EVY RENAL FX IMPROVING EVY Echogenic appearing bilateral kidneys probably medical renal disease., worse No evidence of hydronephrosis. negative COVID testing Consider further ischemic evaluation pending course of hospitalization Indeterminate right adrenal nodule can be correlated with prior imaging iF available otherwise close attention on follow-up Plan: ICU BED follow pulmonary recommendations for vent management. AC mode, remains intubated/sedated CARDIOLOGY FOLLOWING recommendations greatly appreciated. VENT SUPPORT heparin drip GI PROPHYLAXIS TAPERING IV STEROIDS covid 19 screen negative. Nephrology following cpk Echo to assess LV systolic function pending negative COVID testing review records from [facility] in [place], [place]. when available further ischemic evaluation pending course of hospitalization picc 05/10 BB moving forward with cocaine cessation counseling The patient was evaluated during the global COVID-19 pandemic, and that diagnosis was suspected/considered upon their initial presentation. Their evaluation, treatment and testing was consistent with current guidelines for patients who present with complaints or symptoms that may be related to COVID- 19. 38 MIN CC TIME VTE Prophylaxis Ordered VTE Prophylaxis Devices: Yes VTE Pharmacological Prophylaxi: Yes History of Present Illness History of Present Illness better po intake this AM, will DC the PPN cont current will DC tele, no current CV problem may have diet with supervision and thickened per speech oob to chair, doing better cont other, will need rehab, start planning Vitals Vitals Vital Signs Date Time Temp Pulse Resp B/P (MAP) Pulse Ox O2 Delivery O2 Flow Rate FiO2 20 15:00 99.1 88 20 168/95 (119) 97 Nasal Cannula 4.0 99.1 Physical Exam Physical Exam Heart: RRR Abdomen: obese Neurology: SEDATED General: Cooperative, No acute distress, Other (INTUBATED AND SEDATED) Heart: Regular rate, Normal S1, Normal S2 Lungs: Other (decrease bs) Abdomen: Normal bowel sounds, Soft, No tenderness Extremities: No clubbing, No cyanosis, No edema Skin: No breakdown, No significant lesion Labs LABS Laboratory Tests Test 05/20/20 17:27 05/20/20 20:38 05/21/20 07:39 05/21/20 12:12 Glucose (Fingerstick) 154 mg/dL (70-99) 154 mg/dL (70-99) 146 mg/dL (70-99) 192 mg/dL (70-99) Assessment and Plan Assessmemt and Plan Problems Medical Problems: (1) Cocaine abuse Status: Acute (2) NSTEMI (non-ST elevated myocardial infarction) Status: Acute (3) Respiratory failure Status: Acute (4) Suspected COVID-19 virus infection Status: Acute Comment Review of Relevant I have reviewed the following items jeffrey (where applicable) has been applied. Labs Laboratory Tests Test 05/19/20 17:10 05/19/20 20:57 05/19/20 23:11 05/20/20 02:35 Glucose (Fingerstick) 163 mg/dL (70-99) 117 mg/dL (70-99) 120 mg/dL (70-99) White Blood Count 10.5 x10^3/uL (4.0-11.0) Red Blood Count 5.75 x10^6/uL (4.30-5.70) Hemoglobin 13.5 g/dL (13.0-17.5) Hematocrit 43.2 % (39.0-53.0) Mean Corpuscular Volume 75 fL (79-100) Mean Corpuscular Hemoglobin 23 pg (25-35) Mean Corpuscular Hemoglobin Concent 31 g/dL (31-37) Red Cell Distribution Width 16.1 % (11.5-14.5) Platelet Count 158 x10^3/uL (140-400) Neutrophils (%) (Auto) 87 % (31-73) Lymphocytes (%) (Auto) 10 % (24-48) Monocytes (%) (Auto) 3 % (0-9) Eosinophils (%) (Auto) 0 % (0-3) Basophils (%) (Auto) 0 % (0-3) Neutrophils # (Auto) 9.1 x10^3/uL (1.8-7.7) Lymphocytes # (Auto) 1.0 x10^3/uL (1.0-4.8) Monocytes # (Auto) 0.3 x10^3/uL (0.0-1.1) Eosinophils # (Auto) 0.0 x10^3/uL (0.0-0.7) Basophils # (Auto) 0.0 x10^3/uL (0.0-0.2) Sodium Level 139 mmol/L (136-145) Potassium Level 4.1 mmol/L (3.5-5.1) Chloride Level 102 mmol/L (98-107) Carbon Dioxide Level 39 mmol/L (21-32) Anion Gap (6-14) Blood Urea Nitrogen 36 mg/dL (8-26) Creatinine 1.1 mg/dL (0.7-1.3) Estimated GFR (Cockcroft-Gault) 83.8 BUN/Creatinine Ratio 33 (6-20) Glucose Level 177 mg/dL (70-99) Calcium Level 8.1 mg/dL (8.5-10.1) Total Bilirubin 0.9 mg/dL (0.2-1.0) Aspartate Amino Transf (AST/SGOT) 19 U/L (15-37) Alanine Aminotransferase (ALT/SGPT) 37 U/L (16-63) Alkaline Phosphatase 34 U/L (46-116) Total Protein 5.5 g/dL (6.4-8.2) Albumin 2.6 g/dL (3.4-5.0) Albumin/Globulin Ratio 0.9 (1.0-1.7) Test 05/20/20 11:45 05/20/20 17:27 05/20/20 20:38 05/21/20 07:39 Glucose (Fingerstick) 82 mg/dL (70-99) 154 mg/dL (70-99) 154 mg/dL (70-99) 146 mg/dL (70-99) Test 05/21/20 12:12 Glucose (Fingerstick) 192 mg/dL (70-99) Laboratory Tests Test 05/20/20 17:27 05/20/20 20:38 05/21/20 07:39 05/21/20 12:12 Glucose (Fingerstick) 154 mg/dL (70-99) 154 mg/dL (70-99) 146 mg/dL (70-99) 192 mg/dL (70-99) Microbiology 05/08/20 Blood Culture - Final, Complete NO GROWTH AFTER 5 DAYS Medications Current Medications Propofol 50 ml @ As Directed STK-MED ONCE IV ; Start 05/08/20 at 07:33; Stop 05/08/20 at 07:33; Status DC Propofol 100 ml @ 0 mls/hr CONT PRN IV SEE PROTOCOL Last administered on 05/18/20at 04:04; Start 05/08/20 at 07:45; Stop 05/18/20 at 18:04; Status DC Fentanyl Citrate (Fentanyl 2ml Vial) 50 mcg PRN Q1HR PRN IV SEE COMMENTS Last administered on 05/08/20at 12:44; Start 05/08/20 at 07:45; Stop 05/18/20 at 18:04; Status DC Chlorhexidine Gluconate (Peridex) 15 ml BID MM Last administered on 05/16/20at 20:05; Start 05/08/20 at 09:00; Stop 05/17/20 at 10:45; Status DC Etomidate (Amidate) 20 mg 1X ONCE IV Last administered on 05/08/20at 07:30; Start 05/08/20 at 07:45; Stop 05/08/20 at 09:04; Status DC Succinylcholine Chloride (Anectine) 100 mg 1X ONCE IV Last administered on 05/08/20at 07:31; Start 05/08/20 at 07:45; Stop 05/08/20 at 09:04; Status DC Albuterol/ Ipratropium (Duoneb) 6 ml 1X ONCE NEB ; Start 05/08/20 at 07:45; Stop 05/08/20 at 09:04; Status DC Methylprednisolone Sodium Succinate (SOLU-Medrol 125MG VIAL) 125 mg 1X ONCE IV Last administered on 05/08/20at 08:31; Start 05/08/20 at 07:45; Stop 05/08/20 at 09:04; Status DC Albuterol Sulfate (Ventolin Neb Soln) 2.5 mg 1X ONCE NEB ; Start 05/08/20 at 07:45; Stop 05/08/20 at 08:56; Status DC Ceftriaxone Sodium (Rocephin) 1 gm 1X ONCE IVP Last administered on 05/08/20at 08:31; Start 05/08/20 at 07:45; Stop 05/08/20 at 09:04; Status DC Propofol (Diprivan) 40 mg 1X ONCE IV ; Start 05/08/20 at 08:00; Stop 05/08/20 at 09:04; Status DC Fentanyl Citrate 30 ml @ 0 mls/hr CONT PRN IV SEE PROTOCOL Last administered on 05/18/20at 04:52; Start 05/08/20 at 08:15; Stop 05/18/20 at 18:42; Status DC Midazolam HCl 100 ml @ 0 mls/hr CONT PRN IV SEE PROTOCOL Last administered on 05/17/20at 08:57; Start 05/08/20 at 08:15; Stop 05/18/20 at 18:04; Status DC Sodium Chloride 1,000 ml @ 1,000 mls/hr 1X ONCE IV Last administered on 05/08/20at 08:47; Start 05/08/20 at 08:30; Stop 05/08/20 at 09:29; Status DC Midazolam HCl (Versed) 5 mg 1X ONCE IV Last administered on 05/08/20at 08:33; Start 05/08/20 at 08:30; Stop 05/08/20 at 09:04; Status DC Ondansetron HCl (Zofran) 4 mg PRN Q8HRS PRN IV NAUSEA/VOMITING; Start 05/08/20 at 08:45; Stop 05/09/20 at 08:44; Status DC Aspirin (Aspirin Rectal Supp) 300 mg 1X ONCE NE Last administered on 05/08/20at 10:00; Start 05/08/20 at 08:45; Stop 05/08/20 at 09:04; Status DC Sodium Chloride (Normal Saline Flush) 3 ml QSHIFT PRN IV AFTER MEDS AND BLOOD DRAWS; Start 05/08/20 at 11:30; Stop 05/08/20 at 18:55; Status DC Sodium Chloride 1,000 ml @ 60 mls/hr [id number] IV Last administered on 05/08/20at 12:53; Start 05/08/20 at 11:24; Stop 05/08/20 at 18:55; Status DC Ondansetron HCl (Zofran) 4 mg PRN Q4HRS PRN IV NAUSEA/VOMITING; Start 05/08/20 at 11:30; Stop 05/08/20 at 18:55; Status DC Acetaminophen (Tylenol Supp) 650 mg PRN Q4HRS PRN NE TEMP OVER 100.4F OR MILD PAIN; Start 05/08/20 at 11:30; Stop 05/08/20 at 18:47; Status DC Sodium Monofluorophosphate (Fleet Adult) 133 ml PRN DAILY PRN NE CONSTIPATION; Start 05/08/20 at 11:30; Stop 05/08/20 at 18:55; Status DC Albuterol/ Ipratropium (Duoneb) 3 ml Q4H NEB ; Start 05/08/20 at 11:30; Stop 05/08/20 at 15:37; Status DC Enoxaparin Sodium (Lovenox 40mg Syringe) 40 mg DAILY SQ ; Start 05/09/20 at 09:00; Stop 05/08/20 at 18:54; Status DC Pantoprazole Sodium (PROTONIX VIAL for IV PUSH) 40 mg DAILYAC IVP Last administered on 05/21/20at 09:01; Start 05/08/20 at 11:30; Stop 05/21/20 at 14:27; Status DC Etomidate (Amidate) 40 mg 1X ONCE IV Last administered on 05/08/20at 07:57; Start 05/08/20 at 07:55; Stop 05/08/20 at 12:05; Status DC Methylprednisolone Sodium Succinate (SOLU-Medrol 125MG VIAL) 60 mg Q8HRS IV Last administered on 05/19/20at 06:19; Start 05/08/20 at 14:00; Stop 05/19/20 at 11:32; Status DC Midazolam HCl (Versed) 5 mg PRN Q15MIN PRN IV SEDATION Last administered on 05/08/20at 12:32; Start 05/08/20 at 08:00 Enoxaparin Sodium (Lovenox Per Pharmacy Prophylaxis Dosing) 1 each PRN DAILY PRN MC SEE COMMENTS; Start 05/08/20 at 16:00; Stop 05/10/20 at 09:14; Status DC Sodium Chloride (Normal Saline Flush) 3 ml QSHIFT PRN IV AFTER MEDS AND BLOOD DRAWS; Start 05/08/20 at 16:15 Sodium Chloride 1,000 ml @ 50 mls/hr Q20H IV Last administered on 05/18/20at 17:00; Start 05/08/20 at 16:01; Stop 05/19/20 at 11:02; Status DC Ondansetron HCl (Zofran) 4 mg PRN Q4HRS PRN IV NAUSEA/VOMITING; Start 05/08/20 at 16:15 Acetaminophen (Tylenol Supp) 650 mg PRN Q4HRS PRN NE TEMP OVER 100.4F OR MILD PAIN; Start 05/08/20 at 16:15 Sodium Monofluorophosphate (Fleet Adult) 133 ml PRN DAILY PRN NE CONSTIPATION; Start 05/08/20 at 16:15 Albuterol/ Ipratropium (Duoneb) 3 ml Q4H NEB ; Start 05/08/20 at 16:15; Stop 05/08/20 at 18:45; Status DC Enoxaparin Sodium (Lovenox 40mg Syringe) 40 mg Q24H SQ Last administered on 05/09/20at 17:04; Start 05/08/20 at 17:00; Stop 05/10/20 at 09:14; Status DC Ceftriaxone Sodium (Rocephin) 1 gm Q24H IVP Last administered on 05/19/20at 08:19; Start 05/09/20 at 08:00; Stop 05/19/20 at 11:32; Status DC Aspirin (Aspirin Chewable) 81 mg DAILYWBKFT PO ; Start 05/08/20 at 17:30; Stop 05/08/20 at 17:27; Status DC Aspirin (Aspirin Chewable) 81 mg DAILYWBKFT PO Last administered on 05/21/20at 09:01; Start 05/09/20 at 08:00 Albuterol Sulfate (Ventolin Neb Soln) 2.5 mg PRN Q4HRS PRN NEB SHORTNESS OF BREATH; Start 05/08/20 at 19:00 Amlodipine Besylate (Norvasc) 10 mg 1X ONCE PO Last administered on 05/09/20at 14:31; Start 05/09/20 at 14:30; Stop 05/09/20 at 14:31; Status DC Clonidine HCl (Catapres) 0.1 mg PRN Q2HR PRN PO HYPERTENSION Last administered on 05/13/20at 10:18; Start 05/09/20 at 14:30; Stop 05/13/20 at 11:34; Status DC Enoxaparin Sodium (Lovenox Per Pharmacy Treatment Dosing) 1 each PRN DAILY PRN MC SEE COMMENTS; Start 05/10/20 at 09:30; Status Cancel Enoxaparin Sodium (Lovenox 120mg Syringe) 120 mg DAILY SQ Last administered on 05/10/20at 10:19; Start 05/10/20 at 10:00; Stop 05/10/20 at 10:48; Status DC Heparin Sodium/ Dextrose 250 ml @ 10 mls/hr CONT PRN IV PER PROTOCOL Last administered on 05/11/20at 20:59; Start 05/10/20 at 11:00; Stop 05/13/20 at 13:35; Status DC Heparin Sodium (Porcine) (Heparin Sodium) 2,950 unit PRN Q6HRS PRN IV FOR UFH LEVEL LESS THAN 0.2; Start 05/10/20 at 11:00; Stop 05/13/20 at 13:36; Status DC Polyethylene Glycol (miraLAX PACKET) 17 gm PRN DAILY PRN PO CONSTIPATION Last administered on 05/11/20at 11:20; Start 05/10/20 at 16:00 Lidocaine HCl (Buffered Lidocaine 1%) 3 ml STK-MED ONCE .ROUTE ; Start 05/11/20 at 13:30; Stop 05/11/20 at 13:30; Status DC Lidocaine HCl (Buffered Lidocaine 1%) 6 ml 1X ONCE INJ Last administered on 05/11/20at 13:50; Start 05/11/20 at 14:00; Stop 05/11/20 at 14:01; Status DC Sodium Chloride 1,000 ml @ 1,000 mls/hr Q1H PRN IV hypotension; Start 05/11/20 at 15:19; Stop 05/11/20 at 21:18; Status DC Info (PHARMACY MONITORING -- do not chart) 1 each PRN DAILY PRN MC SEE COMMENTS; Start 05/11/20 at 15:30; Status Cancel Info (PHARMACY MONITORING -- do not chart) 1 each PRN DAILY PRN MC SEE COMMENTS; Start 05/11/20 at 15:30; Status UNV Sodium Chloride 1,000 ml @ 1,000 mls/hr Q1H PRN IV hypotension; Start 05/12/20 at 08:28; Stop 05/12/20 at 14:27; Status DC Albumin Human 200 ml @ 200 mls/hr 1X PRN PRN IV Hypotension; Start 05/12/20 at 08:30; Stop 05/12/20 at 14:29; Status DC Sodium Chloride (Normal Saline Flush) 10 ml 1X PRN PRN IV AP catheter pack; Start 05/12/20 at 08:30; Stop 05/13/20 at 08:29; Status DC Sodium Chloride (Normal Saline Flush) 10 ml 1X PRN PRN IV 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; Start 05/12/20 at 08:30; Stop 05/13/20 at 08:29; Status DC Sodium Chloride 1,000 ml @ 400 mls/hr Q2H30M PRN IV PATENCY; Start 05/12/20 at 08:28; Stop 05/12/20 at 20:27; Status DC Info (PHARMACY MONITORING -- do not chart) 1 each PRN DAILY PRN MC SEE COMMENTS; Start 05/12/20 at 08:30; Status UNV Info (PHARMACY MONITORING -- do not chart) 1 each PRN DAILY PRN MC SEE COMMENTS; Start 05/12/20 at 08:30 Info (Anti-Coagulation Monitoring By Pharmacy) 1 each PRN DAILY PRN MC SEE COMMENTS; Start 05/12/20 at 09:15; Stop 05/13/20 at 13:35; Status DC Iohexol (Omnipaque 350 Mg/ml) 100 ml 1X ONCE IV Last administered on 05/12/20at 15:45; Start 05/12/20 at 11:45; Stop 05/12/20 at 11:46; Status DC Info (CONTRAST GIVEN -- Rx MONITORING) 1 each PRN DAILY PRN MC SEE COMMENTS; Start 05/12/20 at 11:45; Stop 05/14/20 at 11:44; Status DC Insulin Human Lispro (HumaLOG) 0-5 UNITS TIDWMEALS SQ Last administered on 05/12/20at 18:16; Start 05/12/20 at 13:00; Stop 05/12/20 at 19:02; Status DC Dextrose (Dextrose 50%-Water Syringe) 12.5 gm PRN Q15MIN PRN IV SEE COMMENTS; Start 05/12/20 at 12:45 Dextrose (Iv Dextrose 5%) 250 ml PRN Q15MIN PRN IV SEE COMMENTS; Start 05/12/20 at 12:45; Stop 05/21/20 at 14:10; Status DC Insulin Human Lispro (HumaLOG) 0-5 UNITS Q6HRS SQ Last administered on 05/18/20at 06:15; Start 05/13/20 at 00:00; Stop 05/21/20 at 09:55; Status DC Labetalol HCl (Normodyne Iv Push) 10 mg PRN Q4HRS PRN IVP HYPERTENSION Last administered on 05/19/20at 09:04; Start 05/13/20 at 12:00 Sodium Chloride 1,000 ml @ 1,000 mls/hr Q1H PRN IV hypotension; Start 05/13/20 at 12:00; Stop 05/13/20 at 19:00; Status DC Sodium Chloride 1,000 ml @ 400 mls/hr Q2H30M PRN IV PATENCY; Start 05/13/20 at 12:00; Stop 05/13/20 at 19:00; Status DC Info (PHARMACY MONITORING -- do not chart) 1 each PRN DAILY PRN MC SEE COMMENTS; Start 05/13/20 at 12:00; Status UNV Info (PHARMACY MONITORING -- do not chart) 1 each PRN DAILY PRN MC SEE COMMENTS; Start 05/13/20 at 12:00; Status UNV Heparin Sodium (Porcine) (Heparin Sodium) 5,000 unit Q12HR SQ Last administered on 05/21/20at 09:12; Start 05/13/20 at 21:00 Amlodipine Besylate (Norvasc) 10 mg DAILY PO Last administered on 05/21/20at 09:02; Start 05/14/20 at 12:00 Hydralazine HCl (Apresoline Inj) 25 mg TID IVP Last administered on 05/16/20at 07:42; Start 05/14/20 at 12:00; Stop 05/16/20 at 13:17; Status DC Furosemide (Lasix) 80 mg 1X ONCE IVP Last administered on 05/14/20at 12:03; Start 05/14/20 at 12:00; Stop 05/14/20 at 12:01; Status DC Hydralazine HCl (Apresoline Inj) 10 mg PRN Q4HRS PRN IVP ELEVATED BP, SEE COMMENTS Last administered on 05/19/20at 23:07; Start 05/16/20 at 12:15 Hydralazine HCl (Apresoline) 50 mg TID PO ; Start 05/16/20 at 14:00; Stop 05/16/20 at 13:25; Status DC Carvedilol (Coreg) 12.5 mg BIDWMEALS PO ; Start 05/16/20 at 17:00; Stop 05/16/20 at 13:25; Status DC Carvedilol (Coreg) 3.125 mg BIDWMEALS PO Last administered on 05/16/20at 17:30; Start 05/16/20 at 17:00; Stop 05/17/20 at 08:15; Status DC Hydralazine HCl (Apresoline) 25 mg BID PO Last administered on 05/21/20at 09:03; Start 05/16/20 at 21:00 Carvedilol (Coreg) 6.25 mg BIDWMEALS PO Last administered on 05/21/20at 09:02; Start 05/17/20 at 08:15 Dexmedetomidine HCl 400 mcg/ Sodium Chloride 100 ml @ 0 mls/hr CONT PRN IV PER PROTOCOL Last administered on 05/18/20at 04:06; Start 05/17/20 at 09:45; Stop 05/19/20 at 11:32; Status DC Sodium Chloride 500 ml @ 500 mls/hr 1X PRN PRN IV PER PROTOCOL; Start 05/17/20 at 09:45 Atropine Sulfate (ATROPINE 0.5mg SYRINGE) 0.5 mg PRN Q5MIN PRN IV SEE COMMENTS; Start 05/17/20 at 09:45 Haloperidol Lactate (Haldol Inj) 5 mg Q8HRS IVP Last administered on 05/18/20at 06:07; Start 05/17/20 at 14:00; Stop 05/18/20 at 18:42; Status DC Furosemide (Lasix) 40 mg 1X ONCE IVP Last administered on 05/17/20at 18:00; Start 05/17/20 at 17:30; Stop 05/17/20 at 17:31; Status DC Furosemide (Lasix) 40 mg DAILY IVP Last administered on 05/18/20at 08:03; Start 05/18/20 at 09:00; Stop 05/18/20 at 12:32; Status DC Insulin Glargine (Lantus Syringe) 14 unit DAILY SQ Last administered on 05/21/20at 09:11; Start 05/18/20 at 11:00 Furosemide (Lasix) 40 mg PRN DAILY PRN IVP SEE COMMENTS; Start 05/18/20 at 12:45 Haloperidol Lactate (Haldol Inj) 5 mg PRN Q8HRS PRN IVP DELIRIUM; Start 05/18/20 at 18:45 Zolpidem Tartrate (Ambien) 5 mg PRN QHS PRN PO INSOMNIA Last administered on 05/20/20at 23:11; Start 05/19/20 at 10:30 Amino Acids/ Glycerin/ Electrolytes 1,000 ml @ 80 mls/hr [id number] IV Last administered on 05/21/20at 01:10; Start 05/19/20 at 11:15; Stop 05/21/20 at 09:18; Status DC Methylprednisolone Sodium Succinate (SOLU-Medrol 125MG VIAL) 60 mg BID IV Last administered on 05/21/20at 09:01; Start 05/19/20 at 21:00 Insulin Human Lispro (HumaLOG) 0-5 UNITS TIDWMEALS SQ Last administered on 05/21/20at 12:52; Start 05/21/20 at 12:00 Pantoprazole Sodium (Protonix) 40 mg DAILYAC PO ; Start 05/22/20 at 07:30 Active Scripts Active Reported [amlodipine benazep] Unknown Dose PO Proventil Hfa (Albuterol Sulfate) 6.7 Gm Hfa.aer.ad 1 Puff INH PRN Q6HRS PRN Advair 100-50 Diskus (Fluticasone/Salmeterol) 1 Each Disk.w.dev 1 Puff IH BID Vitals/I & O Vital Sign - Last 24 Hours 05/20/20 05/20/20 05/20/20 05/20/20 17:42 19:31 19:58 21:05 Temp 98.7 98.7 Pulse 90 99 99 Resp 16 B/P (MAP) 139/92 131/91 (104) 131/91 Pulse Ox 90 O2 Delivery Nasal Cannula Nasal Cannula O2 Flow Rate 4.0 4.0 05/20/20 05/21/20 05/21/20 05/21/20 22:38 03:34 07:00 08:14 Temp 98.7 98.3 98.5 98.7 98.3 98.5 Pulse 96 93 87 Resp 18 22 22 B/P (MAP) 127/95 (106) 134/90 (105) 139/98 (112) Pulse Ox 96 98 98 O2 Delivery Nasal Cannula BiPAP/CPAP BiPAP/CPAP Nasal Cannula O2 Flow Rate 4.0 4.0 05/21/20 05/21/20 05/21/20 05/21/20 09:02 09:02 09:03 11:00 Temp 98.4 98.4 Pulse 87 83 Resp 22 B/P (MAP) 139/98 139/98 139/98 146/95 (112) Pulse Ox 97 O2 Delivery Nasal Cannula O2 Flow Rate 4.0 05/21/20 15:00 Temp 99.1 99.1 Pulse 88 Resp 20 B/P (MAP) 168/95 (119) Pulse Ox 97 O2 Delivery Nasal Cannula O2 Flow Rate 4.0 Intake and Output 05/20/20 05/20/20 05/21/20 15:00 23:00 07:00 Intake Total 50 ml 50 ml Balance 50 ml 50 ml Justicifation of Admission Dx: Justifications for Admission: Justification of Admission Dx: Yes CHF: Hemodynamic Instability Respiratory Failure: Mechanical Ventilation Acute COPD Exacerbation: Acute COPD Exacerbation Altered Mental Status: Altered Mental Status SANGEETA SUERO MD May 21, 2020 16:36
[2020-05-21 19:50] VITALS: BP 155/81
[2020-05-21 23:11] VITALS: BP 140/94
[2020-05-22] VITALS (7 sets, daily range): BP systolic 137–181; BP diastolic 76–95
--- NOTE | 2020-05-22 07:52 | RAD ---
Procedure: Ultrasound-guided placement of right internal jugular temporary dialysis catheter 5:48 AM Clinical Indication: need trialysis cath placement, RENAL FAILURE Discussion: The risks and benefits of the procedure were discussed the patient and/or their group sales representative. Informed consent was obtained. A timeout procedure was performed. All elements of maximal sterile barrier technique including the use of a cap, mask, sterile gown, sterile gloves, large sterile sheet, appropriate hand hygiene, and 2% chlorhexidine for cutaneous antisepsis (or acceptable alternative antiseptic per current guidelines) were followed for this procedure. The patient was prepped and draped in the usual sterile fashion. Ultrasound interrogation of the right neck revealed patency and compressibility of the right internal jugular vein. A 21-gauge micropuncture was then used to gain access to this vein under ultrasound guidance. A hard copy ultrasound image was recorded. A guidewire was advanced centrally. 5 Armenian sheath was placed. Over a wire following dilatation, a triple-lumen temporary dialysis catheter was advanced centrally. Catheter was found to flush and aspirate normally. Follow-up chest radiograph demonstrates tip at the cavoatrial junction. Catheter secured in place and a sterile dressing was applied. No immediate complications were identified. Impression: Successful ultrasound-guided placement of right internal jugular triple-lumen Temporary hemodialysis catheter
[2020-05-22] MEDS: INSULIN LISPRO 300 UNITS/3 ML VIAL. SQ SCH ×3 (08:00→17:19)
[2020-05-22] MEDS: POLYETHYLENE GLYCOL 3350 17 GM PACKET. PO PRN (08:44)
[2020-05-22] MEDS: amLODIPine BESYLATE 10 MG TABLET PO SCH (08:44)
[2020-05-22] MEDS: ASPIRIN CHEWABLE 81 MG TABLET. PO SCH (08:44)
[2020-05-22] MEDS: PANTOPRAZOLE 40 MG TABLET.DR. PO SCH (08:45)
[2020-05-22] MEDS: hydrALAZINE 25 MG TABLET PO SCH (08:45)
[2020-05-22] MEDS: CARVEDILOL 6.25 MG TABLET. PO SCH ×2 (08:45→17:14)
[2020-05-22] MEDS: methylPREDNISolone SOD SUCC PF 125 MG/2 ML VIAL. IV SCH ×2 (08:46→21:08)
[2020-05-22] MEDS: HEPARIN for SUB-Q USE 5,000 UNIT/ML VIAL. SQ SCH ×2 (08:58→21:11)
[2020-05-22] MEDS: INSULIN GLARGINE SYRINGE. SQ SCH (08:59)
--- NOTE | 2020-05-22 09:04 | PDOC ---
PULMONARY PROGRESS NOTES Subjective Patient continues to improve, no increasing shortness of air Vitals Vital Signs Date Time Temp Pulse Resp B/P (MAP) Pulse Ox O2 Delivery O2 Flow Rate FiO2 05/22/20 08:45 87 150/84 05/22/20 07:00 98.5 20 98 Nasal Cannula 4.0 98.5 ROS: No Nausea, No Chest Pain, No Abdominal Pain, No Increase Cough General: Alert Lungs: Other (decrease bs) Cardiovascular: S1 Abdomen: Soft, Other (obese) Extremities: Other (BLE +1) Skin: Warm, Dry Labs Laboratory Tests Test 05/20/20 11:45 05/20/20 17:27 05/20/20 20:38 05/21/20 07:39 Glucose (Fingerstick) 82 mg/dL (70-99) 154 mg/dL (70-99) 154 mg/dL (70-99) 146 mg/dL (70-99) Test 05/21/20 12:12 05/21/20 17:11 05/21/20 21:05 05/22/20 07:26 Glucose (Fingerstick) 192 mg/dL (70-99) 141 mg/dL (70-99) 208 mg/dL (70-99) 149 mg/dL (70-99) Laboratory Tests Test 05/21/20 12:12 05/21/20 17:11 05/21/20 21:05 05/22/20 07:26 Glucose (Fingerstick) 192 mg/dL (70-99) 141 mg/dL (70-99) 208 mg/dL (70-99) 149 mg/dL (70-99) Medications Active Scripts Medications Dose Route/Sig Max Daily Dose Days Date Category [amlodipine benazep] Unknown Dose PO 05/08/20 Reported Proventil Hfa (Albuterol Sulfate) 6.7 Gm Hfa.aer.ad 1 Puff INH PRN Q6HRS PRN 05/08/20 Reported Advair 100-50 Diskus (Fluticasone/Salmeterol) 1 Each Disk.w.dev 1 Puff IH BID 05/08/20 Reported Comments Chest x-ray 05/17 reviewed CTA chest IMPRESSION: 1. No evidence for acute pulmonary embolus the level of the subsegmental branches. More peripheral vessels are not well assessed. 2. Are seen moderate bilateral pleural effusions are seen. 3. Lower atelectasis of the lower lobes and atelectasis of the middle lobe without obvious obstructing mass, etiology is uncertain. Of note there may be small hilar lymph nodes bilaterally that are secured by the pleural effusions and hilar infiltration. Consider further evaluation with bronchoscopy or short interval follow-up CT following resolution of the acute process to further delineate. 4. Indeterminate right adrenal nodule can be correlated with prior imaging is available otherwise close attention on follow-up is recommended. Impression . 1. Acute hypoxic and hypercapnic respiratory failure secondary to multifactorial etiologies including suspected chronic obstructive pulmonary disease with acute exacerbation, non-ST myocardial infarction, and cocaine overdose. Status post extubation 7 1 2. Underlying chronic obstructive pulmonary disease, clinically suspected. 3. Abnormal chest x-ray with prominent interstitial markings, probably related to mild interstitial edema.---improved 4. Abnormal troponin consistent with non-ST myocardial infarction. 5. Acute kidney injury-- improving 6. Abnormal LFTs. Could be related to hypoperfusion. 7. Urine drug screen positive for cocaine. 8. CT chest neg for PE 9. Arslan atelectasis 10. Delirium CT chest IMPRESSION: 1. No evidence for acute pulmonary embolus the level of the subsegmental branches. More peripheral vessels are not well assessed. 2. Are seen moderate bilateral pleural effusions are seen. 3. Lower atelectasis of the lower lobes and atelectasis of the middle lobe without obvious obstructing mass, etiology is uncertain. Of note there may be small hilar lymph nodes bilaterally that are secured by the pleural effusions and hilar infiltration. Consider further evaluation with bronchoscopy or short interval follow-up CT following resolution of the acute process to further delineate. 4. Indeterminate right adrenal nodule can be correlated with prior imaging is available otherwise close attention on follow-up is recommended. Plan . Discussed with Dr. Gipson, social media strategist working on disposition Continue supplemental oxygen and BIPAP at HS and PRN -- N/C during the day Cont. Speech recs for dysphasia--- now on thickened liquids Up in chair TID and as tolerated continue PRN Nenital Appreciate nephrology and cardiology input CTA reviewed-- will repeat CT in 2 months cont. IV steroids NEBS DVT/GI PPX Discussed with RT and TOÑA RIVERA MD May 22, 2020 09:03
--- NOTE | 2020-05-22 12:53 | NUR ---
SS following up with discharge planning. SS reviewed pt chart and discussed with pt RN. Pt transferred to room 262 over the weekend. Pt now on nasal canula oxygen. Pt reports having home oxygen available. PT/OT recommending acute rehabilitation. SS met with pt in room to discuss discharge planning and acute rehabilitation. Pt reported that he prefers to return to [place], [place] and pursue rehabilitation in [place]. Pt reported that he has oxygen tanks in [place] available to him for the trip. SS contacted pt's spouse and notified her of discharge discussion with pt. Pt's spouse reported that she prefers pt to have rehabilitation in [place] prior to returning to [place]. Pt's spouse requesting that pt go to [facility], ; fax [phone]. Pt's spouse was provided with options for [facility] as well as [facility]. Pt's spouse reported that she would come and discuss with pt and requested SS contact her back in two hours. SS phoned and faxed referral to [facility]. SS will continue to follow for discharge planning.
--- NOTE | 2020-05-22 15:19 | NUR ---
SS following up with discharge planning. SS met with pt and pt's spouse in room. Pt agreeable to going to rehabilitation [facility] in [place]. [facility], ; fax [phone], accepted pending insurance authorization. SS will continue to follow for discharge planning.
--- NOTE | 2020-05-22 16:51 | PDOC ---
CARDIO Progress Notes Date and Time Date of Service 05/22/20 Time of Evaluation 1215 Subjective Subjective: No Chest Pain, No shortness of breath, No Palpitations Vitals Vitals Vital Signs Date Time Temp Pulse Resp B/P (MAP) Pulse Ox O2 Delivery O2 Flow Rate FiO2 05/22/20 14:33 98.5 98 20 142/81 (101) 89 Nasal Cannula 4.0 98.5 Weight Weight [ ] Input and Output Intake and Output Intake and Output 05/22/20 06:59 Intake Total 710 ml Output Total 600 ml Balance 110 ml Intake Oral 710 ml Output Urine Total 600 ml Laboratory Labs Laboratory Tests Test 05/21/20 17:11 05/21/20 21:05 05/22/20 07:26 05/22/20 11:19 Glucose (Fingerstick) 141 mg/dL (70-99) 208 mg/dL (70-99) 149 mg/dL (70-99) 166 mg/dL (70-99) Test 05/22/20 16:17 Glucose (Fingerstick) 188 mg/dL (70-99) Microbiology Micro Microbiology 05/08/20 Blood Culture - Final, Complete NO GROWTH AFTER 5 DAYS Review of Systems Constitutional: yes: other (ON THE VENT SEDATED) Physical Exam Chest: Symmetric LUNGS: Clear to Auscultation Heart: RRR (SR ) Abdomen: Soft N/T, Other (obese) Extremities: Other (trace bilateral LE edema) Neurology: alert, oriented, follow commands Assessment Assessment 1. Acute on chronic respiratory failure secondary to combination of AECOPD and acute on chronic systolic and diastolic HF. s/p extubation 05/17. LVEF 45%. COVID negative. 2. NSTEMI; highest trop 1.6. likely demand mediated/type II. CP free. 3. Severe EVY: required HD. Now resolved. 4. Hypertension; remains elevated 5. Diabetes, II 6. Tobaccoism; discussed/encouraged cessation; verbalizes desire to quit 7. Substance abuse; UDS + cocaine: Advised on abstinence Recommendations Increase hydralazine for better BP control ASA therapy Continue Coreg. No ACEi for now with recent EVY Outpatient ischemic evaluation; will have conducted through library clerical assistant in [place] upon returning home. Supportive care. Justicifation of Admission Dx: Justifications for Admission: Justification of Admission Dx: Yes CHF: Hemodynamic Instability Respiratory Failure: Mechanical Ventilation Acute COPD Exacerbation: Acute COPD Exacerbation Altered Mental Status: Altered Mental Status BELINDA NAVARRO APRN May 22, 2020 16:51
[2020-05-23 02:47] VITALS: BP 146/79
[2020-05-23] MEDS: PANTOPRAZOLE 40 MG TABLET.DR. PO SCH (06:10)
[2020-05-23 07:00] VITALS: BP 154/88
[2020-05-23] MEDS: INSULIN LISPRO 300 UNITS/3 ML VIAL. SQ SCH ×2 (07:41→11:50)
[2020-05-23] MEDS: amLODIPine BESYLATE 10 MG TABLET PO SCH (08:29)
[2020-05-23] MEDS: ASPIRIN CHEWABLE 81 MG TABLET. PO SCH (08:30)
[2020-05-23] MEDS: CARVEDILOL 6.25 MG TABLET. PO SCH (08:30)
[2020-05-23] MEDS: methylPREDNISolone SOD SUCC PF 125 MG/2 ML VIAL. IV SCH (08:30)
[2020-05-23] MEDS: INSULIN GLARGINE SYRINGE. SQ SCH (08:38)
[2020-05-23] MEDS: HEPARIN for SUB-Q USE 5,000 UNIT/ML VIAL. SQ SCH (08:39)
--- NOTE | 2020-05-23 08:44 | PDOC ---
PROGRESS NOTES Chief Complaint Chief Complaint A/P: Respiratory failure requiring vent support 75% fio2 COPD ACUTE HYPOXIC / HYPERCAPNIC RESP FAILURE Slight improvement with persistent basilar density bilaterally more on the left. CXR 05/10 Screen COVID-19 virus infection neg 05/09 NSTEMI (non-ST elevated myocardial infarction) left ventricular systolic function is mildly impaired. Ejection Fraction is 45%. tricuspid regurgitation with an estimated PAP of 54 mmHg. COCAINE ABUSE, present on admit Morbid obesity DM2 EVY - required HD temporariliy, RENAL FX IMPROVING EVY Echogenic appearing bilateral kidneys probably medical renal disease., worse No evidence of hydronephrosis. negative COVID testing Indeterminate right adrenal nodule can be correlated with prior imaging iF available otherwise close attention on follow-up Hypertension; remains elevated Tobaccoism; discussed/encouraged cessation; verbalizes desire to quit History of Present Illness History of Present Illness 05/17: Extubated 05/22: better po intake this AM, will DC the PPN. will DC tele, no current CV problem. may have diet with supervision and thickened per speech. oob to chair, doing better Overnight afebrile. Still on O2 this morning. Feeling motivated to go to acute rehab. Still profoundly weak. Vitals Vitals Vital Signs Date Time Temp Pulse Resp B/P (MAP) Pulse Ox O2 Delivery O2 Flow Rate FiO2 05/23/20 08:30 95 154/88 05/23/20 07:00 98.6 18 99 Nasal Cannula 4.0 98.6 Physical Exam Physical Exam Heart: RRR Abdomen: obese Neurology: SEDATED General: Cooperative, No acute distress, Other (INTUBATED AND SEDATED) Heart: Regular rate, Normal S1, Normal S2 Lungs: Other (decrease bs) Abdomen: Normal bowel sounds, Soft, No tenderness Extremities: No clubbing, No cyanosis, No edema Skin: No breakdown, No significant lesion Labs LABS Laboratory Tests Test 05/22/20 11:19 05/22/20 16:17 05/22/20 21:09 05/23/20 07:14 Glucose (Fingerstick) 166 mg/dL (70-99) 188 mg/dL (70-99) 201 mg/dL (70-99) 125 mg/dL (70-99) Assessment and Plan Assessmemt and Plan Problems Medical Problems: (1) Cocaine abuse Status: Acute (2) NSTEMI (non-ST elevated myocardial infarction) Status: Acute (3) Respiratory failure Status: Acute (4) Suspected COVID-19 virus infection Status: Acute Comment Review of Relevant I have reviewed the following items jeffrey (where applicable) has been applied. Labs Laboratory Tests Test 05/21/20 12:12 05/21/20 17:11 05/21/20 21:05 05/22/20 07:26 Glucose (Fingerstick) 192 mg/dL (70-99) 141 mg/dL (70-99) 208 mg/dL (70-99) 149 mg/dL (70-99) Test 05/22/20 11:19 05/22/20 16:17 05/22/20 21:09 05/23/20 07:14 Glucose (Fingerstick) 166 mg/dL (70-99) 188 mg/dL (70-99) 201 mg/dL (70-99) 125 mg/dL (70-99) Laboratory Tests Test 05/22/20 11:19 05/22/20 16:17 05/22/20 21:09 05/23/20 07:14 Glucose (Fingerstick) 166 mg/dL (70-99) 188 mg/dL (70-99) 201 mg/dL (70-99) 125 mg/dL (70-99) Microbiology 05/08/20 Blood Culture - Final, Complete NO GROWTH AFTER 5 DAYS Medications Current Medications Propofol 50 ml @ As Directed STK-MED ONCE IV ; Start 05/08/20 at 07:33; Stop 05/08/20 at 07:33; Status DC Propofol 100 ml @ 0 mls/hr CONT PRN IV SEE PROTOCOL Last administered on 05/18/20at 04:04; Start 05/08/20 at 07:45; Stop 05/18/20 at 18:04; Status DC Fentanyl Citrate (Fentanyl 2ml Vial) 50 mcg PRN Q1HR PRN IV SEE COMMENTS Last administered on 05/08/20at 12:44; Start 05/08/20 at 07:45; Stop 05/18/20 at 18:04; Status DC Chlorhexidine Gluconate (Peridex) 15 ml BID MM Last administered on 05/16/20at 20:05; Start 05/08/20 at 09:00; Stop 05/17/20 at 10:45; Status DC Etomidate (Amidate) 20 mg 1X ONCE IV Last administered on 05/08/20at 07:30; Start 05/08/20 at 07:45; Stop 05/08/20 at 09:04; Status DC Succinylcholine Chloride (Anectine) 100 mg 1X ONCE IV Last administered on 05/08/20at 07:31; Start 05/08/20 at 07:45; Stop 05/08/20 at 09:04; Status DC Albuterol/ Ipratropium (Duoneb) 6 ml 1X ONCE NEB ; Start 05/08/20 at 07:45; Stop 05/08/20 at 09:04; Status DC Methylprednisolone Sodium Succinate (SOLU-Medrol 125MG VIAL) 125 mg 1X ONCE IV Last administered on 05/08/20at 08:31; Start 05/08/20 at 07:45; Stop 05/08/20 at 09:04; Status DC Albuterol Sulfate (Ventolin Neb Soln) 2.5 mg 1X ONCE NEB ; Start 05/08/20 at 07:45; Stop 05/08/20 at 08:56; Status DC Ceftriaxone Sodium (Rocephin) 1 gm 1X ONCE IVP Last administered on 05/08/20at 08:31; Start 05/08/20 at 07:45; Stop 05/08/20 at 09:04; Status DC Propofol (Diprivan) 40 mg 1X ONCE IV ; Start 05/08/20 at 08:00; Stop 05/08/20 at 09:04; Status DC Fentanyl Citrate 30 ml @ 0 mls/hr CONT PRN IV SEE PROTOCOL Last administered on 05/18/20at 04:52; Start 05/08/20 at 08:15; Stop 05/18/20 at 18:42; Status DC Midazolam HCl 100 ml @ 0 mls/hr CONT PRN IV SEE PROTOCOL Last administered on 05/17/20at 08:57; Start 05/08/20 at 08:15; Stop 05/18/20 at 18:04; Status DC Sodium Chloride 1,000 ml @ 1,000 mls/hr 1X ONCE IV Last administered on 05/08/20at 08:47; Start 05/08/20 at 08:30; Stop 05/08/20 at 09:29; Status DC Midazolam HCl (Versed) 5 mg 1X ONCE IV Last administered on 05/08/20at 08:33; Start 05/08/20 at 08:30; Stop 05/08/20 at 09:04; Status DC Ondansetron HCl (Zofran) 4 mg PRN Q8HRS PRN IV NAUSEA/VOMITING; Start 05/08/20 at 08:45; Stop 05/09/20 at 08:44; Status DC Aspirin (Aspirin Rectal Supp) 300 mg 1X ONCE KS Last administered on 05/08/20at 10:00; Start 05/08/20 at 08:45; Stop 05/08/20 at 09:04; Status DC Sodium Chloride (Normal Saline Flush) 3 ml QSHIFT PRN IV AFTER MEDS AND BLOOD DRAWS; Start 05/08/20 at 11:30; Stop 05/08/20 at 18:55; Status DC Sodium Chloride 1,000 ml @ 60 mls/hr [id number] IV Last administered on 05/08/20at 12:53; Start 05/08/20 at 11:24; Stop 05/08/20 at 18:55; Status DC Ondansetron HCl (Zofran) 4 mg PRN Q4HRS PRN IV NAUSEA/VOMITING; Start 05/08/20 at 11:30; Stop 05/08/20 at 18:55; Status DC Acetaminophen (Tylenol Supp) 650 mg PRN Q4HRS PRN KS TEMP OVER 100.4F OR MILD PAIN; Start 05/08/20 at 11:30; Stop 05/08/20 at 18:47; Status DC Sodium Monofluorophosphate (Fleet Adult) 133 ml PRN DAILY PRN KS CONSTIPATION; Start 05/08/20 at 11:30; Stop 05/08/20 at 18:55; Status DC Albuterol/ Ipratropium (Duoneb) 3 ml Q4H NEB ; Start 05/08/20 at 11:30; Stop 05/08/20 at 15:37; Status DC Enoxaparin Sodium (Lovenox 40mg Syringe) 40 mg DAILY SQ ; Start 05/09/20 at 09:00; Stop 05/08/20 at 18:54; Status DC Pantoprazole Sodium (PROTONIX VIAL for IV PUSH) 40 mg DAILYAC IVP Last adm inistered on 05/21/20at 09:01; Start 05/08/20 at 11:30; Stop 05/21/20 at 14:27; Status DC Etomidate (Amidate) 40 mg 1X ONCE IV Last administered on 05/08/20at 07:57; Start 05/08/20 at 07:55; Stop 05/08/20 at 12:05; Status DC Methylprednisolone Sodium Succinate (SOLU-Medrol 125MG VIAL) 60 mg Q8HRS IV Last administered on 05/19/20at 06:19; Start 05/08/20 at 14:00; Stop 05/19/20 at 11:32; Status DC Midazolam HCl (Versed) 5 mg PRN Q15MIN PRN IV SEDATION Last administered on 05/08/20at 12:32; Start 05/08/20 at 08:00 Enoxaparin Sodium (Lovenox Per Pharmacy Prophylaxis Dosing) 1 each PRN DAILY PRN MC SEE COMMENTS; Start 05/08/20 at 16:00; Stop 05/10/20 at 09:14; Status DC Sodium Chloride (Normal Saline Flush) 3 ml QSHIFT PRN IV AFTER MEDS AND BLOOD DRAWS; Start 05/08/20 at 16:15 Sodium Chloride 1,000 ml @ 50 mls/hr Q20H IV Last administered on 05/18/20at 17:00; Start 05/08/20 at 16:01; Stop 05/19/20 at 11:02; Status DC Ondansetron HCl (Zofran) 4 mg PRN Q4HRS PRN IV NAUSEA/VOMITING; Start 05/08/20 at 16:15 Acetaminophen (Tylenol Supp) 650 mg PRN Q4HRS PRN [place] TEMP OVER 100.4F OR MILD PAIN; Start 05/08/20 at 16:15 Sodium Monofluorophosphate (Fleet Adult) 133 ml PRN DAILY PRN [place] CONSTIPATION; Start 05/08/20 at 16:15 Albuterol/ Ipratropium (Duoneb) 3 ml Q4H NEB ; Start 05/08/20 at 16:15; Stop 05/08/20 at 18:45; Status DC Enoxaparin Sodium (Lovenox 40mg Syringe) 40 mg Q24H SQ Last administered on 05/09/20at 17:04; Start 05/08/20 at 17:00; Stop 05/10/20 at 09:14; Status DC Ceftriaxone Sodium (Rocephin) 1 gm Q24H IVP Last administered on 05/19/20at 08:19; Start 05/09/20 at 08:00; Stop 05/19/20 at 11:32; Status DC Aspirin (Aspirin Chewable) 81 mg DAILYWBKFT PO ; Start 05/08/20 at 17:30; Stop 05/08/20 at 17:27; Status DC Aspirin (Aspirin Chewable) 81 mg DAILYWBKFT PO Last administered on 05/23/20at 08:30; Start 05/09/20 at 08:00 Albuterol Sulfate (Ventolin Neb Soln) 2.5 mg PRN Q4HRS PRN NEB SHORTNESS OF BREATH; Start 05/08/20 at 19:00 Amlodipine Besylate (Norvasc) 10 mg 1X ONCE PO Last administered on 05/09/20at 14:31; Start 05/09/20 at 14:30; Stop 05/09/20 at 14:31; Status DC Clonidine HCl (Catapres) 0.1 mg PRN Q2HR PRN PO HYPERTENSION Last administered on 05/13/20at 10:18; Start 05/09/20 at 14:30; Stop 05/13/20 at 11:34; Status DC Enoxaparin Sodium (Lovenox Per Pharmacy Treatment Dosing) 1 each PRN DAILY PRN MC SEE COMMENTS; Start 05/10/20 at 09:30; Status Cancel Enoxaparin Sodium (Lovenox 120mg Syringe) 120 mg DAILY SQ Last administered on 05/10/20at 10:19; Start 05/10/20 at 10:00; Stop 05/10/20 at 10:48; Status DC Heparin Sodium/ Dextrose 250 ml @ 10 mls/hr CONT PRN IV PER PROTOCOL Last administered on 05/11/20at 20:59; Start 05/10/20 at 11:00; Stop 05/13/20 at 13:35; Status DC Heparin Sodium (Porcine) (Heparin Sodium) 2,950 unit PRN Q6HRS PRN IV FOR UFH LEVEL LESS THAN 0.2; Start 05/10/20 at 11:00; Stop 05/13/20 at 13:36; Status DC Polyethylene Glycol (miraLAX PACKET) 17 gm PRN DAILY PRN PO CONSTIPATION Last administered on 05/22/20at 08:44; Start 05/10/20 at 16:00 Lidocaine HCl (Buffered Lidocaine 1%) 3 ml STK-MED ONCE .ROUTE ; Start 05/11/20 at 13:30; Stop 05/11/20 at 13:30; Status DC Lidocaine HCl (Buffered Lidocaine 1%) 6 ml 1X ONCE INJ Last administered on 05/11/20at 13:50; Start 05/11/20 at 14:00; Stop 05/11/20 at 14:01; Status DC Sodium Chloride 1,000 ml @ 1,000 mls/hr Q1H PRN IV hypotension; Start 05/11/20 at 15:19; Stop 05/11/20 at 21:18; Status DC Info (PHARMACY MONITORING -- do not chart) 1 each PRN DAILY PRN MC SEE COMMENTS; Start 05/11/20 at 15:30; Status Cancel Info (PHARMACY MONITORING -- do not chart) 1 each PRN DAILY PRN MC SEE COMMENTS; Start 05/11/20 at 15:30; Status UNV Sodium Chloride 1,000 ml @ 1,000 mls/hr Q1H PRN IV hypotension; Start 05/12/20 at 08:28; Stop 05/12/20 at 14:27; Status DC Albumin Human 200 ml @ 200 mls/hr 1X PRN PRN IV Hypotension; Start 05/12/20 at 08:30; Stop 05/12/20 at 14:29; Status DC Sodium Chloride (Normal Saline Flush) 10 ml 1X PRN PRN IV AP catheter pack; Start 05/12/20 at 08:30; Stop 05/13/20 at 08:29; Status DC Sodium Chloride (Normal Saline Flush) 10 ml 1X PRN PRN IV [employer] catheter pack; Start 05/12/20 at 08:30; Stop 05/13/20 at 08:29; Status DC Sodium Chloride 1,000 ml @ 400 mls/hr Q2H30M PRN IV PATENCY; Start 05/12/20 at 08:28; Stop 05/12/20 at 20:27; Status DC Info (PHARMACY MONITORING -- do not chart) 1 each PRN DAILY PRN MC SEE COMMENTS; Start 05/12/20 at 08:30; Status UNV Info (PHARMACY MONITORING -- do not chart) 1 each PRN DAILY PRN MC SEE COMMENTS; Start 05/12/20 at 08:30 Info (Anti-Coagulation Monitoring By Pharmacy) 1 each PRN DAILY PRN MC SEE COMMENTS; Start 05/12/20 at 09:15; Stop 05/13/20 at 13:35; Status DC Iohexol (Omnipaque 350 Mg/ml) 100 ml 1X ONCE IV Last administered on 05/12/20at 15:45; Start 05/12/20 at 11:45; Stop 05/12/20 at 11:46; Status DC Info (CONTRAST GIVEN -- Rx MONITORING) 1 each PRN DAILY PRN MC SEE COMMENTS; Start 05/12/20 at 11:45; Stop 05/14/20 at 11:44; Status DC Insulin Human Lispro (HumaLOG) 0-5 UNITS TIDWMEALS SQ Last administered on 05/12/20at 18:16; Start 05/12/20 at 13:00; Stop 05/12/20 at 19:02; Status DC Dextrose (Dextrose 50%-Water Syringe) 12.5 gm PRN Q15MIN PRN IV SEE COMMENTS; Start 05/12/20 at 12:45 Dextrose (Iv Dextrose 5%) 250 ml PRN Q15MIN PRN IV SEE COMMENTS; Start 05/12/20 at 12:45; Stop 05/21/20 at 14:10; Status DC Insulin Human Lispro (HumaLOG) 0-5 UNITS Q6HRS SQ Last administered on 05/18/20at 06:15; Start 05/13/20 at 00:00; Stop 05/21/20 at 09:55; Status DC Labetalol HCl (Normodyne Iv Push) 10 mg PRN Q4HRS PRN IVP HYPERTENSION, 2ND CHOICE Last administered on 05/19/20at 09:04; Start 05/13/20 at 12:00 Sodium Chloride 1,000 ml @ 1,000 mls/hr Q1H PRN IV hypotension; Start 05/13/20 at 12:00; Stop 05/13/20 at 19:00; Status DC Sodium Chloride 1,000 ml @ 400 mls/hr Q2H30M PRN IV PATENCY; Start 05/13/20 at 12:00; Stop 05/13/20 at 19:00; Status DC Info (PHARMACY MONITORING -- do not chart) 1 each PRN DAILY PRN MC SEE COMMENTS; Start 05/13/20 at 12:00; Status UNV Info (PHARMACY MONITORING -- do not chart) 1 each PRN DAILY PRN MC SEE COMMENTS; Start 05/13/20 at 12:00; Status UNV Heparin Sodium (Porcine) (Heparin Sodium) 5,000 unit Q12HR SQ Last administered on 05/23/20at 08:39; Start 05/13/20 at 21:00 Amlodipine Besylate (Norvasc) 10 mg DAILY PO Last administered on 05/23/20at 08:29; Start 05/14/20 at 12:00 Hydralazine HCl (Apresoline Inj) 25 mg TID IVP Last administered on 05/16/20at 07:42; Start 05/14/20 at 12:00; Stop 05/16/20 at 13:17; Status DC Furosemide (Lasix) 80 mg 1X ONCE IVP Last administered on 05/14/20at 12:03; Start 05/14/20 at 12:00; Stop 05/14/20 at 12:01; Status DC Hydralazine HCl (Apresoline Inj) 10 mg PRN Q4HRS PRN IVP ELEVATED BP, 1ST CHOICE Last administered on 05/19/20at 23:07; Start 05/16/20 at 12:15 Hydralazine HCl (Apresoline) 50 mg TID PO ; Start 05/16/20 at 14:00; Stop 05/16/20 at 13:25; Status DC Carvedilol (Coreg) 12.5 mg BIDWMEALS PO ; Start 05/16/20 at 17:00; Stop 05/16/20 at 13:25; Status DC Carvedilol (Coreg) 3.125 mg BIDWMEALS PO Last administered on 05/16/20at 17:30; Start 05/16/20 at 17:00; Stop 05/17/20 at 08:15; Status DC Hydralazine HCl (Apresoline) 25 mg BID PO Last administered on 05/22/20at 08:45; Start 05/16/20 at 21:00; Stop 05/22/20 at 16:52; Status DC Carvedilol (Coreg) 6.25 mg BIDWMEALS PO Last administered on 05/23/20at 08:30; Start 05/17/20 at 08:15 Dexmedetomidine HCl 400 mcg/ Sodium Chloride 100 ml @ 0 mls/hr CONT PRN IV PER PROTOCOL Last administered on 05/18/20at 04:06; Start 05/17/20 at 09:45; Stop 05/19/20 at 11:32; Status DC Sodium Chloride 500 ml @ 500 mls/hr 1X PRN PRN IV PER PROTOCOL; Start 05/17/20 at 09:45 Atropine Sulfate (ATROPINE 0.5mg SYRINGE) 0.5 mg PRN Q5MIN PRN IV SEE COMMENTS; Start 05/17/20 at 09:45 Haloperidol Lactate (Haldol Inj) 5 mg Q8HRS IVP Last administered on 05/18/20at 06:07; Start 05/17/20 at 14:00; Stop 05/18/20 at 18:42; Status DC Furosemide (Lasix) 40 mg 1X ONCE IVP Last administered on 05/17/20at 18:00; Start 05/17/20 at 17:30; Stop 05/17/20 at 17:31; Status DC Furosemide (Lasix) 40 mg DAILY IVP Last administered on 05/18/20at 08:03; Start 05/18/20 at 09:00; Stop 05/18/20 at 12:32; Status DC Insulin Glargine (Lantus Syringe) 14 unit DAILY SQ Last administered on 05/23/20at 08:38; Start 05/18/20 at 11:00 Furosemide (Lasix) 40 mg PRN DAILY PRN IVP SEE COMMENTS; Start 05/18/20 at 12:45 Haloperidol Lactate (Haldol Inj) 5 mg PRN Q8HRS PRN IVP DELIRIUM; Start 05/18/20 at 18:45 Zolpidem Tartrate (Ambien) 5 mg PRN QHS PRN PO INSOMNIA Last administered on 05/20/20at 23:11; Start 05/19/20 at 10:30 Amino Acids/ Glycerin/ Electrolytes 1,000 ml @ 80 mls/hr [id number] IV Last administered on 05/21/20at 01:10; Start 05/19/20 at 11:15; Stop 05/21/20 at 09:18; Status DC Methylprednisolone Sodium Succinate (SOLU-Medrol 125MG VIAL) 60 mg BID IV Last administered on 05/23/20at 08:30; Start 05/19/20 at 21:00 Insulin Human Lispro (HumaLOG) 0-5 UNITS TIDWMEALS SQ Last administered on 05/22/20 17:19; Start 05/21/20 at 12:00 Pantoprazole Sodium (Protonix) 40 mg DAILYAC PO Last administered on 05/23/20at 06:10; Start 05/22/20 at 07:30 Hydralazine HCl (Apresoline) 50 mg BID PO Last administered on 05/23/20at 08:29; Start 05/22/20 at 21:00 Active Scripts Active Reported [amlodipine benazep] Unknown Dose PO Proventil Hfa (Albuterol Sulfate) 6.7 Gm Hfa.aer.ad 1 Puff INH PRN Q6HRS PRN Advair 100-50 Diskus (Fluticasone/Salmeterol) 1 Each Disk.w.dev 1 Puff IH BID Vitals/I & O Vital Sign - Last 24 Hours 05/22/20 05/22/20 05/22/20 05/22/20 08:44 08:45 08:45 11:04 Temp 98.8 98.8 Pulse 87 87 87 85 Resp 20 B/P (MAP) 150/84 150/84 150/84 146/90 (108) Pulse Ox 97 O2 Delivery Nasal Cannula O2 Flow Rate 4.0 05/22/20 05/22/20 05/22/20 05/22/20 14:33 17:14 19:00 19:30 Temp 98.5 99.0 98.5 99.0 Pulse 98 98 95 Resp 20 18 B/P (MAP) 142/81 (101) 142/81 181/82 (115) Pulse Ox 89 98 O2 Delivery Nasal Cannula Nasal Cannula Nasal Cannula O2 Flow Rate 4.0 4.0 4.0 05/22/20 05/22/20 05/22/20 05/23/20 19:31 21:07 22:56 02:47 Temp 98.0 98.8 98.0 98.8 Pulse 95 95 86 81 Resp 18 18 B/P (MAP) 156/76 (102) 156/76 137/87 (104) 146/79 (101) Pulse Ox 97 93 O2 Delivery Nasal Cannula Nasal Cannula O2 Flow Rate 4.0 4.0 05/23/20 05/23/20 05/23/20 05/23/20 07:00 08:29 08:29 08:30 Temp 98.6 98.6 Pulse 84 95 93 95 Resp 18 B/P (MAP) 154/88 (110) 154/88 154/88 154/88 Pulse Ox 99 O2 Delivery Nasal Cannula O2 Flow Rate 4.0 Intake and Output 05/22/20 05/22/20 05/23/20 15:00 23:00 07:00 Intake Total 460 ml 240 ml 110 ml Output Total 100 ml 300 ml 525 ml Balance 360 ml -60 ml -415 ml Justicifation of Admission Dx: Justifications for Admission: Justification of Admission Dx: Yes CHF: Hemodynamic Instability Respiratory Failure: Mechanical Ventilation Acute COPD Exacerbation: Acute COPD Exacerbation Altered Mental Status: Altered Mental Status RAJ ELLIOTT MD May 23, 2020 08:44
--- NOTE | 2020-05-23 08:48 | PDOC ---
PULMONARY PROGRESS NOTES Subjective Patient continues to improve, no increasing shortness of air Vitals Vital Signs Date Time Temp Pulse Resp B/P (MAP) Pulse Ox O2 Delivery O2 Flow Rate FiO2 05/23/20 08:30 95 154/88 05/23/20 07:00 98.6 18 99 Nasal Cannula 4.0 98.6 ROS: No Nausea, No Chest Pain, No Abdominal Pain, No Increase Cough General: Alert Lungs: Other (decrease bs) Cardiovascular: S1 Abdomen: Soft, Other (obese) Extremities: Other (BLE +1) Skin: Warm, Dry Labs Laboratory Tests Test 05/21/20 12:12 05/21/20 17:11 05/21/20 21:05 05/22/20 07:26 Glucose (Fingerstick) 192 mg/dL (70-99) 141 mg/dL (70-99) 208 mg/dL (70-99) 149 mg/dL (70-99) Test 05/22/20 11:19 05/22/20 16:17 05/22/20 21:09 05/23/20 07:14 Glucose (Fingerstick) 166 mg/dL (70-99) 188 mg/dL (70-99) 201 mg/dL (70-99) 125 mg/dL (70-99) Laboratory Tests Test 05/22/20 11:19 05/22/20 16:17 05/22/20 21:09 05/23/20 07:14 Glucose (Fingerstick) 166 mg/dL (70-99) 188 mg/dL (70-99) 201 mg/dL (70-99) 125 mg/dL (70-99) Medications Active Scripts Medications Dose Route/Sig Max Daily Dose Days Date Category [amlodipine benazep] Unknown Dose PO 05/08/20 Reported Proventil Hfa (Albuterol Sulfate) 6.7 Gm Hfa.aer.ad 1 Puff INH PRN Q6HRS PRN 05/08/20 Reported Advair 100-50 Diskus (Fluticasone/Salmeterol) 1 Each Disk.w.dev 1 Puff IH BID 05/08/20 Reported Comments Chest x-ray 05/17 reviewed CTA chest IMPRESSION: 1. No evidence for acute pulmonary embolus the level of the subsegmental branches. More peripheral vessels are not well assessed. 2. Are seen moderate bilateral pleural effusions are seen. 3. Lower atelectasis of the lower lobes and atelectasis of the middle lobe without obvious obstructing mass, etiology is uncertain. Of note there may be small hilar lymph nodes bilaterally that are secured by the pleural effusions and hilar infiltration. Consider further evaluation with bronchoscopy or short interval follow-up CT following resolution of the acute process to further delineate. 4. Indeterminate right adrenal nodule can be correlated with prior imaging is available otherwise close attention on follow-up is recommended. Impression . 1. Acute hypoxic and hypercapnic respiratory failure secondary to multifactorial etiologies including suspected chronic obstructive pulmonary disease with acute exacerbation, non-ST myocardial infarction, and cocaine overdose. Status post extubation 7 1 2. Underlying chronic obstructive pulmonary disease, clinically suspected. 3. Abnormal chest x-ray with prominent interstitial markings, probably related to mild interstitial edema.---improved 4. Abnormal troponin consistent with non-ST myocardial infarction. 5. Acute kidney injury-- improving 6. Abnormal LFTs. Could be related to hypoperfusion. 7. Urine drug screen positive for cocaine. 8. CT chest neg for PE 9. Arslan atelectasis 10. Delirium CT chest IMPRESSION: 1. No evidence for acute pulmonary embolus the level of the subsegmental branches. More peripheral vessels are not well assessed. 2. Are seen moderate bilateral pleural effusions are seen. 3. Lower atelectasis of the lower lobes and atelectasis of the middle lobe without obvious obstructing mass, etiology is uncertain. Of note there may be small hilar lymph nodes bilaterally that are secured by the pleural effusions and hilar infiltration. Consider further evaluation with bronchoscopy or short interval follow-up CT following resolution of the acute process to further delineate. 4. Indeterminate right adrenal nodule can be correlated with prior imaging is available otherwise close attention on follow-up is recommended. Plan . Transfer to [facility] rehab Follow-up with PCP once discharged TOÑA WAGONER MD May 23, 2020 08:47
--- NOTE | 2020-05-23 09:10 | PDOC ---
PROGRESS NOTES Chief Complaint Chief Complaint late entry, pt seen 7.6, then computer down, will need to DC to rehab, cannot transfer to [facility] for maybe a week, eval during ot treatment, he is getting better Respiratory failure requiring vent support 75% fio2 COPD ACUTE HYPOXIC / HYPERCAPNIC RESP FAILURE Slight improvement with persistent basilar density bilaterally more on the left. CXR 05/10 Screen COVID-19 virus infection neg 05/09 NSTEMI (non-ST elevated myocardial infarction) left ventricular systolic function is mildly impaired. Ejection Fraction is 45%. tricuspid regurgitation with an estimated PAP of 54 mmHg. COCAINE ABUSE, present on admit Morbid obesity DM2 EVY - required HD temporariliy, RENAL FX IMPROVING EVY Echogenic appearing bilateral kidneys probably medical renal disease., worse No evidence of hydronephrosis. negative COVID testing Indeterminate right adrenal nodule can be correlated with prior imaging iF available otherwise close attention on follow-up Hypertension; remains elevated Tobaccoism; discussed/encouraged cessation; verbalizes desire to quit History of Present Illness History of Present Illness 05/17: Extubated 05/22: better po intake this AM, will DC the PPN. will DC tele, no current CV problem. may have diet with supervision and thickened per speech. oob to chair, doing better Overnight afebrile Vitals Vitals Vital Signs Date Time Temp Pulse Resp B/P (MAP) Pulse Ox O2 Delivery O2 Flow Rate FiO2 05/23/20 08:30 95 154/88 05/23/20 07:00 98.6 18 99 Nasal Cannula 4.0 98.6 Physical Exam Physical Exam Heart: RRR Abdomen: obese Neurology: SEDATED General: Cooperative, No acute distress, Other (INTUBATED AND SEDATED) Heart: Regular rate, Normal S1, Normal S2 Lungs: Other (decrease bs) Abdomen: Normal bowel sounds, Soft, No tenderness Extremities: No clubbing, No cyanosis, No edema Skin: No breakdown, No significant lesion Labs LABS Laboratory Tests Test 05/22/20 11:19 05/22/20 16:17 05/22/20 21:09 05/23/20 07:14 Glucose (Fingerstick) 166 mg/dL (70-99) 188 mg/dL (70-99) 201 mg/dL (70-99) 125 mg/dL (70-99) Assessment and Plan Assessmemt and Plan Problems Medical Problems: (1) Cocaine abuse Status: Acute (2) NSTEMI (non-ST elevated myocardial infarction) Status: Acute (3) Respiratory failure Status: Acute (4) Suspected COVID-19 virus infection Status: Acute Comment Review of Relevant I have reviewed the following items jeffrey (where applicable) has been applied. Labs Laboratory Tests Test 05/21/20 12:12 05/21/20 17:11 05/21/20 21:05 05/22/20 07:26 Glucose (Fingerstick) 192 mg/dL (70-99) 141 mg/dL (70-99) 208 mg/dL (70-99) 149 mg/dL (70-99) Test 05/22/20 11:19 05/22/20 16:17 05/22/20 21:09 05/23/20 07:14 Glucose (Fingerstick) 166 mg/dL (70-99) 188 mg/dL (70-99) 201 mg/dL (70-99) 125 mg/dL (70-99) Laboratory Tests Test 05/22/20 11:19 05/22/20 16:17 05/22/20 21:09 05/23/20 07:14 Glucose (Fingerstick) 166 mg/dL (70-99) 188 mg/dL (70-99) 201 mg/dL (70-99) 125 mg/dL (70-99) Microbiology 05/08/20 Blood Culture - Final, Complete NO GROWTH AFTER 5 DAYS Medications Current Medications Propofol 50 ml @ As Directed STK-MED ONCE IV ; Start 05/08/20 at 07:33; Stop 05/08/20 at 07:33; Status DC Propofol 100 ml @ 0 mls/hr CONT PRN IV SEE PROTOCOL Last administered on 05/18/20at 04:04; Start 05/08/20 at 07:45; Stop 05/18/20 at 18:04; Status DC Fentanyl Citrate (Fentanyl 2ml Vial) 50 mcg PRN Q1HR PRN IV SEE COMMENTS Last administered on 05/08/20at 12:44; Start 05/08/20 at 07:45; Stop 05/18/20 at 18:04; Status DC Chlorhexidine Gluconate (Peridex) 15 ml BID MM Last administered on 05/16/20at 20:05; Start 05/08/20 at 09:00; Stop 05/17/20 at 10:45; Status DC Etomidate (Amidate) 20 mg 1X ONCE IV Last administered on 05/08/20at 07:30; Start 05/08/20 at 07:45; Stop 05/08/20 at 09:04; Status DC Succinylcholine Chloride (Anectine) 100 mg 1X ONCE IV Last administered on 05/08/20at 07:31; Start 05/08/20 at 07:45; Stop 05/08/20 at 09:04; Status DC Albuterol/ Ipratropium (Duoneb) 6 ml 1X ONCE NEB ; Start 05/08/20 at 07:45; Stop 05/08/20 at 09:04; Status DC Methylprednisolone Sodium Succinate (SOLU-Medrol 125MG VIAL) 125 mg 1X ONCE IV Last administered on 05/08/20at 08:31; Start 05/08/20 at 07:45; Stop 05/08/20 at 09:04; Status DC Albuterol Sulfate (Ventolin Neb Soln) 2.5 mg 1X ONCE NEB ; Start 05/08/20 at 07:45; Stop 05/08/20 at 08:56; Status DC Ceftriaxone Sodium (Rocephin) 1 gm 1X ONCE IVP Last administered on 05/08/20at 08:31; Start 05/08/20 at 07:45; Stop 05/08/20 at 09:04; Status DC Propofol (Diprivan) 40 mg 1X ONCE IV ; Start 05/08/20 at 08:00; Stop 05/08/20 at 09:04; Status DC Fentanyl Citrate 30 ml @ 0 mls/hr CONT PRN IV SEE PROTOCOL Last administered on 05/18/20at 04:52; Start 05/08/20 at 08:15; Stop 05/18/20 at 18:42; Status DC Midazolam HCl 100 ml @ 0 mls/hr CONT PRN IV SEE PROTOCOL Last administered on 05/17/20at 08:57; Start 05/08/20 at 08:15; Stop 05/18/20 at 18:04; Status DC Sodium Chloride 1,000 ml @ 1,000 mls/hr 1X ONCE IV Last administered on at 08:47; Start 05/08/20 at 08:30; Stop 05/08/20 at 09:29; Status DC Midazolam HCl (Versed) 5 mg 1X ONCE IV Last administered on 05/08/20at 08:33; Start 05/08/20 at 08:30; Stop 05/08/20 at 09:04; Status DC Ondansetron HCl (Zofran) 4 mg PRN Q8HRS PRN IV NAUSEA/VOMITING; Start 05/08/20 at 08:45; Stop 05/09/20 at 08:44; Status DC Aspirin (Aspirin Rectal Supp) 300 mg 1X ONCE MO Last administered on 05/08/20at 10:00; Start 05/08/20 at 08:45; Stop 05/08/20 at 09:04; Status DC Sodium Chloride (Normal Saline Flush) 3 ml QSHIFT PRN IV AFTER MEDS AND BLOOD DRAWS; Start 05/08/20 at 11:30; Stop 05/08/20 at 18:55; Status DC Sodium Chloride 1,000 ml @ 60 mls/hr [id number] IV Last administered on 05/08/20at 12:53; Start 05/08/20 at 11:24; Stop 05/08/20 at 18:55; Status DC Ondansetron HCl (Zofran) 4 mg PRN Q4HRS PRN IV NAUSEA/VOMITING; Start 05/08/20 at 11:30; Stop 05/08/20 at 18:55; Status DC Acetaminophen (Tylenol Supp) 650 mg PRN Q4HRS PRN MO TEMP OVER 100.4F OR MILD PAIN; Start 05/08/20 at 11:30; Stop 05/08/20 at 18:47; Status DC Sodium Monofluorophosphate (Fleet Adult) 133 ml PRN DAILY PRN MO CONSTIPATION; Start 05/08/20 at 11:30; Stop 05/08/20 at 18:55; Status DC Albuterol/ Ipratropium (Duoneb) 3 ml Q4H NEB ; Start 05/08/20 at 11:30; Stop 05/08/20 at 15:37; Status DC Enoxaparin Sodium (Lovenox 40mg Syringe) 40 mg DAILY SQ ; Start 05/09/20 at 09:00; Stop 05/08/20 at 18:54; Status DC Pantoprazole Sodium (PROTONIX VIAL for IV PUSH) 40 mg DAILYAC IVP Last administered on 05/21/20at 09:01; Start 05/08/20 at 11:30; Stop 05/21/20 at 14:27; Status DC Etomidate (Amidate) 40 mg 1X ONCE IV Last administered on 05/08/20at 07:57; Start 05/08/20 at 07:55; Stop 05/08/20 at 12:05; Status DC Methylprednisolone Sodium Succinate (SOLU-Medrol 125MG VIAL) 60 mg Q8HRS IV Last administered on 05/19/20at 06:19; Start 05/08/20 at 14:00; Stop 05/19/20 at 11:32; Status DC Midazolam HCl (Versed) 5 mg PRN Q15MIN PRN IV SEDATION Last administered on 05/08/20at 12:32; Start 05/08/20 at 08:00 Enoxaparin Sodium (Lovenox Per Pharmacy Prophylaxis Dosing) 1 each PRN DAILY PRN MC SEE COMMENTS; Start 05/08/20 at 16:00; Stop 05/10/20 at 09:14; Status DC Sodium Chloride (Normal Saline Flush) 3 ml QSHIFT PRN IV AFTER MEDS AND BLOOD DRAWS; Start 05/08/20 at 16:15 Sodium Chloride 1,000 ml @ 50 mls/hr Q20H IV Last administered on 05/18/20at 17:00; Start 05/08/20 at 16:01; Stop 05/19/20 at 11:02; Status DC Ondansetron HCl (Zofran) 4 mg PRN Q4HRS PRN IV NAUSEA/VOMITING; Start 05/08/20 at 16:15 Acetaminophen (Tylenol Supp) 650 mg PRN Q4HRS PRN MO TEMP OVER 100.4F OR MILD PAIN; Start 05/08/20 at 16:15 Sodium Monofluorophosphate (Fleet Adult) 133 ml PRN DAILY PRN MO CONSTIPATION; Start 05/08/20 at 16:15 Albuterol/ Ipratropium (Duoneb) 3 ml Q4H NEB ; Start 05/08/20 at 16:15; Stop 05/08/20 at 18:45; Status DC Enoxaparin Sodium (Lovenox 40mg Syringe) 40 mg Q24H SQ Last administered on 05/09/20at 17:04; Start 05/08/20 at 17:00; Stop 05/10/20 at 09:14; Status DC Ceftriaxone Sodium (Rocephin) 1 gm Q24H IVP Last administered on 05/19/20at 08:19; Start 05/09/20 at 08:00; Stop 05/19/20 at 11:32; Status DC Aspirin (Aspirin Chewable) 81 mg DAILYWBKFT PO ; Start 05/08/20 at 17:30; Stop 05/08/20 at 17:27; Status DC Aspirin (Aspirin Chewable) 81 mg DAILYWBKFT PO Last administered on 05/23/20at 08:30; Start 05/09/20 at 08:00 Albuterol Sulfate (Ventolin Neb Soln) 2.5 mg PRN Q4HRS PRN NEB SHORTNESS OF BREATH; Start 05/08/20 at 19:00 Amlodipine Besylate (Norvasc) 10 mg 1X ONCE PO Last administered on 05/09/20at 14:31; Start 05/09/20 at 14:30; Stop 05/09/20 at 14:31; Status DC Clonidine HCl (Catapres) 0.1 mg PRN Q2HR PRN PO HYPERTENSION Last administered on 05/13/20at 10:18; Start 05/09/20 at 14:30; Stop 05/13/20 at 11:34; Status DC Enoxaparin Sodium (Lovenox Per Pharmacy Treatment Dosing) 1 each PRN DAILY PRN MC SEE COMMENTS; Start 05/10/20 at 09:30; Status Cancel Enoxaparin Sodium (Lovenox 120mg Syringe) 120 mg DAILY SQ Last administered on 05/10/20at 10:19; Start 05/10/20 at 10:00; Stop 05/10/20 at 10:48; Status DC Heparin Sodium/ Dextrose 250 ml @ 10 mls/hr CONT PRN IV PER PROTOCOL Last administered on 05/11/20at 20:59; Start 05/10/20 at 11:00; Stop 05/13/20 at 13:35; Status DC Heparin Sodium (Porcine) (Heparin Sodium) 2,950 unit PRN Q6HRS PRN IV FOR UFH LEVEL LESS THAN 0.2; Start 05/10/20 at 11:00; Stop 05/13/20 at 13:36; Status DC Polyethylene Glycol (miraLAX PACKET) 17 gm PRN DAILY PRN PO CONSTIPATION Last administered on 05/22/20at 08:44; Start 05/10/20 at 16:00 Lidocaine HCl (Buffered Lidocaine 1%) 3 ml STK-MED ONCE .ROUTE ; Start 05/11/20 at 13:30; Stop 05/11/20 at 13:30; Status DC Lidocaine HCl (Buffered Lidocaine 1%) 6 ml 1X ONCE INJ Last administered on 05/11/20at 13:50; Start 05/11/20 at 14:00; Stop 05/11/20 at 14:01; Status DC Sodium Chloride 1,000 ml @ 1,000 mls/hr Q1H PRN IV hypotension; Start 05/11/20 at 15:19; Stop 05/11/20 at 21:18; Status DC Info (PHARMACY MONITORING -- do not chart) 1 each PRN DAILY PRN MC SEE COMMENTS; Start 05/11/20 at 15:30; Status Cancel Info (PHARMACY MONITORING -- do not chart) 1 each PRN DAILY PRN MC SEE ORIN TS; Start 05/11/20 at 15:30; Status UNV Sodium Chloride 1,000 ml @ 1,000 mls/hr Q1H PRN IV hypotension; Start 05/12/20 at 08:28; Stop 05/12/20 at 14:27; Status DC Albumin Human 200 ml @ 200 mls/hr 1X PRN PRN IV Hypotension; Start 05/12/20 at 08:30; Stop 05/12/20 at 14:29; Status DC Sodium Chloride (Normal Saline Flush) 10 ml 1X PRN PRN IV AP catheter pack; Start 05/12/20 at 08:30; Stop 05/13/20 at 08:29; Status DC Sodium Chloride (Normal Saline Flush) 10 ml 1X PRN PRN IV CATEGORY DEVELOPMENT MANAGER catheter pack; Start 05/12/20 at 08:30; Stop 05/13/20 at 08:29; Status DC Sodium Chloride 1,000 ml @ 400 mls/hr Q2H30M PRN IV PATENCY; Start 05/12/20 at 08:28; Stop 05/12/20 at 20:27; Status DC Info (PHARMACY MONITORING -- do not chart) 1 each PRN DAILY PRN MC SEE COMMENTS; Start 05/12/20 at 08:30; Status UNV Info (PHARMACY MONITORING -- do not chart) 1 each PRN DAILY PRN MC SEE COMMENTS; Start 05/12/20 at 08:30 Info (Anti-Coagulation Monitoring By Pharmacy) 1 each PRN DAILY PRN MC SEE COMMENTS; Start 05/12/20 at 09:15; Stop 05/13/20 at 13:35; Status DC Iohexol (Omnipaque 350 Mg/ml) 100 ml 1X ONCE IV Last administered on 05/12/20at 15:45; Start 05/12/20 at 11:45; Stop 05/12/20 at 11:46; Status DC Info (CONTRAST GIVEN -- Rx MONITORING) 1 each PRN DAILY PRN MC SEE COMMENTS; Start 05/12/20 at 11:45; Stop 05/14/20 at 11:44; Status DC Insulin Human Lispro (HumaLOG) 0-5 UNITS TIDWMEALS SQ Last administered on 05/12/20at 18:16; Start 05/12/20 at 13:00; Stop 05/12/20 at 19:02; Status DC Dextrose (Dextrose 50%-Water Syringe) 12.5 gm PRN Q15MIN PRN IV SEE COMMENTS; Start 05/12/20 at 12:45 Dextrose (Iv Dextrose 5%) 250 ml PRN Q15MIN PRN IV SEE COMMENTS; Start 05/12/20 at 12:45; Stop 05/21/20 at 14:10; Status DC Insulin Human Lispro (HumaLOG) 0-5 UNITS Q6HRS SQ Last administered on 05/18/20at 06:15; Start 05/13/20 at 00:00; Stop 05/21/20 at 09:55; Status DC Labetalol HCl (Normodyne Iv Push) 10 mg PRN Q4HRS PRN IVP HYPERTENSION, 2ND CHOICE Last administered on 05/19/20at 09:04; Start 05/13/20 at 12:00 Sodium Chloride 1,000 ml @ 1,000 mls/hr Q1H PRN IV hypotension; Start 05/13/20 at 12:00; Stop 05/13/20 at 19:00; Status DC Sodium Chloride 1,000 ml @ 400 mls/hr Q2H30M PRN IV PATENCY; Start 05/13/20 at 12:00; Stop 05/13/20 at 19:00; Status DC Info (PHARMACY MONITORING -- do not chart) 1 each PRN DAILY PRN MC SEE COMMENTS; Start 05/13/20 at 12:00; Status UNV Info (PHARMACY MONITORING -- do not chart) 1 each PRN DAILY PRN MC SEE COMMENTS; Start 05/13/20 at 12:00; Status UNV Heparin Sodium (Porcine) (Heparin Sodium) 5,000 unit Q12HR SQ Last administered on 05/23/20at 08:39; Start 05/13/20 at 21:00 Amlodipine Besylate (Norvasc) 10 mg DAILY PO Last administered on 05/23/20at 08:29; Start 05/14/20 at 12:00 Hydralazine HCl (Apresoline Inj) 25 mg TID IVP Last administered on 05/16/20at 07:42; Start 05/14/20 at 12:00; Stop 05/16/20 at 13:17; Status DC Furosemide (Lasix) 80 mg 1X ONCE IVP Last administered on 05/14/20at 12:03; Start 05/14/20 at 12:00; Stop 05/14/20 at 12:01; Status DC Hydralazine HCl (Apresoline Inj) 10 mg PRN Q4HRS PRN IVP ELEVATED BP, 1ST CHOICE Last administered on 05/19/20at 23:07; Start 05/16/20 at 12:15 Hydralazine HCl (Apresoline) 50 mg TID PO ; Start 05/16/20 at 14:00; Stop 05/16/20 at 13:25; Status DC Carvedilol (Coreg) 12.5 mg BIDWMEALS PO ; Start 05/16/20 at 17:00; Stop 05/16/20 at 13:25; Status DC Carvedilol (Coreg) 3.125 mg BIDWMEALS PO Last administered on 05/16/20at 17:30; Start 05/16/20 at 17:00; Stop 05/17/20 at 08:15; Status DC Hydralazine HCl (Apresoline) 25 mg BID PO Last administered on 05/22/20at 08:45; Start 05/16/20 at 21:00; Stop 05/22/20 at 16:52; Status DC Carvedilol (Coreg) 6.25 mg BIDWMEALS PO Last administered on 05/23/20at 08:30; Start 05/17/20 at 08:15 Dexmedetomidine HCl 400 mcg/ Sodium Chloride 100 ml @ 0 mls/hr CONT PRN IV PER PROTOCOL Last administered on 05/18/20at 04:06; Start 05/17/20 at 09:45; Stop 05/19/20 at 11:32; Status DC Sodium Chloride 500 ml @ 500 mls/hr 1X PRN PRN IV PER PROTOCOL; Start 05/17/20 at 09:45 Atropine Sulfate (ATROPINE 0.5mg SYRINGE) 0.5 mg PRN Q5MIN PRN IV SEE COMMENTS; Start 05/17/20 at 09:45 Haloperidol Lactate (Haldol Inj) 5 mg Q8HRS IVP Last administered on 05/18/20at 06:07; Start 05/17/20 at 14:00; Stop 05/18/20 at 18:42; Status DC Furosemide (Lasix) 40 mg 1X ONCE IVP Last administered on 05/17/20at 18:00; Start 05/17/20 at 17:30; Stop 05/17/20 at 17:31; Status DC Furosemide (Lasix) 40 mg DAILY IVP Last administered on 05/18/20at 08:03; Start 05/18/20 at 09:00; Stop 05/18/20 at 12:32; Status DC Insulin Glargine (Lantus Syringe) 14 unit DAILY SQ Last administered on 05/23/20a t 08:38; Start 05/18/20 at 11:00 Furosemide (Lasix) 40 mg PRN DAILY PRN IVP SEE COMMENTS; Start 05/18/20 at 12:45 Haloperidol Lactate (Haldol Inj) 5 mg PRN Q8HRS PRN IVP DELIRIUM; Start 05/18/20 at 18:45 Zolpidem Tartrate (Ambien) 5 mg PRN QHS PRN PO INSOMNIA Last administered on 05/20/20at 23:11; Start 05/19/20 at 10:30 Amino Acids/ Glycerin/ Electrolytes 1,000 ml @ 80 mls/hr [id number] IV Last administered on 05/21/20at 01:10; Start 05/19/20 at 11:15; Stop 05/21/20 at 09:18; Status DC Methylprednisolone Sodium Succinate (SOLU-Medrol 125MG VIAL) 60 mg BID IV Last administered on 05/23/20 08:30; Start 05/19/20 at 21:00 Insulin Human Lispro (HumaLOG) 0-5 UNITS TIDWMEALS SQ Last administered on 05/22/20 17:19; Start 05/21/20 at 12:00 Pantoprazole Sodium (Protonix) 40 mg DAILYAC PO Last administered on 05/23/20 06:10; Start 05/22/20 at 07:30 Hydralazine HCl (Apresoline) 50 mg BID PO Last administered on 05/23/20at 08:29; Start 05/22/20 at 21:00 Active Scripts Active Reported [amlodipine benazep] Unknown Dose PO Proventil Hfa (Albuterol Sulfate) 6.7 Gm Hfa.aer.ad 1 Puff INH PRN Q6HRS PRN Advair 100-50 Diskus (Fluticasone/Salmeterol) 1 Each Disk.w.dev 1 Puff IH BID Vitals/I & O Vital Sign - Last 24 Hours 05/22/20 05/22/20 05/22/20 05/22/20 11:04 14:33 17:14 19:00 Temp 98.8 98.5 99.0 98.8 98.5 99.0 Pulse 85 98 98 95 Resp 20 20 18 B/P (MAP) 146/90 (108) 142/81 (101) 142/81 181/82 (115) Pulse Ox 97 89 98 O2 Delivery Nasal Cannula Nasal Cannula Nasal Cannula O2 Flow Rate 4.0 4.0 4.0 05/22/20 05/22/20 05/22/20 05/22/20 19:30 19:31 21:07 22:56 Temp 98.0 98.0 Pulse 95 95 86 Resp 18 B/P (MAP) 156/76 (102) 156/76 137/87 (104) Pulse Ox 97 O2 Delivery Nasal Cannula Nasal Cannula O2 Flow Rate 4.0 4.0 05/23/20 05/23/20 05/23/20 05/23/20 02:47 07:00 08:29 08:29 Temp 98.8 98.6 98.8 98.6 Pulse 81 84 95 93 Resp 18 18 B/P (MAP) 146/79 (101) 154/88 (110) 154/88 154/88 Pulse Ox 93 99 O2 Delivery Nasal Cannula Nasal Cannula O2 Flow Rate 4.0 4.0 05/23/20 08:30 Pulse 95 B/P (MAP) 154/88 Intake and Output 05/22/20 05/22/20 05/23/20 14:59 22:59 06:59 Intake Total 460 ml 240 ml 110 ml Output Total 100 ml 300 ml 525 ml Balance 360 ml -60 ml -415 ml Justicifation of Admission Dx: Justifications for Admission: Justification of Admission Dx: Yes CHF: Hemodynamic Instability Respiratory Failure: Mechanical Ventilation Acute COPD Exacerbation: Acute COPD Exacerbation Altered Mental Status: Altered Mental Status SANGEETA SUERO MD May 23, 2020 09:10
[2020-05-23 10:30] VITALS: BP 124/71
--- NOTE | 2020-05-23 12:03 | NUR ---
SS following up with discharge planning. Insurance authorization approved for [facility], ; fax [phone]. Physician notified. SS will continue to follow for discharge planning.
[2020-05-23] MEDS ORDERED: ASPI-630 PO (13:00)
[2020-05-23] MEDS ORDERED: CARV6.2511 PO (13:00)
[2020-05-23] MEDS ORDERED: AMLO10TA8 PO (13:00)
[2020-05-23] MEDS ORDERED: HYDR-2869 PO (13:00)
[2020-05-23] MEDS ORDERED: INSU100V35 SQ (13:01)
[2020-05-23] MEDS ORDERED: ZOLP5TAB PO (13:01)
[2020-05-23] MEDS ORDERED: PRED20TA PO (13:01)
[2020-05-23] MEDS ORDERED: POLY17PO28 PO (13:01)
[2020-05-23] MEDS ORDERED: FURO40TA4 PO (13:01)
[2020-05-23] MEDS ORDERED: INSU100V8 SQ (13:01)
[2020-05-23] MEDS ORDERED: PANT40TA77 PO (13:01)
[2020-05-23] MEDS ORDERED: LISI-338 PO (13:02)
--- NOTE | 2020-05-23 13:05 | SNU/HH DC ---
DISCHARGE ORDERS DISCHARGE INFORMATION: DISCHARGE DATE: May 23, 2020 FINAL DIAGNOSIS Problems Medical Problems: (1) Cocaine abuse Status: Acute (2) NSTEMI (non-ST elevated myocardial infarction) Status: Acute (3) Respiratory failure Status: Acute (4) Suspected COVID-19 virus infection Status: Acute CONDITION ON DISCHARGE: Stable CODE STATUS: Code Status: Full LONG TERM: SNF STAY <30 DAYS: Yes POST DISCHARGE ORDERS: ACTIVITY ORDERS: Resume previous activity WEIGHT BEARING STATUS: Full weight bearing DIET AFTER DISCHARGE: Cardiac CHECKS AFTER DISCHARGE: CHECKS AFTER DISCHARGE: Check blood press - daily, Check blood sugar, ac/hs, Check your Temp as needed, Weigh Yourself Daily FOLLOW-UP: ADDITIONAL FOLLOW-UP: Cardiology - [place], [place] LAB ORDERS FOR FOLLOW-UP: BMP weekly TREATMENT/EQUIPMENT ORDERS: RESPIRATORY EQUIPMENT NEEDED: Oxygen, Nebulizer, BiPAP (16/8, rate 18, FiO2 40% QHS and prn while sleeping during day) Physical Therapy For: Evalulation/Treatment Occupational Therapy For: Evaluation/Treatment DISCHARGE MEDICATIONS: Home Meds Active Scripts Lisinopril (LISINOPRIL) 5 Mg Tablet, 1 TAB PO DAILY for CHF for 30 Days, #30 TAB 1 Refill Prov:RAJ ELLIOTT MD 05/23/20 Furosemide (FUROSEMIDE) 40 Mg Tablet, 1 TAB PO DAILY for CHF for 30 Days, #30 TAB 1 Refill Prov:RAJ ELLIOTT MD 05/23/20 Prednisone (PREDNISONE) 20 Mg Tablet, 1 TAB PO DAILY for COPD for 5 Days, #5 TAB Prov:RAJ ELLIOTT MD 05/23/20 Pantoprazole Sodium (PANTOPRAZOLE SODIUM ) 40 Mg Tablet.dr, 40 MG PO DAILYAC for GERD/CAD for 90 Days, #90 TAB.SR 1 Refill Prov:RAJ ELLIOTT MD 05/23/20 Insulin Lispro (Admelog) 100 Unit/1 Ml Vial, 0 UNITS SQ TIDWMEALS for DM2 for 30 Days, #30 EACH Prov:RAJ ELLIOTT MD 05/23/20 Insulin Glargine,Hum.rec.anlog (LANTUS) 100 Unit/1 Ml Vial, 14 UNIT SQ DAILY for DM2 for 30 Days, #1 EACH 1 Refill Prov:RAJ ELLIOTT MD 05/23/20 Polyethylene Glycol 3350 (POLYETHYLENE GLYCOL 3350) 17 Gm Powd.pack, 17 GM PO PRN DAILY PRN for CONSTIPATION for 30 Days, #30 PKT Prov:RAJ ELLIOTT MD 05/23/20 Zolpidem Tartrate (AMBIEN) 5 Mg Tablet, 5 MG PO PRN QHS PRN for INSOMNIA for 7 Days, #7 TAB Prov:RAJ ELLIOTT MD 05/23/20 Aspirin (ASPIRIN) 81 Mg Tab.chew, 81 MG PO DAILYWBKFT for CAD for 90 Days, #90 TAB.CHEW 1 Refill Prov:RAJ ELLIOTT MD 05/23/20 Amlodipine Besylate (AMLODIPINE BESYLATE) 10 Mg Tablet, 10 MG PO DAILY for HTN for 90 Days, #90 TAB 1 Refill Prov:RAJ ELLIOTT MD 05/23/20 Carvedilol (CARVEDILOL ) 6.25 Mg Tablet, 6.25 MG PO BIDWMEALS for CHF for 90 Days, #180 TAB 1 Refill Prov:RAJ ELLIOTT MD 05/23/20 Hydralazine Hcl (HYDRALAZINE HCL) 50 Mg Tablet, 50 MG PO TID for CHF/HTN for 90 Days, #270 TAB 1 Refill Prov:RAJ ELLIOTT MD 05/23/20 Reported Medications [amlodipine benazep] No Conflict Check, PO 05/08/20 Albuterol Sulfate (Proventil Hfa) 6.7 Gm Hfa.aer.ad, 1 PUFF INH PRN Q6HRS PRN for SHORTNESS OF BREATH, INHALER 05/08/20 Fluticasone/Salmeterol (ADVAIR 100-50 DISKUS) 1 Each Disk.w.dev, 1 PUFF IH BID, #1 INHALER 5 Refills 05/08/20 RAJ ELLIOTT MD May 23, 2020 13:05
--- NOTE | 2020-05-23 13:16 | PDOC3 ---
Discharge Summary Visit Information Date of Admission: May 08, 2020 Date of Discharge: May 23, 2020 Admitting Diagnosis: Acute hypoxic respiratory failure Final Diagnosis Problems Medical Problems: (1) Cocaine abuse Status: Acute (2) NSTEMI (non-ST elevated myocardial infarction) Status: Acute (3) Respiratory failure Status: Acute (4) Suspected COVID-19 virus infection Status: Acute Brief Hospital Course Allergies Allergies Coded Allergies Type Severity Reaction Last Updated Verified No Known Drug Allergies 05/08/20 No Vital Signs Vital Signs Date Time Temp Pulse Resp B/P (MAP) Pulse Ox O2 Delivery O2 Flow Rate FiO2 05/23/20 10:30 98.3 90 18 124/71 (88) 97 Nasal Cannula 4.0 98.3 Lab Results Laboratory Tests Test 05/21/20 17:11 05/21/20 21:05 05/22/20 07:26 05/22/20 11:19 Glucose (Fingerstick) 141 mg/dL (70-99) 208 mg/dL (70-99) 149 mg/dL (70-99) 166 mg/dL (70-99) Test 05/22/20 16:17 05/22/20 21:09 05/23/20 07:14 05/23/20 11:17 Glucose (Fingerstick) 188 mg/dL (70-99) 201 mg/dL (70-99) 125 mg/dL (70-99) 227 mg/dL (70-99) Laboratory Tests Test 05/22/20 16:17 05/22/20 21:09 05/23/20 07:14 05/23/20 11:17 Glucose (Fingerstick) 188 mg/dL (70-99) 201 mg/dL (70-99) 125 mg/dL (70-99) 227 mg/dL (70-99) Brief Hospital Course Mr Key is a 54-year-old male who has history of COPD. He was brought in via EMS with a Renato coma scale of 8 and in severe respiratory distress on 05/08/2020 while visiting from [place], [place]. The patient was intubated in the Emergency Room. His urine drug screen was positive for cocaine. His arterial blood gases revealed a pH of 7.28, pCO2 of 59 and a pO2 of 167 on 100% FiO2. His rate has been increased and FiO2 has been reduced to 70%. He is currently sedated. He also had EVY with a creatinine of 2.2 and a BUN of 33. The patient's chest x-ray was reviewed and it showed mild interstitial prominence. Seen by cardiology, pulmononology and nephrology in consultation. 05/10: Echo: Ejection Fraction is 45%. Trace tricuspid regurgitation with an estimated PAP of 54 mmHg.ATN 05/11: required HD, last HD was on 05/12 05/17: Extubated 05/22: better po intake this AM, will DC the PPN. will DC tele, no current CV problem. may have diet with supervision and thickened per speech. oob to chair, doing better Due to his prolonged ICU stay he had significant physical deconditioning. He had failed follow-up for an outpatient sleep study, and required transition from ventilator to BiPAP 02/07 rate of 16 FiO2 40%. He did have renal recovery and was transitioned to IV Lasix and then p.o. Lasix for his congestive heart failure. He was given IV steroids for his hypoxic hypercapnic respiratory failure with COPD and transition to oral prednisone. Overnight afebrile. Still on O2 this morning. Feeling motivated to go to acute rehab. Still profoundly weak. Consults: Cardiology, nephrology, pulmonology Problem list: Respiratory failure requiring vent support 75% fio2 COPD ACUTE HYPOXIC / HYPERCAPNIC RESP FAILURE Slight improvement with persistent basilar density bilaterally more on the left. CXR 05/10 Screen COVID-19 virus infection neg 05/09 NSTEMI (non-ST elevated myocardial infarction) left ventricular systolic function is mildly impaired. Ejection Fraction is 45%. tricuspid regurgitation with an estimated PAP of 54 mmHg. COCAINE ABUSE, present on admit Morbid obesity DM2 EVY - required HD temporariliy, RENAL FX IMPROVING EVY Echogenic appearing bilateral kidneys probably medical renal disease., worse No evidence of hydronephrosis. negative COVID testing Indeterminate right adrenal nodule can be correlated with prior imaging iF available otherwise close attention on follow-up Hypertension; remains elevated Tobaccoism; discussed/encouraged cessation; verbalizes desire to quit Greater than 30 minutes spent on d/c to acute rehab Discharge Information Condition at Discharge: Improved Follow Up: Weeks (1) Disposition/Orders: D/C to Another Facility Scheduled Amlodipine Besylate (Amlodipine Besylate) 10 Mg Tablet, 10 MG PO DAILY for HTN for 90 Days, #90 Ref 1 Prescribed by: RAJ ELLIOTT MD on 05/23/20 1300 Aspirin (Aspirin) 81 Mg Tab.chew, 81 MG PO DAILYWBKFT for CAD for 90 Days, #90 Ref 1 Prescribed by: RAJ ELLIOTT MD on 05/23/20 1300 Carvedilol (Carvedilol ) 6.25 Mg Tablet, 6.25 MG PO BIDWMEALS for CHF for 90 Days, #180 Ref 1 Prescribed by: RAJ ELLIOTT MD on 05/23/20 1300 Fluticasone/Salmeterol (Advair 100-50 Diskus) 1 Each Disk.w.dev, 1 PUFF IH BID, #1 Ref 5 (Reported) Entered as Reported by: ALLIE LENNON RN on 05/08/20 1203 Last Taken: Unknown Dose on Unknown Date & Time Last Action: HELD on 05/14/20 1108 by PRASANNA FERNANDES MD Furosemide (Furosemide) 40 Mg Tablet, 1 TAB PO DAILY for CHF for 30 Days, #30 Ref 1 Prescribed by: RAJ ELLIOTT MD on 05/23/20 1301 Hydralazine Hcl (Hydralazine Hcl) 50 Mg Tablet, 50 MG PO TID for CHF/HTN for 90 Days, #270 Ref 1 Prescribed by: RAJ ELLIOTT MD on 05/23/20 1300 Insulin Glargine,Hum.rec.anlog (Lantus) 100 Unit/1 Ml Vial, 14 UNIT SQ DAILY for DM2 for 30 Days, #1 Ref 1 Prescribed by: RAJ ELLIOTT MD on 05/23/20 1301 Insulin Lispro (Admelog) 100 Unit/1 Ml Vial, 0 UNITS SQ TIDWMEALS for DM2 for 30 Days, #30 Prescribed by: RAJ ELLIOTT MD on 05/23/20 1301 Lisinopril (Lisinopril) 5 Mg Tablet, 1 TAB PO DAILY for CHF for 30 Days, #30 Ref 1 Prescribed by: RAJ ELLIOTT MD on 05/23/20 1302 Pantoprazole Sodium (Pantoprazole Sodium ) 40 Mg Tablet.dr, 40 MG PO DAILYAC for GERD/CAD for 90 Days, #90 Ref 1 Prescribed by: RAJ ELLIOTT MD on 05/23/20 1301 Prednisone (Prednisone) 20 Mg Tablet, 1 TAB PO DAILY for COPD for 5 Days, #5 Prescribed by: RAJ ELLIOTT MD on 05/23/20 1301 Scheduled PRN Albuterol Sulfate (Proventil Hfa) 6.7 Gm Hfa.aer.ad, 1 PUFF INH PRN Q6HRS PRN for SHORTNESS OF BREATH, (Reported) Entered as Reported by: ALLIE LENNON RN on 05/08/20 120 Last Taken: UNKNOWN on Unknown Date & Time Last Action: HELD on 05/14/20 110 by PRASANNA FERNANDES MD Polyethylene Glycol 3350 (Polyethylene Glycol 3350) 17 Gm Powd.pack, 17 GM PO PRN DAILY PRN for CONSTIPATION for 30 Days, #30 Prescribed by: RAJ ELLIOTT MD on 05/23/20 1301 Zolpidem Tartrate (Ambien) 5 Mg Tablet, 5 MG PO PRN QHS PRN for INSOMNIA for 7 Days, #7 Prescribed by: RAJ ELLIOTT MD on 05/23/20 1301 Miscellaneous Medications [amlodipine benazep] , Unknown Dose PO, (Reported) Entered as Reported by: ALLIE LENNON RN on 05/08/20 120 Last Taken: UNKNOWN on Unknown Date & Time Last Action: HELD on 05/14/201107 by PRASANNA FERNANDES MD Justicifation of Admission Dx: Justifications for Admission: Justification of Admission Dx: Yes CHF: Hemodynamic Instability Respiratory Failure: Mechanical Ventilation Acute COPD Exacerbation: Acute COPD Exacerbation Altered Mental Status: Altered Mental Status RAJ ELLIOTT MD May 23, 2020 13:16
--- NOTE | 2020-05-23 13:19 | NUR ---
SS following up with discharge planning. Discharge orders received for [facility], ; fax [phone]. Ss phoned and faxed discharge orders to [facility]. Pt will discharge today and go to [facility] at 1530. [facility] to provide transportation. Pt, pt's RN, and pt's family notified.
[2020-05-23 14:37] VITALS: BP 129/82
--- NOTE | 2020-05-23 15:00 | NUR ---
Discharge Note: [facility] Discharge instructions and discharge home medications reviewed with Other facility Crystal RN and a copy given. All questions have been answered and understanding verbalized. The following instructions and handouts were given: ARDS, [place] Discontinued lines and drains: Central Line TL intact. Patient discharged to Rehab Facility with Wheelchair Van Personnel via Wheelchair
--- NOTE | 2020-05-23 15:30 | PDOC ---
BELINDA NAVARRO SKI INSTRUCTOR 05/23/20 1530: CARDIO Progress Notes Date and Time Date of Service 05/23/20 Time of Evaluation 1140 Subjective Subjective: No Chest Pain, No shortness of breath, No Palpitations Vitals Vitals Vital Signs Date Time Temp Pulse Resp B/P (MAP) Pulse Ox O2 Delivery O2 Flow Rate FiO2 05/23/20 14:37 98.8 81 18 129/82 (98) 88 Room Air 98.8 05/23/20 10:30 4.0 Weight Weight [ ] Input and Output Intake and Output Intake and Output 05/23/20 07:00 Intake Total 810 ml Output Total 925 ml Balance -115 ml Intake Oral 810 ml Output Urine Total 925 ml # Voids 2 # Bowel Movements 1 Laboratory Labs Laboratory Tests Test 05/22/20 16:17 05/22/20 21:09 05/23/20 07:14 05/23/20 11:17 Glucose (Fingerstick) 188 mg/dL (70-99) 201 mg/dL (70-99) 125 mg/dL (70-99) 227 mg/dL (70-99) Microbiology Micro Microbiology 05/08/20 Blood Culture - Final, Complete NO GROWTH AFTER 5 DAYS Review of Systems Constitutional: yes: other (ON THE VENT SEDATED) Physical Exam Chest: Symmetric LUNGS: Clear to Auscultation Heart: RRR (SR ) Abdomen: Soft N/T, Other (obese) Extremities: Other (trace bilateral LE edema) Neurology: alert, oriented, follow commands Assessment Assessment 1. Acute on chronic respiratory failure secondary to combination of AECOPD and acute on chronic systolic and diastolic HF. s/p extubation 05/17. LVEF 45%. COVID negative. 2. NSTEMI; highest trop 1.6. likely demand mediated/type II. CP free. 3. Severe EVY: required HD. Now resolved. 4. Hypertension; remains elevated 5. Diabetes, II 6. Tobaccoism; discussed/encouraged cessation; verbalizes desire to quit 7. Substance abuse; UDS + cocaine: Advised on abstinence Recommendations Continue current antiHTN therapy ASA therapy Continue Coreg. No ACEi for now with recent EVY Outpatient ischemic evaluation; will have conducted through preparatory technician in [place] upon returning home. Supportive care. Justicifation of Admission Dx: Justifications for Admission: Justification of Admission Dx: Yes CHF: Hemodynamic Instability Respiratory Failure: Mechanical Ventilation Acute COPD Exacerbation: Acute COPD Exacerbation Altered Mental Status: Altered Mental Status TINY MARSHALL MD 05/23/20 1550: CARDIO Progress Notes Attending Co-Sign The patient was seen and interviewed as well as examined at the bedside. The chart was reviewed. The case was discussed. Agree with the plan of care. BELINDA NAVARRO APRN May 23, 2020 15:30 TINY MARSHALL MD May 23, 2020 15:50
== END 2020-05-23 15:00 | DRG 207 ==
LOC: ER 07:14 → ED HOLD 08:30 → 1 WEST ICU 09:51 → 2 SOUTH 05-19 14:21
PROVIDERS: ADMIT Family Medicine; ATTEND Family Medicine
PROC: 5A1955Z Respiratory Ventilation, Greater than 96 Consecutive Hours (ICD-10-PCS; principal; 2020-05-08)
PROC: 0BH17EZ Insertion of Endotracheal Airway into Trachea, Via Natural or Artificial Opening (ICD-10-PCS; 2020-05-08)
PROC: 02HV33Z Insertion of Infusion Device into Superior Vena Cava, Percutaneous Approach (ICD-10-PCS; 2020-05-11)
PROC: 5A09357 Assistance with Respiratory Ventilation, Less than 24 Consecutive Hours, Continuous Positive Airway Pressure (ICD-10-PCS; 2020-05-19)
PROC: 5A09357 Assistance with Respiratory Ventilation, Less than 24 Consecutive Hours, Continuous Positive Airway Pressure (ICD-10-PCS; 2020-05-20)
PROC: 5A09357 Assistance with Respiratory Ventilation, Less than 24 Consecutive Hours, Continuous Positive Airway Pressure (ICD-10-PCS; 2020-05-21)
PROC: 5A09357 Assistance with Respiratory Ventilation, Less than 24 Consecutive Hours, Continuous Positive Airway Pressure (ICD-10-PCS; 2020-05-22)
PROC: 02HV33Z Insertion of Infusion Device into Superior Vena Cava, Percutaneous Approach (ICD-10-PCS; 2020-05-22)
PROC: B548ZZA Ultrasonography of Superior Vena Cava, Guidance (ICD-10-PCS; 2020-05-22)
DX: J96.21 Acute and chronic respiratory failure with hypoxia (principal); I21.4 Non-ST elevation (NSTEMI) myocardial infarction; N17.0 Acute kidney failure with tubular necrosis; I50.43 Acute on chronic combined systolic (congestive) and diastolic (congestive) heart failure; J44.1 Chronic obstructive pulmonary disease with (acute) exacerbation; E46 Unspecified protein-calorie malnutrition; I13.0 Hypertensive heart and chronic kidney disease with heart failure and stage 1 through stage 4 chronic kidney disease, or unspecified chronic kidney disease; I31.3 Pericardial effusion (noninflammatory); I42.9 Cardiomyopathy, unspecified; J98.11 Atelectasis; Z20.828 Contact with and (suspected) exposure to other viral communicable diseases; F17.210 Nicotine dependence, cigarettes, uncomplicated; F14.10 Cocaine abuse, uncomplicated; J96.22 Acute and chronic respiratory failure with hypercapnia; D72.829 Elevated white blood cell count, unspecified; E11.65 Type 2 diabetes mellitus with hyperglycemia; E11.22 Type 2 diabetes mellitus with diabetic chronic kidney disease; E27.8 Other specified disorders of adrenal gland; E87.5 Hyperkalemia; G47.33 Obstructive sleep apnea (adult) (pediatric); I07.1 Rheumatic tricuspid insufficiency; I16.0 Hypertensive urgency; N18.9 Chronic kidney disease, unspecified; E66.01 Morbid (severe) obesity due to excess calories; Z68.34 Body mass index [BMI] 34.0-34.9, adult; Z82.49 Family history of ischemic heart disease and other diseases of the circulatory system
CPT/HCPCS: 31500; 36415; 36556; 36600; 51702; 71045; 71275; 74018; 76770; 76937; 80048; 80053; 80061; 80069; 80307; 81001; 82550; 82805; 82962; 83036; 83735; 83880; 84100; 84443; 84484; 85007; 85025; 85027; 85520; 85610; 86704; 86706; 87040; 87340; 93005; 93306; 93970; 94002; 94003; 94660; 94760; 96361; 96374; 96375; C1892; C9113; J0330; J0360; J0696; J1630; J1644; J1650; J1815; J1940; J2250; J2704; J2930; J3010; J3490; J7030; Q9967; 92526-GN; 92610-GN; 97110-GO; 97110-GP; 97116-GP; 97530-GO; 97530-GP; 97535-GO; 99291-25; G0378; U0003-CS